=== PATIENT | female | born 1955 | race Caucasian/White ===

== ENCOUNTER → 2020-07-03 08:39 | Outpatient (BNVA) | payer MEDICARE, SELFPAY | PROVIDERS: PCP Family Medicine; Referring Provider Family Medicine; Visit Provider Orthopaedic Surgery | DX: M17.0 Bilateral primary osteoarthritis of knee (principal) | CPT/HCPCS: 20610; 99213; J7318 ==

== ENCOUNTER 2020-07-22 12:37 | Inpatient (IN) | payer MEDICARE, SELFPAY ==
--- NOTE | 2020-07-22 12:53 | ED_ITS ---
HPI - SOB/Dyspnea General Chief Complaint: Dyspnea Stated Complaint: SOB,FLUID ON THE LUNGS PER PT DR Time Seen by Provider: 07/22/20 12:53 Source: patient, EMS and park interpreter Mode of arrival: EMS Limitations: no limitations History of Present Illness HPI Narrative: 50lb weight gain, orthpnea, HUMPHREYS MD elicited complaint: shortness of breath Pertinent past history: congestive heart failure Onset (ago): week(s) (2) Context: other (no increased Na and taking bumex/metalozone) Timing: constant Severity: moderate Exacerbating factors: lying flat and exertion Relieving factors: nothing Known history of: congestive heart failure Treatment prior to arrival: oxygen Related Data Home Medications Medication Instructions Recorded Confirmed acetaminophen [Tylenol Extended 650 mg PO Q8H PRN 07/22/20 07/22/20 Release] albuterol sulfate 2.5 mg INHALATION Q4H PRN 07/22/20 07/22/20 amlodipine [Norvasc] 5 mg PO DAILY 07/22/20 07/22/20 apixaban [Eliquis] 5 mg PO BID 07/22/20 07/22/20 atorvastatin 80 mg PO DAILY 07/22/20 07/22/20 bumetanide 4 mg PO DAILY 07/22/20 07/22/20 fluticasone propionate [Flovent 1 puff INHALATION BID 07/22/20 07/22/20 HFA] furosemide [Lasix] 40 mg PO DAILY 07/22/20 07/22/20 insulin aspart U-100 [Novolog See Protocol SUBCUT TID 07/22/20 07/22/20 Flexpen U-100 Insulin] isosorbide mononitrate [Imdur] 60 mg PO DAILY 07/22/20 07/22/20 melatonin 3 mg PO BEDTIME PRN 07/22/20 07/22/20 metformin 1,000 mg PO DAILY 07/22/20 07/22/20 metolazone 2.5 mg PO DAILY 07/22/20 07/22/20 metoprolol tartrate 75 mg PO BID 07/22/20 07/22/20 olanzapine [Zyprexa] 15 mg PO BEDTIME 07/22/20 07/22/20 pantoprazole [Protonix] 20 mg PO DAILY 07/22/20 07/22/20 potassium chloride [Klor-Con M20] 20 meq PO DAILY 07/22/20 07/22/20 sertraline 200 mg PO DAILY 07/22/20 07/22/20 spironolactone 50 mg PO DAILY 07/22/20 07/22/20 trazodone 200 mg PO BEDTIME PRN 07/22/20 07/22/20 umeclidinium [Incruse Ellipta] 1 inh INHALATION DAILY 07/22/20 07/22/20 Allergies Allergy/AdvReac Type Severity Reaction Status Date / Time nitrofurantoin Allergy Intermediate SWELLING Verified 07/22/20 12:53 [From MACROBID] azithromycin [Azithromycin] Allergy Mild SWELLING Verified 07/22/20 12:53 Zithromax Allergy Unknown edema Uncoded 05/21/20 00:00 Review of Systems Review of Systems: Constitutional : No Fever, No Chills, positive fatigue ENT/Mouth : No sore throat, No Rhinorrhea, No Swallowing Difficulty Eyes: No Eye Pain, No Swelling, No Redness Cardiovascular : No Chest Pain, positive SOB, No Orthopnea, positive Edema Respiratory : No Cough, No Sputum, No Wheezing, positive dyspnea Gastrointestinal : No Nausea, No Vomiting, No Diarrhea, No abdominal Pain, No Hematochezia, No Melena Genitourinary : No Dysuria, No Urinary Frequency, No Hematuria Musculoskeletal : No joint pain, No Myalgias Skin : No Skin Lesions, No rash Neuro : No Weakness, No Numbness, No Dizziness, No Headache Psych : No Anxiety/Panic, No Depression Heme/Lymph: No Bruising, No Lymphadenopathy Endocrine : No Polyuria, No Polydipsia All other systems reviewed and are negative REPLACED BY [facility] Past Medical History Attestation statement: The following information was validated with the patient. Medical History CAD (coronary artery disease) CHF (congestive heart failure) Chronic pancreatitis COPD (chronic obstructive pulmonary disease) Degenerative arthritis of knee, bilateral Diabetes mellitus with hyperglycemia Diverticulosis Dysuria Essential hypertension Hyperlipidemia LDL goal <70 Memory loss Morbid obesity due to excess calories Pulmonary embolism SVT (supraventricular tachycardia) Type 2 diabetes mellitus with diabetic polyneuropathy Vertigo Surgical History Hx of cardiac catheterization Family History Family History (Updated 07/18/20 @ 11:50 by Brooks Melton) Father CVD (cardiovascular disease) Mother No problems noted. Maternal Grandmother Diabetes Maternal Uncle Diabetes Maternal Aunt Diabetes Social History Social History Smoking Status: Former smoker Advance Directives: Yes Advance Directives on File: Yes Advance Directives Date on File: 11/30/19 Physical Exam Vital Signs: Vital Signs: Vital Signs Temp Pulse Resp BP Pulse Ox 07/22/20 14:22 97.9 F 59 17 114/59 L 98 07/22/20 13:17 97.5 F 61 18 134/79 96 Body Mass Index 58.3 Appearance: Alert. Oriented X3. No acute distress. Eyes: Pupils equal, round and reactive to light. ENT: Pharynx normal. Neck: Normal inspection. Neck supple. CVS: Normal heart rate and rhythm. Pulses normal. Respiratory: No respiratory distress. Breath sounds rales bilateral bases Abdomen: Soft and nontender. obese Skin: Skin warm and dry. Normal skin color. Normal skin turgor. Extremities: 3+ pitting lower extremity edema. No calf ttp Neuro: Oriented X 3. No motor deficit. No sensory deficit. Course Course Course Narrative: plan to admit for diuresis, BNP higher than baseline MDM - SOB/Dyspnea MDM Narrative Medical decision making narrative: 65 yo female with hx of afib on eliquis, CHF, asthma, CAD s/p stent, HTN, DM who comes in with 50lb weight gain over 2 weeks, HUMPHREYS and orthopnea x 1 week - already on bumex and metolazone - is eating rice but denies increased Na+ intake, at this time will need labs, IV lasix, CXR for edema, likely admit given already on medications for CHF, she is very pale appearing, guiac sent off denies GIB symptoms Lab Data Result diagrams: 07/22/20 14:21 07/22/20 14:21 Labs: Lab Results 07/22/20 07/22/20 07/22/20 Range/Units 14:21 14:21 14:21 WBC 7.2 (4.8-10.8) X10*3/uL RBC 3.59 L (4.20-5.50) X10*6/uL Hgb 9.8 L (12.0-16.0) g/dl Hct 29.8 L (37-47) % MCV 83.0 (80-98) fL MCH 27.3 (27.0-33.0) pg MCHC 32.9 (31.0-35.0) g/dl RDW 14.8 (11.0-16.0) % Plt Count 195 (160-400) X10*3/uL MPV 9.0 L (9.4-12.3) fL Immature Gran % (Auto) 1.8 H (0.0-0.4) % Neut % (Auto) 68.6 (45-73) % Lymph % (Auto) 16.2 L (20-40) % George % (Auto) 10.5 (2-11) % Eos % (Auto) 2.5 (0-4) % Baso % (Auto) 0.4 (0-2) % Lymph # (Auto) 1.2 (1.2-4.9) X10*3/uL George # (Auto) 0.8 (0.1-1.2) X10*3/uL Eos # (Auto) 0.2 (0.0-0.4) X10*3/uL Baso # (Auto) 0.0 (0.0-0.2) X10*3/uL Abs Immat Gran (auto) 0.13 H (0.00-0.03) X10*3/uL Absolute Neuts (auto) 5.0 (2.0-8.3) X10*3/uL Absolute Nucleated RBC 0.000 (0.0-0.012) X10*3/uL Nucleated RBC % (auto) 0.0 (0.0-0.2) /100WBC PT 18.6 H (10.8-13.0) SEC INR 1.6 H (0.9-1.1) APTT 43.9 H (24.1-38.0) SEC Sodium 129 L (135-145) mmol/L Potassium 4.1 (3.3-5.1) mmol/l Chloride 85 L (96-108) mmol/L Carbon Dioxide 35 H (22-29) mmol/L Anion Gap 13 (12-20) BUN 34 H (9-16) mg/dL Creatinine 1.26 (0.5-1.4) mg/dL Estim Creat Clear Calc 69.1 Estimated GFR 42 Random Glucose 106 (60-115) mg/dL Calcium 8.3 L (8.4-10.2) mg/dL Magnesium 2.2 (1.6-2.6) mg/dL Total Bilirubin 1.3 H (0.0-1.0) mg/dL Direct Bilirubin 0.6 H (0.0-0.5) mg/dL AST 25 (5-31) U/L ALT 18 (0-31) U/L Alkaline Phosphatase 150 H (39-117) U/L Troponin I High Sens (<3.5-17.0) ng/L B-Natriuretic Peptide (<100) pg/mL Total Protein 6.7 (6.5-8.0) g/dL Albumin 3.9 (3.5-5.0) g/dL Stool Occult Blood (NEG) Coronavirus (PCR) (Negative) 07/22/20 07/22/20 07/22/20 Range/Units 14:21 14:21 14:21 WBC (4.8-10.8) X10*3/uL RBC (4.20-5.50) X10*6/uL Hgb (12.0-16.0) g/dl Hct (37-47) % MCV (80-98) fL MCH (27.0-33.0) pg MCHC (31.0-35.0) g/dl RDW (11.0-16.0) % Plt Count (160-400) X10*3/uL MPV (9.4-12.3) fL Immature Gran % (Auto) (0.0-0.4) % Neut % (Auto) (45-73) % Lymph % (Auto) (20-40) % George % (Auto) (2-11) % Eos % (Auto) (0-4) % Baso % (Auto) (0-2) % Lymph # (Auto) (1.2-4.9) X10*3/uL George # (Auto) (0.1-1.2) X10*3/uL Eos # (Auto) (0.0-0.4) X10*3/uL Baso # (Auto) (0.0-0.2) X10*3/uL Abs Immat Gran (auto) (0.00-0.03) X10*3/uL Absolute Neuts (auto) (2.0-8.3) X10*3/uL Absolute Nucleated RBC (0.0-0.012) X10*3/uL Nucleated RBC % (auto) (0.0-0.2) /100WBC PT (10.8-13.0) SEC INR (0.9-1.1) APTT (24.1-38.0) SEC Sodium (135-145) mmol/L Potassium (3.3-5.1) mmol/l Chloride (96-108) mmol/L Carbon Dioxide (22-29) mmol/L Anion Gap (12-20) BUN (9-16) mg/dL Creatinine (0.5-1.4) mg/dL Estim Creat Clear Calc Estimated GFR Random Glucose (60-115) mg/dL Calcium (8.4-10.2) mg/dL Magnesium (1.6-2.6) mg/dL Total Bilirubin (0.0-1.0) mg/dL Direct Bilirubin (0.0-0.5) mg/dL AST (5-31) U/L ALT (0-31) U/L Alkaline Phosphatase (39-117) U/L Troponin I High Sens < 3.5 (<3.5-17.0) ng/L B-Natriuretic Peptide 511 H (<100) pg/mL Total Protein (6.5-8.0) g/dL Albumin (3.5-5.0) g/dL Stool Occult Blood NEG (NEG) Coronavirus (PCR) NEGATIVE (Negative) ECG Data Attestation: I personally reviewed and interpreted this ECG as follows: ECG interpretation date: 07/22/20 ECG interpretation time: 13:22 Interpretation: Rate: 61 Rhythm: NSR [place]: left, LVH Normal P waves. Normal NADIRA. Normal QRS complex. ST T wave : normal qTC: normal prior studies: no acute ischemia The study has been interpreted contemporaneously by me. . Discharge Plan Discharge Clinical Impression: Congestive cardiac failure Patient Disposition: Admitted As Inpatient Prescriptions: No Action furosemide [Lasix] 40 mg Tablet 40 mg PO DAILY RF: 0 metolazone 2.5 mg Tablet 2.5 mg PO DAILY RF: 0 atorvastatin 80 mg Tablet 80 mg PO DAILY RF: 0 bumetanide 2 mg Tablet 4 mg PO DAILY RF: 0 albuterol sulfate 2.5 mg /3 mL (0.083 %) Solution For Nebulization 2.5 mg INHALATION Q4H PRN (Reason: Shortness Of Breath) RF: 0 sertraline 100 mg Tablet 200 mg PO DAILY RF: 0 melatonin 3 mg Tablet 3 mg PO BEDTIME PRN (Reason: Sleep) RF: 0 amlodipine [Norvasc] 5 mg Tablet 5 mg PO DAILY RF: 0 acetaminophen [Tylenol Extended Release] 650 mg Tablet Extended Release 650 mg PO Q8H PRN (Reason: Pain (Scale Score 1-3)) RF: 0 pantoprazole [Protonix] 20 mg Tablet,Delayed Release (Dr/Ec) 20 mg PO DAILY RF: 0 isosorbide mononitrate [Imdur] 60 mg Tablet Extended Release 24 Hr 60 mg PO DAILY RF: 0 potassium chloride [Klor-Con M20] 20 mEq Tablet,Er Particles/Crystals 20 meq PO DAILY RF: 0 trazodone 100 mg Tablet 200 mg PO BEDTIME PRN (Reason: Sleep) RF: 0 metoprolol tartrate 50 mg Tablet 75 mg PO BID RF: 0 olanzapine [Zyprexa] 15 mg Tablet 15 mg PO BEDTIME RF: 0 Flovent HFA 110 mcg/actuation Hfa Aerosol Inhaler 1 puff INHALATION BID RF: 0 spironolactone 50 mg Tablet 50 mg PO DAILY RF: 0 insulin aspart U-100 [Novolog Flexpen U-100 Insulin] 100 unit/mL (3 mL) Insulin Pen See Protocol unit SUBCUT TID RF: 0 metformin 500 mg Tablet Extended Release 24hr 1,000 mg PO DAILY RF: 0 Eliquis 5 mg Tablet 5 mg PO BID RF: 0 Incruse Ellipta 62.5 mcg/actuation Blister With Device 1 inh INHALATION DAILY RF: 0
--- NOTE | 2020-07-22 12:54 | ECG_ITS ---
Test Reason : SOB Blood Pressure : / mmHG Vent. Rate : 061 BPM Atrial Rate : 061 BPM P-R Int : 158 ms QRS Dur : 100 ms QT Int : 486 ms P-R-T Axes : 049 -14 009 degrees QTc Int : 489 ms Normal sinus rhythm Left axis deviation Minimal voltage criteria for LVH, may be normal variant Borderline ECG When compared with ECG of 25-MAR-2020 19:46, No significant change was found Referred By: Loree Headley Electronically Signed By:JORGE LUIS SALAZAR MD
--- NOTE | 2020-07-22 13:15 | XR_ITS ---
EXAMINATION: XR CHEST CLINICAL INFORMATION: Dyspnea. COMPARISON: None TECHNIQUE: Frontal view of the chest was obtained. FINDINGS: The lungs are well-expanded with increased vascular markings suggestive of mild CHF. Heart size borderline normal. No gross bony abnormality. XR/XR chest 1V IMPRESSION: Suspect mild CHF.
[2020-07-22 13:17] VITALS: BP 134/79; BP 138/74; PULSE 61; PULSE 70; RESP 18; TEMP 36.4; O2SAT 95; O2SAT 96; BMI 58.3
[2020-07-22 14:22] VITALS: BP 114/59; PULSE 59; RESP 17; TEMP 36.6; O2SAT 98
--- NOTE | 2020-07-22 14:22 | PC.NURSE ---
complaining that cath is painful. requesting itbe removed. this rn askin to talk to pt, has good urine output. unlabored at rest 45degrees hob
[2020-07-22] MEDS: Furosemide 40 MG/4 ML VIAL IVPUSH (14:38)
[2020-07-22 14:51] LABS: MANUAL DIFF FLAG NO
[2020-07-22 14:52] LABS: Basophils Percent Auto 0.4 % (0-2); Eosinophils Absolute Auto 0.2 X10*3/uL (0.0-0.4); Eosinophils Percent Auto 2.5 % (0-4); Hematocrit 29.8 % (37-47); Hemoglobin 9.8 g/dl (12.0-16.0); Imm Gran Abs Auto 0.13 X10*3/uL (0.00-0.03); Imm Gran Pct Auto 1.8 % (0.0-0.4); Lymphocytes Absolute Auto 1.2 X10*3/uL (1.2-4.9); Lymphocytes Percent Auto 16.2 % (20-40); Mean Corpuscular HGB Conc 32.9 g/dl (31.0-35.0); Mean Corpuscular Hemoglobin 27.3 pg (27.0-33.0); Monocytes Absolute Auto 0.8 X10*3/uL (0.1-1.2); Monocytes Percent Auto 10.5 % (2-11); Neutrophils Percent Auto 68.6 % (45-73); Platelet Count 195 X10*3/uL (160-400); Red Blood Count 3.59 X10*6/uL (4.20-5.50); Red Cell Distribution Width 14.8 % (11.0-16.0); White Blood Count 7.2 X10*3/uL (4.8-10.8)
[2020-07-22 14:53] LABS: OBS Int Ctl Valid YES; OBS1 NEG (NEG)
[2020-07-22 14:59] LABS: INTERNATIONAL NORM RATIO 1.6 (0.9-1.1); Prothrombin Time 18.6 SEC (10.8-13.0)
[2020-07-22 15:01] LABS: Partial Thromboplastin Time 43.9 SEC (24.1-38.0)
[2020-07-22 15:28] LABS: SARS COV2 PCR INHOUSE NEGATIVE (Negative)
[2020-07-22 15:33] LABS: Alanine Aminotransferase 18 U/L (0-31); Albumin Level 3.9 g/dL (3.5-5.0); Alkaline Phosphatase 150 U/L (39-117); Anion Gap 13 (12-20); Aspartate Amino Transferase 25 U/L (5-31); Bilirubin Direct 0.6 mg/dL (0.0-0.5); Bilirubin Total 1.3 mg/dL (0.0-1.0); Blood Urea Nitrogen 34 mg/dL (9-16); Calcium 8.3 mg/dL (8.4-10.2); Carbon Dioxide 35 mmol/L (22-29); Chloride 85 mmol/L (96-108); Creatinine Clr Calc Pharmacy 69.1; Estimated Glomerular Filt Rate 42; Glucose Random 106 mg/dL (60-115); Magnesium 2.2 mg/dL (1.6-2.6); Potassium 4.1 mmol/l (3.3-5.1); Sodium 129 mmol/L (135-145); Total Protein 6.7 g/dL (6.5-8.0)
[2020-07-22 15:34] LABS: B Type Natriuretic Peptide 511 pg/mL (<100); Troponin-I High Sensitivity < 3.5 ng/L (<3.5-17.0)
--- NOTE | 2020-07-22 16:27 | P.HPIM_ITS ---
History of Present Illness Date of Service: 07/22/20 Chief Complaint: weight gain 65F Presented with weight gain and weakness. Patient has medical history significant for chronic diastolic CHF. Was previously worked up for mitral valve replacement due to severe mitral regurgitation. However, on preop cardiac catheterization in March 2020 which showed to be mild. Patient states that she was feeling well about 2 weeks prior to presentation. Over the past week she states she gained 50 lb, has been short of breath on mild exertion. Has been having difficulty sleeping. Denies orthopnea. patient had no chest pain, no fever, no chills. Review of Systems Review of Systems: Constitutional: Denies fever, denies Chills Eyes: denies blurry vision ENT: denies sore throat CVS: denies chest pain Respiratory: dyspnea GI: no abdominal pain : denies dysuria MSK: denies neck pain Skin: denies rash Neuro: denies specific motor weakness Psych: denies suicidal ideation Endocrine: denies heat/cold intoleratnce Hematologic: denies easy bleeding Allergy: denies hives [facility] Medical History (Updated 07/22/20 @ 16:33 by Gigi Hickey MD) CAD (coronary artery disease) CHF (congestive heart failure) Chronic pancreatitis COPD (chronic obstructive pulmonary disease) Degenerative arthritis of knee, bilateral Diverticulosis Dysuria Essential hypertension Hyperlipidemia LDL goal <70 Memory loss Morbid obesity due to excess calories Pulmonary embolism SVT (supraventricular tachycardia) Type 2 diabetes mellitus with diabetic polyneuropathy Vertigo Family History Father CVD (cardiovascular disease) Mother No problems noted. Maternal Grandmother Diabetes Maternal Uncle Diabetes Maternal Aunt Diabetes Family history: reviewed and not pertinent Surgical History Hx of cardiac catheterization Social History Smoking Status: Former smoker Advance Directives: Yes Advance Directives on File: Yes Advance Directives Date on File: 11/30/19 Meds Allergies Allergy/AdvReac Type Severity Reaction Status Date / Time nitrofurantoin Allergy Intermediate SWELLING Verified 07/22/20 12:53 [From MACROBID] azithromycin [Azithromycin] Allergy Mild SWELLING Verified 07/22/20 12:53 Zithromax Allergy Unknown edema Uncoded 05/21/20 00:00 Home Medications Medication Instructions Recorded Confirmed Type acetaminophen [Tylenol Extended 650 mg PO Q8H PRN 07/22/20 07/22/20 History Release] albuterol sulfate 2.5 mg INHALATION Q4H PRN 07/22/20 07/22/20 History amlodipine [Norvasc] 5 mg PO DAILY 07/22/20 07/22/20 History apixaban [Eliquis] 5 mg PO BID 07/22/20 07/22/20 History atorvastatin 80 mg PO DAILY 07/22/20 07/22/20 History bumetanide 4 mg PO DAILY 07/22/20 07/22/20 History fluticasone propionate [Flovent 1 puff INHALATION BID 07/22/20 07/22/20 History HFA] furosemide [Lasix] 40 mg PO DAILY 07/22/20 07/22/20 History insulin aspart U-100 [Novolog See Protocol SUBCUT TID 07/22/20 07/22/20 History Flexpen U-100 Insulin] isosorbide mononitrate [Imdur] 60 mg PO DAILY 07/22/20 07/22/20 History melatonin 3 mg PO BEDTIME PRN 07/22/20 07/22/20 History metformin 1,000 mg PO DAILY 07/22/20 07/22/20 History metolazone 2.5 mg PO DAILY 07/22/20 07/22/20 History metoprolol tartrate 75 mg PO BID 07/22/20 07/22/20 History olanzapine [Zyprexa] 15 mg PO BEDTIME 07/22/20 07/22/20 History pantoprazole [Protonix] 20 mg PO DAILY 07/22/20 07/22/20 History potassium chloride [Klor-Con M20] 20 meq PO DAILY 07/22/20 07/22/20 History sertraline 200 mg PO DAILY 07/22/20 07/22/20 History spironolactone 50 mg PO DAILY 07/22/20 07/22/20 History trazodone 200 mg PO BEDTIME PRN 07/22/20 07/22/20 History umeclidinium [Incruse Ellipta] 1 inh INHALATION DAILY 07/22/20 07/22/20 History Physical Exam Vital Signs and Narrative: Vital Signs: Last Vital Signs Temp 97.9 F 07/22/20 14:22 Pulse 59 07/22/20 14:22 Resp 17 07/22/20 14:22 BP 114/59 L 07/22/20 14:22 Pulse Ox 98 07/22/20 14:22 Body Mass Index 58.3 General: no acute distress HEENT: atraumatic Neck: normal to visual inspection CVS: S1, S2, RRR, 3+ edema Resp: basilar rales Chest: non tender GI: soft, non tender, non distended : no CVA tenderness Skin: no rashes Extremities: no edema Neuro: Oriented X3, grossly intact Psych: cooperative, Results Labs Labs: Laboratory Tests 07/22/20 07/22/20 07/22/20 14:21 14:21 14:21 WBC 7.2 RBC 3.59 L Hgb 9.8 L Hct 29.8 L MCV 83.0 MCH 27.3 MCHC 32.9 RDW 14.8 Plt Count 195 MPV 9.0 L Immature Gran % (Auto) 1.8 H Neut % (Auto) 68.6 Lymph % (Auto) 16.2 L [place] % (Auto) 10.5 Eos % (Auto) 2.5 Baso % (Auto) 0.4 Lymph # (Auto) 1.2 [place] # (Auto) 0.8 Eos # (Auto) 0.2 Baso # (Auto) 0.0 Abs Immat Gran (auto) 0.13 H Absolute Neuts (auto) 5.0 Absolute Nucleated RBC 0.000 Nucleated RBC % (auto) 0.0 PT 18.6 H INR 1.6 H APTT 43.9 H Sodium 129 L Potassium 4.1 Chloride 85 L Carbon Dioxide 35 H Anion Gap 13 BUN 34 H Creatinine 1.26 Estim Creat Clear Calc 69.1 Estimated GFR 42 Random Glucose 106 Calcium 8.3 L Magnesium 2.2 Total Bilirubin 1.3 H Direct Bilirubin 0.6 H AST 25 ALT 18 Alkaline Phosphatase 150 H Troponin I High Sens B-Natriuretic Peptide Total Protein 6.7 Albumin 3.9 Stool Occult Blood Coronavirus (PCR) 07/22/20 07/22/20 07/22/20 14:21 14:21 14:21 WBC RBC Hgb Hct MCV MCH MCHC RDW Plt Count MPV Immature Gran % (Auto) Neut % (Auto) Lymph % (Auto) [place] % (Auto) Eos % (Auto) Baso % (Auto) Lymph # (Auto) [place] # (Auto) Eos # (Auto) Baso # (Auto) Abs Immat Gran (auto) Absolute Neuts (auto) Absolute Nucleated RBC Nucleated RBC % (auto) PT INR APTT Sodium Potassium Chloride Carbon Dioxide Anion Gap BUN Creatinine Estim Creat Clear Calc Estimated GFR Random Glucose Calcium Magnesium Total Bilirubin Direct Bilirubin AST ALT Alkaline Phosphatase Troponin I High Sens < 3.5 B-Natriuretic Peptide 511 H Total Protein Albumin Stool Occult Blood NEG Coronavirus (PCR) NEGATIVE Assessment and Plan (1) Paroxysmal atrial fibrillation: Status: Acute (2) Mitral regurgitation: Status: Acute (3) Type 2 diabetes mellitus with diabetic polyneuropathy: Status: Acute (4) Hyperlipidemia LDL goal <70: Status: Acute (5) Essential hypertension: Status: Acute (6) Degenerative arthritis of knee, bilateral: Status: Acute (7) Acute on chronic diastolic (congestive) heart failure: Status: Acute (8) CAD (coronary artery disease): Problem details: KAREN to LCx for ACS,10/02. Status: Acute (9) Morbid obesity due to excess calories: Status: Acute 65F presented with weight gain and fatigue acute on chronic diastolic chf complicated by morbid obesity bumex, cardio eval, monitor electrolytes, is and os pafib eliquis, metoprolol DM inuslin HTN aldactone, metoprolol, amlodipine COPD stable anemia no active bleed, monitor, no need for transfusion, continue eliquis CAD eliquis, statin
[2020-07-22 16:33] VITALS: BP 116/59; PULSE 63; RESP 18; O2SAT 96
--- NOTE | 2020-07-22 16:34 | PC.NURSE ---
alert. unlabroed resp. skin pwd. awaiting transfer. has seen the hospitalist.
--- NOTE | 2020-07-22 17:35 | PC.NURSE ---
rn to rn fuad huerta in [facility] [place]
[2020-07-22 18:08] VITALS: BMI 56.8
[2020-07-22 18:33] VITALS: BP 125/57; PULSE 65; RESP 18; TEMP 36.4; O2SAT 95
[2020-07-22 19:17] VITALS: BP 123/62; PULSE 73; RESP 19; TEMP 36.5; O2SAT 94
[2020-07-22 19:55] LABS: Glucose, Whole Blood 161 mg/dL (60-115)
[2020-07-22 20:35] LABS: Glucose, Whole Blood 246 mg/dL (60-115)
[2020-07-22] MEDS: Metoprolol Tartrate 50 MG TABLET 75 MG PO (21:18)
[2020-07-22] MEDS: Bumetanide 1 MG/4 ML VIAL 2 MG IV (21:18)
[2020-07-22] MEDS: 0.9 % Sodium Chloride Flush 3 ML SYRINGE IVFLUSH (21:18)
[2020-07-22] MEDS: OLANZapine 7.5 MG TABLET 15 MG PO (21:19)
[2020-07-22] MEDS: Melatonin 3 MG TABLET PO (21:19)
[2020-07-22] MEDS: traZODone HCL 100 MG TABLET 200 MG PO (21:19)
[2020-07-22] MEDS: Apixaban 5 MG TABLET PO (21:19)
[2020-07-22] MEDS: Insulin Lispro 100 UNIT/ML 3 ML VIAL SUBCUT (21:19)
[2020-07-22] MEDS: Fluticasone Propionate 100 MCG BLST.W.DEV 1 PUFF INHALE (21:44)
[2020-07-22 23:44] VITALS: BP 143/60; PULSE 73; RESP 20; TEMP 36.6; O2SAT 100
[2020-07-23 03:37] VITALS: BP 122/55; PULSE 69; RESP 18; TEMP 37.1; O2SAT 91
[2020-07-23 05:45] VITALS: BMI 56.4
[2020-07-23 06:22] LABS: MANUAL DIFF FLAG NO
[2020-07-23] MEDS: Omeprazole 20 MG CAPSULE.DR PO (06:28)
[2020-07-23 06:58] LABS: Basophils Percent Auto 0.3 % (0-2); Eosinophils Percent Auto 0.4 % (0-4); Hematocrit 28.9 % (37-47); Hemoglobin 9.7 g/dl (12.0-16.0); Imm Gran Abs Auto 0.07 X10*3/uL (0.00-0.03); Lymphocytes Absolute Auto 0.8 X10*3/uL (1.2-4.9); Mean Corpuscular HGB Conc 33.6 g/dl (31.0-35.0); Mean Corpuscular Volume 83.5 fL (80-98); Mean Platelet Volume 9.2 fL (9.4-12.3); Monocytes Absolute Auto 0.6 X10*3/uL (0.1-1.2); Monocytes Percent Auto 8.9 % (2-11); Neutrophils Absolute Auto 5.4 X10*3/uL (2.0-8.3); Neutrophils Percent Auto 78.4 % (45-73); Platelet Count 185 X10*3/uL (160-400); Red Blood Count 3.46 X10*6/uL (4.20-5.50); White Blood Count 6.8 X10*3/uL (4.8-10.8)
[2020-07-23 07:10] LABS: Anion Gap 14 (12-20); Blood Urea Nitrogen 37 mg/dL (9-16); Calcium 8.1 mg/dL (8.4-10.2); Carbon Dioxide 37 mmol/L (22-29); Chloride 84 mmol/L (96-108); Creatinine Clr Calc Pharmacy 68.8; Estimated Glomerular Filt Rate 43; Glucose Random 208 mg/dL (60-115); Potassium 3.9 mmol/l (3.3-5.1); Sodium 131 mmol/L (135-145)
[2020-07-23 07:19] VITALS: BP 101/50; PULSE 69; RESP 20; TEMP 37.8; O2SAT 93
[2020-07-23] MEDS: Fluticasone Propionate 100 MCG BLST.W.DEV 1 PUFF INHALE ×2 (07:30→21:11)
[2020-07-23 07:50] LABS: Glucose, Whole Blood 253 mg/dL (60-115)
[2020-07-23] MEDS: Insulin Lispro 100 UNIT/ML 3 ML VIAL SUBCUT ×4 (08:37→21:24)
[2020-07-23] MEDS: Potassium Chloride ER 20 MEQ TAB.ER.PRT PO (08:38)
[2020-07-23] MEDS: Atorvastatin Calcium 80 MG TABLET PO (08:38)
[2020-07-23] MEDS: 0.9 % Sodium Chloride Flush 3 ML SYRINGE IVFLUSH ×3 (08:38→23:50)
[2020-07-23] MEDS: Sertraline HCL 100 MG TABLET 200 MG PO (08:38)
[2020-07-23] MEDS: Apixaban 5 MG TABLET PO ×2 (08:38→21:02)
--- NOTE | 2020-07-23 08:55 | MHC.CM.PN ---
Patient lives in an apartment with her Daughter/HCP and she uses a walker to assist with mobility. Patient receives 3 hours/day of [facility] services and she is active with [facility]. Patient's goal is to return home with resumption of these services and CM has initiated and will follow for dc planning.IMM addressed with Patient and original has been given to her and a copy has been placed on the chart.PCP is Dr. Mily Waite.
[2020-07-23] MEDS: metOLazone 2.5 MG TABLET PO (09:34)
[2020-07-23] MEDS: Metoprolol Tartrate 50 MG TABLET 75 MG PO ×2 (09:35→21:02)
[2020-07-23] MEDS: Spironolactone 25 MG TABLET 50 MG PO (09:36)
[2020-07-23] MEDS: Acetaminophen 325 MG TABLET 650 MG PO (09:37)
[2020-07-23] MEDS: Isosorbide Mononitrate 60 MG TAB.ER.24H PO (09:37)
[2020-07-23] MEDS: Bumetanide 1 MG/4 ML VIAL 2 MG IV ×2 (09:38→21:02)
[2020-07-23] MEDS: amLODIPine Besylate 5 MG TABLET PO (09:39)
[2020-07-23 09:44] VITALS: BP 137/52; PULSE 69
[2020-07-23 11:32] LABS: Glucose, Whole Blood 340 mg/dL (60-115)
[2020-07-23 11:59] VITALS: BMI 56.4
--- NOTE | 2020-07-23 12:11 | MHC.CM.PN ---
Patient is active with [facility] (formerly [facility]).
--- NOTE | 2020-07-23 12:28 | P.PNIM_ITS ---
Subjective Subjective Date of Service: 07/23/20 Interval History: patient seen and examined at bedside patient still has significant edema Constitutional Constitutional: Reports weakness Cardiovascular Cardiovascular: Denies chest pain and Reports dyspnea Respiratory Respiratory: Reports dyspnea Gastrointestinal Gastrointestinal: Denies vomiting Neurologic Neurologic: Reports weakness Physical Exam Vital Signs: Vital Signs: Vital Signs Temp Pulse Resp BP Pulse Ox 07/23/20 09:44 69 137/52 L 07/23/20 07:19 100.1 F 69 20 101/50 L 93 07/23/20 03:37 98.7 F 69 18 122/55 L 91 L 07/22/20 23:44 98 F 73 20 143/60 H 100 07/22/20 19:17 97.7 F 73 19 123/62 94 07/22/20 18:33 97.6 F 65 18 125/57 L 95 07/22/20 16:33 63 18 116/59 L 96 07/22/20 14:22 97.9 F 59 17 114/59 L 98 07/22/20 13:17 97.5 F 61 18 134/79 96 Body Mass Index 56.4 General: no acute distress HEENT: atraumatic Neck: normal to visual inspection CVS: S1, S2, RRR, 3+ edema Resp: basilar rales Chest: non tender GI: soft, non tender, non distended : no CVA tenderness Skin: no rashes Extremities: no edema Neuro: Oriented X3, grossly intact Psych: cooperative, Objective Data Current Medications Generic Name Dose Route Start Last Admin Trade Name Ayushq PRN Reason Stop Dose Admin Acetaminophen 650 mg 07/22/20 16:46 07/23/20 09:37 Acetaminophen 325 Mg Tablet PO 650 mg Q8H PRN Administration Pain (Scale Score 1-3) Amlodipine Besylate 5 mg 07/23/20 09:00 07/23/20 09:39 Amlodipine Besylate 5 Mg Tablet PO 5 mg DAILY ROCKY Administration Protocol Apixaban 5 mg 07/22/20 21:00 07/23/20 08:38 Apixaban 5 Mg Tablet PO 5 mg BID ROCKY Administration Atorvastatin Calcium 80 mg 07/23/20 09:00 07/23/20 08:38 Atorvastatin Calcium 80 Mg Tablet PO 80 mg DAILY ROCKY Administration Bumetanide 2 mg 07/22/20 21:00 07/23/20 09:38 Bumetanide 1 Mg/4 Ml Vial IV 2 mg BID ROCKY Administration Protocol Fluticasone Propionate 1 puff 07/22/20 21:00 07/23/20 07:30 Fluticasone Propionate 100 Mcg Blst.W.Dev INHALE 1 puff BID ROCKY Administration Insulin Human Lispro 0 unit 07/22/20 21:00 07/23/20 12:06 Insulin Lispro 100 Unit/Ml 3 Ml Vial SUBCUT 07/23/20 16:43 8 unit QIDACHS ROCKY Administration Protocol Isosorbide Mononitrate 60 mg 07/23/20 09:00 07/23/20 09:37 Isosorbide Mononitrate 60 Mg Tab.Er.24h PO 60 mg DAILY ROCKY Administration Protocol Melatonin 3 mg 07/22/20 16:37 07/22/20 21:19 Melatonin 3 Mg Tablet PO 3 mg BEDTIME PRN Administration Sleep Metolazone 2.5 mg 07/23/20 09:00 07/23/20 09:34 Metolazone 2.5 Mg Tablet PO 2.5 mg DAILY ROCKY Administration Metoprolol Tartrate 75 mg 07/22/20 21:00 07/23/20 09:35 Metoprolol Tartrate 50 Mg Tablet PO 75 mg BID ROCKY Administration Protocol Olanzapine 15 mg 07/22/20 21:00 07/22/20 21:19 Olanzapine 7.5 Mg Tablet PO 15 mg BEDTIME ROCKY Administration Omeprazole 20 mg 07/23/20 06:30 07/23/20 06:28 Omeprazole 20 Mg Capsule. PO 20 mg DAILY@0630 COUNT INCLUDES THE [facility] Administration Pharmacy Consult 1 each 07/22/20 12:54 Consult Rx Perform Med Rec MISCELLANE ONCE PRN Consult order Potassium Chloride 20 meq 07/23/20 09:00 07/23/20 08:38 Potassium Chloride Er 20 Meq Tab.Er.Prt PO 20 meq DAILY ROCKY Administration Sertraline HCl 200 mg 07/23/20 09:00 07/23/20 08:38 Sertraline Hcl 100 Mg Tablet PO 200 mg DAILY ROCKY Administration Sodium Chloride 3 ml 07/23/20 00:00 07/23/20 08:38 0.9 % Sodium Chloride Flush 3 Ml Syringe IVFLUSH 3 ml QSHIFT ROCKY Administration Spironolactone 50 mg 07/23/20 09:00 07/23/20 09:36 Spironolactone 25 Mg Tablet PO 50 mg DAILY ROCKY Administration Protocol Trazodone HCl 200 mg 07/22/20 16:37 07/22/20 21:19 Trazodone Hcl 100 Mg Tablet PO 200 mg BEDTIME PRN Administration Sleep Labs CBC & Chem 7: 07/23/20 05:52 07/23/20 05:52 Assessment and Plan (1) Paroxysmal atrial fibrillation: Status: Acute (2) Mitral regurgitation: Status: Acute (3) Type 2 diabetes mellitus with diabetic polyneuropathy: Status: Acute (4) Hyperlipidemia LDL goal <70: Status: Acute (5) Essential hypertension: Status: Acute (6) Degenerative arthritis of knee, bilateral: Status: Acute (7) Acute on chronic diastolic (congestive) heart failure: Status: Acute (8) CAD (coronary artery disease): Problem details: KAREN to LCx for ACS,10/02. Status: Acute (9) Morbid obesity due to excess calories: Status: Acute Assessment and Plan: 65F presented with weight gain and fatigue Acute on chronic diastolic chf complicated by morbid obesity Still significant edema continue IV bumex monitor intake and output monitor daily weight cardiology following continue Lopressor and Aldactone pafib continue eliquis, continue metoprolol DM continue sliding scale inuslin monitor blood glucose HTN continue aldactone, metoprolol, amlodipine COPD stable Chronic Anemia no active bleed monitor CBC no need for transfusion CAD continue eliquis, statin DVT prophylaxis Eliquis
--- NOTE | 2020-07-23 12:51 | P.CONCA_ITS ---
History of Present Illness History of Present Illness Date of Consult: July 23, 2020 Chief complaint: CHF Narrative: 65-year-old female with known coronary artery disease with previous left circumflex intervention, diastolic heart failure, mitral regurgitation, chronic pancreatitis, COPD, degenerative joint disease, diverticulosis, hypertension, hyperlipidemia, memory issues, morbid obesity, history of pulmonary embolism, SVT, type 2 diabetes and vertigo who is presenting with weakness and dyspnea. She had pulmonary hemorrhage while she was on Eliquis and was put on steroids. Subsequent to that she gained significant amount of weight and was admitted few times with dyspnea and mild heart failure. She continues to be morbidly obese unfortunately and is complaining of just feeling weak and tired. She has some orthopnea and dyspnea with minimal exertion. She has lower extremity edema. She has been taking medications regularly. Review of Systems Review of Systems: Dyspnea Yes all other systems are reviewed and are negative Constitutional: Constitutional: Reports weakness Neurologic: Reports weakness PMFSH Past Medical History Medical History (Updated 07/22/20 @ 16:33 by Gigi Hickey MD) CAD (coronary artery disease) CHF (congestive heart failure) Chronic pancreatitis COPD (chronic obstructive pulmonary disease) Degenerative arthritis of knee, bilateral Diverticulosis Dysuria Essential hypertension Hyperlipidemia LDL goal <70 Memory loss Morbid obesity due to excess calories Pulmonary embolism SVT (supraventricular tachycardia) Type 2 diabetes mellitus with diabetic polyneuropathy Vertigo Family History Family History Father CVD (cardiovascular disease) Mother No problems noted. Maternal Grandmother Diabetes Maternal Uncle Diabetes Maternal Aunt Diabetes Family history: reviewed and not pertinent Surgical History Surgical History Hx of cardiac catheterization Social History Social History Household Members: Family Housing: Apartment Do you presently have visiting nurse or other home services: Yes Alcohol intake: never Smoking Status: Never smoker Use of substances other than those prescribed or required for medical reasons: No Currently Displaying Signs/Symptoms of Drug Intoxication Withdrawal: No Have you been hit, kicked, punched, or otherwise hurt by someone within the past year? If so, by whom?: No Do you feel safe in your current relationship?: No Is there a partner from a previous relationship who is making you feel unsafe now?: No Are you made to feel afraid or neglected: No Advance Directives: Yes Advance Directives on File: Yes Advance Directives Date on File: 11/30/19 Do you have thoughts of harming others: None Do you have a plan to hurt others: No Plan Recently lost weight without trying: No service: No Current occupational status: disabled Meds Allergies Allergy/AdvReac Type Severity Reaction Status Date / Time nitrofurantoin Allergy Intermediate SWELLING Verified 07/22/20 12:53 [From MACROBID] azithromycin [Azithromycin] Allergy Mild SWELLING Verified 07/22/20 12:53 Zithromax Allergy Unknown Swelling Uncoded 07/22/20 18:22 Home Medications Medication Instructions Recorded Confirmed Type acetaminophen [Tylenol Extended 650 mg PO Q8H PRN 07/22/20 07/22/20 History Release] albuterol sulfate 2.5 mg INHALATION Q4H PRN 07/22/20 07/22/20 History amlodipine [Norvasc] 5 mg PO DAILY 07/22/20 07/22/20 History apixaban [Eliquis] 5 mg PO BID 07/22/20 07/22/20 History atorvastatin 80 mg PO DAILY 07/22/20 07/22/20 History bumetanide 2 mg PO BID 07/22/20 07/23/20 History fluticasone propionate [Flovent 1 puff INHALATION BID 07/22/20 07/22/20 History HFA] furosemide [Lasix] 40 mg PO DAILY 07/22/20 History insulin aspart U-100 [Novolog See Protocol SUBCUT TID 07/22/20 07/22/20 History Flexpen U-100 Insulin] isosorbide mononitrate [Imdur] 60 mg PO DAILY 07/22/20 07/22/20 History melatonin 3 mg PO BEDTIME PRN 07/22/20 07/22/20 History metformin 1,000 mg PO DAILY 07/22/20 07/22/20 History metolazone 2.5 mg PO DAILY 07/22/20 07/22/20 History metoprolol tartrate 75 mg PO BID 07/22/20 07/22/20 History olanzapine [Zyprexa] 15 mg PO BEDTIME 07/22/20 07/22/20 History pantoprazole [Protonix] 20 mg PO DAILY 07/22/20 07/22/20 History potassium chloride [Klor-Con M20] 20 meq PO DAILY 07/22/20 07/22/20 History sertraline 200 mg PO DAILY 07/22/20 07/22/20 History spironolactone 50 mg PO DAILY 07/22/20 07/22/20 History trazodone 200 mg PO BEDTIME PRN 07/22/20 07/22/20 History umeclidinium [Incruse Ellipta] 1 inh INHALATION DAILY 07/22/20 07/22/20 History Physical Exam Vital Signs: Vital Signs: Vital Signs Temp Pulse Resp BP Pulse Ox 07/23/20 09:44 69 137/52 L 07/23/20 07:19 100.1 F 69 20 101/50 L 93 07/23/20 03:37 98.7 F 69 18 122/55 L 91 L 07/22/20 23:44 98 F 73 20 143/60 H 100 07/22/20 19:17 97.7 F 73 19 123/62 94 07/22/20 18:33 97.6 F 65 18 125/57 L 95 07/22/20 16:33 63 18 116/59 L 96 07/22/20 14:22 97.9 F 59 17 114/59 L 98 07/22/20 13:17 97.5 F 61 18 134/79 96 Body Mass Index 56.4 GENERAL APPEARANCE: in no acute distress, morbidly obese. HEENT: unremarkable. HEAD: normocephalic, atraumatic. NECK/THYROID: cannot assess JVD because of body habitus but nothing obvious seen SKIN: no suspicious lesions, warm and dry. HEART: no murmurs, regular rate and rhythm, S1, S2 normal. LUNGS: coarse breath sounds bilaterally. ABDOMEN: normal, bowel sounds present, soft, nontender, nondistended. EXTREMITIES: 1+ edema bilaterally. PERIPHERAL PULSES: equal. NEUROLOGIC: nonfocal, alert and oriented. PSYCH: mood/affect full range. Results Labs and Meds Result diagrams: 07/23/20 05:52 07/23/20 05:52 Lab results: Laboratory Results - last 24 hr 07/22/20 07/22/20 07/22/20 14:21 14:21 14:21 WBC 7.2 RBC 3.59 L Hgb 9.8 L Hct 29.8 L MCV 83.0 MCH 27.3 MCHC 32.9 RDW 14.8 Plt Count 195 MPV 9.0 L Immature Gran % (Auto) 1.8 H Neut % (Auto) 68.6 Lymph % (Auto) 16.2 L [place] % (Auto) 10.5 Eos % (Auto) 2.5 Baso % (Auto) 0.4 Lymph # (Auto) 1.2 [place] # (Auto) 0.8 Eos # (Auto) 0.2 Baso # (Auto) 0.0 Abs Immat Gran (auto) 0.13 H Absolute Neuts (auto) 5.0 Absolute Nucleated RBC 0.000 Nucleated RBC % (auto) 0.0 PT 18.6 H INR 1.6 H APTT 43.9 H Sodium 129 L Potassium 4.1 Chloride 85 L Carbon Dioxide 35 H Anion Gap 13 BUN 34 H Creatinine 1.26 Estim Creat Clear Calc 69.1 Estimated GFR 42 POC Glucose Random Glucose 106 Calcium 8.3 L Magnesium 2.2 Total Bilirubin 1.3 H Direct Bilirubin 0.6 H AST 25 ALT 18 Alkaline Phosphatase 150 H Troponin I High Sens B-Natriuretic Peptide Total Protein 6.7 Albumin 3.9 Stool Occult Blood Coronavirus (PCR) Blood Type Antibody Screen 07/22/20 07/22/20 07/22/20 14:21 14:21 14:21 WBC RBC Hgb Hct MCV MCH MCHC RDW Plt Count MPV Immature Gran % (Auto) Neut % (Auto) Lymph % (Auto) [place] % (Auto) Eos % (Auto) Baso % (Auto) Lymph # (Auto) [place] # (Auto) Eos # (Auto) Baso # (Auto) Abs Immat Gran (auto) Absolute Neuts (auto) Absolute Nucleated RBC Nucleated RBC % (auto) PT INR APTT Sodium Potassium Chloride Carbon Dioxide Anion Gap BUN Creatinine Estim Creat Clear Calc Estimated GFR POC Glucose Random Glucose Calcium Magnesium Total Bilirubin Direct Bilirubin AST ALT Alkaline Phosphatase Troponin I High Sens < 3.5 B-Natriuretic Peptide 511 H Total Protein Albumin Stool Occult Blood NEG Coronavirus (PCR) NEGATIVE Blood Type Antibody Screen 07/22/20 07/22/20 07/23/20 19:51 20:26 05:52 WBC 6.8 RBC 3.46 L Hgb 9.7 L Hct 28.9 L MCV 83.5 MCH 28.0 MCHC 33.6 RDW 15.0 Plt Count 185 MPV 9.2 L Immature Gran % (Auto) 1.0 H Neut % (Auto) 78.4 H Lymph % (Auto) 11.0 L [place] % (Auto) 8.9 Eos % (Auto) 0.4 Baso % (Auto) 0.3 Lymph # (Auto) 0.8 L [place] # (Auto) 0.6 Eos # (Auto) 0.0 Baso # (Auto) 0.0 Abs Immat Gran (auto) 0.07 H Absolute Neuts (auto) 5.4 Absolute Nucleated RBC 0.000 Nucleated RBC % (auto) 0.0 PT INR APTT Sodium Potassium Chloride Carbon Dioxide Anion Gap BUN Creatinine Estim Creat Clear Calc Estimated GFR POC Glucose 161 H 246 H Random Glucose Calcium Magnesium Total Bilirubin Direct Bilirubin AST ALT Alkaline Phosphatase Troponin I High Sens B-Natriuretic Peptide Total Protein Albumin Stool Occult Blood Coronavirus (PCR) Blood Type Antibody Screen 07/23/20 07/23/20 07/23/20 05:52 05:52 07:40 WBC RBC Hgb Hct MCV MCH MCHC RDW Plt Count MPV Immature Gran % (Auto) Neut % (Auto) Lymph % (Auto) [place] % (Auto) Eos % (Auto) Baso % (Auto) Lymph # (Auto) [place] # (Auto) Eos # (Auto) Baso # (Auto) Abs Immat Gran (auto) Absolute Neuts (auto) Absolute Nucleated RBC Nucleated RBC % (auto) PT INR APTT Sodium 131 L Potassium 3.9 Chloride 84 L Carbon Dioxide 37 H Anion Gap 14 BUN 37 H Creatinine 1.24 Estim Creat Clear Calc 68.8 Estimated GFR 43 POC Glucose 253 H Random Glucose 208 H D Calcium 8.1 L Magnesium 2.0 Total Bilirubin Direct Bilirubin AST ALT Alkaline Phosphatase Troponin I High Sens B-Natriuretic Peptide Total Protein Albumin Stool Occult Blood Coronavirus (PCR) Blood Type A Positive Antibody Screen NEGATIVE 07/23/20 11:17 WBC RBC Hgb Hct MCV MCH MCHC RDW Plt Count MPV Immature Gran % (Auto) Neut % (Auto) Lymph % (Auto) [place] % (Auto) Eos % (Auto) Baso % (Auto) Lymph # (Auto) [place] # (Auto) Eos # (Auto) Baso # (Auto) Abs Immat Gran (auto) Absolute Neuts (auto) Absolute Nucleated RBC Nucleated RBC % (auto) PT INR APTT Sodium Potassium Chloride Carbon Dioxide Anion Gap BUN Creatinine Estim Creat Clear Calc Estimated GFR POC Glucose 340 H Random Glucose Calcium Magnesium Total Bilirubin Direct Bilirubin AST ALT Alkaline Phosphatase Troponin I High Sens B-Natriuretic Peptide Total Protein Albumin Stool Occult Blood Coronavirus (PCR) Blood Type Antibody Screen Assessment and Plan (1) Morbid obesity due to excess calories: Status: Acute (2) Acute on chronic diastolic (congestive) heart failure: Status: Acute (3) Paroxysmal atrial fibrillation: Status: Acute (4) Type 2 diabetes mellitus with diabetic polyneuropathy: Status: Acute Pleasant 65-year-old female here for dyspnea and fatigue. She has background history of diastolic heart failure, coronary disease for which she had left circumflex artery PCI and paroxysmal atrial fibrillation. She has gained significant weight in the last year after receiving steroids for diffuse alveolar hemorrhage. It is difficult to know what is leading to her dyspnea right now because given her significant obesity she will be short of breath when she is moving. She has mild edema on lower extremities. I think we diurese her gently. She is on Bumex 2 mg twice a day along with metolazone 2.5 mg daily. I think this is a good dose for her. She should be looking into weight loss strategies because clearly she has gone downhill since she gained significant weight. Continue the Eliquis and Plavix. Thank you for allowing me to participate in the care of your patient. Please feel free to contact me if you have any questions.
[2020-07-23] MEDS: Clopidogrel Bisulfate 75 MG TABLET PO (14:54)
[2020-07-23 15:45] VITALS: BP 111/45; PULSE 66; RESP 18; TEMP 37; O2SAT 93
[2020-07-23 16:07] LABS: Glucose, Whole Blood 220 mg/dL (60-115)
[2020-07-23 19:44] VITALS: BP 126/49; PULSE 76; RESP 18; TEMP 36.8; O2SAT 94
[2020-07-23] MEDS: OLANZapine 7.5 MG TABLET 15 MG PO (21:02)
[2020-07-23 21:04] LABS: Glucose, Whole Blood 231 mg/dL (60-115)
[2020-07-24] VITALS (10 sets, daily range): BP systolic 109–143; BP diastolic 52–70; PULSE 61–79; RESP 18–20; TEMP 36.4–37; O2SAT 92–99; BMI 55.5
[2020-07-24] MEDS: traZODone HCL 100 MG TABLET 200 MG PO ×2 (00:02→20:43)
[2020-07-24] MEDS: Melatonin 3 MG TABLET PO (00:02)
[2020-07-24] MEDS: Fluticasone Propionate 100 MCG BLST.W.DEV 1 PUFF INHALE ×2 (00:14→07:31)
[2020-07-24] MEDS: Acetaminophen 325 MG TABLET 650 MG PO ×2 (01:11→18:11)
[2020-07-24] MEDS: Omeprazole 20 MG CAPSULE.DR PO (05:42)
[2020-07-24 07:31] LABS: Glucose, Whole Blood 341 mg/dL (60-115)
[2020-07-24 07:51] LABS: Anion Gap 10 (12-20); Blood Urea Nitrogen 44 mg/dL (9-16); Calcium 7.8 mg/dL (8.4-10.2); Carbon Dioxide 39 mmol/L (22-29); Chloride 82 mmol/L (96-108); Creatinine Clr Calc Pharmacy 54.4; Estimated Glomerular Filt Rate 33; Glucose Random 381 mg/dL (60-115); Potassium 3.8 mmol/l (3.3-5.1); Sodium 127 mmol/L (135-145)
[2020-07-24] MEDS: Bumetanide 1 MG/4 ML VIAL 2 MG IV (08:34)
[2020-07-24] MEDS: Insulin Lispro 100 UNIT/ML 3 ML VIAL SUBCUT ×4 (08:34→20:42)
[2020-07-24] MEDS: Spironolactone 25 MG TABLET 50 MG PO (08:34)
[2020-07-24] MEDS: Clopidogrel Bisulfate 75 MG TABLET PO (08:35)
[2020-07-24] MEDS: metOLazone 2.5 MG TABLET PO (08:35)
[2020-07-24] MEDS: Potassium Chloride ER 20 MEQ TAB.ER.PRT PO (08:35)
[2020-07-24] MEDS: amLODIPine Besylate 5 MG TABLET PO (08:35)
[2020-07-24] MEDS: Isosorbide Mononitrate 60 MG TAB.ER.24H PO (08:35)
[2020-07-24] MEDS: Metoprolol Tartrate 50 MG TABLET 75 MG PO ×2 (08:35→20:45)
[2020-07-24] MEDS: Atorvastatin Calcium 80 MG TABLET PO (08:35)
[2020-07-24] MEDS: Apixaban 5 MG TABLET PO ×2 (08:35→20:42)
[2020-07-24] MEDS: 0.9 % Sodium Chloride Flush 3 ML SYRINGE IVFLUSH ×3 (08:36→20:43)
[2020-07-24] MEDS: Sertraline HCL 100 MG TABLET 200 MG PO (08:36)
--- NOTE | 2020-07-24 10:43 | P.PNCA_ITS ---
Subjective Subjective Interval history: Sleeping but arousable. She is saying she is very tired and fatigued. Creatinine worse with diuresis. Diuretics were held this morning Review of Systems Review of Systems fatigue Yes all other systems are reviewed and are negative Constitutional: Reports weakness Reports weakness Physical Exam Vital Signs: Vital Signs Temp Pulse Resp BP Pulse Ox 07/24/20 08:35 64 110/52 L 07/24/20 08:34 64 110/52 L 07/24/20 07:52 97.7 F 64 18 110/52 L 92 07/24/20 04:00 98.2 F 75 20 110/55 L 93 07/24/20 00:00 98.1 F 79 20 120/61 95 07/23/20 19:44 98.2 F 76 18 126/49 L 94 07/23/20 15:45 98.6 F 66 18 111/45 L 93 Body Mass Index 55.5 GENERAL APPEARANCE: in no acute distress, morbidly obese. HEENT: unremarkable. HEAD: normocephalic, atraumatic. NECK/THYROID: cannot assess JVD because of body habitus but nothing obvious seen SKIN: no suspicious lesions, warm and dry. HEART: no murmurs, regular rate and rhythm, S1, S2 normal. LUNGS: coarse breath sounds bilaterally. ABDOMEN: normal, bowel sounds present, soft, nontender, nondistended. EXTREMITIES: 1+ edema bilaterally. PERIPHERAL PULSES: equal. NEUROLOGIC: nonfocal, alert and oriented. PSYCH: mood/affect full range. Results Labs and Meds Result diagrams: 07/23/20 05:52 07/24/20 06:54 Lab results: Laboratory Results - last 24 hr 07/23/20 07/23/20 07/23/20 11:17 15:58 20:52 Sodium Potassium Chloride Carbon Dioxide Anion Gap BUN Creatinine Estim Creat Clear Calc Estimated GFR POC Glucose 340 H 220 H 231 H Random Glucose Calcium 07/24/20 07/24/20 06:54 07:24 Sodium 127 L Potassium 3.8 Chloride 82 L Carbon Dioxide 39 H Anion Gap 10 L BUN 44 H Creatinine 1.55 H Estim Creat Clear Calc 54.4 Estimated GFR 33 POC Glucose 341 H Random Glucose 381 H* Calcium 7.8 L Progress Note: A&P Assessment and plan (1) Morbid obesity due to excess calories: Status: Acute (2) CAD (coronary artery disease): Problem details: KAREN to LCx for ACS,10/02. Status: Acute (3) Acute on chronic diastolic (congestive) heart failure: Status: Acute (4) Paroxysmal atrial fibrillation: Status: Acute Assessment and Plan: Pleasant 65-year-old female here for dyspnea and fatigue. She has background history of diastolic heart failure, coronary disease for which she had left circumflex artery PCI and paroxysmal atrial fibrillation. She has gained significant weight in the last year after receiving steroids for diffuse alveolar hemorrhage. It is difficult to know what is leading to her dyspnea right now because given her significant obesity she will be short of breath when she is moving. She has mild edema on lower extremities. her creatinine got worse with diuresis. I think we hold IV diuretics. Tomorrow she can be resumed back to her home diuretic dose of her creatinine is stable. In terms of her fatigue I think that is clearly due to sleep apnea. She was quite somnolent when I saw her this morning. She had asterixis which points toward potential elevated CO2 levels. In any case I think her issues are related to her significant weight gain. She should be looking into weight loss strategies because clearly she has gone downhill since she gained significant weight. Continue the Eliquis and Plavix. Thank you for allowing me to participate in the care of your patient. Please feel free to contact me if you have any questions. Fall Risk Details Current Medications: Current Medications Generic Name Dose Route Start Last Admin Trade Name Freq PRN Reason Stop Dose Admin Acetaminophen 650 mg 07/22/20 16:46 07/24/20 01:11 Acetaminophen 325 Mg Tablet PO 650 mg Q8H PRN Administration Pain (Scale Score 1-3) Amlodipine Besylate 5 mg 07/23/20 09:00 07/24/20 08:35 Amlodipine Besylate 5 Mg Tablet PO 5 mg DAILY ROCKY Administration Protocol Apixaban 5 mg 07/22/20 21:00 07/24/20 08:35 Apixaban 5 Mg Tablet PO 5 mg BID ROCKY Administration Atorvastatin Calcium 80 mg 07/23/20 09:00 07/24/20 08:35 Atorvastatin Calcium 80 Mg Tablet PO 80 mg DAILY ROCKY Administration Clopidogrel Bisulfate 75 mg 07/23/20 13:15 07/24/20 08:35 Clopidogrel Bisulfate 75 Mg Tablet PO 75 mg DAILY ROCKY Administration Fluticasone Propionate 1 puff 07/22/20 21:00 07/24/20 07:31 Fluticasone Propionate 100 Mcg Blst.W.Dev INHALE 1 puff BID ROCKY Administration Insulin Human Lispro 0 unit 07/23/20 21:00 07/24/20 08:34 Insulin Lispro 100 Unit/Ml 3 Ml Vial SUBCUT 8 unit QIDACHS [facility] Administration Protocol Isosorbide Mononitrate 60 mg 07/23/20 09:00 07/24/20 08:35 Isosorbide Mononitrate 60 Mg Tab.Er.24h PO 60 mg DAILY ROCKY Administration Protocol Melatonin 3 mg 07/22/20 16:37 07/24/20 00:02 Melatonin 3 Mg Tablet PO 3 mg BEDTIME PRN Administration Sleep Metolazone 2.5 mg 07/23/20 09:00 07/24/20 08:35 Metolazone 2.5 Mg Tablet PO 2.5 mg DAILY ROCKY Administration Metoprolol Tartrate 75 mg 07/22/20 21:00 07/24/20 08:35 Metoprolol Tartrate 50 Mg Tablet PO 75 mg BID ROCKY Administration Protocol Olanzapine 15 mg 07/22/20 21:00 07/23/20 21:02 Olanzapine 7.5 Mg Tablet PO 15 mg BEDTIME ROCKY Administration Omeprazole 20 mg 07/23/20 06:30 07/24/20 05:42 Omeprazole 20 Mg Capsule. PO 20 mg DAILY@0630 [facility] Administration Pharmacy Consult 1 each 07/22/20 12:54 Consult Rx Perform Med Rec MISCELLANE ONCE PRN Consult order Potassium Chloride 20 meq 07/23/20 09:00 07/24/20 08:35 Potassium Chloride Er 20 Meq Tab.Er.Prt PO 20 meq DAILY ROCKY Administration Sertraline HCl 200 mg 07/23/20 09:00 07/24/20 08:36 Sertraline Hcl 100 Mg Tablet PO 200 mg DAILY ROCKY Administration Sodium Chloride 3 ml 07/23/20 00:00 07/24/20 08:36 0.9 % Sodium Chloride Flush 3 Ml Syringe IVFLUSH 3 ml QSHIFT [facility]Y Administration Spironolactone 50 mg 07/23/20 09:00 07/24/20 08:34 Spironolactone 25 Mg Tablet PO 50 mg DAILY ROCKY Administration Protocol Trazodone HCl 200 mg 07/22/20 16:37 07/24/20 00:02 Trazodone Hcl 100 Mg Tablet PO 200 mg BEDTIME PRN Administration Sleep Time Spent With Patient Time: Total time spent is greater than 50% in coordination of care (as documented) at patient's floor/unit and/or counseling patient: Time with patient: less than 15 minutes
[2020-07-24 11:57] LABS: Glucose, Whole Blood 312 mg/dL (60-115)
--- NOTE | 2020-07-24 14:58 | HO.PM.IMPN ---
Subjective Subjective Interval History: patient seen and examined at bedside patient still has significant edema , feeling tired Physical Exam Vital Signs: Vital Signs: Last Vital Signs Temp 97.6 F 07/24/20 11:20 Pulse 78 07/24/20 11:20 Resp 18 07/24/20 11:20 BP 143/68 H 07/24/20 11:20 Pulse Ox 99 07/24/20 11:20 Body Mass Index 55.5 General: no acute distress HEENT: atraumatic Neck: normal to visual inspection CVS: S1, S2, RRR, 3+ edema Resp: basilar rales Chest: non tender GI: soft, non tender, non distended : no CVA tenderness Skin: no rashes Extremities: no edema Neuro: Oriented X3, grossly intact Psych: cooperative, Objective Data Current Medications Generic Name Dose Route Start Last Admin Trade Name Freq PRN Reason Stop Dose Admin Acetaminophen 650 mg 07/22/20 16:46 07/24/20 01:11 Acetaminophen 325 Mg Tablet PO 650 mg Q8H PRN Administration Pain (Scale Score 1-3) Amlodipine Besylate 5 mg 07/23/20 09:00 07/24/20 08:35 Amlodipine Besylate 5 Mg Tablet PO 5 mg DAILY [facility] Administration Protocol Apixaban 5 mg 07/22/20 21:00 07/24/20 08:35 Apixaban 5 Mg Tablet PO 5 mg BID ROCKY Administration Atorvastatin Calcium 80 mg 07/23/20 09:00 07/24/20 08:35 Atorvastatin Calcium 80 Mg Tablet PO 80 mg DAILY ROCKY Administration Clopidogrel Bisulfate 75 mg 07/23/20 13:15 07/24/20 08:35 Clopidogrel Bisulfate 75 Mg Tablet PO 75 mg DAILY [facility]Y Administration Fluticasone Propionate 1 puff 07/22/20 21:00 07/24/20 07:31 Fluticasone Propionate 100 Mcg Blst.W.Dev INHALE 1 puff BID ROCKY Administration Insulin Human Lispro 0 unit 07/23/20 21:00 07/24/20 12:50 Insulin Lispro 100 Unit/Ml 3 Ml Vial SUBCUT 8 unit QIDACHS [facility] Administration Protocol Isosorbide Mononitrate 60 mg 07/23/20 09:00 07/24/20 08:35 Isosorbide Mononitrate 60 Mg Tab.Er.24h PO 60 mg DAILY [facility]Y Administration Protocol Melatonin 3 mg 07/22/20 16:37 07/24/20 00:02 Melatonin 3 Mg Tablet PO 3 mg BEDTIME PRN Administration Sleep Metolazone 2.5 mg 07/23/20 09:00 07/24/20 08:35 Metolazone 2.5 Mg Tablet PO 2.5 mg DAILY ROCKY Administration Metoprolol Tartrate 75 mg 07/22/20 21:00 07/24/20 08:35 Metoprolol Tartrate 50 Mg Tablet PO 75 mg BID ROCKY Administration Protocol Olanzapine 15 mg 07/22/20 21:00 07/23/20 21:02 Olanzapine 7.5 Mg Tablet PO 15 mg BEDTIME ROCKY Administration Omeprazole 20 mg 07/23/20 06:30 07/24/20 05:42 Omeprazole 20 Mg Capsule.Dr PO 20 mg DAILY@0630 [facility] Administration Pharmacy Consult 1 each 07/22/20 12:54 Consult Rx Perform Med Rec MISCELLANE ONCE PRN Consult order Potassium Chloride 20 meq 07/23/20 09:00 07/24/20 08:35 Potassium Chloride Er 20 Meq Tab.Er.Prt PO 20 meq DAILY ROCKY Administration Sertraline HCl 200 mg 07/23/20 09:00 07/24/20 08:36 Sertraline Hcl 100 Mg Tablet PO 200 mg DAILY ROCKY Administration Sodium Chloride 3 ml 07/23/20 00:00 07/24/20 08:36 0.9 % Sodium Chloride Flush 3 Ml Syringe IVFLUSH 3 ml QSHIFT [facility] Administration Spironolactone 50 mg 07/23/20 09:00 07/24/20 08:34 Spironolactone 25 Mg Tablet PO 50 mg DAILY ROCKY Administration Protocol Trazodone HCl 200 mg 07/22/20 16:37 07/24/20 00:02 Trazodone Hcl 100 Mg Tablet PO 200 mg BEDTIME PRN Administration Sleep Labs CBC & Chem 7: 07/23/20 05:52 07/24/20 06:54 Labs: Laboratory Results - last 24 hr 07/23/20 07/23/20 07/24/20 15:58 20:52 06:54 Sodium 127 L Potassium 3.8 Chloride 82 L Carbon Dioxide 39 H Anion Gap 10 L BUN 44 H Creatinine 1.55 H Estim Creat Clear Calc 54.4 Estimated GFR 33 POC Glucose 220 H 231 H Random Glucose 381 H* Calcium 7.8 L 07/24/20 07/24/20 07:24 11:52 Sodium Potassium Chloride Carbon Dioxide Anion Gap BUN Creatinine Estim Creat Clear Calc Estimated GFR POC Glucose 341 H 312 H Random Glucose Calcium Assessment and Plan (1) Paroxysmal atrial fibrillation: Status: Acute (2) Mitral regurgitation: Status: Acute (3) Type 2 diabetes mellitus with diabetic polyneuropathy: Status: Acute (4) Hyperlipidemia LDL goal <70: Status: Acute (5) Essential hypertension: Status: Acute (6) Degenerative arthritis of knee, bilateral: Status: Acute (7) Acute on chronic diastolic (congestive) heart failure: Status: Acute (8) CAD (coronary artery disease): Problem details: KAREN to LCx for ACS,10/02. Status: Acute (9) Morbid obesity due to excess calories: Status: Acute Assessment and Plan: 65F presented with weight gain and fatigue Acute on chronic diastolic chf complicated by morbid obesity Still significant edema slowly improving continue IV bumex monitor intake and output monitor daily weight cardiology following continue Lopressor and Aldactone creatinine trended up to 1.5 monitor kidney function closely pafib continue eliquis, continue metoprolol DM continue sliding scale inuslin monitor blood glucose HTN continue aldactone, metoprolol, amlodipine COPD stable Chronic Anemia no active bleed monitor CBC no need for transfusion acute on chronic kidney injury creatinine 1.5 today monitor kidney function closely while on IV diuresis avoid nephrotoxins CAD continue eliquis, statin DVT prophylaxis Eliquis
[2020-07-24 16:07] LABS: Glucose, Whole Blood 313 mg/dL (60-115)
[2020-07-24 20:37] LABS: Glucose, Whole Blood 258 mg/dL (60-115)
[2020-07-24] MEDS: OLANZapine 7.5 MG TABLET 15 MG PO (20:42)
[2020-07-24] MEDS: traMADoL HCL 50 MG TABLET PO (22:32)
[2020-07-25 04:00] VITALS: BP 130/61; PULSE 68; RESP 20; TEMP 36.7; O2SAT 96
[2020-07-25] MEDS: Omeprazole 20 MG CAPSULE.DR PO (04:51)
[2020-07-25] MEDS: Acetaminophen 325 MG TABLET 650 MG PO (04:51)
[2020-07-25 05:45] VITALS: BMI 55.9
[2020-07-25 06:52] LABS: Anion Gap 15 (12-20); Blood Urea Nitrogen 42 mg/dL (9-16); Calcium 7.8 mg/dL (8.4-10.2); Carbon Dioxide 33 mmol/L (22-29); Chloride 82 mmol/L (96-108); Creatinine Clr Calc Pharmacy 61.5; Estimated Glomerular Filt Rate 38; Potassium 3.9 mmol/l (3.3-5.1); Sodium 126 mmol/L (135-145)
[2020-07-25 06:54] LABS: Glucose Random 405 mg/dL (60-115)
[2020-07-25 07:32] LABS: Glucose, Whole Blood 394 mg/dL (60-115)
[2020-07-25] MEDS: Fluticasone Propionate 100 MCG BLST.W.DEV 1 PUFF INHALE (07:39)
[2020-07-25 08:00] VITALS: BP 110/82; PULSE 70; RESP 20; TEMP 37; O2SAT 91
[2020-07-25] MEDS: amLODIPine Besylate 5 MG TABLET PO (09:06)
[2020-07-25] MEDS: Atorvastatin Calcium 80 MG TABLET PO (09:06)
[2020-07-25] MEDS: Apixaban 5 MG TABLET PO (09:06)
[2020-07-25] MEDS: Potassium Chloride ER 20 MEQ TAB.ER.PRT PO (09:07)
[2020-07-25] MEDS: Metoprolol Tartrate 50 MG TABLET 75 MG PO (09:07)
[2020-07-25] MEDS: Isosorbide Mononitrate 60 MG TAB.ER.24H PO (09:07)
[2020-07-25] MEDS: Clopidogrel Bisulfate 75 MG TABLET PO (09:07)
[2020-07-25] MEDS: Sertraline HCL 100 MG TABLET 200 MG PO (09:08)
[2020-07-25] MEDS: Spironolactone 25 MG TABLET 50 MG PO (09:08)
[2020-07-25] MEDS: Insulin Lispro 100 UNIT/ML 3 ML VIAL SUBCUT ×3 (09:14→12:25)
[2020-07-25] MEDS: 0.9 % Sodium Chloride Flush 3 ML SYRINGE IVFLUSH (09:15)
[2020-07-25] MEDS: Insulin Glargine,Hum.rec.anlog 100 UNIT/ML 10 ML VIAL 20 UNIT SUBCUT (09:15)
[2020-07-25 09:51] LABS: Pt Ventilation O2% ROOM AIR
[2020-07-25 09:54] LABS: ABG PCO2 55 mmhg (32-45); pH ABG 7.43 (7.35-7.45)
[2020-07-25 09:55] LABS: Base Excess ABG 9.6; HCO3 ABG 36 mmol/l (22-26); Oxygen Saturation ABG 88.3 %; PO2 ABG 55 mmhg (83-108)
[2020-07-25 11:26] VITALS: BP 127/57; PULSE 62; RESP 20; TEMP 37.1; O2SAT 90
[2020-07-25 12:01] LABS: Glucose, Whole Blood 347 mg/dL (60-115)
--- NOTE | 2020-07-25 12:04 | PM.PNCARD ---
Subjective Subjective Interval history: patient seen and examined at bedside. creatinine worsened with the diuresis. her diuretics were held yesterday and creatinine is better this morning. She is saying she is feeling better. Review of Systems Review of Systems no chest pain Yes all other systems are reviewed and are negative Constitutional: Reports weakness Reports weakness Physical Exam Vital Signs: Last Vital Signs Temp 98.7 F 07/25/20 11:26 Pulse 62 07/25/20 11:26 Resp 20 07/25/20 11:26 BP 127/57 L 07/25/20 11:26 Pulse Ox 90 L 07/25/20 11:26 Body Mass Index 55.9 GENERAL APPEARANCE: in no acute distress, morbidly obese. HEENT: unremarkable. HEAD: normocephalic, atraumatic. NECK/THYROID: cannot assess JVD because of body habitus but nothing obvious seen SKIN: no suspicious lesions, warm and dry. HEART: no murmurs, regular rate and rhythm, S1, S2 normal. LUNGS: coarse breath sounds bilaterally. ABDOMEN: normal, bowel sounds present, soft, nontender, nondistended. EXTREMITIES: 1+ edema bilaterally. PERIPHERAL PULSES: equal. NEUROLOGIC: nonfocal, alert and oriented. PSYCH: mood/affect full range. Results Labs and Meds Result diagrams: 07/23/20 05:52 07/25/20 05:56 Lab results: Laboratory Results - last 24 hr 07/24/20 07/24/20 07/25/20 16:04 20:30 05:56 ABG pH ABG pCO2 ABG pO2 ABG HCO3 ABG O2 Saturation ABG Base Excess Oxygen Given Sodium 126 L Potassium 3.9 Chloride 82 L Carbon Dioxide 33 H Anion Gap 15 BUN 42 H Creatinine 1.38 Estim Creat Clear Calc 61.5 Estimated GFR 38 POC Glucose 313 H 258 H Random Glucose 405 H* Calcium 7.8 L 07/25/20 07/25/20 07/25/20 07:10 09:37 11:42 ABG pH 7.43 ABG pCO2 55 H ABG pO2 55 L ABG HCO3 36 H ABG O2 Saturation 88.3 ABG Base Excess 9.6 Oxygen Given ROOM AIR Sodium Potassium Chloride Carbon Dioxide Anion Gap BUN Creatinine Estim Creat Clear Calc Estimated GFR POC Glucose 394 H* 347 H Random Glucose Calcium Progress Note: A&P Assessment and plan (1) Morbid obesity due to excess calories: Status: Acute (2) CAD (coronary artery disease): Problem details: KAREN to LCx for ACS,10/02. Status: Acute (3) Acute on chronic diastolic (congestive) heart failure: Status: Acute (4) Paroxysmal atrial fibrillation: Status: Acute Assessment and Plan: Pleasant 65-year-old female here for dyspnea and fatigue. She has background history of diastolic heart failure, coronary disease for which she had left circumflex artery PCI and paroxysmal atrial fibrillation. She has gained significant weight in the last year after receiving steroids for diffuse alveolar hemorrhage. It is difficult to know what is leading to her dyspnea right now because given her significant obesity she will be short of breath when she is moving. She has mild edema on lower extremities. her creatinine got worse with diuresis and has improved back to normal with holding diuretics. I think she does not have significant intravascular volume overload. She has peripheral edema and with diuretics her creatinine is worsening. I think we resume her oral diuretics. She is feeling better right now. I think her main issues are weight related and she needs weight loss and referral for sleep study to rule out obstructive sleep apnea as cause for her fatigue. Signing off. Continue the Eliquis and Plavix. Thank you for allowing me to participate in the care of your patient. Please feel free to contact me if you have any questions. Fall Risk Details Current Medications: Current Medications Generic Name Dose Route Start Last Admin Trade Name Freq PRN Reason Stop Dose Admin Acetaminophen 650 mg 07/22/20 16:46 07/25/20 04:51 Acetaminophen 325 Mg Tablet PO 650 mg Q8H PRN Administration Pain (Scale Score 1-3) Amlodipine Besylate 5 mg 07/23/20 09:00 07/25/20 09:06 Amlodipine Besylate 5 Mg Tablet PO 5 mg DAILY ROCKY Administration Protocol Apixaban 5 mg 07/22/20 21:00 07/25/20 09:06 Apixaban 5 Mg Tablet PO 5 mg BID ROCKY Administration Atorvastatin Calcium 80 mg 07/23/20 09:00 07/25/20 09:06 Atorvastatin Calcium 80 Mg Tablet PO 80 mg DAILY ROCKY Administration Clopidogrel Bisulfate 75 mg 07/23/20 13:15 07/25/20 09:07 Clopidogrel Bisulfate 75 Mg Tablet PO 75 mg DAILY ROCKY Administration Fluticasone Propionate 1 puff 07/22/20 21:00 07/25/20 09:58 Fluticasone Propionate 100 Mcg Blst.W.Dev INHALE Not Given BID [facility] Insulin Glargine 20 unit 07/25/20 09:00 07/25/20 09:15 Insulin Glargine,Hum.Rec.Anlog 100 Unit/Ml 10 Ml Vial SUBCUT 1 unit DAILY ROCKY Administration Insulin Human Lispro 0 unit 07/23/20 21:00 07/25/20 09:14 Insulin Lispro 100 Unit/Ml 3 Ml Vial SUBCUT 10 unit QIDACHS [facility] Administration Protocol Isosorbide Mononitrate 60 mg 07/23/20 09:00 07/25/20 09:07 Isosorbide Mononitrate 60 Mg Tab.Er.24h PO 60 mg DAILY ROCKY Administration Protocol Melatonin 3 mg 07/22/20 16:37 07/24/20 00:02 Melatonin 3 Mg Tablet PO 3 mg BEDTIME PRN Administration Sleep Metolazone 2.5 mg 07/23/20 09:00 07/24/20 08:35 Metolazone 2.5 Mg Tablet PO 2.5 mg DAILY ROCKY Administration Metoprolol Tartrate 75 mg 07/22/20 21:00 07/25/20 09:07 Metoprolol Tartrate 50 Mg Tablet PO 75 mg BID [facility] Administration Protocol Olanzapine 15 mg 07/22/20 21:00 07/24/20 20:42 Olanzapine 7.5 Mg Tablet PO 15 mg BEDTIME ROCKY Administration Omeprazole 20 mg 07/23/20 06:30 07/25/20 04:51 Omeprazole 20 Mg Capsule.Dr PO 20 mg DAILY@0630 [facility] Administration Pharmacy Consult 1 each 07/22/20 12:54 Consult Rx Perform Med Rec MISCELLANE ONCE PRN Consult order Potassium Chloride 20 meq 07/23/20 09:00 07/25/20 09:07 Potassium Chloride Er 20 Meq Tab.Er.Prt PO 20 meq DAILY ROCKY Administration Sertraline HCl 200 mg 07/23/20 09:00 07/25/20 09:08 Sertraline Hcl 100 Mg Tablet PO 200 mg DAILY ROCKY Administration Sodium Chloride 3 ml 07/23/20 00:00 07/25/20 09:15 0.9 % Sodium Chloride Flush 3 Ml Syringe IVFLUSH 3 ml QSHIFT ROCKY Administration Spironolactone 50 mg 07/23/20 09:00 07/25/20 09:08 Spironolactone 25 Mg Tablet PO 50 mg DAILY ROCKY Administration Protocol Trazodone HCl 200 mg 07/22/20 16:37 07/24/20 20:43 Trazodone Hcl 100 Mg Tablet PO 200 mg BEDTIME PRN Administration Sleep Time Spent With Patient Time: Total time spent is greater than 50% in coordination of care (as documented) at patient's floor/unit and/or counseling patient: Time with patient: less than 15 minutes
--- NOTE | 2020-07-25 12:07 | P.DS_ITS ---
DS: Providers Provider Date of admission: 07/22/20 16:44 Primary care physician: Unknown Physician Consults: 07/22/20 17:31 Consult to Cardiology Routine Consulting Provider: Vladimir Alas Reason for consultation: chf DS: Diagnosis Discharge Diagnosis (1) Paroxysmal atrial fibrillation: Status: Acute (2) Mitral regurgitation: Status: Acute (3) Type 2 diabetes mellitus with diabetic polyneuropathy: Status: Acute (4) Hyperlipidemia LDL goal <70: Status: Acute (5) Essential hypertension: Status: Acute (6) Degenerative arthritis of knee, bilateral: Status: Acute (7) Acute on chronic diastolic (congestive) heart failure: Status: Acute (8) CAD (coronary artery disease): Status: Acute Problem details: KAREN to LCx for ACS,10/02. (9) Morbid obesity due to excess calories: Status: Acute DS: Summary Hospital Course Hospital Course: 65-year-old female morbidly obese admitted with acute on chronic diastolic heart failure patient was started on IV Bumex and metolazone, cardiology was consulted, patient was diuresed well, patient was in negative balance, patient's kidney functions worsens, diuretics were held per Cardiology, Pavel I resolved after holding Bumex, patient was also counseled on weight loss, patient will follow-up pulmonology for sleep studies for possible sleep apnea, patient was stable cleared by Cardiology discharged on p.o. Bumex and metolazone patient will follow up cardiology as outpatient Time Spent with Patient Time attestation: Total time spent providing and/or coordinating discharge services: Physical Exam Vital Signs: Vital Signs: Last Vital Signs Temp 98.7 F 07/25/20 11:26 Pulse 62 07/25/20 11:26 Resp 20 07/25/20 11:26 BP 127/57 L 07/25/20 11:26 Pulse Ox 90 L 07/25/20 11:26 Body Mass Index 55.9 General: no acute distress HEENT: atraumatic Neck: normal to visual inspection CVS: S1, S2, edema improving Resp: basilar rales Chest: non tender GI: soft, non tender, non distended : no CVA tenderness Skin: no rashes Extremities: no edema Neuro: Oriented X3, grossly intact Psych: cooperative, DS: Data Data Completed and Pending Labs on day of discharge: 07/22/20 12:54 ECG 12 lead EKG Stat EKG Documentation DIRECTED Furosemide [Lasix] 40 mg IVPUSH ONCE ONE 07/22/20 13:15 XR chest 1V Stat 07/22/20 14:21 B Type Natriuretic Peptide Stat Basic Metabolic Panel Stat Complete Blood Count Auto Diff Stat Liver Panel Stat Magnesium Stat OBSX1 Stat Partial Thromboplastin Time Stat Prothrombin Time INR Stat SARS COV2 PCR INHOUSE Stat Troponin-I High Sensitivity Stat 07/22/20 16:39 Transfer Order Routine 07/22/20 Dinner Diabetic Diet 07/22/20 19:51 Glucose, Whole Blood Routine 07/22/20 20:26 Glucose, Whole Blood Routine 07/22/20 21:00 Bumetanide [Bumex] 2 mg IV BID Insulin Lispro [Humalog] See Protocol SUBCUT QIDACHS 07/23/20 05:52 Type and Screen Stat Basic Metabolic Panel DAILY@0600 Complete Blood Count Auto Diff DAILY@0600 Magnesium Routine 07/23/20 06:30 Omeprazole [PriLOSEC] 20 mg PO DAILY@0630 07/23/20 07:40 Glucose, Whole Blood Routine 07/23/20 11:17 Glucose, Whole Blood Routine 07/23/20 15:58 Glucose, Whole Blood Routine 07/23/20 20:52 Glucose, Whole Blood Routine 07/24/20 06:54 Basic Metabolic Panel DAILY@0600 07/24/20 07:24 Glucose, Whole Blood Routine 07/24/20 11:52 Glucose, Whole Blood Routine 07/24/20 16:04 Glucose, Whole Blood Routine 07/24/20 20:30 Glucose, Whole Blood Routine 07/24/20 22:17 traMADoL HCL [Ultram] 50 mg PO ONCE ONE 07/25/20 05:56 Basic Metabolic Panel DAILY@0600 07/25/20 07:10 Glucose, Whole Blood Routine 07/25/20 08:59 Insulin Lispro [Humalog] 5 unit SUBCUT ONCE ONE 07/25/20 09:37 Arterial Blood Gas Routine 07/25/20 11:42 Glucose, Whole Blood Routine Laboratory Last Values WBC 6.8 X10*3/uL (4.8-10.8) 07/23/20 05:52 RBC 3.46 X10*6/uL (4.20-5.50) L 07/23/20 05:52 Hgb 9.7 g/dl (12.0-16.0) L 07/23/20 05:52 Hct 28.9 % (37-47) L 07/23/20 05:52 MCV 83.5 fL (80-98) 07/23/20 05:52 MCH 28.0 pg (27.0-33.0) 07/23/20 05:52 MCHC 33.6 g/dl (31.0-35.0) 07/23/20 05:52 RDW 15.0 % (11.0-16.0) 07/23/20 05:52 Plt Count 185 X10*3/uL (160-400) 07/23/20 05:52 MPV 9.2 fL (9.4-12.3) L 07/23/20 05:52 Immature Gran % (Auto) 1.0 % (0.0-0.4) H 07/23/20 05:52 Neut % (Auto) 78.4 % (45-73) H 07/23/20 05:52 Lymph % (Auto) 11.0 % (20-40) L 07/23/20 05:52 [place] % (Auto) 8.9 % (2-11) 07/23/20 05:52 Eos % (Auto) 0.4 % (0-4) 07/23/20 05:52 Baso % (Auto) 0.3 % (0-2) 07/23/20 05:52 Lymph # (Auto) 0.8 X10*3/uL (1.2-4.9) L 07/23/20 05:52 [place] # (Auto) 0.6 X10*3/uL (0.1-1.2) 07/23/20 05:52 Eos # (Auto) 0.0 X10*3/uL (0.0-0.4) 07/23/20 05:52 Baso # (Auto) 0.0 X10*3/uL (0.0-0.2) 07/23/20 05:52 Abs Immat Gran (auto) 0.07 X10*3/uL (0.00-0.03) H 07/23/20 05:52 Absolute Neuts (auto) 5.4 X10*3/uL (2.0-8.3) 07/23/20 05:52 Absolute Nucleated RBC 0.000 X10*3/uL (0.0-0.012) 07/23/20 05:52 Nucleated RBC % (auto) 0.0 /100WBC (0.0-0.2) 07/23/20 05:52 PT 18.6 SEC (10.8-13.0) H 07/22/20 14:21 INR 1.6 (0.9-1.1) H 07/22/20 14:21 APTT 43.9 SEC (24.1-38.0) H 07/22/20 14:21 ABG pH 7.43 (7.35-7.45) 07/25/20 09:37 ABG pCO2 55 mmhg (32-45) H 07/25/20 09:37 ABG pO2 55 mmhg (83-108) L 07/25/20 09:37 ABG HCO3 36 mmol/l (22-26) H 07/25/20 09:37 ABG O2 Saturation 88.3 % 07/25/20 09:37 ABG Base Excess 9.6 07/25/20 09:37 Oxygen Given ROOM AIR 07/25/20 09:37 Sodium 126 mmol/L (135-145) L 07/25/20 05:56 Potassium 3.9 mmol/l (3.3-5.1) 07/25/20 05:56 Chloride 82 mmol/L (96-108) L 07/25/20 05:56 Carbon Dioxide 33 mmol/L (22-29) H 07/25/20 05:56 Anion Gap 15 (12-20) 07/25/20 05:56 BUN 42 mg/dL (9-16) H 07/25/20 05:56 Creatinine 1.38 mg/dL (0.5-1.4) 07/25/20 05:56 Estim Creat Clear Calc 61.5 07/25/20 05:56 Estimated GFR 38 07/25/20 05:56 POC Glucose 347 mg/dL (60-115) H 07/25/20 11:42 Random Glucose 405 mg/dL (60-115) H* 07/25/20 05:56 Calcium 7.8 mg/dL (8.4-10.2) L 07/25/20 05:56 Magnesium 2.0 mg/dL (1.6-2.6) 07/23/20 05:52 Total Bilirubin 1.3 mg/dL (0.0-1.0) H 07/22/20 14:21 Direct Bilirubin 0.6 mg/dL (0.0-0.5) H 07/22/20 14:21 AST 25 U/L (5-31) 07/22/20 14:21 ALT 18 U/L (0-31) 07/22/20 14:21 Alkaline Phosphatase 150 U/L (39-117) H 07/22/20 14:21 Troponin I High Sens < 3.5 ng/L (<3.5-17.0) 07/22/20 14:21 B-Natriuretic Peptide 511 pg/mL (<100) H 07/22/20 14:21 Total Protein 6.7 g/dL (6.5-8.0) 07/22/20 14:21 Albumin 3.9 g/dL (3.5-5.0) 07/22/20 14:21 Stool Occult Blood NEG (NEG) 07/22/20 14:21 Coronavirus (PCR) NEGATIVE (Negative) 07/22/20 14:21 Blood Type A Positive 07/23/20 05:52 Antibody Screen NEGATIVE 07/23/20 05:52 Discharge Plan Discharge Anticipated Discharge Date/Time: 07/25/20 11:43 Patient Disposition: Home Health Service Referrals: [facility] [Outside] Mily Waite MD [Physician] - 1 Week (07/31/20 9:30am with Dr. Johnson. Please call and reschedule if you can't keep this appointment) Discharge Medications: Continued metolazone 2.5 mg Tablet 2.5 mg PO DAILY RF: 0 atorvastatin 80 mg Tablet 80 mg PO DAILY RF: 0 bumetanide 2 mg Tablet 2 mg PO BID RF: 0 albuterol sulfate 2.5 mg /3 mL (0.083 %) Solution For Nebulization 2.5 mg INHALATION Q4H PRN (Reason: Shortness Of Breath) RF: 0 sertraline 100 mg Tablet 200 mg PO DAILY RF: 0 melatonin 3 mg Tablet 3 mg PO BEDTIME PRN (Reason: Sleep) RF: 0 amlodipine [Norvasc] 5 mg Tablet 5 mg PO DAILY RF: 0 acetaminophen 650 mg Tablet Extended Release 650 mg PO Q8H PRN (Reason: Pain (Scale Score 1-3)) RF: 0 pantoprazole [Protonix] 20 mg Tablet,Delayed Release (Dr/Ec) 20 mg PO DAILY RF: 0 isosorbide mononitrate 60 mg Tablet Extended Release 24 Hr 60 mg PO DAILY RF: 0 potassium chloride [Klor-Con M20] 20 mEq Tablet,Er Particles/Crystals 20 meq PO DAILY RF: 0 trazodone 100 mg Tablet 200 mg PO BEDTIME PRN (Reason: Sleep) RF: 0 metoprolol tartrate 50 mg Tablet 75 mg PO BID RF: 0 olanzapine [Zyprexa] 15 mg Tablet 15 mg PO BEDTIME RF: 0 Flovent HFA 110 mcg/actuation Hfa Aerosol Inhaler 1 puff INHALATION BID RF: 0 spironolactone 50 mg Tablet 50 mg PO DAILY RF: 0 insulin aspart U-100 [Novolog Flexpen U-100 Insulin] 100 unit/mL (3 mL) Insulin Pen See Protocol unit SUBCUT TID RF: 0 metformin 500 mg Tablet Extended Release 24hr 1,000 mg PO DAILY RF: 0 Eliquis 5 mg Tablet 5 mg PO BID RF: 0 Incruse Ellipta 62.5 mcg/actuation Blister With Device 1 inh INHALATION DAILY RF: 0 Discontinued furosemide [Lasix] 40 mg Tablet 40 mg PO DAILY RF: 0 Discharge Orders: Discharge Order (Routine); Ordered 07/25/20 Ordered By: Myles Abernathy Diet: advance to your usual diet Activity on Discharge: As tolerated Visit Report Forms: Patient Portal Discharge page Care Plan Goals: prevent chf exacerbation Health Concerns: morbid obesity concern for sleep apnea Plan of Treatment: resume deacon follow up pulmonology as outpatient for sleep apnea evualation
[2020-07-25 12:13] LABS: Glucose, Whole Blood 382 mg/dL (60-115)
== END 2020-07-25 17:32 | disposition home health service (06) | DRG 292 ==
LOC: HO.ED 15:47 → HO.IMC 16:56
PROVIDERS: Admitting Provider Internal Medicine; Emergency Provider Emergency Medicine; Visit Provider Internal Medicine
DX: I11.0 Hypertensive heart disease with heart failure (principal); Z68.43 Body mass index [BMI] 50.0-59.9, adult; I48.0 Paroxysmal atrial fibrillation; I50.33 Acute on chronic diastolic (congestive) heart failure; I25.10 Atherosclerotic heart disease of native coronary artery without angina pectoris; E66.01 Morbid (severe) obesity due to excess calories; E78.5 Hyperlipidemia, unspecified; J44.9 Chronic obstructive pulmonary disease, unspecified; E11.42 Type 2 diabetes mellitus with diabetic polyneuropathy; I34.0 Nonrheumatic mitral (valve) insufficiency; M17.0 Bilateral primary osteoarthritis of knee; Z20.828 Contact with and (suspected) exposure to other viral communicable diseases; Z79.4 Long term (current) use of insulin; Z79.01 Long term (current) use of anticoagulants; Z79.51 Long term (current) use of inhaled steroids; Z79.899 Other long term (current) drug therapy
CPT/HCPCS: 36415; 36600; 71045; 80048; 80076; 82272; 82803; 82947; 83735; 83880; 84484; 85025; 85610; 85730; 86850; 86901; 93005; 94640; 96374; 99285; J1940; U0003

== ENCOUNTER 2020-07-28 11:19 | Inpatient (IN) | payer MEDICARE, SELFPAY ==
[2020-07-28 11:24] VITALS: BP 127/80; BP 129/58; PULSE 63; PULSE 72; RESP 16; TEMP 36.7; O2SAT 98; O2SAT 99; BMI 65.9
--- NOTE | 2020-07-28 12:00 | ED.SOB ---
HPI - SOB/Dyspnea General Chief Complaint: Dyspnea Stated Complaint: sob Time Seen by Provider: 07/28/20 12:00 Source: patient, EMS and old records reviewed Mode of arrival: EMS Limitations: no limitations History of Present Illness HPI Narrative: ran out of her albuterol for her neb machine the last 1.5 days MD elicited complaint: shortness of breath Pertinent past history: COPD, asthma and congestive heart failure Onset (ago): day(s) (3) Context: recent illness Timing: constant and progressively worsening Severity: moderate Exacerbating factors: exertion, movement and coughing Relieving factors: oxygen, rest and bronchodilators Known history of: COPD, asthma and congestive heart failure Associated symptoms: cough, wheezing and sputum production Treatment prior to arrival: oxygen Related Data Home oxygen amount: none Home Medications Medication Instructions Recorded Confirmed Eliquis 5 mg PO BID 07/22/20 07/28/20 Flovent HFA 1 puff INHALATION BID 07/22/20 07/28/20 Incruse Ellipta 1 inh INHALATION DAILY 07/22/20 07/28/20 acetaminophen 650 mg PO Q8H PRN 07/22/20 07/28/20 albuterol sulfate 2.5 mg INHALATION Q4H PRN 07/22/20 07/28/20 amlodipine [Norvasc] 5 mg PO DAILY 07/22/20 07/28/20 atorvastatin 80 mg PO DAILY 07/22/20 07/28/20 bumetanide 2 mg PO BID 07/22/20 07/28/20 insulin aspart U-100 [Novolog See Protocol SUBCUT TID 07/22/20 07/28/20 Flexpen U-100 Insulin] isosorbide mononitrate 60 mg PO DAILY 07/22/20 07/28/20 melatonin 3 mg PO BEDTIME PRN 07/22/20 07/28/20 metformin 1,000 mg PO DAILY 07/22/20 07/28/20 metolazone 2.5 mg PO DAILY 07/22/20 07/28/20 metoprolol tartrate 75 mg PO BID 07/22/20 07/28/20 olanzapine [Zyprexa] 15 mg PO BEDTIME 07/22/20 07/28/20 pantoprazole [Protonix] 20 mg PO DAILY 07/22/20 07/28/20 potassium chloride [Klor-Con M20] 20 meq PO DAILY 07/22/20 07/28/20 sertraline 200 mg PO DAILY 07/22/20 07/28/20 spironolactone 50 mg PO DAILY 07/22/20 07/28/20 trazodone 200 mg PO BEDTIME PRN 07/22/20 07/28/20 clopidogrel 75 mg PO DAILY 07/28/20 07/28/20 Allergies Allergy/AdvReac Type Severity Reaction Status Date / Time nitrofurantoin Allergy Intermediate SWELLING Verified 07/22/20 12:53 [From MACROBID] azithromycin [Azithromycin] Allergy Mild SWELLING Verified 07/22/20 12:53 Zithromax Allergy Unknown Swelling Uncoded 07/22/20 18:22 Review of Systems Review of Systems: Constitutional : No Fever, No Chills ENT/Mouth : No sore throat, No Rhinorrhea, No Swallowing Difficulty Eyes: No Eye Pain, No Swelling, No Redness Cardiovascular : No Chest Pain, positive SOB, No Orthopnea, positive Edema Respiratory : No Cough, No Sputum, No Wheezing, positive dyspnea Gastrointestinal : No Nausea, No Vomiting, No Diarrhea, No abdominal Pain, No Hematochezia, No Melena Genitourinary : No Dysuria, No Urinary Frequency, No Hematuria Musculoskeletal : No joint pain, No Myalgias Skin : No Skin Lesions, No rash Neuro : No Weakness, No Numbness, No Dizziness, No Headache Psych : No Anxiety/Panic, No Depression Heme/Lymph: No Bruising, No Lymphadenopathy Endocrine : No Polyuria, No Polydipsia All other systems reviewed and are negative [facility] Past Medical History Attestation statement: The following information was validated with the patient. Medical History CAD (coronary artery disease) CHF (congestive heart failure) Chronic pancreatitis COPD (chronic obstructive pulmonary disease) Degenerative arthritis of knee, bilateral Diverticulosis Dysuria Essential hypertension Hyperlipidemia LDL goal <70 Memory loss Morbid obesity due to excess calories Pulmonary embolism SVT (supraventricular tachycardia) Type 2 diabetes mellitus with diabetic polyneuropathy Vertigo Surgical History Hx of cardiac catheterization Family History Family History Father CVD (cardiovascular disease) Mother No problems noted. Maternal Grandmother Diabetes Maternal Uncle Diabetes Maternal Aunt Diabetes Social History Social History Household Members: Family Housing: Apartment Alcohol intake: never Smoking Status: Never smoker Advance Directives: Yes Advance Directives on File: Yes Advance Directives Date on File: 11/30/19 service: No Current occupational status: disabled Physical Exam Vital Signs: Vital Signs: Last Vital Signs Temp 98.0 F 07/28/20 11:24 Pulse 63 07/28/20 11:24 Resp 16 07/28/20 11:24 BP 129/58 L 07/28/20 11:24 Pulse Ox 99 07/28/20 11:24 Body Mass Index 65.9 Appearance: Alert. Oriented X3. No acute distress. Eyes: Pupils equal, round and reactive to light. ENT: Pharynx normal. Neck: Normal inspection. Neck supple. CVS: Normal heart rate and rhythm. Pulses normal. Respiratory: No respiratory distress. Breath sounds decreased with diffuse end exp wheezes Abdomen: Soft and nontender. Skin: Skin warm and dry. Normal skin color. Normal skin turgor. Extremities: pos bilateral lower extremity edema 2 to 3+. No calf ttp Neuro: Oriented X 3. No motor deficit. No sensory deficit. Course Course Course Narrative: repeat 5mg neb, off O2 she is 84% on RA, morphine for body aches, given O2 requirement will need admission and IV antibiotics, call to hospitalist MDM - SOB/Dyspnea MDM Narrative Medical decision making narrative: 65 yo female with CAD, CHF, obesity, COPD, DM, here with three days of productive cough/dyspnea, body aches - ran out of albuterol for her nebulizer, will need IV, CXR, cultures, lactic acid, 5mg albuterol neb, IV steroids, IV morphine for pain, dispo per results and findings - likely admit vs placement Lab Data Result diagrams: 07/28/20 12:47 07/28/20 12:47 Labs: Lab Results 07/28/20 07/28/20 07/28/20 Range/Units 12:35 12:47 12:47 WBC 7.9 (4.8-10.8) X10*3/uL RBC 3.56 L (4.20-5.50) X10*6/uL Hgb 9.8 L (12.0-16.0) g/dl Hct 29.8 L (37-47) % MCV 83.7 (80-98) fL MCH 27.5 (27.0-33.0) pg MCHC 32.9 (31.0-35.0) g/dl RDW 14.7 (11.0-16.0) % Plt Count 226 (160-400) X10*3/uL MPV 8.9 L (9.4-12.3) fL Immature Gran % (Auto) 1.3 H (0.0-0.4) % Neut % (Auto) 73.5 H (45-73) % Lymph % (Auto) 12.4 L (20-40) % Rapides % (Auto) 8.5 (2-11) % Eos % (Auto) 3.9 (0-4) % Baso % (Auto) 0.4 (0-2) % Lymph # (Auto) 1.0 L (1.2-4.9) X10*3/uL Rapides # (Auto) 0.7 (0.1-1.2) X10*3/uL Eos # (Auto) 0.3 (0.0-0.4) X10*3/uL Baso # (Auto) 0.0 (0.0-0.2) X10*3/uL Abs Immat Gran (auto) 0.10 H (0.00-0.03) X10*3/uL Absolute Neuts (auto) 5.8 (2.0-8.3) X10*3/uL Absolute Nucleated RBC 0.000 (0.0-0.012) X10*3/uL Nucleated RBC % (auto) 0.0 (0.0-0.2) /100WBC PT (10.8-13.0) SEC INR (0.9-1.1) APTT (24.1-38.0) SEC ABG pH 7.38 (7.35-7.45) ABG pCO2 56 H (32-45) mmhg ABG pO2 55 L (83-108) mmhg ABG HCO3 33 H (22-26) mmol/l ABG O2 Saturation 88.4 % ABG Base Excess 6.3 Oxygen Given ROOM AIR Sodium 122 L (135-145) mmol/L Potassium 5.3 H D (3.3-5.1) mmol/l Chloride 79 L (96-108) mmol/L Carbon Dioxide 32 H (22-29) mmol/L Anion Gap 16 (12-20) BUN 45 H (9-16) mg/dL Creatinine 1.79 H (0.5-1.4) mg/dL Estim Creat Clear Calc 42.6 Estimated GFR 28 Random Glucose 209 H D (60-115) mg/dL Lactic Acid (0.5-2.0) mmol/L Calcium 8.1 L (8.4-10.2) mg/dL Magnesium (1.6-2.6) mg/dL Total Bilirubin (0.0-1.0) mg/dL Direct Bilirubin (0.0-0.5) mg/dL AST (5-31) U/L ALT (0-31) U/L Alkaline Phosphatase (39-117) U/L Troponin I High Sens (<3.5-17.0) ng/L B-Natriuretic Peptide (<100) pg/mL Total Protein (6.5-8.0) g/dL Albumin (3.5-5.0) g/dL 07/28/20 07/28/20 07/28/20 Range/Units 12:47 12:47 12:47 WBC (4.8-10.8) X10*3/uL RBC (4.20-5.50) X10*6/uL Hgb (12.0-16.0) g/dl Hct (37-47) % MCV (80-98) fL MCH (27.0-33.0) pg MCHC (31.0-35.0) g/dl RDW (11.0-16.0) % Plt Count (160-400) X10*3/uL MPV (9.4-12.3) fL Immature Gran % (Auto) (0.0-0.4) % Neut % (Auto) (45-73) % Lymph % (Auto) (20-40) % Rapides % (Auto) (2-11) % Eos % (Auto) (0-4) % Baso % (Auto) (0-2) % Lymph # (Auto) (1.2-4.9) X10*3/uL Rapides # (Auto) (0.1-1.2) X10*3/uL Eos # (Auto) (0.0-0.4) X10*3/uL Baso # (Auto) (0.0-0.2) X10*3/uL Abs Immat Gran (auto) (0.00-0.03) X10*3/uL Absolute Neuts (auto) (2.0-8.3) X10*3/uL Absolute Nucleated RBC (0.0-0.012) X10*3/uL Nucleated RBC % (auto) (0.0-0.2) /100WBC PT 17.1 H (10.8-13.0) SEC INR 1.4 H (0.9-1.1) APTT 44.2 H (24.1-38.0) SEC ABG pH (7.35-7.45) ABG pCO2 (32-45) mmhg ABG pO2 (83-108) mmhg ABG HCO3 (22-26) mmol/l ABG O2 Saturation % ABG Base Excess Oxygen Given Sodium (135-145) mmol/L Potassium (3.3-5.1) mmol/l Chloride (96-108) mmol/L Carbon Dioxide (22-29) mmol/L Anion Gap (12-20) BUN (9-16) mg/dL Creatinine (0.5-1.4) mg/dL Estim Creat Clear Calc Estimated GFR Random Glucose (60-115) mg/dL Lactic Acid (0.5-2.0) mmol/L Calcium (8.4-10.2) mg/dL Magnesium 2.2 (1.6-2.6) mg/dL Total Bilirubin 0.9 (0.0-1.0) mg/dL Direct Bilirubin 0.4 (0.0-0.5) mg/dL AST 24 (5-31) U/L ALT 14 (0-31) U/L Alkaline Phosphatase 132 H (39-117) U/L Troponin I High Sens (<3.5-17.0) ng/L B-Natriuretic Peptide 518 H (<100) pg/mL Total Protein 6.8 (6.5-8.0) g/dL Albumin 3.9 (3.5-5.0) g/dL 07/28/20 07/28/20 Range/Units 12:47 12:47 WBC (4.8-10.8) X10*3/uL RBC (4.20-5.50) X10*6/uL Hgb (12.0-16.0) g/dl Hct (37-47) % MCV (80-98) fL MCH (27.0-33.0) pg MCHC (31.0-35.0) g/dl RDW (11.0-16.0) % Plt Count (160-400) X10*3/uL MPV (9.4-12.3) fL Immature Gran % (Auto) (0.0-0.4) % Neut % (Auto) (45-73) % Lymph % (Auto) (20-40) % Rapides % (Auto) (2-11) % Eos % (Auto) (0-4) % Baso % (Auto) (0-2) % Lymph # (Auto) (1.2-4.9) X10*3/uL Rapides # (Auto) (0.1-1.2) X10*3/uL Eos # (Auto) (0.0-0.4) X10*3/uL Baso # (Auto) (0.0-0.2) X10*3/uL Abs Immat Gran (auto) (0.00-0.03) X10*3/uL Absolute Neuts (auto) (2.0-8.3) X10*3/uL Absolute Nucleated RBC (0.0-0.012) X10*3/uL Nucleated RBC % (auto) (0.0-0.2) /100WBC PT (10.8-13.0) SEC INR (0.9-1.1) APTT (24.1-38.0) SEC ABG pH (7.35-7.45) ABG pCO2 (32-45) mmhg ABG pO2 (83-108) mmhg ABG HCO3 (22-26) mmol/l ABG O2 Saturation % ABG Base Excess Oxygen Given Sodium (135-145) mmol/L Potassium (3.3-5.1) mmol/l Chloride (96-108) mmol/L Carbon Dioxide (22-29) mmol/L Anion Gap (12-20) BUN (9-16) mg/dL Creatinine (0.5-1.4) mg/dL Estim Creat Clear Calc Estimated GFR Random Glucose (60-115) mg/dL Lactic Acid 1.4 (0.5-2.0) mmol/L Calcium (8.4-10.2) mg/dL Magnesium (1.6-2.6) mg/dL Total Bilirubin (0.0-1.0) mg/dL Direct Bilirubin (0.0-0.5) mg/dL AST (5-31) U/L ALT (0-31) U/L Alkaline Phosphatase (39-117) U/L Troponin I High Sens < 3.5 (<3.5-17.0) ng/L B-Natriuretic Peptide (<100) pg/mL Total Protein (6.5-8.0) g/dL Albumin (3.5-5.0) g/dL Critical Care Time Critical Care Time Critical Care Time: Yes Total Critical Care Time: 35 Attestation: repeat 5mg neb, IV morphine, supplemental O2 I attest to this time spent taking care of the patient Discharge Plan Discharge Clinical Impression: COPD (chronic obstructive pulmonary disease) Patient Disposition: Admitted As Inpatient Prescriptions: No Action metolazone 2.5 mg Tablet 2.5 mg PO DAILY RF: 0 atorvastatin 80 mg Tablet 80 mg PO DAILY RF: 0 bumetanide 2 mg Tablet 2 mg PO BID RF: 0 albuterol sulfate 2.5 mg /3 mL (0.083 %) Solution For Nebulization 2.5 mg INHALATION Q4H PRN (Reason: Shortness Of Breath) RF: 0 sertraline 100 mg Tablet 200 mg PO DAILY RF: 0 melatonin 3 mg Tablet 3 mg PO BEDTIME PRN (Reason: Sleep) RF: 0 amlodipine [Norvasc] 5 mg Tablet 5 mg PO DAILY RF: 0 acetaminophen 650 mg Tablet Extended Release 650 mg PO Q8H PRN (Reason: Pain (Scale Score 1-3)) RF: 0 pantoprazole [Protonix] 20 mg Tablet,Delayed Release (Dr/Ec) 20 mg PO DAILY RF: 0 isosorbide mononitrate 60 mg Tablet Extended Release 24 Hr 60 mg PO DAILY RF: 0 potassium chloride [Klor-Con M20] 20 mEq Tablet,Er Particles/Crystals 20 meq PO DAILY RF: 0 trazodone 100 mg Tablet 200 mg PO BEDTIME PRN (Reason: Sleep) RF: 0 metoprolol tartrate 50 mg Tablet 75 mg PO BID RF: 0 olanzapine [Zyprexa] 15 mg Tablet 15 mg PO BEDTIME RF: 0 Flovent HFA 110 mcg/actuation Hfa Aerosol Inhaler 1 puff INHALATION BID RF: 0 spironolactone 50 mg Tablet 50 mg PO DAILY RF: 0 insulin aspart U-100 [Novolog Flexpen U-100 Insulin] 100 unit/mL (3 mL) Insulin Pen See Protocol unit SUBCUT TID RF: 0 metformin 500 mg Tablet Extended Release 24hr 1,000 mg PO DAILY RF: 0 Eliquis 5 mg Tablet 5 mg PO BID RF: 0 Incruse Ellipta 62.5 mcg/actuation Blister With Device 1 inh INHALATION DAILY RF: 0 clopidogrel 75 mg Tablet 75 mg PO DAILY RF: 0
--- NOTE | 2020-07-28 12:01 | ECG_ITS ---
Test Reason : DYSPNEA Blood Pressure : / mmHG Vent. Rate : 065 BPM Atrial Rate : 065 BPM P-R Int : 158 ms QRS Dur : 102 ms QT Int : 454 ms P-R-T Axes : 048 -16 019 degrees QTc Int : 472 ms Normal sinus rhythm Left axis deviation Otherwise normal ECG When compared with ECG of 22-JUL-2020 13:08, No significant change was found Referred By: Loree Headley Electronically Signed By:JORGE LUIS SALAZAR MD
--- NOTE | 2020-07-28 12:02 | XR_ITS ---
EXAMINATION: XR CHEST CLINICAL INFORMATION: Dyspnea COMPARISON: Chest radiographs 07/22/2020, 03/24/2020 TECHNIQUE: Portable upright AP view of the chest was obtained. FINDINGS: There is even distribution vascularity with perivascular cuffing suggesting mild congestive failure. There are some subtle groundglass opacity which may represent early edema. There is no lobar or segmental airspace consolidation or effusion. The cardiac and hilar and mediastinal contours and bony structures are similar to recent prior study. XR/XR chest 1V IMPRESSION: Increased vascularity with perivascular cuffing and probable early edema.
[2020-07-28] MEDS: Albuterol Sulfate (0.083%) 2.5 MG/3 ML VIAL.NEB 5 MG INHALE ×2 (12:07→14:07)
--- NOTE | 2020-07-28 12:20 | PC.NURSE ---
pt shouting out while in room by self, moaning and appearing to be in distress. this rn at bedside to start iv and blood labs, pt subsequently appearing comfortable in stretcher and making no extraneous noises. unable to obtain iv or blood labs, provider aware. once this rn has left room, pt continues to shout out and sts my pain! my pain! .
[2020-07-28 12:40] VITALS: O2SAT 92
[2020-07-28 12:42] LABS: Pt Ventilation O2% ROOM AIR
[2020-07-28 12:51] LABS: ABG PCO2 56 mmhg (32-45); Base Excess ABG 6.3; HCO3 ABG 33 mmol/l (22-26); Oxygen Saturation ABG 88.4 %; PO2 ABG 55 mmhg (83-108); pH ABG 7.38 (7.35-7.45)
[2020-07-28 12:54] LABS: MANUAL DIFF FLAG NO
[2020-07-28] MEDS: Morphine Sulfate 4 MG/ML CARTRIDGE IVPUSH (12:55)
[2020-07-28] MEDS: methylPREDNISolone Sod Succ/PF 125 MG/2 ML VIAL 60 MG IVPUSH (12:55)
[2020-07-28 12:56] LABS: Basophils Percent Auto 0.4 % (0-2); Eosinophils Absolute Auto 0.3 X10*3/uL (0.0-0.4); Eosinophils Percent Auto 3.9 % (0-4); Hematocrit 29.8 % (37-47); Hemoglobin 9.8 g/dl (12.0-16.0); Imm Gran Pct Auto 1.3 % (0.0-0.4); Lymphocytes Percent Auto 12.4 % (20-40); Mean Corpuscular HGB Conc 32.9 g/dl (31.0-35.0); Mean Corpuscular Hemoglobin 27.5 pg (27.0-33.0); Mean Corpuscular Volume 83.7 fL (80-98); Mean Platelet Volume 8.9 fL (9.4-12.3); Monocytes Absolute Auto 0.7 X10*3/uL (0.1-1.2); Monocytes Percent Auto 8.5 % (2-11); Neutrophils Absolute Auto 5.8 X10*3/uL (2.0-8.3); Neutrophils Percent Auto 73.5 % (45-73); Platelet Count 226 X10*3/uL (160-400); Red Blood Count 3.56 X10*6/uL (4.20-5.50); Red Cell Distribution Width 14.7 % (11.0-16.0); White Blood Count 7.9 X10*3/uL (4.8-10.8)
[2020-07-28] MEDS: ondansetron HCL 4 MG/2 ML VIAL IVPUSH (12:56)
[2020-07-28 13:02] LABS: INTERNATIONAL NORM RATIO 1.4 (0.9-1.1); Prothrombin Time 17.1 SEC (10.8-13.0)
[2020-07-28 13:04] LABS: Partial Thromboplastin Time 44.2 SEC (24.1-38.0)
[2020-07-28 13:12] LABS: Lactic Acid 1.4 mmol/L (0.5-2.0)
[2020-07-28 13:22] LABS: B Type Natriuretic Peptide 518 pg/mL (<100)
[2020-07-28 13:25] LABS: Troponin-I High Sensitivity < 3.5 ng/L (<3.5-17.0)
[2020-07-28 13:28] LABS: Alanine Aminotransferase 14 U/L (0-31); Albumin Level 3.9 g/dL (3.5-5.0); Alkaline Phosphatase 132 U/L (39-117); Aspartate Amino Transferase 24 U/L (5-31); Bilirubin Direct 0.4 mg/dL (0.0-0.5); Bilirubin Total 0.9 mg/dL (0.0-1.0); Magnesium 2.2 mg/dL (1.6-2.6); Total Protein 6.8 g/dL (6.5-8.0)
[2020-07-28 13:37] LABS: Anion Gap 16 (12-20); Blood Urea Nitrogen 45 mg/dL (9-16); Calcium 8.1 mg/dL (8.4-10.2); Carbon Dioxide 32 mmol/L (22-29); Chloride 79 mmol/L (96-108); Creatinine Clr Calc Pharmacy 42.6; Estimated Glomerular Filt Rate 28; Glucose Random 209 mg/dL (60-115); Potassium 5.3 mmol/l (3.3-5.1); Sodium 122 mmol/L (135-145)
[2020-07-28] MEDS: cefTRIAXone sodium 1 GM in 0.9 % Sodium Chloride 50 ML IV (14:34)
--- NOTE | 2020-07-28 14:55 | PC.NURSE ---
hospitalist at bedside
[2020-07-28] MEDS: Doxycycline Hyclate 100 MG in 0.9 % Sodium Chloride 250 ML 166.67 MG IV (15:06)
[2020-07-28 15:40] LABS: SARS COV2 PCR INHOUSE NEGATIVE (Negative)
[2020-07-28 17:16] VITALS: BP 144/68; PULSE 76; RESP 20
--- NOTE | 2020-07-28 17:21 | HP_ITS ---
DATE OF SERVICE: 07/28/2020 PRIMARY CARE PROVIDER: Not listed. CHIEF COMPLAINT: Shortness of breath and cough. HISTORY OF PRESENT ILLNESS: 65-year-old woman, who presented to the ER with complaints of cough and yellow phlegm. She reported that she ran out of her albuterol nebs approximately 2 days ago and her symptoms were getting progressively worse. She was recently discharged from [facility] on July 25 and at that time treated for acute on chronic diastolic heart failure. She was started on IV Bumex and metolazone. She was diuresed well and she was sent home with p.o. Bumex and metolazone to follow up with Cardiology. She reports that since her discharge, she has continued to feel short of breath and has increased swelling to her lower extremities. Her BNP is noted to be elevated, but around where she usually is at 518. She was also noted to have a low sodium of 122, which is chronic, but somewhat lower than her previous. Her potassium is elevated at 5.3, chloride 79, creatinine 1.79 with history of CKD. Blood gas showed pCO2 of 56 and pO2 of 55, pH 7.38. The patient was given dose of morphine, Zofran, Solu-Medrol, albuterol, Rocephin, doxycycline, ceftriaxone. The patient will be admitted for further management and treatment of acute on chronic congestive heart failure. PAST MEDICAL HISTORY: 1. Hypertension. 2. Coronary artery disease, status post PCI with stent in 2013. 3. Asthma. 4. Diabetes. 5. Depression. 6. Atrial fibrillation/atrial flutter, history of AVNRT. 7. GERD. 8. MOISÉS, noncompliant with CPAP. PAST SURGICAL HISTORY: 1. Tubal ligation. 2. Cholecystectomy. 3. ERCP. FAMILY HISTORY: Negative for coronary artery disease. SOCIAL HISTORY: She denies any tobacco, alcohol, or illicit drugs. ALLERGIES: NITROFURANTOIN, AZITHROMYCIN, AND ZITHROMAX. MEDICATIONS: 1. Acetaminophen 650 mg p.o. q.8 hours p.r.n. for fever or pain. 2. Albuterol sulfate 2.5 mg inhalation q.4 hours as needed. 3. Amlodipine 5 mg p.o. daily. 4. Atorvastatin 80 mg p.o. daily. 5. Bumetanide 2 mg p.o. b.i.d. 6. Clopidogrel 75 mg p.o. daily. 7. Eliquis 5 mg p.o. b.i.d. 8. Flovent 1 puff inhalation b.i.d. 9. Incruse Ellipta 1 inhalation daily. 10. Insulin aspart NovoLog pen. 11. Isosorbide mononitrate 60 mg p.o. daily. 12. Melatonin 3 mg p.o. at bedtime. 13. Metformin 1000 mg p.o. daily. 14. Metolazone 2.5 mg p.o. daily. 15. Metoprolol tartrate 75 mg p.o. b.i.d. 16. Zyprexa 15 mg p.o. at bedtime. 17. Pantoprazole sodium 20 mg p.o. daily. 18. Potassium chloride 20 mEq p.o. daily. 19. Sertraline 20 mg p.o. daily. 20. Spironolactone 50 mg p.o. daily. 21. Trazodone 20 mg p.o. at bedtime. REVIEW OF SYSTEMS: CONSTITUTIONAL: Denies any recent fever, chills, or decrease in appetite. RESPIRATORY: Reports some shortness of breath with cough and yellow sputum production. CARDIOVASCULAR: Denies any chest pain, orthopnea, PND. Reports chronic edema. GASTROINTESTINAL: Denies any dysphagia, abdominal pain, nausea, vomiting, or diarrhea. GENITOURINARY: Denies any dysuria, frequency, or hematuria. MUSCULOSKELETAL: Denies any joint pain or swelling. NEUROPSYCH: Denies any weakness or seizures. All other systems are reviewed and are negative. PHYSICAL EXAMINATION: CONSTITUTIONAL: Resting in bed, appearing sleepy, in no acute distress. VITAL SIGNS: 98.0, 63, 16, 129/58, 99% on 2 L. SKIN: Intact without rash or open sores. Chronic skin changes to lower extremities. HEENT: Head is normocephalic, atraumatic. Eyes, pupils are PERRLA. Sclerae anicteric. Mouth and Throat: Mucous membranes are intact and moist. NECK: Supple. No lymphadenopathy. No JVD noted. CHEST: Diminished throughout. HEART: Regular rate and rhythm. ABDOMEN: Obese. Positive bowel sounds. No hepatomegaly or splenomegaly noted. NEURO: The patient is alert and oriented x3. Cranial nerves II through XII are grossly intact without focal deficits. LABORATORY DATA: WBC 7.9, hemoglobin 9.8, hematocrit 29.8, platelets 226. Sodium is 122, potassium 5.3, chloride is 79, bicarb is 32, BUN is 45, creatinine is 1.79, glucose is 209. ASSESSMENT AND PLAN: A 65-year-old woman, who is being admitted with acute on chronic congestive heart failure. Chest CT is pending. A chest x-ray did show some pulmonary edema. COVID PCR is also pending. 1. Acute on chronic congestive heart failure. We will hold metolazone. Start loop diuretics, thread twister to follow. Daily weights, and intake and output. 2. Hyponatremia. Seems chronic, but lower than more recently. Nephrology to follow. Seems likely that she needs diuresis. We will start IV Lasix. Follow BMP closely. 3. Hyponatremia, mild. We will watch, recheck. If it continues to be elevated, we will add a dose of Kayexalate. 4. Anemia. Chronic. No signs of bleeding at this time. 5. Acute kidney injury on chronic kidney disease. Mildly elevated from baseline, possibly related to heart failure versus multiple diuretics. Will be diuresing for now and follow BMP closely. Nephrology to follow. 6. Diabetes mellitus. Sliding scale, ADA diet. We will hold metformin due to acute kidney injury on chronic kidney disease. 7. History of atrial fibrillation. Stable heart rate. We will continue Eliquis and beta dustin. 8. Depression. Continue home medications. 9. History of coronary artery disease. Continue Plavix, statin, and beta dustin. 10. Deep vein thrombosis prophylaxis with Eliquis. 11. Case discussed with Dr. Brian. 12. Full code. YOHANNES Isaac MD JR/HERMELINDOL / [id number]
--- NOTE | 2020-07-28 18:06 | PC.NURSE ---
report given to lainey pizarro [facility] [place]
--- NOTE | 2020-07-28 19:05 | P.EN_ITS ---
Event Note Date of Service: 07/28/2020 Event Note: Patient seen and examined. Case discussed with Ashley Baird NP. Agree with her history and physical. in brief, a 65-year-old female with a past medical history of diastolic heart failure and morbid obesity who presents to the hospital with complaints of sh ortness of breath which is present at all times. She was admitted to the hospital several days ago for heart failure and was diuresed. Now returns with what appears to be the same. 1. Shortness of breath, question related to CHF versus other etiology. She has in the past had diffuse alveolar hemorrhage but at this time she denies any hemoptysis. 2. continue with IV diuresis and have Cardiology see her. Her last echo was in October 2019, may need a repeat but will defer this Cardio 3. Chronic hyponatremia although acutely worsened to 122. recheck sodium this evening. Nephrology is following. 4. may need to consider CT scan tomorrow if not improved as well as pulmonary evaluation. 5. Remainder per H&P
[2020-07-28 19:20] VITALS: BP 131/75; PULSE 70; RESP 18; TEMP 36.3; O2SAT 99
[2020-07-28] MEDS: Albuterol/Iprat 2.5/0.5MG 3 ML AMPUL.NEB INHALE (19:23)
[2020-07-28 19:57] LABS: Anion Gap 13 (12-20); Blood Urea Nitrogen 45 mg/dL (9-16); Calcium 8.1 mg/dL (8.4-10.2); Carbon Dioxide 35 mmol/L (22-29); Chloride 81 mmol/L (96-108); Creatinine Clr Calc Pharmacy 42.6; Estimated Glomerular Filt Rate 28; Glucose Random 329 mg/dL (60-115); Potassium 5.7 mmol/l (3.3-5.1); Sodium 123 mmol/L (135-145)
[2020-07-28 20:03] LABS: Osmolality, Serum 295 mosm/kg (281-305)
[2020-07-28] MEDS: Furosemide 40 MG/4 ML VIAL IVPUSH (20:16)
[2020-07-28] MEDS: 0.9 % Sodium Chloride Flush 3 ML SYRINGE IVFLUSH (20:21)
[2020-07-28 20:27] LABS: Glucose, Whole Blood 360 mg/dL (60-115)
[2020-07-28] MEDS: Sodium Polystyrene Sulfon/Sorb 15 GM/60 ML ORAL.SUSP 30 GM PO (21:26)
[2020-07-28] MEDS: Insulin Lispro 100 UNIT/ML 3 ML VIAL SUBCUT (21:27)
[2020-07-28] MEDS: OLANZapine 7.5 MG TABLET 15 MG PO (21:29)
[2020-07-28] MEDS: Apixaban 5 MG TABLET PO (21:30)
[2020-07-28 21:32] VITALS: BP 150/90; PULSE 72
[2020-07-28] MEDS: Metoprolol Tartrate 25 MG TABLET 75 MG PO (21:32)
[2020-07-28 23:33] VITALS: BP 140/68; PULSE 66; RESP 20; TEMP 36.5; O2SAT 96
[2020-07-29] VITALS (7 sets, daily range): BP systolic 113–141; BP diastolic 52–72; PULSE 68–77; RESP 18–20; TEMP 36.1–36.6; O2SAT 93–100; BMI 71.1; BMI 58.7
[2020-07-29] MEDS: 0.9 % Sodium Chloride Flush 3 ML SYRINGE IVFLUSH ×3 (00:42→16:33)
[2020-07-29 00:59] LABS: Anion Gap 17 (12-20); Blood Urea Nitrogen 47 mg/dL (9-16); Calcium 7.8 mg/dL (8.4-10.2); Carbon Dioxide 30 mmol/L (22-29); Chloride 82 mmol/L (96-108); Creatinine Clr Calc Pharmacy 43.9; Estimated Glomerular Filt Rate 29; Glucose Random 406 mg/dL (60-115); Potassium 5.6 mmol/l (3.3-5.1); Sodium 123 mmol/L (135-145)
[2020-07-29] MEDS: Insulin Lispro 100 UNIT/ML 3 ML VIAL 10 UNIT SUBCUT (01:48)
[2020-07-29 05:27] LABS: Glucose, Whole Blood 305 mg/dL (60-115)
[2020-07-29 07:10] LABS: Basophils Percent Auto 0.1 % (0-2); Hematocrit 32.6 % (37-47); Hemoglobin 10.4 g/dl (12.0-16.0); Imm Gran Abs Auto 0.09 X10*3/uL (0.00-0.03); Imm Gran Pct Auto 1.3 % (0.0-0.4); Lymphocytes Absolute Auto 0.4 X10*3/uL (1.2-4.9); Lymphocytes Percent Auto 5.9 % (20-40); MANUAL DIFF FLAG SCAN; Mean Corpuscular HGB Conc 31.9 g/dl (31.0-35.0); Mean Corpuscular Hemoglobin 26.9 pg (27.0-33.0); Mean Corpuscular Volume 84.5 fL (80-98); Mean Platelet Volume 9.4 fL (9.4-12.3); Monocytes Absolute Auto 0.3 X10*3/uL (0.1-1.2); Monocytes Percent Auto 4.3 % (2-11); Neutrophils Percent Auto 88.4 % (45-73); Platelet Count 226 X10*3/uL (160-400); Red Blood Count 3.86 X10*6/uL (4.20-5.50); Red Cell Distribution Width 14.6 % (11.0-16.0); SCAN SMEAR FLAG 1; White Blood Count 6.8 X10*3/uL (4.8-10.8)
[2020-07-29] MEDS: Albuterol/Iprat 2.5/0.5MG 3 ML AMPUL.NEB INHALE ×4 (07:19→20:19)
[2020-07-29 07:41] LABS: SLIDE REVIEW VERIFIED
[2020-07-29 07:45] LABS: Anion Gap 14 (12-20); Blood Urea Nitrogen 47 mg/dL (9-16); Calcium 8.3 mg/dL (8.4-10.2); Carbon Dioxide 36 mmol/L (22-29); Chloride 81 mmol/L (96-108); Estimated Glomerular Filt Rate 30; Glucose Random 333 mg/dL (60-115); Potassium 5.3 mmol/l (3.3-5.1); Sodium 126 mmol/L (135-145)
[2020-07-29 07:46] LABS: Glucose, Whole Blood 317 mg/dL (60-115)
[2020-07-29] MEDS: Clopidogrel Bisulfate 75 MG TABLET PO (08:30)
[2020-07-29] MEDS: Atorvastatin Calcium 80 MG TABLET PO (08:30)
[2020-07-29] MEDS: Insulin Lispro 100 UNIT/ML 3 ML VIAL SUBCUT ×4 (08:30→21:22)
[2020-07-29] MEDS: Furosemide 40 MG/4 ML VIAL IVPUSH (08:30)
[2020-07-29] MEDS: Apixaban 5 MG TABLET PO ×2 (08:31→21:27)
[2020-07-29] MEDS: Metoprolol Tartrate 25 MG TABLET 75 MG PO ×2 (08:31→21:27)
[2020-07-29] MEDS: amLODIPine Besylate 5 MG TABLET PO (08:31)
[2020-07-29] MEDS: Isosorbide Mononitrate 60 MG TAB.ER.24H PO (08:31)
[2020-07-29] MEDS: Sertraline HCL 100 MG TABLET 200 MG PO (08:31)
--- NOTE | 2020-07-29 08:45 | P.CDIC_ITS ---
CDI Concurrent Query Service Date: 07/29/20 Documentation Clarification: Please clarify if you are treating a proba ble/suspected/likely or confirmed: Acute on chronic kidney disease Stage 1-5 Please specify if known Provider Response: CKD Stage 3 PLEASE DO NOT DELETE/MODIFY EXISTING CONTENT Additional information is needed in order to code to the highest accuracy and appropriate Severity of Illness (SOI). Please clarify the information noted below in your progress notes and discharge summary. Risk Factors/Clinical Indicators/Treatments H&P: WANDA on CKD, mildly elevated from baseline possibly related to heart failure vs multiple diuretics. CR 1.79 Bun 45 Gfr 28 Assessment/plan: DM - hold metformin due to Acute kidney disease on chronic kidney disease. CDS: Yoli Serrano CCS, CDIS Contact Number: [phone] Please Review the information above and exercise your independent professional judgment in responding to the query. If you concur, pleas document in the PROGRESS NOTES and DISCHARGE SUMMARY. If you do not agree with the query, please document in the query above. THIS QUERY IS PART OF THE PERMANENT MEDICAL RECORD
--- NOTE | 2020-07-29 10:55 | P.CONCA_ITS ---
History of Present Illness History of Present Illness Date of Consult: July 29, 2020 Consult reason: congestive heart failure Chief complaint: acute on chronic chf Narrative: thank you for inviting us in the consult on Lawanda for congestive heart failure. She is a pleasant lady with very complicated past medical history with prior history of CAD with circumflex stenting, paroxysmal atrial fibrillation, mitral regurgitation which as deemed to be not significant, diastolic heart failure, morbid obesity, COPD, prior history of pulmonary hemorrhage, diabetes. Patient was recently discharged from the hospital after admission with decompensated congestive heart failure with fluid overload. She was diuresed and subsequently had WANDA. her diuretics were held and she was subsequently discharged 3 days ago. she then present the hospital with progressive shortness of breath, leg edema, cough productive of yellowish phlegm and not able to breathe. She was noticed to be hypoxic and in heart failure with elevated BNP in the 500 range. Her dry BNP is in the 100 range. She was evaluated extensively for mitral regurgitation which was felt to be mild by cardiac catheterization with normal filling pressures in March 2020. Since then she has had increased fluid gain despite increasing outpatient diuretic therapy at leading to last hospitalization. She also developed elevated creatinine consistent chronic kidney disease. ABG shows hypoxic hypercarbic respiratory failure. Today she says she feels well. She has diuresed about 600 cc negative balance. She denies any chest pain. No episodes of atrial fibrillation. Today she says she feels weak and tired. Review of Systems Constitutional: Constitutional: Denies chills, Reports fatigue, Denies fever(s), Reports lethargy, Reports malaise and Reports weakness Eyes: Eyes: Reports no additional eye complaints ENT: Reports system reviewed and no additional complaints, except as documen rosemary Cardiovascular: Cardiovascular: Denies chest pain, Denies irregular heart rhythm, Reports leg edema, Denies lightheadedness, Denies Loss of Consciousness and Reports dyspnea Respiratory: Respiratory: Reports change in phlegm color, Reports excessive phlegm production and Reports dyspnea Gastrointestinal: Gastrointestinal: Reports no additional gastrointestinal complaints Genitourinary: Genitourinary: Reports no additional female genitourinary complaints Musculoskeletal: Musculoskeletal: Reports no additional musculoskeletal complaints Neurologic: Reports system reviewed and no additional complaints, except as documented and Reports weakness Psychiatric: Psychiatric: Reports no additional psychiatric complaints Endocrine: Endocrine: Reports fatigue PMFSH Past Medical History Medical History CAD (coronary artery disease) CHF (congestive heart failure) Chronic pancreatitis COPD (chronic obstructive pulmonary disease) Degenerative arthritis of knee, bilateral Diverticulosis Dysuria Essential hypertension Hyperlipidemia LDL goal <70 Memory loss Morbid obesity due to excess calories Pulmonary embolism SVT (supraventricular tachycardia) Type 2 diabetes mellitus with diabetic polyneuropathy Vertigo Family History Family History Father CVD (cardiovascular disease) Mother No problems noted. Maternal Grandmother Diabetes Maternal Uncle Diabetes Maternal Aunt Diabetes Surgical History Surgical History Hx of cardiac catheterization Social History Social History Household Members: Children Housing: Apartment Alcohol intake: never Smoking Status: Former smoker Smoked in Last 30 Days: No Second Hand Smoke Exposure: No Use of substances other than those prescribed or required for medical reasons: No Currently Displaying Signs/Symptoms of Drug Intoxication Withdrawal: No Have you been hit, kicked, punched, or otherwise hurt by someone within the past year? If so, by whom?: No Is there a partner from a previous relationship who is making you feel unsafe now?: No Are you made to feel afraid or neglected: No Advance Directives: Yes Advance Directives on File: Yes Advance Directives Date on File: 11/30/19 Do you have thoughts of harming others: None Do you have a plan to hurt others: No Plan Recently lost weight without trying: No service: No Current occupational status: disabled Meds Allergies Allergy/AdvReac Type Severity Reaction Status Date / Time nitrofurantoin Allergy Intermediate SWELLING Verified 07/22/20 12:53 [From MACROBID] azithromycin [Azithromycin] Allergy Mild SWELLING Verified 07/22/20 12:53 Zithromax Allergy Unknown Swelling Uncoded 07/22/20 18:22 Home Medications Medication Instructions Recorded Confirmed Type Eliquis 5 mg PO BID 07/22/20 07/28/20 History Flovent HFA 1 puff INHALATION BID 07/22/20 07/28/20 History Incruse Ellipta 1 inh INHALATION DAILY 07/22/20 07/28/20 History acetaminophen 650 mg PO Q8H PRN 07/22/20 07/28/20 History albuterol sulfate 2.5 mg INHALATION Q4H PRN 07/22/20 07/28/20 History amlodipine [Norvasc] 5 mg PO DAILY 07/22/20 07/28/20 History atorvastatin 80 mg PO DAILY 07/22/20 07/28/20 History bumetanide 2 mg PO BID 07/22/20 07/28/20 History insulin aspart U-100 [Novolog See Protocol SUBCUT TID 07/22/20 07/28/20 History Flexpen U-100 Insulin] isosorbide mononitrate 60 mg PO DAILY 07/22/20 07/28/20 History melatonin 3 mg PO BEDTIME PRN 07/22/20 07/28/20 History metformin 1,000 mg PO DAILY 07/22/20 07/28/20 History metolazone 2.5 mg PO DAILY 07/22/20 07/28/20 History metoprolol tartrate 75 mg PO BID 07/22/20 07/28/20 History olanzapine [Zyprexa] 15 mg PO BEDTIME 07/22/20 07/28/20 History pantoprazole [Protonix] 20 mg PO DAILY 07/22/20 07/28/20 History potassium chloride [Klor-Con M20] 20 meq PO DAILY 07/22/20 07/28/20 History sertraline 200 mg PO DAILY 07/22/20 07/28/20 History spironolactone 50 mg PO DAILY 07/22/20 07/28/20 History trazodone 200 mg PO BEDTIME PRN 07/22/20 07/28/20 History clopidogrel 75 mg PO DAILY 07/28/20 07/28/20 History Physical Exam Vital Signs: Vital Signs: Last Vital Signs Temp 97.8 F 07/29/20 07:39 Pulse 69 07/29/20 08:31 Resp 20 07/29/20 07:39 BP 125/62 07/29/20 08:31 Pulse Ox 96 07/29/20 07:39 Body Mass Index 71.1 Const: General: no acute distress and lethargic Nutritional Appearance: obese morbidly obese Orientation/consciousness: lethargic Limitations: phy sical limitations HENMT: Head: Yes normal to inspection, Yes normocephalic and Yes atraumatic Eyes: General: appearance normal, both eyes and all related structures Neck: Neck: Yes trachea midline and Yes other ( Difficult to evaluate JVD due to thick neck) Chest: Chest palpation & inspection: normal inspection of the chest Resp: Effort & Inspection: decreased respiratory effort Auscultation: crackles bilateral at the base and diminished lung sounds Cardio: Palpation: other ( cannot assess PMI) Rate: regular rate Rhythm: regular rhythm Heart sounds: S1 normal heart sound present and S2 normal heart sound present GI: Inspection: Yes Abdominal panniculus present and Yes obesity Auscultation: normal bowel sounds Skin: General skin exam: no rashes or lesions noted Neuro: General: no focal motor deficits Extrem: General: Yes edema ( significant lower extremity edema bilaterally) Results Labs and Meds Result diagrams: 07/29/20 05:39 07/29/20 05:39 Lab results: Laboratory Results - last 24 hr 07/28/20 07/28/20 07/28/20 12:35 12:47 12:47 WBC 7.9 RBC 3.56 L Hgb 9.8 L Hct 29.8 L MCV 83.7 MCH 27.5 MCHC 32.9 RDW 14.7 Plt Count 226 MPV 8.9 L Immature Gran % (Auto) 1.3 H Neut % (Auto) 73.5 H Lymph % (Auto) 12.4 L Pepin % (Auto) 8.5 Eos % (Auto) 3.9 Baso % (Auto) 0.4 Lymph # (Auto) 1.0 L Pepin # (Auto) 0.7 Eos # (Auto) 0.3 Baso # (Auto) 0.0 Abs Immat Gran (auto) 0.10 H Absolute Neuts (auto) 5.8 Absolute Nucleated RBC 0.000 Nucleated RBC % (auto) 0.0 Smear Tech's Comments PT INR APTT ABG pH 7.38 ABG pCO2 56 H ABG pO2 55 L ABG HCO3 33 H ABG O2 Saturation 88.4 ABG Base Excess 6.3 Oxygen Given ROOM AIR Sodium 122 L Potassium 5.3 H D Chloride 79 L Carbon Dioxide 32 H Anion Gap 16 BUN 45 H Creatinine 1.79 H Estim Creat Clear Calc 42.6 Estimated GFR 28 POC Glucose Random Glucose 209 H D Osmolality Lactic Acid Calcium 8.1 L Magnesium Total Bilirubin Direct Bilirubin AST ALT Alkaline Phosphatase Troponin I High Sens B-Natriuretic Peptide Total Protein Albumin Coronavirus (PCR) 07/28/20 07/28/20 07/28/20 12:47 12:47 12:47 WBC RBC Hgb Hct MCV MCH MCHC RDW Plt Count MPV Immature Gran % (Auto) Neut % (Auto) Lymph % (Auto) Pepin % (Auto) Eos % (Auto) Baso % (Auto) Lymph # (Auto) Pepin # (Auto) Eos # (Auto) Baso # (Auto) Abs Immat Gran (auto) Absolute Neuts (auto) Absolute Nucleated RBC Nucleated RBC % (auto) Smear Tech's Comments PT 17.1 H INR 1.4 H APTT 44.2 H ABG pH ABG pCO2 ABG pO2 ABG HCO3 ABG O2 Saturation ABG Base Excess Oxygen Given Sodium Potassium Chloride Carbon Dioxide Anion Gap BUN Creatinine Estim Creat Clear Calc Estimated GFR POC Glucose Random Glucose Osmolality Lactic Acid Calcium Magnesium 2.2 Total Bilirubin 0.9 Direct Bilirubin 0.4 AST 24 ALT 14 Alkaline Phosphatase 132 H Troponin I High Sens B-Natriuretic Peptide 518 H Total Protein 6.8 Albumin 3.9 Coronavirus (PCR) 07/28/20 07/28/20 07/28/20 12:47 12:47 14:20 WBC RBC Hgb Hct MCV MCH MCHC RDW Plt Count MPV Immature Gran % (Auto) Neut % (Auto) Lymph % (Auto) Pepin % (Auto) Eos % (Auto) Baso % (Auto) Lymph # (Auto) Pepin # (Auto) Eos # (Auto) Baso # (Auto) Abs Immat Gran (auto) Absolute Neuts (auto) Absolute Nucleated RBC Nucleated RBC % (auto) Smear Tech's Comments PT INR APTT ABG pH ABG pCO2 ABG pO2 ABG HCO3 ABG O2 Saturation ABG Base Excess Oxygen Given Sodium Potassium Chloride Carbon Dioxide Anion Gap BUN Creatinine Estim Creat Clear Calc Estimated GFR POC Glucose Random Glucose Osmolality Lactic Acid 1.4 Calcium Magnesium Total Bilirubin Direct Bilirubin AST ALT Alkaline Phosphatase Troponin I High Sens < 3.5 B-Natriuretic Peptide Total Protein Albumin Coronavirus (PCR) NEGATIVE 07/28/20 07/28/20 07/28/20 19:18 19:18 20:23 WBC RBC Hgb Hct MCV MCH MCHC RDW Plt Count MPV Immature Gran % (Auto) Neut % (Auto) Lymph % (Auto) Pepin % (Auto) Eos % (Auto) Baso % (Auto) Lymph # (Auto) Pepin # (Auto) Eos # (Auto) Baso # (Auto) Abs Immat Gran (auto) Absolute Neuts (auto) Absolute Nucleated RBC Nucleated RBC % (auto) Smear Tech's Comments PT INR APTT ABG pH ABG pCO2 ABG pO2 ABG HCO3 ABG O2 Saturation ABG Base Excess Oxygen Given Sodium 123 L Potassium 5.7 H Chloride 81 L Carbon Dioxide 35 H Anion Gap 13 BUN 45 H Creatinine 1.79 H Estim Creat Clear Calc 42.6 Estimated GFR 28 POC Glucose 360 H* Random Glucose 329 H D Osmolality 295 Lactic Acid Calcium 8.1 L Magnesium Total Bilirubin Direct Bilirubin AST ALT Alkaline Phosphatase Troponin I High Sens B-Natriuretic Peptide Total Protein Albumin Coronavirus (PCR) 07/29/20 07/29/20 07/29/20 00:24 05:20 05:39 WBC 6.8 RBC 3.86 L Hgb 10.4 L Hct 32.6 L MCV 84.5 MCH 26.9 L MCHC 31.9 RDW 14.6 Plt Count 226 MPV 9.4 Immature Gran % (Auto) 1.3 H Neut % (Auto) 88.4 H Lymph % (Auto) 5.9 L Pepin % (Auto) 4.3 Eos % (Auto) 0.0 Baso % (Auto) 0.1 Lymph # (Auto) 0.4 L Pepin # (Auto) 0.3 Eos # (Auto) 0.0 Baso # (Auto) 0.0 Abs Immat Gran (auto) 0.09 H Absolute Neuts (auto) 6.0 Absolute Nucleated RBC 0.000 Nucleated RBC % (auto) 0.0 Smear Tech's Comments VERIFIED PT INR APTT ABG pH ABG pCO2 ABG pO2 ABG HCO3 ABG O2 Saturation ABG Base Excess Oxygen Given Sodium 123 L Potassium 5.6 H Chloride 82 L Carbon Dioxide 30 H Anion Gap 17 BUN 47 H Creatinine 1.74 H Estim Creat Clear Calc 43.9 Estimated GFR 29 POC Glucose 305 H Random Glucose 406 H* Osmolality Lactic Acid Calcium 7.8 L Magnesium Total Bilirubin Direct Bilirubin AST ALT Alkaline Phosphatase Troponin I High Sens B-Natriuretic Peptide Total Protein Albumin Coronavirus (PCR) 07/29/20 07/29/20 05:39 07:40 WBC RBC Hgb Hct MCV MCH MCHC RDW Plt Count MPV Immature Gran % (Auto) Neut % (Auto) Lymph % (Auto) Pepin % (Auto) Eos % (Auto) Baso % (Auto) Lymph # (Auto) Pepin # (Auto) Eos # (Auto) Baso # (Auto) Abs Immat Gran (auto) Absolute Neuts (auto) Absolute Nucleated RBC Nucleated RBC % (auto) Smear Tech's Comments PT INR APTT ABG pH ABG pCO2 ABG pO2 ABG HCO3 ABG O2 Saturation ABG Base Excess Oxygen Given Sodium 126 L Potassium 5.3 H Chloride 81 L Carbon Dioxide 36 H Anion Gap 14 BUN 47 H Creatinine 1.71 H Estim Creat Clear Calc 47.0 Estimated GFR 30 POC Glucose 317 H Random Glucose 333 H Osmolality Lactic Acid Calcium 8.3 L D Magnesium Total Bilirubin Direct Bilirubin AST ALT Alkaline Phosphatase Troponin I High Sens B-Natriuretic Peptide Total Protein Albumin Coronavirus (PCR) Assessment and Plan (1) Respiratory failure with hypoxia and hypercapnia: Status: Acute patient presents with respiratory failure with both hypercapnia and hypoxia. Clinical findings are mixed with evidence of both heart failure with fluid overload as well as COPD exacerbation. She also has high likelihood of underlying obstructive sleep apnea and Pickwickian syndrome with restrictive pulmonary defect. Pulmonary consult should be considered. Continue oxygen supplementation. Should require sleep study as outpatient possibly required BiPAP. (2) Acute on chronic diastolic (congestive) heart failure: Status: Acute Clinically appears to be fluid overloaded, however this is difficult to assess due to her body habitus. Her BNP is definitely elevated compared to a baseline in the mid 100s. I will consider more aggressively diuresing her. Switch her to Lasix drip at 5 mg an hour for now. Continue to monitor strict intake and output chart. Continue to trend BMP and BNP. Avoid use of metolazone at this point in time. Blood pressure is well optimized. Pulmonary optimization should be pursued. Prognosis is guarded. Will follow with you (3) Paroxysmal atrial fibrillation: Status: Acute remained suppressed. Continue to Pursue rhythm control approach at this point in time. continue full oral anticoagulation, currently on Eliquis 5 mg b.i.d.. (4) CAD (coronary artery disease): Problem details: KAREN to LCx for ACS,10/02. Status: Acute (5) COPD (chronic obstructive pulmonary disease): Qualifiers: COPD type: COPD with acute exacerbation Qualified Code(s): J44.1 - Chronic obstructive pulmonary disease with (acute) exacerbation Status: Acute
--- NOTE | 2020-07-29 11:16 | P.PNIM_ITS ---
Subjective Subjective Date of Service: 07/29/20 Interval History: Seen in f/u for heart failure exacerbation. Still with signs of fluid overload, sob ROS: Gen: no fever Resp: no sob, no cough CV: no chest, no HUMPHREYS, +leg edema GI: No n/v, no abd pain Neuro: No confusion Physical Exam Vital Signs: Vital Signs: Last Vital Signs Temp 97.8 F 07/29/20 07:39 Pulse 69 07/29/20 08:31 Resp 20 07/29/20 07:39 BP 125/62 07/29/20 08:31 Pulse Ox 96 07/29/20 07:39 Body Mass Index 71.1 Appearance: Alert. Oriented X3. No acute distress. Eyes: Pupils equal, round and reactive to light. ENT: Pharynx normal. Neck: Normal inspection. Neck supple. CVS: Normal heart rate and rhythm. Pulses normal. Respiratory: No respiratory distress. Breath sounds decreased with diffuse end exp wheezes Abdomen: Soft and nontender. Skin: Skin warm and dry. Normal skin color. Normal skin turgor. Extremities: pos bilateral lower extremity edema 2 to 3+. No calf ttp Neuro: Oriented X 3. No motor deficit. No sensory deficit. Objective Data Current Medications Generic Name Dose Route Start Last Admin Trade Name Freq PRN Reason Stop Dose Admin Acetaminophen 650 mg 07/28/20 18:37 Acetaminophen 325 Mg Tablet PO Q6H PRN Pain, Mild (Pain Scale 1-3) Albuterol Sulfate 2.5 mg 07/28/20 18:37 Albuterol Sulfate (0.083%) 2.5 Mg/3 Ml Vial.Neb INHALE Q4H PRN Shortness Of Breath Albuterol/Ipratropium 3 ml 07/28/20 20:00 07/29/20 11:10 Albuterol/Iprat 2.5/0.5mg 3 Ml Ampul.Neb INHALE 3 ml RQ4H WHILE AWAKE ROCKY Administration Amlodipine Besylate 5 mg 07/29/20 09:00 07/29/20 08:31 Amlodipine Besylate 5 Mg Tablet PO 5 mg DAILY ROCKY Administration Protocol Apixaban 5 mg 07/28/20 21:00 07/29/20 08:31 Apixaban 5 Mg Tablet PO 5 mg BID ROCKY Administration Atorvastatin Calcium 80 mg 07/29/20 09:00 07/29/20 08:30 Atorvastatin Calcium 80 Mg Tablet PO 80 mg DAILY ROCKY Administration Clopidogrel Bisulfate 75 mg 07/29/20 09:00 07/29/20 08:30 Clopidogrel Bisulfate 75 Mg Tablet PO 75 mg DAILY ROCKY Administration Furosemide 40 mg 07/28/20 18:37 07/29/20 08:30 Furosemide 40 Mg/4 Ml Vial IVPUSH 40 mg BID@0900,1800 ROCKY Administration Protocol Furosemide 100 mg/ Sodium 100 mls @ 5 mls/hr 07/29/20 11:15 Chloride IVCONT .Q20H ROCKY 5 MG/HR Insulin Human Lispro 0 unit 07/28/20 18:37 07/29/20 08:30 Insulin Lispro 100 Unit/Ml 3 Ml Vial SUBCUT 8 unit [facility]IDACHS [facility] Administration Protocol Isosorbide Mononitrate 60 mg 07/29/20 09:00 07/29/20 08:31 Isosorbide Mononitrate 60 Mg Tab.Er.24h PO 60 mg DAILY ROCKY Administration Protocol Melatonin 3 mg 07/28/20 18:37 Melatonin 3 Mg Tablet PO BEDTIME PRN Sleep Metoprolol Tartrate 75 mg 07/28/20 21:00 07/29/20 08:31 Metoprolol Tartrate 25 Mg Tablet PO 75 mg BID ROCKY Administration Protocol Olanzapine 15 mg 07/28/20 21:00 07/28/20 21:29 Olanzapine 7.5 Mg Tablet PO 15 mg BEDTIME ROCKY Administration Ondansetron HCl 4 mg 07/28/20 18:37 Ondansetron Hcl 4 Mg/2 Ml Vial IVPUSH Q8H PRN Nausea and Vomiting Pharmacy Consult 1 each 07/28/20 12:26 Consult Rx Perform Med Rec MISCELLANE ONCE PRN Consult order Sertraline HCl 200 mg 07/29/20 09:00 07/29/20 08:31 Sertraline Hcl 100 Mg Tablet PO 200 mg DAILY ROCKY Administration Sodium Chloride 3 ml 07/28/20 18:37 07/29/20 08:32 0.9 % Sodium Chloride Flush 3 Ml Syringe IVFLUSH 3 ml QSHIFT ROCKY Administration Trazodone HCl 200 mg 07/28/20 18:37 Trazodone Hcl 100 Mg Tablet PO BEDTIME PRN Sleep Labs CBC & Chem 7: 07/29/20 05:39 07/29/20 05:39 Assessment and Plan (1) Respiratory failure with hypoxia and hypercapnia: Status: Acute (2) Acute on chronic diastolic (congestive) heart failure: Status: Acute (3) Paroxysmal atrial fibrillation: Status: Acute (4) CAD (coronary artery disease): Problem details: KAREN to LCx for ACS,10/02. Status: Acute (5) COPD (chronic obstructive pulmonary disease): Status: Acute Assessment and Plan: 65/F with CHF here with exacerbation of heart failure . 1. Acute on chronic diastolic heart failure..remains fluid overloade -Change to IV Lasix drip -Abarca cath to record accurate i/o 2. Hyponatremia. Seems chronic, but lower than more recently. Nephrology to follow. Seems likely that she needs diuresis. We will start IV Lasix. Follow BMP closely. 3. Hyponatremia, better. 126 today. Nephrologogy consult 4. Anemia. Chronic. No signs of bleeding at this time. 5. Acute kidney injury on chronic kidney disease. Stable 6. Diabetes mellitus. Sliding scale, ADA diet. DC Metformin. consider lantus 7. History of atrial fibrillation. Stable heart rate. We will continue Eliquis and beta dustin. 8. Depression. Continue home medications. 9. History of coronary artery disease. Continue Plavix, statin, and beta dustin. 10. Deep vein thrombosis prophylaxis with Eliquis. 1
[2020-07-29 11:51] LABS: Glucose, Whole Blood 385 mg/dL (60-115)
[2020-07-29] MEDS: Furosemide 500 MG in Container,Empty 0 ML IVCONT (12:37)
--- NOTE | 2020-07-29 12:37 | P.CONNP_ITS ---
History of Present Illness Reason for Consult Consult date: 07/29/20 Reason for consult: HypoNa and pulm edema Chief Complaint Chief complaint: acute on chronic chf History of Present Illness Narrative: Seen and examined. EHR reveiwed. PT is a poor historian. [place] [facility] [place]. Now presnets againt with SOB and noted SNa 122. Admits to drinking too much PO fluids. PAST MEDICAL HISTORY: 1. Hypertension. 2. Coronary artery disease, status post PCI with stent in 2013. seen by Card 03/2020..w/u including TACOS revealed ques off severe MR and was going to be eval at [facility] [place] for ques percutatneous MV repair 3. Asthma. 4. Diabetes. 5. Depression. 6. Atrial fibrillation/atrial flutter, history of AVNRT. 7. GERD. 8. MOISÉS, noncompliant with CPAP. 9. Recurrent HypoNa 9. Hemooptysis: reoslved..NACA neg; ques amio toxicty vs CHD vs other Review of Systems Constitutional: Reports weakness Reports system reviewed and no additional complaints, except as documented and Reports weakness [facility] Past Medical History Medical History (Updated 07/29/20 @ 11:07 by Dominik Germain MD) CAD (coronary artery disease) CHF (congestive heart failure) Chronic pancreatitis COPD (chronic obstructive pulmonary disease) Degenerative arthritis of knee, bilateral Diverticulosis Dysuria Essential hypertension Hyperlipidemia LDL goal <70 Memory loss Morbid obesity due to excess calories Pulmonary embolism Respiratory failure with hypoxia and hypercapnia SVT (supraventricular tachycardia) Type 2 diabetes mellitus with diabetic polyneuropathy Vertigo Family History Family History Father CVD (cardiovascular disease) Mother No problems noted. Maternal Grandmother Diabetes Maternal Uncle Diabetes Maternal Aunt Diabetes Surgical History Surgical History Hx of cardiac catheterization Social History Social History Household Members: Children Housing: Apartment Alcohol intake: never Smoking Status: Former smoker Smoked in Last 30 Days: No Second Hand Smoke Exposure: No Use of substances other than those prescribed or required for medical reasons: No Currently Displaying Signs/Symptoms of Drug Intoxication Withdrawal: No Have you been hit, kicked, punched, or otherwise hurt by someone within the past year? If so, by whom?: No Is there a partner from a previous relationship who is making you feel unsafe now?: No Are you made to feel afraid or neglected: No Advance Directives: Yes Advance Directives on File: Yes Advance Directives Date on File: 11/30/19 Do you have thoughts of harming others: None Do you have a plan to hurt others: No Plan Recently lost weight without trying: No service: No Current occupational status: disabled Meds Allergies Allergy/AdvReac Type Severity Reaction Status Date / Time nitrofurantoin Allergy Intermediate SWELLING Verified 07/22/20 12:53 [From MACROBID] azithromycin [Azithromycin] Allergy Mild SWELLING Verified 07/22/20 12:53 Zithromax Allergy Unknown Swelling Uncoded 07/22/20 18:22 Home Medications Medication Instructions Recorded Confirmed Type Eliquis 5 mg PO BID 07/22/20 07/28/20 History Flovent HFA 1 puff INHALATION BID 07/22/20 07/28/20 History Incruse Ellipta 1 inh INHALATION DAILY 07/22/20 07/28/20 History acetaminophen 650 mg PO Q8H PRN 07/22/20 07/28/20 History albuterol sulfate 2.5 mg INHALATION Q4H PRN 07/22/20 07/28/20 History amlodipine [Norvasc] 5 mg PO DAILY 07/22/20 07/28/20 History atorvastatin 80 mg PO DAILY 07/22/20 07/28/20 History bumetanide 2 mg PO BID 07/22/20 07/28/20 History insulin aspart U-100 [Novolog See Protocol SUBCUT TID 07/22/20 07/28/20 History Flexpen U-100 Insulin] isosorbide mononitrate 60 mg PO DAILY 07/22/20 07/28/20 History melatonin 3 mg PO BEDTIME PRN 07/22/20 07/28/20 History metformin 1,000 mg PO DAILY 07/22/20 07/28/20 History metolazone 2.5 mg PO DAILY 07/22/20 07/28/20 History metoprolol tartrate 75 mg PO BID 07/22/20 07/28/20 History olanzapine [Zyprexa] 15 mg PO BEDTIME 07/22/20 07/28/20 History pantoprazole [Protonix] 20 mg PO DAILY 07/22/20 07/28/20 History potassium chloride [Klor-Con M20] 20 meq PO DAILY 07/22/20 07/28/20 History sertraline 200 mg PO DAILY 07/22/20 07/28/20 History spironolactone 50 mg PO DAILY 07/22/20 07/28/20 History trazodone 200 mg PO BEDTIME PRN 07/22/20 07/28/20 History clopidogrel 75 mg PO DAILY 07/28/20 07/28/20 History Physical Exam Vital Signs: Last Vital Signs Temp 97.8 F 07/29/20 11:19 Pulse 77 07/29/20 11:19 Resp 20 07/29/20 11:19 BP 141/65 H 07/29/20 11:19 Pulse Ox 93 07/29/20 11:19 Body Mass Index 71.1 Appearance: Alert. Oriented X3. No acute distress. Eyes: Pupils equal, round and reactive to light. ENT: Pharynx normal. Neck: Normal inspection. Neck supple. CVS: Normal heart rate and rhythm. Pulses normal. Respiratory: No respiratory distress. Breath sounds decreased with diffuse end exp wheezes Abdomen: Soft and nontender. Obese Skin: Skin warm and dry. Normal skin color. Normal skin turgor. Extremities: pos bilateral lower extremity edema 2 to 3+. No calf ttp Neuro: Oriented X 3. No motor deficit. No sensory deficit. Const General: no acute distress and lethargic Nutritional Appearance: obese morbidly obese Orientation/consciousness: lethargic Limitations: physical limitations [facility] Head: Yes normal to inspection, Yes normocephalic and Yes atraumatic Eyes General: appearance normal, both eyes and all related structures Neck Neck: Yes trachea midline and Yes other ( Difficult to evaluate JVD due to thick neck) Chest Chest palpation & inspection: normal inspection of the chest Resp Effort & Inspection: decreased respiratory effort Auscultation: crackles bilateral at the base and diminished lung sounds Cardio Palpation: other ( cannot assess PMI) Rate: regular rate Rhythm: regular rhythm Heart sounds: S1 normal heart sound present and S2 normal heart sound present GI Inspection: Yes Abdominal panniculus present and Yes obesity Auscultation: normal bowel sounds Skin General skin exam: no rashes or lesions noted Neuro General: no focal motor deficits Extrem General: Yes edema ( significant lower extremity edema bilaterally) Results Lab Results Result Diagrams: 07/29/20 05:39 07/29/20 05:39 Lab results: Chemistry 07/28/20 07/28/20 07/29/20 12:47 19:18 00:24 Sodium 122 L 123 L 123 L Potassium 5.3 H D 5.7 H 5.6 H Carbon Dioxide 32 H 35 H 30 H BUN 45 H 45 H 47 H Creatinine 1.79 H 1.79 H 1.74 H Calcium 8.1 L 8.1 L 7.8 L 07/29/20 05:39 Sodium 126 L Potassium 5.3 H Carbon Dioxide 36 H BUN 47 H Creatinine 1.71 H Calcium 8.3 L D Hematology 07/28/20 07/29/20 12:47 05:39 WBC 7.9 6.8 Hgb 9.8 L 10.4 L Plt Count 226 226 Assessment and Plan (1) Respiratory failure with hypoxia and hypercapnia: Status: Acute (2) Acute on chronic diastolic (congestive) heart failure: Status: Acute (3) Paroxysmal atrial fibrillation: Status: Acute (4) CAD (coronary artery disease): Problem details: KAREN to LCx for ACS,10/02. Status: Acute (5) COPD (chronic obstructive pulmonary disease): Qualifiers: COPD type: COPD with acute exacerbation Qualified Code(s): J44.1 - Chronic obstructive pulmonary disease with (acute) exacerbation Status: Acute 65/F with CHF here with exacerbation of heart failure, hypervol hypoNa, WANDA 1. Hypervol HypoNA: recurrent prob d/t excess PO fluid intake and being on thiazide like diuretic may be contributing hypperglycemia playing contributing role SNa grad incr past 24 hrs 2. WANDA: d/t CRS and card decomp ( type 1 CRS) vsother 3. HF recurrent: ques prog MV dis ( prior card TACOS references severe MR) 4. SOB: multiffact with CHF and COPD and ques underlying chrinic lung injury 5. Obesity 6. Hy0erK REC: agree with cont loop diuretics; avoid zarioxlyn fo rnowe; urine studies ( I will order); card re-eval of MR; restrict pO fluids to 1500/24 rhs and track SNa..avoid too apid incr SNa ( fgaol is no more than 8 meq/24 hrs) Will follow with team .
[2020-07-29] MEDS: Acetaminophen 325 MG TABLET 650 MG PO ×2 (12:42→22:21)
--- NOTE | 2020-07-29 12:48 | MHC.CM.PN ---
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 Patient does have a HCP, valery Escobar [phone], a copy is on file. Discussed discharge plan, patient is active with [facility] and [facility] services with [facility]. Referral made via [employer]scripts. CM will continue to follow patient for discharge needs.
[2020-07-29 13:16] LABS: Glucose Urine UA 250 MG/DL (NEG); Leukocyte Esterase Urine NEG (NEG); Nitrite Urine NEG (NEG); Urine Blood NEG (NEG); Urine Ketones NEG (NEG); Urine Protein NEG (NEG-TRACE)
[2020-07-29 13:19] LABS: Appearance Urine CLEAR; Color Urine YELLOW
[2020-07-29 13:35] LABS: RBC Urine 0 /HPF (0); Renal Epithelial Cells Urine TRACE /LPF; Squamous Epithelial Cell Urine TRACE /LPF; WBC Urine 0 /HPF (0-4)
[2020-07-29 13:39] LABS: Potassium Urine Random 20.7 mmol/l
[2020-07-29 15:17] LABS: Osmolality Urine 231 mosm/kg (373-1093)
[2020-07-29 16:11] LABS: Glucose, Whole Blood 363 mg/dL (60-115)
[2020-07-29 20:26] LABS: Glucose, Whole Blood 332 mg/dL (60-115)
[2020-07-29] MEDS: OLANZapine 7.5 MG TABLET 15 MG PO (21:26)
[2020-07-29] MEDS: Melatonin 3 MG TABLET PO (21:26)
[2020-07-29] MEDS: traZODone HCL 100 MG TABLET 200 MG PO (22:22)
[2020-07-29 22:51] LABS: Anion Gap 13 (12-20); Carbon Dioxide 38 mmol/L (22-29); Chloride 80 mmol/L (96-108); Potassium 4.6 mmol/l (3.3-5.1); Sodium 126 mmol/L (135-145)
[2020-07-30] VITALS (8 sets, daily range): BP systolic 95–147; BP diastolic 46–83; PULSE 61–77; RESP 18–20; TEMP 35.9–37.2; O2SAT 93–98; BMI 59.5
[2020-07-30] MEDS: 0.9 % Sodium Chloride Flush 3 ML SYRINGE IVFLUSH ×4 (00:49→20:23)
[2020-07-30 07:42] LABS: Glucose, Whole Blood 138 mg/dL (60-115)
[2020-07-30] MEDS: Albuterol/Iprat 2.5/0.5MG 3 ML AMPUL.NEB INHALE ×4 (07:43→20:29)
[2020-07-30] MEDS: Clopidogrel Bisulfate 75 MG TABLET PO (09:10)
[2020-07-30] MEDS: Atorvastatin Calcium 80 MG TABLET PO (09:10)
[2020-07-30] MEDS: Metoprolol Tartrate 25 MG TABLET 75 MG PO ×2 (09:10→20:22)
[2020-07-30] MEDS: Apixaban 5 MG TABLET PO ×2 (09:10→20:22)
[2020-07-30] MEDS: Isosorbide Mononitrate 60 MG TAB.ER.24H PO (09:10)
[2020-07-30] MEDS: amLODIPine Besylate 5 MG TABLET PO (09:10)
[2020-07-30] MEDS: Sertraline HCL 100 MG TABLET 200 MG PO (09:20)
[2020-07-30 09:29] LABS: Blood Urea Nitrogen 53 mg/dL (9-16); Calcium 8.3 mg/dL (8.4-10.2); Creatinine Clr Calc Pharmacy 54.5; Estimated Glomerular Filt Rate 32; Glucose Random 151 mg/dL (60-115)
[2020-07-30 09:37] LABS: Anion Gap 15 (12-20); Carbon Dioxide 32 mmol/L (22-29); Chloride 80 mmol/L (96-108); Potassium 4.3 mmol/l (3.3-5.1); Sodium 123 mmol/L (135-145)
[2020-07-30] MEDS: oxyCODONE HCl Immed Release 5 MG TABLET PO (11:04)
[2020-07-30 11:52] LABS: Glucose, Whole Blood 248 mg/dL (60-115)
[2020-07-30] MEDS: Insulin Lispro 100 UNIT/ML 3 ML VIAL SUBCUT ×3 (12:29→20:21)
--- NOTE | 2020-07-30 12:38 | HO.PM.IMPN ---
Subjective Subjective Date of Service: 07/30/20 Interval History: patient complaining of bilateral knee discomfort and shortness of breath, orthopnea denies chest pain, no cough, no fever chills. Review of Systems General no headache , no dizziness, no fever chills. CVS no chest pain, no palpitation. Respiratory no cough no sputum production Gastrointestinal no nausea, no vomiting, no abdominal pain Physical Exam Vital Signs: Vital Signs: Last Vital Signs Temp 97.9 F 07/30/20 11:47 Pulse 72 07/30/20 11:47 Resp 18 07/30/20 11:47 BP 95/72 07/30/20 11:47 Pulse Ox 94 07/30/20 11:47 Body Mass Index 59.5 General patient sitting up in bed, appears short of breath. Neck supple no JVD. CVS irregular Respiratory lungs diminished breath sound with basilar crackle, no wheeze, no rhonchi. Gastrointestinal abdomen soft, nontender, bowel sounds audible, no guarding , no rigidity. Extremities bilateral pitting edema. Neuro nonfocal . Skin no rash Objective Data Current Medications Generic Name Dose Route Start Last Admin Trade Name Freq PRN Reason Stop Dose Admin Acetaminophen 650 mg 07/28/20 18:37 07/29/20 22:21 Acetaminophen 325 Mg Tablet PO 650 mg Q6H PRN Administration Pain, Mild (Pain Scale 1-3) Albuterol Sulfate 2.5 mg 07/28/20 18:37 Albuterol Sulfate (0.083%) 2.5 Mg/3 Ml Vial.Neb INHALE Q4H PRN Shortness Of Breath Albuterol/Ipratropium 3 ml 07/28/20 20:00 07/30/20 11:23 Albuterol/Iprat 2.5/0.5mg 3 Ml Ampul.Neb INHALE 3 ml RQ4H WHILE AWAKE ROCKY Administration Amlodipine Besylate 5 mg 07/29/20 09:00 07/30/20 09:10 Amlodipine Besylate 5 Mg Tablet PO 5 mg DAILY ROCKY Administration Protocol Apixaban 5 mg 07/28/20 21:00 07/30/20 09:10 Apixaban 5 Mg Tablet PO 5 mg BID ROCKY Administration Atorvastatin Calcium 80 mg 07/29/20 09:00 07/30/20 09:10 Atorvastatin Calcium 80 Mg Tablet PO 80 mg DAILY ROCKY Administration Clopidogrel Bisulfate 75 mg 07/29/20 09:00 07/30/20 09:10 Clopidogrel Bisulfate 75 Mg Tablet PO 75 mg DAILY ROCKY Administration Furosemide 500 mg/ IV 50 mls @ 1 mls/hr 07/30/20 12:45 Miscellaneous Supplies IVCONT .Q24H ROCKY 10 MG/HR Insulin Human Lispro 0 unit 07/28/20 18:37 07/30/20 12:29 Insulin Lispro 100 Unit/Ml 3 Ml Vial SUBCUT 4 unit QIDACHS ROCKY Administration Protocol Isosorbide Mononitrate 60 mg 07/29/20 09:00 07/30/20 09:10 Isosorbide Mononitrate 60 Mg Tab.Er.24h PO 60 mg DAILY ROCKY Administration Protocol Melatonin 3 mg 07/28/20 18:37 07/29/20 21:26 Melatonin 3 Mg Tablet PO 3 mg BEDTIME PRN Administration Sleep Metoprolol Tartrate 75 mg 07/28/20 21:00 07/30/20 09:10 Metoprolol Tartrate 25 Mg Tablet PO 75 mg BID ROCKY Administration Protocol Olanzapine 15 mg 07/28/20 21:00 07/29/20 21:26 Olanzapine 7.5 Mg Tablet PO 15 mg BEDTIME ROCKY Administration Ondansetron HCl 4 mg 07/28/20 18:37 Ondansetron Hcl 4 Mg/2 Ml Vial IVPUSH Q8H PRN Nausea and Vomiting Oxycodone HCl 5 mg 07/30/20 09:45 07/30/20 11:04 Oxycodone Hcl Immed Release 5 Mg Tablet PO 5 mg Q6H PRN Administration Pain, Severe (Pain Scale 7-10) Pharmacy Consult 1 each 07/28/20 12:26 Consult Rx Perform Med Rec MISCELLANE ONCE PRN Consult order Sertraline HCl 200 mg 07/29/20 09:00 07/30/20 09:20 Sertraline Hcl 100 Mg Tablet PO 200 mg DAILY ROCKY Administration Sodium Chloride 3 ml 07/28/20 18:37 07/30/20 09:11 0.9 % Sodium Chloride Flush 3 Ml Syringe IVFLUSH 3 ml QSHIFT ROCKY Administration Trazodone HCl 200 mg 07/28/20 18:37 07/29/20 22:22 Trazodone Hcl 100 Mg Tablet PO 200 mg BEDTIME PRN Administration Sleep Labs CBC & Chem 7: 07/29/20 05:39 07/30/20 08:39 Microbiology Microbiology Results: Microbiology 07/28/20 14:20 Blood - Venous Blood Culture - Preliminary No growth after 24 hours. 07/28/20 14:14 Blood - Venous Blood Culture - Preliminary No growth after 24 hours. Assessment and Plan (1) Acute on chronic diastolic (congestive) heart failure: Status: Acute (2) Paroxysmal atrial fibrillation: Status: Acute (3) Type 2 diabetes mellitus with diabetic polyneuropathy: Status: Acute (4) Essential hypertension: Status: Acute (5) Degenerative arthritis of knee, bilateral: Status: Acute (6) Morbid obesity due to excess calories: Status: Acute (7) CAD (coronary artery disease): Problem details: KAREN to LCx for ACS,10/02. Status: Acute Assessment and Plan: 65/F with CHF here with exacerbation of heart failure . 1. Acute on chronic diastolic heart failure.. patient continue to have orthopnea and shortness of breath and significant edema last echocardiogram from October 2019 showed EF 60 65% with grade 2 diastolic dysfunction and severe mitral regurgitation will change IV Lasix drip from 5 mg to 10 mg and give additional dose of IV Lasix 80 mg follow urinary output and if it remains low will increase Lasix drip to 20 mg case discussed with cardiology Dr. Krishnamurthy and Dr. Barajas will follow BMP strict I's and O's and daily weight, will restrict by mouth fluid intake. 2. Hyponatremia. Seems chronic, And stable will restrict fluids and continue to diurese follow BMP closely 3. morbid obesity weight reduction recommended 4. Anemia. Chronic and stable. No signs of bleeding at this time. 5. Acute kidney injury on chronic kidney disease. creatinine trending down with diuresis follow BMP 6. Diabetes mellitus. blood sugar elevated in 200 range continue Sliding scale, ADA diet. metformin held due to renal failure will add low-dose Lantus 7. History of atrial fibrillation. Stable heart rate. continue Eliquis and beta dustin.. 8. Depression. Continue home medications. 9. History of coronary artery disease. Continue Plavix, statin, and beta dustin. 10. Chronic pain with bilateral in knee arthritis will add oxycodone 11. Deep vein thrombosis prophylaxis with Eliquis. 1
[2020-07-30] MEDS: Furosemide 100 MG/10 ML VIAL 80 MG IVPUSH (14:01)
[2020-07-30] MEDS: Furosemide 500 MG in Container,Empty 0 ML IVCONT (14:01)
--- NOTE | 2020-07-30 14:53 | MHC.CM.PN ---
DP Home with resumption of existing services. [facility]. Dtr Luz with provide transportation @ [place].
[2020-07-30 17:01] LABS: Glucose, Whole Blood 275 mg/dL (60-115)
[2020-07-30] MEDS: OLANZapine 7.5 MG TABLET 15 MG PO (20:22)
[2020-07-30 20:23] LABS: Glucose, Whole Blood 298 mg/dL (60-115)
--- NOTE | 2020-07-30 20:51 | PM.PNNEP ---
Subjective Subjective Principal diagnosis: HypoNa Interval history: Seen and examiend. Events noted Physical Exam Vital Signs: Vital Signs: Last Vital Signs Temp 96.6 F L 07/30/20 20:00 Pulse 74 07/30/20 20:22 Resp 18 07/30/20 20:00 BP 131/63 07/30/20 20:22 Pulse Ox 94 07/30/20 20:00 Body Mass Index 59.5 Appearance: Alert. Oriented X3. No acute distress. Eyes: Pupils equal, round and reactive to light. ENT: Pharynx normal. Neck: Normal inspection. Neck supple. CVS: Normal heart rate and rhythm. Pulses normal. Respiratory: No respiratory distress. Breath sounds decreased with diffuse end exp wheezes Abdomen: Soft and nontender. Obese Skin: Skin warm and dry. Normal skin color. Normal skin turgor. Extremities: pos bilateral lower extremity edema 2 to 3+. No calf ttp Neuro: Oriented X 3. No motor deficit. No sensory deficit. Const: General: no acute distress and lethargic Nutritional Appearance: obese morbidly obese Orientation/consciousness: lethargic Limitations: physical limitations HENMT: Head: Yes normal to inspection, Yes normocephalic and Yes atraumatic Eyes: General: appearance normal, both eyes and all related structures Neck: Neck: Yes trachea midline and Yes other ( Difficult to evaluate JVD due to thick neck) Chest: Chest palpation & inspection: normal inspection of the chest Resp: Effort & Inspection: decreased respiratory effort Auscultation: crackles bilateral at the base and diminished lung sounds Cardio: Palpation: other ( cannot assess PMI) Rate: regular rate Rhythm: regular rhythm Heart sounds: S1 normal heart sound present and S2 normal heart sound present GI: Inspection: Yes Abdominal panniculus present and Yes obesity Auscultation: normal bowel sounds Skin: General skin exam: no rashes or lesions noted Neuro: General: no focal motor deficits Extrem: General: Yes edema ( significant lower extremity edema bilaterally) Assessment & Plan Assessment and plan (1) Respiratory failure with hypoxia and hypercapnia: Status: Acute (2) Acute on chronic diastolic (congestive) heart failure: Status: Acute (3) Paroxysmal atrial fibrillation: Status: Acute (4) CAD (coronary artery disease): Problem details: KAREN to LCx for ACS,10/02. Status: Acute (5) COPD (chronic obstructive pulmonary disease): Status: Acute Assessment and Plan: 65/F with CHF here with exacerbation of heart failure, hypervol hypoNa, WANDA 1. Hypervol HypoNA: recurrent prob d/t excess PO fluid intake and being on thiazide like diuretic may be contributing hypperglycemia playing contributing role SNa decr this am 123 2. WANDA: d/t CRS and card decomp ( type 1 CRS) vsother 3. HF recurrent: ques prog MV dis ( prior card TACOS references severe MR) 4. SOB: multiffact with CHF and COPD and ques underlying chronic lung injury 5. Obesity 6. HyperK: resolved 7. TBFOL: diuresisng on loop diuretics REC: agree with cont loop diuretics; avoid zarioxlyn fo rnowe; ; card re-eval of MR; restrict pO fluids to 1500/24 rhs and track SNa at least q 12 hrs to avoid too apid incr SNa ( gaol is no more than 8 meq/24 hrs) Will follow with team . Time Spent With Patient Time: Total time spent is greater than 50% in coordination of care (as documented) at patient's floor/unit and/or counseling patient:
[2020-07-30 21:53] LABS: Anion Gap 16 (12-20); Carbon Dioxide 37 mmol/L (22-29); Chloride 80 mmol/L (96-108); Potassium 3.8 mmol/l (3.3-5.1); Sodium 129 mmol/L (135-145)
[2020-07-30] MEDS: traZODone HCL 100 MG TABLET 200 MG PO (23:10)
[2020-07-31 03:59] VITALS: BP 143/58; PULSE 85; RESP 20; TEMP 37; O2SAT 98
[2020-07-31 05:54] VITALS: BMI 57.4
[2020-07-31 07:13] LABS: Basophils Percent Auto 0.3 % (0-2); Eosinophils Percent Auto 0.6 % (0-4); Hematocrit 28.4 % (37-47); Hemoglobin 9.1 g/dl (12.0-16.0); Imm Gran Abs Auto 0.05 X10*3/uL (0.00-0.03); Imm Gran Pct Auto 0.7 % (0.0-0.4); Lymphocytes Absolute Auto 0.7 X10*3/uL (1.2-4.9); Lymphocytes Percent Auto 9.8 % (20-40); MANUAL DIFF FLAG SCAN; Mean Corpuscular Hemoglobin 27.4 pg (27.0-33.0); Mean Corpuscular Volume 85.5 fL (80-98); Mean Platelet Volume 9.1 fL (9.4-12.3); Monocytes Absolute Auto 0.6 X10*3/uL (0.1-1.2); Monocytes Percent Auto 9.5 % (2-11); Neutrophils Absolute Auto 5.4 X10*3/uL (2.0-8.3); Neutrophils Percent Auto 79.1 % (45-73); Platelet Count 200 X10*3/uL (160-400); Red Blood Count 3.32 X10*6/uL (4.20-5.50); Red Cell Distribution Width 15.1 % (11.0-16.0); SCAN SMEAR FLAG 1; White Blood Count 6.8 X10*3/uL (4.8-10.8)
[2020-07-31 07:23] LABS: Glucose, Whole Blood 295 mg/dL (60-115)
[2020-07-31] MEDS: Albuterol/Iprat 2.5/0.5MG 3 ML AMPUL.NEB INHALE ×4 (07:33→19:56)
[2020-07-31 07:45] VITALS: BP 114/81; PULSE 73; RESP 18; TEMP 36.7; O2SAT 93
[2020-07-31 07:54] LABS: Anion Gap 13 (12-20); Blood Urea Nitrogen 47 mg/dL (9-16); Calcium 8.1 mg/dL (8.4-10.2); Carbon Dioxide 38 mmol/L (22-29); Chloride 82 mmol/L (96-108); Creatinine Clr Calc Pharmacy 60.8; Estimated Glomerular Filt Rate 37; Glucose Random 345 mg/dL (60-115); Potassium 3.8 mmol/l (3.3-5.1); Sodium 129 mmol/L (135-145)
[2020-07-31 08:03] LABS: SLIDE REVIEW VERIFIED
[2020-07-31] MEDS: Insulin Lispro 100 UNIT/ML 3 ML VIAL SUBCUT ×4 (08:03→22:24)
[2020-07-31 08:04] VITALS: BP 114/81; PULSE 73
[2020-07-31] MEDS: amLODIPine Besylate 5 MG TABLET PO (08:04)
[2020-07-31] MEDS: Clopidogrel Bisulfate 75 MG TABLET PO (08:05)
[2020-07-31] MEDS: Metoprolol Tartrate 25 MG TABLET 75 MG PO ×2 (08:05→22:24)
[2020-07-31] MEDS: Isosorbide Mononitrate 60 MG TAB.ER.24H PO (08:05)
[2020-07-31] MEDS: Apixaban 5 MG TABLET PO ×2 (08:05→22:25)
[2020-07-31] MEDS: Atorvastatin Calcium 80 MG TABLET PO (08:05)
[2020-07-31] MEDS: Sertraline HCL 100 MG TABLET 200 MG PO (08:05)
[2020-07-31] MEDS: 0.9 % Sodium Chloride Flush 3 ML SYRINGE IVFLUSH ×2 (08:06→16:25)
[2020-07-31] MEDS: Acetaminophen 325 MG TABLET 650 MG PO (10:58)
[2020-07-31 11:11] LABS: Glucose, Whole Blood 363 mg/dL (60-115)
--- NOTE | 2020-07-31 11:11 | P.PNCA_ITS ---
Subjective Subjective Principal diagnosis: HypoNa Interval history: Seen and examiend. Events noted. patient has diuresed extremely well. Feeling better. Renal function is improved. CO2 has gone up consistent with contraction alkalosis. No episodes of atrial fibrillation Review of Systems Constitutional: Reports malaise, Reports snoring, Reports weakness and Reports weight loss Eyes: Reports no additional eye complaints Reports system reviewed and no additional complaints, except as documented Cardiovascular: Denies chest pain, Reports leg edema, Denies palpitations and Reports dyspnea Respiratory: Denies cough, Reports dyspnea and Reports snoring Gastrointestinal: Reports no additional gastrointestinal complaints Reports system reviewed and no additional complaints, except as documented and Reports weakness Endocrine: Denies palpitations Hematologic/Lymphatic: Reports no additional hematologic/lymphatic complaints Allergic/Immunologic: Reports no additional allergic/immunologic complaints Physical Exam Vital Signs: Last Vital Signs Temp 98.0 F 07/31/20 07:45 Pulse 73 07/31/20 08:04 Resp 18 07/31/20 07:45 BP 114/81 07/31/20 08:04 Pulse Ox 93 07/31/20 07:45 Body Mass Index 57.4 Const General: cooperative, comfortable, no acute distress, alert and awake Nutritional Appearance: obese morbidly obese Orientation/consciousness: patient oriented x3 HENMT Head: Yes normal to inspection, Yes normocephalic and Yes atraumatic Eyes General: appearance normal, both eyes and all related structures Neck Neck: Yes trachea midline, Yes supple and Yes other ( difficult to assess JVD) Chest Chest palpation & inspection: normal inspection of the chest Resp Effort & Inspection: decreased respiratory effort Auscultation: no crackles, no rales, no wheezes and diminished lung sounds Cardio Rate: regular rate Rhythm: regular rhythm Heart sounds: S1 normal heart sound present and S2 normal heart sound present GI Inspection: Yes Abdominal panniculus present and Yes obesity Auscultation: normal bowel sounds Skin General skin exam: elasticity normal Neuro General: patient oriented x3 Extrem General: Yes edema ( improving lower extremity edema) Psych Appearance: grossly normal Results Labs and Meds Result diagrams: 07/31/20 05:43 07/31/20 05:43 Lab results: Laboratory Results - last 24 hr 07/30/20 07/30/20 07/30/20 11:46 16:38 20:18 WBC RBC Hgb Hct MCV MCH MCHC RDW Plt Count MPV Immature Gran % (Auto) Neut % (Auto) Lymph % (Auto) Phillips % (Auto) Eos % (Auto) Baso % (Auto) Lymph # (Auto) Phillips # (Auto) Eos # (Auto) Baso # (Auto) Abs Immat Gran (auto) Absolute Neuts (auto) Absolute Nucleated RBC Nucleated RBC % (auto) Smear Tech's Comments Sodium Potassium Chloride Carbon Dioxide Anion Gap BUN Creatinine Estim Creat Clear Calc Estimated GFR POC Glucose 248 H 275 H 298 H Random Glucose Calcium 07/30/20 07/31/20 07/31/20 20:59 05:43 05:43 WBC 6.8 RBC 3.32 L Hgb 9.1 L Hct 28.4 L MCV 85.5 MCH 27.4 MCHC 32.0 RDW 15.1 Plt Count 200 MPV 9.1 L Immature Gran % (Auto) 0.7 H Neut % (Auto) 79.1 H Lymph % (Auto) 9.8 L Phillips % (Auto) 9.5 Eos % (Auto) 0.6 Baso % (Auto) 0.3 Lymph # (Auto) 0.7 L Phillips # (Auto) 0.6 Eos # (Auto) 0.0 Baso # (Auto) 0.0 Abs Immat Gran (auto) 0.05 H Absolute Neuts (auto) 5.4 Absolute Nucleated RBC 0.000 Nucleated RBC % (auto) 0.0 Smear Tech's Comments VERIFIED Sodium 129 L 129 L Potassium 3.8 3.8 Chloride 80 L 82 L Carbon Dioxide 37 H 38 H Anion Gap 16 13 BUN 47 H Creatinine 1.42 H Estim Creat Clear Calc 60.8 Estimated GFR 37 POC Glucose Random Glucose 345 H D Calcium 8.1 L 07/31/20 07:15 WBC RBC Hgb Hct MCV MCH MCHC RDW Plt Count MPV Immature Gran % (Auto) Neut % (Auto) Lymph % (Auto) Phillips % (Auto) Eos % (Auto) Baso % (Auto) Lymph # (Auto) Phillips # (Auto) Eos # (Auto) Baso # (Auto) Abs Immat Gran (auto) Absolute Neuts (auto) Absolute Nucleated RBC Nucleated RBC % (auto) Smear Tech's Comments Sodium Potassium Chloride Carbon Dioxide Anion Gap BUN Creatinine Estim Creat Clear Calc Estimated GFR POC Glucose 295 H Random Glucose Calcium Progress Note: A&P Assessment and plan (1) Respiratory failure with hypoxia and hypercapnia: Status: Acute Assessment and Plan: respiratory failure secondary to Pickwickian syndrome and limited respiratory capacity as well as underlying COPD and heart failure. Clinically doing better. Has diuresed well, see below. Consider pulmonary consultation as well. Should also requires sleep study and treatment for the same most likely with BiPAP. This should be pursued aggressively as outpatient. (2) Acute on chronic diastolic (congestive) heart failure: Status: Acute Assessment and Plan: Has diuresed well with a negative balance of total tele L. Creatinine is improving consistent with improvement in renal vascular congestion. Continue IV diuresis with Lasix. Add Diamox as prescribed hospitalist team. Continue strict I&Os. Out of bed to chair today. Physical therapy consult and may need short-term custodial facility evaluation for rehabilitation. Continue management of COPD. Continue rhythm control approach. Will sign of the case at current time. Please re-consult if needed thank you for allowing us to partake in the care (3) Paroxysmal atrial fibrillation: Status: Acute Assessment and Plan: Has remained suppressed. Continue oral anticoagulation therapy. Continue a ggressively rhythm control approach. Fall Risk Details Current Medications: Current Medications Generic Name Dose Route Start Last Admin Trade Name Freq PRN Reason Stop Dose Admin Acetaminophen 650 mg 07/28/20 18:37 07/31/20 10:58 Acetaminophen 325 Mg Tablet PO 650 mg Q6H PRN Administration Pain, Mild (Pain Scale 1-3) Albuterol Sulfate 2.5 mg 07/28/20 18:37 Albuterol Sulfate (0.083%) 2.5 Mg/3 Ml Vial.Neb INHALE Q4H PRN Shortness Of Breath Albuterol/Ipratropium 3 ml 07/28/20 20:00 07/31/20 07:33 Albuterol/Iprat 2.5/0.5mg 3 Ml Ampul.Neb INHALE 3 ml RQ4H WHILE AWAKE ROCKY Administration Amlodipine Besylate 5 mg 07/29/20 09:00 07/31/20 08:04 Amlodipine Besylate 5 Mg Tablet PO 5 mg DAILY ROCKY Administration Protocol Apixaban 5 mg 07/28/20 21:00 07/31/20 08:05 Apixaban 5 Mg Tablet PO 5 mg BID ROCKY Administration Atorvastatin Calcium 80 mg 07/29/20 09:00 07/31/20 08:05 Atorvastatin Calcium 80 Mg Tablet PO 80 mg DAILY ROCKY Administration Clopidogrel Bisulfate 75 mg 07/29/20 09:00 07/31/20 08:05 Clopidogrel Bisulfate 75 Mg Tablet PO 75 mg DAILY ROCKY Administration Insulin Human Lispro 0 unit 07/28/20 18:37 07/31/20 08:03 Insulin Lispro 100 Unit/Ml 3 Ml Vial SUBCUT 6 unit QIDACHS ROCKY Administration Protocol Isosorbide Mononitrate 60 mg 07/29/20 09:00 07/31/20 08:05 Isosorbide Mononitrate 60 Mg Tab.Er.24h PO 60 mg DAILY ROCKY Administration Protocol Melatonin 3 mg 07/28/20 18:37 07/29/20 21:26 Melatonin 3 Mg Tablet PO 3 mg BEDTIME PRN Administration Sleep Metoprolol Tartrate 75 mg 07/28/20 21:00 07/31/20 08:05 Metoprolol Tartrate 25 Mg Tablet PO 75 mg BID ROCKY Administration Protocol Olanzapine 15 mg 07/28/20 21:00 07/30/20 20:22 Olanzapine 7.5 Mg Tablet PO 15 mg BEDTIME ROCKY Administration Ondansetron HCl 4 mg 07/28/20 18:37 Ondansetron Hcl 4 Mg/2 Ml Vial IVPUSH Q8H PRN Nausea and Vomiting Oxycodone HCl 5 mg 07/30/20 09:45 07/30/20 11:04 Oxycodone Hcl Immed Release 5 Mg Tablet PO 5 mg Q6H PRN Administration Pain, Severe (Pain Scale 7-10) Pharmacy Consult 1 each 07/28/20 12:26 Consult Rx Perform Med Rec MISCELLANE ONCE PRN Consult order Sertraline HCl 200 mg 07/29/20 09:00 07/31/20 08:05 Sertraline Hcl 100 Mg Tablet PO 200 mg DAILY ROCKY Administration Sodium Chloride 3 ml 07/28/20 18:37 07/31/20 08:06 0.9 % Sodium Chloride Flush 3 Ml Syringe IVFLUSH 3 ml QSHIFT ROCKY Administration Trazodone HCl 200 mg 07/28/20 18:37 07/30/20 23:10 Trazodone Hcl 100 Mg Tablet PO 200 mg BEDTIME PRN Administration Sleep Time Spent With Patient Time: Total time spent is greater than 50% in coordination of care (as documented) at patient's floor/unit and/or counseling patient: Time with patient: 15 - 24 minutes Procedures Abscess I/D Date of Service: 07/31/20
[2020-07-31 11:23] VITALS: BP 126/57; PULSE 79; RESP 20; TEMP 36.4; O2SAT 95
--- NOTE | 2020-07-31 11:49 | HO.PM.IMPN ---
Subjective Subjective Date of Service: 07/31/20 Interval History: patient feels better this a.m. no shortness of breath, no chest pain complaining of mild frontal headache, blood sugars in 300s. Review of Systems General Complaining of frontal headache, no dizziness no fever chills. CVS no chest pain, no palpitation. Respiratory no cough, no shortness of breath Gastrointestinal no nausea, no vomiting, no abdominal pain Physical Exam Vital Signs: Vital Signs: Last Vital Signs Temp 97.6 F 07/31/20 11: Pulse 79 07/31/20 11:23 Resp 20 07/31/20 11:23 BP 126/57 L 07/31/20 11:23 Pulse Ox 95 07/31/20 11:23 Body Mass Index 57.4 General patient sitting up in bed, appears short of breath. Neck supple no JVD. CVS irregular Respiratory lungs clear to auscultation, no wheeze, no rhonchi. Gastrointestinal abdomen soft, nontender, bowel sounds audible, no guarding , no rigidity. Extremities bilateral pitting edema significantly improved. Neuro nonfocal . Skin no rash Objective Data Current Medications Generic Name Dose Route Start Last Admin Trade Name Freq PRN Reason Stop Dose Admin Acetaminophen 650 mg 07/28/20 18:37 07/31/20 10:58 Acetaminophen 325 Mg Tablet PO 650 mg Q6H PRN Administration Pain, Mild (Pain Scale 1-3) Albuterol Sulfate 2.5 mg 07/28/20 18:37 Albuterol Sulfate (0.083%) 2.5 Mg/3 Ml Vial.Neb INHALE Q4H PRN Shortness Of Breath Albuterol/Ipratropium 3 ml 07/28/20 20:00 07/31/20 11:15 Albuterol/Iprat 2.5/0.5mg 3 Ml Ampul.Neb INHALE 3 ml RQ4H WHILE AWAKE ROCKY Administration Amlodipine Besylate 5 mg 07/29/20 09:00 07/31/20 08:04 Amlodipine Besylate 5 Mg Tablet PO 5 mg DAILY ROCKY Administration Protocol Apixaban 5 mg 07/28/20 21:00 07/31/20 08:05 Apixaban 5 Mg Tablet PO 5 mg BID ROCKY Administration Atorvastatin Calcium 80 mg 07/29/20 09:00 07/31/20 08:05 Atorvastatin Calcium 80 Mg Tablet PO 80 mg DAILY ROCKY Administration Clopidogrel Bisulfate 75 mg 07/29/20 09:00 07/31/20 08:05 Clopidogrel Bisulfate 75 Mg Tablet PO 75 mg DAILY ROCKY Administration Insulin Human Lispro 0 unit 07/28/20 18:37 07/31/20 11:44 Insulin Lispro 100 Unit/Ml 3 Ml Vial SUBCUT 10 unit QIDACHS ROCKY Administration Protocol Isosorbide Mononitrate 60 mg 07/29/20 09:00 07/31/20 08:05 Isosorbide Mononitrate 60 Mg Tab.Er.24h PO 60 mg DAILY ROCKY Administration Protocol Melatonin 3 mg 07/28/20 18:37 07/29/20 21:26 Melatonin 3 Mg Tablet PO 3 mg BEDTIME PRN Administration Sleep Metoprolol Tartrate 75 mg 07/28/20 21:00 07/31/20 08:05 Metoprolol Tartrate 25 Mg Tablet PO 75 mg BID ROCKY Administration Protocol Olanzapine 15 mg 07/28/20 21:00 07/30/20 20:22 Olanzapine 7.5 Mg Tablet PO 15 mg BEDTIME ROCKY Administration Ondansetron HCl 4 mg 07/28/20 18:37 Ondansetron Hcl 4 Mg/2 Ml Vial IVPUSH Q8H PRN Nausea and Vomiting Oxycodone HCl 5 mg 07/30/20 09:45 07/30/20 11:04 Oxycodone Hcl Immed Release 5 Mg Tablet PO 5 mg Q6H PRN Administration Pain, Severe (Pain Scale 7-10) Pharmacy Consult 1 each 07/28/20 12:26 Consult Rx Perform Med Rec MISCELLANE ONCE PRN Consult order Sertraline HCl 200 mg 07/29/20 09:00 07/31/20 08:05 Sertraline Hcl 100 Mg Tablet PO 200 mg DAILY ROCKY Administration Sodium Chloride 3 ml 07/28/20 18:37 07/31/20 08:06 0.9 % Sodium Chloride Flush 3 Ml Syringe IVFLUSH 3 ml QSHIFT [facility] Administration Trazodone HCl 200 mg 07/28/20 18:37 07/30/20 23:10 Trazodone Hcl 100 Mg Tablet PO 200 mg BEDTIME PRN Administration Sleep Labs CBC & Chem 7: 07/31/20 05:43 07/31/20 05:43 Microbiology Microbiology Results: Microbiology 07/28/20 14:20 Blood - Venous Blood Culture - Preliminary No growth after 48 hours. 11/09/20 14:14 Blood - Venous Blood Culture - Preliminary No growth after 48 hours. Assessment and Plan (1) Acute on chronic diastolic (congestive) heart failure: Status: Acute (2) Paroxysmal atrial fibrillation: Status: Acute (3) Type 2 diabetes mellitus with diabetic polyneuropathy: Status: Acute (4) Essential hypertension: Status: Acute (5) Degenerative arthritis of knee, bilateral: Status: Acute (6) Morbid obesity due to excess calories: Status: Acute (7) CAD (coronary artery disease): Problem details: KAREN to LCx for ACS,10/02. Status: Acute Assessment and Plan: 65/F with CHF here with exacerbation of heart failure . 1. Acute on chronic diastolic heart failure.. patient feels significantly better is 10 L negative since admission creatinine improved to 1.4, able to lie flat significant improvement and bilateral lower extremity edema echocardiogram from October 2019 showed EF 60 65% with grade 2 diastolic dysfunction and severe mitral regurgitation will continue IV Lasix drip 10 mg 1 more day, and switched to by mouth Lasix tomorrow morning, case discussed with Dr. Barajas and Dr. Krishnamurthy will follow BMP closely due to elevated bicarb will add Diamox 250 mg t.i.d., continue fluid restriction 2. Hyponatremia. Seems chronic, And stable will restrict fluids and continue to diurese follow BMP closely 3. morbid obesity weight reduction recommended. 4. Anemia. Chronic and stable. No signs of bleeding at this time. 5. Acute kidney injury on chronic kidney disease. creatinine trending down with diuresis follow BMP 6. Diabetes mellitus. blood sugar elevated in 300 range continue Sliding scale, ADA diet. metformin held due to renal failure will add Lantus 7. History of atrial fibrillation. Stable heart rate. continue Eliquis and beta dustin.. 8. Depression. Continue home medications. 9. History of coronary artery disease. Continue Plavix, statin, and beta dustin. 10. Chronic pain with bilateral in knee arthritis cont. oxycodone 11. Deep vein thrombosis prophylaxis with Eliquis.
--- NOTE | 2020-07-31 11:58 | PM.PNNEP ---
Subjective Subjective Principal diagnosis: HypoNa Interval history: Seen and exmiend. Events noted Physical Exam Vital Signs: Vital Signs: Last Vital Signs Temp 97.6 F 07/31/20 11:23 Pulse 79 07/31/20 11:23 Resp 20 07/31/20 11:23 BP 126/57 L 07/31/20 11:23 Pulse Ox 95 07/31/20 11:23 Body Mass Index 57.4 Appearance: Alert. Oriented X3. No acute distress. Eyes: Pupils equal, round and reactive to light. ENT: Pharynx normal. Neck: Normal inspection. Neck supple. CVS: Normal heart rate and rhythm. Pulses normal. Respiratory: No respiratory distress. Breath sounds decreased with diffuse end exp wheezes Abdomen: Soft and nontender. Obese Skin: Skin warm and dry. Normal skin color. Normal skin turgor. Extremities: pos bilateral lower extremity edema 2 to 3+. No calf ttp Neuro: Oriented X 3. No motor deficit. No sensory deficit. Const: General: no acute distress and lethargic Nutritional Appearance: obese morbidly obese Orientation/consciousness: lethargic Limitations: physical limitations HENMT: Head: Yes normal to inspection, Yes normocephalic and Yes atraumatic Eyes: General: appearance normal, both eyes and all related structures Neck: Neck: Yes trachea midline and Yes other ( Difficult to evaluate JVD due to thick neck) Chest: Chest palpation & inspection: normal inspection of the chest Resp: Effort & Inspection: decreased respiratory effort Auscultation: crackles bilateral at the base and diminished lung sounds Cardio: Palpation: other ( cannot assess PMI) Rate: regular rate Rhythm: regular rhythm Heart sounds: S1 normal heart sound present and S2 normal heart sound present GI: Inspection: Yes Abdominal panniculus present and Yes obesity Auscultation: normal bowel sounds Skin: General skin exam: no rashes or lesions noted Neuro: General: no focal motor deficits Extrem: General: Yes edema ( significant lower extremity edema bilaterally) Assessment & Plan Assessment and plan (1) Respiratory failure with hypoxia and hypercapnia: Status: Acute (2) Acute on chronic diastolic (congestive) heart failure: Status: Acute (3) Paroxysmal atrial fibrillation: Status: Acute (4) CAD (coronary artery disease): Problem details: KAREN to LCx for ACS,10/02. Status: Acute (5) COPD (chronic obstructive pulmonary disease): Status: Acute Assessment and Plan: 65/F with CHF here with exacerbation of heart failure, hypervol hypoNa, WANDA 1. Hypervol HypoNA: SNA grad incr to now 129 recurrent prob d/t excess PO fluid intake and being on thiazide like diuretic may be contributing hypperglycemia playing contributing role 2. WANDA: d/t CRS with steady renal impprovemet with decongestive of volume overload 3. HF recurrent: ques prog MV dis ( prior card TACOS references severe MR) 4. SOB: imporoving; multiffact with CHF and COPD and ques underlying chronic lung injury 5. Obesity 6. HyperK: resolved 7. TBFOL: excellent diuresis on loop diuretic drip 8. Incr HCO3 REC: r/s loop diuretics; diamox x 3 doses with goal HCO3 35- 40 ; card re-eval of MR; restrict pO fluids to 1500/24 rhs; frias part of her care ois how to prevent recurrent fluid gains whn out of hosp Will follow with team . Time Spent With Patient Time: Total time spent is greater than 50% in coordination of care (as documented) at patient's floor/unit and/or counseling patient: Procedures Abscess I/D Date of Service: 07/31/20
[2020-07-31] MEDS: Furosemide 500 MG in Container,Empty 0 ML IVCONT (13:06)
--- NOTE | 2020-07-31 13:28 | MHC.CM.PN ---
HARDY sppoke with dtr /HCP Luz and updated her patient continues on Lasix gtt. Instructed patient wants to go to [facility], will do PT eval once able to amb without IV's. Dtr states patient has been to [facility] x 2 and would like to see her go back there. Referral made per HCP request.
[2020-07-31] MEDS: acetaZOLAMIDE 250 MG TABLET PO ×2 (14:28→22:25)
[2020-07-31 15:22] VITALS: BP 125/67; PULSE 79; RESP 18; TEMP 36.4; O2SAT 94
[2020-07-31 16:24] LABS: Glucose, Whole Blood 322 mg/dL (60-115)
[2020-07-31 19:54] VITALS: BP 151/65; PULSE 78; RESP 20; TEMP 36.2; O2SAT 95
[2020-07-31 21:34] LABS: Glucose, Whole Blood 274 mg/dL (60-115)
[2020-07-31] MEDS: Insulin Glargine,Hum.rec.anlog 100 UNIT/ML 10 ML VIAL 15 UNIT SUBCUT (22:23)
[2020-07-31] MEDS: oxyCODONE HCl Immed Release 5 MG TABLET PO (22:24)
[2020-07-31] MEDS: OLANZapine 7.5 MG TABLET 15 MG PO (22:25)
[2020-08-01] VITALS (15 sets, daily range): BP systolic 122–141; BP diastolic 57–69; PULSE 62–80; RESP 15–20; TEMP 36.1–37; O2SAT 84–99; BMI 56.8
[2020-08-01] MEDS: 0.9 % Sodium Chloride Flush 3 ML SYRINGE IVFLUSH ×4 (01:32→20:37)
--- NOTE | 2020-08-01 04:25 | PC.NURSE ---
Upon initial assessment, patient has oxygen off. O2 sat at that time 83% on RA. 2 lt NC reapplied. O2 sat up to 94% on 2lt. Will monitor.
[2020-08-01 07:17] LABS: Blood Urea Nitrogen 40 mg/dL (9-16); Calcium 8.3 mg/dL (8.4-10.2); Creatinine Clr Calc Pharmacy 67.5; Estimated Glomerular Filt Rate 42; Glucose Random 327 mg/dL (60-115)
[2020-08-01 07:30] LABS: Anion Gap 14 (12-20); Carbon Dioxide 37 mmol/L (22-29); Chloride 86 mmol/L (96-108); Potassium 3.5 mmol/l (3.3-5.1); Sodium 133 mmol/L (135-145)
[2020-08-01 07:50] LABS: Glucose, Whole Blood 290 mg/dL (60-115)
[2020-08-01] MEDS: Albuterol/Iprat 2.5/0.5MG 3 ML AMPUL.NEB INHALE ×4 (08:27→19:51)
[2020-08-01] MEDS: Insulin Lispro 100 UNIT/ML 3 ML VIAL SUBCUT ×4 (09:50→20:36)
[2020-08-01] MEDS: Metoprolol Tartrate 25 MG TABLET 75 MG PO ×2 (09:51→20:35)
[2020-08-01] MEDS: Clopidogrel Bisulfate 75 MG TABLET PO (09:51)
[2020-08-01] MEDS: Sertraline HCL 100 MG TABLET 200 MG PO (09:51)
[2020-08-01] MEDS: Atorvastatin Calcium 80 MG TABLET PO (09:52)
[2020-08-01] MEDS: Isosorbide Mononitrate 60 MG TAB.ER.24H PO (09:52)
[2020-08-01] MEDS: amLODIPine Besylate 5 MG TABLET PO (09:52)
[2020-08-01] MEDS: Apixaban 5 MG TABLET PO ×2 (09:52→20:35)
--- NOTE | 2020-08-01 11:39 | P.PNCA_ITS ---
Subjective Subjective Principal diagnosis: HypoNa Interval history: Seen and exmiend. Events noted. no atrial fibrillation. Has overall diuresed about 13 L. complains of cough productive of phlegm. Shortness of breath is improved. Review of Systems Constitutional: Reports no additional constitutional complaints and Reports weakness Cardiovascular: Reports chest pain, Reports rapid heart rate, Reports lightheadedness, Reports Loss of Consciousness and Reports dyspnea Respiratory: Reports excessive phlegm production and Reports dyspnea Gastrointestinal: Reports no additional gastrointestinal complaints Reports system reviewed and no additional complaints, except as documented and Reports weakness Endocrine: Reports no additional endocrine complaints Hematologic/Lymphatic: Reports no additional hematologic/lymphatic complaints Physical Exam Vital Signs: Last Vital Signs Temp 98.2 F 08/01/20 08:00 Pulse 78 08/01/20 09:52 Resp 20 08/01/20 08:00 BP 123/57 L 08/01/20 09:52 Pulse Ox 92 08/01/20 09:14 Body Mass Index 56.8 Const General: comfortable, no acute distress, alert and awake Nutritional Appearance: obese morbidly obese Orientation/consciousness: patient oriented x3 HENMT Head: Yes normocephalic and Yes atraumatic Eyes General: appearance normal, both eyes and all related structures Neck Neck: Yes other ( difficult to assess JVD) Chest Chest palpation & inspection: normal inspection of the chest Resp Effort & Inspection: decreased respiratory effort Auscultation: no crackles, no rales and diminished lung sounds Cardio Rate: regular rate Rhythm: regular rhythm Heart sounds: S1 normal heart sound present and S2 normal heart sound present GI Inspection: Yes Abdominal panniculus present and Yes obesity Auscultation: normal bowel sounds Neuro General: patient oriented x3 Extrem General: Yes edema Psych Appearance: grossly normal Results Labs and Meds Result diagrams: 07/31/20 05:43 08/01/20 05:49 Lab results: Laboratory Results - last 24 hr 07/31/20 07/31/20 08/01/20 16:09 21:22 05:49 Sodium 133 L Potassium 3.5 Chloride 86 L Carbon Dioxide 37 H Anion Gap 14 BUN 40 H Creatinine 1.27 Estim Creat Clear Calc 67.5 Estimated GFR 42 POC Glucose 322 H 274 H Random Glucose 327 H Calcium 8.3 L 08/01/20 07:46 Sodium Potassium Chloride Carbon Dioxide Anion Gap BUN Creatinine Estim Creat Clear Calc Estimated GFR POC Glucose 290 H Random Glucose Calcium Progress Note: A&P Assessment and plan (1) Respiratory failure with hypoxia and hypercapnia: Status: Acute Assessment and Plan: persistent hypoxemia at rest. Will most likely require permanent oxygen supplementation therapy. Will also most likely need BiPAP therapy at nighttime with sleep. Pulmonary consultation should be pursued (2) Acute on chronic diastolic (congestive) heart failure: Status: Acute Assessment and Plan: diastolic heart failure on addition to underlying COPD and hypoxemic hypercapnic respiratory failure 2nd to morbid obesity and Pickwickian syndrome. Has diuresed very well over the last few days with total negative balance of about 13 L. Can switch to oral Bumex 2 mg b.i.d.. Also agree with Aldactone therapy. P.r.n. metolazone at home for weight gain in a day was discussed with the patient. Patient planned to be discharged to snf facility for rehab. Will follow as outpatient (3) COPD (chronic obstructive pulmonary disease): Status: Acute (4) Paroxysmal atrial fibrillation: Status: Acute Assessment and Plan: Has remained controlled. Continue rhythm control approach. Continue full oral anticoagulation, currently on Eliquis 5 mg b.i.d.. There is no clear indication to me at current time with Plavix. This can be discontinued. Fall Risk Details Current Medications: Current Medications Generic Name Dose Route Start Last Admin Trade Name Freq PRN Reason Stop Dose Admin Acetaminophen 650 mg 07/28/20 18:37 07/31/20 10:58 Acetaminophen 325 Mg Tablet PO 650 mg Q6H PRN Administration Pain, Mild (Pain Scale 1-3) Albuterol Sulfate 2.5 mg 07/28/20 18:37 Albuterol Sulfate (0.083%) 2.5 Mg/3 Ml Vial.Neb INHALE Q4H PRN Shortness Of Breath Albuterol/Ipratropium 3 ml 07/28/20 20:00 08/01/20 08:27 Albuterol/Iprat 2.5/0.5mg 3 Ml Ampul.Neb INHALE 3 ml RQ4H WHILE AWAKE ROCKY Administration Amlodipine Besylate 5 mg 07/29/20 09:00 08/01/20 09:52 Amlodipine Besylate 5 Mg Tablet PO 5 mg DAILY ROCKY Administration Protocol Apixaban 5 mg 07/28/20 21:00 08/01/20 09:52 Apixaban 5 Mg Tablet PO 5 mg BID ROCKY Administration Atorvastatin Calcium 80 mg 07/29/20 09:00 08/01/20 09:52 Atorvastatin Calcium 80 Mg Tablet PO 80 mg DAILY ROCKY Administration Clopidogrel Bisulfate 75 mg 07/29/20 09:00 08/01/20 09:51 Clopidogrel Bisulfate 75 Mg Tablet PO 75 mg DAILY ROCKY Administration Furosemide 500 mg/ IV 50 mls @ 1 mls/hr 07/31/20 12:00 07/31/20 13:06 Miscellaneous Supplies IVCONT 10 mg/hr .Q24H ROCKY 1 mls/hr Administration 10 MG/HR Insulin Glargine 15 unit 07/31/20 21:00 07/31/20 22:23 Insulin Glargine,Hum.Rec.Anlog 100 Unit/Ml 10 Ml Vial SUBCUT 15 unit BEDTIME ROCKY Administration Insulin Human Lispro 0 unit 07/28/20 18:37 08/01/20 09:50 Insulin Lispro 100 Unit/Ml 3 Ml Vial SUBCUT 6 unit QIDACHS [facility] Administration Protocol Isosorbide Mononitrate 60 mg 07/29/20 09:00 08/01/20 09:52 Isosorbide Mononitrate 60 Mg Tab.Er.24h PO 60 mg DAILY ROCKY Administration Protocol Melatonin 3 mg 07/28/20 18:37 07/29/20 21:26 Melatonin 3 Mg Tablet PO 3 mg BEDTIME PRN Administration Sleep Metoprolol Tartrate 75 mg 07/28/20 21:00 08/01/20 09:51 Metoprolol Tartrate 25 Mg Tablet PO 75 mg BID ROCKY Administration Protocol Olanzapine 15 mg 07/28/20 21:00 07/31/20 22:25 Olanzapine 7.5 Mg Tablet PO 15 mg BEDTIME ROCKY Administration Ondansetron HCl 4 mg 07/28/20 18:37 Ondansetron Hcl 4 Mg/2 Ml Vial IVPUSH Q8H PRN Nausea and Vomiting Oxycodone HCl 5 mg 07/30/20 09:45 07/31/20 22:24 Oxycodone Hcl Immed Release 5 Mg Tablet PO 5 mg Q6H PRN Administration Pain, Severe (Pain Scale 7-10) Pharmacy Consult 1 each 07/28/20 12:26 Consult Rx Perform Med Rec MISCELLANE ONCE PRN Consult order Sertraline HCl 200 mg 07/29/20 09:00 08/01/20 09:51 Sertraline Hcl 100 Mg Tablet PO 200 mg DAILY ROCKY Administration Sodium Chloride 3 ml 07/28/20 18:37 08/01/20 09:50 0.9 % Sodium Chloride Flush 3 Ml Syringe IVFLUSH 3 ml QSHIFT ROCKY Administration Trazodone HCl 200 mg 07/28/20 18:37 07/30/20 23:10 Trazodone Hcl 100 Mg Tablet PO 200 mg BEDTIME PRN Administration Sleep Time Spent With Patient Time: Total time spent is greater than 50% in coordination of care (as documented) at patient's floor/unit and/or counseling patient: Time with patient: 15 - 24 minutes Procedures Abscess I/D Date of Service: 08/01/20
[2020-08-01 11:41] LABS: Glucose, Whole Blood 412 mg/dL (60-115)
[2020-08-01] MEDS: Insulin Lispro 100 UNIT/ML 3 ML VIAL 6 UNIT SUBCUT (12:43)
--- NOTE | 2020-08-01 13:27 | HO.PM.IMPN ---
Subjective Subjective Date of Service: 08/01/20 Interval History: patient feels better denies shortness of breath leg edema has significantly improved but patient noted to be sleepy during daytime, patient not on home oxygen, here requiring 2-3 L of oxygen since O2 dropped to mid 80s with walking patient prior ABGs showed elevated pCO2 , no prior diagnosis of sleep apnea. Review of Systems General no headache, no dizziness ,no fever chills. CVS no chest pain, no palpitation. Respiratory no cough, no shortness of breath Gastrointestinal no nausea, no vomiting, no abdominal pain Physical Exam Vital Signs: Vital Signs: Last Vital Signs Temp 98.0 F 08/01/20 12:00 Pulse 74 08/01/20 12:00 Resp 20 08/01/20 12:00 BP 139/67 08/01/20 12:00 Pulse Ox 98 08/01/20 12:00 Body Mass Index 56.8 General patient sitting up in chair somnolent but arousable. Neck supple no JVD. CVS irregular Respiratory lungs clear to auscultation, no wheeze, no rhonchi. Gastrointestinal abdomen soft, nontender, bowel sounds audible, no guarding , no rigidity. Extremities bilateral pitting edema significantly improved. Neuro nonfocal . Skin no rash Objective Data Current Medications Generic Name Dose Route Start Last Admin Trade Name Freq PRN Reason Stop Dose Admin Acetaminophen 650 mg 07/28/20 18:37 07/31/20 10:58 Acetaminophen 325 Mg Tablet PO 650 mg Q6H PRN Administration Pain, Mild (Pain Scale 1-3) Albuterol Sulfate 2.5 mg 07/28/20 18:37 Albuterol Sulfate (0.083%) 2.5 Mg/3 Ml Vial.Neb INHALE Q4H PRN Shortness Of Breath Albuterol/Ipratropium 3 ml 07/28/20 20:00 08/01/20 12:19 Albuterol/Iprat 2.5/0.5mg 3 Ml Ampul.Neb INHALE 3 ml RQ4H WHILE AWAKE ROCKY Administration Amlodipine Besylate 5 mg 07/29/20 09:00 08/01/20 09:52 Amlodipine Besylate 5 Mg Tablet PO 5 mg DAILY ROCKY Administration Protocol Apixaban 5 mg 07/28/20 21:00 08/01/20 09:52 Apixaban 5 Mg Tablet PO 5 mg BID ROCKY Administration Atorvastatin Calcium 80 mg 07/29/20 09:00 08/01/20 09:52 Atorvastatin Calcium 80 Mg Tablet PO 80 mg DAILY ROCKY Administration Bumetanide 2 mg 08/01/20 17:00 Bumetanide 1 Mg Tablet PO BID@0800,1700 [facility] Protocol Insulin Glargine 15 unit 07/31/20 21:00 07/31/20 22:23 Insulin Glargine,Hum.Rec.Anlog 100 Unit/Ml 10 Ml Vial SUBCUT 15 unit BEDTIME ROCKY Administration Insulin Human Lispro 0 unit 07/28/20 18:37 08/01/20 12:43 Insulin Lispro 100 Unit/Ml 3 Ml Vial SUBCUT 10 unit QIDACHS [facility] Administration Protocol Isosorbide Mononitrate 60 mg 07/29/20 09:00 08/01/20 09:52 Isosorbide Mononitrate 60 Mg Tab.Er.24h PO 60 mg DAILY ROCKY Administration Protocol Melatonin 3 mg 07/28/20 18:37 07/29/20 21:26 Melatonin 3 Mg Tablet PO 3 mg BEDTIME PRN Administration Sleep Metolazone 2.5 mg 08/01/20 11:59 Metolazone 2.5 Mg Tablet PO ONCE PRN Shortness of Breath Metoprolol Tartrate 75 mg 07/28/20 21:00 08/01/20 09:51 Metoprolol Tartrate 25 Mg Tablet PO 75 mg BID ROCKY Administration Protocol Olanzapine 15 mg 07/28/20 21:00 07/31/20 22:25 Olanzapine 7.5 Mg Tablet PO 15 mg BEDTIME ROCKY Administration Ondansetron HCl 4 mg 07/28/20 18:37 Ondansetron Hcl 4 Mg/2 Ml Vial IVPUSH Q8H PRN Nausea and Vomiting Oxycodone HCl 5 mg 07/30/20 09:45 07/31/20 22:24 Oxycodone Hcl Immed Release 5 Mg Tablet PO 5 mg Q6H PRN Administration Pain, Severe (Pain Scale 7-10) Pharmacy Consult 1 each 07/28/20 12:26 Consult Rx Perform Med Rec MISCELLANE ONCE PRN Consult order Sertraline HCl 200 mg 07/29/20 09:00 08/01/20 09:51 Sertraline Hcl 100 Mg Tablet PO 200 mg DAILY ROCKY Administration Sodium Chloride 3 ml 07/28/20 18:37 08/01/20 09:50 0.9 % Sodium Chloride Flush 3 Ml Syringe IVFLUSH 3 ml QSHIFT ROCKY Administration Spironolactone 50 mg 08/02/20 09:00 Spironolactone 25 Mg Tablet PO DAILY [facility] Protocol Trazodone HCl 200 mg 07/28/20 18:37 07/30/20 23:10 Trazodone Hcl 100 Mg Tablet PO 200 mg BEDTIME PRN Administration Sleep Labs CBC & Chem 7: 07/31/20 05:43 08/01/20 05:49 Microbiology Microbiology Results: Microbiology 07/28/20 14:20 Blood - Venous Blood Culture - Preliminary No growth after 48 hours. 07/28/20 14:14 Blood - Venous Blood Culture - Preliminary No growth after 48 hours. Assessment and Plan (1) Acute on chronic diastolic (congestive) heart failure: Status: Acute (2) Paroxysmal atrial fibrillation: Status: Acute (3) Type 2 diabetes mellitus with diabetic polyneuropathy: Status: Acute (4) Essential hypertension: Status: Acute (5) Degenerative arthritis of knee, bilateral: Status: Acute (6) Morbid obesity due to excess calories: Status: Acute (7) CAD (coronary artery disease): Problem details: KAREN to [facility] for ACS,10/02. Status: Acute Assessment and Plan: 65/F with CHF here with exacerbation of heart failure . 1. Acute on chronic diastolic heart failure.. patient feels significantly better is > 15 L negative since admission creatinine improved to 1.2, able to lie flat significant improvement and bilateral lower extremity edema echocardiogram from October 2019 showed EF 60 65% with grade 2 diastolic dysfunction and severe mitral regurgitation will discontinue IV Lasix drip and resume home medications including Bumex 2 mg b.i.d., Aldactone 50 mg daily and metolazone 2.5 mg daily as needed for weight gain or shortness of breath,case discussed with Dr. Barajas and Dr. Krishnamurthy will follow BMP closely continue Diamox due to elevated bicarb , continue fluid restriction 2. Hyponatremia. Seems chronic, And stable will restrict fluids and continue above treatment 3. morbid obesity weight reduction recommended. 4. Anemia. Chronic and stable. No signs of bleeding at this time. 5. Acute kidney injury on chronic kidney disease. creatinine trending down to baseline, follow BMP 6. Diabetes mellitus. blood sugar elevated in 300-400 range continue Sliding scale, ADA diet. will resume metformin, continue Lantus dose increased to 20u 7. History of atrial fibrillation. Stable heart rate. continue Eliquis and beta dustin.. 8. Depression. Continue home medications. 9. History of coronary artery disease. Continue statin, and beta dustin. will DC Plavix as per cardio recommendation 10. Chronic pain with bilateral in knee arthritis cont. oxycodone 11. acute hypoxic respiratory failure, patient not on home oxygen , currently requiring O2 1-2 L, oxygenation drops with ambulation patient noted to have daytime somnolence likely has undiagnosed sleep apnea , patient prior ABGs showed elevated pCO2, will obtain ABGs , order overnight sleep oximetry and pulmonology consultation, minimize psychiatric medication will decrease dose of trazodone to 100 mg at bedtime as needed. Patient also on Zyprexa 15 mg at bedtime and Zoloft 200 mg daily. 12. disposition patient seen by Physical therapy and they are recommending short-term rehab social security specialist are arranging for bed patient is not stable to be discharged today. Deep vein thrombosis prophylaxis with Eliquis.
--- NOTE | 2020-08-01 13:54 | MHC.CM.PN ---
Patient may be ready for discharge tomorrow. [facility] is not able to offer bed. HARDY spoke with dtr Luz who requested to leave list of SNF's with patient and she will call patient to review and return my call with choices.
--- NOTE | 2020-08-01 14:26 | MHC.CM.PN ---
Return call from dtkatherine Escobar who states next choice for STR would be [facility]. Would not give CM any other choices at this time. referral made via [facility].
[2020-08-01 15:17] LABS: Pt Ventilation O2% 2 L
[2020-08-01 15:21] LABS: Base Excess ABG 13.2; HCO3 ABG 42 mmol/l (22-26); pH ABG 7.31 (7.35-7.45)
[2020-08-01 15:22] LABS: Oxygen Saturation ABG 30.4 %
[2020-08-01 15:24] LABS: PO2 ABG 20 mmhg (83-108)
[2020-08-01 15:25] LABS: ABG PCO2 85 mmhg (32-45)
--- NOTE | 2020-08-01 16:05 | P.CONPL_ITS ---
History of Present Illness History of Present Illness Consult date: 08/01/20 Requesting physician: Georgiana Gil Reason for consult: obstructive sleep apnea Chief complaint: acute on chronic chf Narrative: Late note for patient encounter seen on 08/01/2020 at 4pm 65-year-old lady, nonsmoker, with underlying super morbid obesity, MOISÉS with poor compliance with CPAP, congestive heart failure, coronary artery disease admitted on 07/28/2020 with dyspnea and treated for acute exacerbation of underlying chronic congestive heart failure with diuresis. Patient has improved significantly and was noted to have episodes of nocturnal desaturation. Pulmonary evaluation has been requested for underlying obstructive sleep apnea. Utilization of CPAP of 12-15 cm of water has been advised and attempted and patient has tolerated that reasonably well overnight. Review of Systems Constitutional: Constitutional: Reports weakness ENT: Denies neck pain Cardiovascular: Cardiovascular: Reports dyspnea, Reports dyspnea on exertion and Reports orthopnea Respiratory: Respiratory: Reports dyspnea, Reports dyspnea on exertion and Denies wheezing Gastrointestinal: Gastrointestinal: Denies constipation and Denies diarrhea Genitourinary: Genitourinary: Denies urinary incontinence and Denies urinary urgency Musculoskeletal: Musculoskeletal: Denies neck pain, Denies numbness and Denies stiffness Integumentary/Breasts: Skin/Breast: Denies rash Neurologic: Reports system reviewed and no additional complaints, except as documented, Denies focal weakness, Denies numbness and Reports weakness Endocrine: Endocrine: Denies cold intolerance and Denies heat intolerance Hematologic/Lymphatic: Hematologic/Lymphatic: Denies easy bleeding and Denies easy bruising Allergic/Immunologic: Allergic/Immunologic: Denies wheezing PMFSH Past Medical History Medical History CAD (coronary artery disease) CHF (congestive heart failure) Chronic pancreatitis COPD (chronic obstructive pulmonary disease) Degenerative arthritis of knee, bilateral Diverticulosis Dysuria Essential hypertension Hyperlipidemia LDL goal <70 Memory loss Morbid obesity due to excess calories Pulmonary embolism Respiratory failure with hypoxia and hypercapnia SVT (supraventricular tachycardia) Type 2 diabetes mellitus with diabetic polyneuropathy Vertigo Family History Family History Father CVD (cardiovascular disease) Mother No problems noted. Maternal Grandmother Diabetes Maternal Uncle Diabetes Maternal Aunt Diabetes Surgical History Surgical History Hx of cardiac catheterization Social History Social History Household Members: Children Housing: Apartment Alcohol intake: never Smoking Status: Former smoker Smoked in Last 30 Days: No Second Hand Smoke Exposure: No Use of substances other than those prescribed or required for medical reasons: No Currently Displaying Signs/Symptoms of Drug Intoxication Withdrawal: No Have you been hit, kicked, punched, or otherwise hurt by someone within the past year? If so, by whom?: No Is there a partner from a previous relationship who is making you feel unsafe now?: No Are you made to feel afraid or neglected: No Advance Directives: Yes Advance Directives on File: Yes Advance Directives Date on File: 11/30/19 Do you have thoughts of harming others: None Do you have a plan to hurt others: No Plan Recently lost weight without trying: No service: No Current occupational status: disabled Meds Allergies Allergy/AdvReac Type Severity Reaction Status Date / Time nitrofurantoin Allergy Intermediate SWELLING Verified 07/22/20 12:53 [From MACROBID] azithromycin [Azithromycin] Allergy Mild SWELLING Verified 07/22/20 12:53 Zithromax Allergy Unknown Swelling Uncoded 07/22/20 18:22 Home Medications Medication Instructions Recorded Confirmed Type Eliquis 5 mg PO BID 07/22/20 07/28/20 History Flovent HFA 1 puff INHALATION BID 07/22/20 07/28/20 History Incruse Ellipta 1 inh INHALATION DAILY 07/22/20 07/28/20 History acetaminophen 650 mg PO Q8H PRN 07/22/20 07/28/20 History albuterol sulfate 2.5 mg INHALATION Q4H PRN 07/22/20 07/28/20 History amlodipine [Norvasc] 5 mg PO DAILY 07/22/20 07/28/20 History atorvastatin 80 mg PO DAILY 07/22/20 07/28/20 History bumetanide 2 mg PO BID 07/22/20 07/28/20 History insulin aspart U-100 [Novolog See Protocol SUBCUT TID 07/22/20 07/28/20 History Flexpen U-100 Insulin] isosorbide mononitrate 60 mg PO DAILY 07/22/20 07/28/20 History melatonin 3 mg PO BEDTIME PRN 07/22/20 07/28/20 History metformin 1,000 mg PO DAILY 07/22/20 07/28/20 History metolazone 2.5 mg PO DAILY 07/22/20 07/28/20 History metoprolol tartrate 75 mg PO BID 07/22/20 07/28/20 History olanzapine [Zyprexa] 15 mg PO BEDTIME 07/22/20 07/28/20 History pantoprazole [Protonix] 20 mg PO DAILY 07/22/20 07/28/20 History potassium chloride [Klor-Con M20] 20 meq PO DAILY 07/22/20 07/28/20 History sertraline 200 mg PO DAILY 07/22/20 07/28/20 History spironolactone 50 mg PO DAILY 07/22/20 07/28/20 History trazodone 200 mg PO BEDTIME PRN 07/22/20 07/28/20 History clopidogrel 75 mg PO DAILY 07/28/20 07/28/20 History Physical Exam Vital Signs: Vital Signs: Last Vital Signs Temp 98.0 F 08/02/20 07:11 Pulse 65 08/02/20 07:11 Resp 20 08/02/20 07:11 BP 140/51 H 08/02/20 07:11 Pulse Ox 100 08/02/20 07:11 Body Mass Index 55.9 Const: General: no acute distress, alert and awake Nutritional Appearance: obese Eyes: Sclerae: sclerae normal EOM: EOMs intact bilaterally Neck: Neck: Yes no lymphadenopathy, Yes trachea midline and Yes supple Resp: Effort & Inspection: normal respiratory effort and no respiratory distre ss Auscultation: clear to auscultation bilaterally Cardio: Rate: regular rate Rhythm: regular rhythm Heart sounds: no gallops, no murmurs and no rubs GI: Palpation (GI): Soft to palpation and Other GI palpation findings present ( Nontender) Auscultation: normal bowel sounds Extrem: General: No clubbing, No cyanosis and Yes edema ( 2+ bilateral) Results Laboratory Findings CBC and BMP: 07/31/20 05:43 08/02/20 06:19 ABG, PT/INR, D-dimer: ABG ABG pH 7.42 (7.35-7.45) 08/02/20 08:45 ABG pCO2 57 mmhg (32-45) H 08/02/20 08:45 ABG pO2 60 mmhg (83-108) L 08/02/20 08:45 ABG O2 Saturation 91.5 % 08/02/20 08:45 PT/INR, D-dimer PT 17.1 SEC (10.8-13.0) H 07/28/20 12:47 INR 1.4 (0.9-1.1) H 07/28/20 12:47 Abnormal lab findings: Abnormal Labs 07/28/20 07/28/20 07/28/20 12:35 12:47 12:47 RBC 3.56 L Hgb 9.8 L Hct 29.8 L MCH MPV 8.9 L Immature Gran % (Auto) 1.3 H Neut % (Auto) 73.5 H Lymph % (Auto) 12.4 L Lymph # (Auto) 1.0 L Abs Immat Gran (auto) 0.10 H PT INR APTT ABG pH ABG pCO2 56 H ABG pO2 55 L ABG HCO3 33 H Sodium 122 L Potassium 5.3 H D Chloride 79 L Carbon Dioxide 32 H Anion Gap BUN 45 H Creatinine 1.79 H POC Glucose Random Glucose 209 H D Calcium 8.1 L Alkaline Phosphatase B-Natriuretic Peptide Urine Glucose (UA) Urine Osmolality 07/28/20 07/28/20 07/28/20 12:47 12:47 12:47 RBC Hgb Hct MCH MPV Immature Gran % (Auto) Neut % (Auto) Lymph % (Auto) Lymph # (Auto) Abs Immat Gran (auto) PT 17.1 H INR 1.4 H APTT 44.2 H ABG pH ABG pCO2 ABG pO2 ABG HCO3 Sodium Potassium Chloride Carbon Dioxide Anion Gap BUN Creatinine POC Glucose Random Glucose Calcium Alkaline Phosphatase 132 H B-Natriuretic Peptide 518 H Urine Glucose (UA) Urine Osmolality 07/28/20 07/28/20 07/29/20 19:18 20:23 00:24 RBC Hgb Hct MCH MPV Immature Gran % (Auto) Neut % (Auto) Lymph % (Auto) Lymph # (Auto) Abs Immat Gran (auto) PT INR APTT ABG pH ABG pCO2 ABG pO2 ABG HCO3 Sodium 123 L 123 L Potassium 5.7 H 5.6 H Chloride 81 L 82 L Carbon Dioxide 35 H 30 H Anion Gap BUN 45 H 47 H Creatinine 1.79 H 1.74 H POC Glucose 360 H* Random Glucose 329 H D 406 H* Calcium 8.1 L 7.8 L Alkaline Phosphatase B-Natriuretic Peptide Urine Glucose (UA) Urine Osmolality 07/29/20 07/29/20 07/29/20 05:20 05:39 05:39 RBC 3.86 L Hgb 10.4 L Hct 32.6 L MCH 26.9 L MPV Immature Gran % (Auto) 1.3 H Neut % (Auto) 88.4 H Lymph % (Auto) 5.9 L Lymph # (Auto) 0.4 L Abs Immat Gran (auto) 0.09 H PT INR APTT ABG pH ABG pCO2 ABG pO2 ABG HCO3 Sodium 126 L Potassium 5.3 H Chloride 81 L Carbon Dioxide 36 H Anion Gap BUN 47 H Creatinine 1.71 H POC Glucose 305 H Random Glucose 333 H Calcium 8.3 L D Alkaline Phosphatase B-Natriuretic Peptide Urine Glucose (UA) Urine Osmolality 07/29/20 07/29/20 07/29/20 07:40 11:45 12:05 RBC Hgb Hct MCH MPV Immature Gran % (Auto) Neut % (Auto) Lymph % (Auto) Lymph # (Auto) Abs Immat Gran (auto) PT INR APTT ABG pH ABG pCO2 ABG pO2 ABG HCO3 Sodium Potassium Chloride Carbon Dioxide Anion Gap BUN Creatinine POC Glucose 317 H 385 H* Random Glucose Calcium Alkaline Phosphatase B-Natriuretic Peptide Urine Glucose (UA) 250 H Urine Osmolality 07/29/20 07/29/20 07/29/20 12:05 16:07 20:17 RBC Hgb Hct MCH MPV Immature Gran % (Auto) Neut % (Auto) Lymph % (Auto) Lymph # (Auto) Abs Immat Gran (auto) PT INR APTT ABG pH ABG pCO2 ABG pO2 ABG HCO3 Sodium Potassium Chloride Carbon Dioxide Anion Gap BUN Creatinine POC Glucose 363 H* 332 H Random Glucose Calcium Alkaline Phosphatase B-Natriuretic Peptide Urine Glucose (UA) Urine Osmolality 231 L 07/29/20 07/30/20 07/30/20 22:07 07:35 08:39 RBC Hgb Hct MCH MPV Immature Gran % (Auto) Neut % (Auto) Lymph % (Auto) Lymph # (Auto) Abs Immat Gran (auto) PT INR APTT ABG pH ABG pCO2 ABG pO2 ABG HCO3 Sodium 126 L 123 L Potassium Chloride 80 L 80 L Carbon Dioxide 38 H 32 H Anion Gap BUN 53 H Creatinine 1.62 H POC Glucose 138 H Random Glucose 151 H D Calcium 8.3 L Alkaline Phosphatase B-Natriuretic Peptide Urine Glucose (UA) Urine Osmolality 07/30/20 07/30/20 07/30/20 11:46 16:38 20:18 RBC Hgb Hct MCH MPV Immature Gran % (Auto) Neut % (Auto) Lymph % (Auto) Lymph # (Auto) Abs Immat Gran (auto) PT INR APTT ABG pH ABG pCO2 ABG pO2 ABG HCO3 Sodium Potassium Chloride Carbon Dioxide Anion Gap BUN Creatinine POC Glucose 248 H 275 H 298 H Random Glucose Calcium Alkaline Phosphatase B-Natriuretic Peptide Urine Glucose (UA) Urine Osmolality 07/30/20 07/31/20 07/31/20 20:59 05:43 05:43 RBC 3.32 L Hgb 9.1 L Hct 28.4 L MCH MPV 9.1 L Immature Gran % (Auto) 0.7 H Neut % (Auto) 79.1 H Lymph % (Auto) 9.8 L Lymph # (Auto) 0.7 L Abs Immat Gran (auto) 0.05 H PT INR APTT ABG pH ABG pCO2 ABG pO2 ABG HCO3 Sodium 129 L 129 L Potassium Chloride 80 L 82 L Carbon Dioxide 37 H 38 H Anion Gap BUN 47 H Creatinine 1.42 H POC Glucose Random Glucose 345 H D Calcium 8.1 L Alkaline Phosphatase B-Natriuretic Peptide Urine Glucose (UA) Urine Osmolality 07/31/20 07/31/20 07/31/20 07:15 11:02 16:09 RBC Hgb Hct MCH MPV Immature Gran % (Auto) Neut % (Auto) Lymph % (Auto) Lymph # (Auto) Abs Immat Gran (auto) PT INR APTT ABG pH ABG pCO2 ABG pO2 ABG HCO3 Sodium Potassium Chloride Carbon Dioxide Anion Gap BUN Creatinine POC Glucose 295 H 363 H* 322 H Random Glucose Calcium Alkaline Phosphatase B-Natriuretic Peptide Urine Glucose (UA) Urine Osmolality 07/31/20 08/01/20 08/01/20 21:22 05:49 07:46 RBC Hgb Hct MCH MPV Immature Gran % (Auto) Neut % (Auto) Lymph % (Auto) Lymph # (Auto) Abs Immat Gran (auto) PT INR APTT ABG pH ABG pCO2 ABG pO2 ABG HCO3 Sodium 133 L Potassium Chloride 86 L Carbon Dioxide 37 H Anion Gap BUN 40 H Creatinine POC Glucose 274 H 290 H Random Glucose 327 H Calcium 8.3 L Alkaline Phosphatase B-Natriuretic Peptide Urine Glucose (UA) Urine Osmolality 08/01/20 08/01/20 08/01/20 11:37 15:09 16:33 RBC Hgb Hct MCH MPV Immature Gran % (Auto) Neut % (Auto) Lymph % (Auto) Lymph # (Auto) Abs Immat Gran (auto) PT INR APTT ABG pH 7.31 L ABG pCO2 85 H* ABG pO2 20 L* ABG HCO3 42 H Sodium Potassium Chloride Carbon Dioxide Anion Gap BUN Creatinine POC Glucose 412 H* 390 H* Random Glucose Calcium Alkaline Phosphatase B-Natriuretic Peptide Urine Glucose (UA) Urine Osmolality 08/01/20 08/02/20 08/02/20 20:15 06:19 07:09 RBC Hgb Hct MCH MPV Immature Gran % (Auto) Neut % (Auto) Lymph % (Auto) Lymph # (Auto) Abs Immat Gran (auto) PT INR APTT ABG pH ABG pCO2 ABG pO2 ABG HCO3 Sodium 134 L Potassium Chloride 88 L Carbon Dioxide 39 H Anion Gap 11 L BUN 35 H Creatinine POC Glucose 289 H 218 H Random Glucose 227 H Calcium Alkaline Phosphatase B-Natriuretic Peptide Urine Glucose (UA) Urine Osmolality 08/02/20 08:45 RBC Hgb Hct MCH MPV Immature Gran % (Auto) Neut % (Auto) Lymph % (Auto) Lymph # (Auto) Abs Immat Gran (auto) PT INR APTT ABG pH ABG pCO2 57 H ABG pO2 60 L ABG HCO3 36 H Sodium Potassium Chloride Carbon Dioxide Anion Gap BUN Creatinine POC Glucose Random Glucose Calcium Alkaline Phosphatase B-Natriuretic Peptide Urine Glucose (UA) Urine Osmolality Microbiology: Microbiology 07/28/20 14:20 Blood - Venous Blood Culture - Preliminary No growth after 48 hours. 07/28/20 14:14 Blood - Venous Blood Culture - Preliminary No growth after 48 hours. Assessment and Plan (1) Respiratory failure with hypoxia and hypercapnia: Status: Acute Impression: 65-year-old lady with underlying morbid obesity, obstructive sleep apnea, obesity hypercapnia hypoventilation syndrome with poor compliance with CPAP admitted for congestive heart failure exacerbation, now significantly improved with diuresis. Recommendations: Patient's requires CPAP (preferably APAP at 8-16cm of water) at night and as needed for naps. Would also suggest testing for oxygen requirements with activity, but does not seem to require oxygen at rest. Appears to be still grossly volume overloaded would consider further diuresis. (2) Morbid obesity due to excess calories: Status: Acute (3) MOISÉS (obstructive sleep apnea): Status: Acute Procedures Abscess I/D Date of Service: 08/01/20
[2020-08-01 16:44] LABS: Glucose, Whole Blood 390 mg/dL (60-115)
--- NOTE | 2020-08-01 16:46 | MHC.PIE ---
Unable to titrate oxygen off patient - on 2 liters, nasal cannula. Patient napping intermit through day. Dr Gil ordered ABG'S - Abnormal results, Dr Gil deemed them as VBG's. Still, CO2 elevated - ICU consulted, Dr Charles and Dr Gil at patient bedside. O2sat 99 on room air - plan to do CPAP - RT at bedside, put patient on CPAP setting 12, 25%. No transfer to ICU at this time.
[2020-08-01] MEDS: Bumetanide 1 MG TABLET 2 MG PO (17:10)
--- NOTE | 2020-08-01 18:16 | P.PNNP_ITS ---
Subjective Subjective Principal diagnosis: HypoNa Interval history: Seen and exmiend. Events noted. Exclelent diuresis again past 24 hrs of 6 Liters Physical Exam Vital Signs: Vital Signs: Last Vital Signs Temp 97.0 F 08/01/20 15:31 Pulse 62 08/01/20 15:31 Resp 15 08/01/20 16:05 BP 122/64 08/01/20 15:31 Pulse Ox 99 08/01/20 15:31 Body Mass Index 56.8 Appearance: Alert. Oriented X3. No acute distress. Eyes: Pupils equal, round and reactive to light. ENT: Pharynx normal. Neck: Normal inspection. Neck supple. CVS: Normal heart rate and rhythm. Pulses normal. Respiratory: No respiratory distress. Breath sounds decreased with diffuse end exp wheezes Abdomen: Soft and nontender. Obese Skin: Skin warm and dry. Normal skin color. Normal skin turgor. Extremities: pos bilateral lower extremity edema 2 +. No calf ttp Neuro: Oriented X 3. No motor deficit. No sensory deficit. Const: General: no acute distress and lethargic Nutritional Appearance: obese morbidly obese Orientation/consciousness: lethargic Limitations: physical limitations HENMT: Head: Yes normal to inspection, Yes normocephalic and Yes atraumatic Eyes: General: appearance normal, both eyes and all related structures Neck: Neck: Yes trachea midline and Yes other ( Difficult to evaluate JVD due to thick neck) Chest: Chest palpation & inspection: normal inspection of the chest Resp: Effort & Inspection: decreased respiratory effort Auscultation: crac kles bilateral at the base and diminished lung sounds Cardio: Palpation: other ( cannot assess PMI) Rate: regular rate Rhythm: regular rhythm Heart sounds: S1 normal heart sound present and S2 normal heart sound present GI: Inspection: Yes Abdominal panniculus present and Yes obesity Auscultation: normal bowel sounds Skin: General skin exam: no rashes or lesions noted Neuro: General: no focal motor deficits Extrem: General: Yes edema ( significant lower extremity edema bilaterally) Assessment & Plan Assessment and plan (1) Respiratory failure with hypoxia and hypercapnia: Status: Acute (2) Acute on chronic diastolic (congestive) heart failure: Status: Acute (3) Paroxysmal atrial fibrillation: Status: Acute (4) CAD (coronary artery disease): Problem details: KAREN to LCx for ACS,10/02. Status: Acute (5) COPD (chronic obstructive pulmonary disease): Status: Acute Assessment and Plan: 65/F with CHF here with exacerbation of heart failure, hypervol hypoNa, WANDA 1. Hypervol HypoNA: SNA grad incr.... to now 133 recurrent prob d/t excess PO fluid intake and being on thiazide like diuretic may be contributing hypperglycemia playing contributing role 2. WANDA: d/t CRS with steady renal improvemet with decongestive of volume overload 3. HF recurrent: ques prog MV dis ( prior card TACOS references severe MR) 4. SOB: imporoving; multiffact with CHF and COPD and ques underlying chronic lung injury 5. Obesity 6. HyperK: resolved 7. TBFOL: excellent diuresis on loop diuretic drip 8. Incr HCO3..chronic d/t CO 2 retention form COPD +/-contraction alk REC: agree with switch to po loop w aldactone and may need zaroxlyn as add on but watch SNa; card re-eval of MR; restrict pO fluids to 1500/24 rhs; frias part of her care is how to prevent recurrent fluid gains when out of hosp Will follow with team . Time Spent With Patient Time: Total time spent is greater than 50% in coordination of care (as documented) at patient's floor/unit and/or counseling patient: Procedures Abscess I/D Date of Service: 08/01/20
[2020-08-01 20:18] LABS: Glucose, Whole Blood 289 mg/dL (60-115)
[2020-08-01] MEDS: OLANZapine 7.5 MG TABLET 15 MG PO (20:34)
[2020-08-01] MEDS: traZODone HCL 100 MG TABLET PO (20:35)
[2020-08-01] MEDS: Melatonin 3 MG TABLET PO (20:35)
[2020-08-01] MEDS: Insulin Glargine,Hum.rec.anlog 100 UNIT/ML 10 ML VIAL 20 UNIT SUBCUT (20:36)
[2020-08-02] VITALS (7 sets, daily range): BP systolic 125–144; BP diastolic 51–66; PULSE 60–77; RESP 18–20; TEMP 36.1–36.8; O2SAT 90–100; BMI 55.9
[2020-08-02] MEDS: Albuterol/Iprat 2.5/0.5MG 3 ML AMPUL.NEB INHALE ×4 (07:05→19:08)
[2020-08-02 07:16] LABS: Glucose, Whole Blood 218 mg/dL (60-115)
[2020-08-02 07:45] LABS: Anion Gap 11 (12-20); Blood Urea Nitrogen 35 mg/dL (9-16); Calcium 8.4 mg/dL (8.4-10.2); Carbon Dioxide 39 mmol/L (22-29); Chloride 88 mmol/L (96-108); Creatinine Clr Calc Pharmacy 68.9; Estimated Glomerular Filt Rate 44; Glucose Random 227 mg/dL (60-115); Potassium 3.5 mmol/l (3.3-5.1); Sodium 134 mmol/L (135-145)
[2020-08-02] MEDS: amLODIPine Besylate 5 MG TABLET PO (08:49)
[2020-08-02] MEDS: Bumetanide 1 MG TABLET 2 MG PO (08:49)
[2020-08-02] MEDS: Spironolactone 25 MG TABLET 50 MG PO (08:49)
[2020-08-02] MEDS: Metoprolol Tartrate 25 MG TABLET 75 MG PO ×2 (08:49→20:30)
[2020-08-02] MEDS: Sertraline HCL 100 MG TABLET 200 MG PO (08:50)
[2020-08-02] MEDS: Insulin Lispro 100 UNIT/ML 3 ML VIAL SUBCUT ×4 (08:50→20:32)
[2020-08-02] MEDS: Isosorbide Mononitrate 60 MG TAB.ER.24H PO (08:50)
[2020-08-02] MEDS: Atorvastatin Calcium 80 MG TABLET PO (08:50)
[2020-08-02] MEDS: Apixaban 5 MG TABLET PO ×2 (08:50→20:30)
[2020-08-02] MEDS: 0.9 % Sodium Chloride Flush 3 ML SYRINGE IVFLUSH ×3 (08:50→20:31)
[2020-08-02 08:55] LABS: Pt Ventilation O2% 2 L
[2020-08-02 08:59] LABS: ABG PCO2 57 mmhg (32-45); HCO3 ABG 36 mmol/l (22-26); PO2 ABG 60 mmhg (83-108); pH ABG 7.42 (7.35-7.45)
[2020-08-02 09:00] LABS: Blood Gas Serial # 5396; Oxygen Saturation ABG 91.5 %
[2020-08-02] MEDS: Acetaminophen 325 MG TABLET 650 MG PO (11:56)
--- NOTE | 2020-08-02 12:07 | HO.PM.IMPN ---
Subjective Subjective Date of Service: 08/02/20 Interval History: patient tolerated CPAP well last night, denies shortness of breath, denies chest pain, is resting in a recliner wishes to return back to bed, no other acute issues overnight, tolerating diet is greater than 3 L negative. Review of Systems General no headache , no dizziness, no fever chills. CVS no chest pain, no palpitation. Respiratory no cough, no shortness of breath Gastrointestinal no nausea, no vomiting, no abdominal pain Physical Exam Vital Signs: Vital Signs: Last Vital Signs Temp 98.0 F 08/02/20 07:11 Pulse 65 08/02/20 07:11 Resp 20 08/02/20 07:11 BP 140/51 H 08/02/20 07:11 Pulse Ox 100 08/02/20 07:11 Body Mass Index 55.9 General patient sitting up in chair somnolent but arousable. Neck supple no JVD. CVS irregular Respiratory lungs clear to auscultation, no wheeze, no rhonchi. Gastrointestinal abdomen soft, nontender, bowel sounds audible, no guarding , no rigidity. Extremities bilateral pitting edema significantly improved, but still persists. Neuro nonfocal . Skin no rash Objective Data Current Medications Generic Name Dose Route Start Last Admin Trade Name Freq PRN Reason Stop Dose Admin Acetaminophen 650 mg 07/28/20 18:37 08/02/20 11:56 Acetaminophen 325 Mg Tablet PO 650 mg Q6H PRN Administration Pain, Mild (Pain Scale 1-3) Albuterol Sulfate 2.5 mg 07/28/20 18:37 Albuterol Sulfate (0.083%) 2.5 Mg/3 Ml Vial.Neb INHALE Q4H PRN Shortness Of Breath Albuterol/Ipratropium 3 ml 07/28/20 20:00 08/02/20 10:58 Albuterol/Iprat 2.5/0.5mg 3 Ml Ampul.Neb INHALE 3 ml RQ4H WHILE AWAKE ROCKY Administration Amlodipine Besylate 5 mg 07/29/20 09:00 08/02/20 08:49 Amlodipine Besylate 5 Mg Tablet PO 5 mg DAILY ROCKY Administration Protocol Apixaban 5 mg 07/28/20 21:00 08/02/20 08:50 Apixaban 5 Mg Tablet PO 5 mg BID ROCKY Administration Atorvastatin Calcium 80 mg 07/29/20 09:00 08/02/20 08:50 Atorvastatin Calcium 80 Mg Tablet PO 80 mg DAILY ROCKY Administration Bumetanide 2 mg 08/01/20 17:00 08/02/20 08:49 Bumetanide 1 Mg Tablet PO 2 mg BID@0800,1700 ROCKY Administration Protocol Insulin Glargine 20 unit 08/01/20 21:00 08/01/20 20:36 Insulin Glargine,Hum.Rec.Anlog 100 Unit/Ml 10 Ml Vial SUBCUT 20 unit BEDTIME ROCKY Administration Insulin Human Lispro 0 unit 07/28/20 18:37 08/02/20 08:50 Insulin Lispro 100 Unit/Ml 3 Ml Vial SUBCUT 4 unit QIDACHS [facility] Administration Protocol Isosorbide Mononitrate 60 mg 07/29/20 09:00 08/02/20 08:50 Isosorbide Mononitrate 60 Mg Tab.Er.24h PO 60 mg DAILY ROCKY Administration Protocol Melatonin 3 mg 07/28/20 18:37 08/01/20 20:35 Melatonin 3 Mg Tablet PO 3 mg BEDTIME PRN Administration Sleep Metolazone 2.5 mg 08/01/20 11:59 Metolazone 2.5 Mg Tablet PO ONCE PRN Shortness of Breath Metoprolol Tartrate 75 mg 07/28/20 21:00 08/02/20 08:49 Metoprolol Tartrate 25 Mg Tablet PO 75 mg BID ROCKY Administration Protocol Olanzapine 15 mg 07/28/20 21:00 08/01/20 20:34 Olanzapine 7.5 Mg Tablet PO 15 mg BEDTIME ROCKY Administration Ondansetron HCl 4 mg 07/28/20 18:37 Ondansetron Hcl 4 Mg/2 Ml Vial IVPUSH Q8H PRN Nausea and Vomiting Pharmacy Consult 1 each 07/28/20 12:26 Consult Rx Perform Med Rec MISCELLANE ONCE PRN Consult order Sertraline HCl 200 mg 07/29/20 09:00 08/02/20 08:50 Sertraline Hcl 100 Mg Tablet PO 200 mg DAILY ROCKY Administration Sodium Chloride 3 ml 07/28/20 18:37 08/02/20 08:50 0.9 % Sodium Chloride Flush 3 Ml Syringe IVFLUSH 3 ml QSHIFT [facility] Administration Spironolactone 50 mg 08/02/20 09:00 08/02/20 08:49 Spironolactone 25 Mg Tablet PO 50 mg DAILY ROCKY Administration Protocol Trazodone HCl 100 mg 08/01/20 13:27 08/01/20 20:35 Trazodone Hcl 100 Mg Tablet PO 100 mg BEDTIME PRN Administration Sleep Labs CBC & Chem 7: 07/31/20 05:43 08/02/20 06:19 Microbiology Microbiology Results: Microbiology 07/28/20 14:20 Blood - Venous Blood Culture - Preliminary No growth after 48 hours. 07/28/20 14:14 Blood - Venous Blood Culture - Preliminary No growth after 48 hours. Assessment and Plan (1) Acute on chronic diastolic (congestive) heart failure: Status: Resolved (2) Paroxysmal atrial fibrillation: Status: Acute (3) Type 2 diabetes mellitus with diabetic polyneuropathy: Status: Acute (4) Essential hypertension: Status: Acute (5) Degenerative arthritis of knee, bilateral: Status: Acute (6) Morbid obesity due to excess calories: Status: Acute (7) CAD (coronary artery disease): Problem details: KAREN to LCx for ACS,10/02. Status: Acute Assessment and Plan: 65/F with CHF here with exacerbation of heart failure . 1. Acute on chronic diastolic heart failure.. patient feels significantly better is > 16 L negative since admission creatinine improved to 1.2, able to lie flat significant improvement in bilateral lower extremity edema echocardiogram from October 2019 showed EF 60 65% with grade 2 diastolic dysfunction and severe mitral regurgitation s/p treatment with IV Lasix drip, now on bumex 2 mg b.i.d., Aldactone 50 mg daily and metolazone 2.5 mg daily as needed for weight gain or shortness of breath,case discussed with Dr. Barajas and Dr. Krishnamurthy will follow BMP closely continue Diamox due to elevated bicarb , continue fluid restriction patient will be discharged to rehab facility strongly recommended to follow low-salt and low-calorie diet 2. Hyponatremia. Seems chronic, And stable will restrict fluids and continue above treatment 3. morbid obesity weight reduction recommended, counseling done discuss in detail to avoid carbohydrate and fatty food. 4. Anemia. Chronic and stable. No signs of bleeding at this time. 5. Acute kidney injury on chronic kidney disease. creatinine trending down to baseline, follow BMP 6. Diabetes mellitus. blood sugar improving now in 200 range with addition of Lantus, continue Sliding scale will adjust dose, ADA diet. metformin, and Lantus 7. History of atrial fibrillation. Stable heart rate. continue Eliquis and beta dustin.. 8. Depression. Continue home medications. 9. History of coronary artery disease. Continue statin, and beta dustin. Plavix discontinued as per cardio recommendation. 10. Chronic pain with bilateral in knee arthritis cont. oxycodone 11. acute hypoxic and hypercarbic respiratory failure, patient with history of sleep apnea, and obesity hypoventilation syndrome, with noncompliant with CPAP, patient was placed on CPAP last night she tolerated it fairly well repeat ABG showed improvement in CO2, now ABGs seems to be at baseline, will use oxygen only with activity, her resting oxygenation is stable, patient seen by Dr. Charles will follow pulmonary recommendation will minimize psychiatric medication. 12. disposition patient seen by Physical therapy and they are recommending short-term rehab social services counselor are arranging for bed patient will need CPAP at nursing facility and will need home O2 eval prior to discharge from rehab. Deep vein thrombosis prophylaxis with Eliquis.
[2020-08-02 12:13] LABS: Glucose, Whole Blood 387 mg/dL (60-115)
[2020-08-02] MEDS: acetaZOLAMIDE 250 MG TABLET PO ×2 (15:02→20:30)
--- NOTE | 2020-08-02 15:44 | PM.PNNEP ---
Subjective Subjective Principal diagnosis: HypoNa Interval history: Seen and exmiend. Events noted. net -2L in 24 hours Bicarb rising concerning for intravascular depletion as capillary refill rate cannot keep up with our diuresis rate. Physical Exam Vital Signs: Vital Signs: Last Vital Signs Temp 98.3 F 08/02/20 15:30 Pulse 65 08/02/20 15:30 Resp 20 08/02/20 15:30 BP 134/63 08/02/20 15:30 Pulse Ox 92 08/02/20 15:30 Body Mass Index 55.9 General patient sitting up in chair somnolent but arousable. Neck supple no JVD. CVS irregular Respiratory lungs clear to auscultation, no wheeze, no rhonchi. Gastrointestinal abdomen soft, nontender, bowel sounds audible, no guarding , no rigidity. Extremities bilateral pitting edema significantly improved, but still persists. Neuro nonfocal . Skin no rash Resp: Effort & Inspection: normal respiratory effort, decreased respiratory effort and no respiratory distress Auscultation: clear to auscultation bilaterally, crackles bilateral at the base, no rales, no wheezes and diminished lung sounds Cardio: Palpation: other ( cannot assess PMI) Rate: regular rate Rhythm: regular rhythm Heart sounds: S1 normal heart sound present, S2 normal heart sound present, no gallops, no murmurs and no rubs GI: Inspection: Yes Abdominal panniculus present and Yes obesity Palpation (GI): Soft to palpation and Other GI palpation findings present ( Nontender) Auscultation: normal bowel sounds Extrem: General: No clubbing, No cyanosis and Yes edema ( 2+ bilateral) Assessment & Plan Assessment and plan (1) Respiratory failure with hypoxia and hypercapnia: Status: Acute (2) Acute on chronic diastolic (congestive) heart failure: Status: Resolved (3) Paroxysmal atrial fibrillation: Status: Acute (4) CAD (coronary artery disease): Problem details: KAREN to LCx for ACS,10/02. Status: Acute (5) COPD (chronic obstructive pulmonary disease): Status: Acute Assessment and Plan: 65/F with CHF here with exacerbation of heart failure, hypervol hypoNa, WANDA 1. Hypervol HypoNA: Na increasing with diuresis. Monitor Ubaldo and Uosm daily 2. WANDA: d/t CRS with steady renal improvemet with decongestive of volume overload c/w Diuretics. 3. Incr HCO3 Although she has hypervolemia, her Intrasvascular space needs to be considered seperate from her Extravascular space. As we diurese, we deplete intrasvascular volume. We depend on a good capillary refill rate to replenish the intrasvascular space with extravascular volume. However this rate is slow. And we are diuresing too quickly. This leads to a contraction alk in the setting of total body overload. Lets Add Acetazolamide 500mg IV x1 Lets reduce BUmex to 1mg from 2mg. Time Spent With Patient Time: Total time spent is greater than 50% in coordination of care (as documented) at patient's floor/unit and/or counseling patient: Procedures Abscess I/D Date of Service: 08/02/20
[2020-08-02 16:39] LABS: Glucose, Whole Blood 360 mg/dL (60-115)
[2020-08-02] MEDS: acetaZOLAMIDE sodium 500 MG VIAL IVPUSH (18:18)
[2020-08-02] MEDS: OLANZapine 7.5 MG TABLET 15 MG PO (20:29)
[2020-08-02] MEDS: traZODone HCL 100 MG TABLET PO (20:30)
[2020-08-02] MEDS: Melatonin 3 MG TABLET PO (20:30)
[2020-08-02] MEDS: Insulin Glargine,Hum.rec.anlog 100 UNIT/ML 10 ML VIAL 24 UNIT SUBCUT (20:33)
[2020-08-02 20:35] LABS: Glucose, Whole Blood 343 mg/dL (60-115)
[2020-08-03 00:19] VITALS: PULSE 76; RESP 18; O2SAT 93
[2020-08-03] MEDS: Acetaminophen 325 MG TABLET 650 MG PO ×2 (02:54→10:39)
[2020-08-03 03:14] VITALS: BP 122/59; PULSE 61; RESP 18; TEMP 36.2; O2SAT 96
[2020-08-03 04:49] VITALS: PULSE 82; RESP 18; O2SAT 92
[2020-08-03 06:00] VITALS: BMI 55.5
[2020-08-03] MEDS: Albuterol/Iprat 2.5/0.5MG 3 ML AMPUL.NEB INHALE ×2 (07:29→11:20)
[2020-08-03 07:57] VITALS: BP 174/71; PULSE 82; RESP 18; TEMP 36.4; O2SAT 99
[2020-08-03 08:05] LABS: Anion Gap 12 (12-20); Blood Urea Nitrogen 37 mg/dL (9-16); Calcium 8.9 mg/dL (8.4-10.2); Carbon Dioxide 35 mmol/L (22-29); Chloride 92 mmol/L (96-108); Creatinine Clr Calc Pharmacy 63.4; Estimated Glomerular Filt Rate 40; Glucose Random 255 mg/dL (60-115); Potassium 3.4 mmol/l (3.3-5.1); Sodium 136 mmol/L (135-145)
[2020-08-03] MEDS: Insulin Lispro 100 UNIT/ML 3 ML VIAL SUBCUT ×2 (08:12→12:04)
[2020-08-03] MEDS: Spironolactone 25 MG TABLET 50 MG PO (08:13)
[2020-08-03] MEDS: acetaZOLAMIDE 250 MG TABLET PO ×2 (08:13→14:19)
[2020-08-03] MEDS: 0.9 % Sodium Chloride Flush 3 ML SYRINGE IVFLUSH (08:13)
[2020-08-03] MEDS: Isosorbide Mononitrate 60 MG TAB.ER.24H PO (08:13)
[2020-08-03] MEDS: amLODIPine Besylate 5 MG TABLET PO (08:13)
[2020-08-03] MEDS: Atorvastatin Calcium 80 MG TABLET PO (08:13)
[2020-08-03] MEDS: Apixaban 5 MG TABLET PO (08:13)
[2020-08-03] MEDS: Metoprolol Tartrate 25 MG TABLET 75 MG PO (08:14)
[2020-08-03] MEDS: Sertraline HCL 100 MG TABLET 200 MG PO (08:14)
[2020-08-03 08:28] LABS: Glucose, Whole Blood 210 mg/dL (60-115)
[2020-08-03] MEDS: Insulin Glargine,Hum.rec.anlog 100 UNIT/ML 10 ML VIAL 10 UNIT SUBCUT (09:05)
[2020-08-03 11:44] VITALS: BP 122/54; PULSE 60; RESP 18; TEMP 36.2; O2SAT 94
[2020-08-03 11:50] LABS: Glucose, Whole Blood 315 mg/dL (60-115)
--- NOTE | 2020-08-03 12:28 | MHC.CM.PN ---
HARDY spoke to pts daughter this morning and informed her that [facility] was still not accepting patients and that [facility] was not contacted with her mothers insurance. HARDY provided a list of facilities that are contracted with [facility] insurance and Luz asked that referrals be sent to [facility] and [facility]. HARDY called Luz back around 1200 hours and informed her that [facility] was able to offer a bed. She was informed that insurance auth had been requested and once obtained, the pt would be transferred to the [facility]. HARDY will call her back once auth is obtained and provide a DC time Pt will discharge to [facility], pending insurance auth, via BLS
--- NOTE | 2020-08-03 13:23 | PM.PNNEP ---
Subjective Subjective Principal diagnosis: HypoNa Interval history: bumex held Acetazolamide started Pt tells me her current edema and breathing is back to baseline. She is on Room air. Physical Exam Vital Signs: Vital Signs: Last Vital Signs Temp 97.1 F 08/03/20 11:44 Pulse 60 08/03/20 11:44 Resp 18 08/03/20 11:44 BP 122/54 L 08/03/20 11:44 Pulse Ox 94 08/03/20 11:44 Body Mass Index 55.5 General patient sitting up in chair somnolent but arousable. Neck supple no JVD. CVS irregular Respiratory lungs clear to auscultation, no wheeze, no rhonchi. Gastrointestinal abdomen soft, nontender, bowel sounds audible, no guarding , no rigidity. Extremities bilateral pitting edema significantly improved, but still persists. Neuro nonfocal . Skin no rash Assessment & Plan Assessment and plan (1) Respiratory failure with hypoxia and hypercapnia: Status: Acute (2) Acute on chronic diastolic (congestive) heart failure: Status: Resolved (3) Paroxysmal atrial fibrillation: Status: Acute (4) CAD (coronary artery disease): Problem details: KAREN to LCx for ACS,10/02. Status: Acute (5) COPD (chronic obstructive pulmonary disease): Status: Acute Assessment and Plan: 65/F with CHF here with exacerbation of heart failure, hypervol hypoNa, WANDA 1. Hypervol HypoNA: Na resolved with diuresis. 2. WANDA: d/t CRS with steady renal improvemet with decongestive of volume overload Cr now stable. 3. Incr HCO3 Mix of Resp Acidosis and Mild Contract Alk. - ok to use diamox - I believe we have reached her euvolemic state. She has chronic edema likely from lymphedema and crhonic venous insufficiency. I would not push her net negative anymore - lets perhaps find a maintenance diuretic for her. Lets start at lasix 40mg PO BID once her Bicarb is stable. Time Spent With Patient Time: Total time spent is greater than 50% in coordination of care (as documented) at patient's floor/unit and/or counseling patient: Procedures Abscess I/D Date of Service: 08/03/20
--- NOTE | 2020-08-03 13:28 | PM.DS ---
DS: Providers Provider Date of admission: 07/28/20 16:05 Primary care physician: Unknown Physician Consults: 07/28/20 15:18 Consult to Nephrology Routine Consulting Provider: Brock Barajas Reason for consultation: hyponatrmia Has provider been notified: No 07/28/20 18:37 Consult to Cardiology Routine Consulting Provider: Dominik Germain Reason for consultation: acute in chronic chf Has provider been notified: No 08/01/20 13:22 Consult to Pulmonology Routine Consulting Provider: Johnny Charles Reason for consultation: sleep apnea day time sleeping DS: Diagnosis Discharge Diagnosis (1) Respiratory failure with hypoxia and hypercapnia: Status: Acute (2) Acute on chronic diastolic (congestive) heart failure: Status: Resolved (3) Paroxysmal atrial fibrillation: Status: Acute (4) CAD (coronary artery disease): Status: Acute Problem details: KAREN to [facility] for ACS,10/02. (5) COPD (chronic obstructive pulmonary disease): Status: Acute DS: Medications Discharge Medications Home Medications: Home Medications Medication Instructions Recorded Confirmed Eliquis 5 mg PO BID 07/22/20 07/28/20 Flovent HFA 1 puff INHALATION BID 07/22/20 07/28/20 Incruse Ellipta 1 inh INHALATION DAILY 07/22/20 07/28/20 acetaminophen 650 mg PO Q8H PRN 07/22/20 07/28/20 albuterol sulfate 2.5 mg INHALATION Q4H PRN 07/22/20 07/28/20 amlodipine [Norvasc] 5 mg PO DAILY 07/22/20 07/28/20 atorvastatin 80 mg PO DAILY 07/22/20 07/28/20 bumetanide 2 mg PO BID 07/22/20 07/28/20 insulin aspart U-100 [Novolog See Protocol SUBCUT TID 07/22/20 07/28/20 Flexpen U-100 Insulin] isosorbide mononitrate 60 mg PO DAILY 07/22/20 07/28/20 melatonin 3 mg PO BEDTIME PRN 07/22/20 07/28/20 metformin 1,000 mg PO DAILY 07/22/20 07/28/20 metolazone 2.5 mg PO DAILY 07/22/20 07/28/20 metoprolol tartrate 75 mg PO BID 07/22/20 07/28/20 olanzapine [Zyprexa] 15 mg PO BEDTIME 07/22/20 07/28/20 pantoprazole [Protonix] 20 mg PO DAILY 07/22/20 07/28/20 potassium chloride [Klor-Con M20] 20 meq PO DAILY 07/22/20 07/28/20 sertraline 200 mg PO DAILY 07/22/20 07/28/20 spironolactone 50 mg PO DAILY 07/22/20 07/28/20 trazodone 200 mg PO BEDTIME PRN 07/22/20 07/28/20 clopidogrel 75 mg PO DAILY 07/28/20 07/28/20 DS: Summary Hospital Course Hospital Course: history of presenting illness 65-year-old woman, who presented to the ER with complaints of cough and yellow phlegm. She reported that she ran out of her albuterol nebs approximately 2 days ago and her symptoms were getting progressively worse. She was recently discharged from [facility] on July 25 and at that time treated for acute on chronic diastolic heart failure. She was started on IV Bumex and metolazone. She was diuresed well and she was sent home with p.o. Bumex and metolazone to follow up with Cardiology. She reports that since her discharge, she has continued to feel short of breath and has increased swelling to her lower extremities. Her BNP is noted to be elevated, but around where she usually is at 518. She was also noted to have a low sodium of 122, which is chronic, but somewhat lower than her previous. Her potassium is elevated at 5.3, chloride 79, creatinine 1.79 with history of CKD. Blood gas showed pCO2 of 56 and pO2 of 55, pH 7.38. The patient was given dose of morphine, Zofran, Solu-Medrol, albuterol, Rocephin, doxycycline, ceftriaxone. The patient will be admitted for further management and treatment of acute on chronic congestive heart failure. PAST MEDICAL HISTORY: 1. Hypertension. 2. Coronary artery disease, status post PCI with stent in 2013. 3. Asthma. 4. Diabetes. 5. Depression. 6. Atrial fibrillation/atrial flutter, history of AVNRT. 7. GERD. 8. MOISÉS, noncompliant with CPAP. PAST SURGICAL HISTORY: 1. Tubal ligation. 2. Cholecystectomy. 3. ERCP. Hospital course 1. Acute on chronic diastolic heart failure.. patient feels significantly better is > 16 L negative since admission creatinine improved to 1.2, able to lie flat significant improvement in bilateral lower extremity edema echocardiogram from October 2019 showed EF 60 65% with grade 2 diastolic dysfunction and severe mitral regurgitation,s/p treatment with IV Lasix drip, now on bumex 2 mg b.i.d., Aldactone 50 mg daily and metolazone 2.5 mg daily as needed for weight gain or shortness of breath,continue Diamox due to elevated bicarb , continue fluid restriction 1.2-1.5 L strongly recommended to follow low-salt and low-calorie diet 2. Hyponatremia. due to hypervolemia sodium normalized will restrict fluids and continue above treatment 3. morbid obesity weight reduction recommended, counseling done discuss in detail to avoid carbohydrate and fatty food. 4. Anemia. Chronic and stable. No signs of bleeding at this time. 5. Acute kidney injury on chronic kidney disease. creatinine improved to baseline with diuretic, follow BMP Q weekly. 6. Diabetes mellitus. blood sugar Remains elevated at home was receiving Toujeo and novolog insulin tid , is being discharged on Lantus and insulin sliding scale, strongly recommend to follow diabetic diet and lose weight 7. History of atrial fibrillation. Stable heart rate. continue Eliquis and beta dustin.. 8. Depression. Continue home medications. dose of trazodone reduced due to excessive daytime somnolence. 9. History of coronary artery disease. Continue statin, and beta dustin. Plavix discontinued as per cardio recommendation. 10. Chronic pain with bilateral in knee arthritis recommend weight reduction , as needed Tylenol and ambulation 11. acute hypoxic and hypercarbic respiratory failure, patient with history of sleep apnea, and obesity hypoventilation syndrome, with noncompliant with CPAP, patient placed on CPAP, she tolerated it fairly well repeat ABG showed improvement in CO2, now ABGs seems to be at baseline, will use oxygen only with activity, her resting oxygenation is stable, patient seen by Dr. Charles he recommend CPAP at night and daytime with naps weight reduction strongly recommended, minimize psychiatric medication. continue home inhalers. 12. disposition patient seen by Physical therapy and they are recommending short-term rehab Time Spent with Patient Time attestation: Total time spent providing and/or coordinating discharge services: Physical Exam Vital Signs: Vital Signs: Last Vital Signs Temp 97.1 F 08/03/20 11:44 Pulse 60 08/03/20 11:44 Resp 18 08/03/20 11:44 BP 122/54 L 08/03/20 11:44 Pulse Ox 94 08/03/20 11:44 Body Mass Index 55.5 General patient resting comfortably , no acute distress, patient appears euvolemic. Neck supple no JVD. CVS regular rate rhythm, Respiratory lungs clear to auscultation, no respiratory distress, no wheeze, no rhonchi. Gastrointestinal abdomen soft, nontender, bowel sounds audible, no no guarding , no rigidity. Extremities no clubbing cyanosis ,edema resolved. Neuro nonfocal patient moving all 4 extremity speech clear. Skin no rash DS: Data Data Completed and Pending Labs on day of discharge: 07/28/20 12:01 ECG 12 lead EKG Stat EKG Documentation DIRECTED Albuterol Sulfate (0.083%) [Ventolin (0.083%)] 5 mg INHALE ONCE ONE Morphine Sulfate 4 mg IVPUSH ONCE ONE methylPREDNISolone Sod Succ/PF [SOLU-MedroL] 60 mg IVPUSH ONCE ONE ondansetron HCL [Zofran] 4 mg IVPUSH ONCE ONE 07/28/20 12:02 XR chest 1V Stat 07/28/20 12:35 Arterial Blood Gas Routine 07/28/20 12:47 B Type Natriuretic Peptide Stat Basic Metabolic Panel Stat Complete Blood Count Auto Diff Stat Lactic Acid Stat Liver Panel Stat Magnesium Stat Partial Thromboplastin Time Stat Prothrombin Time INR Stat Troponin-I High Sensitivity Stat 07/28/20 13:56 Albuterol Sulfate (0.083%) [Ventolin (0.083%)] 5 mg INHALE ONCE ONE 07/28/20 13:57 Doxycycline Hyclate [Vibramycin] 100 mg 0.9 % Sodium Chloride [Ns] 250 ml IV ONCE cefTRIAXone sodium [Rocephin] 1 gm 0.9 % Sodium Chloride [Ns] 50 ml IV ONCE 07/28/20 14:20 SARS COV2 PCR INHOUSE Stat Blood Culture X2 [BC] Stat 07/28/20 14:22 cefTRIAXone sodium [Rocephin] 1 gm .ROUTE .STK-MED ONE 07/28/20 15:02 Doxycycline Hyclate [Vibramycin] 100 mg IV .STK-MED ONE 07/28/20 15:59 Transfer Order Routine 07/28/20 18:37 Furosemide [Lasix] 40 mg IVPUSH BID@0900,1800 traZODone HCL [Desyrel] 200 mg PO BEDTIME PRN 07/28/20 Dinner Diabetic Diet 07/28/20 19:18 Basic Metabolic Panel Routine Osmolality, Serum Stat 07/28/20 20:19 Sodium Polystyrene Sulfon/Sorb [Kayexalate] 30 gm PO ONCE ONE 07/28/20 20:23 Glucose, Whole Blood Routine 07/29/20 00:24 Basic Metabolic Panel Routine 07/29/20 01:12 Insulin Lispro [Humalog] 10 unit SUBCUT ONCE ONE 07/29/20 05:20 Glucose, Whole Blood Routine 07/29/20 05:39 Basic Metabolic Panel DAILY@0600 Complete Blood Count Auto Diff DAILY@0600 SLIDE REVIEW Routine 07/29/20 07:40 Glucose, Whole Blood Routine 07/29/20 09:00 Clopidogrel Bisulfate [Plavix] 75 mg PO DAILY 07/29/20 11:45 Glucose, Whole Blood Routine 07/29/20 12:00 Container,Empty 0 ml Furosemide [Lasix] 500 mg IVCONT 10 mg/hr 07/29/20 12:05 Osmolality Urine Stat Potassium Urine Random Stat Sodium Urine Random Stat UA CC w/rflx Micro + Cult Stat 07/29/20 Lunch Diabetic Diet 07/29/20 16:07 Glucose, Whole Blood Routine 07/29/20 20:17 Glucose, Whole Blood Routine 07/29/20 22:07 Electrolytes Stat 07/30/20 07:35 Glucose, Whole Blood Routine 07/30/20 08:39 Basic Metabolic Panel Routine 07/30/20 09:45 oxyCODONE HCl Immed Release [Roxicodone] 5 mg PO Q6H PRN 07/30/20 11:46 Glucose, Whole Blood Routine 07/30/20 12:31 Furosemide [Lasix] 80 mg IVPUSH ONCE ONE 07/30/20 12:45 Container,Empty 0 ml Furosemide [Lasix] 500 mg IVCONT 10 mg/hr 07/30/20 16:38 Glucose, Whole Blood Routine 07/30/20 20:18 Glucose, Whole Blood Routine Albuterol/Iprat 2.5/0.5MG 3 ML [Duoneb] 3 ml INHALE .STK-MED ONE 07/30/20 20:59 Electrolytes Stat 07/31/20 05:43 Basic Metabolic Panel Routine Complete Blood Count Auto Diff Routine SLIDE REVIEW Routine 07/31/20 07:15 Glucose, Whole Blood Routine 07/31/20 11:02 Glucose, Whole Blood Routine 07/31/20 12:00 Container,Empty 0 ml Furosemide [Lasix] 500 mg IVCONT 10 mg/hr 07/31/20 15:00 acetaZOLAMIDE [Diamox] 250 mg PO TID 07/31/20 16:09 Glucose, Whole Blood Routine 07/31/20 19:54 Albuterol/Iprat 2.5/0.5MG 3 ML [Duoneb] 3 ml INHALE .[facility]-MED ONE 07/31/20 21:00 Insulin Glargine,Hum.rec.anlog [Lantus] 15 unit SUBCUT BEDTIME 07/31/20 21:22 Glucose, Whole Blood Routine 08/01/20 05:49 Basic Metabolic Panel Routine 08/01/20 07:46 Glucose, Whole Blood Routine 08/01/20 11:37 Glucose, Whole Blood Routine 08/01/20 12:25 Insulin Lispro [Humalog] 6 unit SUBCUT NOW STA 08/01/20 15:09 Arterial Blood Gas Routine 08/01/20 16:33 Glucose, Whole Blood Routine 08/01/20 17:00 Bumetanide [Bumex] 2 mg PO BID@0800,1700 08/01/20 20:15 Glucose, Whole Blood Routine 08/01/20 21:00 Insulin Glargine,Hum.rec.anlog [Lantus] 20 unit SUBCUT BEDTIME 08/02/20 06:19 Basic Metabolic Panel Routine 08/02/20 07:09 Glucose, Whole Blood Routine 08/02/20 08:45 Arterial Blood Gas Routine 08/02/20 12:08 Glucose, Whole Blood Routine 08/02/20 15:43 acetaZOLAMIDE sodium [Diamox] 500 mg IVPUSH ONCE ONE 08/02/20 16:30 Glucose, Whole Blood Routine 08/02/20 17:00 Bumetanide [Bumex] 1 mg PO BID@0800,1700 08/02/20 20:19 Glucose, Whole Blood Routine 08/02/20 21:00 Insulin Glargine,Hum.rec.anlog [Lantus] 24 unit SUBCUT BEDTIME 08/03/20 06:10 Basic Metabolic Panel Routine 08/03/20 07:55 Glucose, Whole Blood Routine 08/03/20 08:22 Insulin Glargine,Hum.rec.anlog [Lantus] 10 unit SUBCUT ONCE ONE 08/03/20 11:43 Glucose, Whole Blood Routine Laboratory Last Values WBC 6.8 X10*3/uL (4.8-10.8) 07/31/20 05:43 RBC 3.32 X10*6/uL (4.20-5.50) L 07/31/20 05:43 Hgb 9.1 g/dl (12.0-16.0) L 07/31/20 05:43 Hct 28.4 % (37-47) L 07/31/20 05:43 MCV 85.5 fL (80-98) 07/31/20 05:43 MCH 27.4 pg (27.0-33.0) 07/31/20 05:43 MCHC 32.0 g/dl (31.0-35.0) 07/31/20 05:43 RDW 15.1 % (11.0-16.0) 07/31/20 05:43 Plt Count 200 X10*3/uL (160-400) 07/31/20 05:43 MPV 9.1 fL (9.4-12.3) L 07/31/20 05:43 Immature Gran % (Auto) 0.7 % (0.0-0.4) H 07/31/20 05:43 Neut % (Auto) 79.1 % (45-73) H 07/31/20 05:43 Lymph % (Auto) 9.8 % (20-40) L 07/31/20 05:43 [place] % (Auto) 9.5 % (2-11) 07/31/20 05:43 Eos % (Auto) 0.6 % (0-4) 07/31/20 05:43 Baso % (Auto) 0.3 % (0-2) 07/31/20 05:43 Lymph # (Auto) 0.7 X10*3/uL (1.2-4.9) L 07/31/20 05:43 [place] # (Auto) 0.6 X10*3/uL (0.1-1.2) 07/31/20 05:43 Eos # (Auto) 0.0 X10*3/uL (0.0-0.4) 07/31/20 05:43 Baso # (Auto) 0.0 X10*3/uL (0.0-0.2) 07/31/20 05:43 Abs Immat Gran (auto) 0.05 X10*3/uL (0.00-0.03) H 07/31/20 05:43 Absolute Neuts (auto) 5.4 X10*3/uL (2.0-8.3) 07/31/20 05:43 Absolute Nucleated RBC 0.000 X10*3/uL (0.0-0.012) 07/31/20 05:43 Nucleated RBC % (auto) 0.0 /100WBC (0.0-0.2) 07/31/20 05:43 Smear Tech's Comments VERIFIED 07/31/20 05:43 PT 17.1 SEC (10.8-13.0) H 07/28/20 12:47 INR 1.4 (0.9-1.1) H 07/28/20 12:47 APTT 44.2 SEC (24.1-38.0) H 07/28/20 12:47 ABG pH 7.42 (7.35-7.45) 08/02/20 08:45 ABG pCO2 57 mmhg (32-45) H 08/02/20 08:45 ABG pO2 60 mmhg (83-108) L 08/02/20 08:45 ABG HCO3 36 mmol/l (22-26) H 08/02/20 08:45 ABG O2 Saturation 91.5 % 08/02/20 08:45 ABG Base Excess 10.0 08/02/20 08:45 Oxygen Given 2 L 08/02/20 08:45 Sodium 136 mmol/L (135-145) 08/03/20 06:10 Potassium 3.4 mmol/l (3.3-5.1) 08/03/20 06:10 Chloride 92 mmol/L (96-108) L 08/03/20 06:10 Carbon Dioxide 35 mmol/L (22-29) H 08/03/20 06:10 Anion Gap 12 (12-20) 08/03/20 06:10 BUN 37 mg/dL (9-16) H 08/03/20 06:10 Creatinine 1.33 mg/dL (0.5-1.4) 08/03/20 06:10 Estim Creat Clear Calc 63.4 08/03/20 06:10 Estimated GFR 40 08/03/20 06:10 POC Glucose 315 mg/dL (60-115) H 08/03/20 11:43 Random Glucose 255 mg/dL (60-115) H 08/03/20 06:10 Osmolality 295 mosm/kg (281-305) 07/28/20 19:18 Lactic Acid 1.4 mmol/L (0.5-2.0) 07/28/20 12:47 Calcium 8.9 mg/dL (8.4-10.2) 08/03/20 06:10 Magnesium 2.2 mg/dL (1.6-2.6) 07/28/20 12:47 Total Bilirubin 0.9 mg/dL (0.0-1.0) 07/28/20 12:47 Direct Bilirubin 0.4 mg/dL (0.0-0.5) 07/28/20 12:47 AST 24 U/L (5-31) 07/28/20 12:47 ALT 14 U/L (0-31) 07/28/20 12:47 Alkaline Phosphatase 132 U/L (39-117) H 07/28/20 12:47 Troponin I High Sens < 3.5 ng/L (<3.5-17.0) 07/28/20 12:47 B-Natriuretic Peptide 518 pg/mL (<100) H 07/28/20 12:47 Total Protein 6.8 g/dL (6.5-8.0) 07/28/20 12:47 Albumin 3.9 g/dL (3.5-5.0) 07/28/20 12:47 Urine Color YELLOW 07/29/20 12:05 Urine Appearance CLEAR 07/29/20 12:05 Urine pH 7.0 (5.0-8.0) 07/29/20 12:05 Ur Specific [place] 1.010 (1.005-1.025) 07/29/20 12:05 Urine Protein NEG MG/DL (NEG-TRACE) 07/29/20 12:05 Urine Glucose (UA) 250 MG/DL (NEG) H 07/29/20 12:05 Urine Ketones NEG MG/DL (NEG) 07/29/20 12:05 Urine Blood NEG (NEG) 07/29/20 12:05 Urine Nitrite NEG (NEG) 07/29/20 12:05 Ur Leukocyte Esterase NEG (NEG) 07/29/20 12:05 Urine RBC 0 /HPF (0) 07/29/20 12:05 Urine WBC 0 /HPF (0-4) 07/29/20 12:05 Ur Squamous Epith Cells TRACE /LPF 07/29/20 12:05 Ur Renal Epithelial Cell TRACE /LPF 07/29/20 12:05 Urine Bacteria NONE /LPF 07/29/20 12:05 Urine Osmolality 231 mosm/kg (373-1093) L 07/29/20 12:05 Ur Random Sodium 41.0 mmol/L 07/29/20 12:05 Ur Random Potassium 20.7 mmol/l 07/29/20 12:05 Coronavirus (PCR) NEGATIVE (Negative) 07/28/20 14:20 Discharge Plan Discharge Patient Disposition: Xfer SNF Referrals: Mily Waite MD [Physician] - 1 Week (08/20/20 @10:30am. Dr. Waite will call you to discuss your hospital stay. If you can't keep this appointment please call and reschedule.) Discharge Medications: New metolazone 2.5 mg Tablet 2.5 mg PO ONCE PRN (Reason: Shortness Of Breath) Qty: 30 RF: 0 Lantus U-100 Insulin 100 unit/mL Solution 45 unit subcut BEDTIME Qty: 100 RF: 0 acetazolamide 250 mg Tablet 250 mg PO TID Qty: 30 RF: 0 insulin lispro [Humalog U-100 Insulin] 100 unit/mL Solution See Protocol unit subcut QIDACHS 30 Days Qty: 100 RF: 0 albuterol sulfate [Ventolin HFA] 90 mcg/actuation Hfa Aerosol Inhaler 4 puff inhalation Q3H PRN (Reason: Shortness Of Breath) Qty: 1 RF: 0 Continued atorvastatin 80 mg Tablet 80 mg PO DAILY RF: 0 bumetanide 2 mg Tablet 2 mg PO BID RF: 0 albuterol sulfate 2.5 mg /3 mL (0.083 %) Solution For Nebulization 2.5 mg INHALATION Q4H PRN (Reason: Shortness Of Breath) RF: 0 sertraline 100 mg Tablet 200 mg PO DAILY RF: 0 melatonin 3 mg Tablet 3 mg PO BEDTIME PRN (Reason: Sleep) RF: 0 amlodipine [Norvasc] 5 mg Tablet 5 mg PO DAILY RF: 0 acetaminophen 650 mg Tablet Extended Release 650 mg PO Q8H PRN (Reason: Pain (Scale Score 1-3)) RF: 0 pantoprazole [Protonix] 20 mg Tablet,Delayed Release (Dr/Ec) 20 mg PO DAILY RF: 0 isosorbide mononitrate 60 mg Tablet Extended Release 24 Hr 60 mg PO DAILY RF: 0 potassium chloride [Klor-Con M20] 20 mEq Tablet,Er Particles/Crystals 20 meq PO DAILY RF: 0 metoprolol tartrate 50 mg Tablet 75 mg PO BID RF: 0 olanzapine [Zyprexa] 15 mg Tablet 15 mg PO BEDTIME RF: 0 Flovent HFA 110 mcg/actuation Hfa Aerosol Inhaler 1 puff INHALATION BID RF: 0 spironolactone 50 mg Tablet 50 mg PO DAILY RF: 0 metformin 500 mg Tablet Extended Release 24hr 1,000 mg PO DAILY RF: 0 Eliquis 5 mg Tablet 5 mg PO BID RF: 0 Incruse Ellipta 62.5 mcg/actuation Blister With Device 1 inh INHALATION DAILY RF: 0 Changed trazodone 100 mg Tablet 100 mg PO BEDTIME PRN (Reason: Sleep) Qty: 0 RF: 0 Discontinued metolazone 2.5 mg Tablet 2.5 mg PO DAILY RF: 0 insulin aspart U-100 [Novolog Flexpen U-100 Insulin] 100 unit/mL (3 mL) Insulin Pen See Protocol unit SUBCUT TID RF: 0 clopidogrel 75 mg Tablet 75 mg PO DAILY RF: 0 Discharge Orders: Discharge Order (Routine); Ordered 08/03/20 Ordered By: Georgiana Gil Diet: diabetic diet, low fat, low cholesterol and low salt diet Activity on Discharge: As tolerated Visit Report Forms: Patient Portal Discharge page Care Plan Goals: continue CPAP 12-15 cm water at night and during daytime with naps. Health Concerns: strongly recommend to follow diabetic , low-salt and low-calorie diet, encourage ambulation and exercise Plan of Treatment: close outpatient follow-up with primary care physician, Cardiology, Nephrology.
[2020-08-03 14:13] LABS: COVID-19 Test Negative (Negative); IDNOW Serial# 9DD0AD1C
--- NOTE | 2020-08-03 16:22 | MHC.CM.PN ---
CM informed [facility] has authorized pts STR at [facility]. HARDY attempted to contact pts daughter Luz to inform her of plan to transfer pt to SNF today at 1700 hours however she did not answer. A VM message was left informing her of DC plan and inviting a call back with any questions. Pt will DC to [facility] today at 1700 hours via [facility] BLS
== END 2020-08-03 17:19 | disposition skilled nursing facility (03) | DRG 291 ==
LOC: HO.ED 14:01 → HO.IMC 17:23
PROVIDERS: Internal Medicine; Internal Medicine Nephrology; Nurse Practitioner Acute Care; Admitting Provider Family Medicine; Emergency Provider Emergency Medicine; Visit Provider Hospitalist
DX: I13.0 Hypertensive heart and chronic kidney disease with heart failure and stage 1 through stage 4 chronic kidney disease, or unspecified chronic kidney disease (principal); I50.33 Acute on chronic diastolic (congestive) heart failure; J96.01 Acute respiratory failure with hypoxia; J96.02 Acute respiratory failure with hypercapnia; E87.1 Hypo-osmolality and hyponatremia; J44.0 Chronic obstructive pulmonary disease with (acute) lower respiratory infection; E66.2 Morbid (severe) obesity with alveolar hypoventilation; Z68.43 Body mass index [BMI] 50.0-59.9, adult; N17.9 Acute kidney failure, unspecified; I25.10 Atherosclerotic heart disease of native coronary artery without angina pectoris; Z20.828 Contact with and (suspected) exposure to other viral communicable diseases; K21.9 Gastro-esophageal reflux disease without esophagitis; F32.9 Major depressive disorder, single episode, unspecified; N18.30 Chronic kidney disease, stage 3 unspecified; I48.0 Paroxysmal atrial fibrillation; E11.22 Type 2 diabetes mellitus with diabetic chronic kidney disease; D63.1 Anemia in chronic kidney disease; M17.0 Bilateral primary osteoarthritis of knee; Z99.89 Dependence on other enabling machines and devices; Z91.19 Patient's noncompliance with other medical treatment and regimen; Z79.4 Long term (current) use of insulin; Z79.01 Long term (current) use of anticoagulants; Z79.51 Long term (current) use of inhaled steroids; Z79.899 Other long term (current) drug therapy
CPT/HCPCS: 36415; 36600; 71045; 80048; 80051; 80076; 81003; 82272; 82803; 82947; 83605; 83735; 83880; 83930; 83935; 84133; 84300; 84484; 85025; 85610; 85730; 86850; 86901; 87040; 87635; 93005; 94640; 94660; 96365; 96366; 96374; 96375; 97162; 99232; 99284; 99285; 99291; C1758; J0696; J1940; J2270; J2405; J2930; U0003

== ENCOUNTER → 2020-08-12 11:47 | Outpatient (BNVA) | payer MEDICARE, SELFPAY | PROVIDERS: PCP Family Medicine; Visit Provider Hospitalist | DX: I11.0 Hypertensive heart disease with heart failure (principal); I50.32 Chronic diastolic (congestive) heart failure; G47.33 Obstructive sleep apnea (adult) (pediatric); J96.11 Chronic respiratory failure with hypoxia; J96.12 Chronic respiratory failure with hypercapnia; Z79.01 Long term (current) use of anticoagulants; Z79.899 Other long term (current) drug therapy | CPT/HCPCS: 99212 ==

== ENCOUNTER → 2020-09-01 10:17 | Outpatient (BNVA) | payer MEDICARE, SELFPAY | PROVIDERS: Visit Provider Orthopaedic Surgery | DX: M17.0 Bilateral primary osteoarthritis of knee (principal); E66.01 Morbid (severe) obesity due to excess calories | CPT/HCPCS: Q3014 ==

== ENCOUNTER → 2020-10-17 09:40 | Outpatient (BNVA) | payer MEDICARE, SELFPAY | PROVIDERS: PCP Family Medicine; Visit Provider Nurse Practitioner Gerontology | DX: Z13.89 Encounter for screening for other disorder (principal) | CPT/HCPCS: Q3014 ==

== ENCOUNTER 2020-11-09 19:24 | Inpatient (IN) | payer MEDICARE, SELFPAY ==
--- NOTE | 2020-11-09 | ECG_ITS ---
Test Reason : DIFFICULTY BREATHING Blood Pressure : / mmHG Vent. Rate : 088 BPM Atrial Rate : 088 BPM P-R Int : 146 ms QRS Dur : 088 ms QT Int : 396 ms P-R-T Axes : 019 -25 006 degrees QTc Int : 479 ms Normal sinus rhythm Voltage criteria for left ventricular hypertrophy Abnormal ECG When compared with ECG of 09-NOV-2020 19:35, Previous ECG has undetermined rhythm, needs review Referred By: Alexandre Cid Electronically Signed By:ESTELITA GEORGES MD
--- NOTE | ~2020-11-09 | XR_ITS ---
EXAMINATION: XR CHEST CLINICAL INFORMATION: Central line placement. COMPARISON: 11/30/2020 chest radiograph. TECHNIQUE: Frontal view of the chest was obtained. FINDINGS: Support devices: Interval placement of right internal jugular catheter with tip terminating at the cavoatrial junction. Enteric tube is seen with tip overlying the proximal stomach. Endotracheal tube with tip approximately 4.5 cm proximal to dee dee. Persistent bilateral patchy opacities without significant interval change. No pneumothorax. The heart and mediastinal structures are unremarkable. XR/XR chest 1V IMPRESSION: 1. Right internal jugular catheter with tip terminating at the cavoatrial junction. 2. Persistent bilateral patchy infiltrates without significant change. No pneumothorax.
--- NOTE | ~2020-11-09 | CT_ITS ---
EXAMINATION: CT CHEST WITHOUT CONTRAST CLINICAL INFORMATION: Covid pneumonia COMPARISON: Multiple priors, most recently chest radiograph from earlier today. CT performed 12/04/2019 TECHNIQUE: Multidetector volumetric CT imaging of the chest was done. Axial MIP volume rendering provided. Sagittal and coronal reformatted images were obtained. This CT examination was performed using dose optimization techniques as appropriate, variously including the following: *Automated exposure control *Adjustment of mA and/or kV according to patient size (this includes techniques or standardized protocols for targeted exams where dose is matched to indication/reason for exam; i.e. extremities or head) *Use of iterative reconstruction technique DLP: 537 mGy-cm FINDINGS: ASSET PROTECTION PROFESSIONAL: Diffuse bilateral airspace opacities are noted. LUNGS: The central airways are patent. There are diffuse patchy groundglass opacities seen throughout both lungs. No separate dense consolidation. No pneumothorax. MEDIASTINUM: Heart size at the upper limit of normal. Coronary artery calcifications are present. No pericardial effusion. No mediastinal lymphadenopathy. The visualized portion of the thyroid gland is unremarkable. PLEURA: There is no pleural effusion. No pleural mass or thickening. AXILLA: No lymphadenopathy. UPPER ABDOMEN: Pneumobilia noted. Cholecystectomy. No acute abnormality of the visualized upper abdomen. OSSEOUS STRUCTURES: No acute or suspicious osseous abnormality. Degenerative changes noted in the spine. CT/CT chest wo con IMPRESSION: Multifocal groundglass opacities are seen throughout both lungs. The appearance is most suggestive of Covid pneumonia.
--- NOTE | ~2020-11-09 | XR_ITS ---
EXAMINATION: XR CHEST CLINICAL INFORMATION: Hypoxia. History COVID pneumonia on CT report. COMPARISON: Chest radiographs 11/09/2020, 07/28/2020, CT chest noncontrast 11/09/2020 TECHNIQUE: Portable upright AP x2 views of the chest was obtained. FINDINGS: There are diffuse bilateral airspace opacities, upper and lower zones, nearly confluent in the mid to lower zones. There are some underlying air bronchograms. No overt effusion. Visualized cardiac contours and bony structures are stable. XR/XR chest 1V IMPRESSION: Diffuse bilateral airspace opacity.
--- NOTE | ~2020-11-09 | XR_ITS ---
EXAMINATION: XR CHEST CLINICAL INFORMATION: None provided COMPARISON: Most recent chest radiograph dated 07/28/2020 along with many prior studies TECHNIQUE: Frontal view of the chest was obtained. FINDINGS: Heart size upper limits of normal. Diffuse bilateral infiltrates are present. No pleural effusions are seen. No pneumothorax. Differential diagnosis would include CHF as well as multifocal pneumonia, favor the latter. XR/XR chest 1V IMPRESSION: Diffuse bilateral pulmonary infiltrates with differential diagnosis including diffuse evolving pneumonia, possibly viral, and CHF with interstitial edema. Should be noted that this patient has had considerable disease present in the lungs on films dating back to at least 2019.
--- NOTE | ~2020-11-09 | XR_ITS ---
EXAMINATION: XR CHEST CLINICAL INFORMATION: Check line and tube placement COMPARISON: Previous chest x-rays most recent from earlier the same day TECHNIQUE: Frontal view of the chest was obtained. FINDINGS: There is an endotracheal tube with tip 2 cm above the dee dee. There is a left jugular line with tip projecting over the cavoatrial junction. There is a nasogastric tube projects over the proximal stomach. The cardiac silhouette is enlarged. There is bilateral diffuse airspace disease. There is no pleural effusion or pneumothorax. XR/XR chest 1V IMPRESSION: Satisfactory position of support line and tubes. The endotracheal tube is 2 cm above the dee dee. Enlarged cardiac silhouette. Diffuse bilateral airspace disease. Differential would include pneumonia, pulmonary edema and the right clinical setting pulmonary hemorrhage.
--- NOTE | ~2020-11-09 | XR_ITS ---
EXAMINATION: XR CHEST CLINICAL INFORMATION: Hypoxia. COMPARISON: Chest 11/21/2020 TECHNIQUE: Frontal view of the chest was obtained. FINDINGS: There is patchy opacities seen throughout both lungs consistent with infiltrates slightly more prominent than the previous exam 11/21/2020. Endotracheal tube is 5.1 cm above the dee dee. Tip of enteric tube is in the stomach. XR/XR chest 1V IMPRESSION: Slight worsening of infiltrates since 11/21/2020 Support lines and catheters are stable.
--- NOTE | ~2020-11-09 | US_ITS ---
EXAMINATION: US VENOUS ULTRASOUND WITH DOPPLER LOWER EXTREMITY, BILATERAL CLINICAL INFORMATION: Bilateral lower extremity edema. Concern for DVT. Covid positive. COMPARISON: Bilateral venous Doppler ultrasound dated 02/21/2020. TECHNIQUE: Ultrasound of the deep veins is performed from the hip to the calf with compression sonography and color and pulse Doppler assessment. Spectral analysis with color-flow imaging is performed. FINDINGS: RIGHT: The examination is limited secondary to body habitus. There is normal venous compression and respiratory variation and augmented flow. The visualized common femoral vein, superficial femoral vein, profunda femoral vein, and show no evidence of deep venous thrombosis. The popliteal vein and the trifurcation region are poorly characterized in the posterior tibial vein is not definitively appreciated. There is no popliteal fossa cyst. LEFT: There is normal venous compression and respiratory variation and augmented flow. The visualized common femoral vein, superficial femoral vein, profunda femoral vein, and popliteal vein show no evidence of deep venous thrombosis. The trifurcation region is poorly characterized. Posterior tibial veins and peroneal veins are not definitively seen. There is no popliteal fossa cyst. If the patient's symptoms persist, followup ultrasound in 5 days 7 days might be of value to exclude proximal propagation from a non-visualized calf vein. US/US venous duplex LE BI IMPRESSION: No DVT demonstrated in the visualized lower extremity venous vasculature bilaterally. Compromised visualization of portions of the bilateral venous vasculature as described above secondary to habitus and immobility.
--- NOTE | ~2020-11-09 | XR_ITS ---
EXAMINATION: XR CHEST CLINICAL INFORMATION: COVID pneumonia. Follow up. COMPARISON: Portable AP chest 12/01/2020, 11/30/2020, 11/21/2020, 11/09/2020 TECHNIQUE: Portable upright AP view of the chest was obtained. FINDINGS: Patient is slightly rotated. There are low lung volumes. Diffuse airspace consolidation is seen, more confluent on left with some fine bilateral air bronchograms. Airspace opacities are increased from prior exam 12/01/2020. Right internal jugular central line is again noted. There is a tracheostomy tube with tip approximately 3.4 cm above dee dee. XR/XR chest 1V IMPRESSION: Diffuse pulmonary opacities increased from prior exam 12/01/2020.
--- NOTE | ~2020-11-09 | XR_ITS ---
EXAMINATION: XR CHEST CLINICAL INFORMATION: Covid, question pulmonary edema COMPARISON: 11/18/2020 TECHNIQUE: Frontal view of the chest was obtained. FINDINGS: Endotracheal tube tip lies 4.2 cm above the dee dee. Enteric tube courses into the stomach. Left IJ central line tip lies in the region of the cavoatrial junction. Lung volumes are symmetric. There is improved aeration compared to prior with residual heterogeneous haziness bilaterally. No pneumothorax is seen. No definite pleural effusion. Cardiac size is within normal limits. Calcification is present at the aortic arch. No acute osseous findings are seen. XR/XR chest 1V IMPRESSION: Interval improvement in aeration bilaterally with residual heterogeneous haziness which may represent edema.
[2020-11-09 19:37] VITALS: BP 139/66; PULSE 83; RESP 36; TEMP 37.2; O2SAT 94; BMI 53.2
--- NOTE | 2020-11-09 19:38 | ED_ITS ---
HPI - SOB/Dyspnea General Chief Complaint: Dyspnea Stated Complaint: sob ?COVID Time Seen by Provider: 11/09/20 19:30 Source: patient and EMS Mode of arrival: EMS Limitations: no limitations History of Present Illness HPI Narrative: Patient's history of CHF sleep apnea history of respiratory failure atrial fibrillation came here for increased shortness of breath for last 1 week saturating 50% at room air on arrival received albuterol treatment without any relief patient denies any chest pain or COVID contact no fever patient not on any oxygen at home having dry cough patient denies any chest patient does have a CPAP at home and is noncompliant last admission with similar situation was in 08/03/2020 and that time patient had acute on chronic diastolic failure with acute hypoxic and hypercapnic respiratory failure secondary to sleep apnea and COPD patient had alveolar hemorrhage in 2019 after she was on an ticoagulants for AFib PATIENT TESTED 5 TIMES FOR COVID NEGATIVE LAST ONE WAS IN 08/08 MD elicited complaint: shortness of breath and cough Pertinent past history: COPD and congestive heart failure Onset (ago): day(s) (7) Timing: constant Severity: severe Exacerbating factors: nothing Relieving factors: oxygen Known history of: COPD and congestive heart failure Treatment prior to arrival: oxygen and bronchodilator Related Data Home Medications Medication Instructions Recorded Confirmed Eliquis 5 mg PO BID 07/22/20 10/17/20 Flovent HFA 1 puff INHALATION BID 07/22/20 10/17/20 Incruse Ellipta 1 inh INHALATION DAILY 07/22/20 10/17/20 acetaminophen 650 mg PO Q8H PRN 07/22/20 10/17/20 albuterol sulfate 2.5 mg INHALATION Q4H PRN 07/22/20 10/17/20 amlodipine [Norvasc] 5 mg PO DAILY 07/22/20 10/17/20 atorvastatin 80 mg PO DAILY 07/22/20 10/17/20 melatonin 3 mg PO BEDTIME PRN 07/22/20 10/17/20 metoprolol tartrate 75 mg PO BID 07/22/20 10/17/20 olanzapine [Zyprexa] 15 mg PO BEDTIME 07/22/20 10/17/20 pantoprazole [Protonix] 20 mg PO DAILY 07/22/20 10/17/20 potassium chloride [Klor-Con M20] 20 meq PO DAILY 07/22/20 10/17/20 sertraline 200 mg PO DAILY 07/22/20 10/17/20 spironolactone 50 mg PO DAILY 07/22/20 10/17/20 acetazolamide 250 mg tablet 250 mg PO BID tab 10/17/20 10/17/20 bumetanide 2 mg tablet 2 mg PO DAILY tab 10/17/20 10/17/20 Previous Rx's Medication Instructions Recorded albuterol sulfate [Ventolin HFA] 4 puff INHALATION Q3H PRN #1 g 08/03/20 metolazone 2.5 mg PO ONCE PRN #30 tab 08/03/20 trazodone 100 mg PO BEDTIME PRN #0 tab 08/03/20 isosorbide mononitrate 60 mg 60 mg PO QAM #90 tab 09/11/20 tablet,extended release 24 hr insulin degludec 100 unit/mL (3 60 unit SUBCUT BEDTIME 90 Days #60 10/17/20 mL) subcutaneous pen ml metformin 500 mg tablet,extended 500 mg PO BID 90 Days #180 tab 10/17/20 release 24hr insulin aspart U-100 100 unit/mL See Rx Instructions SUBCUT TID 90 10/21/20 (3 mL) subcutaneous pen Days #60 ml Allergies Allergy/AdvReac Type Severity Reaction Status Date / Time nitrofurantoin Allergy Intermediate SWELLING Verified 10/17/20 11:23 [From MACROBID] azithromycin [Azithromycin] Allergy Mild SWELLING Verified 10/17/20 11:23 Zithromax Allergy Unknown Swelling Uncoded 10/17/20 11:23 Review of Systems Review of Systems: Constitutional : No Weight loss, No Fever, No Chills ENT/Mouth : No sore throat, No Rhinorrhea Eyes: No Eye Pain, No Swelling Cardiovascular : No Chest Pain, no palpitations Respiratory : + Cough, No Sputum, ++ shortness of breath Gastrointestinal : no Nausea, No Vomiting, No Diarrhea, No abdominal Pain, no black stools Genitourinary : No Dysuria, No Urinary Frequency Musculoskeletal : No joint pain, No Myalgias, No Joint Swelling Skin : No Skin Lesions, No rash Neuro : No Weakness, No Numbness, No Dizziness, No Headache Psych : No Anxiety/Panic, No Depression Heme/Lymph: No Bruising, No Lymphadenopathy Endocrine : No Polyuria, No Polydipsia All other systems reviewed and are negative [facility] Past Medical History Medical History CAD (coronary artery disease) CHF (congestive heart failure) Chronic heart failure with preserved ejection fraction (HFpEF) Chronic pancreatitis COPD (chronic obstructive pulmonary disease) COPD (chronic obstructive pulmonary disease) Degenerative arthritis of knee, bilateral Diverticulosis Dysuria Essential hypertension Hyperlipidemia LDL goal <70 Hypertensive heart disease Memory loss Morbid obesity due to excess calories Pulmonary embolism Respiratory failure with hypoxia and hypercapnia Right heart failure (secondary to left heart failure) SVT (supraventricular tachycardia) Type 2 diabetes mellitus with chronic kidney disease Type 2 diabetes mellitus with diabetic polyneuropathy Type 2 diabetes mellitus with hyperglycemia, with long-term current use of insulin Vertigo Surgical History Hx of cardiac catheterization Family History Family History Father CVD (cardiovascular disease) Mother No problems noted. Maternal Grandmother Diabetes Maternal Uncle Diabetes Maternal Aunt Diabetes Social History Social History Household Members: Children Housing: Apartment Alcohol intake: never Smoking Status: Never smoker Second Hand Smoke Exposure: No Use of substances other than those prescribed or required for medical reasons: No Advance Directives: No Advance Directives Information Provided: No Advance Directives Date on File: 11/30/19 service: No Current occupational status: disabled Physical Exam Vital Signs: Vital Signs: Last Vital Signs Temp 98.9 F 11/09/20 19:37 Pulse 79 11/09/20 22:36 Resp 23 H 11/09/20 23:26 BP 144/70 H 11/09/20 22:36 Pulse Ox 95 11/09/20 22:36 Body Mass Index 53.2 Const: General: in distress severe and respiratory and ill appearing Nutritional Appearance: obese Orientation/consciousness: patient oriented x3 HENMT: Head: Yes normal to inspection Ears: hearing grossly normal bilaterally General nose exam: Normal external nose present Eyes: General: appearance normal, both eyes and all related structures Conjunctivae: conjunctivae normal Sclerae: sclerae normal Pupils: Equal, round and reactive pupils present Neck: Neck: Yes normal visual inspection Thyroid: Thyroid normal Caroti ds: normal carotid upstroke Chest: Chest palpation & inspection: normal palpation of entire chest wall Resp: Effort & Inspection: labored and tachypneic Auscultation: crackles (Occasional bilateral bases), no rales, rhonchi, wheezes and diminished lung sounds Cardio: Jugular venous distension: no JVD Palpation: normal PMI Rate: regular rate Rhythm: regular rhythm Heart sounds: S1 normal heart sound present, S2 normal heart sound present and Murmur heart sound present (Right Parasternal pansystolic) Peripheral pulses: Peripheral pulses 2+ throughout GI: Inspection: Yes normal to inspection Palpation (GI): Soft to palpation and nontender Auscultation: normal bowel sounds : General: Yes no CVA tenderness Back/Spine/Pelvis: Back: no CVA tenderness Thoracic/Lumbar Spine: thoracic and lumbar spine normal to inspection Skin: General skin exam: no rashes or lesions noted Neuro: General: patient oriented x3 and no focal motor deficits Cranial nerves: Yes Equal, round and reactive pupils present Extrem: General: Yes no calf tenderness and Yes pedal edema (2+) MDM - SOB/Dyspnea MDM Narrative Medical decision making narrative: Patient with cough increased shortness of breath with no fever although her previous COVID test were negative repeat testing in the ER showed positive COVID. Chest x-ray showed diffuse infiltrates BNP is 187 is less than before, was 500 in 07/28 at this time patient has symptoms of COVID . Patient does take Eliquis will do CT chest to see the extent of infiltrates. Patient was placed on BiPAP plan to admit patient for supportive treatment venous gases showed normal pCO2 level initially patient started on BiPAP now she is on high-flow oxygen and saturating 95% will admit to medical floor Differential Diagnosis Differential diagnosis: Likely acute exacerbation of chronic obstructive airways disease, congestive heart failure and pneumonia Medical Records Attestation: I reviewed the patient's medical records. Lab Data Attestation: I reviewed the patient's lab results. Result diagrams: 11/09/20 19:57 11/09/20 20:54 Labs: Lab Results 11/09/20 11/09/20 11/09/20 Range/Units 19:43 19:57 19:57 WBC 7.4 (4.8-10.8) X10*3/uL RBC 4.84 D (4.20-5.50) X10*6/uL Hgb 12.4 D (12.0-16.0) g/dl Hct 39.2 D (37-47) % MCV 81.0 (80-98) fL MCH 25.6 L (27.0-33.0) pg MCHC 31.6 (31.0-35.0) g/dl RDW 15.9 (11.0-16.0) % Plt Count 163 (160-400) X10*3/uL MPV 9.7 (9.4-12.3) fL Immature Gran % (Auto) 0.9 H (0.0-0.4) % Neut % (Auto) 86.4 H (45-73) % Lymph % (Auto) 8.9 L (20-40) % [place] % (Auto) 3.8 (2-11) % Eos % (Auto) 0.0 (0-4) % Baso % (Auto) 0.0 (0-2) % Lymph # (Auto) 0.7 L (1.2-4.9) X10*3/uL [place] # (Auto) 0.3 (0.1-1.2) X10*3/uL Eos # (Auto) 0.0 (0.0-0.4) X10*3/uL Baso # (Auto) 0.0 (0.0-0.2) X10*3/uL Abs Immat Gran (auto) 0.07 H (0.00-0.03) X10*3/uL Absolute Neuts (auto) 6.4 (2.0-8.3) X10*3/uL Absolute Nucleated RBC 0.000 (0.0-0.012) X10*3/uL Nucleated RBC % (auto) 0.0 (0.0-0.2) /100WBC Smear Tech's Comments VERIFIED PT 17.5 H (10.8-13.0) SEC INR 1.5 H (0.9-1.1) APTT 37.8 (24.1-38.0) SEC D-Dimer 453 NG/ML VBG pH (7.32-7.43) VBG pCO2 mmHg VBG pO2 mmHg VBG HCO3 mmol/L VBG O2 Saturation % VBG Base Excess mmol/L Sodium (135-145) mmol/L Potassium (3.3-5.1) mmol/L Chloride (96-108) mmol/L Carbon Dioxide (22-29) mmol/L Anion Gap (12-20) BUN (9-16) mg/dL Creatinine (0.5-1.4) mg/dL Estim Creat Clear Calc Estimated GFR Random Glucose (60-115) mg/dL Lactic Acid (0.5-2.0) mmol/L Calcium (8.4-10.2) mg/dL Ferritin (10-250) ng/mL Total Bilirubin (0.0-1.0) mg/dL Direct Bilirubin (0.0-0.5) mg/dL AST (5-31) U/L ALT (0-31) U/L Alkaline Phosphatase (39-117) U/L Lactate Dehydrogenase (122-220) U/L Troponin I High Sens (<3.5-17.0) ng/L C-Reactive Protein (< or = 0.50) mg/dL B-Natriuretic Peptide (<100) pg/mL Total Protein (6.5-8.0) g/dL Albumin (3.5-5.0) g/dL Coronavirus (PCR) POSITIVE A (Negative) Influenza Type A (PCR) NEGATIVE (Negative) Influenza Type B (PCR) NEGATIVE (Negative) RSV RNA Qual (PCR) NEGATIVE (Negative) 11/09/20 11/09/20 11/09/20 Range/Units 19:57 19:57 19:57 WBC (4.8-10.8) X10*3/uL RBC (4.20-5.50) X10*6/uL Hgb (12.0-16.0) g/dl Hct (37-47) % MCV (80-98) fL MCH (27.0-33.0) pg MCHC (31.0-35.0) g/dl RDW (11.0-16.0) % Plt Count (160-400) X10*3/uL MPV (9.4-12.3) fL Immature Gran % (Auto) (0.0-0.4) % Neut % (Auto) (45-73) % Lymph % (Auto) (20-40) % [place] % (Auto) (2-11) % Eos % (Auto) (0-4) % Baso % (Auto) (0-2) % Lymph # (Auto) (1.2-4.9) X10*3/uL [place] # (Auto) (0.1-1.2) X10*3/uL Eos # (Auto) (0.0-0.4) X10*3/uL Baso # (Auto) (0.0-0.2) X10*3/uL Abs Immat Gran (auto) (0.00-0.03) X10*3/uL Absolute Neuts (auto) (2.0-8.3) X10*3/uL Absolute Nucleated RBC (0.0-0.012) X10*3/uL Nucleated RBC % (auto) (0.0-0.2) /100WBC Smear Tech's Comments PT (10.8-13.0) SEC INR (0.9-1.1) APTT (24.1-38.0) SEC D-Dimer NG/ML VBG pH 7.30 L (7.32-7.43) VBG pCO2 49 mmHg VBG pO2 30 mmHg VBG HCO3 24 mmol/L VBG O2 Saturation 37.0 % VBG Base Excess -2.1 mmol/L Sodium (135-145) mmol/L Potassium (3.3-5.1) mmol/L Chloride (96-108) mmol/L Carbon Dioxide (22-29) mmol/L Anion Gap (12-20) BUN (9-16) mg/dL Creatinine (0.5-1.4) mg/dL Estim Creat Clear Calc Estimated GFR Random Glucose (60-115) mg/dL Lactic Acid 1.2 (0.5-2.0) mmol/L Calcium (8.4-10.2) mg/dL Ferritin (10-250) ng/mL Total Bilirubin (0.0-1.0) mg/dL Direct Bilirubin (0.0-0.5) mg/dL AST (5-31) U/L ALT (0-31) U/L Alkaline Phosphatase (39-117) U/L Lactate Dehydrogenase (122-220) U/L Troponin I High Sens 7.5 D (<3.5-17.0) ng/L C-Reactive Protein (< or = 0.50) mg/dL B-Natriuretic Peptide 187 H (<100) pg/mL Total Protein (6.5-8.0) g/dL Albumin (3.5-5.0) g/dL Coronavirus (PCR) (Negative) Influenza Type A (PCR) (Negative) Influenza Type B (PCR) (Negative) RSV RNA Qual (PCR) (Negative) 11/09/20 Range/Units 20:54 WBC (4.8-10.8) X10*3/uL RBC (4.20-5.50) X10*6/uL Hgb (12.0-16.0) g/dl Hct (37-47) % MCV (80-98) fL MCH (27.0-33.0) pg MCHC (31.0-35.0) g/dl RDW (11.0-16.0) % Plt Count (160-400) X10*3/uL MPV (9.4-12.3) fL Immature Gran % (Auto) (0.0-0.4) % Neut % (Auto) (45-73) % Lymph % (Auto) (20-40) % [place] % (Auto) (2-11) % Eos % (Auto) (0-4) % Baso % (Auto) (0-2) % Lymph # (Auto) (1.2-4.9) X10*3/uL [place] # (Auto) (0.1-1.2) X10*3/uL Eos # (Auto) (0.0-0.4) X10*3/uL Baso # (Auto) (0.0-0.2) X10*3/uL Abs Immat Gran (auto) (0.00-0.03) X10*3/uL Absolute Neuts (auto) (2.0-8.3) X10*3/uL Absolute Nucleated RBC (0.0-0.012) X10*3/uL Nucleated RBC % (auto) (0.0-0.2) /100WBC Smear Tech's Comments PT (10.8-13.0) SEC INR (0.9-1.1) APTT (24.1-38.0) SEC D-Dimer NG/ML VBG pH (7.32-7.43) VBG pCO2 mmHg VBG pO2 mmHg VBG HCO3 mmol/L VBG O2 Saturation % VBG Base Excess mmol/L Sodium 128 L (135-145) mmol/L Potassium 3.5 (3.3-5.1) mmol/L Chloride 89 L (96-108) mmol/L Carbon Dioxide 24 (22-29) mmol/L Anion Gap 19 (12-20) BUN 36 H (9-16) mg/dL Creatinine 1.35 (0.5-1.4) mg/dL Estim Creat Clear Calc 60.9 Estimated GFR 39 Random Glucose 169 H (60-115) mg/dL Lactic Acid (0.5-2.0) mmol/L Calcium 7.7 L D (8.4-10.2) mg/dL Ferritin 1887 H (10-250) ng/mL Total Bilirubin 1.0 (0.0-1.0) mg/dL Direct Bilirubin 0.6 H (0.0-0.5) mg/dL AST 64 H (5-31) U/L ALT 31 (0-31) U/L Alkaline Phosphatase 122 H (39-117) U/L Lactate Dehydrogenase 564 H (122-220) U/L Troponin I High Sens (<3.5-17.0) ng/L C-Reactive Protein 14.44 H (< or = 0.50) mg/dL B-Natriuretic Peptide (<100) pg/mL Total Protein 6.9 (6.5-8.0) g/dL Albumin 3.8 (3.5-5.0) g/dL Coronavirus (PCR) (Negative) Influenza Type A (PCR) (Negative) Influenza Type B (PCR) (Negative) RSV RNA Qual (PCR) (Negative) ECG Data Attestation: I personally reviewed and interpreted this ECG as follows: Interpretation: Normal sinus rhythm LVH no acute ST T wave changes heart rate 86 beats per minutes Repeat EKG done at 00:01 which shows normal sinus rhythm heart rate of 79 beats per minute LVH no acute ST T wave changes normal axis and normal intervals Critical Care Time Critical Care Time Critical Care Time: Yes Total Critical Care Time: 50 Attestation: I spent 50minutes of critical care, with interventions, assessments and speaking to patient, Discharge Plan Discharge Clinical Impression: Pneumonia due to 2019-nCoV, Hypoxia Patient Disposition: Admitted As Inpatient
[2020-11-09 20:00] VITALS: PULSE 83; RESP 38; O2SAT 91
[2020-11-09] MEDS: Albuterol Sulfate (0.083%) 2.5 MG/3 ML VIAL.NEB 5 MG INHALE (20:00)
[2020-11-09] MEDS: Albuterol/Iprat 2.5/0.5MG 3 ML AMPUL.NEB INHALE (20:00)
[2020-11-09 20:03] VITALS: PULSE 84; O2SAT 91
[2020-11-09 20:04] LABS: Hematocrit 39.2 % (37-47); Hemoglobin 12.4 g/dl (12.0-16.0); Imm Gran Abs Auto 0.07 X10*3/uL (0.00-0.03); Imm Gran Pct Auto 0.9 % (0.0-0.4); Lymphocytes Absolute Auto 0.7 X10*3/uL (1.2-4.9); Lymphocytes Percent Auto 8.9 % (20-40); MANUAL DIFF FLAG SCAN; Mean Corpuscular HGB Conc 31.6 g/dl (31.0-35.0); Mean Corpuscular Hemoglobin 25.6 pg (27.0-33.0); Mean Platelet Volume 9.7 fL (9.4-12.3); Monocytes Absolute Auto 0.3 X10*3/uL (0.1-1.2); Monocytes Percent Auto 3.8 % (2-11); Neutrophils Absolute Auto 6.4 X10*3/uL (2.0-8.3); Neutrophils Percent Auto 86.4 % (45-73); Platelet Count 163 X10*3/uL (160-400); Red Blood Count 4.84 X10*6/uL (4.20-5.50); Red Cell Distribution Width 15.9 % (11.0-16.0); SCAN SMEAR FLAG 1; White Blood Count 7.4 X10*3/uL (4.8-10.8)
[2020-11-09 20:06] LABS: Base Excess VBG -2.1 mmol/L; HCO3 VBG 24 mmol/L; PCO2 VBG 49 mmHg; PO2 VBG 30 mmHg
[2020-11-09 20:10] LABS: INTERNATIONAL NORM RATIO 1.5 (0.9-1.1); Prothrombin Time 17.5 SEC (10.8-13.0)
[2020-11-09 20:13] LABS: Partial Thromboplastin Time 37.8 SEC (24.1-38.0)
--- NOTE | 2020-11-09 20:15 | PC.NURSE ---
PATIENT HAVING CHEST PAIN AT THIS TIME. DR JEROME AWARE.
[2020-11-09 20:20] LABS: Lactic Acid 1.2 mmol/L (0.5-2.0)
[2020-11-09 20:23] LABS: SLIDE REVIEW VERIFIED
[2020-11-09 20:29] LABS: Influenza A PCR NEGATIVE (Negative); Influenza B PCR NEGATIVE (Negative); Resp Syncy Virus RNA Qual PCR NEGATIVE (Negative); SARS COV2 PCR INHOUSE POSITIVE (Negative)
[2020-11-09 20:31] LABS: B Type Natriuretic Peptide 187 pg/mL (<100); Troponin-I High Sensitivity 7.5 ng/L (<3.5-17.0)
[2020-11-09 21:13] LABS: D Dimer 453 NG/ML
[2020-11-09 21:24] LABS: Alanine Aminotransferase 31 U/L (0-31); Albumin Level 3.8 g/dL (3.5-5.0); Alkaline Phosphatase 122 U/L (39-117); Anion Gap 19 (12-20); Aspartate Amino Transferase 64 U/L (5-31); Bilirubin Direct 0.6 mg/dL (0.0-0.5); Blood Urea Nitrogen 36 mg/dL (9-16); C Reactive Protein 14.44 mg/dL (< or = 0.50); Calcium 7.7 mg/dL (8.4-10.2); Carbon Dioxide 24 mmol/L (22-29); Chloride 89 mmol/L (96-108); Creatinine Clr Calc Pharmacy 60.9; Estimated Glomerular Filt Rate 39; Glucose Random 169 mg/dL (60-115); Lactate Dehydrogenase 564 U/L (122-220); Potassium 3.5 mmol/L (3.3-5.1); Sodium 128 mmol/L (135-145); Total Protein 6.9 g/dL (6.5-8.0)
[2020-11-09 21:58] VITALS: PULSE 81; RESP 36; O2SAT 94
[2020-11-09] MEDS: cefTRIAXone sodium 1 GM in 0.9 % Sodium Chloride 50 ML IV (21:59)
[2020-11-09 22:36] VITALS: BP 144/70; PULSE 79; O2SAT 95
[2020-11-09 22:55] LABS: Ferritin 1887 ng/mL (10-250)
[2020-11-09 23:26] VITALS: PULSE 97; RESP 23; O2SAT 92
--- NOTE | 2020-11-09 23:37 | P.HPHOSP_ITS ---
History of Present Illness Date of Service: 11/09/20 Chief Complaint: Shortness of breath 65-year-old female with a past medical history of hypertension, hyperlipidemia, diabetes, coronary artery disease, CHF, paroxysmal AFib on Eliquis, arthritis presented to the hospital with a chief complaint of shortness of breath. Patient reports that she has been having shortness of breath for the past 1 week associated with dry cough. Denies any numbness tingling chest pain palpitations lightheadedness or dizziness. Denies any GI or symptoms. Review of all other systems is negative except mentioned above ER course: Per ER team patient noted to be in mild respiratory distress placed on CPAP and subsequently transitioned to high-flow oxygen. COVID came back positive, chest x-ray showed infiltrates. Also noted a mild hyponatremia. Admitted to the hospital for further management. [facility] Medical History CAD (coronary artery disease) CHF (congestive heart failure) Chronic heart failure with preserved ejection fraction (HFpEF) Chronic pancreatitis COPD (chronic obstructive pulmonary disease) COPD (chronic obstructive pulmonary disease) Degenerative arthritis of knee, bilateral Diverticulosis Dysuria Essential hypertension Hyperlipidemia LDL goal <70 Hypertensive heart disease Memory loss Morbid obesity due to excess calories Pulmonary embolism Respiratory failure with hypoxia and hypercapnia Right heart failure (secondary to left heart failure) SVT (supraventricular tachycardia) 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 Maternal Grandmother Diabetes Maternal Uncle Diabetes Maternal Aunt Diabetes Surgical History Hx of cardiac catheterization Social History Household Members: Children Housing: Apartment Alcohol intake: never Smoking Status: Never smoker Second Hand Smoke Exposure: No Use of substances other than those prescribed or required for medical reasons: No Advance Directives: No Advance Directives Information Provided: No Advance Directives Date on File: 11/30/19 service: No Current occupational status: disabled Meds Allergies Allergy/AdvReac Type Severity Reaction Status Date / Time nitrofurantoin Allergy Intermediate SWELLING Verified 10/17/20 11:23 [From MACROBID] azithromycin [Azithromycin] Allergy Mild SWELLING Verified 10/17/20 11:23 Zithromax Allergy Unknown Swelling Uncoded 10/17/20 11:23 Active Medications: Current Medications Generic Name Dose Route Start Last Admin Trade Name Freq PRN Reason Stop Dose Admin Acetaminophen 650 mg 11/09/20 23:12 Acetaminophen 325 Mg Tablet PO Q6H PRN Pain, Mild (Pain Scale 1-3) Dexamethasone 6 mg 11/10/20 09:00 Dexamethasone 6 Mg Tablet PO DAILY [facility] Doxycycline Hyclate 100 mg 11/09/20 23:15 Doxycycline Hyclate 100 Mg Tablet PO Q12H [facility] Ceftriaxone Sodium 1 gm/ 50 mls @ 100 mls/hr 11/09/20 23:15 Sodium Chloride IV Q24H [facility] Insulin Human Lispro 0 unit 11/10/20 07:30 Insulin Lispro 100 Unit/Ml 3 Ml Vial SUBCUT QIDACHS [facility] Sodium Chloride 3 ml 11/10/20 00:00 0.9 % Sodium Chloride Flush 3 Ml Syringe IVFLUSH QSHIFT [facility] Home Medications Medication Instructions Recorded Confirmed Last Taken Type Eliquis 5 mg PO BID 07/22/20 11/10/20 Unknown History Flovent HFA 1 puff INHALATION BID 07/22/20 11/10/20 Unknown History Incruse Ellipta 1 inh INHALATION DAILY 07/22/20 11/10/20 Unknown History acetaminophen 650 mg PO Q8H PRN 07/22/20 11/10/20 Unknown History albuterol sulfate 2.5 mg INHALATION Q4H PRN 07/22/20 11/10/20 Unknown History amlodipine [Norvasc] 5 mg PO DAILY 07/22/20 11/10/20 Unknown History atorvastatin 80 mg PO DAILY 07/22/20 11/10/20 Unknown History melatonin 3 mg PO BEDTIME PRN 07/22/20 11/10/20 Unknown History metoprolol tartrate 75 mg PO BID 07/22/20 11/10/20 Unknown History olanzapine [Zyprexa] 15 mg PO BEDTIME 07/22/20 11/10/20 Unknown History pantoprazole [Protonix] 20 mg PO DAILY 07/22/20 11/10/20 Unknown History potassium chloride [Klor-Con M20] 20 meq PO DAILY 07/22/20 11/10/20 Unknown History sertraline 200 mg PO DAILY 07/22/20 11/10/20 Unknown History spironolactone 50 mg PO DAILY 07/22/20 11/10/20 Unknown History acetazolamide 250 mg tablet 250 mg PO BID tab 10/17/20 11/10/20 Unknown History bumetanide 2 mg tablet 2 mg PO DAILY tab 10/17/20 11/10/20 Unknown History Physical Exam Vital Signs and Narrative: Vital Signs: Last Vital Signs Temp 98.9 F 11/09/20 19:37 Pulse 79 11/09/20 22:36 Resp 23 H 11/09/20 23:26 BP 144/70 H 11/09/20 22:36 Pulse Ox 95 11/09/20 22:36 Body Mass Index 53.2 Gen: Appears be in no acute distress HEENT: NCAT, Moist mucosa. Pulmonary: Course breath sounds, fair air entry CVS: Normal S1-S2 Abdomen: BS+, Soft, Nontender Extremities: Warm well perfused Neuro: Alert and awake. Results Labs CBC and Chem 7: 11/09/20 19:57 11/09/20 20:54 Labs: Laboratory Results - last 24 hr 11/09/20 11/09/20 11/09/20 19:43 19:57 19:57 MCV 81.0 MCH 25.6 L MCHC 31.6 RDW 15.9 Plt Count 163 MPV 9.7 Immature Gran % (Auto) 0.9 H Neut % (Auto) 86.4 H Lymph % (Auto) 8.9 L [place] % (Auto) 3.8 Eos % (Auto) 0.0 Baso % (Auto) 0.0 Lymph # (Auto) 0.7 L [place] # (Auto) 0.3 Eos # (Auto) 0.0 Baso # (Auto) 0.0 Abs Immat Gran (auto) 0.07 H Absolute Neuts (auto) 6.4 Absolute Nucleated RBC 0.000 Nucleated RBC % (auto) 0.0 Smear Tech's Comments VERIFIED PT 17.5 H INR 1.5 H APTT 37.8 D-Dimer 453 VBG pH VBG pCO2 VBG pO2 VBG HCO3 VBG O2 Saturation VBG Base Excess Anion Gap Estim Creat Clear Calc Estimated GFR Random Glucose Lactic Acid Calcium Ferritin Total Bilirubin Direct Bilirubin AST ALT Alkaline Phosphatase Lactate Dehydrogenase Troponin I High Sens C-Reactive Protein B-Natriuretic Peptide Total Protein Albumin Coronavirus (PCR) POSITIVE A Influenza Type A (PCR) NEGATIVE Influenza Type B (PCR) NEGATIVE RSV RNA Qual (PCR) NEGATIVE 11/09/20 11/09/20 11/09/20 19:57 19:57 19:57 MCV MCH MCHC RDW Plt Count MPV Immature Gran % (Auto) Neut % (Auto) Lymph % (Auto) [place] % (Auto) Eos % (Auto) Baso % (Auto) Lymph # (Auto) [place] # (Auto) Eos # (Auto) Baso # (Auto) Abs Immat Gran (auto) Absolute Neuts (auto) Absolute Nucleated RBC Nucleated RBC % (auto) Smear Tech's Comments PT INR APTT D-Dimer VBG pH 7.30 L VBG pCO2 49 VBG pO2 30 VBG HCO3 24 VBG O2 Saturation 37.0 VBG Base Excess -2.1 Anion Gap Estim Creat Clear Calc Estimated GFR Random Glucose Lactic Acid 1.2 Calcium Ferritin Total Bilirubin Direct Bilirubin AST ALT Alkaline Phosphatase Lactate Dehydrogenase Troponin I High Sens 7.5 D C-Reactive Protein B-Natriuretic Peptide 187 H Total Protein Albumin Coronavirus (PCR) Influenza Type A (PCR) Influenza Type B (PCR) RSV RNA Qual (PCR) 11/09/20 20:54 MCV MCH MCHC RDW Plt Count MPV Immature Gran % (Auto) Neut % (Auto) Lymph % (Auto) [place] % (Auto) Eos % (Auto) Baso % (Auto) Lymph # (Auto) [place] # (Auto) Eos # (Auto) Baso # (Auto) Abs Immat Gran (auto) Absolute Neuts (auto) Absolute Nucleated RBC Nucleated RBC % (auto) Smear Tech's Comments PT INR APTT D-Dimer VBG pH VBG pCO2 VBG pO2 VBG HCO3 VBG O2 Saturation VBG Base Excess Anion Gap 19 Estim Creat Clear Calc 60.9 Estimated GFR 39 Random Glucose 169 H Lactic Acid Calcium 7.7 L D Ferritin 1887 H Total Bilirubin 1.0 Direct Bilirubin 0.6 H AST 64 H ALT 31 Alkaline Phosphatase 122 H Lactate Dehydrogenase 564 H Troponin I High Sens C-Reactive Protein 14.44 H B-Natriuretic Peptide Total Protein 6.9 Albumin 3.8 Coronavirus (PCR) Influenza Type A (PCR) Influenza Type B (PCR) RSV RNA Qual (PCR) Imaging Radiologist's Impressions: Impressions Chest X-Ray 11/09/20 19:39 IMPRESSION: Diffuse bilateral pulmonary infiltrates with differential diagnosis including diffuse evolving pneumonia, possibly viral, and CHF with interstitial edema. Should be noted that this patient has had considerable disease present in the lungs on films dating back to at least 2019. Chest CT 11/09/20 21:49 IMPRESSION: Multifocal groundglass opacities are seen throughout both lungs. The appearance is most suggestive of Covid pneumonia. Assessment and Plan (1) Pneumonia due to COVID-19 virus: Status: Acute 65-year-old female with a past medical history of hypertension, hyperlip idemia, diabetes, coronary artery disease, CHF, AFib on Eliquis, arthritis presented to the hospital with a chief complaint of shortness of breath/dry cough noted to have COVID-19 pneumonia. Patient also noted to be in mild respiratory distress-on CPAP briefly in the ER subsequently transition to high- flow oxygen. Admitted to the hospital for further management. Acute hypoxic respiratory failure: In the setting of COVID-19 pneumonia. Patient initially required CPAP. ABG showed pH of 7.3. Subsequently transitioned to high-flow oxygen. COVID-19 pneumonia: Continue dexamethasone, ceftriaxone, azithromycin. Id consult Isolation precautions AFib: Rate controlled. Patient noted with this. CHF: Patient currently appears euvolemic. Continue home medications. Hypertension/hyperlipidemia: Continue home medications. Diabetes: Insulin sliding scale Obesity: Patient likely had MOISÉS. Patient recommended outpatient sleep studies. Possibly benefit CPAP. DVT prophylaxis: Patient on Eliquis Code status: Full code
[2020-11-10] VITALS (13 sets, daily range): BP systolic 118–155; BP diastolic 56–76; PULSE 68–86; RESP 18–24; TEMP 35.8–36.8; O2SAT 91–96; BMI 53.2
[2020-11-10] MEDS: Doxycycline Hyclate 100 MG in 0.9 % Sodium Chloride 250 ML 166.67 MG IV (00:06)
--- NOTE | 2020-11-10 00:09 | ECG_ITS ---
Test Reason : CP Blood Pressure : / mmHG Vent. Rate : 079 BPM Atrial Rate : 079 BPM P-R Int : 146 ms QRS Dur : 096 ms QT Int : 416 ms P-R-T Axes : 000 -27 -19 degrees QTc Int : 477 ms Normal sinus rhythm Voltage criteria for left ventricular hypertrophy Abnormal ECG When compared with ECG of 09-NOV-2020 20:22, No significant change was found Referred By: Alexandre Cid Electronically Signed By:ESTELITA GEORGES MD
[2020-11-10 00:29] LABS: Glucose, Whole Blood 201 mg/dL (60-115)
[2020-11-10] MEDS: OLANZapine 7.5 MG TABLET 15 MG PO ×2 (02:01→21:42)
[2020-11-10] MEDS: Melatonin 3 MG TABLET PO (02:01)
[2020-11-10] MEDS: traZODone HCL 100 MG TABLET PO ×2 (02:01→23:03)
[2020-11-10 06:55] LABS: Hematocrit 36.5 % (37-47); Hemoglobin 11.8 g/dl (12.0-16.0); Imm Gran Abs Auto 0.06 X10*3/uL (0.00-0.03); Imm Gran Pct Auto 1.2 % (0.0-0.4); Lymphocytes Absolute Auto 0.6 X10*3/uL (1.2-4.9); Lymphocytes Percent Auto 11.9 % (20-40); MANUAL DIFF FLAG SCAN; Mean Corpuscular HGB Conc 32.3 g/dl (31.0-35.0); Mean Corpuscular Hemoglobin 25.4 pg (27.0-33.0); Mean Corpuscular Volume 78.7 fL (80-98); Mean Platelet Volume 10.1 fL (9.4-12.3); Monocytes Absolute Auto 0.3 X10*3/uL (0.1-1.2); Monocytes Percent Auto 6.4 % (2-11); Neutrophils Percent Auto 80.5 % (45-73); Platelet Count 156 X10*3/uL (160-400); Red Blood Count 4.64 X10*6/uL (4.20-5.50); Red Cell Distribution Width 15.9 % (11.0-16.0); SCAN SMEAR FLAG 1
[2020-11-10 07:49] LABS: SLIDE REVIEW VERIFIED
[2020-11-10 08:07] LABS: Anion Gap 18 (12-20); Blood Urea Nitrogen 40 mg/dL (9-16); Calcium 7.6 mg/dL (8.4-10.2); Carbon Dioxide 22 mmol/L (22-29); Chloride 91 mmol/L (96-108); Creatinine Clr Calc Pharmacy 62.7; Estimated Glomerular Filt Rate 40; Glucose Random 355 mg/dL (60-115); Potassium 3.9 mmol/L (3.3-5.1); Sodium 127 mmol/L (135-145)
[2020-11-10 08:34] LABS: Glucose, Whole Blood 371 mg/dL (60-115)
--- NOTE | 2020-11-10 08:36 | PC.NURSE ---
ATTEMPT TO CALL REPORT, NO ANSWER
[2020-11-10] MEDS: Insulin Lispro 100 UNIT/ML 3 ML VIAL SUBCUT ×4 (08:44→21:43)
[2020-11-10] MEDS: Omeprazole 20 MG CAPSULE.DR PO (08:44)
--- NOTE | 2020-11-10 08:53 | PC.NURSE ---
REPORT TO EWA DAUGHERTY
[2020-11-10] MEDS: Sertraline HCL 100 MG TABLET 200 MG PO (10:59)
[2020-11-10] MEDS: acetaZOLAMIDE 250 MG TABLET PO ×2 (10:59→21:42)
[2020-11-10] MEDS: dexAMETHasone 6 MG TABLET PO (11:00)
[2020-11-10] MEDS: Isosorbide Mononitrate 60 MG TAB.ER.24H PO (11:00)
[2020-11-10] MEDS: Bumetanide 1 MG TABLET 2 MG PO (11:00)
--- NOTE | 2020-11-10 11:00 | MHC.CM.PN ---
CM spoke with dtr/HCP Luz by phone [phone] r/t +[facility] who reports patient lives alone, uses a walker to amb, has [facility] services and is active with [facility]. referral made via [employer]. Dtr and granddaughter are [employer] EST[employer]. Patient does have a HCP and a copy is on file. Discussed discharge plan, home with resumption of [employer] and [facility]. Patient night need transportation home. IMM addressed with dtr/HCP Wenday on 11/10/2020 at 10:20 am. CM will continue to follow patient for discharge needs.
[2020-11-10] MEDS: Metoprolol Tartrate 25 MG TABLET 75 MG PO (11:01)
[2020-11-10] MEDS: Atorvastatin Calcium 80 MG TABLET PO (11:01)
[2020-11-10] MEDS: Spironolactone 25 MG TABLET 50 MG PO (11:01)
[2020-11-10] MEDS: Potassium Chloride ER 20 MEQ TAB.ER.PRT PO (11:02)
[2020-11-10] MEDS: Apixaban 5 MG TABLET PO ×2 (11:02→21:43)
[2020-11-10] MEDS: amLODIPine Besylate 5 MG TABLET PO (11:03)
[2020-11-10 12:11] LABS: Glucose, Whole Blood 331 mg/dL (60-115)
[2020-11-10] MEDS: Remdesivir 200 MG in 0.9 % Sodium Chloride 210 ML 105 MG IV (15:14)
[2020-11-10] MEDS: 0.9 % Sodium Chloride Flush 3 ML SYRINGE IVFLUSH ×2 (15:14→21:43)
--- NOTE | 2020-11-10 15:15 | HO.PM.IMPN ---
Subjective Subjective Date of Service: 11/10/20 Interval History: Patient seen and examined at bedside patient was reporting weak and short of breath Review of Systems Constitutional : No Weight loss, No Fever, No Chills ENT/Mouth : No sore throat, No Rhinorrhea Eyes: No Eye Pain, No Swelling Cardiovascular : No Chest Pain, no palpitations Respiratory : + Cough, No Sputum, ++ shortness of breath Gastrointestinal : no Nausea, No Vomiting, No Diarrhea, No abdominal Pain, no black stools Genitourinary : No Dysuria, No Urinary Frequency Musculoskeletal : No joint pain, No Myalgias, No Joint Swelling Skin : No Skin Lesions, No rash Neuro : No Weakness, No Numbness, No Dizziness, No Headache Psych : No Anxiety/Panic, No Depression Heme/Lymph: No Bruising, No Lymphadenopathy Endocrine : No Polyuria, No Polydipsia All other systems reviewed and are negative Physical Exam Vital Signs: Vital Signs: Last Vital Signs Temp 97.2 F 11/10/20 11:41 Pulse 73 11/10/20 11:41 Resp 20 11/10/20 12:03 BP 155/76 H 11/10/20 11:41 Pulse Ox 92 11/10/20 11:41 Body Mass Index 53.2 Const: General: in distress mild and ill appearing Nutritional Appearance: obese Orientation/consciousness: patient oriented x3 HENMT: Head: Yes normal to inspection Ears: hearing grossly normal bilaterally General nose exam: Normal external nose present Eyes: General: appearance normal, both eyes and all related structures Conjunctivae: conjunctivae normal Sclerae: sclerae normal Pupils: Equal, round and reactive pupils present Neck: Neck: Yes normal visual inspection Thyroid: Thyroid normal Carotids: normal carotid upstroke Chest: Chest palpation & inspection: normal palpation of entire chest wall Resp: Effort & Inspection: labored and tachypneic Auscultation: crackles (Occasional bilateral bases), no rales, rhonchi, wheezes and diminished lung sounds Cardio: Jugular venous distension: no JVD Palpation: normal PMI Rate: regular rate Rhythm: regular rhythm Heart sounds: S1 normal heart sound present, S2 normal heart sound present and Murmur heart sound present (Right Parasternal pansystolic) Peripheral pulses: Peripheral pulses 2+ throughout GI: Inspection: Yes normal to inspection Palpation (GI): Soft to palpation and nontender Auscultation: normal bowel sounds : General: Yes no CVA tenderness Back/Spine/Pelvis: Back: no CVA tenderness Thoracic/Lumbar Spine: thoracic and lumbar spine normal to inspection Skin: General skin exam: no rashes or lesions noted Neuro: General: patient oriented x3 and no focal motor deficits Cranial nerves: Yes Equal, round and reactive pupils present Extrem: General: Yes no calf tenderness and Yes pedal edema (2+) Objective Data Current Medications Generic Name Dose Route Start Last Admin Trade Name Freq PRN Reason Stop Dose Admin Acetaminophen 650 mg 11/09/20 23:12 Acetaminophen 325 Mg Tablet PO Q6H PRN Pain, Mild (Pain Scale 1-3) Acetazolamide 250 mg 11/10/20 09:00 11/10/20 10:59 Acetazolamide 250 Mg Tablet PO 250 mg BID ROCKY Administration Albuterol Sulfate 2.5 mg 11/10/20 01:33 Albuterol Sulfate (0.083%) 2.5 Mg/3 Ml Vial.Neb INHALE Q4H PRN Shortness Of Breath Albuterol Sulfate 4 puff 11/10/20 01:33 Albuterol Sulfate 90 Mcg 8 Gm Inhaler INHALE Q3H PRN Shortness Of Breath Amlodipine Besylate 5 mg 11/10/20 09:00 11/10/20 11:03 Amlodipine Besylate 5 Mg Tablet PO 5 mg DAILY ROCKY Administration Protocol Apixaban 5 mg 11/10/20 09:00 11/10/20 11:02 Apixaban 5 Mg Tablet PO 5 mg BID ROCKY Administration Atorvastatin Calcium 80 mg 11/10/20 09:00 11/10/20 11:01 Atorvastatin Calcium 80 Mg Tablet PO 80 mg DAILY ROCKY Administration Bumetanide 2 mg 11/10/20 09:00 11/10/20 11:00 Bumetanide 1 Mg Tablet PO 2 mg DAILY ROCKY Administration Protocol Dexamethasone 6 mg 11/10/20 09:00 11/10/20 11:00 Dexamethasone 6 Mg Tablet PO 6 mg DAILY ROCKY Administration Doxycycline Hyclate 100 mg 11/10/20 09:00 11/10/20 11:02 Doxycycline Hyclate 100 Mg Tablet PO 100 mg Q12H ROCKY Administration Ceftriaxone Sodium 1 gm/ 50 mls @ 100 mls/hr 11/10/20 21:00 Sodium Chloride IV Q24H ROCKY Remdesivir 200 mg/ Sodium 210 mls @ 105 mls/hr 11/10/20 13:45 Chloride IV 11/10/20 15:44 ONCE ONE Remdesivir 100 mg/ Sodium 230 mls @ 115 mls/hr 11/11/20 15:00 Chloride IV 11/14/20 16:59 Q24H [facility] Insulin Human Lispro 0 unit 11/10/20 07:30 11/10/20 13:47 Insulin Lispro 100 Unit/Ml 3 Ml Vial SUBCUT 8 unit QIDACHS [facility] Administration Protocol Isosorbide Mononitrate 60 mg 11/10/20 09:00 11/10/20 11:00 Isosorbide Mononitrate 60 Mg Tab.Er.24h PO 60 mg DAILY [facility] Administration Protocol Melatonin 3 mg 11/10/20 01:33 11/10/20 02:01 Melatonin 3 Mg Tablet PO 3 mg BEDTIME PRN Administration Sleep Metolazone 2.5 mg 11/10/20 01:33 Metolazone 2.5 Mg Tablet PO ONCE PRN Shortness Of Breath Metoprolol Tartrate 75 mg 11/10/20 09:00 11/10/20 11:01 Metoprolol Tartrate 25 Mg Tablet PO 75 mg DAILY [facility] Administration Protocol Olanzapine 15 mg 11/10/20 01:35 11/10/20 02:01 Olanzapine 7.5 Mg Tablet PO 15 mg BEDTIME ROCKY Administration Omeprazole 20 mg 11/10/20 06:30 11/10/20 08:44 Omeprazole 20 Mg Capsule.Dr PO 20 mg DAILY@0630 ROCKY Administration Potassium Chloride 20 meq 11/10/20 09:00 11/10/20 11:02 Potassium Chloride Er 20 Meq Tab.Er.Prt PO 20 meq DAILY ROCKY Administration Sertraline HCl 200 mg 11/10/20 09:00 11/10/20 10:59 Sertraline Hcl 100 Mg Tablet PO 200 mg DAILY ROCKY Administration Sodium Chloride 3 ml 11/10/20 00:00 11/10/20 11:47 0.9 % Sodium Chloride Flush 3 Ml Syringe IVFLUSH Not Given QSHIFT [facility] Spironolactone 50 mg 11/10/20 09:00 11/10/20 11:01 Spironolactone 25 Mg Tablet PO 50 mg DAILY [facility] Administration Protocol Trazodone HCl 100 mg 11/10/20 01:35 11/10/20 02:01 Trazodone Hcl 100 Mg Tablet PO 100 mg BEDTIME PRN Administration Sleep Labs CBC & Chem 7: 11/10/20 06:23 11/10/20 06:23 Assessment and Plan (1) Pneumonia due to COVID-19 virus: Status: Acute Assessment and Plan: 65-year-old female with a past medical history of hypertension, hyperlipidemia, diabetes, coronary artery disease, CHF, AFib on Eliquis, arthritis presented to the hospital with a chief complaint of shortness of breath/dry cough noted to have COVID-19 pneumonia. Patient also noted to be in mild respiratory distress-on CPAP briefly in the ER subsequently transition to high-flow oxygen. Admitted to the hospital for further management. Acute hypoxic respiratory failure secondary to COVID-19 pneumonia. initially placed on CPAP transition to high-flow continue oxygen supplemental Continue dexamethasone, continue ceftriaxone, azithromycin. Id consulted started on remdesivir monitor LFTs continue Isolation precautions AFib: continue Lopressor and Eliquis CHF: Patient currently appears euvolemic. Continue home medications. Hypertension/hyperlipidemia: Continue Imdur amlodipine and Lopressor Diabetes: continue Insulin sliding scale monitor blood glucose Obesity: Patient likely had MOISÉS continue CPAP at night outpatient sleep studies. DVT prophylaxis: Eliquis Code status: Full code
[2020-11-10 16:54] LABS: Glucose, Whole Blood 323 mg/dL (60-115)
[2020-11-10 20:47] LABS: Glucose, Whole Blood 312 mg/dL (60-115)
--- NOTE | 2020-11-10 21:12 | P.CNID_ITS ---
History of Present Illness Data of Consult Service Date: 11/10/20 Requesting physician: Myles Abernathy Primary Care Provider: Unknown Physician HPI Reason for consult: COVID She presents with shortness of breath for two days She has cough She has COVID and is on NRB 50% Review of Systems Review of Systems: Yes all other systems are reviewed and are negative [facility] Past Medical History Medical History CAD (coronary artery disease) CHF (congestive heart failure) Chronic heart failure with preserved ejection fraction (HFpEF) Chronic pancreatitis COPD (chronic obstructive pulmonary disease) COPD (chronic obstructive pulmonary disease) Degenerative arthritis of knee, bilateral Diverticulosis Dysuria Essential hypertension Hyperlipidemia LDL goal <70 Hypertensive heart disease Memory loss Morbid obesity due to excess calories Pulmonary embolism Respiratory failure with hypoxia and hypercapnia Right heart failure (secondary to left heart failure) SVT (supraventricular tachycardia) 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 Maternal Grandmother Diabetes Maternal Uncle Diabetes Maternal Aunt Diabetes Surgical History Surgical History Hx of cardiac catheterization Social History Social History Household Members: Family Housing: Apartment Alcohol intake: never Smoking Status: Never smoker Second Hand Smoke Exposure: No Advance Directives Date on File: 11/30/19 service: No Current occupational status: disabled Meds Allergies Allergy/AdvReac Type Severity Reaction Status Date / Time nitrofurantoin Allergy Intermediate SWELLING Verified 10/17/20 11:23 [From MACROBID] azithromycin [Azithromycin] Allergy Mild SWELLING Verified 10/17/20 11:23 Zithromax Allergy Unknown Swelling Uncoded 10/17/20 11:23 Active Medications: Current Medications Generic Name Dose Route Start Last Admin Trade Name Freq PRN Reason Stop Dose Admin Acetaminophen 650 mg 11/09/20 23:12 Acetaminophen 325 Mg Tablet PO Q6H PRN Pain, Mild (Pain Scale 1-3) Acetazolamide 250 mg 11/10/20 09:00 11/10/20 10:59 Acetazolamide 250 Mg Tablet PO 250 mg BID ROCKY Administration Albuterol Sulfate 2.5 mg 11/10/20 01:33 Albuterol Sulfate (0.083%) 2.5 Mg/3 Ml Vial.Neb INHALE Q4H PRN Shortness Of Breath Albuterol Sulfate 4 puff 11/10/20 01:33 Albuterol Sulfate 90 Mcg 8 Gm Inhaler INHALE Q3H PRN Shortness Of Breath Amlodipine Besylate 5 mg 11/10/20 09:00 11/10/20 11:03 Amlodipine Besylate 5 Mg Tablet PO 5 mg DAILY ROCKY Administration Protocol Apixaban 5 mg 11/10/20 09:00 11/10/20 11:02 Apixaban 5 Mg Tablet PO 5 mg BID ROCKY Administration Atorvastatin Calcium 80 mg 11/10/20 09:00 11/10/20 11:01 Atorvastatin Calcium 80 Mg Tablet PO 80 mg DAILY ROCKY Administration Bumetanide 2 mg 11/10/20 09:00 11/10/20 11:00 Bumetanide 1 Mg Tablet PO 2 mg DAILY ROCKY Administration Protocol Dexamethasone 6 mg 11/10/20 09:00 11/10/20 11:00 Dexamethasone 6 Mg Tablet PO 6 mg DAILY ROCKY Administration Doxycycline Hyclate 100 mg 11/10/20 09:00 11/10/20 11:02 Doxycycline Hyclate 100 Mg Tablet PO 100 mg Q12H ROCKY Administration Ceftriaxone Sodium 1 gm/ 50 mls @ 100 mls/hr 11/10/20 21:00 Sodium Chloride IV Q24H ROCKY Remdesivir 100 mg/ Sodium 230 mls @ 115 mls/hr 11/11/20 15:00 Chloride IV 11/14/20 16:59 Q24H ROCKY Insulin Human Lispro 0 unit 11/10/20 07:30 11/10/20 17:13 Insulin Lispro 100 Unit/Ml 3 Ml Vial SUBCUT 8 unit QIDACHS [facility] Administration Protocol Isosorbide Mononitrate 60 mg 11/10/20 09:00 11/10/20 11:00 Isosorbide Mononitrate 60 Mg Tab.Er.24h PO 60 mg DAILY ROCKY Administration Protocol Melatonin 3 mg 11/10/20 01:33 11/10/20 02:01 Melatonin 3 Mg Tablet PO 3 mg BEDTIME PRN Administration Sleep Metolazone 2.5 mg 11/10/20 01:33 Metolazone 2.5 Mg Tablet PO ONCE PRN Shortness Of Breath Metoprolol Tartrate 75 mg 11/10/20 09:00 11/10/20 11:01 Metoprolol Tartrate 25 Mg Tablet PO 75 mg DAILY ROCKY Administration Protocol Olanzapine 15 mg 11/10/20 01:35 11/10/20 02:01 Olanzapine 7.5 Mg Tablet PO 15 mg BEDTIME ROCKY Administration Omeprazole 20 mg 11/10/20 06:30 11/10/20 08:44 Omeprazole 20 Mg Capsule.Dr PO 20 mg DAILY@0630 ROCKY Administration Potassium Chloride 20 meq 11/10/20 09:00 11/10/20 11:02 Potassium Chloride Er 20 Meq Tab.Er.Prt PO 20 meq DAILY ROCKY Administration Sertraline HCl 200 mg 11/10/20 09:00 11/10/20 10:59 Sertraline Hcl 100 Mg Tablet PO 200 mg DAILY ROCKY Administration Sodium Chloride 3 ml 11/10/20 00:00 11/10/20 15:14 0.9 % Sodium Chloride Flush 3 Ml Syringe IVFLUSH 3 ml QSHIFT [facility] Administration Spironolactone 50 mg 11/10/20 09:00 11/10/20 11:01 Spironolactone 25 Mg Tablet PO 50 mg DAILY ROCKY Administration Protocol Trazodone HCl 100 mg 11/10/20 01:35 11/10/20 02:01 Trazodone Hcl 100 Mg Tablet PO 100 mg BEDTIME PRN Administration Sleep Home Medications Medication Instructions Recorded Confirmed Last Taken Type Eliquis 5 mg PO BID 07/22/20 11/10/20 Unknown History Flovent HFA 1 puff INHALATION BID 07/22/20 11/10/20 Unknown History Incruse Ellipta 1 inh INHALATION DAILY 07/22/20 11/10/20 Unknown History acetaminophen 650 mg PO Q8H PRN 07/22/20 11/10/20 Unknown History albuterol sulfate 2.5 mg INHALATION Q4H PRN 07/22/20 11/10/20 Unknown History amlodipine [Norvasc] 5 mg PO DAILY 07/22/20 11/10/20 Unknown History atorvastatin 80 mg PO DAILY 07/22/20 11/10/20 Unknown History melatonin 3 mg PO BEDTIME PRN 07/22/20 11/10/20 Unknown History metoprolol tartrate 75 mg PO BID 07/22/20 11/10/20 Unknown History olanzapine [Zyprexa] 15 mg PO BEDTIME 07/22/20 11/10/20 Unknown History pantoprazole [Protonix] 20 mg PO DAILY 07/22/20 11/10/20 Unknown History potassium chloride [Klor-Con M20] 20 meq PO DAILY 07/22/20 11/10/20 Unknown History sertraline 200 mg PO DAILY 07/22/20 11/10/20 Unknown History spironolactone 50 mg PO DAILY 07/22/20 11/10/20 Unknown History acetazolamide 250 mg tablet 250 mg PO BID tab 10/17/20 11/10/20 Unknown History bumetanide 2 mg tablet 2 mg PO DAILY tab 10/17/20 11/10/20 Unknown History Physical Exam Vital Signs: Vital Signs: Last Vital Signs Temp 96.8 F 11/10/20 19:41 Pulse 71 11/10/20 19:41 Resp 20 11/10/20 20:37 BP 125/60 11/10/20 19:41 Pulse Ox 93 11/10/20 19:41 Body Mass Index 53.2 Const: General: cooperative Orientation/consciousness: patient oriented x3 HENMT: Head: Yes normal to inspection Mouth: Normal oral and palatal mucosa present Eyes: General: appearance normal, both eyes and all related structures Resp: Effort & Inspection: normal respiratory effort Cardio: Rate: regular rate Rhythm: regular rhythm GI: Palpation (GI): Soft to palpation and nontender Skin: General skin exam: no rashes or lesions noted Neuro: General: patient oriented x3 Results Labs CBC & Chem 7: 11/10/20 06:23 11/14/20 05:45 Labs: Short CBC 11/10/20 Range/Units 06:23 WBC 5.0 (4.8-10.8) X10*3/uL Hgb 11.8 L (12.0-16.0) g/dl Hct 36.5 L (37-47) % Plt Count 156 L (160-400) X10*3/uL BMP 11/09/20 11/10/20 20:54 06:23 Sodium 128 L 127 L Potassium 3.5 3.9 Chloride 89 L 91 L Carbon Dioxide 24 22 BUN 36 H 40 H Creatinine 1.35 1.31 Calcium 7.7 L D 7.6 L Liver Function 11/09/20 Range/Units 20:54 Total Bilirubin 1.0 (0.0-1.0) mg/dL Direct Bilirubin 0.6 H (0.0-0.5) mg/dL AST 64 H (5-31) U/L ALT 31 (0-31) U/L Alkaline Phosphatase 122 H (39-117) U/L Albumin 3.8 (3.5-5.0) g/dL Microbiology Microbiology Results: Microbiology 11/09/20 19:57 Blood - Venous Blood Culture - Preliminary Assessment and Plan (1) Pneumonia due to 2019-nCoV: Problem details: She has COVID She has oxygen dependency and rather unremarkable liver and kidney tests Status: Acute Would continue oxygen support Remdesivir Dexamethasone (2) Hypoxia: Status: Acute
[2020-11-10] MEDS: Acetaminophen 325 MG TABLET 650 MG PO (21:42)
[2020-11-10] MEDS: cefTRIAXone sodium 1 GM in 0.9 % Sodium Chloride 50 ML IV (21:43)
[2020-11-10] MEDS: vancomycin HCL 1,000 MG in 0.9 % Sodium Chloride 250 ML 270 MG IV (22:56)
[2020-11-11] VITALS (12 sets, daily range): BP systolic 121–182; BP diastolic 55–71; PULSE 71–93; RESP 18–26; TEMP 35.7–36.9; O2SAT 87–96
[2020-11-11] MEDS: Omeprazole 20 MG CAPSULE.DR PO (05:08)
[2020-11-11 07:12] LABS: Alanine Aminotransferase 26 U/L (0-31); Albumin Level 3.5 g/dL (3.5-5.0); Alkaline Phosphatase 110 U/L (39-117); Anion Gap 17 (12-20); Aspartate Amino Transferase 55 U/L (5-31); Bilirubin Direct 0.4 mg/dL (0.0-0.5); Bilirubin Total 0.6 mg/dL (0.0-1.0); Blood Urea Nitrogen 50 mg/dL (9-16); Calcium 7.9 mg/dL (8.4-10.2); Carbon Dioxide 25 mmol/L (22-29); Chloride 93 mmol/L (96-108); Creatinine Clr Calc Pharmacy 61.4; Estimated Glomerular Filt Rate 39; Glucose Random 343 mg/dL (60-115); Potassium 4.1 mmol/L (3.3-5.1); Sodium 131 mmol/L (135-145); Total Protein 6.6 g/dL (6.5-8.0)
[2020-11-11 07:44] LABS: Glucose, Whole Blood 304 mg/dL (60-115)
[2020-11-11] MEDS: Isosorbide Mononitrate 60 MG TAB.ER.24H PO (08:12)
[2020-11-11] MEDS: dexAMETHasone 6 MG TABLET PO (08:12)
[2020-11-11] MEDS: Metoprolol Tartrate 25 MG TABLET 75 MG PO (08:12)
[2020-11-11] MEDS: 0.9 % Sodium Chloride Flush 3 ML SYRINGE IVFLUSH ×3 (08:12→21:33)
[2020-11-11] MEDS: Insulin Lispro 100 UNIT/ML 3 ML VIAL SUBCUT ×4 (08:12→21:32)
[2020-11-11] MEDS: amLODIPine Besylate 5 MG TABLET PO (08:13)
[2020-11-11] MEDS: Spironolactone 25 MG TABLET 50 MG PO (08:13)
[2020-11-11] MEDS: Sertraline HCL 100 MG TABLET 200 MG PO (08:13)
[2020-11-11] MEDS: Atorvastatin Calcium 80 MG TABLET PO (08:13)
[2020-11-11] MEDS: Potassium Chloride ER 20 MEQ TAB.ER.PRT PO (08:13)
[2020-11-11] MEDS: Apixaban 5 MG TABLET PO ×2 (08:13→21:31)
[2020-11-11] MEDS: acetaZOLAMIDE 250 MG TABLET PO ×2 (08:13→21:31)
[2020-11-11] MEDS: Bumetanide 1 MG TABLET 2 MG PO (08:13)
[2020-11-11 11:22] LABS: Glucose, Whole Blood 326 mg/dL (60-115)
--- NOTE | 2020-11-11 12:20 | MHC.CM.PN ---
CM NOTE. Female 65 DX Covid+: A return call with update was made to Luz, the Pts DTR. Not ready for Discharge. Pt is still requiring supplemental oxygen 55%.
[2020-11-11] MEDS: oxyCODONE HCl Immed Release 5 MG TABLET PO (13:28)
[2020-11-11] MEDS: Remdesivir 100 MG in 0.9 % Sodium Chloride 230 ML 115 MG IV (14:56)
--- NOTE | 2020-11-11 15:05 | P.PNIM_ITS ---
Subjective Subjective Date of Service: 11/11/20 Interval History: Patient seen and examined at bedside patient was reporting weak and short of breath Review of Systems Constitutional : No Weight loss, No Fever, No Chills ENT/Mouth : No sore throat, No Rhinorrhea Eyes: No Eye Pain, No Swelling Cardiovascular : No Chest Pain, no palpitations Respiratory : + Cough, No Sputum, ++ shortness of breath Gastrointestinal : no Nausea, No Vomiting, No Diarrhea, No abdominal Pain, no black stools Genitourinary : No Dysuria, No Urinary Frequency Musculoskeletal : No joint pain, No Myalgias, No Joint Swelling Skin : No Skin Lesions, No rash Neuro : No Weakness, No Numbness, No Dizziness, No Headache Psych : No Anxiety/Panic, No Depression Heme/Lymph: No Bruising, No Lymphadenopathy Endocrine : No Polyuria, No Polydipsia All other systems reviewed and are negative Physical Exam Vital Signs: Vital Signs: Last Vital Signs Temp 98.4 F 11/11/20 11:50 Pulse 73 11/11/20 11:50 Resp 20 11/11/20 11:50 BP 124/55 L 11/11/20 11:50 Pulse Ox 91 L 11/11/20 11:50 Body Mass Index 53.2 Const: General: in distress mild and ill appearing Nutritional Appearance: obese Orientation/consciousness: patient oriented x3 HENMT: Head: Yes normal to inspection Ears: hearing grossly normal bilaterally General nose exam: Normal external nose present Eyes: General: appearance normal, both eyes and all related structures Conjunctivae: conjunctivae normal Sclerae: sclerae normal Pupils: Equal, round and reactive pupils present Neck: Neck: Yes normal visual inspection Thyroid: Thyroid normal Carotids: normal carotid upstroke Chest: Chest palpation & inspection: normal palpation of entire chest wall Resp: Effort & Inspection: labored and tachypneic Auscultation: crackles (Occasional bilateral bases), no rales, rhonchi, wheezes and diminished lung sounds Cardio: Jugular venous distension: no JVD Palpation: normal PMI Rate: regular rate Rhythm: regular rhythm Heart sounds: S1 normal heart sound present, S2 normal heart sound present and Murmur heart sound present (Right Parasternal pansystolic) Peripheral pulses: Peripheral pulses 2+ throughout GI: Inspection: Yes normal to inspection Palpation (GI): Soft to palpation and nontender Auscultation: normal bowel sounds : General: Yes no CVA tenderness Back/Spine/Pelvis: Back: no CVA tenderness Thoracic/Lumbar Spine: thoracic and lumbar spine normal to inspection Skin: General skin exam: no rashes or lesions noted Neuro: General: patient oriented x3 and no focal motor deficits Cranial nerves: Yes Equal, round and reactive pupils present Extrem: General: Yes no calf tenderness and Yes pedal edema (2+) Objective Data Current Medications Generic Name Dose Route Start Last Admin Trade Name Ayushq PRN Reason Stop Dose Admin Acetaminophen 650 mg 11/09/20 23:12 11/10/20 21:42 Acetaminophen 325 Mg Tablet PO 650 mg Q6H PRN Administration Pain, Mild (Pain Scale 1-3) Acetazolamide 250 mg 11/10/20 09:00 11/11/20 08:13 Acetazolamide 250 Mg Tablet PO 250 mg BID ROCKY Administration Albuterol Sulfate 2.5 mg 11/10/20 01:33 Albuterol Sulfate (0.083%) 2.5 Mg/3 Ml Vial.Neb INHALE Q4H PRN Shortness Of Breath Albuterol Sulfate 4 puff 11/10/20 01:33 Albuterol Sulfate 90 Mcg 8 Gm Inhaler INHALE Q3H PRN Shortness Of Breath Amlodipine Besylate 5 mg 11/10/20 09:00 11/11/20 08:13 Amlodipine Besylate 5 Mg Tablet PO 5 mg DAILY ROCKY Administration Protocol Apixaban 5 mg 11/10/20 09:00 11/11/20 08:13 Apixaban 5 Mg Tablet PO 5 mg BID ROCKY Administration Atorvastatin Calcium 80 mg 11/10/20 09:00 11/11/20 08:13 Atorvastatin Calcium 80 Mg Tablet PO 80 mg DAILY ROCKY Administration Bumetanide 2 mg 11/10/20 09:00 11/11/20 08:13 Bumetanide 1 Mg Tablet PO 2 mg DAILY ROCKY Administration Protocol Dexamethasone 6 mg 11/10/20 09:00 11/11/20 08:12 Dexamethasone 6 Mg Tablet PO 6 mg DAILY ROCKY Administration Doxycycline Hyclate 100 mg 11/10/20 09:00 11/11/20 08:13 Doxycycline Hyclate 100 Mg Tablet PO 100 mg Q12H ROCKY Administration Ceftriaxone Sodium 1 gm/ 50 mls @ 100 mls/hr 11/10/20 21:00 11/10/20 22:34 Sodium Chloride IV Infused Q24H ROCKY Infusion Remdesivir 100 mg/ Sodium 230 mls @ 115 mls/hr 11/11/20 15:00 11/11/20 14:56 Chloride IV 11/14/20 16:59 115 mls/hr Q24H ROCKY Administration Insulin Human Lispro 0 unit 11/10/20 07:30 11/11/20 11:46 Insulin Lispro 100 Unit/Ml 3 Ml Vial SUBCUT 8 unit QIDACHS [facility] Administration Protocol Isosorbide Mononitrate 60 mg 11/10/20 09:00 11/11/20 08:12 Isosorbide Mononitrate 60 Mg Tab.Er.24h PO 60 mg DAILY ROCKY Administration Protocol Melatonin 3 mg 11/10/20 01:33 11/10/20 02:01 Melatonin 3 Mg Tablet PO 3 mg BEDTIME PRN Administration Sleep Metolazone 2.5 mg 11/10/20 01:33 Metolazone 2.5 Mg Tablet PO ONCE PRN Shortness Of Breath Metoprolol Tartrate 75 mg 11/10/20 09:00 11/11/20 08:12 Metoprolol Tartrate 25 Mg Tablet PO 75 mg DAILY ROCKY Administration Protocol Olanzapine 15 mg 11/10/20 01:35 11/10/20 21:42 Olanzapine 7.5 Mg Tablet PO 15 mg BEDTIME ROCKY Administration Omeprazole 20 mg 11/10/20 06:30 11/11/20 05:08 Omeprazole 20 Mg Capsule.Dr PO 20 mg DAILY@0630 [facility] Administration Oxycodone HCl 5 mg 11/11/20 12:51 11/11/20 13:28 Oxycodone Hcl Immed Release 5 Mg Tablet PO 5 mg Q6H PRN Administration Pain, Moderate (Pain Scale 4-6 Pharmacy Consult 1 each 11/10/20 21:14 Consult Rx Vancomycin Dosing MISCELLANE DAILY PRN Consult order Potassium Chloride 20 meq 11/10/20 09:00 11/11/20 08:13 Potassium Chloride Er 20 Meq Tab.Er.Prt PO 20 meq DAILY ROCKY Administration Sertraline HCl 200 mg 11/10/20 09:00 11/11/20 08:13 Sertraline Hcl 100 Mg Tablet PO 200 mg DAILY ROCKY Administration Sodium Chloride 3 ml 11/10/20 00:00 11/11/20 14:57 0.9 % Sodium Chloride Flush 3 Ml Syringe IVFLUSH 3 ml QSHIFT [facility]Y Administration Spironolactone 50 mg 11/10/20 09:00 11/11/20 08:13 Spironolactone 25 Mg Tablet PO 50 mg DAILY ROCKY Administration Protocol Trazodone HCl 100 mg 11/10/20 01:35 11/10/20 23:03 Trazodone Hcl 100 Mg Tablet PO 100 mg BEDTIME PRN Administration Sleep Labs CBC & Chem 7: 11/10/20 06:23 11/11/20 05:43 Microbiology Microbiology Results: Microbiology 11/09/20 19:57 Blood - Venous Blood Culture - Preliminary 11/09/20 20:54 Blood - Venous Blood Culture - Preliminary No growth after 24 hours. Assessment and Plan (1) Pneumonia due to COVID-19 virus: Status: Acute Assessment and Plan: 65-year-old female with a past medical history of hypertension, hyperlipidemia, diabetes, coronary artery disease, CHF, AFib on Eliquis, arthritis presented to the hospital with a chief complaint of shortness of breath/dry cough noted to have COVID-19 pneumonia. Patient also noted to be in mild respiratory distress- on CPAP briefly in the ER subsequently transition to high-flow oxygen. Admitted to the hospital for further management. Acute hypoxic respiratory failure secondary to COVID-19 pneumonia. Continue high-flow continue oxygen supplemental Continue dexamethasone, continue ceftriaxone, azithromycin. Id consulted started on remdesivir Continue remdesivir monitor LFTs monitor LFTs continue Isolation precautions AFib: continue Lopressor and Eliquis CHF: Patient currently appears euvolemic. Continue home medications. Hypertension/hyperlipidemia: Continue Imdur amlodipine and Lopressor Diabetes: continue Insulin sliding scale monitor blood glucose Obesity: Patient likely had MOISÉS continue CPAP at night outpatient sleep studies. DVT prophylaxis: Eliquis Code status: Full code
[2020-11-11 16:36] LABS: Glucose, Whole Blood 342 mg/dL (60-115)
[2020-11-11 20:42] LABS: Glucose, Whole Blood 362 mg/dL (60-115)
[2020-11-11] MEDS: cefTRIAXone sodium 1 GM in 0.9 % Sodium Chloride 50 ML IV (21:31)
[2020-11-11] MEDS: OLANZapine 7.5 MG TABLET 15 MG PO (21:31)
[2020-11-11] MEDS: traZODone HCL 100 MG TABLET PO (23:36)
[2020-11-11] MEDS: Melatonin 3 MG TABLET PO (23:36)
[2020-11-12] VITALS (12 sets, daily range): BP systolic 104–142; BP diastolic 52–70; PULSE 76–108; RESP 18–26; TEMP 35.9–36.7; O2SAT 88–95
[2020-11-12] MEDS: Omeprazole 20 MG CAPSULE.DR PO (05:52)
[2020-11-12 06:46] LABS: Alanine Aminotransferase 31 U/L (0-31); Albumin Level 3.8 g/dL (3.5-5.0); Alkaline Phosphatase 139 U/L (39-117); Anion Gap 15 (12-20); Aspartate Amino Transferase 55 U/L (5-31); Bilirubin Direct 0.4 mg/dL (0.0-0.5); Bilirubin Total 0.6 mg/dL (0.0-1.0); Blood Urea Nitrogen 47 mg/dL (9-16); Calcium 8.7 mg/dL (8.4-10.2); Carbon Dioxide 28 mmol/L (22-29); Chloride 94 mmol/L (96-108); Creatinine Clr Calc Pharmacy 66.3; Estimated Glomerular Filt Rate 43; Glucose Random 393 mg/dL (60-115); Potassium 4.3 mmol/L (3.3-5.1); Sodium 133 mmol/L (135-145); Total Protein 7.2 g/dL (6.5-8.0)
[2020-11-12 07:37] LABS: Glucose, Whole Blood 321 mg/dL (60-115)
[2020-11-12] MEDS: 0.9 % Sodium Chloride Flush 3 ML SYRINGE IVFLUSH ×2 (07:47→17:09)
[2020-11-12] MEDS: Insulin Lispro 100 UNIT/ML 3 ML VIAL SUBCUT ×4 (07:47→21:36)
[2020-11-12] MEDS: Insulin Glargine,Hum.rec.anlog 100 UNIT/ML 10 ML VIAL 20 UNIT SUBCUT (09:38)
[2020-11-12] MEDS: Atorvastatin Calcium 80 MG TABLET PO (09:39)
[2020-11-12] MEDS: Potassium Chloride ER 20 MEQ TAB.ER.PRT PO (09:39)
[2020-11-12] MEDS: Bumetanide 1 MG TABLET 2 MG PO (09:39)
[2020-11-12] MEDS: Metoprolol Tartrate 25 MG TABLET 75 MG PO (09:40)
[2020-11-12] MEDS: Spironolactone 25 MG TABLET 50 MG PO (09:41)
[2020-11-12] MEDS: dexAMETHasone 6 MG TABLET PO (09:41)
[2020-11-12] MEDS: amLODIPine Besylate 5 MG TABLET PO (09:41)
[2020-11-12] MEDS: acetaZOLAMIDE 250 MG TABLET PO ×2 (09:41→21:37)
[2020-11-12] MEDS: Isosorbide Mononitrate 60 MG TAB.ER.24H PO (09:41)
[2020-11-12] MEDS: Sertraline HCL 100 MG TABLET 200 MG PO (09:41)
[2020-11-12] MEDS: Apixaban 5 MG TABLET PO ×2 (09:41→21:37)
[2020-11-12 09:58] LABS: Vancomycin Trough 4.4 mcg/mL (10.0-20.0)
--- NOTE | 2020-11-12 10:53 | MHC.CM.PN ---
Patient is requiring O2 at 50 liters high flow with FIO@ at 92% NRB mask for +COVID. Also on IV Ceftriaxone and IV Remdesivir day 2/4. Discharge plan is home with resumption of [employer] andservices from [facility]. Patient might need transport home. CM will continue to follow patient for discharge needs.
[2020-11-12 11:15] LABS: Glucose, Whole Blood 347 mg/dL (60-115)
[2020-11-12] MEDS: Remdesivir 100 MG in 0.9 % Sodium Chloride 230 ML 115 MG IV (13:53)
--- NOTE | 2020-11-12 16:16 | P.PNIM_ITS ---
Subjective Subjective Date of Service: 11/12/20 Interval History: Patient seen and examined at bedside patient was reporting feeling weak and short of breath Review of Systems Constitutional : No Weight loss, No Fever, No Chills ENT/Mouth : No sore throat, No Rhinorrhea Eyes: No Eye Pain, No Swelling Cardiovascular : No Chest Pain, no palpitations Respiratory : + Cough, No Sputum, ++ shortness of breath Gastrointestinal : no Nausea, No Vomiting, No Diarrhea, No abdominal Pain, no black stools Genitourinary : No Dysuria, No Urinary Frequency Musculoskeletal : No joint pain, No Myalgias, No Joint Swelling Skin : No Skin Lesions, No rash Neuro : No Weakness, No Numbness, No Dizziness, No Headache Psych : No Anxiety/Panic, No Depression Heme/Lymph: No Bruising, No Lymphadenopathy Endocrine : No Polyuria, No Polydipsia All other systems reviewed and are negative Physical Exam Vital Signs: Vital Signs: Last Vital Signs Temp 97.0 F 11/12/20 15:46 Pulse 82 11/12/20 15:46 Resp 18 11/12/20 15:46 BP 139/65 11/12/20 15:46 Pulse Ox 93 11/12/20 15:46 Body Mass Index 53.2 Const: General: in distress mild and ill appearing Nutritional Appearance: obese Orientation/consciousness: patient oriented x3 HENMT: Head: Yes normal to inspection Ears: hearing grossly normal bilaterally General nose exam: Normal external nose present Eyes: General: appearance normal, both eyes and all related structures Conjunctivae: conjunctivae normal Sclerae: sclerae normal Pupils: Equal, round and reactive pupils present Neck: Neck: Yes normal visual inspection Thyroid: Thyroid normal Carot ids: normal carotid upstroke Chest: Chest palpation & inspection: normal palpation of entire chest wall Resp: Effort & Inspection: labored and tachypneic Auscultation: crackles (Occasional bilateral bases), no rales, rhonchi, wheezes and diminished lung sounds Cardio: Jugular venous distension: no JVD Palpation: normal PMI Rate: regular rate Rhythm: regular rhythm Heart sounds: S1 normal heart sound present, S2 normal heart sound present and Murmur heart sound present (Right Parasternal pansystolic) Peripheral pulses: Peripheral pulses 2+ throughout GI: Inspection: Yes normal to inspection Palpation (GI): Soft to palpation and nontender Auscultation: normal bowel sounds : General: Yes no CVA tenderness Back/Spine/Pelvis: Back: no CVA tenderness Thoracic/Lumbar Spine: thoracic and lumbar spine normal to inspection Skin: General skin exam: no rashes or lesions noted Neuro: General: patient oriented x3 and no focal motor deficits Cranial nerves: Yes Equal, round and reactive pupils present Extrem: General: Yes no calf tenderness and Yes pedal edema (2+) Objective Data Current Medications Generic Name Dose Route Start Last Admin Trade Name Ayushq PRN Reason Stop Dose Admin Acetaminophen 650 mg 11/09/20 23:12 11/10/20 21:42 Acetaminophen 325 Mg Tablet PO 650 mg Q6H PRN Administration Pain, Mild (Pain Scale 1-3) Acetazolamide 250 mg 11/10/20 09:00 11/12/20 09:41 Acetazolamide 250 Mg Tablet PO 250 mg BID ROCKY Administration Albuterol Sulfate 2.5 mg 11/10/20 01:33 Albuterol Sulfate (0.083%) 2.5 Mg/3 Ml Vial.Neb INHALE Q4H PRN Shortness Of Breath Albuterol Sulfate 4 puff 11/10/20 01:33 Albuterol Sulfate 90 Mcg 8 Gm Inhaler INHALE Q3H PRN Shortness Of Breath Amlodipine Besylate 5 mg 11/10/20 09:00 11/12/20 09:41 Amlodipine Besylate 5 Mg Tablet PO 5 mg DAILY ROCKY Administration Protocol Apixaban 5 mg 11/10/20 09:00 11/12/20 09:41 Apixaban 5 Mg Tablet PO 5 mg BID ROCKY Administration Atorvastatin Calcium 80 mg 11/10/20 09:00 11/12/20 09:39 Atorvastatin Calcium 80 Mg Tablet PO 80 mg DAILY ROCKY Administration Bumetanide 2 mg 11/10/20 09:00 11/12/20 09:39 Bumetanide 1 Mg Tablet PO 2 mg DAILY ROCKY Administration Protocol Dexamethasone 6 mg 11/10/20 09:00 11/12/20 09:41 Dexamethasone 6 Mg Tablet PO 6 mg DAILY ROCKY Administration Doxycycline Hyclate 100 mg 11/10/20 09:00 11/12/20 09:39 Doxycycline Hyclate 100 Mg Tablet PO 100 mg Q12H ROCKY Administration Ceftriaxone Sodium 1 gm/ 50 mls @ 100 mls/hr 11/10/20 21:00 11/12/20 01:42 Sodium Chloride IV Infused Q24H ROCKY Infusion Remdesivir 100 mg/ Sodium 230 mls @ 115 mls/hr 11/11/20 15:00 11/12/20 13:53 Chloride IV 11/14/20 16:59 115 mls/hr Q24H ROCKY Administration Insulin Glargine 20 unit 11/12/20 09:00 11/12/20 09:38 Insulin Glargine,Hum.Rec.Anlog 100 Unit/Ml 10 Ml Vial SUBCUT 20 unit DAILY ROCKY Administration Insulin Human Lispro 0 unit 11/10/20 07:30 11/12/20 11:52 Insulin Lispro 100 Unit/Ml 3 Ml Vial SUBCUT 8 unit QIDACHS [facility] Administration Protocol Isosorbide Mononitrate 60 mg 11/10/20 09:00 11/12/20 09:41 Isosorbide Mononitrate 60 Mg Tab.Er.24h PO 60 mg DAILY ROCKY Administration Protocol Melatonin 3 mg 11/10/20 01:33 11/11/20 23:36 Melatonin 3 Mg Tablet PO 3 mg BEDTIME PRN Administration Sleep Metolazone 2.5 mg 11/10/20 01:33 Metolazone 2.5 Mg Tablet PO ONCE PRN Shortness Of Breath Metoprolol Tartrate 75 mg 11/10/20 09:00 11/12/20 09:40 Metoprolol Tartrate 25 Mg Tablet PO 75 mg DAILY [facility] Administration Protocol Olanzapine 15 mg 11/10/20 01:35 11/11/20 21:31 Olanzapine 7.5 Mg Tablet PO 15 mg BEDTIME ROCKY Administration Omeprazole 20 mg 11/10/20 06:30 11/12/20 05:52 Omeprazole 20 Mg Capsule.Dr PO 20 mg DAILY@0630 [facility] Administration Oxycodone HCl 5 mg 11/11/20 12:51 11/11/20 13:28 Oxycodone Hcl Immed Release 5 Mg Tablet PO 5 mg Q6H PRN Administration Pain, Moderate (Pain Scale 4-6 Pharmacy Consult 1 each 11/10/20 21:14 Consult Rx Vancomycin Dosing MISCELLANE DAILY PRN Consult order Potassium Chloride 20 meq 11/10/20 09:00 11/12/20 09:39 Potassium Chloride Er 20 Meq Tab.Er.Prt PO 20 meq DAILY ROCKY Administration Sertraline HCl 200 mg 11/10/20 09:00 11/12/20 09:41 Sertraline Hcl 100 Mg Tablet PO 200 mg DAILY ROCKY Administration Sodium Chloride 3 ml 11/10/20 00:00 11/12/20 07:47 0.9 % Sodium Chloride Flush 3 Ml Syringe IVFLUSH 3 ml QSHIFT [facility] Administration Spironolactone 50 mg 11/10/20 09:00 11/12/20 09:41 Spironolactone 25 Mg Tablet PO 50 mg DAILY ROCKY Administration Protocol Trazodone HCl 100 mg 11/10/20 01:35 11/11/20 23:36 Trazodone Hcl 100 Mg Tablet PO 100 mg BEDTIME PRN Administration Sleep Labs CBC & Chem 7: 11/10/20 06:23 11/12/20 05:44 Microbiology Microbiology Results: Microbiology 11/09/20 19:57 Blood - Venous Blood Culture - Final Coag negative Staphylococcus 11/09/20 20:54 Blood - Venous Blood Culture - Preliminary No growth after 48 hours. Assessment and Plan (1) Pneumonia due to COVID-19 virus: Status: Acute Assessment and Plan: 65-year-old female with a past medical history of hypertension, hyperlipidemia, diabetes, coronary artery disease, CHF, AFib on Eliquis, arthritis presented to the hospital with a chief complaint of shortness of breath/dry cough noted to have COVID-19 pneumonia. Patient also noted to be in mild respiratory distress- on CPAP briefly in the ER subsequently transition to high-flow oxygen. Admitted to the hospital for further management. Acute hypoxic respiratory failure secondary to COVID-19 pneumonia. Continue high-flow continue oxygen supplemental weaned down as tolerated Continue dexamethasone, Id consulted recommended remdesivir Continue remdesivir monitor LFTs continue Isolation precautions AFib: continue Lopressor and Eliquis CHF: Patient currently appears euvolemic. Continue home medications. Hypertension/hyperlipidemia: Continue Imdur amlodipine and Lopressor Diabetes: continue Insulin sliding scale monitor blood glucose Obesity: Patient likely had MOISÉS continue CPAP at night outpatient sleep studies. DVT prophylaxis: Eliquis Code status: Full code
[2020-11-12 16:33] LABS: Glucose, Whole Blood 265 mg/dL (60-115)
[2020-11-12 21:16] LABS: Glucose, Whole Blood 322 mg/dL (60-115)
[2020-11-12] MEDS: cefTRIAXone sodium 1 GM in 0.9 % Sodium Chloride 50 ML IV (21:37)
[2020-11-12] MEDS: OLANZapine 7.5 MG TABLET 15 MG PO (21:37)
[2020-11-13] VITALS (13 sets, daily range): BP systolic 127–166; BP diastolic 58–77; PULSE 77–88; RESP 18–22; TEMP 36.2–37.3; O2SAT 91–98
[2020-11-13] MEDS: 0.9 % Sodium Chloride Flush 3 ML SYRINGE IVFLUSH ×3 (02:01→14:22)
[2020-11-13] MEDS: oxyCODONE HCl Immed Release 5 MG TABLET PO (03:20)
[2020-11-13] MEDS: Omeprazole 20 MG CAPSULE.DR PO (05:39)
[2020-11-13 06:52] LABS: Alanine Aminotransferase 27 U/L (0-31); Albumin Level 3.4 g/dL (3.5-5.0); Alkaline Phosphatase 139 U/L (39-117); Anion Gap 15 (12-20); Aspartate Amino Transferase 40 U/L (5-31); Bilirubin Direct 0.5 mg/dL (0.0-0.5); Bilirubin Total 0.8 mg/dL (0.0-1.0); Blood Urea Nitrogen 42 mg/dL (9-16); Calcium 8.4 mg/dL (8.4-10.2); Carbon Dioxide 25 mmol/L (22-29); Chloride 97 mmol/L (96-108); Creatinine Clr Calc Pharmacy 83.9; Estimated Glomerular Filt Rate 57; Glucose Random 287 mg/dL (60-115); Potassium 3.8 mmol/L (3.3-5.1); Sodium 133 mmol/L (135-145); Total Protein 6.5 g/dL (6.5-8.0)
[2020-11-13 07:29] LABS: Glucose, Whole Blood 255 mg/dL (60-115)
[2020-11-13] MEDS: Insulin Lispro 100 UNIT/ML 3 ML VIAL SUBCUT ×4 (08:17→21:14)
[2020-11-13] MEDS: Bumetanide 1 MG TABLET 2 MG PO (09:26)
[2020-11-13] MEDS: Metoprolol Tartrate 25 MG TABLET 75 MG PO (09:26)
[2020-11-13] MEDS: Insulin Glargine,Hum.rec.anlog 100 UNIT/ML 10 ML VIAL 20 UNIT SUBCUT (09:26)
[2020-11-13] MEDS: acetaZOLAMIDE 250 MG TABLET PO (09:26)
[2020-11-13] MEDS: Atorvastatin Calcium 80 MG TABLET PO (09:26)
[2020-11-13] MEDS: Isosorbide Mononitrate 60 MG TAB.ER.24H PO (09:27)
[2020-11-13] MEDS: amLODIPine Besylate 5 MG TABLET PO (09:27)
[2020-11-13] MEDS: Spironolactone 25 MG TABLET 50 MG PO (09:27)
[2020-11-13] MEDS: dexAMETHasone 6 MG TABLET PO (09:27)
[2020-11-13] MEDS: Potassium Chloride ER 20 MEQ TAB.ER.PRT PO (09:27)
[2020-11-13] MEDS: Sertraline HCL 100 MG TABLET 200 MG PO (09:28)
[2020-11-13] MEDS: Apixaban 5 MG TABLET PO ×2 (09:28→21:15)
--- NOTE | 2020-11-13 09:36 | MHC.CM.PN ---
CM spoke with patient's dtr/HCP Luz who is asking if she can bring in patient's Ipad and job press feeder so patient can face time with dtr. Per CM supervisor phosphatic fertilizer OK for dtr to bring this in. CM instructed Luz to put tablet and job press feeder in a bag, bring to motel front desk clerk and have them call this CM who will then run down and give to patient after cleaning/disinfecting tablet/cord. CM will continue to follow for discharge needs.
[2020-11-13 11:52] LABS: Glucose, Whole Blood 285 mg/dL (60-115)
[2020-11-13] MEDS: Remdesivir 100 MG in 0.9 % Sodium Chloride 230 ML 115 MG IV (14:21)
--- NOTE | 2020-11-13 14:39 | P.PNIM_ITS ---
Subjective Subjective Date of Service: 11/13/20 Interval History: Patient seen and examined at bedside patient was reporting feeling weak and more short of breath Patient reported coughing Review of Systems Constitutional : No Weight loss, No Fever, No Chills ENT/Mouth : No sore throat, No Rhinorrhea Eyes: No Eye Pain, No Swelling Cardiovascular : No Chest Pain, no palpitations Respiratory : + Cough, No Sputum, ++ shortness of breath Gastrointestinal : no Nausea, No Vomiting, No Diarrhea, No abdominal Pain, no black stools Genitourinary : No Dysuria, No Urinary Frequency Musculoskeletal : No joint pain, No Myalgias, No Joint Swelling Skin : No Skin Lesions, No rash Neuro : No Weakness, No Numbness, No Dizziness, No Headache Psych : No Anxiety/Panic, No Depression Heme/Lymph: No Bruising, No Lymphadenopathy Endocrine : No Polyuria, No Polydipsia All other systems reviewed and are negative Physical Exam Vital Signs: Vital Signs: Last Vital Signs Temp 98.6 F 11/13/20 11:58 Pulse 77 11/13/20 11:58 Resp 20 11/13/20 12:07 BP 127/58 L 11/13/20 11:58 Pulse Ox 96 11/13/20 11:58 Body Mass Index 53.2 Const: General: in distress mild and ill appearing Nutritional Appearance: obese Orientation/consciousness: patient oriented x3 HENMT: Head: Yes normal to inspection Ears: hearing grossly normal bilaterally General nose exam: Normal external nose present Eyes: General: appearance normal, both eyes and all related structures Conjunctivae: conjunctivae normal Sclerae: sclerae normal Pupils: Equal, round and reactive pupils present Neck: Neck: Yes normal visual inspection Thyroid: Thyroid normal Carotids: normal carotid upstroke Chest: Chest palpation & inspection: normal palpation of entire chest wall Resp: Effort & Inspection: labored and tachypneic Auscultation: crackles (Occasional bilateral bases), no rales, rhonchi, wheezes and diminished lung sounds Cardio: Jugular venous distension: no JVD Palpation: normal PMI Rate: regular rate Rhythm: regular rhythm Heart sounds: S1 normal heart sound present, S2 normal heart sound present and Murmur heart sound present (Right Parasternal pansystolic) Peripheral pulses: Peripheral pulses 2+ throughout GI: Inspection: Yes normal to inspection Palpation (GI): Soft to palpation and nontender Auscultation: normal bowel sounds : General: Yes no CVA tenderness Back/Spine/Pelvis: Back: no CVA tenderness Thoracic/Lumbar Spine: thoracic and lumbar spine normal to inspection Skin: General skin exam: no rashes or lesions noted Neuro: General: patient oriented x3 and no focal motor deficits Cranial nerves: Yes Equal, round and reactive pupils present Extrem: General: Yes no calf tenderness and Yes pedal edema (2+) Objective Data Current Medications Generic Name Dose Route Start Last Admin Trade Name Freq PRN Reason Stop Dose Admin Acetaminophen 650 mg 11/09/20 23:12 11/10/20 21:42 Acetaminophen 325 Mg Tablet PO 650 mg Q6H PRN Administration Pain, Mild (Pain Scale 1-3) Acetazolamide 250 mg 11/10/20 09:00 11/13/20 09:26 Acetazolamide 250 Mg Tablet PO 250 mg BID ROCKY Administration Albuterol Sulfate 2.5 mg 11/10/20 01:33 Albuterol Sulfate (0.083%) 2.5 Mg/3 Ml Vial.Neb INHALE Q4H PRN Shortness Of Breath Albuterol Sulfate 4 puff 11/10/20 01:33 Albuterol Sulfate 90 Mcg 8 Gm Inhaler INHALE Q3H PRN Shortness Of Breath Amlodipine Besylate 5 mg 11/10/20 09:00 11/13/20 09:27 Amlodipine Besylate 5 Mg Tablet PO 5 mg DAILY ROCKY Administration Protocol Apixaban 5 mg 11/10/20 09:00 11/13/20 09:28 Apixaban 5 Mg Tablet PO 5 mg BID ROCKY Administration Atorvastatin Calcium 80 mg 11/10/20 09:00 11/13/20 09:26 Atorvastatin Calcium 80 Mg Tablet PO 80 mg DAILY ROCKY Administration Bumetanide 2 mg 11/10/20 09:00 11/13/20 09:26 Bumetanide 1 Mg Tablet PO 2 mg DAILY ROCKY Administration Protocol Dexamethasone 6 mg 11/10/20 09:00 11/13/20 09:27 Dexamethasone 6 Mg Tablet PO 6 mg DAILY ROCKY Administration Doxycycline Hyclate 100 mg 11/10/20 09:00 11/13/20 09:28 Doxycycline Hyclate 100 Mg Tablet PO 100 mg Q12H ROCKY Administration Guaifenesin 5 ml 11/13/20 14:24 Guaifenesin 100 Mg/5 Ml Liquid PO Q4H PRN Cough Ceftriaxone Sodium 1 gm/ 50 mls @ 100 mls/hr 11/10/20 21:00 11/12/20 22:11 Sodium Chloride IV Infused Q24H ROCKY Infusion Remdesivir 100 mg/ Sodium 230 mls @ 115 mls/hr 11/11/20 15:00 11/13/20 14:21 Chloride IV 11/14/20 16:59 115 mls/hr Q24H ROCKY Administration Insulin Glargine 20 unit 11/12/20 09:00 11/13/20 09:26 Insulin Glargine,Hum.Rec.Anlog 100 Unit/Ml 10 Ml Vial SUBCUT 20 unit DAILY [facility] Administration Insulin Human Lispro 0 unit 11/10/20 07:30 11/13/20 12:11 Insulin Lispro 100 Unit/Ml 3 Ml Vial SUBCUT 6 unit QIDACHS [facility] Administration Protocol Isosorbide Mononitrate 60 mg 11/10/20 09:00 11/13/20 09:27 Isosorbide Mononitrate 60 Mg Tab.Er.24h PO 60 mg DAILY [facility] Administration Protocol Melatonin 3 mg 11/10/20 01:33 11/11/20 23:36 Melatonin 3 Mg Tablet PO 3 mg BEDTIME PRN Administration Sleep Metolazone 2.5 mg 11/10/20 01:33 Metolazone 2.5 Mg Tablet PO ONCE PRN Shortness Of Breath Metoprolol Tartrate 75 mg 11/10/20 09:00 11/13/20 09:26 Metoprolol Tartrate 25 Mg Tablet PO 75 mg DAILY [facility] Administration Protocol Olanzapine 15 mg 11/10/20 01:35 11/12/20 21:37 Olanzapine 7.5 Mg Tablet PO 15 mg BEDTIME ROCKY Administration Omeprazole 20 mg 11/10/20 06:30 11/13/20 05:39 Omeprazole 20 Mg Capsule.Dr PO 20 mg DAILY@0630 [facility] Administration Oxycodone HCl 5 mg 11/11/20 12:51 11/13/20 03:20 Oxycodone Hcl Immed Release 5 Mg Tablet PO 5 mg Q6H PRN Administration Pain, Moderate (Pain Scale 4-6 Pharmacy Consult 1 each 11/10/20 21:14 Consult Rx Vancomycin Dosing MISCELLANE DAILY PRN Consult order Potassium Chloride 20 meq 11/10/20 09:00 02/25/21 09:27 Potassium Chloride Er 20 Meq Tab.Er.Prt PO 20 meq DAILY ROCKY Administration Sertraline HCl 200 mg 11/10/20 09:00 11/13/20 09:28 Sertraline Hcl 100 Mg Tablet PO 200 mg DAILY ROCKY Administration Sodium Chloride 3 ml 11/10/20 00:00 11/13/20 14:22 0.9 % Sodium Chloride Flush 3 Ml Syringe IVFLUSH 3 ml QSHIFT ROCKY Administration Spironolactone 50 mg 11/10/20 09:00 11/13/20 09:27 Spironolactone 25 Mg Tablet PO 50 mg DAILY ROCKY Administration Protocol Trazodone HCl 100 mg 11/10/20 01:35 11/11/20 23:36 Trazodone Hcl 100 Mg Tablet PO 100 mg BEDTIME PRN Administration Sleep Labs CBC & Chem 7: 11/10/20 06:23 11/13/20 05:38 Microbiology Microbiology Results: Microbiology 11/09/20 19:57 Blood - Venous Blood Culture - Final Coag negative Staphylococcus 11/09/20 20:54 Blood - Venous Blood Culture - Preliminary No growth after 48 hours. Assessment and Plan (1) Pneumonia due to COVID-19 virus: Status: Acute Assessment and Plan: 65-year-old female with a past medical history of hypertension, hyperlipidemia, diabetes, coronary artery disease, CHF, AFib on Eliquis, arthritis presented to the hospital with a chief complaint of shortness of breath/dry cough noted to have COVID-19 pneumonia. Patient also noted to be in mild respiratory distress- on CPAP briefly in the ER subsequently transition to high-flow oxygen. Admitted to the hospital for further management. Acute hypoxic respiratory failure secondary to COVID-19 pneumonia. Continue high-flow Continue dexamethasone, Id consulted recommended remdesivir Continue remdesivir monitor LFTs continue Isolation precautions Will start on cough medicine Monitor closely AFib: continue Lopressor and Eliquis CHF: Patient currently appears euvolemic. Continue home medications. Hypertension/hyperlipidemia: Continue Imdur amlodipine and Lopressor Diabetes: continue Insulin sliding scale monitor blood glucose Obesity: Patient likely had MOISÉS continue CPAP at night outpatient sleep studies. DVT prophylaxis: Eliquis Code status: Full code
[2020-11-13] MEDS: Cholecalciferol (Vitamin D3) 25 MCG TABLET 50 MCG PO (15:15)
[2020-11-13] MEDS: guaiFENesin 100 MG/5 ML LIQUID PO (15:18)
[2020-11-13 16:07] LABS: Glucose, Whole Blood 226 mg/dL (60-115)
[2020-11-13] MEDS: Bumetanide 1 MG/4 ML VIAL 2 MG IVPUSH (17:39)
--- NOTE | 2020-11-13 18:45 | PC.NURSE ---
1715 lungs increased coarseness, SAT 88-90% coughing, non prod cough. Yelling I can;t breathe Dr Abernathy made aware, New order for IV bumex received and given. 1800 sleeping at this time. SAT 93% HOB elevated. resp even, no coughing at this time.
[2020-11-13 19:09] LABS: B Type Natriuretic Peptide 92 pg/mL (<100)
[2020-11-13 20:34] LABS: Glucose, Whole Blood 352 mg/dL (60-115)
[2020-11-13] MEDS: Ascorbic Acid 500 MG TABLET PO (21:15)
[2020-11-13] MEDS: OLANZapine 7.5 MG TABLET 15 MG PO (21:15)
[2020-11-13] MEDS: cefTRIAXone sodium 1 GM in 0.9 % Sodium Chloride 50 ML IV (21:15)
--- NOTE | 2020-11-13 22:46 | PC.NURSE ---
2100 Bedtime poc 352, covered with 10 units humalog per sliding scale. MD made aware of blood sugar, per md no additional coverage at this time.
[2020-11-14] VITALS (15 sets, daily range): BP systolic 130–155; BP diastolic 63–82; PULSE 77–96; RESP 19–28; TEMP 36–37.1; O2SAT 85–96
[2020-11-14] MEDS: 0.9 % Sodium Chloride Flush 3 ML SYRINGE IVFLUSH ×3 (00:39→15:27)
[2020-11-14] MEDS: Omeprazole 20 MG CAPSULE.DR PO (06:02)
[2020-11-14 07:17] LABS: Anion Gap 17 (12-20); Blood Urea Nitrogen 51 mg/dL (9-16); Calcium 8.7 mg/dL (8.4-10.2); Carbon Dioxide 27 mmol/L (22-29); Chloride 94 mmol/L (96-108); Creatinine Clr Calc Pharmacy 70.3; Estimated Glomerular Filt Rate 46; Glucose Random 324 mg/dL (60-115); Potassium 4.1 mmol/L (3.3-5.1); Sodium 134 mmol/L (135-145)
[2020-11-14 07:51] LABS: Glucose, Whole Blood 298 mg/dL (60-115)
[2020-11-14] MEDS: Insulin Lispro 100 UNIT/ML 3 ML VIAL SUBCUT ×4 (08:16→20:20)
[2020-11-14] MEDS: Insulin Glargine,Hum.rec.anlog 100 UNIT/ML 10 ML VIAL 20 UNIT SUBCUT (08:17)
[2020-11-14] MEDS: Potassium Chloride ER 20 MEQ TAB.ER.PRT PO (08:17)
[2020-11-14] MEDS: Apixaban 5 MG TABLET PO ×2 (08:17→20:16)
[2020-11-14] MEDS: Cholecalciferol (Vitamin D3) 25 MCG TABLET 50 MCG PO (08:18)
[2020-11-14] MEDS: Sertraline HCL 100 MG TABLET 200 MG PO (08:18)
[2020-11-14] MEDS: Ascorbic Acid 500 MG TABLET PO ×2 (08:18→20:16)
[2020-11-14] MEDS: Atorvastatin Calcium 80 MG TABLET PO (08:18)
[2020-11-14] MEDS: dexAMETHasone 6 MG TABLET PO (08:18)
[2020-11-14] MEDS: Spironolactone 25 MG TABLET 50 MG PO (08:19)
[2020-11-14] MEDS: Metoprolol Tartrate 25 MG TABLET 75 MG PO (08:19)
[2020-11-14] MEDS: Isosorbide Mononitrate 60 MG TAB.ER.24H PO (08:19)
[2020-11-14] MEDS: amLODIPine Besylate 5 MG TABLET PO (08:19)
[2020-11-14 11:31] LABS: Glucose, Whole Blood 334 mg/dL (60-115)
--- NOTE | 2020-11-14 11:38 | MHC.CM.PN ---
Patient is requiring BIPAP with FIO2 at 80% and is on IV Remdesivir day 4/4. Also on PO Doxycycline and PO Decadron for +COVID. Discharge plan is home with resumption of [facility] and [facility] services pending PT eval. Patient may need help with transport. CM will continue to follow patient for discharge plan.
[2020-11-14] MEDS: Albuterol Sulfate 90 MCG 8 GM INHALER 4 PUFF INHALE (11:55)
[2020-11-14] MEDS: Remdesivir 100 MG in 0.9 % Sodium Chloride 230 ML 115 MG IV (15:26)
[2020-11-14 16:09] LABS: Glucose, Whole Blood 316 mg/dL (60-115)
--- NOTE | 2020-11-14 16:44 | HO.PM.IMPN ---
Subjective Subjective Date of Service: 11/14/20 Interval History: Patient seen and examined at bedside patient was reporting cough and sob Still requiring high-flow Review of Systems Constitutional : No Weight loss, No Fever, No Chills ENT/Mouth : No sore throat, No Rhinorrhea Eyes: No Eye Pain, No Swelling Cardiovascular : No Chest Pain, no palpitations Respiratory : + Cough, No Sputum, ++ shortness of breath Gastrointestinal : no Nausea, No Vomiting, No Diarrhea, No abdominal Pain, no black stools Genitourinary : No Dysuria, No Urinary Frequency Musculoskeletal : No joint pain, No Myalgias, No Joint Swelling Skin : No Skin Lesions, No rash Neuro : No Weakness, No Numbness, No Dizziness, No Headache Psych : No Anxiety/Panic, No Depression Heme/Lymph: No Bruising, No Lymphadenopathy Endocrine : No Polyuria, No Polydipsia All other systems reviewed and are negative Physical Exam Vital Signs: Vital Signs: Last Vital Signs Temp 96.8 F 11/14/20 15:24 Pulse 88 11/14/20 15:24 Resp 20 11/14/20 15:24 BP 155/63 H 11/14/20 15:24 Pulse Ox 90 L 11/14/20 15:24 Body Mass Index 53.2 Const: General: in distress mild and ill appearing Nutritional Appearance: obese Orientation/consciousness: patient oriented x3 HENMT: Head: Yes normal to inspection Ears: hearing grossly normal bilaterally General nose exam: Normal external nose present Eyes: General: appearance normal, both eyes and all related structures Conjunctivae: conjunctivae normal Sclerae: sclerae normal Pupils: Equal, round and reactive pupils present Neck: Neck: Yes normal visual inspection Thyroid: Thyroid normal Carotids: normal carotid upstroke Chest: Chest palpation & inspection: normal palpation of entire chest wall Resp: Effort & Inspection: labored and tachypneic Auscultation: crackles (Occasional bilateral bases), no rales, rhonchi, wheezes and diminished lung sounds Cardio: Jugular venous distension: no JVD Palpation: normal PMI Rate: regular rate Rhythm: regular rhythm Heart sounds: S1 normal heart sound present, S2 normal heart sound present and Murmur heart sound present (Right Parasternal pansystolic) Peripheral pulses: Peripheral pulses 2+ throughout GI: Inspection: Yes normal to inspection Palpation (GI): Soft to palpation and nontender Auscultation: normal bowel sounds : General: Yes no CVA tenderness Back/Spine/Pelvis: Back: no CVA tenderness Thoracic/Lumbar Spine: thoracic and lumbar spine normal to inspection Skin: General skin exam: no rashes or lesions noted Neuro: General: patient oriented x3 and no focal motor deficits Cranial nerves: Yes Equal, round and reactive pupils present Extrem: General: Yes no calf tenderness and Yes pedal edema (2+) Objective Data Current Medications Generic Name Dose Route Start Last Admin Trade Name Freq PRN Reason Stop Dose Admin Acetaminophen 650 mg 11/09/20 23:12 11/10/20 21:42 Acetaminophen 325 Mg Tablet PO 650 mg Q6H PRN Administration Pain, Mild (Pain Scale 1-3) Albuterol Sulfate 2.5 mg 11/10/20 01:33 Albuterol Sulfate (0.083%) 2.5 Mg/3 Ml Vial.Neb INHALE Q4H PRN Shortness Of Breath Albuterol Sulfate 4 puff 11/10/20 01:33 11/14/20 11:55 Albuterol Sulfate 90 Mcg 8 Gm Inhaler INHALE 4 puff Q3H PRN Administration Shortness Of Breath Amlodipine Besylate 5 mg 11/10/20 09:00 11/14/20 08:19 Amlodipine Besylate 5 Mg Tablet PO 5 mg DAILY ROCKY Administration Protocol Apixaban 5 mg 11/10/20 09:00 11/14/20 08:17 Apixaban 5 Mg Tablet PO 5 mg BID ROCKY Administration Ascorbic Acid 500 mg 11/13/20 21:00 11/14/20 08:18 Ascorbic Acid 500 Mg Tablet PO 500 mg BID ROCKY Administration Atorvastatin Calcium 80 mg 11/10/20 09:00 11/14/20 08:18 Atorvastatin Calcium 80 Mg Tablet PO 80 mg DAILY ROCKY Administration Dexamethasone 6 mg 11/10/20 09:00 11/14/20 08:18 Dexamethasone 6 Mg Tablet PO 6 mg DAILY ROCKY Administration Doxycycline Hyclate 100 mg 11/10/20 09:00 11/14/20 08:17 Doxycycline Hyclate 100 Mg Tablet PO 100 mg Q12H ROCKY Administration Guaifenesin 5 ml 11/13/20 14:24 11/13/20 15:18 Guaifenesin 100 Mg/5 Ml Liquid PO 5 ml Q4H PRN Administration Cough Ceftriaxone Sodium 1 gm/ 50 mls @ 100 mls/hr 11/10/20 21:00 11/13/20 22:00 Sodium Chloride IV Infused Q24H ROCKY Infusion Remdesivir 100 mg/ Sodium 230 mls @ 115 mls/hr 11/11/20 15:00 11/14/20 15:26 Chloride IV 11/14/20 16:59 115 mls/hr Q24H ROCKY Administration Insulin Glargine 20 unit 11/12/20 09:00 11/14/20 08:17 Insulin Glargine,Hum.Rec.Anlog 100 Unit/Ml 10 Ml Vial SUBCUT 20 unit DAILY ROCKY Administration Insulin Human Lispro 0 unit 11/10/20 07:30 11/14/20 11:53 Insulin Lispro 100 Unit/Ml 3 Ml Vial SUBCUT 8 unit QIDACHS [facility] Administration Protocol Isosorbide Mononitrate 60 mg 11/10/20 09:00 11/14/20 08:19 Isosorbide Mononitrate 60 Mg Tab.Er.24h PO 60 mg DAILY ROCKY Administration Protocol Melatonin 3 mg 11/10/20 01:33 11/11/20 23:36 Melatonin 3 Mg Tablet PO 3 mg BEDTIME PRN Administration Sleep Metolazone 2.5 mg 11/10/20 01:33 Metolazone 2.5 Mg Tablet PO ONCE PRN Shortness Of Breath Metoprolol Tartrate 75 mg 11/10/20 09:00 11/14/20 08:19 Metoprolol Tartrate 25 Mg Tablet PO 75 mg DAILY ROCKY Administration Protocol Olanzapine 15 mg 11/10/20 01:35 11/13/20 21:15 Olanzapine 7.5 Mg Tablet PO 15 mg BEDTIME ROCKY Administration Omeprazole 20 mg 11/10/20 06:30 11/14/20 06:02 Omeprazole 20 Mg Capsule.Dr PO 20 mg DAILY@0630 [facility] Administration Oxycodone HCl 5 mg 11/11/20 12:51 11/13/20 03:20 Oxycodone Hcl Immed Release 5 Mg Tablet PO 5 mg Q6H PRN Administration Pain, Moderate (Pain Scale 4-6 Pharmacy Consult 1 each 11/10/20 21:14 Consult Rx Vancomycin Dosing MISCELLANE DAILY PRN Consult order Potassium Chloride 20 meq 11/10/20 09:00 11/14/20 08:17 Potassium Chloride Er 20 Meq Tab.Er.Prt PO 20 meq DAILY ROCKY Administration Sertraline HCl 200 mg 11/10/20 09:00 11/14/20 08:18 Sertraline Hcl 100 Mg Tablet PO 200 mg DAILY ROCKY Administration Sodium Chloride 3 ml 11/10/20 00:00 11/14/20 15:27 0.9 % Sodium Chloride Flush 3 Ml Syringe IVFLUSH 3 ml QSHIFT ROCKY Administration Spironolactone 50 mg 11/10/20 09:00 11/14/20 08:19 Spironolactone 25 Mg Tablet PO 50 mg DAILY ROCKY Administration Protocol Trazodone HCl 100 mg 11/10/20 01:35 11/11/20 23:36 Trazodone Hcl 100 Mg Tablet PO 100 mg BEDTIME PRN Administration Sleep Vitamin D 50 mcg 11/13/20 15:15 11/14/20 08:18 Cholecalciferol (Vitamin D3) 25 Mcg Tablet PO 50 mcg DAILY ROCKY Administration Labs CBC & Chem 7: 11/10/20 06:23 11/14/20 05:45 Microbiology Microbiology Results: Microbiology 11/09/20 19:57 Blood - Venous Blood Culture - Final Coag negative Staphylococcus 11/09/20 20:54 Blood - Venous Blood Culture - Preliminary No growth after 48 hours. Assessment and Plan (1) Pneumonia due to COVID-19 virus: Status: Acute Assessment and Plan: 65-year-old female with a past medical history of hypertension, hyperlipidemia, diabetes, coronary artery disease, CHF, AFib on Eliquis, arthritis presented to the hospital with a chief complaint of shortness of breath/dry cough noted to have COVID-19 pneumonia. Patient also noted to be in mild respiratory distress-on CPAP briefly in the ER subsequently transition to high-flow oxygen. Admitted to the hospital for further management. Acute hypoxic respiratory failure secondary to COVID-19 pneumonia. Continue high-flow Continue dexamethasone, Id consulted recommended remdesivir Continue remdesivir monitor LFTs continue Isolation precautions cough medicine Monitor closely AFib: continue Lopressor and Eliquis CHF: Patient currently appears euvolemic. Continue Bumex Hypertension/hyperlipidemia: Continue Imdur amlodipine and Lopressor Diabetes: continue Insulin sliding scale monitor blood glucose Obesity: Patient likely had MOISÉS continue CPAP at night outpatient sleep studies. DVT prophylaxis: Eliquis Code status: Full code
[2020-11-14 19:34] LABS: Glucose, Whole Blood 263 mg/dL (60-115)
[2020-11-14] MEDS: cefTRIAXone sodium 1 GM in 0.9 % Sodium Chloride 50 ML IV (20:15)
[2020-11-14] MEDS: OLANZapine 7.5 MG TABLET 15 MG PO (20:16)
[2020-11-14] MEDS: traZODone HCL 100 MG TABLET PO (20:16)
[2020-11-14] MEDS: guaiFENesin 100 MG/5 ML LIQUID PO (20:24)
[2020-11-14] MEDS: oxyCODONE HCl Immed Release 5 MG TABLET PO (20:24)
[2020-11-15] VITALS (20 sets, daily range): BP systolic 119–179; BP diastolic 59–79; PULSE 75–200; RESP 18–24; TEMP 36–37; O2SAT 83–98
--- NOTE | 2020-11-15 | ECG_ITS ---
Test Reason : CP Blood Pressure : / mmHG Vent. Rate : 167 BPM Atrial Rate : 241 BPM P-R Int : 000 ms QRS Dur : 090 ms QT Int : 322 ms P-R-T Axes : 000 -33 204 degrees QTc Int : 537 ms Atrial fibrillation with rapid ventricular response Left axis deviation Voltage criteria for left ventricular hypertrophy Marked ST abnormality, possible inferior subendocardial injury Abnormal ECG When compared to the previous EKG of nov 10, 2020, rhythm change Referred By: Osman Santana Electronically Signed By:LAMINE MCKEON
[2020-11-15] MEDS: 0.9 % Sodium Chloride Flush 3 ML SYRINGE IVFLUSH ×2 (00:25→20:32)
[2020-11-15 07:18] LABS: Glucose, Whole Blood 197 mg/dL (60-115)
[2020-11-15] MEDS: Metoprolol Tartrate 5 MG/5 ML VIAL IVPUSH (07:32)
[2020-11-15] MEDS: dilTIAZem HCL 50 MG/10 ML VIAL 10 MG IVPUSH (07:32)
[2020-11-15] MEDS: dilTIAZem HCL 125 MG in 0.9 % Sodium Chloride 100 ML 10 MG IVCONT (07:48)
--- NOTE | 2020-11-15 07:51 | PC.NURSE ---
At approximately 0645 - during shift report- patient became tachy , reaching a rate of 200 bpm. This RN went in immediately to assess the patient who was complaining of diffuse chest pain and pressure. Vital signs were obtained and an EKG was performed which showed the patient to be in rapid afib. Dr. Brian came to the patients bedside and 5mg of Lopressor IVP was ordered and given. Patient was still sustaining a heart rate in the 180's at this time and 10mg Cardizem was ordered and was administered, IVP. Patient reacted slightly to this with a heart rate lowering down to the 140's on the monitor, still in atrial fibrillation. The patients other vital signs were stable, afebrile and blood pressure wnl. Dr. Brian spoke with Dr. Santana who will be resuming care of the patient and a Cardizem drip was ordered. The patient was started on a Cardizem gtt at 10mg/hr. Heart rate at this time is 160's, gtt increased to 15mg/hr. At this point in time the patient does not complain of any discomfort or chest pain.This RN gave report to Ana M Arias RN who will resume care of patient.
[2020-11-15] MEDS: Digoxin 0.5 MG/2 ML AMPUL 0.25 MG IVPUSH (09:14)
[2020-11-15] MEDS: Atorvastatin Calcium 80 MG TABLET PO (09:16)
[2020-11-15] MEDS: Ascorbic Acid 500 MG TABLET PO ×2 (09:16→20:04)
[2020-11-15] MEDS: Bumetanide 1 MG TABLET 2 MG PO (09:16)
[2020-11-15] MEDS: dexAMETHasone 6 MG TABLET PO (09:16)
[2020-11-15] MEDS: Spironolactone 25 MG TABLET 50 MG PO (09:17)
[2020-11-15] MEDS: Metoprolol Tartrate 25 MG TABLET 75 MG PO (09:17)
[2020-11-15] MEDS: Potassium Chloride ER 20 MEQ TAB.ER.PRT PO (09:17)
[2020-11-15] MEDS: Apixaban 5 MG TABLET PO ×2 (09:18→20:04)
[2020-11-15] MEDS: Isosorbide Mononitrate 60 MG TAB.ER.24H PO (09:18)
[2020-11-15] MEDS: Sertraline HCL 100 MG TABLET 200 MG PO (09:18)
[2020-11-15] MEDS: Insulin Glargine,Hum.rec.anlog 100 UNIT/ML 10 ML VIAL 20 UNIT SUBCUT (09:18)
[2020-11-15] MEDS: Cholecalciferol (Vitamin D3) 25 MCG TABLET 50 MCG PO (09:18)
[2020-11-15] MEDS: amLODIPine Besylate 5 MG TABLET PO (09:18)
[2020-11-15] MEDS: Insulin Lispro 100 UNIT/ML 3 ML VIAL SUBCUT ×4 (09:19→20:06)
--- NOTE | 2020-11-15 09:33 | PC.NURSE ---
HR continues up to 180s afib on tele. cardizem drip maxed out on 15 mg/hr. md at bedside to assess. IV push digoxin ordered and given with pending effects. scheduled am 02 sat 90-92% on HFNC + NRB. tachypneic with RR 32. lungs dim bilat.
[2020-11-15 10:31] LABS: Basophils Percent Auto 0.1 % (0-2); Eosinophils Absolute Auto 0.2 X10*3/uL (0.0-0.4); Eosinophils Percent Auto 1.3 % (0-4); Hematocrit 41.9 % (37-47); Hemoglobin 13.5 g/dl (12.0-16.0); Imm Gran Abs Auto 0.17 X10*3/uL (0.00-0.03); Imm Gran Pct Auto 1.4 % (0.0-0.4); Lymphocytes Absolute Auto 0.7 X10*3/uL (1.2-4.9); Lymphocytes Percent Auto 5.7 % (20-40); MANUAL DIFF FLAG SCAN; Mean Corpuscular HGB Conc 32.2 g/dl (31.0-35.0); Mean Corpuscular Hemoglobin 25.7 pg (27.0-33.0); Mean Corpuscular Volume 79.7 fL (80-98); Mean Platelet Volume 9.5 fL (9.4-12.3); Monocytes Absolute Auto 0.2 X10*3/uL (0.1-1.2); Monocytes Percent Auto 1.4 % (2-11); Neutrophils Percent Auto 90.1 % (45-73); Platelet Count 185 X10*3/uL (160-400); Red Blood Count 5.26 X10*6/uL (4.20-5.50); Red Cell Distribution Width 16.4 % (11.0-16.0); SCAN SMEAR FLAG 1; White Blood Count 12.2 X10*3/uL (4.8-10.8)
[2020-11-15 10:51] LABS: SLIDE REVIEW VERIFIED
[2020-11-15 10:58] LABS: Anion Gap 18 (12-20); Blood Urea Nitrogen 52 mg/dL (9-16); Calcium 8.8 mg/dL (8.4-10.2); Carbon Dioxide 23 mmol/L (22-29); Chloride 96 mmol/L (96-108); Creatinine Clr Calc Pharmacy 78.3; Estimated Glomerular Filt Rate 52; Glucose Random 208 mg/dL (60-115); Magnesium 1.8 mg/dL (1.6-2.6); Potassium 4.4 mmol/L (3.3-5.1); Sodium 133 mmol/L (135-145)
[2020-11-15 11:03] LABS: B Type Natriuretic Peptide 69 pg/mL (<100); Troponin-I High Sensitivity 6.7 ng/L (<3.5-17.0)
[2020-11-15 11:16] LABS: Glucose, Whole Blood 196 mg/dL (60-115)
[2020-11-15] MEDS: guaiFENesin 100 MG/5 ML LIQUID PO (11:29)
[2020-11-15] MEDS: oxyCODONE HCl Immed Release 5 MG TABLET PO (11:29)
[2020-11-15] MEDS: Amiodarone HCL 900 MG in 0.9 % Sodium Chloride 500 ML 34.53 MG IVCONT (12:44)
--- NOTE | 2020-11-15 14:18 | HO.PM.IMPN ---
Subjective Subjective Date of Service: 11/15/20 Interval History: Seen in f/u for covid related acute hypoxic resp failure, she went into AFIB with RVR this morning, received IV Metoprolol, followed by cardizem and then IV Amiodarone and is now in sinus. She remains on high flow and NRB Review of Systems Gen: fever Resp: + sob, no cough CV: no chest, +HUMPHREYS, no leg edema GI: No n/v, no abd pain Neuro: No confusion Physical Exam Vital Signs: Vital Signs: Last Vital Signs Temp 98 F 11/15/20 10:53 Pulse 128 H 11/15/20 12:44 Resp 22 H 11/15/20 12:30 BP 125/62 11/15/20 12:44 Pulse Ox 92 11/15/20 10:53 Body Mass Index 53.2 Const: General: in distress mild and ill appearing Nutritional Appearance: obese Orientation/consciousness: patient oriented x3 HENMT: Ears: hearing grossly normal bilaterally General nose exam: Normal external nose present Resp: Effort & Inspection: labored and tachypneic Auscultation: crackles (Occasional bilateral bases), no rales, rhonchi, wheezes and diminished lung sounds Cardio: Jugular venous distension: no JVD Rate: regular rate Rhythm: regular rhythm Heart sounds: S1 normal heart sound present, S2 normal heart sound present and Murmur heart sound present (Right Parasternal pansystolic) Peripheral pulses: Peripheral pulses 2+ throughout GI: Inspection: Yes normal to inspection Palpation (GI): Soft to palpation and nontender Auscultation: normal bowel sounds Back/Spine/Pelvis: Thoracic/Lumbar Spine: thoracic and lumbar spine normal to inspection Skin: General skin exam: no rashes or lesions noted Neuro: General: patient oriented x3 and no focal motor deficits Extrem: General: Yes no calf tenderness and Yes pedal edema (2+) Objective Data Current Medications Generic Name Dose Route Start Last Admin Trade Name Freq PRN Reason Stop Dose Admin Acetaminophen 650 mg 11/09/20 23:12 11/10/20 21:42 Acetaminophen 325 Mg Tablet PO 650 mg Q6H PRN Administration Pain, Mild (Pain Scale 1-3) Albuterol Sulfate 2.5 mg 11/10/20 01:33 Albuterol Sulfate (0.083%) 2.5 Mg/3 Ml Vial.Neb INHALE Q4H PRN Shortness Of Breath Albuterol Sulfate 4 puff 11/10/20 01:33 11/14/20 11:55 Albuterol Sulfate 90 Mcg 8 Gm Inhaler INHALE 4 puff Q3H PRN Administration Shortness Of Breath Amlodipine Besylate 5 mg 11/10/20 09:00 11/15/20 09:18 Amlodipine Besylate 5 Mg Tablet PO 5 mg DAILY [facility] Administration Protocol Apixaban 5 mg 11/10/20 09:00 11/15/20 09:18 Apixaban 5 Mg Tablet PO 5 mg BID [facility] Administration Ascorbic Acid 500 mg 11/13/20 21:00 11/15/20 09:16 Ascorbic Acid 500 Mg Tablet PO 500 mg BID [facility] Administration Atorvastatin Calcium 80 mg 11/10/20 09:00 11/15/20 09:16 Atorvastatin Calcium 80 Mg Tablet PO 80 mg DAILY [facility] Administration Bumetanide 2 mg 11/15/20 09:00 11/15/20 09:16 Bumetanide 1 Mg Tablet PO 2 mg DAILY [facility] Administration Protocol Dexamethasone 6 mg 11/10/20 09:00 11/15/20 09:16 Dexamethasone 6 Mg Tablet PO 6 mg DAILY [facility] Administration Digoxin 0.25 mg 11/15/20 09:00 11/15/20 12:43 Digoxin 0.5 Mg/2 Ml Ampul IVPUSH 11/15/20 15:01 Not Given Q6H [facility] Doxycycline Hyclate 100 mg 11/10/20 09:00 11/15/20 09:17 Doxycycline Hyclate 100 Mg Tablet PO 100 mg Q12H [facility] Administration Guaifenesin 5 ml 11/13/20 14:24 11/15/20 11:29 Guaifenesin 100 Mg/5 Ml Liquid PO 5 ml Q4H PRN Administration Cough Ceftriaxone Sodium 1 gm/ 50 mls @ 100 mls/hr 11/10/20 21:00 11/14/20 20:45 Sodium Chloride IV Infused Q24H [facility] Infusion Diltiazem HCl 125 mg/ Sodium 125 mls @ 0 mls/hr 11/15/20 07:45 11/15/20 12:44 Chloride IVCONT 0 mg/hr .Q0M [facility] 0 mls/hr Titration Protocol Per Protocol Amiodarone HCl 900 mg/ Sodium 518 mls @ 34.533 mls/hr 11/15/20 11:45 02/27/21 12:44 Chloride IVCONT 1 mg/min .Q15H1M [facility] 34.53 mls/hr Administration Protocol 1 MG/MIN Insulin Glargine 20 unit 11/12/20 09:00 11/15/20 09:18 Insulin Glargine,Hum.Rec.Anlog 100 Unit/Ml 10 Ml Vial SUBCUT 20 unit DAILY [facility] Administration Insulin Human Lispro 0 unit 11/10/20 07:30 11/15/20 11:29 Insulin Lispro 100 Unit/Ml 3 Ml Vial SUBCUT 2 unit QIDACHS [facility] Administration Protocol Isosorbide Mononitrate 60 mg 11/10/20 09:00 11/15/20 09:18 Isosorbide Mononitrate 60 Mg Tab.Er.24h PO 60 mg DAILY [facility] Administration Protocol Melatonin 3 mg 11/10/20 01:33 11/11/20 23:36 Melatonin 3 Mg Tablet PO 3 mg BEDTIME PRN Administration Sleep Metolazone 2.5 mg 11/10/20 01:33 Metolazone 2.5 Mg Tablet PO ONCE PRN Shortness Of Breath Metoprolol Tartrate 75 mg 11/10/20 09:00 11/15/20 09:17 Metoprolol Tartrate 25 Mg Tablet PO 75 mg DAILY [facility] Administration Protocol Olanzapine 15 mg 11/10/20 01:35 11/14/20 20:16 Olanzapine 7.5 Mg Tablet PO 15 mg BEDTIME [facility] Administration Omeprazole 20 mg 11/10/20 06:30 11/15/20 05:47 Omeprazole 20 Mg Capsule.Dr PO Not Given DAILY@0630 [facility] Oxycodone HCl 5 mg 11/11/20 12:51 11/15/20 11:29 Oxycodone Hcl Immed Release 5 Mg Tablet PO 5 mg Q6H PRN Administration Pain, Moderate (Pain Scale 4-6 Pharmacy Consult 1 each 11/10/20 21:14 Consult Rx Vancomycin Dosing MISCELLANE DAILY PRN Consult order Potassium Chloride 20 meq 11/10/20 09:00 11/15/20 09:17 Potassium Chloride Er 20 Meq Tab.Er.Prt PO 20 meq DAILY [facility] Administration Sertraline HCl 200 mg 11/10/20 09:00 11/15/20 09:18 Sertraline Hcl 100 Mg Tablet PO 200 mg DAILY [facility] Administration Sodium Chloride 3 ml 11/10/20 00:00 11/15/20 09:13 0.9 % Sodium Chloride Flush 3 Ml Syringe IVFLUSH Not Given QSHIFT [facility] Spironolactone 50 mg 11/10/20 09:00 11/15/20 09:17 Spironolactone 25 Mg Tablet PO 50 mg DAILY [facility] Administration Protocol Trazodone HCl 100 mg 11/10/20 01:35 11/14/20 20:16 Trazodone Hcl 100 Mg Tablet PO 100 mg BEDTIME PRN Administration Sleep Vitamin D 50 mcg 11/13/20 15:15 11/15/20 09:18 Cholecalciferol (Vitamin D3) 25 Mcg Tablet PO 50 mcg DAILY [facility] Administration Labs CBC & Chem 7: 11/15/20 10:01 11/15/20 10:01 Microbiology Microbiology Results: Microbiology 11/09/20 19:57 Blood - Venous Blood Culture - Final Coag negative Staphylococcus 11/09/20 20:54 Blood - Venous Blood Culture - Final No growth after 5 days. Assessment and Plan (1) Pneumonia due to COVID-19 virus: Status: Acute Assessment and Plan: 65/ morbid obesity, hypertension, hyperlipidemia, diabetes, coronary artery disease, CHF, AFib on Eliquis, arthritis presented to the hospital with a chief complaint of shortness of breath/dry cough noted to have COVID-19 pneumonia. Patient also noted to be in mild respiratory distress-on CPAP briefly in the ER subsequently transition to high-flow oxygen. Admitted to the hospital for further management. Acute hypoxic respiratory failure secondary to COVID-19 -Remains very hypoxic and is on high flow and NRB -Continue Remdesevir for 5 days -Dexamethasone for total of 10 days AFib w/ RVR--converted to sinuson Amio continue Lopressor and Eliquis CHF: Patient currently appears euvolemic. Continue Bumex Hypertension/hyperlipidemia: Continue Imdur amlodipine and Lopressor Diabetes: continue Insulin sliding scale monitor blood glucose Obesity: Patient likely had MOISÉS continue CPAP at night outpatient sleep studies. DVT prophylaxis: Eliquis Code status: Full code
[2020-11-15 16:05] LABS: Glucose, Whole Blood 155 mg/dL (60-115)
[2020-11-15 19:39] LABS: Glucose, Whole Blood 236 mg/dL (60-115)
[2020-11-15] MEDS: traZODone HCL 100 MG TABLET PO (20:04)
[2020-11-15] MEDS: OLANZapine 7.5 MG TABLET 15 MG PO (20:04)
[2020-11-15] MEDS: Morphine Sulfate 4 MG/ML CARTRIDGE IVPUSH (20:05)
[2020-11-15] MEDS: cefTRIAXone sodium 1 GM in 0.9 % Sodium Chloride 50 ML IV (20:29)
[2020-11-16] VITALS (16 sets, daily range): BP systolic 123–162; BP diastolic 59–73; PULSE 71–90; RESP 18–22; TEMP 36–36.9; O2SAT 90–96
[2020-11-16] MEDS: Omeprazole 20 MG CAPSULE.DR PO (04:41)
[2020-11-16] MEDS: oxyCODONE HCl Immed Release 5 MG TABLET PO ×2 (04:41→23:03)
[2020-11-16 07:12] LABS: Glucose, Whole Blood 246 mg/dL (60-115)
[2020-11-16] MEDS: guaiFENesin 100 MG/5 ML LIQUID PO (07:46)
[2020-11-16] MEDS: Insulin Lispro 100 UNIT/ML 3 ML VIAL SUBCUT ×4 (07:46→21:01)
[2020-11-16] MEDS: Insulin Glargine,Hum.rec.anlog 100 UNIT/ML 10 ML VIAL 20 UNIT SUBCUT (07:46)
[2020-11-16] MEDS: Atorvastatin Calcium 80 MG TABLET PO (07:47)
[2020-11-16] MEDS: dexAMETHasone 6 MG TABLET PO (07:47)
[2020-11-16] MEDS: 0.9 % Sodium Chloride Flush 3 ML SYRINGE IVFLUSH ×2 (07:47→21:13)
[2020-11-16] MEDS: Bumetanide 1 MG TABLET 2 MG PO (07:47)
[2020-11-16] MEDS: Apixaban 5 MG TABLET PO ×2 (07:47→21:01)
[2020-11-16] MEDS: Ascorbic Acid 500 MG TABLET PO ×2 (07:47→21:01)
[2020-11-16] MEDS: Spironolactone 25 MG TABLET 50 MG PO (07:47)
[2020-11-16] MEDS: Cholecalciferol (Vitamin D3) 25 MCG TABLET 50 MCG PO (07:47)
[2020-11-16] MEDS: Potassium Chloride ER 20 MEQ TAB.ER.PRT PO (07:48)
[2020-11-16] MEDS: amLODIPine Besylate 5 MG TABLET PO (07:48)
[2020-11-16] MEDS: Metoprolol Tartrate 25 MG TABLET 75 MG PO (07:48)
[2020-11-16] MEDS: Isosorbide Mononitrate 60 MG TAB.ER.24H PO (07:48)
[2020-11-16] MEDS: Sertraline HCL 100 MG TABLET 200 MG PO (07:49)
--- NOTE | 2020-11-16 08:57 | PC.NURSE ---
SP02 88-92% on HFNC + NRB. desat to 70's when pt takes 02 off. frequent reminders to pt needed to keep 02 on. HR SR 70s-80s on tele. remains on amiodarone drip at 0.5 mg/min per protocol. pt unable to repo self, repo q 2 hours to maintain skin integrity. no issues overnight per previous RN. dtr Luz updated over the phone ~ 0850 on pt status.
[2020-11-16] MEDS: Amiodarone HCL 900 MG in 0.9 % Sodium Chloride 500 ML 17.27 MG IVCONT (10:10)
--- NOTE | 2020-11-16 10:30 | P.PNIM_ITS ---
Subjective Subjective Date of Service: 11/16/20 Interval History: Seen in f/u for covid related acute hypoxic resp failure. No new issues, she remains hypoxic, on NRB and high flow O2. She is sinus Review of Systems Gen: fever Resp: + sob, no cough CV: no chest, +HUMPHREYS, no leg edema GI: No n/v, no abd pain Neuro: No confusion Physical Exam Vital Signs: Vital Signs: Last Vital Signs Temp 96.8 F 11/16/20 07:05 Pulse 78 11/16/20 10:10 Resp 20 11/16/20 07:50 BP 123/61 11/16/20 10:10 Pulse Ox 92 11/16/20 07:05 Body Mass Index 53.2 Const: General: in distress mild and ill appearing Nutritional Appearance: obese Orientation/consciousness: patient oriented x3 Resp: Effort & Inspection: labored and tachypneic Auscultation: crackles (Occasional bilateral bases), no rales, rhonchi, wheezes and diminished lung sounds Cardio: Jugular venous distension: no JVD Rate: regular rate Rhythm: regular rhythm Heart sounds: S1 normal heart sound present, S2 normal heart sound present and Murmur heart sound present (Right Parasternal pansystolic) Peripheral pulses: Peripheral pulses 2+ throughout GI: Inspection: Yes normal to inspection Palpation (GI): Soft to palpation and nontender Auscultation: normal bowel sounds Skin: General skin exam: no rashes or lesions noted Neuro: General: patient oriented x3 and no focal motor deficits Extrem: General: Yes no calf tenderness and Yes pedal edema (2+) Objective Data Current Medications Generic Name Dose Route Start Last Admin Trade Name Ayushq PRN Reason Stop Dose Admin Acetaminophen 650 mg 11/09/20 23:12 11/10/20 21:42 Acetaminophen 325 Mg Tablet PO 650 mg Q6H PRN Administration Pain, Mild (Pain Scale 1-3) Albuterol Sulfate 2.5 mg 11/10/20 01:33 Albuterol Sulfate (0.083%) 2.5 Mg/3 Ml Vial.Neb INHALE Q4H PRN Shortness Of Breath Albuterol Sulfate 4 puff 11/10/20 01:33 11/14/20 11:55 Albuterol Sulfate 90 Mcg 8 Gm Inhaler INHALE 4 puff Q3H PRN Administration Shortness Of Breath Amlodipine Besylate 5 mg 11/10/20 09:00 11/16/20 07:48 Amlodipine Besylate 5 Mg Tablet PO 5 mg DAILY [facility] Administration Protocol Apixaban 5 mg 11/10/20 09:00 11/16/20 07:47 Apixaban 5 Mg Tablet PO 5 mg BID [facility] Administration Ascorbic Acid 500 mg 11/13/20 21:00 11/16/20 07:47 Ascorbic Acid 500 Mg Tablet PO 500 mg BID [facility] Administration Atorvastatin Calcium 80 mg 11/10/20 09:00 11/16/20 07:47 Atorvastatin Calcium 80 Mg Tablet PO 80 mg DAILY [facility] Administration Bumetanide 2 mg 11/15/20 09:00 11/16/20 07:47 Bumetanide 1 Mg Tablet PO 2 mg DAILY [facility] Administration Protocol Dexamethasone 6 mg 11/10/20 09:00 11/16/20 07:47 Dexamethasone 6 Mg Tablet PO 6 mg DAILY [facility] Administration Doxycycline Hyclate 100 mg 11/10/20 09:00 11/16/20 07:48 Doxycycline Hyclate 100 Mg Tablet PO 100 mg Q12H [facility] Administration Guaifenesin 5 ml 11/13/20 14:24 11/16/20 07:46 Guaifenesin 100 Mg/5 Ml Liquid PO 5 ml Q4H PRN Administration Cough Ceftriaxone Sodium 1 gm/ 50 mls @ 100 mls/hr 11/10/20 21:00 11/15/20 21:09 Sodium Chloride IV Infused Q24H [facility] Infusion Diltiazem HCl 125 mg/ Sodium 125 mls @ 0 mls/hr 11/15/20 07:45 11/15/20 12:44 Chloride IVCONT 0 mg/hr .Q0M [facility] 0 mls/hr Titration Protocol Per Protocol Amiodarone HCl 900 mg/ Sodium 518 mls @ 34.533 mls/hr 11/15/20 11:45 11/16/20 10:10 Chloride IVCONT 0.5 mg/min .Q15H1M [facility] 17.27 mls/hr Administration Protocol 1 MG/MIN Insulin Glargine 20 unit 11/12/20 09:00 11/16/20 07:46 Insulin Glargine,Hum.Rec.Anlog 100 Unit/Ml 10 Ml Vial SUBCUT 20 unit DAILY [facility] Administration Insulin Human Lispro 0 unit 11/10/20 07:30 11/16/20 07:46 Insulin Lispro 100 Unit/Ml 3 Ml Vial SUBCUT 4 unit QIDACHS [facility] Administration Protocol Isosorbide Mononitrate 60 mg 11/10/20 09:00 11/16/20 07:48 Isosorbide Mononitrate 60 Mg Tab.Er.24h PO 60 mg DAILY [facility] Administration Protocol Melatonin 3 mg 11/10/20 01:33 11/11/20 23:36 Melatonin 3 Mg Tablet PO 3 mg BEDTIME PRN Administration Sleep Metolazone 2.5 mg 11/10/20 01:33 Metolazone 2.5 Mg Tablet PO ONCE PRN Shortness Of Breath Metoprolol Tartrate 75 mg 11/10/20 09:00 11/16/20 07:48 Metoprolol Tartrate 25 Mg Tablet PO 75 mg DAILY [facility] Administration Protocol Olanzapine 15 mg 11/10/20 01:35 11/15/20 20:04 Olanzapine 7.5 Mg Tablet PO 15 mg BEDTIME [facility] Administration Omeprazole 20 mg 11/10/20 06:30 11/16/20 04:41 Omeprazole 20 Mg Capsule.Dr PO 20 mg DAILY@0630 [facility] Administration Oxycodone HCl 5 mg 11/11/20 12:51 11/16/20 04:41 Oxycodone Hcl Immed Release 5 Mg Tablet PO 5 mg Q6H PRN Administration Pain, Moderate (Pain Scale 4-6 Pharmacy Consult 1 each 11/10/20 21:14 Consult Rx Vancomycin Dosing MISCELLANE DAILY PRN Consult order Potassium Chloride 20 meq 11/10/20 09:00 11/16/20 07:48 Potassium Chloride Er 20 Meq Tab.Er.Prt PO 20 meq DAILY [facility] Administration Sertraline HCl 200 mg 11/10/20 09:00 11/16/20 07:49 Sertraline Hcl 100 Mg Tablet PO 200 mg DAILY [facility] Administration Sodium Chloride 3 ml 11/10/20 00:00 11/16/20 07:47 0.9 % Sodium Chloride Flush 3 Ml Syringe IVFLUSH 3 ml QSHIFT [facility] Administration Spironolactone 50 mg 11/10/20 09:00 11/16/20 07:47 Spironolactone 25 Mg Tablet PO 50 mg DAILY [facility] Administration Protocol Trazodone HCl 100 mg 11/10/20 01:35 11/15/20 20:04 Trazodone Hcl 100 Mg Tablet PO 100 mg BEDTIME PRN Administration Sleep Vitamin D 50 mcg 11/13/20 15:15 11/16/20 07:47 Cholecalciferol (Vitamin D3) 25 Mcg Tablet PO 50 mcg DAILY [facility] Administration Labs CBC & Chem 7: 11/15/20 10:01 11/15/20 10:01 Microbiology Microbiology Results: Microbiology 11/09/20 19:57 Blood - Venous Blood Culture - Final Coag negative Staphylococcus 11/09/20 20:54 Blood - Venous Blood Culture - Final No growth after 5 days. Assessment and Plan (1) Pneumonia due to COVID-19 virus: Status: Acute Assessment and Plan: 65/ morbid obesity, hypertension, hyperlipidemia, diabetes, coronary artery disease, CHF, AFib on Eliquis, arthritis presented to the hospital with a chief complaint of shortness of breath/dry cough noted to have COVID-19 pneumonia. Patient also noted to be in mild respiratory distress-on CPAP briefly in the ER subsequently transition to high-flow oxygen. Admitted to the hospital for further management. Acute hypoxic respiratory failure secondary to COVID-19 -Remains very hypoxic and is on high flow and NRB -wean as ruthie -Continue Remdesevir for 5 days -Dexamethasone for total of 10 days AFib w/ RVR -Continue Amiodarone loading continue Lopressor and Eliquis CHF: Patient currently appears euvolemic. Continue Bumex Hypertension/hyperlipidemia: Continue Imdur amlodipine and Lopressor Diabetes: continue Insulin sliding scale monitor blood glucose Obesity: Patient likely had MOISÉS continue CPAP at night outpatient sleep studies. DVT prophylaxis: Eliquis Code status: Full code
[2020-11-16 11:11] LABS: Glucose, Whole Blood 282 mg/dL (60-115)
--- NOTE | 2020-11-16 15:25 | MHC.CM.PN ---
CM received a call from pts daughter, Luz, this morning. Luz reported she was very worried because her mother is sick with COVID-19. She states she was unable to get an update from the pts nurse but she understands they are busy. HARDY explained there were no noted changes in the pts record and offered to contact the pts nurse for an update. Luz reported that would be unnecessary. She states she actually did speak to the pts nurse this morning but they also said there was no changes in her condition. CM took her number and informed her she would be called if there were any changes.
[2020-11-16 16:10] LABS: Glucose, Whole Blood 308 mg/dL (60-115)
[2020-11-16 19:54] LABS: Glucose, Whole Blood 357 mg/dL (60-115)
[2020-11-16] MEDS: cefTRIAXone sodium 1 GM in 0.9 % Sodium Chloride 50 ML IV (21:00)
[2020-11-16] MEDS: OLANZapine 7.5 MG TABLET 15 MG PO (21:01)
[2020-11-16] MEDS: Amiodarone HCL 200 MG TABLET PO (21:02)
[2020-11-16] MEDS: traZODone HCL 100 MG TABLET PO (23:04)
[2020-11-17] VITALS (16 sets, daily range): BP systolic 120–163; BP diastolic 61–75; PULSE 70–92; RESP 18–27; TEMP 36.1–37.7; O2SAT 84–96
[2020-11-17] MEDS: Omeprazole 20 MG CAPSULE.DR PO (06:13)
--- NOTE | 2020-11-17 06:21 | PC.NURSE ---
spoke with daughter hcp., and updated her . Nurse concern about amount of phone ajit her mother receved and how difficult is to mentain the sats while talking she lowered her mask , and how difficult time she hes to regain her numbers back .
[2020-11-17] MEDS: 0.9 % Sodium Chloride Flush 3 ML SYRINGE IVFLUSH ×3 (07:16→23:58)
[2020-11-17] MEDS: oxyCODONE HCl Immed Release 5 MG TABLET PO ×2 (07:16→13:26)
[2020-11-17 07:43] LABS: Glucose, Whole Blood 208 mg/dL (60-115)
[2020-11-17] MEDS: Insulin Lispro 100 UNIT/ML 3 ML VIAL SUBCUT ×4 (07:45→21:20)
[2020-11-17] MEDS: amLODIPine Besylate 5 MG TABLET PO (08:34)
[2020-11-17] MEDS: Sertraline HCL 100 MG TABLET 200 MG PO (08:34)
[2020-11-17] MEDS: Potassium Chloride ER 20 MEQ TAB.ER.PRT PO (08:34)
[2020-11-17] MEDS: Metoprolol Tartrate 25 MG TABLET 75 MG PO (08:34)
[2020-11-17] MEDS: Insulin Glargine,Hum.rec.anlog 100 UNIT/ML 10 ML VIAL 20 UNIT SUBCUT (08:34)
[2020-11-17] MEDS: Isosorbide Mononitrate 60 MG TAB.ER.24H PO (08:34)
[2020-11-17] MEDS: Spironolactone 25 MG TABLET 50 MG PO (08:35)
[2020-11-17] MEDS: Cholecalciferol (Vitamin D3) 25 MCG TABLET 50 MCG PO (08:35)
[2020-11-17] MEDS: Atorvastatin Calcium 80 MG TABLET PO (08:35)
[2020-11-17] MEDS: Apixaban 5 MG TABLET PO ×2 (08:35→21:20)
[2020-11-17] MEDS: Bumetanide 1 MG TABLET 2 MG PO (08:35)
[2020-11-17] MEDS: Ascorbic Acid 500 MG TABLET PO ×2 (08:35→21:20)
[2020-11-17] MEDS: Amiodarone HCL 200 MG TABLET PO ×2 (08:35→21:20)
[2020-11-17] MEDS: dexAMETHasone 6 MG TABLET PO (08:35)
--- NOTE | 2020-11-17 09:15 | MHC.CM.PN ---
Patient needs 02 at 55 liters high flow with FIO2 of 100% for COVID+. Patient is also on IC Ceftriaxone for +BC. Also on IV Cardizem gtt for Afib with RVR. Discharge plan is home with resumption of [facility] [facility] [employer] and [facility]. Patient might need transport home. CM will continue to follow patient for discharge needs.
--- NOTE | 2020-11-17 10:21 | P.PNIM_ITS ---
Subjective Subjective Date of Service: 11/17/20 Interval History: Seen in f/u for covid related acute hypoxic resp failure. No new issues, she remains hypoxic, on NRB and high flow O2 with O2 sat around 91 and becomes lower with minimal effort. She is sinus Review of Systems Gen: fever Resp: + sob, no cough CV: no chest, +HUMPHREYS, no leg edema GI: No n/v, no abd pain Neuro: No confusion Physical Exam Vital Signs: Vital Signs: Last Vital Signs Temp 97.2 F 11/17/20 08:00 Pulse 92 11/17/20 08:00 Resp 20 11/17/20 08:00 BP 163/67 H 11/17/20 08:00 Pulse Ox 91 L 11/17/20 08:00 Body Mass Index 53.2 Const: General: in distress mild and ill appearing Nutritional Appearance: obese Orientation/consciousness: patient oriented x3 Resp: Effort & Inspection: labored (mild) Auscultation: no rales, rhonchi and diminished lung sounds Cardio: Jugular venous distension: no JVD Rate: regular rate Rhythm: regular rhythm Heart sounds: S1 normal heart sound present, S2 normal heart sound present and Murmur heart sound present (Right Parasternal pansystolic) Peripheral pulses: Peripheral pulses 2+ throughout GI: Inspection: Yes normal to inspection Palpation (GI): Soft to palpation and nontender Auscultation: normal bowel sounds Back/Spine/Pelvis: Thoracic/Lumbar Spine: thoracic and lumbar spine normal to inspection Skin: General skin exam: no rashes or lesions noted Neuro: General: patient oriented x3 and no focal motor deficits Extrem: General: Yes pedal edema (2+) Objective Data Current Medications Generic Name Dose Route Start Last Admin Trade Name Freq PRN Reason Stop Dose Admin Acetaminophen 650 mg 11/09/20 23:12 11/10/20 21:42 Acetaminophen 325 Mg Tablet PO 650 mg Q6H PRN Administration Pain, Mild (Pain Scale 1-3) Albuterol Sulfate 4 puff 11/10/20 01:33 11/14/20 11:55 Albuterol Sulfate 90 Mcg 8 Gm Inhaler INHALE 4 puff Q3H PRN Administration Shortness Of Breath Amiodarone HCl 200 mg 11/16/20 21:00 11/17/20 08:35 Amiodarone Hcl 200 Mg Tablet PO 200 mg BID [facility] Administration Amlodipine Besylate 5 mg 11/10/20 09:00 11/17/20 08:34 Amlodipine Besylate 5 Mg Tablet PO 5 mg DAILY [facility] Administration Protocol Apixaban 5 mg 11/10/20 09:00 11/17/20 08:35 Apixaban 5 Mg Tablet PO 5 mg BID [facility] Administration Ascorbic Acid 500 mg 11/13/20 21:00 11/17/20 08:35 Ascorbic Acid 500 Mg Tablet PO 500 mg BID [facility] Administration Atorvastatin Calcium 80 mg 11/10/20 09:00 11/17/20 08:35 Atorvastatin Calcium 80 Mg Tablet PO 80 mg DAILY [facility] Administration Bumetanide 2 mg 11/15/20 09:00 11/17/20 08:35 Bumetanide 1 Mg Tablet PO 2 mg DAILY [facility] Administration Protocol Dexamethasone 6 mg 11/10/20 09:00 11/17/20 08:35 Dexamethasone 6 Mg Tablet PO 6 mg DAILY [facility] Administration Guaifenesin 5 ml 11/13/20 14:24 11/16/20 07:46 Guaifenesin 100 Mg/5 Ml Liquid PO 5 ml Q4H PRN Administration Cough Ceftriaxone Sodium 1 gm/ 50 mls @ 100 mls/hr 11/10/20 21:00 11/16/20 22:56 Sodium Chloride IV Infused Q24H [facility] Infusion Diltiazem HCl 125 mg/ Sodium 125 mls @ 0 mls/hr 11/15/20 07:45 11/15/20 12:44 Chloride IVCONT 0 mg/hr .Q0M [facility] 0 mls/hr Titration Protocol Per Protocol Insulin Glargine 20 unit 11/12/20 09:00 11/17/20 08:34 Insulin Glargine,Hum.Rec.Anlog 100 Unit/Ml 10 Ml Vial SUBCUT 20 unit DAILY [facility] Administration Insulin Human Lispro 0 unit 11/10/20 07:30 11/17/20 07:45 Insulin Lispro 100 Unit/Ml 3 Ml Vial SUBCUT 4 unit QIDACHS [facility] Administration Protocol Isosorbide Mononitrate 60 mg 11/10/20 09:00 11/17/20 08:34 Isosorbide Mononitrate 60 Mg Tab.Er.24h PO 60 mg DAILY [facility] Administration Protocol Melatonin 3 mg 11/10/20 01:33 11/11/20 23:36 Melatonin 3 Mg Tablet PO 3 mg BEDTIME PRN Administration Sleep Metolazone 2.5 mg 11/10/20 01:33 Metolazone 2.5 Mg Tablet PO ONCE PRN Shortness Of Breath Metoprolol Tartrate 75 mg 11/10/20 09:00 11/17/20 08:34 Metoprolol Tartrate 25 Mg Tablet PO 75 mg DAILY [facility] Administration Protocol Olanzapine 15 mg 11/10/20 01:35 11/16/20 21:01 Olanzapine 7.5 Mg Tablet PO 15 mg BEDTIME [facility] Administration Omeprazole 20 mg 11/10/20 06:30 11/17/20 06:13 Omeprazole 20 Mg Capsule. PO 20 mg DAILY@0630 [facility] Administration Oxycodone HCl 5 mg 11/11/20 12:51 11/17/20 07:16 Oxycodone Hcl Immed Release 5 Mg Tablet PO 5 mg Q6H PRN Administration Pain, Moderate (Pain Scale 4-6 Pharmacy Consult 1 each 11/10/20 21:14 Consult Rx Vancomycin Dosing MISCELLANE DAILY PRN Consult order Potassium Chloride 20 meq 11/10/20 09:00 11/17/20 08:34 Potassium Chloride Er 20 Meq Tab.Er.Prt PO 20 meq DAILY [facility] Administration Sertraline HCl 200 mg 11/10/20 09:00 11/17/20 08:34 Sertraline Hcl 100 Mg Tablet PO 200 mg DAILY [facility] Administration Sodium Chloride 3 ml 11/10/20 00:00 11/17/20 07:16 0.9 % Sodium Chloride Flush 3 Ml Syringe IVFLUSH 3 ml QSHIFT [facility] Administration Spironolactone 50 mg 11/10/20 09:00 11/17/20 08:35 Spironolactone 25 Mg Tablet PO 50 mg DAILY [facility] Administration Protocol Trazodone HCl 100 mg 11/10/20 01:35 11/16/20 23:04 Trazodone Hcl 100 Mg Tablet PO 100 mg BEDTIME PRN Administration Sleep Vitamin D 50 mcg 11/13/20 15:15 11/17/20 08:35 Cholecalciferol (Vitamin D3) 25 Mcg Tablet PO 50 mcg DAILY [facility] Administration Labs CBC & Chem 7: 11/15/20 10:01 11/15/20 10:01 Microbiology Microbiology Results: Microbiology 11/09/20 19:57 Blood - Venous Blood Culture - Final Coag negative Staphylococcus 02/21/21 20:54 Blood - Venous Blood Culture - Final No growth after 5 days. Assessment and Plan (1) Pneumonia due to COVID-19 virus: Status: Acute Assessment and Plan: 65/ morbid obesity, hypertension, hyperlipidemia, diabetes, coronary artery disease, CHF, AFib on Eliquis, arthritis presented to the hospital with a chief complaint of shortness of breath/dry cough noted to have COVID-19 pneumonia. Patient also noted to be in mild respiratory distress-on CPAP briefly in the ER subsequently transition to high-flow oxygen. Admitted to the hospital for further management. Acute hypoxic respiratory failure secondary to COVID-19 -Remains very hypoxic and is on high flow and NRB -wean as ruthie -Has completed 5 days of Remdesevir -Dexamethasone for total of 10 days, D8 AFib w/ RVR -Continue Amiodarone loading continue Lopressor and Eliquis CHF: Patient currently appears euvolemic. Continue Bumex Hypertension/hyperlipidemia: Continue Imdur amlodipine and Lopressor Diabetes: continue Insulin sliding scale monitor blood glucose Obesity: Patient likely had MOISÉS continue CPAP at night outpatient sleep studies. DVT prophylaxis: Eliquis Code status: Full code
[2020-11-17 11:49] LABS: Glucose, Whole Blood 256 mg/dL (60-115)
--- NOTE | 2020-11-17 14:08 | MHC.CLN ---
F/U PO INTAKE 50% DIET RX: 1500DM 2GM NA-APPROPRIATE NOTED FRAGILE SKIN MONITOR PO; IF DECLINE WILL START SUPPLEMENTS FOLLOWING
[2020-11-17 17:18] LABS: Glucose, Whole Blood 301 mg/dL (60-115)
[2020-11-17 20:36] LABS: Glucose, Whole Blood 306 mg/dL (60-115)
[2020-11-17] MEDS: OLANZapine 7.5 MG TABLET 15 MG PO (21:20)
[2020-11-18] VITALS (24 sets, daily range): BP systolic 91–141; BP diastolic 52–74; PULSE 72–99; RESP 16–28; TEMP 35.9–37.2; O2SAT 82–98
[2020-11-18] MEDS: Omeprazole 20 MG CAPSULE.DR PO (05:35)
[2020-11-18 07:45] LABS: Glucose, Whole Blood 207 mg/dL (60-115)
[2020-11-18] MEDS: Insulin Lispro 100 UNIT/ML 3 ML VIAL SUBCUT ×4 (08:16→23:41)
[2020-11-18] MEDS: Insulin Glargine,Hum.rec.anlog 100 UNIT/ML 10 ML VIAL 20 UNIT SUBCUT (08:17)
[2020-11-18] MEDS: Metoprolol Tartrate 25 MG TABLET 75 MG PO (08:19)
[2020-11-18] MEDS: Ascorbic Acid 500 MG TABLET PO ×2 (08:19→21:37)
[2020-11-18] MEDS: Isosorbide Mononitrate 60 MG TAB.ER.24H PO (08:19)
[2020-11-18] MEDS: Spironolactone 25 MG TABLET 50 MG PO (08:19)
[2020-11-18] MEDS: oxyCODONE HCl Immed Release 5 MG TABLET PO (08:19)
[2020-11-18] MEDS: dexAMETHasone 6 MG TABLET PO (08:20)
[2020-11-18] MEDS: amLODIPine Besylate 5 MG TABLET PO (08:20)
[2020-11-18] MEDS: Bumetanide 1 MG TABLET 2 MG PO (08:20)
[2020-11-18] MEDS: Potassium Chloride ER 20 MEQ TAB.ER.PRT PO (08:20)
[2020-11-18] MEDS: Cholecalciferol (Vitamin D3) 25 MCG TABLET 50 MCG PO (08:20)
[2020-11-18] MEDS: Sertraline HCL 100 MG TABLET 200 MG PO (08:20)
[2020-11-18] MEDS: Apixaban 5 MG TABLET PO ×2 (08:20→21:37)
[2020-11-18] MEDS: Amiodarone HCL 200 MG TABLET PO (08:20)
[2020-11-18] MEDS: Atorvastatin Calcium 80 MG TABLET PO (08:21)
[2020-11-18] MEDS: 0.9 % Sodium Chloride Flush 3 ML SYRINGE IVFLUSH ×3 (08:21→23:29)
--- NOTE | 2020-11-18 09:08 | HO.PM.IMPN ---
Subjective Subjective Date of Service: 11/18/20 Interval History: Seen in f/u for covid related acute hypoxic resp failure. There is persistent hypoxia with oxgyen saturatation just barely around 83% o on NRB and high flow O2 at maximum. She is very anxious Review of Systems Gen: fever Resp: + sob, no cough CV: no chest, +HUMPHREYS, no leg edema GI: No n/v, no abd pain Neuro: No confusion Physical Exam Vital Signs: Vital Signs: Last Vital Signs Temp 98.2 F 11/18/20 07:33 Pulse 94 11/18/20 07:33 Resp 23 H 11/18/20 07:55 BP 121/62 11/18/20 07:33 Pulse Ox 83 L 11/18/20 07:35 Body Mass Index 53.2 Const: General: cooperative, in distress mild and ill appearing Nutritional Appearance: obese Orientation/consciousness: patient oriented x3 Eyes: Sclerae: sclerae normal Chest: Chest palpation & inspection: normal palpation of entire chest wall Resp: Effort & Inspection: normal respiratory effort, labored (mild) and tachypneic Auscultation: crackles (Occasional bilateral bases), no rales, rhonchi, wheezes and diminished lung sounds Cardio: Jugular venous distension: no JVD Palpation: normal PMI Rate: regular rate Rhythm: regular rhythm Heart sounds: S1 normal heart sound present, S2 normal heart sound present and Murmur heart sound present (Right Parasternal pansystolic) Peripheral pulses: Peripheral pulses 2+ throughout GI: Inspection: Yes normal to inspection Palpation (GI): Soft to palpation and nontender Auscultation: normal bowel sounds Skin: General skin exam: no rashes or lesions noted Neuro: General: patient oriented x3 and no focal motor deficits Extrem: General: Yes no calf tenderness and Yes pedal edema (2+) Objective Data Current Medications Generic Name Dose Route Start Last Admin Trade Name Freq PRN Reason Stop Dose Admin Acetaminophen 650 mg 11/09/20 23:12 11/10/20 21:42 Acetaminophen 325 Mg Tablet PO 650 mg Q6H PRN Administration Pain, Mild (Pain Scale 1-3) Albuterol Sulfate 4 puff 11/10/20 01:33 11/14/20 11:55 Albuterol Sulfate 90 Mcg 8 Gm Inhaler INHALE 4 puff Q3H PRN Administration Shortness Of Breath Amiodarone HCl 200 mg 11/16/20 21:00 11/18/20 08:20 Amiodarone Hcl 200 Mg Tablet PO 200 mg BID ROCKY Administration Amlodipine Besylate 5 mg 11/10/20 09:00 11/18/20 08:20 Amlodipine Besylate 5 Mg Tablet PO 5 mg DAILY ROCKY Administration Protocol Apixaban 5 mg 11/10/20 09:00 11/18/20 08:20 Apixaban 5 Mg Tablet PO 5 mg BID ROCKY Administration Ascorbic Acid 500 mg 11/13/20 21:00 11/18/20 08:19 Ascorbic Acid 500 Mg Tablet PO 500 mg BID ROCKY Administration Atorvastatin Calcium 80 mg 11/10/20 09:00 11/18/20 08:21 Atorvastatin Calcium 80 Mg Tablet PO 80 mg DAILY ROCKY Administration Bumetanide 2 mg 11/15/20 09:00 11/18/20 08:20 Bumetanide 1 Mg Tablet PO 2 mg DAILY ROCKY Administration Protocol Dexamethasone 6 mg 11/10/20 09:00 11/18/20 08:20 Dexamethasone 6 Mg Tablet PO 6 mg DAILY ROCKY Administration Guaifenesin 5 ml 11/13/20 14:24 11/16/20 07:46 Guaifenesin 100 Mg/5 Ml Liquid PO 5 ml Q4H PRN Administration Cough Insulin Glargine 20 unit 11/12/20 09:00 11/18/20 08:17 Insulin Glargine,Hum.Rec.Anlog 100 Unit/Ml 10 Ml Vial SUBCUT 20 unit DAILY ROCKY Administration Insulin Human Lispro 0 unit 11/10/20 07:30 11/18/20 08:16 Insulin Lispro 100 Unit/Ml 3 Ml Vial SUBCUT 4 unit QIDACHS ROCKY Administration Protocol Isosorbide Mononitrate 60 mg 11/10/20 09:00 11/18/20 08:19 Isosorbide Mononitrate 60 Mg Tab.Er.24h PO 60 mg DAILY ROCKY Administration Protocol Melatonin 3 mg 11/10/20 01:33 11/11/20 23:36 Melatonin 3 Mg Tablet PO 3 mg BEDTIME PRN Administration Sleep Metolazone 2.5 mg 11/10/20 01:33 Metolazone 2.5 Mg Tablet PO ONCE PRN Shortness Of Breath Metoprolol Tartrate 75 mg 11/10/20 09:00 11/18/20 08:19 Metoprolol Tartrate 25 Mg Tablet PO 75 mg DAILY ROCKY Administration Protocol Olanzapine 15 mg 11/10/20 01:35 11/17/20 21:20 Olanzapine 7.5 Mg Tablet PO 15 mg BEDTIME ROCKY Administration Omeprazole 20 mg 11/10/20 06:30 11/18/20 05:35 Omeprazole 20 Mg Capsule.Dr PO 20 mg DAILY@0630 ROCKY Administration Oxycodone HCl 5 mg 11/11/20 12:51 11/18/20 08:19 Oxycodone Hcl Immed Release 5 Mg Tablet PO 5 mg Q6H PRN Administration Pain, Moderate (Pain Scale 4-6 Potassium Chloride 20 meq 11/10/20 09:00 11/18/20 08:20 Potassium Chloride Er 20 Meq Tab.Er.Prt PO 20 meq DAILY ROCKY Administration Sertraline HCl 200 mg 11/10/20 09:00 11/18/20 08:20 Sertraline Hcl 100 Mg Tablet PO 200 mg DAILY ROCKY Administration Sodium Chloride 3 ml 11/10/20 00:00 11/18/20 08:21 0.9 % Sodium Chloride Flush 3 Ml Syringe IVFLUSH 3 ml QSHIFT ROCKY Administration Spironolactone 50 mg 11/10/20 09:00 11/18/20 08:19 Spironolactone 25 Mg Tablet PO 50 mg DAILY [facility] Administration Protocol Trazodone HCl 100 mg 11/10/20 01:35 11/16/20 23:04 Trazodone Hcl 100 Mg Tablet PO 100 mg BEDTIME PRN Administration Sleep Vitamin D 50 mcg 11/13/20 15:15 11/18/20 08:20 Cholecalciferol (Vitamin D3) 25 Mcg Tablet PO 50 mcg DAILY ROCKY Administration Labs CBC & Chem 7: 11/15/20 10:01 11/15/20 10:01 Microbiology Microbiology Results: Microbiology 11/09/20 19:57 Blood - Venous Blood Culture - Final Coag negative Staphylococcus 11/09/20 20:54 Blood - Venous Blood Culture - Final No growth after 5 days. Assessment and Plan (1) Pneumonia due to COVID-19 virus: Status: Acute Assessment and Plan: 65/ morbid obesity, hypertension, hyperlipidemia, diabetes, coronary artery disease, CHF, AFib on Eliquis, arthritis presented to the hospital with a chief complaint of shortness of breath/dry cough noted to have COVID-19 pneumonia. Patient also noted to be in mild respiratory distress-on CPAP briefly in the ER subsequently transition to high-flow oxygen. Admitted to the hospital for further management. Acute hypoxic respiratory failure secondary to COVID-19 -Remains very hypoxic and is on high flow and NRB at maximum -She has completed therapy with Plasma, Remdesevir and Dexamethasone. -Hypoventilation is likely huge contributory factor to slow recovery -Get an ABG and CXR -ICU consult AFib w/ RVR--She is sinus rythm -Has been loaded with IV Amiodarone, continue Amio at 200 bid continue Lopressor and Eliquis CHF: Patient currently appears euvolemic. Continue Bumex Hypertension Continue Imdur amlodipine and Lopressor Diabetes: POC 207 -Continue Lantus at 20 -continue SSI -Monitor glucose Obesity: Patient likely had MOISÉS continue CPAP at night outpatient sleep studies. DVT prophylaxis: Eliquis Code status: Full code
[2020-11-18 09:22] LABS: Pt Ventilation O2% 100%
[2020-11-18 09:29] LABS: ABG PCO2 41 mmHg (32-45); PO2 ABG 53 mmHg (83-108); pH ABG 7.38 (7.35-7.45)
[2020-11-18 09:30] LABS: Base Excess ABG -0.6; HCO3 ABG 24 mmol/L (22-26)
--- NOTE | 2020-11-18 10:27 | PC.NURSE ---
Patient's 02 82-86% on 60L and nonrebreather. Patient c/o SOB. Repositioned to left side, MD at bedside to evaluate patient. ABGS ordered and chest x ray. Patient continuously removing nonrebreather and high flow. Educated on importance of keeping [address] Respiratory at bedside, Bipap on at this time, 02 91% while on bipap. awaiting possible medical insurance clerk consult.
[2020-11-18] MEDS: propofoL 200 MG/20 ML VIAL 50 MG IVPUSH ×2 (12:40→12:45)
[2020-11-18] MEDS: Rocuronium Bromide 50 MG/5 ML VIAL 60 MG IVPUSH (12:45)
[2020-11-18] MEDS: propofoL 1,000 MG/100 ML VIAL 22.45 MG IVCONT ×2 (13:00→21:37)
[2020-11-18 13:35] LABS: Glucose, Whole Blood 304 mg/dL (60-115)
--- NOTE | 2020-11-18 14:43 | W.PM.CCHP ---
Procedures Date of Service Date of Service: 11/18/20 Intubation Intubation Comments: Progressive hypoxic respiratory failure despite maximum high-flow oxygen and 100% FiO2 Excellent visualization of the vocal cords with easy intubation using 8. Endotracheal tube with glide scope and good bilateral breath sounds and excellent end-tidal CO2 response and good placement above dee dee on chest x-ray without barotrauma Consent for Procedure: Elective - informed consent obtained Time out performed: Yes Sedative: propofol Paralytic: rocuronium Mg given: 60 Laryngoscope: fiber optic video scope ET tube uncuffed: No Tube secured depth (cm): 26 Tube secured location: lips Tube placement confirmation: visualized tube passing through cords, equal breath sounds bilaterally, no breath sounds over epigastrium and confirmation by capnometry Patient tolerated procedure: well and no complications Intubation complications: none
--- NOTE | 2020-11-18 14:45 | W.PM.CCHP ---
Procedures Date of Service Date of Service: 11/18/20 Central Line Placement Left IJ: Central Line Comments: Poor IV peripheral access plus cardiac history with diastolic CHF and paroxysmal atrial fibrillation so therefore after sterile preparation and draping utilizing ultrasound guidance gained easy entry to the left internal jugular vein passing retrograde with Seldinger technique a J tipped guidewire to the right atrium over which a 20 centimetre triple-lumen catheter was placed in the right atrium without complication Chest x-ray confirms presence in the right atrium and no evidence of pneumothorax Consent for Procedure: Emergent-no informed consent obtained Time out performed: Yes Sterile Technique Used: Yes Patient placed on monitor/pulse ox: Yes prep: mask, gown and gloves Central line prep: Chlorhexidine scrub Ultrasound used for placement: Yes Central line lumen inserted: triple Post procedure: sutured in place, good blood return, all ports aspirated, flushed, capped and sterile dressing applied Post procedure x-ray: tip of catheter in good position and no pneumothorax seen Patient tolerated procedure: well and no complications Complications: none
--- NOTE | 2020-11-18 14:47 | W.PM.CCCN ---
History of Present Illness Data of Consult Service Date: 11/18/20 Requesting physician: Osman Wong Primary Care Provider: Unknown Physician HPI Reason for consult: 65-year-old type 2 diabetic hypertensive with ischemic heart disease and ch 65-year-old morbidly obese type 2 diabetic and hypertensive with chronic diastolic CHF and obstructive sleep apnea and obesity/hypoventilation presents with acute up hypoxemic respiratory failure from COVID-19 pneumonitis/ARDS and failing on maximum noninvasive high-flow and non-rebreather oxygen replacement with overwhelming bilateral lung involvement Brought down for emergent intubation which was explained in advance to the patient and despite Eliquis had easy placement of central venous pressure line via left internal jugular vein and awaiting trans do Timmons for pressure PMFSH Past Medical History Medical History CAD (coronary artery disease) CHF (congestive heart failure) Chronic heart failure with preserved ejection fraction (HFpEF) Chronic pancreatitis COPD (chronic obstructive pulmonary disease) COPD (chronic obstructive pulmonary disease) Degenerative arthritis of knee, bilateral Diverticulosis Dysuria Essential hypertension Hyperlipidemia LDL goal <70 Hypertensive heart disease Memory loss Morbid obesity due to excess calories Pulmonary embolism Respiratory failure with hypoxia and hypercapnia Right heart failure (secondary to left heart failure) SVT (supraventricular tachycardia) 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 Maternal Grandmother Diabetes Maternal Uncle Diabetes Maternal Aunt Diabetes Surgical History Surgical History Hx of cardiac catheterization Social History Social History Household Members: Family Housing: Apartment Alcohol intake: never Smoking Status: Never smoker Second Hand Smoke Exposure: No Advance Directives Date on File: 11/30/19 service: No Current occupational status: disabled Meds Allergies Allergy/AdvReac Type Severity Reaction Status Date / Time nitrofurantoin Allergy Intermediate SWELLING Verified 10/17/20 11:23 [From MACROBID] azithromycin [Azithromycin] Allergy Mild SWELLING Verified 10/17/20 11:23 Zithromax Allergy Unknown Swelling Uncoded 10/17/20 11:23 Active Medications: Current Medications Generic Name Dose Route Start Last Admin Trade Name Ayushq PRN Reason Stop Dose Admin Acetaminophen 650 mg 11/09/20 23:12 11/10/20 21:42 Acetaminophen 325 Mg Tablet PO 650 mg Q6H PRN Administration Pain, Mild (Pain Scale 1-3) Amiodarone HCl 200 mg 11/19/20 09:00 Amiodarone Hcl 200 Mg Tablet PO DAILY ROCKY Apixaban 5 mg 11/10/20 09:00 11/18/20 08:20 Apixaban 5 Mg Tablet PO 5 mg BID ROCKY Administration Ascorbic Acid 500 mg 11/13/20 21:00 11/18/20 08:19 Ascorbic Acid 500 Mg Tablet PO 500 mg BID ROCKY Administration Atorvastatin Calcium 80 mg 11/10/20 09:00 11/18/20 08:21 Atorvastatin Calcium 80 Mg Tablet PO 80 mg DAILY ROCKY Administration Dexamethasone 6 mg 11/10/20 09:00 11/18/20 08:20 Dexamethasone 6 Mg Tablet PO 6 mg DAILY ROCYK Administration Propofol 1,000 mg in 100 mls @ 0 mls/hr 11/18/20 14:45 Diprivan IVCONT .Q0M [facility] Protocol Per Protocol Insulin Glargine 20 unit 11/12/20 09:00 11/18/20 08:17 Insulin Glargine,Hum.Rec.Anlog 100 Unit/Ml 10 Ml Vial SUBCUT 20 unit DAILY ROCKY Administration Insulin Human Lispro 0 unit 11/10/20 07:30 11/18/20 12:14 Insulin Lispro 100 Unit/Ml 3 Ml Vial SUBCUT 8 unit QIDACHS [facility] Administration Protocol Melatonin 3 mg 11/10/20 01:33 11/11/20 23:36 Melatonin 3 Mg Tablet PO 3 mg BEDTIME PRN Administration Sleep Metoprolol Tartrate 75 mg 11/10/20 09:00 11/18/20 08:19 Metoprolol Tartrate 25 Mg Tablet PO 75 mg DAILY ROCKY Administration Protocol Omeprazole 20 mg 11/10/20 06:30 11/18/20 05:35 Omeprazole 20 Mg Capsule.Dr PO 20 mg DAILY@0630 ROCKY Administration Propofol 50 mg 11/18/20 14:34 Propofol 200 Mg/20 Ml Vial IVPUSH Q15M PRN anxiety/restlessness Sodium Chloride 3 ml 11/10/20 00:00 11/18/20 08:21 0.9 % Sodium Chloride Flush 3 Ml Syringe IVFLUSH 3 ml QSHIFT [facility] Administration Vitamin D 50 mcg 11/13/20 15:15 11/18/20 08:20 Cholecalciferol (Vitamin D3) 25 Mcg Tablet PO 50 mcg DAILY ROCKY Administration Home Medications Medication Instructions Recorded Confirmed Last Taken Type Eliquis 5 mg PO BID 07/22/20 11/10/20 Unknown History Flovent HFA 1 puff INHALATION BID 07/22/20 11/10/20 Unknown History Incruse Ellipta 1 inh INHALATION DAILY 07/22/20 11/10/20 Unknown History acetaminophen 650 mg PO Q8H PRN 07/22/20 11/10/20 Unknown History albuterol sulfate 2.5 mg INHALATION Q4H PRN 07/22/20 11/10/20 Unknown History amlodipine [Norvasc] 5 mg PO DAILY 07/22/20 11/10/20 Unknown History atorvastatin 80 mg PO DAILY 07/22/20 11/10/20 Unknown History melatonin 3 mg PO BEDTIME PRN 07/22/20 11/10/20 Unknown History metoprolol tartrate 75 mg PO BID 07/22/20 11/10/20 Unknown History olanzapine [Zyprexa] 15 mg PO BEDTIME 07/22/20 11/10/20 Unknown History pantoprazole [Protonix] 20 mg PO DAILY 07/22/20 11/10/20 Unknown History potassium chloride [Klor-Con M20] 20 meq PO DAILY 07/22/20 11/10/20 Unknown History sertraline 200 mg PO DAILY 07/22/20 11/10/20 Unknown History spironolactone 50 mg PO DAILY 07/22/20 11/10/20 Unknown History acetazolamide 250 mg tablet 250 mg PO BID tab 10/17/20 11/10/20 Unknown History bumetanide 2 mg tablet 2 mg PO DAILY tab 10/17/20 11/10/20 Unknown History Physical Exam Vital Signs: Vital Signs: Last Vital Signs Temp 99.0 F 11/18/20 14:00 Pulse 87 11/18/20 14:00 Resp 16 11/18/20 14:00 BP 96/52 L 11/18/20 14:00 Pulse Ox 92 11/18/20 14:00 Body Mass Index 53.2 Patient was alert and understanding of Azeri and are explanation and was oriented x3 and nonfocal neurologically Cardiac the intake and output equal no evidence of edema no apparent neck vein distension no resting gallop Chest with markedly diminished bilateral breath sounds and expiratory wheeze with significant diaphragmatic effort and tachypnea with mild accessory muscle use Abdomen obese no palpable organomegaly Results Labs CBC & Chem 7: 11/15/20 10:01 11/15/20 10:01 Microbiology Microbiology Results: Microbiology 11/09/20 19:57 Blood - Venous Blood Culture - Final Coag negative Staphylococcus 11/09/20 20:54 Blood - Venous Blood Culture - Final No growth after 5 days. Assessment and Plan (1) Pneumonia due to 2019-nCoV: Problem details: She has COVID She has oxygen dependency and rather unremarkable liver and kidney tests Status: Acute (2) Hypoxia: Status: Acute (3) Pneumonia due to COVID-19 virus: Status: Acute (4) Type 2 diabetes mellitus with chronic kidney disease: Qualifiers: Diabetes mellitus shelter insulin use: with terminal superintendent use Chronic kidney disease stage: stage 3 (moderate) Chronic kidney disease stage 3 subtype: stage 3b (GFR 30-44) Qualified Code(s): E11.21 - Type 2 diabetes mellitus with diabetic nephropathy; N18.32 - Chronic kidney disease, stage 3b; Z79.4 - terminal operator (current) use of insulin Status: Acute (5) Chronic heart failure with preserved ejection fraction (HFpEF): Status: Acute (6) Right heart failure (secondary to left heart failure): Status: Acute (7) Respiratory failure with hypoxia and hypercapnia: Qualifiers: Chronicity: chronic Qualified Code(s): J96.11 - Chronic respiratory failure with hypoxia; J96.12 - Chronic respiratory failure with hypercapnia Status: Acute (8) Paroxysmal atrial fibrillation: Status: Acute (9) CAD (coronary artery disease): Qualifiers: Coronary Disease-Associated Artery/Lesion type: unspecified vessel or lesion type Associated angina: angina presence unspecified Problem details: KAREN to LCx for ACS,10/02. Status: Acute (10) Mitral regurgitation: Status: Acute (11) MOISÉS (obstructive sleep apnea): Status: Acute (12) Morbid obesity due to excess calories: Status: Acute (13) Type 2 diabetes mellitus with hyperglycemia, with long-term current use of insulin: Status: Acute (14) Type 2 diabetes mellitus with diabetic polyneuropathy: Qualifiers: Diabetes mellitus terminal superintendent insulin use: with terminal superintendent use Qualified Code(s): E11.42 - Type 2 diabetes mellitus with diabetic polyneuropathy; Z79.4 - custodial (current) use of insulin Status: Acute (15) Degenerative arthritis of knee, bilateral: Status: Acute The plan therefore was intubating the patient which was accomplished placement of central line for monitoring intravascular volume and discontinuing most oral medicines while she is on propofol because these were all psychiatric medicines and will continue DVT prophylaxis as well as dexamethasone
[2020-11-18] MEDS: propofoL 1,000 MG/100 ML VIAL 31.43 MG IVCONT ×2 (15:27→18:21)
[2020-11-18 15:48] LABS: HCO3 VBG 28 mmol/L; PCO2 VBG 49 mmHg; PO2 VBG 52 mmHg; pH VBG 7.35 (7.32-7.43)
[2020-11-18 15:51] LABS: Basophils Percent Auto 0.1 % (0-2); Eosinophils Percent Auto 0.2 % (0-4); Hematocrit 38.6 % (37-47); Hemoglobin 12.4 g/dl (12.0-16.0); Imm Gran Abs Auto 0.23 X10*3/uL (0.00-0.03); Imm Gran Pct Auto 1.9 % (0.0-0.4); Lymphocytes Absolute Auto 0.3 X10*3/uL (1.2-4.9); Lymphocytes Percent Auto 2.3 % (20-40); MANUAL DIFF FLAG SCAN; Mean Corpuscular HGB Conc 32.1 g/dl (31.0-35.0); Mean Corpuscular Hemoglobin 25.7 pg (27.0-33.0); Mean Corpuscular Volume 79.9 fL (80-98); Mean Platelet Volume 9.5 fL (9.4-12.3); Monocytes Absolute Auto 0.2 X10*3/uL (0.1-1.2); Neutrophils Absolute Auto 11.1 X10*3/uL (2.0-8.3); Neutrophils Percent Auto 93.5 % (45-73); Platelet Count 149 X10*3/uL (160-400); Red Blood Count 4.83 X10*6/uL (4.20-5.50); Red Cell Distribution Width 16.4 % (11.0-16.0); SCAN SMEAR FLAG 1; White Blood Count 11.8 X10*3/uL (4.8-10.8)
[2020-11-18 16:11] LABS: Glucose, Whole Blood 267 mg/dL (60-115)
[2020-11-18 16:12] LABS: SLIDE REVIEW VERIFIED
[2020-11-18 16:16] LABS: D Dimer 4295 NG/ML
[2020-11-18 16:22] LABS: Glucose Random 308 mg/dL (60-115)
[2020-11-18 16:33] LABS: Anion Gap 18 (12-20); Carbon Dioxide 25 mmol/L (22-29); Chloride 97 mmol/L (96-108); Potassium 5.7 mmol/L (3.3-5.1); Sodium 134 mmol/L (135-145)
[2020-11-18 16:34] LABS: Alanine Aminotransferase 23 U/L (0-31); Albumin Level 2.9 g/dL (3.5-5.0); Alkaline Phosphatase 140 U/L (39-117); Aspartate Amino Transferase 45 U/L (5-31); Bilirubin Total 1.3 mg/dL (0.0-1.0); Blood Urea Nitrogen 70 mg/dL (9-16); C Reactive Protein 14.24 mg/dL (< or = 0.50); Calcium 8.6 mg/dL (8.4-10.2); Creatinine Clr Calc Pharmacy 61.4; Estimated Glomerular Filt Rate 39; Lactate Dehydrogenase 599 U/L (122-220); Magnesium 2.3 mg/dL (1.6-2.6); Phosphorus 4.3 mg/dL (2.7-4.5); Total Protein 6.8 g/dL (6.5-8.0)
[2020-11-18 16:41] LABS: Procalcitonin 0.31 ng/mL
[2020-11-18] MEDS: Furosemide 20 MG/2 ML VIAL IVPUSH (17:01)
--- NOTE | 2020-11-18 17:25 | PC.NURSE ---
[place] arrived [place] at 1245 [place] [facility] [place] patient on Bipap support, o2 86-89%. Intubated with 100mg Propofol & 60mg Rocuronium at 1300. ETT #8 24cm @ lip, vent settings AC 16/360/10/100%. Chest XRay obtained. Started on propofol gtt for sedation. Afebrile - pupils 3mm, PERRLA. Positive cough & gag, positive pain response. Sinus, HR 70's, no ectopy. On EliquiS 5mg bid. CVP reading 12-13 - Dr Hutton notified and Lasix 20mg IVP ordered and administered. L IJ TLC placed by MD- confirmed by XRay. SBP 100-110's. LS dim bilateral bases, moderate oral and inline white/clear secretions. Abdomen large, obese, positive bowel sounds - OGT placed - placement auscultated, XRay confirmed. Started on Glucerna tube feeds & 120cc water flushes q4hr. POC 267 - 6units Humalog administered. Last BM /. Temp sensing gates placed - urine output 40cc/hr pale yellow prior to lasix administration. Multiple skin integrity concerns: stage II bilateral buttocks, stage II middle coccyx, stage II right upper thigh, skin tear right upper anterior chest - pictures obtained and wounds charted per protocol. Air loss attachment in place, barrier cream/zinc cream applied, Prevlon repositioning system in place, repo q2hr. Patient bathed, family updated. Will continue to monitor.
--- NOTE | 2020-11-18 17:33 | W.MHC.ACPN ---
Advanced Care Planning Note Advanced Care Planning Note Discussed with: patient and family member(s) Time spent (in minutes): 20 Narrative: In light patient progressive hypoxia due to covid 19 with underlying DM, hypoventilation, MOISÉS and heart failure. I had multiple conversation with the patient who was lucid at that time and discussed treatment options and goals of care, she understood options to be limited and that next level of care might include ICU level of care and mechanical ventilation, she was agreeable to this plan but wanted to confirm with her daughter Luz Carr, whom I also spoke over the phone with several and had face time conversation in the presence of her mother and other family. In the end all were in agreement to transfer to ICU and if needed mechanical ventilation. They understood this to be a challenging situation and that recovery is not guaranteed. Agregate time throughout the day 20 minutes discussing goals of care Problems Discussed (1) Pneumonia due to 2019-nCoV: (2) Hypoxia: (3) Pneumonia due to COVID-19 virus: (4) Type 2 diabetes mellitus with chronic kidney disease: (5) Chronic heart failure with preserved ejection fraction (HFpEF): (6) Right heart failure (secondary to left heart failure): (7) Respiratory failure with hypoxia and hypercapnia: (8) Paroxysmal atrial fibrillation: (9) CAD (coronary artery disease): (10) Mitral regurgitation: (11) MOISÉS (obstructive sleep apnea): (12) Morbid obesity due to excess calories: (13) Type 2 diabetes mellitus with hyperglycemia, with long-term current use of insulin: (14) Type 2 diabetes mellitus with diabetic polyneuropathy: (15) Degenerative arthritis of knee, bilateral:
[2020-11-18 18:02] LABS: Glucose Random 309 mg/dL (60-115)
[2020-11-18] MEDS: Chlorhexidine Gluc Oral Rinse 15 ML MOUTHWASH BUCCAL (21:36)
[2020-11-18] MEDS: Nystatin Powder 15 GM BOTTLE 1 APPL TOPICAL (21:36)
--- NOTE | 2020-11-18 22:27 | PC.NURSE ---
[id number] Daughter, Luz, updated by nursing and PA this shift. Propofol titrated down as tolerated. Fio2 titrated down to 70%. UOP approx 100 cc/hr. No BM. Tolerating TF at rate of 40 cc/hr. Stage 2's: bilateral buttocks, right inner thigh, coccyx. Fungal rash under breasts, abdominal, and groin folds. Nystatin powder applied. Macerated groin/buttocks. Barrier wipes/cream, prevalon, airloss, repo side to side q2h.
[2020-11-19] VITALS (34 sets, daily range): BP systolic 100–146; BP diastolic 50–66; PULSE 70–95; RESP 16–20; TEMP 36.2–37.2; O2SAT 91–96; BMI 53.2
[2020-11-19 00:04] LABS: Glucose, Whole Blood 336 mg/dL (60-115)
[2020-11-19] MEDS: propofoL 1,000 MG/100 ML VIAL 22.45 MG IVCONT ×5 (01:51→17:51)
--- NOTE | 2020-11-19 04:33 | PC.NURSE ---
CARE ASSUMED 23:15...REMAINS TUBED/VENTED...VCV MODE..SYNCHRONOUS ON AC SETTINGS WITH PROPOFOL 25 MCG/KG/MIN...WEAKLY MOVES FEET SPONTANEOUSLY BUT NOT TO COMMAND...FIO2 WEANED TO 60% WITH SAO2 91-92%...BP STABLE...CVP 6-8..POSADAS YELLOW URINE...NSR..NO ECTOPY..TUBE FEEDS GLUCERNA 50 CC/HR & Q4H H20 120ML BOLUSES TOLERATED...POSADAS YELLOW URINE
[2020-11-19] MEDS: Insulin Lispro 100 UNIT/ML 3 ML VIAL SUBCUT (05:14)
[2020-11-19 05:45] LABS: Base Excess VBG 0.3 mmol/L; HCO3 VBG 25 mmol/L; PCO2 VBG 42 mmHg; PO2 VBG 57 mmHg; pH VBG 7.38 (7.32-7.43)
[2020-11-19 05:59] LABS: Glucose, Whole Blood 342 mg/dL (60-115)
[2020-11-19 05:59] LABS: Basophils Percent Auto 0.1 % (0-2); Eosinophils Percent Auto 0.3 % (0-4); Hematocrit 36.7 % (37-47); Hemoglobin 11.8 g/dl (12.0-16.0); Lymphocytes Absolute Auto 0.6 X10*3/uL (1.2-4.9); Lymphocytes Percent Auto 5.5 % (20-40); MANUAL DIFF FLAG SCAN; Mean Corpuscular HGB Conc 32.2 g/dl (31.0-35.0); Mean Corpuscular Hemoglobin 25.7 pg (27.0-33.0); Mean Platelet Volume 9.9 fL (9.4-12.3); Monocytes Absolute Auto 0.3 X10*3/uL (0.1-1.2); Monocytes Percent Auto 2.9 % (2-11); Neutrophils Percent Auto 89.2 % (45-73); Platelet Count 141 X10*3/uL (160-400); Red Blood Count 4.59 X10*6/uL (4.20-5.50); Red Cell Distribution Width 16.3 % (11.0-16.0); SCAN SMEAR FLAG 1; White Blood Count 10.1 X10*3/uL (4.8-10.8)
[2020-11-19 06:05] LABS: INTERNATIONAL NORM RATIO 1.6 (0.9-1.1); Prothrombin Time 19.3 SEC (10.8-13.0)
[2020-11-19 06:07] LABS: Partial Thromboplastin Time 31.4 SEC (24.1-38.0)
[2020-11-19] MEDS: Pantoprazole Sodium 40 MG/10 ML VIAL IVPUSH ×2 (06:09→16:08)
[2020-11-19 06:12] LABS: Alanine Aminotransferase 24 U/L (0-31); Albumin Level 2.8 g/dL (3.5-5.0); Alkaline Phosphatase 121 U/L (39-117); Anion Gap 16 (12-20); Aspartate Amino Transferase 31 U/L (5-31); Bilirubin Direct 0.6 mg/dL (0.0-0.5); Bilirubin Total 1.1 mg/dL (0.0-1.0); Blood Urea Nitrogen 82 mg/dL (9-16); C Reactive Protein 15.43 mg/dL (< or = 0.50); Calcium 8.3 mg/dL (8.4-10.2); Carbon Dioxide 27 mmol/L (22-29); Chloride 92 mmol/L (96-108); Creatinine Clr Calc Pharmacy 57.9; Estimated Glomerular Filt Rate 37; Glucose Random 410 mg/dL (60-115); Lactate Dehydrogenase 499 U/L (122-220); Magnesium 2.2 mg/dL (1.6-2.6); Phosphorus 4.8 mg/dL (2.7-4.5); Potassium 4.8 mmol/L (3.3-5.1); Sodium 130 mmol/L (135-145); Total Protein 6.4 g/dL (6.5-8.0)
[2020-11-19 06:14] LABS: B Type Natriuretic Peptide 48 pg/mL (<100)
[2020-11-19 06:25] LABS: D Dimer 3104 NG/ML
[2020-11-19 06:29] LABS: Ferritin 744 ng/mL (10-250)
[2020-11-19 06:59] LABS: SLIDE REVIEW VERIFIED
[2020-11-19] MEDS: Insulin Regular/NS 100 UNIT/100 ML PLAST..BAG IVCONT (07:55)
[2020-11-19] MEDS: Insulin Regular, Human 100 UNIT/ML 3 ML VIAL 10 UNIT IVPUSH (07:55)
[2020-11-19] MEDS: Amiodarone HCL 200 MG TABLET PO (08:02)
[2020-11-19] MEDS: Apixaban 5 MG TABLET PO ×2 (08:03→21:01)
[2020-11-19] MEDS: dexAMETHasone 6 MG TABLET PO (08:03)
[2020-11-19] MEDS: Metoprolol Tartrate 25 MG TABLET 75 MG PO (08:03)
[2020-11-19] MEDS: Cholecalciferol (Vitamin D3) 25 MCG TABLET 50 MCG PO (08:03)
[2020-11-19] MEDS: Ascorbic Acid 500 MG TABLET PO ×2 (08:04→21:01)
[2020-11-19] MEDS: Atorvastatin Calcium 80 MG TABLET PO (08:04)
[2020-11-19] MEDS: Chlorhexidine Gluc Oral Rinse 15 ML MOUTHWASH BUCCAL ×3 (08:04→21:01)
[2020-11-19] MEDS: 0.9 % Sodium Chloride Flush 3 ML SYRINGE IVFLUSH ×2 (08:06→23:29)
[2020-11-19] MEDS: Nystatin Powder 15 GM BOTTLE 1 APPL TOPICAL ×2 (08:06→21:02)
[2020-11-19 08:57] LABS: Glucose, Whole Blood 318 mg/dL (60-115)
[2020-11-19 09:02] LABS: Free T4 (Free Thyroxine) 1.32 ng/dL (0.71-1.85); Thyroid Stimulating Hormone 0.19 uIU/mL (0.32-4.0)
[2020-11-19 09:04] LABS: Glucose, Whole Blood 379 mg/dL (60-115)
[2020-11-19 10:11] LABS: Glucose, Whole Blood 278 mg/dL (60-115)
--- NOTE | 2020-11-19 10:30 | CA_ITS ---
Transthoracic Echocardiogram Patient (Last, First, Middle): Lawanda Carr, Gender: Female Date of : 1955 Age: 65 Procedure Date: 11/19/2020 Procedure Type: Transthoracic Echocardiogram Location: ICU Height: 167.64 cm Weight: 149.69 kg BSA: 2.47 m2 Heart Rate: bpm BP: 137 / 64 mmHg Quality Nurse: Referring MD: Alyssa Jansen MD Symptoms: History of coronary disease and diastolic CHF now on ventila Study Quality: Technically Difficult ECG Rhythm: Sinus Conclusions: - The left ventricular systolic function is normal. The visually estimated ejection fraction is between 55-60%. - No obvious valvular pathology seen on this study. Findings Procedure Information Contrast agent, definity, is being given per protocol without apparent complications. Left Ventricle The left ventricle was not well visualized. Normal left ventricular cavity size. The left ventricular systolic function is normal. The visually estimated ejection fraction is between 55-60%. There is no evidence of regional wall motion abnormalities. E/E prime ratio is >15, consistent with elevated filling pressures. Evidence suggests grade I (mild) diastolic dysfunction. Cannot clearly measure wall thickness. Right Ventricle Normal right ventricular cavity size and systolic function. Atria The left atrium is mildly dilated. The right atrium is normal in size. Aortic Valve The aortic valve was not well visualized. There is no aortic valve stenosis. There is no aortic valve regurgitation. Mitral Valve The mitral valve appears normal. There is mild mitral valve regurgitation. There is no mitral valve stenosis. Pulmonic Valve The pulmonic valve was not well visualized. Tricuspid Valve Normal tricuspid valve structure. There is trace tricuspid valve regurgitation. The pulmonary artery systolic pressure is not calculated. (patient on ventilator). Great Vessels The aorta was not well visualized. Venous The inferior vena cava was not well visualized. The inferior vena cava is normal in size. Pericardium/Pleural There is no evidence of pericardial effusion. Prior Study Comparison Changes noted compared to prior study dated: 11/09/2019. Mitral regurgitation seems less prominent. Recommendations, Care & Conclusions No obvious valvular pathology seen on this study. Measurements 2D Linear Measurements IVSd: 1.45 0.6-0.9/0.6-1.0 cm LVIDd: 4.18 3.9-5.3/4.2-5.9 cm LVIDd Index: 1.69 2.4-3.2/2.2-3.1 cm/m2 LVIDs: 3.22 2.0-3.6 cm LVPWd: 1.46 0.7-1.1 cm Ao Root: 2.90 2.1-3.5 cm LA Diam: 4.60 2.7-3.8/3.0-4.0 cm LAIDs Index: 1.86 1.5-2.3 cm/m2 LV Mass: 294.70 67-162/88-224 g LV Mass Index: 119.31 43-95/49-115 g/m2 LVOT Diam: 2.00 3.0+(-)1.3 cm Mitral Valve MV Pk E: 1.16 MV PK A: 1.20 MV Decel Time: 254.00 E/A: 1.00 E'Lateral: 6.00 E'Medial: 5.90 E/E' Med: 19.70 E/E' Lat: 19.30 PHT: 74.00 MVA PHT: 2.97 Decel [place]: 4.57 Aortic Valve AoV Pk David: 1.80 AoV Mn David: 1.13 AoV VTI: 0.41 AoV Pk Grad: 13.00 Aov Mn Grad: 6.00 THOMAS Cont.VTI: 1.54 LVOT LVOT Pk David: 0.95 LVOT Mn David: 0.60 LVOT VTI: 0.20 LVOT Pk Grad: 4.00 LVOT Mn Grad: 2.00 LVOT Diam: 2.00 LVOT Area: 3.14 Diastolic Function MV Pk E: 1.16 MV Pk A: 1.20 E/A: 1.00 E'Medial: 5.90 E/E' Med: 19.70 E' Laterial: 6.00 E/E' Lat: 19.30 Tricuspid Valve TR Pk David: 2.26 TR Pk Grad: 20.00 RA Press: 3.00 RVSP: 23.00 Great Vessels Aorta Ao Root-2D: 2.90 2.0-3.7 cm Pulmonary Valve PV Pk David: 1.00 Peak PV Grad: 4.00 Updated in Other Vendor System with Status of Final Maury Roa MD electronically signed on 11/19/2020 4:43:32 PM with status of Final
--- NOTE | 2020-11-19 10:41 | MHC.CLN ---
RE: CONSULTS PT RECEIVING GLUCERNA AT MAX GOAL 50CC/HR WITH 120CC FREE WATER FLSUHES Q 4HRS PROVIDES 1200KCALS (1792 WITH SEDATION; 30KCALS/KG), 50G PROTEIN (.8G/KG), 1744CC TOTAL WATER FROM FORMULA AND FLUSH RECOMMEND ADDING PROSOURCE 30CC BID VIA TF TO PROVIDE AN ADDITIONAL 60KCALS, 30G PROTEIN TO PROMOTE WOUND HEALING MONITOR TOLERANCE, RESIDUALS AND LYTES SEE ALSO CLINICAL NUTRITION ASSESSMENT
[2020-11-19 10:59] LABS: Glucose, Whole Blood 224 mg/dL (60-115)
--- NOTE | 2020-11-19 11:10 | CONS_ITS ---
DATE OF SERVICE: 11/19/2020 REFERRING PHYSICIAN: Alyssa Jansen MD CHIEF COMPLAINT: Shortness of breath. HISTORY OF PRESENT ILLNESS: Ms. Carr is a 65-year-old woman with a known history of CAD, congestive heart failure, atrial fibrillation on Eliquis, in addition to a history of diffuse alveolar hemorrhage, recurrent admission and bronchoscopy. The patient did have diffuse alveolar hemorrhage back in November 2019, that was confirmed via bronchoscopy with serosanguineous alveolar returns. The patient had been on Eliquis and there was some evidence of acute inflammation of the mucosa suggesting some degree of diffuse alveolar hemorrhage. Her ANCA was negative at the time, so therefore was unlikely to be a vasculitis and unlikely to be a pulmonary renal syndrome. The patient had been admitted again back in July with similar presentation of shortness of breath, thought to be congestive heart failure related and the patient was diuresed effectively. Her x-rays subsequent to that did improve dramatically. The patient tolerated her anticoagulation. However, more recently around mid October, the patient started developing a cough in addition to some chest discomfort. Her symptoms worsen, she decided to come into the [facility] ER, but the patient was found to be in some mild respiratory distress, acute respiratory failure, was placed on high-flow. Her COVID did come back positive. She was admitted to the intermediate medical care unit, was placed on high-flow, and she was started on Decadron, antibiotics and Infectious Disease consulted for remdesivir. However, her respiratory status continued worsening. Subsequently, placed on high-flow in addition to a non-rebreather, still saturating in the low 90s. Yesterday, the patient developed progressive hypoxia, and discussion with the family and the patient took place and the patient was subsequently intubated for impending respiratory failure, currently on mechanical ventilation with a tidal volume of 650 and a PEEP of 10 with FiO2 of 0.6. The patient's x-rays demonstrate diffuse opacities concerning for previous presentations. However, the patient is not having any bloody aspirate from the endotracheal tube, which is reassuring. Seems to be tolerating the Eliquis. The patient currently is sedated and no further information is available. REVIEW OF SYSTEMS: Unable to be obtained as the patient is intubated and sedated. PAST MEDICAL HISTORY: CAD, CHF, chronic pancreatitis, COPD, hypertension, dyslipidemia, obesity, pulmonary embolism in the past, right-sided heart failure, history of SVT, history of diffuse alveolar hemorrhage, in this case it is bland, based on the fact that she was on anticoagulation and negative ANCA, nothing to suggest vasculitis. FAMILY HISTORY: CAD and diabetes. PAST SURGICAL HISTORY: She had a cardiac catheterization. SOCIAL HISTORY: She is a never smoker. She has children. ALLERGIES: PLEASE REFER TO THE MAR INCLUDING AZITHROMYCIN, UNCLEAR OF THE REACTION; MACROBID, UNCLEAR OF THE REACTION. MEDICATIONS: Please refer to the MAR. She did complete remdesivir. Currently on Eliquis 5 b.i.d., dexamethasone, metoprolol, propofol, chlorhexidine, insulin, Protonix. PHYSICAL EXAMINATION: GENERAL: The patient is sedated, on mechanical ventilation. VITAL SIGNS: Blood pressure 120/55, respirations 19, saturating 93% on 0.6 FiO2 with 10 of PEEP. HEENT: Pupils equal and reactive to light. ET tube in place. NECK: Supple. LUNGS: Diminished bilaterally. CARDIAC: Tachycardic. No extra heart sounds appreciated. EXTREMITIES: No significant edema. As far as her ET tube, I did not see any blood or serosanguineous return from the suction catheter. No rashes that I could appreciate. LABORATORY DATA: White count is decreased from 11.8 to 10.1, hemoglobin 11.8, platelet count 141. The patient does have a left shift. D-dimer 3104 while on Eliquis, decreased from 4295. Last blood gas with a pH 7.38, pCO2 of 41, and PaO2 of 53. Venous gas also done. Chemistries significant for BUN of 82, creatinine of 1.42. Blood sugars are high. The patient does have elevations in her liver function panel. C-reactive protein significantly high 15.43, procalcitonin 0.31, which is little high as on yesterday. Serology: Her COVID-19 PCR was positive on the . Previous blood work, ANCA negative, IgE 1843. IMAGING STUDIES: Perceived by me. CT scan of the chest done back in 11/09/2020 upon admission to the hospital demonstrating bilateral ground-glass opacities. Subsequent chest x-rays from 11/18/2020, diffuse bilateral airspace disease. ET tube appears to be a couple of centimeters above the main dee dee, extensive disease. MICROBIOLOGY: Blood cultures positive for Staph aureus that was back in 2020 and was a coag-negative. Subsequent blood cultures were negative, likely contamination. ASSESSMENT: Ms. Carr is a 65-year-old woman with a known history of coronary artery disease, obesity, chronic obstructive pulmonary disease, bland diffuse alveolar hemorrhage, presenting with severe COVID pneumonia with acute respiratory failure. IMPRESSION: 1. Acute hypoxic respiratory failure secondary to worsening COVID pneumonia, ARDS. 2. History of diffuse alveolar hemorrhage, likely secondary to Eliquis and Plavix at the time. The patient appears to be tolerating the medication well this time, may have been prompted from some degree of increased hydrostatic pressure from congestive heart failure at the time. No evidence of any diffuse alveolar hemorrhage at this time. I did review her previous CAT scans from November, where she had the process, and the findings on the CAT scans were different suggesting more coarse areas of airspace disease in the bronchovascular distribution that are different from this diffuse alveolar process that she is having now. 3. Chronic obstructive pulmonary disease. 4. History of pulmonary embolism, on anticoagulation, now with a significantly elevated D-dimer from the endotheliitis as a result of her COVID-19. RECOMMENDATIONS: 1. Consider post dose methylprednisolone in view of her significant pneumonitis. 2. Sputum cultures to address any potential postviral bacterial infections. Could consider starting doxycycline in view of her blood culture was Staph aureus that was likely a contaminant but bringing up the question of postviral process, especially with the elevated procalcitonin. Continue with mechanical supportive care. If again we notice any evidence of any bloody return from the ET tube, could consider bronchoscopy. Further recommendations based on forthcoming data. MD AGUS Amezquita/MAX / [id number]
--- NOTE | 2020-11-19 11:13 | P.PNCC_ITS ---
Subjective Subjective Date of Service: 11/19/20 Interval History: 65-year-old morbidly obese type 2 diabetic and hypertensive with history of sleep apnea paroxysmal atrial fibrillation on 400 mg of amiodarone daily for at least a year presents with acute on chronic hypoxic respiratory failure due to COVID-19 bilateral pneumonitis and ARDS She was on maximum support between nasal high-flow in 100% non-rebreather failing with oxygen saturations down to 79% increase minute ventilatory req uirement of at least 18 liters/minute and brought down for intubation which went successfully currently on FiO2 of 60% Glucose is 400 with pseudo hyponatremia at 1:30 a.m. corrected to 135 and therefore started on a IV insulin drip for the Physical Exam Vital Signs: Vital Signs: Last Vital Signs Temp 97.2 F 11/19/20 10:53 Pulse 77 11/19/20 10:53 Resp 17 11/19/20 10:53 BP 126/58 L 11/19/20 10:53 Pulse Ox 94 11/19/20 10:53 Body Mass Index 53.2 Const: Other: Arousable but on propofol only and moves all 4 extremities Cardiac with no neck vein distension and CVP initially at 12 currently averaging at 7 and cardiac exam with normal sinus rhythm normal S1 normal S2 Lungs without adventitious sounds Abdomen good bowel sounds tolerating feedings no again a megaly Skin with a midline stage II breakdown Objective Data Labs CBC & Chem 7: 11/19/20 05:20 11/19/20 05:20 Labs: Laboratory Results - last 24 hr 11/18/20 11/18/20 11/18/20 12:12 15:40 15:40 WBC 11.8 H RBC 4.83 Hgb 12.4 Hct 38.6 MCV 79.9 L MCH 25.7 L MCHC 32.1 RDW 16.4 H Plt Count 149 L MPV 9.5 Immature Gran % (Auto) 1.9 H Neut % (Auto) 93.5 H Lymph % (Auto) 2.3 L [place] % (Auto) 2.0 Eos % (Auto) 0.2 Baso % (Auto) 0.1 Lymph # (Auto) 0.3 L [place] # (Auto) 0.2 Eos # (Auto) 0.0 Baso # (Auto) 0.0 Abs Immat Gran (auto) 0.23 H Absolute Neuts (auto) 11.1 H Absolute Nucleated RBC 0.000 Nucleated RBC % (auto) 0.0 Smear Tech's Comments VERIFIED PT INR APTT D-Dimer VBG pH VBG pCO2 VBG pO2 VBG HCO3 VBG O2 Saturation VBG Base Excess Sodium 134 L Potassium 5.7 H D Chloride 97 Carbon Dioxide 25 Anion Gap 18 BUN 70 H Creatinine 1.34 Estim Creat Clear Calc 61.4 Estimated GFR 39 POC Glucose 304 H Random Glucose 309 H D Calcium 8.6 Phosphorus 4.3 Magnesium 2.3 Ferritin Total Bilirubin 1.3 H Direct Bilirubin AST 45 H ALT 23 Alkaline Phosphatase 140 H Lactate Dehydrogenase 599 H Total Creatine Kinase C-Reactive Protein 14.24 H B-Natriuretic Peptide Total Protein 6.8 Albumin 2.9 L Procalcitonin TSH Free T4 11/18/20 11/18/20 11/18/20 15:40 15:40 15:40 WBC RBC Hgb Hct MCV MCH MCHC RDW Plt Count MPV Immature Gran % (Auto) Neut % (Auto) Lymph % (Auto) [place] % (Auto) Eos % (Auto) Baso % (Auto) Lymph # (Auto) [place] # (Auto) Eos # (Auto) Baso # (Auto) Abs Immat Gran (auto) Absolute Neuts (auto) Absolute Nucleated RBC Nucleated RBC % (auto) Smear Tech's Comments PT INR APTT D-Dimer 4295 VBG pH 7.35 VBG pCO2 49 VBG pO2 52 VBG HCO3 28 VBG O2 Saturation 83.0 VBG Base Excess 2.0 Sodium Potassium Chloride Carbon Dioxide Anion Gap BUN Creatinine Estim Creat Clear Calc Estimated GFR POC Glucose Random Glucose 308 H Calcium Phosphorus Magnesium Ferritin Total Bilirubin Direct Bilirubin AST ALT Alkaline Phosphatase Lactate Dehydrogenase Total Creatine Kinase 124 C-Reactive Protein B-Natriuretic Peptide Total Protein Albumin Procalcitonin TSH Free T4 11/18/20 11/18/20 11/18/20 15:40 15:51 23:39 WBC RBC Hgb Hct MCV MCH MCHC RDW Plt Count MPV Immature Gran % (Auto) Neut % (Auto) Lymph % (Auto) [place] % (Auto) Eos % (Auto) Baso % (Auto) Lymph # (Auto) [place] # (Auto) Eos # (Auto) Baso # (Auto) Abs Immat Gran (auto) Absolute Neuts (auto) Absolute Nucleated RBC Nucleated RBC % (auto) Smear Tech's Comments PT INR APTT D-Dimer VBG pH VBG pCO2 VBG pO2 VBG HCO3 VBG O2 Saturation VBG Base Excess Sodium Potassium Chloride Carbon Dioxide Anion Gap BUN Creatinine Estim Creat Clear Calc Estimated GFR POC Glucose 267 H 336 H Random Glucose Calcium Phosphorus Magnesium Ferritin Total Bilirubin Direct Bilirubin AST ALT Alkaline Phosphatase Lactate Dehydrogenase Total Creatine Kinase C-Reactive Protein B-Natriuretic Peptide Total Protein Albumin Procalcitonin 0.31 TSH Free T4 11/19/20 11/19/20 11/19/20 05:09 05:20 05:20 WBC RBC Hgb Hct MCV MCH MCHC RDW Plt Count MPV Immature Gran % (Auto) Neut % (Auto) Lymph % (Auto) [place] % (Auto) Eos % (Auto) Baso % (Auto) Lymph # (Auto) [place] # (Auto) Eos # (Auto) Baso # (Auto) Abs Immat Gran (auto) Absolute Neuts (auto) Absolute Nucleated RBC Nucleated RBC % (auto) Smear Tech's Comments PT 19.3 H INR 1.6 H APTT 31.4 D-Dimer 3104 VBG pH VBG pCO2 VBG pO2 VBG HCO3 VBG O2 Saturation VBG Base Excess Sodium 130 L Potassium 4.8 Chloride 92 L Carbon Dioxide 27 Anion Gap 16 BUN 82 H* Creatinine 1.42 H Estim Creat Clear Calc 57.9 Estimated GFR 37 POC Glucose 342 H Random Glucose 410 H* Calcium 8.3 L Phosphorus 4.8 H Magnesium 2.2 Ferritin 744 H Total Bilirubin 1.1 H Direct Bilirubin 0.6 H AST 31 ALT 24 Alkaline Phosphatase 121 H Lactate Dehydrogenase 499 H Total Creatine Kinase 79 D C-Reactive Protein 15.43 H B-Natriuretic Peptide Total Protein 6.4 L Albumin 2.8 L Procalcitonin TSH Free T4 11/19/20 11/19/20 11/19/20 05:20 05:20 05:20 WBC 10.1 RBC 4.59 Hgb 11.8 L Hct 36.7 L MCV 80.0 MCH 25.7 L MCHC 32.2 RDW 16.3 H Plt Count 141 L MPV 9.9 Immature Gran % (Auto) 2.0 H Neut % (Auto) 89.2 H Lymph % (Auto) 5.5 L [place] % (Auto) 2.9 Eos % (Auto) 0.3 Baso % (Auto) 0.1 Lymph # (Auto) 0.6 L [place] # (Auto) 0.3 Eos # (Auto) 0.0 Baso # (Auto) 0.0 Abs Immat Gran (auto) 0.20 H Absolute Neuts (auto) 9.0 H Absolute Nucleated RBC 0.000 Nucleated RBC % (auto) 0.0 Smear Tech's Comments VERIFIED PT INR APTT D-Dimer VBG pH 7.38 VBG pCO2 42 VBG pO2 57 VBG HCO3 25 VBG O2 Saturation 84.0 VBG Base Excess 0.3 Sodium Potassium Chloride Carbon Dioxide Anion Gap BUN Creatinine Estim Creat Clear Calc Estimated GFR POC Glucose Random Glucose Calcium Phosphorus Magnesium Ferritin Total Bilirubin Direct Bilirubin AST ALT Alkaline Phosphatase Lactate Dehydrogenase Total Creatine Kinase C-Reactive Protein B-Natriuretic Peptide 48 Total Protein Albumin Procalcitonin TSH Free T4 11/19/20 11/19/20 11/19/20 07:10 07:59 08:53 WBC RBC Hgb Hct MCV MCH MCHC RDW Plt Count MPV Immature Gran % (Auto) Neut % (Auto) Lymph % (Auto) [place] % (Auto) Eos % (Auto) Baso % (Auto) Lymph # (Auto) [place] # (Auto) Eos # (Auto) Baso # (Auto) Abs Immat Gran (auto) Absolute Neuts (auto) Absolute Nucleated RBC Nucleated RBC % (auto) Smear Tech's Comments PT INR APTT D-Dimer VBG pH VBG pCO2 VBG pO2 VBG HCO3 VBG O2 Saturation VBG Base Excess Sodium Potassium Chloride Carbon Dioxide Anion Gap BUN Creatinine Estim Creat Clear Calc Estimated GFR POC Glucose 379 H* 318 H Random Glucose Calcium Phosphorus Magnesium Ferritin Total Bilirubin Direct Bilirubin AST ALT Alkaline Phosphatase Lactate Dehydrogenase Total Creatine Kinase C-Reactive Protein B-Natriuretic Peptide Total Protein Albumin Procalcitonin TSH 0.19 L Free T4 1.32 11/19/20 11/19/20 10:07 10:54 WBC RBC Hgb Hct MCV MCH MCHC RDW Plt Count MPV Immature Gran % (Auto) Neut % (Auto) Lymph % (Auto) [place] % (Auto) Eos % (Auto) Baso % (Auto) Lymph # (Auto) [place] # (Auto) Eos # (Auto) Baso # (Auto) Abs Immat Gran (auto) Absolute Neuts (auto) Absolute Nucleated RBC Nucleated RBC % (auto) Smear Tech's Comments PT INR APTT D-Dimer VBG pH VBG pCO2 VBG pO2 VBG HCO3 VBG O2 Saturation VBG Base Excess Sodium Potassium Chloride Carbon Dioxide Anion Gap BUN Creatinine Estim Creat Clear Calc Estimated GFR POC Glucose 278 H 224 H Random Glucose Calcium Phosphorus Magnesium Ferritin Total Bilirubin Direct Bilirubin AST ALT Alkaline Phosphatase Lactate Dehydrogenase Total Creatine Kinase C-Reactive Protein B-Natriuretic Peptide Total Protein Albumin Procalcitonin TSH Free T4 Microbiology Microbiology Results: Microbiology 11/09/20 19:57 Blood - Venous Blood Culture - Final Coag negative Staphylococcus 11/09/20 20:54 Blood - Venous Blood Culture - Final No growth after 5 days. Progress Note: A&P Assessment and plan (1) Pneumonia due to 2019-nCoV: Problem details: She has COVID She has oxygen dependency and rather unremarkable liver and kidney tests Status: Acute (2) Hypoxia: Status: Acute (3) Pneumonia due to COVID-19 virus: Status: Acute (4) Type 2 diabetes mellitus with chronic kidney disease: Status: Acute (5) Chronic heart failure with preserved ejection fraction (HFpEF): Status: Acute (6) Right heart failure (secondary to left heart failure): Status: Acute (7) Paroxysmal atrial fibrillation: Status: Acute (8) Respiratory failure with hypoxia and hypercapnia: Status: Acute (9) CAD (coronary artery disease): Problem details: KAREN to LCx for ACS,10/02. Status: Acute (10) Mitral regurgitation: Status: Acute (11) MOISÉS (obstructive sleep apnea): Status: Acute (12) Morbid obesity due to excess calories: Status: Acute (13) Type 2 diabetes mellitus with hyperglycemia, with long-term current use of insulin: Status: Acute (14) Type 2 diabetes mellitus with diabetic polyneuropathy: Status: Acute (15) Hyperlipidemia LDL goal <70: Status: Acute (16) Essential hypertension: Status: Acute (17) Degenerative arthritis of knee, bilateral: Status: Acute Assessment and Plan: Plan is to maintain as minimal sedation as possible check mental status period ically and keep her ventilated on minimal volume to minimize barotrauma follow CVP for volume status Time Spent With Patient Time: Total time spent is greater than 50% in coordination of care (as documented) at patient's floor/unit and/or counseling patient: Total time spent with greater than 50% in coordination of care (as documented) at patient's floor/unit and/or counseling patient:: 45
[2020-11-19 11:58] LABS: Glucose, Whole Blood 222 mg/dL (60-115)
[2020-11-19 14:19] LABS: Glucose, Whole Blood 256 mg/dL (60-115)
[2020-11-19 14:19] LABS: Glucose, Whole Blood 229 mg/dL (60-115)
--- NOTE | 2020-11-19 14:30 | PC.NURSE ---
Pt continues on propofol, easily arousable to touch and with repositioning, pt reaching for et tube and moving upper extremities, synchronus with vent, restraints remain for patient safety continues on AC/VC settings, minute volumes trending 10-11, o2 sat trending 92-96% on 60% fio2 bps trending 120-140s systollically, hr trending 70-80s SR, amiodorone d/cd/ CVP trending 7-8 started on a insulin drip this am, 10 units iv bolus given and drip started per protocol, continue on hourly blood sugars tlc remains to left ij, all port flush with ease with blood return gates output 400ml of clear yellow urine this shift tolerating tube feeds, residual trending 5-10, started on Prosource BID wound care consult placed. Seen by wound care this shift Daughter (Luz) updated by MD this shift
[2020-11-19 15:14] LABS: Glucose, Whole Blood 258 mg/dL (60-115)
[2020-11-19 16:29] LABS: Glucose, Whole Blood 292 mg/dL (60-115)
[2020-11-19] MEDS: Insulin Regular/NS 100 UNIT/100 ML PLAST..BAG 7 UNIT IVCONT (21:59)
[2020-11-19] MEDS: propofoL 1,000 MG/100 ML VIAL 17.96 MG IVCONT (21:59)
[2020-11-19 22:06] LABS: Glucose, Whole Blood 248 mg/dL (60-115)
[2020-11-19 22:06] LABS: Glucose, Whole Blood 267 mg/dL (60-115)
[2020-11-19 22:06] LABS: Glucose, Whole Blood 244 mg/dL (60-115)
[2020-11-19 22:06] LABS: Glucose, Whole Blood 244 mg/dL (60-115)
[2020-11-19 22:06] LABS: Glucose, Whole Blood 275 mg/dL (60-115)
[2020-11-19 23:33] LABS: Glucose, Whole Blood 235 mg/dL (60-115)
[2020-11-19 23:33] LABS: Glucose, Whole Blood 194 mg/dL (60-115)
[2020-11-20] VITALS (34 sets, daily range): BP systolic 98–135; BP diastolic 43–73; PULSE 80–132; RESP 17–23; TEMP 36.9–37.4; O2SAT 92–95
[2020-11-20] MEDS: propofoL 1,000 MG/100 ML VIAL 22.45 MG IVCONT ×5 (01:44→17:14)
[2020-11-20 02:16] LABS: Glucose, Whole Blood 98 mg/dL (60-115)
[2020-11-20 03:26] LABS: Glucose, Whole Blood 115 mg/dL (60-115)
--- NOTE | 2020-11-20 04:25 | PC.NURSE ---
CARE ASSUMED 23;15...REMAINS TUBED/VENTED...VCV...RR 18-22 ON AC 16....FIO2 50%--PEEP WEANED FROM 10 TO 8CM...REMAINS SAO2 94-95%...NSR...BP STABLE..TUBE FEEDS REMAIN 50 CC/HR...INSULIN DRIP 8 UNITS/HR AT HS--WEANED TO 7 UNITS/HR PER PA...DRIP HELD 2AM FOR GLUCOSE 98 @ 2AM--PA PRESENT AND AWARE...3AM GLUCOSE= 115...PROPOFOL 25 MCG/KG/HR...WEAKLY VAZQUEZ SPONTANEOUSLY BUT NOT TO COMMAND...EYES OPEN INTERMITTANTLY BUT DOES NOT TRACK SPEAKER...BILATERAL WRIST RESTRAINTS MAINTAINED FOR LINE/AIRWAY SAFETY
[2020-11-20] MEDS: Pantoprazole Sodium 40 MG/10 ML VIAL IVPUSH ×2 (05:26→17:17)
[2020-11-20 05:27] LABS: Glucose, Whole Blood 160 mg/dL (60-115)
[2020-11-20 05:41] LABS: Basophils Percent Auto 0.2 % (0-2); Eosinophils Absolute Auto 0.1 X10*3/uL (0.0-0.4); Eosinophils Percent Auto 0.4 % (0-4); Hematocrit 38.3 % (37-47); Hemoglobin 12.5 g/dl (12.0-16.0); Imm Gran Abs Auto 0.23 X10*3/uL (0.00-0.03); Imm Gran Pct Auto 1.9 % (0.0-0.4); Lymphocytes Absolute Auto 0.8 X10*3/uL (1.2-4.9); Lymphocytes Percent Auto 6.2 % (20-40); MANUAL DIFF FLAG NO; Mean Corpuscular HGB Conc 32.6 g/dl (31.0-35.0); Mean Corpuscular Hemoglobin 25.7 pg (27.0-33.0); Mean Corpuscular Volume 78.6 fL (80-98); Mean Platelet Volume 9.9 fL (9.4-12.3); Monocytes Absolute Auto 0.4 X10*3/uL (0.1-1.2); Monocytes Percent Auto 3.2 % (2-11); Neutrophils Absolute Auto 10.9 X10*3/uL (2.0-8.3); Neutrophils Percent Auto 88.1 % (45-73); Platelet Count 156 X10*3/uL (160-400); Red Blood Count 4.87 X10*6/uL (4.20-5.50); Red Cell Distribution Width 16.1 % (11.0-16.0); White Blood Count 12.4 X10*3/uL (4.8-10.8)
[2020-11-20 05:47] LABS: INTERNATIONAL NORM RATIO 1.3 (0.9-1.1); Prothrombin Time 15.6 SEC (10.8-13.0)
[2020-11-20 05:50] LABS: Partial Thromboplastin Time 30.3 SEC (24.1-38.0)
[2020-11-20 05:51] LABS: Base Excess VBG 1.2 mmol/L; HCO3 VBG 25 mmol/L; PCO2 VBG 37 mmHg; PO2 VBG 46 mmHg; pH VBG 7.43 (7.32-7.43)
[2020-11-20 05:58] LABS: D Dimer 3002 NG/ML
[2020-11-20 06:51] LABS: Triiodothyronine T3 Free 1.3 pg/mL (2.3-4.2)
[2020-11-20 06:51] LABS: Ferritin 764 ng/mL (10-250)
[2020-11-20 07:18] LABS: Alanine Aminotransferase 24 U/L (0-31); Albumin Level 2.9 g/dL (3.5-5.0); Alkaline Phosphatase 120 U/L (39-117); Aspartate Amino Transferase 33 U/L (5-31); Bilirubin Direct 0.6 mg/dL (0.0-0.5); Blood Urea Nitrogen 80 mg/dL (9-16); C Reactive Protein 9.05 mg/dL (< or = 0.50); Calcium 8.4 mg/dL (8.4-10.2); Creatinine Clr Calc Pharmacy 69.1; Estimated Glomerular Filt Rate 45; Glucose Random 235 mg/dL (60-115); Lactate Dehydrogenase 501 U/L (122-220); Magnesium 2.4 mg/dL (1.6-2.6); Phosphorus 3.8 mg/dL (2.7-4.5); Total Protein 6.6 g/dL (6.5-8.0)
[2020-11-20 07:28] LABS: Glucose, Whole Blood 224 mg/dL (60-115)
[2020-11-20 07:58] LABS: Anion Gap 19 (12-20); Carbon Dioxide 24 mmol/L (22-29); Chloride 95 mmol/L (96-108); Potassium 4.8 mmol/L (3.3-5.1); Sodium 133 mmol/L (135-145)
[2020-11-20 07:58] LABS: Glucose, Whole Blood 224 mg/dL (60-115)
[2020-11-20] MEDS: dexAMETHasone 6 MG TABLET PO (08:20)
[2020-11-20] MEDS: Chlorhexidine Gluc Oral Rinse 15 ML MOUTHWASH BUCCAL ×3 (08:20→20:26)
[2020-11-20] MEDS: Apixaban 5 MG TABLET PO ×2 (08:20→20:26)
[2020-11-20] MEDS: Metoprolol Tartrate 25 MG TABLET 75 MG PO (08:20)
[2020-11-20] MEDS: 0.9 % Sodium Chloride Flush 3 ML SYRINGE IVFLUSH ×2 (08:21→17:17)
[2020-11-20] MEDS: Ascorbic Acid 500 MG TABLET PO ×2 (08:21→20:26)
[2020-11-20] MEDS: Nystatin Powder 15 GM BOTTLE 1 APPL TOPICAL (08:21)
[2020-11-20] MEDS: Cholecalciferol (Vitamin D3) 25 MCG TABLET 50 MCG PO (08:21)
[2020-11-20 09:04] LABS: Glucose, Whole Blood 233 mg/dL (60-115)
[2020-11-20 09:55] LABS: Glucose, Whole Blood 229 mg/dL (60-115)
--- NOTE | 2020-11-20 09:58 | P.CONWO_ITS ---
History of Present Illness Data of Consult Service Date: 11/19/20 [facility] Primary Care Provider: Unknown Physician HPI Reason for consult: buttock wounds The pt is a 65 year old female who has been in the hospital treated for Covid pneumonia and recently worsened in respiratory status and had to be intubated and brought to the ICU. with moving her and rolling it was noted she had several shear injuries with some skin tears to stage 2 wounds on her buttocks.. she is not on pressors but has been on steroids. Review of Systems Review of Systems: Yes unobtainable due to endotracheal tube PMFSH Medical History CAD (coronary artery disease) CHF (congestive heart failure) Chronic heart failure with preserved ejection fraction (HFpEF) Chronic pancreatitis COPD (chronic obstructive pulmonary disease) COPD (chronic obstructive pulmonary disease) Degenerative arthritis of knee, bilateral Diverticulosis Dysuria Essential hypertension Hyperlipidemia LDL goal <70 Hypertensive heart disease Memory loss Morbid obesity due to excess calories Pulmonary embolism Respiratory failure with hypoxia and hypercapnia Right heart failure (secondary to left heart failure) SVT (supraventricular tachycardia) 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 Maternal Grandmother Diabetes Maternal Uncle Diabetes Maternal Aunt Diabetes Surgical History Hx of cardiac catheterization Social History Household Members: Family Housing: Apartment Alcohol intake: never Smoking Status: Never smoker Second Hand Smoke Exposure: No Advance Directives Date on File: 11/30/19 service: No Current occupational status: disabled Meds Allergies Allergy/AdvReac Type Severity Reaction Status Date / Time nitrofurantoin Allergy Intermediate SWELLING Verified 10/17/20 11:23 [From MACROBID] azithromycin [Azithromycin] Allergy Mild SWELLING Verified 10/17/20 11:23 Zithromax Allergy Unknown Swelling Uncoded 10/17/20 11:23 Active Medications: Current Medications Generic Name Dose Route Start Last Admin Trade Name Freq PRN Reason Stop Dose Admin Acetaminophen 650 mg 11/09/20 23:12 11/10/20 21:42 Acetaminophen 325 Mg Tablet PO 650 mg Q6H PRN Administration Pain, Mild (Pain Scale 1-3) Apixaban 5 mg 11/10/20 09:00 11/20/20 08:20 Apixaban 5 Mg Tablet PO 5 mg BID ROCKY Administration Ascorbic Acid 500 mg 11/13/20 21:00 11/20/20 08:21 Ascorbic Acid 500 Mg Tablet PO 500 mg BID ROCKY Administration Chlorhexidine Gluconate 15 ml 11/18/20 21:00 11/20/20 08:20 Chlorhexidine Gluc Oral Rinse 15 Ml Mouthwash BUCCAL 15 ml TID ROCKY Administration Dexamethasone 6 mg 11/10/20 09:00 11/20/20 08:20 Dexamethasone 6 Mg Tablet PO 6 mg DAILY ROCKY Administration Propofol 1,000 mg in 100 mls @ 0 mls/hr 11/18/20 14:45 11/20/20 08:35 Diprivan IVCONT 25 mcg/kg/min .Q0M ROCKY 22.45 mls/hr Administration Protocol Per Protocol Insulin Human Regular 100 unit in 100 mls @ 0 mls/hr 11/19/20 06:30 11/20/20 09:11 Myxredlin IVCONT 4 unit/hr .Q0M ROCKY 4 mls/hr Titration Protocol Per Protocol Metoprolol Tartrate 75 mg 11/10/20 09:00 11/20/20 08:20 Metoprolol Tartrate 25 Mg Tablet PO 75 mg DAILY ROCKY Administration Protocol Nystatin 1 appl 11/18/20 21:00 11/20/20 08:21 Nystatin Powder 15 Gm Bottle TOPICAL 1 appl BID ROCKY Administration Protocol Pantoprazole Sodium 40 mg 11/19/20 06:30 11/20/20 05:26 Pantoprazole Sodium 40 Mg/10 Ml Vial IVPUSH 40 mg BID@0630,1630 ROCKY Administration Propofol 50 mg 11/18/20 14:34 11/18/20 12:45 Propofol 200 Mg/20 Ml Vial IVPUSH 50 mg Q15M PRN Administration anxiety/restlessness Sodium Chloride 3 ml 11/10/20 00:00 11/20/20 08:21 0.9 % Sodium Chloride Flush 3 Ml Syringe IVFLUSH 3 ml QSHIFT ROCKY Administration Vitamin D 50 mcg 11/13/20 15:15 11/20/20 08:21 Cholecalciferol (Vitamin D3) 25 Mcg Tablet PO 50 mcg DAILY [facility] Administration Home Medications Medication Instructions Recorded Confirmed Last Taken Type Eliquis 5 mg PO BID 07/22/20 11/10/20 Unknown History Flovent HFA 1 puff INHALATION BID 07/22/20 11/10/20 Unknown History Incruse Ellipta 1 inh INHALATION DAILY 07/22/20 11/10/20 Unknown History acetaminophen 650 mg PO Q8H PRN 07/22/20 11/10/20 Unknown History albuterol sulfate 2.5 mg INHALATION Q4H PRN 07/22/20 11/10/20 Unknown History amlodipine [Norvasc] 5 mg PO DAILY 07/22/20 11/10/20 Unknown History atorvastatin 80 mg PO DAILY 07/22/20 11/10/20 Unknown History melatonin 3 mg PO BEDTIME PRN 07/22/20 11/10/20 Unknown History metoprolol tartrate 75 mg PO BID 07/22/20 11/10/20 Unknown History olanzapine [Zyprexa] 15 mg PO BEDTIME 07/22/20 11/10/20 Unknown History pantoprazole [Protonix] 20 mg PO DAILY 07/22/20 11/10/20 Unknown History potassium chloride [Klor-Con M20] 20 meq PO DAILY 07/22/20 11/10/20 Unknown History sertraline 200 mg PO DAILY 07/22/20 11/10/20 Unknown History spironolactone 50 mg PO DAILY 07/22/20 11/10/20 Unknown History acetazolamide 250 mg tablet 250 mg PO BID tab 10/17/20 11/10/20 Unknown History bumetanide 2 mg tablet 2 mg PO DAILY tab 10/17/20 11/10/20 Unknown History Physical Exam Vital Signs and Narrative: Vital Signs: Last Vital Signs Temp 99.1 F 11/20/20 09:00 Pulse 92 11/20/20 09:00 Resp 20 11/20/20 09:00 BP 108/66 11/20/20 09:00 Pulse Ox 92 11/20/20 09:00 Body Mass Index 53.2 Skin: Other: pt has some skin tear areas with abraded skin in most of the areas but with some breakdown into superficial fat. these areas are on right buttock mid cheek and left side a little lower towards ischial area Full body images: 1. 2. Results Labs CBC and Chem 7: 11/20/20 05:40 11/20/20 05:40 Labs: Laboratory Results - last 24 hr 11/19/20 11/19/20 11/19/20 07:59 10:07 10:54 MCV MCH MCHC RDW Plt Count MPV Immature Gran % (Auto) Neut % (Auto) Lymph % (Auto) [place] % (Auto) Eos % (Auto) Baso % (Auto) Lymph # (Auto) [place] # (Auto) Eos # (Auto) Baso # (Auto) Abs Immat Gran (auto) Absolute Neuts (auto) Absolute Nucleated RBC Nucleated RBC % (auto) PT INR APTT D-Dimer VBG pH VBG pCO2 VBG pO2 VBG HCO3 VBG O2 Saturation VBG Base Excess Anion Gap Estim Creat Clear Calc Estimated GFR POC Glucose 278 H 224 H Random Glucose Calcium Phosphorus Magnesium Ferritin Total Bilirubin Direct Bilirubin AST ALT Alkaline Phosphatase Lactate Dehydrogenase Total Creatine Kinase C-Reactive Protein Total Protein Albumin Free T3 1.3 L 11/19/20 11/19/20 11/19/20 11:54 12:59 13:58 MCV MCH MCHC RDW Plt Count MPV Immature Gran % (Auto) Neut % (Auto) Lymph % (Auto) [place] % (Auto) Eos % (Auto) Baso % (Auto) Lymph # (Auto) [place] # (Auto) Eos # (Auto) Baso # (Auto) Abs Immat Gran (auto) Absolute Neuts (auto) Absolute Nucleated RBC Nucleated RBC % (auto) PT INR APTT D-Dimer VBG pH VBG pCO2 VBG pO2 VBG HCO3 VBG O2 Saturation VBG Base Excess Anion Gap Estim Creat Clear Calc Estimated GFR POC Glucose 222 H 256 H 229 H Random Glucose Calcium Phosphorus Magnesium Ferritin Total Bilirubin Direct Bilirubin AST ALT Alkaline Phosphatase Lactate Dehydrogenase Total Creatine Kinase C-Reactive Protein Total Protein Albumin Free T3 11/19/20 11/19/20 11/19/20 15:08 16:14 17:11 MCV MCH MCHC RDW Plt Count MPV Immature Gran % (Auto) Neut % (Auto) Lymph % (Auto) [place] % (Auto) Eos % (Auto) Baso % (Auto) Lymph # (Auto) [place] # (Auto) Eos # (Auto) Baso # (Auto) Abs Immat Gran (auto) Absolute Neuts (auto) Absolute Nucleated RBC Nucleated RBC % (auto) PT INR APTT D-Dimer VBG pH VBG pCO2 VBG pO2 VBG HCO3 VBG O2 Saturation VBG Base Excess Anion Gap Estim Creat Clear Calc Estimated GFR POC Glucose 258 H 292 H 275 H Random Glucose Calcium Phosphorus Magnesium Ferritin Total Bilirubin Direct Bilirubin AST ALT Alkaline Phosphatase Lactate Dehydrogenase Total Creatine Kinase C-Reactive Protein Total Protein Albumin Free T3 11/19/20 11/19/20 11/19/20 17:56 18:56 20:05 MCV MCH MCHC RDW Plt Count MPV Immature Gran % (Auto) Neut % (Auto) Lymph % (Auto) [place] % (Auto) Eos % (Auto) Baso % (Auto) Lymph # (Auto) [place] # (Auto) Eos # (Auto) Baso # (Auto) Abs Immat Gran (auto) Absolute Neuts (auto) Absolute Nucleated RBC Nucleated RBC % (auto) PT INR APTT D-Dimer VBG pH VBG pCO2 VBG pO2 VBG HCO3 VBG O2 Saturation VBG Base Excess Anion Gap Estim Creat Clear Calc Estimated GFR POC Glucose 267 H 244 H 248 H Random Glucose Calcium Phosphorus Magnesium Ferritin Total Bilirubin Direct Bilirubin AST ALT Alkaline Phosphatase Lactate Dehydrogenase Total Creatine Kinase C-Reactive Protein Total Protein Albumin Free T3 11/19/20 11/19/20 11/19/20 21:10 22:08 23:13 MCV MCH MCHC RDW Plt Count MPV Immature Gran % (Auto) Neut % (Auto) Lymph % (Auto) [place] % (Auto) Eos % (Auto) Baso % (Auto) Lymph # (Auto) [place] # (Auto) Eos # (Auto) Baso # (Auto) Abs Immat Gran (auto) Absolute Neuts (auto) Absolute Nucleated RBC Nucleated RBC % (auto) PT INR APTT D-Dimer VBG pH VBG pCO2 VBG pO2 VBG HCO3 VBG O2 Saturation VBG Base Excess Anion Gap Estim Creat Clear Calc Estimated GFR POC Glucose 244 H 235 H 194 H Random Glucose Calcium Phosphorus Magnesium Ferritin Total Bilirubin Direct Bilirubin AST ALT Alkaline Phosphatase Lactate Dehydrogenase Total Creatine Kinase C-Reactive Protein Total Protein Albumin Free T3 11/20/20 11/20/20 11/20/20 01:53 03:07 05:10 MCV MCH MCHC RDW Plt Count MPV Immature Gran % (Auto) Neut % (Auto) Lymph % (Auto) [place] % (Auto) Eos % (Auto) Baso % (Auto) Lymph # (Auto) [place] # (Auto) Eos # (Auto) Baso # (Auto) Abs Immat Gran (auto) Absolute Neuts (auto) Absolute Nucleated RBC Nucleated RBC % (auto) PT INR APTT D-Dimer VBG pH VBG pCO2 VBG pO2 VBG HCO3 VBG O2 Saturation VBG Base Excess Anion Gap Estim Creat Clear Calc Estimated GFR POC Glucose 98 115 160 H Random Glucose Calcium Phosphorus Magnesium Ferritin Total Bilirubin Direct Bilirubin AST ALT Alkaline Phosphatase Lactate Dehydrogenase Total Creatine Kinase C-Reactive Protein Total Protein Albumin Free T3 11/20/20 11/20/20 11/20/20 05:40 05:40 05:40 MCV 78.6 L MCH 25.7 L MCHC 32.6 RDW 16.1 H Plt Count 156 L MPV 9.9 Immature Gran % (Auto) 1.9 H Neut % (Auto) 88.1 H Lymph % (Auto) 6.2 L [place] % (Auto) 3.2 Eos % (Auto) 0.4 Baso % (Auto) 0.2 Lymph # (Auto) 0.8 L [place] # (Auto) 0.4 Eos # (Auto) 0.1 Baso # (Auto) 0.0 Abs Immat Gran (auto) 0.23 H Absolute Neuts (auto) 10.9 H Absolute Nucleated RBC 0.000 Nucleated RBC % (auto) 0.0 PT 15.6 H INR 1.3 H APTT 30.3 D-Dimer 3002 VBG pH VBG pCO2 VBG pO2 VBG HCO3 VBG O2 Saturation VBG Base Excess Anion Gap 19 Estim Creat Clear Calc 69.1 Estimated GFR 45 POC Glucose Random Glucose 235 H D Calcium 8.4 Phosphorus 3.8 Magnesium 2.4 Ferritin 764 H Total Bilirubin 1.0 Direct Bilirubin 0.6 H AST 33 H ALT 24 Alkaline Phosphatase 120 H Lactate Dehydrogenase 501 H Total Creatine Kinase 114 D C-Reactive Protein 9.05 H Total Protein 6.6 Albumin 2.9 L Free T3 11/20/20 11/20/20 11/20/20 05:40 06:52 07:54 MCV MCH MCHC RDW Plt Count MPV Immature Gran % (Auto) Neut % (Auto) Lymph % (Auto) [place] % (Auto) Eos % (Auto) Baso % (Auto) Lymph # (Auto) [place] # (Auto) Eos # (Auto) Baso # (Auto) Abs Immat Gran (auto) Absolute Neuts (auto) Absolute Nucleated RBC Nucleated RBC % (auto) PT INR APTT D-Dimer VBG pH 7.43 VBG pCO2 37 VBG pO2 46 VBG HCO3 25 VBG O2 Saturation 75.0 VBG Base Excess 1.2 Anion Gap Estim Creat Clear Calc Estimated GFR POC Glucose 224 H 224 H Random Glucose Calcium Phosphorus Magnesium Ferritin Total Bilirubin Direct Bilirubin AST ALT Alkaline Phosphatase Lactate Dehydrogenase Total Creatine Kinase C-Reactive Protein Total Protein Albumin Free T3 11/20/20 11/20/20 08:58 09:52 MCV MCH MCHC RDW Plt Count MPV Immature Gran % (Auto) Neut % (Auto) Lymph % (Auto) [place] % (Auto) Eos % (Auto) Baso % (Auto) Lymph # (Auto) [place] # (Auto) Eos # (Auto) Baso # (Auto) Abs Immat Gran (auto) Absolute Neuts (auto) Absolute Nucleated RBC Nucleated RBC % (auto) PT INR APTT D-Dimer VBG pH VBG pCO2 VBG pO2 VBG HCO3 VBG O2 Saturation VBG Base Excess Anion Gap Estim Creat Clear Calc Estimated GFR POC Glucose 233 H 229 H Random Glucose Calcium Phosphorus Magnesium Ferritin Total Bilirubin Direct Bilirubin AST ALT Alkaline Phosphatase Lactate Dehydrogenase Total Creatine Kinase C-Reactive Protein Total Protein Albumin Free T3 Assessment and Plan (1) Pneumonia due to 2019-nCoV: Problem details: She has COVID She has oxygen dependency and rather unremarkable liver and kidney tests Status: Acute (2) Pneumonia due to COVID-19 virus: Status: Acute (3) Pressure injury of buttock, stage 2: Problem details: Pt with some shear injury it seems to buttocks bilaterally now intubated and treating for Covid. cont with barrier cream to the area and foam dressing, cont to offload and rotate and reposition every 30 min to one hour and special air mattress etc. careful with moving pt in regards to dragging across sheet. Status: Acute
--- NOTE | 2020-11-20 10:45 | MHC.CM.PN ---
Pt is in ICU and now vented: doing well per MD: responsive to commands: Original d/c plan was for a return to home with [employer] and [facility]: Pt may require higher level of care at d/c: will need to be reassessed once extubated for functional abilities
--- NOTE | 2020-11-20 11:04 | P.PNCC_ITS ---
Subjective Subjective Date of Service: 11/20/20 Interval History: 65-year-old morbidly obese type 2 diabetic female hypertensive with bilateral COVID-19 pneumonitis in ARDS and background of obstructive sleep apnea so she presents with acute on chronic hypoxic/hypercapnic respiratory failure currently intubated and over the 48 hours has been on less than 6 cc/kilos of tidal volume low transpulmonary driving pressure very comfortable minute ventilation between 12 and 13 liters/minute and FiO2 has been weaned from 100% to 50% Physical Exam Vital Signs: Vital Signs: Last Vital Signs Temp 99.3 F 11/20/20 10:00 Pulse 83 11/20/20 11:00 Resp 23 H 11/20/20 11:00 BP 130/69 11/20/20 11:00 Pulse Ox 94 11/20/20 11:00 Body Mass Index 53.2 Const: Other: She awakens follows commands and demonstrates cognitive function otherwise nonfocal neurologically Skin with midline stage II decubitus overlying the coccyx Normal sinus rhythm with CVP that is 0-3 no neck vein distension and good bilateral carotid upstrokes Chest with some coarse bilateral rales consistent with ventilator Abdomen soft good bowel sounds and no organomegaly and tolerating feedings Objective Data Labs CBC & Chem 7: 11/20/20 05:40 11/20/20 05:40 Labs: Laboratory Results - last 24 hr 11/19/20 11/19/20 11/19/20 07:59 11:54 12:59 WBC RBC Hgb Hct MCV MCH MCHC RDW Plt Count MPV Immature Gran % (Auto) Neut % (Auto) Lymph % (Auto) [place] % (Auto) Eos % (Auto) Baso % (Auto) Lymph # (Auto) [place] # (Auto) Eos # (Auto) Baso # (Auto) Abs Immat Gran (auto) Absolute Neuts (auto) Absolute Nucleated RBC Nucleated RBC % (auto) PT INR APTT D-Dimer VBG pH VBG pCO2 VBG pO2 VBG HCO3 VBG O2 Saturation VBG Base Excess Sodium Potassium Chloride Carbon Dioxide Anion Gap BUN Creatinine Estim Creat Clear Calc Estimated GFR POC Glucose 222 H 256 H Random Glucose Calcium Phosphorus Magnesium Ferritin Total Bilirubin Direct Bilirubin AST ALT Alkaline Phosphatase Lactate Dehydrogenase Total Creatine Kinase C-Reactive Protein Total Protein Albumin Free T3 1.3 L 11/19/20 11/19/20 11/19/20 13:58 15:08 16:14 WBC RBC Hgb Hct MCV MCH MCHC RDW Plt Count MPV Immature Gran % (Auto) Neut % (Auto) Lymph % (Auto) [place] % (Auto) Eos % (Auto) Baso % (Auto) Lymph # (Auto) [place] # (Auto) Eos # (Auto) Baso # (Auto) Abs Immat Gran (auto) Absolute Neuts (auto) Absolute Nucleated RBC Nucleated RBC % (auto) PT INR APTT D-Dimer VBG pH VBG pCO2 VBG pO2 VBG HCO3 VBG O2 Saturation VBG Base Excess Sodium Potassium Chloride Carbon Dioxide Anion Gap BUN Creatinine Estim Creat Clear Calc Estimated GFR POC Glucose 229 H 258 H 292 H Random Glucose Calcium Phosphorus Magnesium Ferritin Total Bilirubin Direct Bilirubin AST ALT Alkaline Phosphatase Lactate Dehydrogenase Total Creatine Kinase C-Reactive Protein Total Protein Albumin Free T3 11/19/20 11/19/20 11/19/20 17:11 17:56 18:56 WBC RBC Hgb Hct MCV MCH MCHC RDW Plt Count MPV Immature Gran % (Auto) Neut % (Auto) Lymph % (Auto) [place] % (Auto) Eos % (Auto) Baso % (Auto) Lymph # (Auto) [place] # (Auto) Eos # (Auto) Baso # (Auto) Abs Immat Gran (auto) Absolute Neuts (auto) Absolute Nucleated RBC Nucleated RBC % (auto) PT INR APTT D-Dimer VBG pH VBG pCO2 VBG pO2 VBG HCO3 VBG O2 Saturation VBG Base Excess Sodium Potassium Chloride Carbon Dioxide Anion Gap BUN Creatinine Estim Creat Clear Calc Estimated GFR POC Glucose 275 H 267 H 244 H Random Glucose Calcium Phosphorus Magnesium Ferritin Total Bilirubin Direct Bilirubin AST ALT Alkaline Phosphatase Lactate Dehydrogenase Total Creatine Kinase C-Reactive Protein Total Protein Albumin Free T3 11/19/20 11/19/20 11/19/20 20:05 21:10 22:08 WBC RBC Hgb Hct MCV MCH MCHC RDW Plt Count MPV Immature Gran % (Auto) Neut % (Auto) Lymph % (Auto) [place] % (Auto) Eos % (Auto) Baso % (Auto) Lymph # (Auto) [place] # (Auto) Eos # (Auto) Baso # (Auto) Abs Immat Gran (auto) Absolute Neuts (auto) Absolute Nucleated RBC Nucleated RBC % (auto) PT INR APTT D-Dimer VBG pH VBG pCO2 VBG pO2 VBG HCO3 VBG O2 Saturation VBG Base Excess Sodium Potassium Chloride Carbon Dioxide Anion Gap BUN Creatinine Estim Creat Clear Calc Estimated GFR POC Glucose 248 H 244 H 235 H Random Glucose Calcium Phosphorus Magnesium Ferritin Total Bilirubin Direct Bilirubin AST ALT Alkaline Phosphatase Lactate Dehydrogenase Total Creatine Kinase C-Reactive Protein Total Protein Albumin Free T3 11/19/20 11/20/20 11/20/20 23:13 01:53 03:07 WBC RBC Hgb Hct MCV MCH MCHC RDW Plt Count MPV Immature Gran % (Auto) Neut % (Auto) Lymph % (Auto) [place] % (Auto) Eos % (Auto) Baso % (Auto) Lymph # (Auto) [place] # (Auto) Eos # (Auto) Baso # (Auto) Abs Immat Gran (auto) Absolute Neuts (auto) Absolute Nucleated RBC Nucleated RBC % (auto) PT INR APTT D-Dimer VBG pH VBG pCO2 VBG pO2 VBG HCO3 VBG O2 Saturation VBG Base Excess Sodium Potassium Chloride Carbon Dioxide Anion Gap BUN Creatinine Estim Creat Clear Calc Estimated GFR POC Glucose 194 H 98 115 Random Glucose Calcium Phosphorus Magnesium Ferritin Total Bilirubin Direct Bilirubin AST ALT Alkaline Phosphatase Lactate Dehydrogenase Total Creatine Kinase C-Reactive Protein Total Protein Albumin Free T3 11/20/20 11/20/20 11/20/20 05:10 05:40 05:40 WBC RBC Hgb Hct MCV MCH MCHC RDW Plt Count MPV Immature Gran % (Auto) Neut % (Auto) Lymph % (Auto) [place] % (Auto) Eos % (Auto) Baso % (Auto) Lymph # (Auto) [place] # (Auto) Eos # (Auto) Baso # (Auto) Abs Immat Gran (auto) Absolute Neuts (auto) Absolute Nucleated RBC Nucleated RBC % (auto) PT 15.6 H INR 1.3 H APTT 30.3 D-Dimer 3002 VBG pH VBG pCO2 VBG pO2 VBG HCO3 VBG O2 Saturation VBG Base Excess Sodium 133 L Potassium 4.8 Chloride 95 L Carbon Dioxide 24 Anion Gap 19 BUN 80 H* Creatinine 1.19 Estim Creat Clear Calc 69.1 Estimated GFR 45 POC Glucose 160 H Random Glucose 235 H D Calcium 8.4 Phosphorus 3.8 Magnesium 2.4 Ferritin 764 H Total Bilirubin 1.0 Direct Bilirubin 0.6 H AST 33 H ALT 24 Alkaline Phosphatase 120 H Lactate Dehydrogenase 501 H Total Creatine Kinase 114 D C-Reactive Protein 9.05 H Total Protein 6.6 Albumin 2.9 L Free T3 11/20/20 11/20/20 11/20/20 05:40 05:40 06:52 WBC 12.4 H RBC 4.87 Hgb 12.5 Hct 38.3 MCV 78.6 L MCH 25.7 L MCHC 32.6 RDW 16.1 H Plt Count 156 L MPV 9.9 Immature Gran % (Auto) 1.9 H Neut % (Auto) 88.1 H Lymph % (Auto) 6.2 L [place] % (Auto) 3.2 Eos % (Auto) 0.4 Baso % (Auto) 0.2 Lymph # (Auto) 0.8 L [place] # (Auto) 0.4 Eos # (Auto) 0.1 Baso # (Auto) 0.0 Abs Immat Gran (auto) 0.23 H Absolute Neuts (auto) 10.9 H Absolute Nucleated RBC 0.000 Nucleated RBC % (auto) 0.0 PT INR APTT D-Dimer VBG pH 7.43 VBG pCO2 37 VBG pO2 46 VBG HCO3 25 VBG O2 Saturation 75.0 VBG Base Excess 1.2 Sodium Potassium Chloride Carbon Dioxide Anion Gap BUN Creatinine Estim Creat Clear Calc Estimated GFR POC Glucose 224 H Random Glucose Calcium Phosphorus Magnesium Ferritin Total Bilirubin Direct Bilirubin AST ALT Alkaline Phosphatase Lactate Dehydrogenase Total Creatine Kinase C-Reactive Protein Total Protein Albumin Free T3 11/20/20 11/20/20 11/20/20 07:54 08:58 09:52 WBC RBC Hgb Hct MCV MCH MCHC RDW Plt Count MPV Immature Gran % (Auto) Neut % (Auto) Lymph % (Auto) [place] % (Auto) Eos % (Auto) Baso % (Auto) Lymph # (Auto) [place] # (Auto) Eos # (Auto) Baso # (Auto) Abs Immat Gran (auto) Absolute Neuts (auto) Absolute Nucleated RBC Nucleated RBC % (auto) PT INR APTT D-Dimer VBG pH VBG pCO2 VBG pO2 VBG HCO3 VBG O2 Saturation VBG Base Excess Sodium Potassium Chloride Carbon Dioxide Anion Gap BUN Creatinine Estim Creat Clear Calc Estimated GFR POC Glucose 224 H 233 H 229 H Random Glucose Calcium Phosphorus Magnesium Ferritin Total Bilirubin Direct Bilirubin AST ALT Alkaline Phosphatase Lactate Dehydrogenase Total Creatine Kinase C-Reactive Protein Total Protein Albumin Free T3 Microbiology Microbiology Results: Microbiology 11/09/20 19:57 Blood - Venous Blood Culture - Final Coag negative Staphylococcus 11/09/20 20:54 Blood - Venous Blood Culture - Final No growth after 5 days. Progress Note: A&P Assessment and plan (1) Pressure injury of buttock, stage 2: Problem details: Pt with some shear injury it seems to buttocks bilaterally now intubated and treating for Covid. cont with barrier cream to the area and foam dressing, cont to offload and rotate and reposition every 30 min to one hour and special air mattress etc. careful with moving pt in regards to dragging across sheet. Status: Acute (2) Pneumonia due to 2019-nCoV: Problem details: She has COVID She has oxygen dependency and rather unremarkable liver and kidney tests Status: Acute (3) Hypoxia: Status: Acute (4) Pneumonia due to COVID-19 virus: Status: Acute (5) Type 2 diabetes mellitus with chronic kidney disease: Status: Acute (6) Chronic heart failure with preserved ejection fraction (HFpEF): Status: Acute (7) Right heart failure (secondary to left heart failure): Status: Acute (8) Respiratory failure with hypoxia and hypercapnia: Status: Acute (9) Paroxysmal atrial fibrillation: Status: Acute (10) CAD (coronary artery disease): Problem details: KAREN to LCx for ACS,10/02. Status: Acute (11) Mitral regurgitation: Status: Acute (12) MOISÉS (obstructive sleep apnea): Status: Acute (13) Morbid obesity due to excess calories: Status: Acute (14) Type 2 diabetes mellitus with hyperglycemia, with long-term current use of insulin: Status: Acute (15) Type 2 diabetes mellitus with diabetic polyneuropathy: Status: Acute (16) Essential hypertension: Status: Acute (17) Degenerative arthritis of knee, bilateral: Status: Acute (18) Hyperlipidemia LDL goal <70: Status: Acute Assessment and Plan: Continue above ventilatory support and surveillance seen all for secondary infections of which thus far none at some point we will reimage by CT scan for other objective signs possibly when we are able to wean the FiO2 down to 40% Time Spent With Patient Time: Total time spent is greater than 50% in coordination of care (as documented) at patient's floor/unit and/or counseling patient: Total time spent with greater than 50% in coordination of care (as documented) at patient's floor/unit and/or counseling patient:: 35 No Severe Sepsis: No Severe Sepsis
[2020-11-20 11:19] LABS: Glucose, Whole Blood 223 mg/dL (60-115)
[2020-11-20 11:59] LABS: Glucose, Whole Blood 228 mg/dL (60-115)
[2020-11-20 12:17] LABS: B Type Natriuretic Peptide 56 pg/mL (<100)
[2020-11-20 12:58] LABS: Glucose, Whole Blood 205 mg/dL (60-115)
[2020-11-20 13:53] LABS: Glucose, Whole Blood 224 mg/dL (60-115)
[2020-11-20 14:59] LABS: Glucose, Whole Blood 240 mg/dL (60-115)
--- NOTE | 2020-11-20 15:19 | PC.NURSE ---
pt remains on propofol, easily arousable, able to nod appropriately to yes/no questions, able to face time with family this shift, restraints remain for pt safety bp trending 120-130s systollically tolerating tube feeds, residuals 5, continues on water flushes 750ml of urine out this shift continues on insulin drip
[2020-11-20 15:56] LABS: Glucose, Whole Blood 227 mg/dL (60-115)
[2020-11-20 16:59] LABS: Glucose, Whole Blood 203 mg/dL (60-115)
[2020-11-20 18:03] LABS: Glucose, Whole Blood 204 mg/dL (60-115)
[2020-11-20] MEDS: dilTIAZem HCL 50 MG/10 ML VIAL 20 MG IVPUSH (18:07)
[2020-11-20] MEDS: dilTIAZem HCL 125 MG in 0.9 % Sodium Chloride 100 ML 10 MG IVCONT (18:20)
--- NOTE | 2020-11-20 18:30 | PC.NURSE ---
1800 Patient's rhythm changed to a.flutter on telemetry from sinus rhythm with HR up to 130s -140s. Notified . Administered ordered 20mg Cardizem IVP and started patient on Cardizem drip per protocol. HR remains in the 130, MD aware. Will continue to monitor HR and rhythm. Will report recent above event to oncoming night RN to continue to monitor effectiveness of medication.
[2020-11-20] MEDS: Insulin Regular/NS 100 UNIT/100 ML PLAST..BAG 6 UNIT IVCONT (20:25)
[2020-11-20] MEDS: propofoL 1,000 MG/100 ML VIAL 35.92 MG IVCONT (20:25)
[2020-11-20] MEDS: propofoL 1,000 MG/100 ML VIAL 26.94 MG IVCONT (23:34)
[2020-11-20 23:56] LABS: Glucose, Whole Blood 193 mg/dL (60-115)
[2020-11-20 23:56] LABS: Glucose, Whole Blood 210 mg/dL (60-115)
[2020-11-20 23:56] LABS: Glucose, Whole Blood 202 mg/dL (60-115)
[2020-11-21] VITALS (33 sets, daily range): BP systolic 90–135; BP diastolic 50–74; PULSE 72–135; RESP 16–19; TEMP 36.7–37.4; O2SAT 90–97
[2020-11-21] MEDS: dilTIAZem HCL 125 MG in 0.9 % Sodium Chloride 100 ML 10 MG IVCONT (01:53)
[2020-11-21 02:18] LABS: Glucose, Whole Blood 155 mg/dL (60-115)
[2020-11-21] MEDS: propofoL 1,000 MG/100 ML VIAL 26.94 MG IVCONT (03:17)
[2020-11-21] MEDS: Metoprolol Tartrate 5 MG in 0.9 % Sodium Chloride 50 ML 220 MG IV (05:06)
[2020-11-21] MEDS: Pantoprazole Sodium 40 MG/10 ML VIAL IVPUSH ×2 (05:13→17:43)
[2020-11-21] MEDS: propofoL 1,000 MG/100 ML VIAL 44.91 MG IVCONT (06:13)
[2020-11-21 06:18] LABS: MANUAL DIFF FLAG NO
--- NOTE | 2020-11-21 06:29 | W.PM.CCHP ---
Procedures Date of Service Date of Service: 11/21/20 Procedure Note Procedure Note: Pt was in atrial flutter which contributing to desaturations, rhythm was nonresponsive to Cardizem boluses, Cardizem drip and Lopressor boluses. With Dr. Jansen at the bedside, placed pacer pads on the apex and the right parasternal area as using a biphasic device, patient was shocked with 75 joules, responded well, is currently in sinus rhythm at 81BPM.
[2020-11-21] MEDS: Midazolam HCl/PF 2 MG/2 ML VIAL IVPUSH (06:32)
[2020-11-21 06:42] LABS: Basophils Percent Auto 0.2 % (0-2); Eosinophils Absolute Auto 0.1 X10*3/uL (0.0-0.4); Eosinophils Percent Auto 0.9 % (0-4); Hematocrit 40.1 % (37-47); Hemoglobin 12.7 g/dl (12.0-16.0); Imm Gran Abs Auto 0.33 X10*3/uL (0.00-0.03); Imm Gran Pct Auto 3.1 % (0.0-0.4); Lymphocytes Percent Auto 9.2 % (20-40); Mean Corpuscular HGB Conc 31.7 g/dl (31.0-35.0); Mean Corpuscular Hemoglobin 25.3 pg (27.0-33.0); Mean Platelet Volume 10.4 fL (9.4-12.3); Monocytes Absolute Auto 0.4 X10*3/uL (0.1-1.2); Monocytes Percent Auto 3.5 % (2-11); Neutrophils Absolute Auto 8.9 X10*3/uL (2.0-8.3); Neutrophils Percent Auto 83.1 % (45-73); Platelet Count 163 X10*3/uL (160-400); Red Blood Count 5.01 X10*6/uL (4.20-5.50); Red Cell Distribution Width 16.6 % (11.0-16.0); White Blood Count 10.7 X10*3/uL (4.8-10.8)
[2020-11-21 06:45] LABS: VBG HCO3 26 mmol/L; VBG pCO2 40 mmHg; VBG pH 7.42 (7.32-7.43); VBG pO2 60 mmHg
[2020-11-21 06:47] LABS: Alanine Aminotransferase 22 U/L (0-31); Albumin Level 2.8 g/dL (3.5-5.0); Alkaline Phosphatase 111 U/L (39-117); Anion Gap 18 (12-20); Aspartate Amino Transferase 31 U/L (5-31); Bilirubin Direct 0.5 mg/dL (0.0-0.5); Bilirubin Total 0.8 mg/dL (0.0-1.0); Blood Urea Nitrogen 71 mg/dL (9-16); C Reactive Protein 8.03 mg/dL (< or = 0.50); Calcium 8.3 mg/dL (8.4-10.2); Carbon Dioxide 26 mmol/L (22-29); Chloride 98 mmol/L (96-108); Creatinine Clr Calc Pharmacy 83.9; Estimated Glomerular Filt Rate 57; Glucose Random 187 mg/dL (60-115); Lactate Dehydrogenase 500 U/L (122-220); Magnesium 2.5 mg/dL (1.6-2.6); Phosphorus 4.2 mg/dL (2.7-4.5); Potassium 4.6 mmol/L (3.3-5.1); Sodium 137 mmol/L (135-145); Total Protein 6.7 g/dL (6.5-8.0)
[2020-11-21 06:50] LABS: INTERNATIONAL NORM RATIO 1.3 (0.9-1.1)
[2020-11-21 06:52] LABS: Partial Thromboplastin Time 35.9 SEC (24.1-38.0)
[2020-11-21 06:59] LABS: B Type Natriuretic Peptide 115 pg/mL (<100)
[2020-11-21 07:02] LABS: D Dimer 1874 NG/ML
--- NOTE | 2020-11-21 07:07 | PC.NURSE ---
PT REMAINED IN AFLUTTER MOST OF NIGHT. CARDIZEM GTT RUNNING AT MAX RATE OF 15 MG/HR WITH MINIMAL EFFECT. PA AWARE. 10 MG IVP CARDIZEM X2 WITH NO EFFECT. 5 MG IV LOPRESSOR GIVEN X2 WITH NO EFFECT. NEW ORDER FOR RYTHMOL 150 MG Q8H PO. MD AT BEDSIDE THIS AM. DECISION FOR CARDIOVERSION. DONE SUCCESSFULLY AT BEDSIDE, CONVERTED TO NSR, HR 80s.
[2020-11-21 07:25] LABS: Ferritin 634 ng/mL (10-250)
[2020-11-21 07:41] LABS: Glucose, Whole Blood 157 mg/dL (60-115)
[2020-11-21] MEDS: 0.9 % Sodium Chloride Flush 3 ML SYRINGE IVFLUSH ×2 (07:55→17:43)
[2020-11-21] MEDS: Cholecalciferol (Vitamin D3) 25 MCG TABLET 50 MCG PO (07:56)
[2020-11-21] MEDS: Chlorhexidine Gluc Oral Rinse 15 ML MOUTHWASH BUCCAL ×3 (07:56→20:18)
[2020-11-21] MEDS: Apixaban 5 MG TABLET PO ×2 (07:56→20:18)
[2020-11-21] MEDS: Ascorbic Acid 500 MG TABLET PO ×2 (07:57→20:18)
[2020-11-21] MEDS: dexAMETHasone 6 MG TABLET PO (07:57)
[2020-11-21] MEDS: Metoprolol Tartrate 25 MG TABLET 75 MG PO (09:08)
[2020-11-21] MEDS: Nystatin Powder 15 GM BOTTLE 1 APPL TOPICAL ×2 (09:10→20:19)
[2020-11-21] MEDS: propofoL 1,000 MG/100 ML VIAL 22.45 MG IVCONT ×4 (09:11→21:45)
[2020-11-21 09:13] LABS: Venous Blood Gas Refer to POC result
[2020-11-21 10:26] LABS: Glucose, Whole Blood 198 mg/dL (60-115)
[2020-11-21 10:26] LABS: Glucose, Whole Blood 200 mg/dL (60-115)
--- NOTE | 2020-11-21 10:33 | MHC.CLN ---
F/U PT RECEIVING GLUCERNA AT MAX GOAL 50CC/HR WITH 30CC PROSOURCE BID AND 120CC FREE WATER FLUSHES Q 4HRS PROVIDES 1320KCALS (1912 WITH SEDATION; 32KCALS/KG), 80G PROTEIN (1.4G/KG), 1744CC TOTAL WATER FROM FORMULA AND FLUSH MONITOR TOLERANCE, RESIDUALS AND LYTES
--- NOTE | 2020-11-21 11:05 | PM.CCPN ---
Subjective Subjective Date of Service: 11/21/20 Interval History: 65-year-old female with bilateral COVID-19 pneumonia and acute on chronic hypoxemic and hypercapnic respiratory failure related to ARDS and after 10 days ultimately requiring intubation current FiO2 60% with oxygen saturation 93% and nearly morning hours oxygen saturation began to slowly fall and the patient had been in in atrial flutter with rates of 130-140 and was becoming insensitive to the addition of metoprolol to the IV Cardizem drip and we therefore knowing that she has significant diastolic dysfunction went ahead and emergently cardioverted utilizing 75 joules on the biphasic device x1 without complication restoring normal sinus rhythm and this was in a synchronized mode under increased sedation and it went beautifully with that her oxygen saturations began to come up and she remains now on minimal amounts of just propofol Physical Exam Vital Signs: Vital Signs: Last Vital Signs Temp 98.2 F 11/21/20 10:00 Pulse 80 11/21/20 10:00 Resp 16 11/21/20 10:00 BP 131/63 11/21/20 10:00 Pulse Ox 93 11/21/20 10:00 Body Mass Index 53.2 Const: Other: She is arousable and appropriate and follows commands so cognitive function is preserved Cardiac exam now in normal sinus rhythm with CVP of 1-2 an adequate urine output stable renal function and electrolytes and good bilateral carotid upstrokes Chest without significant adventitious sounds no accessory muscle use or diaphragm effort Tolerating feedings with good bowel sounds soft abdomen no organomegaly Skin with healing pressure sore overlying buttock midline Objective Data Labs CBC & Chem 7: 11/21/20 05:38 11/21/20 05:38 Labs: Laboratory Results - last 24 hr 11/20/20 11/20/20 11/20/20 11:00 11:21 11:53 WBC RBC Hgb Hct MCV MCH MCHC RDW Plt Count MPV Immature Gran % (Auto) Neut % (Auto) Lymph % (Auto) [place] % (Auto) Eos % (Auto) Baso % (Auto) Lymph # (Auto) [place] # (Auto) Eos # (Auto) Baso # (Auto) Abs Immat Gran (auto) Absolute Neuts (auto) Absolute Nucleated RBC Nucleated RBC % (auto) PT INR APTT D-Dimer VBG pH VBG pCO2 VBG pO2 VBG HCO3 VBG O2 Saturation VBG Base Excess Sodium Potassium Chloride Carbon Dioxide Anion Gap BUN Creatinine Estim Creat Clear Calc Estimated GFR POC Glucose 223 H 228 H Random Glucose Calcium Phosphorus Magnesium Ferritin Total Bilirubin Direct Bilirubin AST ALT Alkaline Phosphatase Lactate Dehydrogenase Total Creatine Kinase C-Reactive Protein B-Natriuretic Peptide 56 Total Protein Albumin 11/20/20 11/20/20 11/20/20 12:53 13:48 14:56 WBC RBC Hgb Hct MCV MCH MCHC RDW Plt Count MPV Immature Gran % (Auto) Neut % (Auto) Lymph % (Auto) [place] % (Auto) Eos % (Auto) Baso % (Auto) Lymph # (Auto) [place] # (Auto) Eos # (Auto) Baso # (Auto) Abs Immat Gran (auto) Absolute Neuts (auto) Absolute Nucleated RBC Nucleated RBC % (auto) PT INR APTT D-Dimer VBG pH VBG pCO2 VBG pO2 VBG HCO3 VBG O2 Saturation VBG Base Excess Sodium Potassium Chloride Carbon Dioxide Anion Gap BUN Creatinine Estim Creat Clear Calc Estimated GFR POC Glucose 205 H 224 H 240 H Random Glucose Calcium Phosphorus Magnesium Ferritin Total Bilirubin Direct Bilirubin AST ALT Alkaline Phosphatase Lactate Dehydrogenase Total Creatine Kinase C-Reactive Protein B-Natriuretic Peptide Total Protein Albumin 11/20/20 11/20/20 11/20/20 15:53 16:54 17:59 WBC RBC Hgb Hct MCV MCH MCHC RDW Plt Count MPV Immature Gran % (Auto) Neut % (Auto) Lymph % (Auto) [place] % (Auto) Eos % (Auto) Baso % (Auto) Lymph # (Auto) [place] # (Auto) Eos # (Auto) Baso # (Auto) Abs Immat Gran (auto) Absolute Neuts (auto) Absolute Nucleated RBC Nucleated RBC % (auto) PT INR APTT D-Dimer VBG pH VBG pCO2 VBG pO2 VBG HCO3 VBG O2 Saturation VBG Base Excess Sodium Potassium Chloride Carbon Dioxide Anion Gap BUN Creatinine Estim Creat Clear Calc Estimated GFR POC Glucose 227 H 203 H 204 H Random Glucose Calcium Phosphorus Magnesium Ferritin Total Bilirubin Direct Bilirubin AST ALT Alkaline Phosphatase Lactate Dehydrogenase Total Creatine Kinase C-Reactive Protein B-Natriuretic Peptide Total Protein Albumin 11/20/20 11/20/20 11/20/20 20:37 22:01 23:43 WBC RBC Hgb Hct MCV MCH MCHC RDW Plt Count MPV Immature Gran % (Auto) Neut % (Auto) Lymph % (Auto) [place] % (Auto) Eos % (Auto) Baso % (Auto) Lymph # (Auto) [place] # (Auto) Eos # (Auto) Baso # (Auto) Abs Immat Gran (auto) Absolute Neuts (auto) Absolute Nucleated RBC Nucleated RBC % (auto) PT INR APTT D-Dimer VBG pH VBG pCO2 VBG pO2 VBG HCO3 VBG O2 Saturation VBG Base Excess Sodium Potassium Chloride Carbon Dioxide Anion Gap BUN Creatinine Estim Creat Clear Calc Estimated GFR POC Glucose 202 H 193 H 210 H Random Glucose Calcium Phosphorus Magnesium Ferritin Total Bilirubin Direct Bilirubin AST ALT Alkaline Phosphatase Lactate Dehydrogenase Total Creatine Kinase C-Reactive Protein B-Natriuretic Peptide Total Protein Albumin 11/21/20 11/21/20 11/21/20 02:11 04:01 05:38 WBC RBC Hgb Hct MCV MCH MCHC RDW Plt Count MPV Immature Gran % (Auto) Neut % (Auto) Lymph % (Auto) [place] % (Auto) Eos % (Auto) Baso % (Auto) Lymph # (Auto) [place] # (Auto) Eos # (Auto) Baso # (Auto) Abs Immat Gran (auto) Absolute Neuts (auto) Absolute Nucleated RBC Nucleated RBC % (auto) PT 15.0 H INR 1.3 H APTT 35.9 D-Dimer 1874 VBG pH VBG pCO2 VBG pO2 VBG HCO3 VBG O2 Saturation VBG Base Excess Sodium Potassium Chloride Carbon Dioxide Anion Gap BUN Creatinine Estim Creat Clear Calc Estimated GFR POC Glucose 155 H 157 H Random Glucose Calcium Phosphorus Magnesium Ferritin Total Bilirubin Direct Bilirubin AST ALT Alkaline Phosphatase Lactate Dehydrogenase Total Creatine Kinase C-Reactive Protein B-Natriuretic Peptide Total Protein Albumin 11/21/20 11/21/20 11/21/20 05:38 05:38 05:38 WBC 10.7 RBC 5.01 Hgb 12.7 Hct 40.1 MCV 80.0 MCH 25.3 L MCHC 31.7 RDW 16.6 H Plt Count 163 MPV 10.4 Immature Gran % (Auto) 3.1 H Neut % (Auto) 83.1 H Lymph % (Auto) 9.2 L [place] % (Auto) 3.5 Eos % (Auto) 0.9 Baso % (Auto) 0.2 Lymph # (Auto) 1.0 L [place] # (Auto) 0.4 Eos # (Auto) 0.1 Baso # (Auto) 0.0 Abs Immat Gran (auto) 0.33 H Absolute Neuts (auto) 8.9 H Absolute Nucleated RBC 0.000 Nucleated RBC % (auto) 0.0 PT INR APTT D-Dimer VBG pH VBG pCO2 VBG pO2 VBG HCO3 VBG O2 Saturation VBG Base Excess Sodium 137 Potassium 4.6 Chloride 98 Carbon Dioxide 26 Anion Gap 18 BUN 71 H Creatinine 0.98 Estim Creat Clear Calc 83.9 Estimated GFR 57 POC Glucose Random Glucose 187 H Calcium 8.3 L Phosphorus 4.2 Magnesium 2.5 Ferritin 634 H Total Bilirubin 0.8 Direct Bilirubin 0.5 AST 31 ALT 22 Alkaline Phosphatase 111 Lactate Dehydrogenase 500 H Total Creatine Kinase 83 C-Reactive Protein 8.03 H B-Natriuretic Peptide 115 H Total Protein 6.7 Albumin 2.8 L 11/21/20 11/21/20 11/21/20 05:52 08:06 10:11 WBC RBC Hgb Hct MCV MCH MCHC RDW Plt Count MPV Immature Gran % (Auto) Neut % (Auto) Lymph % (Auto) [place] % (Auto) Eos % (Auto) Baso % (Auto) Lymph # (Auto) [place] # (Auto) Eos # (Auto) Baso # (Auto) Abs Immat Gran (auto) Absolute Neuts (auto) Absolute Nucleated RBC Nucleated RBC % (auto) PT INR APTT D-Dimer VBG pH 7.42 VBG pCO2 40 VBG pO2 60 VBG HCO3 26 VBG O2 Saturation 88.0 VBG Base Excess 2.0 Sodium Potassium Chloride Carbon Dioxide Anion Gap BUN Creatinine Estim Creat Clear Calc Estimated GFR POC Glucose 200 H 198 H Random Glucose Calcium Phosphorus Magnesium Ferritin Total Bilirubin Direct Bilirubin AST ALT Alkaline Phosphatase Lactate Dehydrogenase Total Creatine Kinase C-Reactive Protein B-Natriuretic Peptide Total Protein Albumin Microbiology Microbiology Results: Microbiology 11/09/20 19:57 Blood - Venous Blood Culture - Final Coag negative Staphylococcus 11/09/20 20:54 Blood - Venous Blood Culture - Final No growth after 5 days. Progress Note: A&P Assessment and plan (1) Pressure injury of buttock, stage 2: Problem details: Pt with some shear injury it seems to buttocks bilaterally now intubated and treating for Covid. cont with barrier cream to the area and foam dressing, cont to offload and rotate and reposition every 30 min to one hour and special air mattress etc. careful with moving pt in regards to dragging across sheet. Status: Acute (2) Pneumonia due to 2019-nCoV: Problem details: She has COVID She has oxygen dependency and rather unremarkable liver and kidney tests Status: Acute (3) Hypoxia: Status: Acute (4) Pneumonia due to COVID-19 virus: Status: Acute (5) Type 2 diabetes mellitus with chronic kidney disease: Status: Acute (6) Chronic heart failure with preserved ejection fraction (HFpEF): Status: Acute (7) Right heart failure (secondary to left heart failure): Status: Acute (8) Respiratory failure with hypoxia and hypercapnia: Status: Acute (9) Paroxysmal atrial fibrillation: Status: Acute (10) CAD (coronary artery disease): Problem details: KAREN to LCx for ACS,10/02. Status: Acute (11) Mitral regurgitation: Status: Acute (12) MOISÉS (obstructive sleep apnea): Status: Acute (13) Morbid obesity due to excess calories: Status: Acute (14) Type 2 diabetes mellitus with hyperglycemia, with long-term current use of insulin: Status: Acute (15) Type 2 diabetes mellitus with diabetic polyneuropathy: Status: Acute (16) Hyperlipidemia LDL goal <70: Status: Acute (17) Essential hypertension: Status: Acute (18) Degenerative arthritis of knee, bilateral: Status: Acute Assessment and Plan: So the plan is to support on the ventilator following CVP continuing feedings and adding propafenone at 150 mg Q 8 hourly as prophylaxis against recurrent AFib Time Spent With Patient Time: Total time spent is greater than 50% in coordination of care (as documented) at patient's floor/unit and/or counseling patient: Total time spent with greater than 50% in coordination of care (as documented) at patient's floor/unit and/or counseling patient:: 45
[2020-11-21 12:36] LABS: Glucose, Whole Blood 215 mg/dL (60-115)
[2020-11-21 14:27] LABS: Glucose, Whole Blood 275 mg/dL (60-115)
[2020-11-21 15:25] LABS: Glucose, Whole Blood 275 mg/dL (60-115)
--- NOTE | 2020-11-21 15:45 | PC.NURSE ---
Pt continues on propofol for sedation, decreased this am, pt currently easily arousable but synchornus with vent, restraints remain for patient safety cardizem drip titrated off this am per MD, received scheduled lopressor, continues in a SR, HR trending 80s-90s continues on ac settings, copious amounts of oral secretions suctioned, frequent mouth care provided gates output with 800ml of urine out continues on glucerna, tolerating well, residuals 5-10/ continues on insulin drip and titrated per propofol daughter (carl) updated by this RN
[2020-11-21 16:25] LABS: Glucose, Whole Blood 282 mg/dL (60-115)
[2020-11-21 17:26] LABS: Glucose, Whole Blood 271 mg/dL (60-115)
[2020-11-21] MEDS: Insulin Regular/NS 100 UNIT/100 ML PLAST..BAG 9 UNIT IVCONT (17:30)
[2020-11-21 19:00] LABS: Glucose, Whole Blood 278 mg/dL (60-115)
[2020-11-21 20:29] LABS: Glucose, Whole Blood 246 mg/dL (60-115)
[2020-11-21 21:21] LABS: Glucose, Whole Blood 234 mg/dL (60-115)
[2020-11-21 22:14] LABS: Glucose, Whole Blood 197 mg/dL (60-115)
[2020-11-22] VITALS (32 sets, daily range): BP systolic 101–151; BP diastolic 37–68; PULSE 72–101; RESP 16–21; TEMP 37–38; O2SAT 89–98
[2020-11-22] MEDS: 0.9 % Sodium Chloride Flush 3 ML SYRINGE IVFLUSH ×3 (00:20→15:43)
[2020-11-22 00:43] LABS: Glucose, Whole Blood 163 mg/dL (60-115)
[2020-11-22 00:43] LABS: Glucose, Whole Blood 150 mg/dL (60-115)
[2020-11-22] MEDS: propofoL 1,000 MG/100 ML VIAL 22.45 MG IVCONT ×2 (01:36→05:38)
[2020-11-22 02:53] LABS: Glucose, Whole Blood 143 mg/dL (60-115)
[2020-11-22 03:12] LABS: Glucose, Whole Blood 139 mg/dL (60-115)
[2020-11-22 04:27] LABS: Glucose, Whole Blood 128 mg/dL (60-115)
[2020-11-22 05:24] LABS: MANUAL DIFF FLAG NO
[2020-11-22 05:25] LABS: Basophils Percent Auto 0.2 % (0-2); Eosinophils Percent Auto 0.2 % (0-4); Hematocrit 38.7 % (37-47); Hemoglobin 12.4 g/dl (12.0-16.0); Imm Gran Abs Auto 0.29 X10*3/uL (0.00-0.03); Imm Gran Pct Auto 2.2 % (0.0-0.4); Lymphocytes Absolute Auto 0.8 X10*3/uL (1.2-4.9); Mean Corpuscular Hemoglobin 25.6 pg (27.0-33.0); Mean Platelet Volume 9.9 fL (9.4-12.3); Monocytes Absolute Auto 0.3 X10*3/uL (0.1-1.2); Monocytes Percent Auto 2.3 % (2-11); Neutrophils Absolute Auto 11.9 X10*3/uL (2.0-8.3); Neutrophils Percent Auto 89.1 % (45-73); Platelet Count 147 X10*3/uL (160-400); Red Blood Count 4.84 X10*6/uL (4.20-5.50); Red Cell Distribution Width 16.5 % (11.0-16.0); White Blood Count 13.3 X10*3/uL (4.8-10.8)
[2020-11-22 05:30] LABS: VBG Base Excess 1.3 mmol/L; VBG HCO3 25 mmol/L (22-26); VBG pCO2 38 mmHg; VBG pH 7.42 (7.32-7.43); VBG pO2 54 mmHg
[2020-11-22 05:34] LABS: Venous Blood Gas Refer to POC result
[2020-11-22 05:35] LABS: INTERNATIONAL NORM RATIO 1.4 (0.9-1.1); Prothrombin Time 16.2 SEC (10.8-13.0)
[2020-11-22 05:37] LABS: D Dimer 1045 NG/ML; Partial Thromboplastin Time 34.9 SEC (24.1-38.0)
[2020-11-22 05:58] LABS: Alanine Aminotransferase 21 U/L (0-31); Albumin Level 2.7 g/dL (3.5-5.0); Alkaline Phosphatase 104 U/L (39-117); Anion Gap 13 (12-20); Aspartate Amino Transferase 30 U/L (5-31); Bilirubin Direct 0.5 mg/dL (0.0-0.5); Bilirubin Total 0.8 mg/dL (0.0-1.0); Blood Urea Nitrogen 52 mg/dL (9-16); C Reactive Protein 6.57 mg/dL (< or = 0.50); Calcium 8.3 mg/dL (8.4-10.2); Carbon Dioxide 29 mmol/L (22-29); Chloride 103 mmol/L (96-108); Creatinine Clr Calc Pharmacy 96.7; Estimated Glomerular Filt Rate > 60; Glucose Random 179 mg/dL (60-115); Lactate Dehydrogenase 454 U/L (122-220); Magnesium 2.3 mg/dL (1.6-2.6); Phosphorus 3.8 mg/dL (2.7-4.5); Potassium 4.6 mmol/L (3.3-5.1); Sodium 140 mmol/L (135-145); Total Protein 6.6 g/dL (6.5-8.0)
[2020-11-22 06:00] LABS: B Type Natriuretic Peptide 91 pg/mL (<100)
[2020-11-22] MEDS: Pantoprazole Sodium 40 MG/10 ML VIAL IVPUSH (06:12)
[2020-11-22 06:18] LABS: Ferritin 542 ng/mL (10-250)
[2020-11-22 06:43] LABS: Glucose, Whole Blood 125 mg/dL (60-115)
[2020-11-22 06:55] LABS: Glucose, Whole Blood 131 mg/dL (60-115)
[2020-11-22 08:01] LABS: Glucose, Whole Blood 163 mg/dL (60-115)
[2020-11-22] MEDS: Metoprolol Tartrate 25 MG TABLET 75 MG PO (08:04)
[2020-11-22] MEDS: Chlorhexidine Gluc Oral Rinse 15 ML MOUTHWASH BUCCAL ×3 (08:04→21:27)
[2020-11-22] MEDS: Apixaban 5 MG TABLET PO ×2 (08:05→21:27)
[2020-11-22] MEDS: dexAMETHasone 6 MG TABLET PO (08:05)
[2020-11-22] MEDS: Ascorbic Acid 500 MG TABLET PO ×2 (08:05→21:27)
[2020-11-22] MEDS: Cholecalciferol (Vitamin D3) 25 MCG TABLET 50 MCG PO (08:05)
[2020-11-22] MEDS: Piperacillin Sodium/Tazobactam 4.5 GM in 0.9 % Sodium Chloride 100 ML IV ×3 (08:06→18:20)
[2020-11-22] MEDS: vancomycin HCL 1,000 MG in 0.9 % Sodium Chloride 250 ML 270 MG IV (08:06)
[2020-11-22] MEDS: propofoL 1,000 MG/100 ML VIAL 26.94 MG IVCONT ×5 (08:06→21:27)
[2020-11-22] MEDS: Insulin Regular/NS 100 UNIT/100 ML PLAST..BAG IVCONT ×2 (08:07→23:48)
[2020-11-22 08:57] LABS: Glucose, Whole Blood 160 mg/dL (60-115)
[2020-11-22] MEDS: Nystatin Powder 15 GM BOTTLE 1 APPL TOPICAL ×2 (09:29→23:36)
[2020-11-22 09:52] LABS: Glucose, Whole Blood 164 mg/dL (60-115)
[2020-11-22] MEDS: Lactated Ringers 500 ML 999 ML IV (11:00)
--- NOTE | 2020-11-22 11:07 | PM.CCPN ---
Subjective Subjective Date of Service: 11/22/20 Interval History: Has low-grade temperature of a 100.4? and nursing indicated that they have increased secretions that this suctioning so we sent off sputum culture covered thus far with 1 dose of vancomycin and Zosyn for nosocomial infection and minute ventilation still reviewed and remains at a little over 12 liters/minute FiO2 remains at 60% and she remains comfortable and quiet and remains arousable with cognitive function on low doses of propofol so at this point we will just give intermittent fluid boluses for blood pressure support if she falls below mean arterial pressure of 70 Physical Exam Vital Signs: Vital Signs: Last Vital Signs Temp 100.4 F 11/22/20 10:00 Pulse 90 11/22/20 10:00 Resp 16 11/22/20 10:00 BP 109/52 L 11/22/20 10:00 Pulse Ox 93 11/22/20 10:00 Body Mass Index 53.2 Const: Other: Has cognitive function if awakened capable of moving all 4 extremities Mean arterial pressure averaging at 70 CVP averaging at 5 normal sinus rhythm no gallops no significant murmurs Chest with coarse ventilatory sounds Abdomen tolerating feedings with with no residuals belly soft positive bowel sounds no organomegaly Skin still have persistent second-degree decubitus overlying buttock which is being treated locally Objective Data Labs CBC & Chem 7: 11/22/20 05:13 11/22/20 05:13 Labs: Laboratory Results - last 24 hr 11/21/20 11/21/20 11/21/20 12:30 14:12 15:22 WBC RBC Hgb Hct MCV MCH MCHC RDW Plt Count MPV Immature Gran % (Auto) Neut % (Auto) Lymph % (Auto) [place] % (Auto) Eos % (Auto) Baso % (Auto) Lymph # (Auto) [place] # (Auto) Eos # (Auto) Baso # (Auto) Abs Immat Gran (auto) Absolute Neuts (auto) Absolute Nucleated RBC Nucleated RBC % (auto) PT INR APTT D-Dimer VBG pH VBG pCO2 VBG pO2 VBG HCO3 VBG O2 Saturation VBG Base Excess Sodium Potassium Chloride Carbon Dioxide Anion Gap BUN Creatinine Estim Creat Clear Calc Estimated GFR POC Glucose 215 H 275 H 275 H Random Glucose Calcium Phosphorus Magnesium Ferritin Total Bilirubin Direct Bilirubin AST ALT Alkaline Phosphatase Lactate Dehydrogenase Total Creatine Kinase C-Reactive Protein B-Natriuretic Peptide Total Protein Albumin 11/21/20 11/21/20 11/21/20 16:21 17:23 18:56 WBC RBC Hgb Hct MCV MCH MCHC RDW Plt Count MPV Immature Gran % (Auto) Neut % (Auto) Lymph % (Auto) [place] % (Auto) Eos % (Auto) Baso % (Auto) Lymph # (Auto) [place] # (Auto) Eos # (Auto) Baso # (Auto) Abs Immat Gran (auto) Absolute Neuts (auto) Absolute Nucleated RBC Nucleated RBC % (auto) PT INR APTT D-Dimer VBG pH VBG pCO2 VBG pO2 VBG HCO3 VBG O2 Saturation VBG Base Excess Sodium Potassium Chloride Carbon Dioxide Anion Gap BUN Creatinine Estim Creat Clear Calc Estimated GFR POC Glucose 282 H 271 H 278 H Random Glucose Calcium Phosphorus Magnesium Ferritin Total Bilirubin Direct Bilirubin AST ALT Alkaline Phosphatase Lactate Dehydrogenase Total Creatine Kinase C-Reactive Protein B-Natriuretic Peptide Total Protein Albumin 11/21/20 11/21/20 11/21/20 20:26 21:16 22:10 WBC RBC Hgb Hct MCV MCH MCHC RDW Plt Count MPV Immature Gran % (Auto) Neut % (Auto) Lymph % (Auto) [place] % (Auto) Eos % (Auto) Baso % (Auto) Lymph # (Auto) [place] # (Auto) Eos # (Auto) Baso # (Auto) Abs Immat Gran (auto) Absolute Neuts (auto) Absolute Nucleated RBC Nucleated RBC % (auto) PT INR APTT D-Dimer VBG pH VBG pCO2 VBG pO2 VBG HCO3 VBG O2 Saturation VBG Base Excess Sodium Potassium Chloride Carbon Dioxide Anion Gap BUN Creatinine Estim Creat Clear Calc Estimated GFR POC Glucose 246 H 234 H 197 H Random Glucose Calcium Phosphorus Magnesium Ferritin Total Bilirubin Direct Bilirubin AST ALT Alkaline Phosphatase Lactate Dehydrogenase Total Creatine Kinase C-Reactive Protein B-Natriuretic Peptide Total Protein Albumin 11/21/20 11/22/20 11/22/20 23:23 00:27 01:26 WBC RBC Hgb Hct MCV MCH MCHC RDW Plt Count MPV Immature Gran % (Auto) Neut % (Auto) Lymph % (Auto) [place] % (Auto) Eos % (Auto) Baso % (Auto) Lymph # (Auto) [place] # (Auto) Eos # (Auto) Baso # (Auto) Abs Immat Gran (auto) Absolute Neuts (auto) Absolute Nucleated RBC Nucleated RBC % (auto) PT INR APTT D-Dimer VBG pH VBG pCO2 VBG pO2 VBG HCO3 VBG O2 Saturation VBG Base Excess Sodium Potassium Chloride Carbon Dioxide Anion Gap BUN Creatinine Estim Creat Clear Calc Estimated GFR POC Glucose 163 H 150 H 143 H Random Glucose Calcium Phosphorus Magnesium Ferritin Total Bilirubin Direct Bilirubin AST ALT Alkaline Phosphatase Lactate Dehydrogenase Total Creatine Kinase C-Reactive Protein B-Natriuretic Peptide Total Protein Albumin 11/22/20 11/22/20 11/22/20 03:07 04:15 05:13 WBC RBC Hgb Hct MCV MCH MCHC RDW Plt Count MPV Immature Gran % (Auto) Neut % (Auto) Lymph % (Auto) [place] % (Auto) Eos % (Auto) Baso % (Auto) Lymph # (Auto) [place] # (Auto) Eos # (Auto) Baso # (Auto) Abs Immat Gran (auto) Absolute Neuts (auto) Absolute Nucleated RBC Nucleated RBC % (auto) PT 16.2 H INR 1.4 H APTT 34.9 D-Dimer 1045 VBG pH VBG pCO2 VBG pO2 VBG HCO3 VBG O2 Saturation VBG Base Excess Sodium Potassium Chloride Carbon Dioxide Anion Gap BUN Creatinine Estim Creat Clear Calc Estimated GFR POC Glucose 139 H 128 H Random Glucose Calcium Phosphorus Magnesium Ferritin Total Bilirubin Direct Bilirubin AST ALT Alkaline Phosphatase Lactate Dehydrogenase Total Creatine Kinase C-Reactive Protein B-Natriuretic Peptide Total Protein Albumin 11/22/20 11/22/20 11/22/20 05:13 05:13 05:13 WBC 13.3 H RBC 4.84 Hgb 12.4 Hct 38.7 MCV 80.0 MCH 25.6 L MCHC 32.0 RDW 16.5 H Plt Count 147 L MPV 9.9 Immature Gran % (Auto) 2.2 H Neut % (Auto) 89.1 H Lymph % (Auto) 6.0 L [place] % (Auto) 2.3 Eos % (Auto) 0.2 Baso % (Auto) 0.2 Lymph # (Auto) 0.8 L [place] # (Auto) 0.3 Eos # (Auto) 0.0 Baso # (Auto) 0.0 Abs Immat Gran (auto) 0.29 H Absolute Neuts (auto) 11.9 H Absolute Nucleated RBC 0.000 Nucleated RBC % (auto) 0.0 PT INR APTT D-Dimer VBG pH VBG pCO2 VBG pO2 VBG HCO3 VBG O2 Saturation VBG Base Excess Sodium 140 Potassium 4.6 Chloride 103 Carbon Dioxide 29 Anion Gap 13 BUN 52 H Creatinine 0.85 Estim Creat Clear Calc 96.7 Estimated GFR > 60 POC Glucose Random Glucose 179 H Calcium 8.3 L Phosphorus 3.8 Magnesium 2.3 Ferritin 542 H Total Bilirubin 0.8 Direct Bilirubin 0.5 AST 30 ALT 21 Alkaline Phosphatase 104 Lactate Dehydrogenase 454 H Total Creatine Kinase 105 C-Reactive Protein 6.57 H B-Natriuretic Peptide 91 Total Protein 6.6 Albumin 2.7 L 11/22/20 11/22/20 11/22/20 05:22 06:26 06:50 WBC RBC Hgb Hct MCV MCH MCHC RDW Plt Count MPV Immature Gran % (Auto) Neut % (Auto) Lymph % (Auto) [place] % (Auto) Eos % (Auto) Baso % (Auto) Lymph # (Auto) [place] # (Auto) Eos # (Auto) Baso # (Auto) Abs Immat Gran (auto) Absolute Neuts (auto) Absolute Nucleated RBC Nucleated RBC % (auto) PT INR APTT D-Dimer VBG pH 7.42 VBG pCO2 38 VBG pO2 54 VBG HCO3 25 VBG O2 Saturation 84.0 VBG Base Excess 1.3 Sodium Potassium Chloride Carbon Dioxide Anion Gap BUN Creatinine Estim Creat Clear Calc Estimated GFR POC Glucose 125 H 131 H Random Glucose Calcium Phosphorus Magnesium Ferritin Total Bilirubin Direct Bilirubin AST ALT Alkaline Phosphatase Lactate Dehydrogenase Total Creatine Kinase C-Reactive Protein B-Natriuretic Peptide Total Protein Albumin 11/22/20 11/22/20 11/22/20 07:54 08:51 09:46 WBC RBC Hgb Hct MCV MCH MCHC RDW Plt Count MPV Immature Gran % (Auto) Neut % (Auto) Lymph % (Auto) [place] % (Auto) Eos % (Auto) Baso % (Auto) Lymph # (Auto) [place] # (Auto) Eos # (Auto) Baso # (Auto) Abs Immat Gran (auto) Absolute Neuts (auto) Absolute Nucleated RBC Nucleated RBC % (auto) PT INR APTT D-Dimer VBG pH VBG pCO2 VBG pO2 VBG HCO3 VBG O2 Saturation VBG Base Excess Sodium Potassium Chloride Carbon Dioxide Anion Gap BUN Creatinine Estim Creat Clear Calc Estimated GFR POC Glucose 163 H 160 H 164 H Random Glucose Calcium Phosphorus Magnesium Ferritin Total Bilirubin Direct Bilirubin AST ALT Alkaline Phosphatase Lactate Dehydrogenase Total Creatine Kinase C-Reactive Protein B-Natriuretic Peptide Total Protein Albumin Microbiology Microbiology Results: Microbiology 11/09/20 19:57 Blood - Venous Blood Culture - Final Coag negative Staphylococcus 11/09/20 20:54 Blood - Venous Blood Culture - Final No growth after 5 days. Progress Note: A&P Assessment and plan (1) Pressure injury of buttock, stage 2: Problem details: Pt with some shear injury it seems to buttocks bilaterally now intubated and treating for Covid. cont with barrier cream to the area and foam dressing, cont to offload and rotate and reposition every 30 min to one hour and special air mattress etc. careful with moving pt in regards to dragging across sheet. Status: Acute (2) Pneumonia due to 2019-nCoV: Problem details: She has COVID She has oxygen dependency and rather unremarkable liver and kidney tests Status: Acute (3) Hypoxia: Status: Acute (4) Pneumonia due to COVID-19 virus: Status: Acute (5) Type 2 diabetes mellitus with chronic kidney disease: Status: Acute (6) Chronic heart failure with preserved ejection fraction (HFpEF): Status: Acute (7) Right heart failure (secondary to left heart failure): Status: Acute (8) Respiratory failure with hypoxia and hypercapnia: Status: Acute (9) Paroxysmal atrial fibrillation: Status: Acute (10) CAD (coronary artery disease): Problem details: KAREN to LCx for ACS,10/02. Status: Acute (11) Mitral regurgitation: Status: Acute (12) MOISÉS (obstructive sleep apnea): Status: Acute (13) Morbid obesity due to excess calories: Status: Acute (14) Type 2 diabetes mellitus with hyperglycemia, with long-term current use of insulin: Status: Acute (15) Type 2 diabetes mellitus with diabetic polyneuropathy: Status: Acute (16) Hyperlipidemia LDL goal <70: Status: Acute (17) Essential hypertension: Status: Acute (18) Degenerative arthritis of knee, bilateral: Status: Acute Assessment and Plan: Will check Gram stain results and if there is significant polys and and really not towards a predominance of either Gram-positive or Gram-negative organism I will treat with antibiotics accordingly continue to support CVP and blood pressure with volume and if required probably would start a low-dose of vasopressin to try to ensure maintenance of renal perfusion Time Spent With Patient Time: Total time spent is greater than 50% in coordination of care (as documented) at patient's floor/unit and/or counseling patient: Total time spent with greater than 50% in coordination of care (as documented) at patient's floor/unit and/or counseling patient:: 35
[2020-11-22 11:52] LABS: Glucose, Whole Blood 164 mg/dL (60-115)
[2020-11-22 11:53] LABS: Glucose, Whole Blood 186 mg/dL (60-115)
[2020-11-22 13:09] LABS: Glucose, Whole Blood 231 mg/dL (60-115)
--- NOTE | 2020-11-22 13:50 | PM.IDPN ---
Subjective Subjective Date of Service: 12/04/20 Interval History: he has had some fever Objective Data Labs CBC & Chem 7: 12/03/20 05:30 12/03/20 05:30 Labs: Laboratory Results - last 24 hr 11/21/20 11/21/20 11/21/20 14:12 15:22 16:21 WBC RBC Hgb Hct MCV MCH MCHC RDW Plt Count MPV Immature Gran % (Auto) Neut % (Auto) Lymph % (Auto) [place] % (Auto) Eos % (Auto) Baso % (Auto) Lymph # (Auto) [place] # (Auto) Eos # (Auto) Baso # (Auto) Abs Immat Gran (auto) Absolute Neuts (auto) Absolute Nucleated RBC Nucleated RBC % (auto) PT INR APTT D-Dimer VBG pH VBG pCO2 VBG pO2 VBG HCO3 VBG O2 Saturation VBG Base Excess Sodium Potassium Chloride Carbon Dioxide Anion Gap BUN Creatinine Estim Creat Clear Calc Estimated GFR POC Glucose 275 H 275 H 282 H Random Glucose Calcium Phosphorus Magnesium Ferritin Total Bilirubin Direct Bilirubin AST ALT Alkaline Phosphatase Lactate Dehydrogenase Total Creatine Kinase C-Reactive Protein B-Natriuretic Peptide Total Protein Albumin 11/21/20 11/21/20 11/21/20 17:23 18:56 20:26 WBC RBC Hgb Hct MCV MCH MCHC RDW Plt Count MPV Immature Gran % (Auto) Neut % (Auto) Lymph % (Auto) [place] % (Auto) Eos % (Auto) Baso % (Auto) Lymph # (Auto) [place] # (Auto) Eos # (Auto) Baso # (Auto) Abs Immat Gran (auto) Absolute Neuts (auto) Absolute Nucleated RBC Nucleated RBC % (auto) PT INR APTT D-Dimer VBG pH VBG pCO2 VBG pO2 VBG HCO3 VBG O2 Saturation VBG Base Excess Sodium Potassium Chloride Carbon Dioxide Anion Gap BUN Creatinine Estim Creat Clear Calc Estimated GFR POC Glucose 271 H 278 H 246 H Random Glucose Calcium Phosphorus Magnesium Ferritin Total Bilirubin Direct Bilirubin AST ALT Alkaline Phosphatase Lactate Dehydrogenase Total Creatine Kinase C-Reactive Protein B-Natriuretic Peptide Total Protein Albumin 11/21/20 11/21/20 11/21/20 21:16 22:10 23:23 WBC RBC Hgb Hct MCV MCH MCHC RDW Plt Count MPV Immature Gran % (Auto) Neut % (Auto) Lymph % (Auto) [place] % (Auto) Eos % (Auto) Baso % (Auto) Lymph # (Auto) [place] # (Auto) Eos # (Auto) Baso # (Auto) Abs Immat Gran (auto) Absolute Neuts (auto) Absolute Nucleated RBC Nucleated RBC % (auto) PT INR APTT D-Dimer VBG pH VBG pCO2 VBG pO2 VBG HCO3 VBG O2 Saturation VBG Base Excess Sodium Potassium Chloride Carbon Dioxide Anion Gap BUN Creatinine Estim Creat Clear Calc Estimated GFR POC Glucose 234 H 197 H 163 H Random Glucose Calcium Phosphorus Magnesium Ferritin Total Bilirubin Direct Bilirubin AST ALT Alkaline Phosphatase Lactate Dehydrogenase Total Creatine Kinase C-Reactive Protein B-Natriuretic Peptide Total Protein Albumin 11/22/20 11/22/20 11/22/20 00:27 01:26 03:07 WBC RBC Hgb Hct MCV MCH MCHC RDW Plt Count MPV Immature Gran % (Auto) Neut % (Auto) Lymph % (Auto) [place] % (Auto) Eos % (Auto) Baso % (Auto) Lymph # (Auto) [place] # (Auto) Eos # (Auto) Baso # (Auto) Abs Immat Gran (auto) Absolute Neuts (auto) Absolute Nucleated RBC Nucleated RBC % (auto) PT INR APTT D-Dimer VBG pH VBG pCO2 VBG pO2 VBG HCO3 VBG O2 Saturation VBG Base Excess Sodium Potassium Chloride Carbon Dioxide Anion Gap BUN Creatinine Estim Creat Clear Calc Estimated GFR POC Glucose 150 H 143 H 139 H Random Glucose Calcium Phosphorus Magnesium Ferritin Total Bilirubin Direct Bilirubin AST ALT Alkaline Phosphatase Lactate Dehydrogenase Total Creatine Kinase C-Reactive Protein B-Natriuretic Peptide Total Protein Albumin 11/22/20 11/22/20 11/22/20 04:15 05:13 05:13 WBC RBC Hgb Hct MCV MCH MCHC RDW Plt Count MPV Immature Gran % (Auto) Neut % (Auto) Lymph % (Auto) [place] % (Auto) Eos % (Auto) Baso % (Auto) Lymph # (Auto) [place] # (Auto) Eos # (Auto) Baso # (Auto) Abs Immat Gran (auto) Absolute Neuts (auto) Absolute Nucleated RBC Nucleated RBC % (auto) PT 16.2 H INR 1.4 H APTT 34.9 D-Dimer 1045 VBG pH VBG pCO2 VBG pO2 VBG HCO3 VBG O2 Saturation VBG Base Excess Sodium 140 Potassium 4.6 Chloride 103 Carbon Dioxide 29 Anion Gap 13 BUN 52 H Creatinine 0.85 Estim Creat Clear Calc 96.7 Estimated GFR > 60 POC Glucose 128 H Random Glucose 179 H Calcium 8.3 L Phosphorus 3.8 Magnesium 2.3 Ferritin 542 H Total Bilirubin 0.8 Direct Bilirubin 0.5 AST 30 ALT 21 Alkaline Phosphatase 104 Lactate Dehydrogenase 454 H Total Creatine Kinase 105 C-Reactive Protein 6.57 H B-Natriuretic Peptide Total Protein 6.6 Albumin 2.7 L 11/22/20 11/22/20 11/22/20 05:13 05:13 05:22 WBC 13.3 H RBC 4.84 Hgb 12.4 Hct 38.7 MCV 80.0 MCH 25.6 L MCHC 32.0 RDW 16.5 H Plt Count 147 L MPV 9.9 Immature Gran % (Auto) 2.2 H Neut % (Auto) 89.1 H Lymph % (Auto) 6.0 L [place] % (Auto) 2.3 Eos % (Auto) 0.2 Baso % (Auto) 0.2 Lymph # (Auto) 0.8 L [place] # (Auto) 0.3 Eos # (Auto) 0.0 Baso # (Auto) 0.0 Abs Immat Gran (auto) 0.29 H Absolute Neuts (auto) 11.9 H Absolute Nucleated RBC 0.000 Nucleated RBC % (auto) 0.0 PT INR APTT D-Dimer VBG pH 7.42 VBG pCO2 38 VBG pO2 54 VBG HCO3 25 VBG O2 Saturation 84.0 VBG Base Excess 1.3 Sodium Potassium Chloride Carbon Dioxide Anion Gap BUN Creatinine Estim Creat Clear Calc Estimated GFR POC Glucose Random Glucose Calcium Phosphorus Magnesium Ferritin Total Bilirubin Direct Bilirubin AST ALT Alkaline Phosphatase Lactate Dehydrogenase Total Creatine Kinase C-Reactive Protein B-Natriuretic Peptide 91 Total Protein Albumin 11/22/20 11/22/20 11/22/20 06:26 06:50 07:54 WBC RBC Hgb Hct MCV MCH MCHC RDW Plt Count MPV Immature Gran % (Auto) Neut % (Auto) Lymph % (Auto) [place] % (Auto) Eos % (Auto) Baso % (Auto) Lymph # (Auto) [place] # (Auto) Eos # (Auto) Baso # (Auto) Abs Immat Gran (auto) Absolute Neuts (auto) Absolute Nucleated RBC Nucleated RBC % (auto) PT INR APTT D-Dimer VBG pH VBG pCO2 VBG pO2 VBG HCO3 VBG O2 Saturation VBG Base Excess Sodium Potassium Chloride Carbon Dioxide Anion Gap BUN Creatinine Estim Creat Clear Calc Estimated GFR POC Glucose 125 H 131 H 163 H Random Glucose Calcium Phosphorus Magnesium Ferritin Total Bilirubin Direct Bilirubin AST ALT Alkaline Phosphatase Lactate Dehydrogenase Total Creatine Kinase C-Reactive Protein B-Natriuretic Peptide Total Protein Albumin 11/22/20 11/22/20 11/22/20 08:51 09:46 10:51 WBC RBC Hgb Hct MCV MCH MCHC RDW Plt Count MPV Immature Gran % (Auto) Neut % (Auto) Lymph % (Auto) [place] % (Auto) Eos % (Auto) Baso % (Auto) Lymph # (Auto) [place] # (Auto) Eos # (Auto) Baso # (Auto) Abs Immat Gran (auto) Absolute Neuts (auto) Absolute Nucleated RBC Nucleated RBC % (auto) PT INR APTT D-Dimer VBG pH VBG pCO2 VBG pO2 VBG HCO3 VBG O2 Saturation VBG Base Excess Sodium Potassium Chloride Carbon Dioxide Anion Gap BUN Creatinine Estim Creat Clear Calc Estimated GFR POC Glucose 160 H 164 H 164 H Random Glucose Calcium Phosphorus Magnesium Ferritin Total Bilirubin Direct Bilirubin AST ALT Alkaline Phosphatase Lactate Dehydrogenase Total Creatine Kinase C-Reactive Protein B-Natriuretic Peptide Total Protein Albumin 11/22/20 11/22/20 11:44 13:04 WBC RBC Hgb Hct MCV MCH MCHC RDW Plt Count MPV Immature Gran % (Auto) Neut % (Auto) Lymph % (Auto) [place] % (Auto) Eos % (Auto) Baso % (Auto) Lymph # (Auto) [place] # (Auto) Eos # (Auto) Baso # (Auto) Abs Immat Gran (auto) Absolute Neuts (auto) Absolute Nucleated RBC Nucleated RBC % (auto) PT INR APTT D-Dimer VBG pH VBG pCO2 VBG pO2 VBG HCO3 VBG O2 Saturation VBG Base Excess Sodium Potassium Chloride Carbon Dioxide Anion Gap BUN Creatinine Estim Creat Clear Calc Estimated GFR POC Glucose 186 H 231 H Random Glucose Calcium Phosphorus Magnesium Ferritin Total Bilirubin Direct Bilirubin AST ALT Alkaline Phosphatase Lactate Dehydrogenase Total Creatine Kinase C-Reactive Protein B-Natriuretic Peptide Total Protein Albumin Microbiology Microbiology Results: Microbiology 11/22/20 08:15 Sputum - Suctioned Gram Stain - Final 11/09/20 19:57 Blood - Venous Blood Culture - Final Coag negative Staphylococcus 11/09/20 20:54 Blood - Venous Blood Culture - Final No growth after 5 days. Physical Exam Vital Signs: Vital Signs: Last Vital Signs Temp 100.0 F 11/22/20 13:00 Pulse 81 11/22/20 13:00 Resp 16 11/22/20 13:00 BP 104/54 L 11/22/20 13:00 Pulse Ox 90 L 11/22/20 13:00 Body Mass Index 53.2 Const: General: cooperative HENMT: Head: Yes normal to inspection Resp: Effort & Inspection: normal respiratory effort Cardio: Rate: regular rate Rhythm: regular rhythm GI: Palpation (GI): Soft to palpation and nontender Skin: General skin exam: no rashes or lesions noted Assessment and Plan Assessment and plan (1) Pneumonia due to COVID-19 virus: Status: Acute (2) Fever, unknown origin: Problem details: She has possible causes lung ,resistant organisms Gram negative and gram positive possible staph or gram negative Status: Acute Assessment and Plan: Since CXR some improvement would consider adjusting antibiotics based on sensisitivitis Time Spent With Patient Time: Total time spent is greater than 50% in coordination of care (as documented) at patient's floor/unit and/or counseling patient: Time with patient: 15 - 24 minutes
[2020-11-22 13:53] LABS: Glucose, Whole Blood 238 mg/dL (60-115)
[2020-11-22 15:19] LABS: Glucose, Whole Blood 253 mg/dL (60-115)
[2020-11-22 16:17] LABS: Glucose, Whole Blood 245 mg/dL (60-115)
[2020-11-22 17:26] LABS: Glucose, Whole Blood 218 mg/dL (60-115)
[2020-11-22 18:03] LABS: Glucose, Whole Blood 214 mg/dL (60-115)
[2020-11-22 19:53] LABS: Glucose, Whole Blood 199 mg/dL (60-115)
[2020-11-22 22:22] LABS: Glucose, Whole Blood 157 mg/dL (60-115)
[2020-11-22 23:37] LABS: Glucose, Whole Blood 149 mg/dL (60-115)
[2020-11-23] VITALS (30 sets, daily range): BP systolic 95–142; BP diastolic 36–68; PULSE 67–82; RESP 16–21; TEMP 36.4–36.9; O2SAT 89–96
[2020-11-23] MEDS: 0.9 % Sodium Chloride Flush 3 ML SYRINGE IVFLUSH ×4 (01:00→21:49)
[2020-11-23] MEDS: Piperacillin Sodium/Tazobactam 4.5 GM in 0.9 % Sodium Chloride 100 ML IV ×4 (01:04→20:47)
[2020-11-23 01:26] LABS: Glucose, Whole Blood 175 mg/dL (60-115)
[2020-11-23 04:35] LABS: Venous Blood Gas Refer to POC result
[2020-11-23 04:37] LABS: VBG Base Excess -0.4 mmol/L; VBG HCO3 24 mmol/L (22-26); VBG pCO2 38 mmHg; VBG pO2 60 mmHg
[2020-11-23 04:37] LABS: Glucose, Whole Blood 157 mg/dL (60-115)
[2020-11-23 04:47] LABS: Basophils Percent Auto 0.1 % (0-2); Lymphocytes Absolute Auto 0.8 X10*3/uL (1.2-4.9); Lymphocytes Percent Auto 5.7 % (20-40); MANUAL DIFF FLAG SCAN; PLT CLUMP 1; Red Cell Distribution Width 16.6 % (11.0-16.0); SCAN SMEAR FLAG 1
[2020-11-23 04:48] LABS: Eosinophils Absolute Auto 0.1 X10*3/uL (0.0-0.4); Eosinophils Percent Auto 0.4 % (0-4); Hematocrit 34.9 % (37-47); Imm Gran Abs Auto 0.29 X10*3/uL (0.00-0.03); Imm Gran Pct Auto 2.1 % (0.0-0.4); Mean Corpuscular HGB Conc 31.5 g/dl (31.0-35.0); Mean Corpuscular Hemoglobin 25.7 pg (27.0-33.0); Mean Corpuscular Volume 81.5 fL (80-98); Mean Platelet Volume 10.2 fL (9.4-12.3); Monocytes Absolute Auto 0.4 X10*3/uL (0.1-1.2); Monocytes Percent Auto 2.9 % (2-11); Neutrophils Absolute Auto 12.2 X10*3/uL (2.0-8.3); Neutrophils Percent Auto 88.8 % (45-73); Platelet Count 129 X10*3/uL (160-400); Red Blood Count 4.28 X10*6/uL (4.20-5.50); White Blood Count 13.8 X10*3/uL (4.8-10.8)
[2020-11-23 04:57] LABS: INTERNATIONAL NORM RATIO 1.6 (0.9-1.1); Prothrombin Time 18.6 SEC (10.8-13.0)
[2020-11-23 05:00] LABS: D Dimer 916 NG/ML; Partial Thromboplastin Time 35.2 SEC (24.1-38.0)
[2020-11-23 05:02] LABS: Alanine Aminotransferase 20 U/L (0-31); Albumin Level 2.5 g/dL (3.5-5.0); Alkaline Phosphatase 84 U/L (39-117); Aspartate Amino Transferase 26 U/L (5-31); Bilirubin Direct 0.6 mg/dL (0.0-0.5); Bilirubin Total 0.8 mg/dL (0.0-1.0); Blood Urea Nitrogen 51 mg/dL (9-16); C Reactive Protein 20.55 mg/dL (< or = 0.50); Calcium 7.9 mg/dL (8.4-10.2); Carbon Dioxide 26 mmol/L (22-29); Creatinine Clr Calc Pharmacy 85.7; Estimated Glomerular Filt Rate 58; Glucose Random 192 mg/dL (60-115); Lactate Dehydrogenase 380 U/L (122-220); Magnesium 2.3 mg/dL (1.6-2.6); Phosphorus 4.9 mg/dL (2.7-4.5); Total Protein 5.8 g/dL (6.5-8.0)
[2020-11-23 05:06] LABS: B Type Natriuretic Peptide 88 pg/mL (<100)
[2020-11-23 05:09] LABS: Anion Gap 11 (12-20); Chloride 104 mmol/L (96-108); Potassium 4.3 mmol/L (3.3-5.1); Sodium 138 mmol/L (135-145)
[2020-11-23] MEDS: propofoL 1,000 MG/100 ML VIAL 26.94 MG IVCONT ×6 (05:26→21:49)
[2020-11-23 05:34] LABS: Ferritin 793 ng/mL (10-250)
[2020-11-23 05:41] LABS: SLIDE REVIEW VERIFIED
[2020-11-23 06:08] LABS: Glucose, Whole Blood 158 mg/dL (60-115)
--- NOTE | 2020-11-23 06:23 | PC.NURSE ---
ASSUMED CARE OF PT AT 1900. PT MAINTAINED ON AC VENT SETTINGS. NO RESP DIFFICULTIES DURING THE NIGHT. STARTED TO SUCTION PINK FOAM LIKE SPUTUM FROM ETT THIS MORNING AT 0600. U/O HAS BEEN GOOD. CVP 4. NARESH GUERRERO NOTIFIED OF PINK SPUTUM. PT HAD A BNP DRAWN, RESULTS PENDING. O2 SATS 91-95% ON FIO2 OF 55%. MONITOR SHOWS NSR, HR 70'S-80'S. BP GOOD 110'S/50'S BUT DROPPED SLIGHTLY WITH MAP LOW 58 WHICH CORRELATED WITH THE ADMINISTRATION OF RYTHMOL. NARESH GUERRERO AWARE. PT HAS BEEN AFEBRILE. GOOD SEDATION EFFECT ON PROPOFOL. INSULIN DRIP INFUSING. SEE INSULIN INFUSION FLOW SHEET. PT TURNED AND REPOS Q2H. STAGE 2 PRESSURE ULCERS ON BUTTOCKS BLEEDING SMALL AMOUNTS.
[2020-11-23 07:25] LABS: Glucose, Whole Blood 148 mg/dL (60-115)
[2020-11-23] MEDS: Chlorhexidine Gluc Oral Rinse 15 ML MOUTHWASH BUCCAL ×3 (08:46→20:48)
[2020-11-23] MEDS: Apixaban 5 MG TABLET PO ×2 (08:46→20:48)
[2020-11-23] MEDS: Cholecalciferol (Vitamin D3) 25 MCG TABLET 50 MCG PO (08:46)
[2020-11-23] MEDS: Ascorbic Acid 500 MG TABLET PO ×2 (08:46→20:48)
[2020-11-23] MEDS: dexAMETHasone 6 MG TABLET PO (08:46)
[2020-11-23] MEDS: Nystatin Powder 15 GM BOTTLE 1 APPL TOPICAL ×2 (08:47→20:48)
[2020-11-23 09:23] LABS: Glucose, Whole Blood 158 mg/dL (60-115)
[2020-11-23 11:25] LABS: Glucose, Whole Blood 150 mg/dL (60-115)
--- NOTE | 2020-11-23 12:15 | MHC.CM.PN ---
Call placed to pt's dtr Luz at [phone] to update her on pt status and discuss d/c plans. Original plan was for a return to home with existing [facility] and [facility] however, pt may be very deconditioned and require STR. Luz states she is confident that pt will make a full recovery and return to home and would like to defer STR discussions at this time. My mother is very strong and she always pulls through CM to follow for amendments to d/c plan.
[2020-11-23 13:12] LABS: Glucose, Whole Blood 146 mg/dL (60-115)
[2020-11-23] MEDS: Insulin Regular/NS 100 UNIT/100 ML PLAST..BAG 6 UNIT IVCONT (14:19)
[2020-11-23 14:57] LABS: Glucose, Whole Blood 172 mg/dL (60-115)
--- NOTE | 2020-11-23 15:42 | PM.CCPN ---
Subjective Subjective Date of Service: 11/23/20 Interval History: 65-year-old type 2 diabetic morbidly obese brought down from the floor after more than a week of maximum noninvasive ventilatory support for COVID-19 bilateral pneumonitis and ARDS requiring intubation she had subsequently developed low-grade temperature little drop in her oxygenation and a surveillance sputum culture seems to be growing gram-negative rods and currently being covered with the Zosyn for in a nosocomial infection and remains on assist control with an FiO2 of 50% but minute ventilatory requirements are merely 10-10.5 liters/minute and we evaluate cognitive function when we decrease her propofol which is at minimal levels and she does very well with her cognitive function and her cardiac status despite a history of chronic diastolic dysfunction and has been doing very well she has stable CVP ease and and if we can decrease her FiO2 below 50% I think she would be ready for a pressure support weaning trial In addition she had a history and and she did this here in the hospital with the another paroxysm of atrial flutter in this case and she started to desaturate probably because it was creating diastolic dysfunction and we had to cardiovert and that worked out successfully and following that eyes because it was the 2nd episode I started propafenone at 150 mg q.8 hourly and her home maintenance dose of metoprolol because of relative bradycardia I dropped down to 25 mg q.12 Physical Exam Vital Signs: Vital Signs: Last Vital Signs Temp 97.9 F 11/23/20 15:00 Pulse 73 11/23/20 15:00 Resp 16 11/23/20 15:00 BP 128/59 L 11/23/20 15:00 Pulse Ox 89 L 11/23/20 15:00 Body Mass Index 53.2 Const: Other: She is afebrile with cognitive function preserved nonfocal neurologically CVP is no greater than 5 and has good bilateral carotid upstrokes no murmurs no gallops Abdomen soft tolerating feedings no organomegaly Course ventilatory sounds bilaterally Still has a healing state stage II pressure sore over the coccyx Objective Data Labs CBC & Chem 7: 11/23/20 04:21 11/23/20 04:21 Labs: Laboratory Results - last 24 hr 11/22/20 11/22/20 11/22/20 16:03 17:03 17:55 WBC RBC Hgb Hct MCV MCH MCHC RDW Plt Count MPV Immature Gran % (Auto) Neut % (Auto) Lymph % (Auto) [place] % (Auto) Eos % (Auto) Baso % (Auto) Lymph # (Auto) [place] # (Auto) Eos # (Auto) Baso # (Auto) Abs Immat Gran (auto) Absolute Neuts (auto) Absolute Nucleated RBC Nucleated RBC % (auto) Smear Tech's Comments PT INR APTT D-Dimer VBG pH VBG pCO2 VBG pO2 VBG HCO3 VBG O2 Saturation VBG Base Excess Sodium Potassium Chloride Carbon Dioxide Anion Gap BUN Creatinine Estim Creat Clear Calc Estimated GFR POC Glucose 245 H 218 H 214 H Random Glucose Calcium Phosphorus Magnesium Ferritin Total Bilirubin Direct Bilirubin AST ALT Alkaline Phosphatase Lactate Dehydrogenase Total Creatine Kinase C-Reactive Protein B-Natriuretic Peptide Total Protein Albumin 11/22/20 11/22/20 11/22/20 19:42 22:05 23:24 WBC RBC Hgb Hct MCV MCH MCHC RDW Plt Count MPV Immature Gran % (Auto) Neut % (Auto) Lymph % (Auto) [place] % (Auto) Eos % (Auto) Baso % (Auto) Lymph # (Auto) [place] # (Auto) Eos # (Auto) Baso # (Auto) Abs Immat Gran (auto) Absolute Neuts (auto) Absolute Nucleated RBC Nucleated RBC % (auto) Smear Tech's Comments PT INR APTT D-Dimer VBG pH VBG pCO2 VBG pO2 VBG HCO3 VBG O2 Saturation VBG Base Excess Sodium Potassium Chloride Carbon Dioxide Anion Gap BUN Creatinine Estim Creat Clear Calc Estimated GFR POC Glucose 199 H 157 H 149 H Random Glucose Calcium Phosphorus Magnesium Ferritin Total Bilirubin Direct Bilirubin AST ALT Alkaline Phosphatase Lactate Dehydrogenase Total Creatine Kinase C-Reactive Protein B-Natriuretic Peptide Total Protein Albumin 11/23/20 11/23/20 11/23/20 01:07 04:20 04:21 WBC RBC Hgb Hct MCV MCH MCHC RDW Plt Count MPV Immature Gran % (Auto) Neut % (Auto) Lymph % (Auto) [place] % (Auto) Eos % (Auto) Baso % (Auto) Lymph # (Auto) [place] # (Auto) Eos # (Auto) Baso # (Auto) Abs Immat Gran (auto) Absolute Neuts (auto) Absolute Nucleated RBC Nucleated RBC % (auto) Smear Tech's Comments PT 18.6 H INR 1.6 H APTT 35.2 D-Dimer 916 VBG pH VBG pCO2 VBG pO2 VBG HCO3 VBG O2 Saturation VBG Base Excess Sodium Potassium Chloride Carbon Dioxide Anion Gap BUN Creatinine Estim Creat Clear Calc Estimated GFR POC Glucose 175 H 157 H Random Glucose Calcium Phosphorus Magnesium Ferritin Total Bilirubin Direct Bilirubin AST ALT Alkaline Phosphatase Lactate Dehydrogenase Total Creatine Kinase C-Reactive Protein B-Natriuretic Peptide Total Protein Albumin 11/23/20 11/23/20 11/23/20 04:21 04:21 04:21 WBC 13.8 H RBC 4.28 Hgb 11.0 L Hct 34.9 L MCV 81.5 MCH 25.7 L MCHC 31.5 RDW 16.6 H Plt Count 129 L MPV 10.2 Immature Gran % (Auto) 2.1 H Neut % (Auto) 88.8 H Lymph % (Auto) 5.[address] [place] % (Auto) 2.9 Eos % (Auto) 0.4 Baso % (Auto) 0.1 Lymph # (Auto) 0.[address] [place] # (Auto) 0.4 Eos # (Auto) 0.1 Baso # (Auto) 0.0 Abs Immat Gran (auto) 0.29 H Absolute Neuts (auto) 12.2 H Absolute Nucleated RBC 0.000 Nucleated RBC % (auto) 0.0 Smear Tech's Comments VERIFIED PT INR APTT D-Dimer VBG pH VBG pCO2 VBG pO2 VBG HCO3 VBG O2 Saturation VBG Base Excess Sodium 138 Potassium 4.3 Chloride 104 Carbon Dioxide 26 Anion Gap 11 L BUN 51 H Creatinine 0.96 Estim Creat Clear Calc 85.7 Estimated GFR 58 POC Glucose Random Glucose 192 H Calcium 7.9 L Phosphorus 4.9 H Magnesium 2.3 Ferritin 793 H Total Bilirubin 0.8 Direct Bilirubin 0.6 H AST 26 ALT 20 Alkaline Phosphatase 84 Lactate Dehydrogenase 380 H Total Creatine Kinase 144 H D C-Reactive Protein 20.55 H B-Natriuretic Peptide 88 Total Protein 5.8 L Albumin 2.5 L 11/23/20 11/23/20 11/23/20 04:30 06:02 07:19 WBC RBC Hgb Hct MCV MCH MCHC RDW Plt Count MPV Immature Gran % (Auto) Neut % (Auto) Lymph % (Auto) [place] % (Auto) Eos % (Auto) Baso % (Auto) Lymph # (Auto) [place] # (Auto) Eos # (Auto) Baso # (Auto) Abs Immat Gran (auto) Absolute Neuts (auto) Absolute Nucleated RBC Nucleated RBC % (auto) Smear Tech's Comments PT INR APTT D-Dimer VBG pH 7.40 VBG pCO2 38 VBG pO2 60 VBG HCO3 24 VBG O2 Saturation 88.0 VBG Base Excess -0.4 Sodium Potassium Chloride Carbon Dioxide Anion Gap BUN Creatinine Estim Creat Clear Calc Estimated GFR POC Glucose 158 H 148 H Random Glucose Calcium Phosphorus Magnesium Ferritin Total Bilirubin Direct Bilirubin AST ALT Alkaline Phosphatase Lactate Dehydrogenase Total Creatine Kinase C-Reactive Protein B-Natriuretic Peptide Total Protein Albumin 11/23/20 11/23/20 11/23/20 08:57 11:06 12:52 WBC RBC Hgb Hct MCV MCH MCHC RDW Plt Count MPV Immature Gran % (Auto) Neut % (Auto) Lymph % (Auto) [place] % (Auto) Eos % (Auto) Baso % (Auto) Lymph # (Auto) [place] # (Auto) Eos # (Auto) Baso # (Auto) Abs Immat Gran (auto) Absolute Neuts (auto) Absolute Nucleated RBC Nucleated RBC % (auto) Smear Tech's Comments PT INR APTT D-Dimer VBG pH VBG pCO2 VBG pO2 VBG HCO3 VBG O2 Saturation VBG Base Excess Sodium Potassium Chloride Carbon Dioxide Anion Gap BUN Creatinine Estim Creat Clear Calc Estimated GFR POC Glucose 158 H 150 H 146 H Random Glucose Calcium Phosphorus Magnesium Ferritin Total Bilirubin Direct Bilirubin AST ALT Alkaline Phosphatase Lactate Dehydrogenase Total Creatine Kinase C-Reactive Protein B-Natriuretic Peptide Total Protein Albumin 11/23/20 14:50 WBC RBC Hgb Hct MCV MCH MCHC RDW Plt Count MPV Immature Gran % (Auto) Neut % (Auto) Lymph % (Auto) [place] % (Auto) Eos % (Auto) Baso % (Auto) Lymph # (Auto) [place] # (Auto) Eos # (Auto) Baso # (Auto) Abs Immat Gran (auto) Absolute Neuts (auto) Absolute Nucleated RBC Nucleated RBC % (auto) Smear Tech's Comments PT INR APTT D-Dimer VBG pH VBG pCO2 VBG pO2 VBG HCO3 VBG O2 Saturation VBG Base Excess Sodium Potassium Chloride Carbon Dioxide Anion Gap BUN Creatinine Estim Creat Clear Calc Estimated GFR POC Glucose 172 H Random Glucose Calcium Phosphorus Magnesium Ferritin Total Bilirubin Direct Bilirubin AST ALT Alkaline Phosphatase Lactate Dehydrogenase Total Creatine Kinase C-Reactive Protein B-Natriuretic Peptide Total Protein Albumin Microbiology Microbiology Results: Microbiology 11/22/20 08:15 Sputum - Suctioned Gram Stain - Final 11/22/20 08:15 Sputum - Suctioned Sputum Culture - Preliminary Gram negative emory 11/09/20 19:57 Blood - Venous Blood Culture - Final Coag negative Staphylococcus 11/09/20 20:54 Blood - Venous Blood Culture - Final No growth after 5 days. Progress Note: A&P Assessment and plan (1) Fever, unknown origin: Problem details: She has possible causes lung ,resistant organisms Gram negative and gram positive possible staph or gram negative Status: Acute (2) Pressure injury of buttock, stage 2: Problem details: Pt with some shear injury it seems to buttocks bilaterally now intubated and treating for Covid. cont with barrier cream to the area and foam dressing, cont to offload and rotate and reposition every 30 min to one hour and special air mattress etc. careful with moving pt in regards to dragging across sheet. Status: Acute (3) Pneumonia due to 2019-nCoV: Problem details: She has COVID She has oxygen dependency and rather unremarkable liver and kidney tests Status: Acute (4) Hypoxia: Status: Acute (5) Pneumonia due to COVID-19 virus: Status: Acute (6) Type 2 diabetes mellitus with chronic kidney disease: Status: Acute (7) Chronic heart failure with preserved ejection fraction (HFpEF): Status: Acute (8) Right heart failure (secondary to left heart failure): Status: Acute (9) Respiratory failure with hypoxia and hypercapnia: Status: Acute (10) Paroxysmal atrial fibrillation: Status: Acute (11) CAD (coronary artery disease): Problem details: KAREN to LCx for ACS,10/02. Status: Acute (12) MOISÉS (obstructive sleep apnea): Status: Acute (13) Morbid obesity due to excess calories: Status: Acute (14) Type 2 diabetes mellitus with hyperglycemia, with long-term current use of insulin: Status: Acute (15) Type 2 diabetes mellitus with diabetic polyneuropathy: Status: Acute (16) Hyperlipidemia LDL goal <70: Status: Acute (17) Essential hypertension: Status: Acute (18) Degenerative arthritis of knee, bilateral: Status: Acute Assessment and Plan: Will continue Zosyn until final species is returned from the sputum but the vancomycin on discontinuing it seems to be superfluous She remains on full-dose apixaban because of the paroxysmal atrial fibrillation Time Spent With Patient Time: Total time spent is greater than 50% in coordination of care (as documented) at patient's floor/unit and/or counseling patient: Total time spent with greater than 50% in coordination of care (as documented) at patient's floor/unit and/or counseling patient:: 35
[2020-11-23 17:17] LABS: Glucose, Whole Blood 209 mg/dL (60-115)
[2020-11-23 19:24] LABS: Glucose, Whole Blood 247 mg/dL (60-115)
[2020-11-23] MEDS: Metoprolol Tartrate 25 MG TABLET PO (20:48)
[2020-11-23 21:27] LABS: Glucose, Whole Blood 205 mg/dL (60-115)
[2020-11-23 23:24] LABS: Glucose, Whole Blood 156 mg/dL (60-115)
[2020-11-24] VITALS (31 sets, daily range): BP systolic 121–158; BP diastolic 47–79; PULSE 67–102; RESP 16–30; TEMP 36.2–37; O2SAT 3–97
[2020-11-24 00:21] LABS: Glucose, Whole Blood 154 mg/dL (60-115)
[2020-11-24] MEDS: Piperacillin Sodium/Tazobactam 4.5 GM in 0.9 % Sodium Chloride 100 ML IV ×3 (00:43→13:03)
[2020-11-24] MEDS: propofoL 1,000 MG/100 ML VIAL 26.94 MG IVCONT ×7 (00:43→22:58)
[2020-11-24 03:26] LABS: Glucose, Whole Blood 175 mg/dL (60-115)
[2020-11-24] MEDS: Insulin Regular/NS 100 UNIT/100 ML PLAST..BAG 6 UNIT IVCONT ×2 (04:59→22:59)
[2020-11-24 05:19] LABS: Glucose, Whole Blood 177 mg/dL (60-115)
[2020-11-24 06:05] LABS: PLT CLUMP 1
[2020-11-24 06:06] LABS: Hematocrit 34.5 % (37-47); Mean Corpuscular HGB Conc 31.9 g/dl (31.0-35.0); Mean Corpuscular Hemoglobin 25.9 pg (27.0-33.0); Mean Corpuscular Volume 81.4 fL (80-98); Mean Platelet Volume 10.5 fL (9.4-12.3); Platelet Count 144 X10*3/uL (160-400); Red Blood Count 4.24 X10*6/uL (4.20-5.50); Red Cell Distribution Width 16.7 % (11.0-16.0); White Blood Count 9.6 X10*3/uL (4.8-10.8)
[2020-11-24 06:21] LABS: INTERNATIONAL NORM RATIO 1.4 (0.9-1.1); Prothrombin Time 16.6 SEC (10.8-13.0)
[2020-11-24 06:40] LABS: B Type Natriuretic Peptide 133 pg/mL (<100)
[2020-11-24 06:48] LABS: Alanine Aminotransferase 18 U/L (0-31); Albumin Level 2.5 g/dL (3.5-5.0); Alkaline Phosphatase 83 U/L (39-117); Anion Gap 14 (12-20); Aspartate Amino Transferase 22 U/L (5-31); Bilirubin Direct 0.6 mg/dL (0.0-0.5); Bilirubin Total 0.7 mg/dL (0.0-1.0); Blood Urea Nitrogen 45 mg/dL (9-16); C Reactive Protein 18.08 mg/dL (< or = 0.50); Carbon Dioxide 26 mmol/L (22-29); Chloride 103 mmol/L (96-108); Creatinine Clr Calc Pharmacy 89.3; Estimated Glomerular Filt Rate > 60; Glucose Random 228 mg/dL (60-115); Lactate Dehydrogenase 385 U/L (122-220); Magnesium 2.2 mg/dL (1.6-2.6); Phosphorus 4.8 mg/dL (2.7-4.5); Potassium 4.6 mmol/L (3.3-5.1); Sodium 138 mmol/L (135-145); Total Protein 6.1 g/dL (6.5-8.0)
[2020-11-24 06:55] LABS: Band Neutrophils Percent 4 % (3-5); Burr Cells 1+; Eosinophils Absolute Manual 0.3 X10*3/UL (0.0-0.8); Eosinophils Percent Manual 3 % (0-4); Lymphocytes Absolute Manual 0.3 X10*3/uL (0.6-4.8); Lymphocytes Percent Manual 3 % (20-40); Monocytes Absolute Manual 0.1 X10*3/uL (0.0-1.2); Monocytes Percent Manual 1 % (2-11); Neutrophils Absolute Manual 8.9 X10*3/uL (2.2-7.9); Neutrophils Percent Manual 89 % (45-73); Platelet Estimate SLIGHTLY DECREASED (NORMAL); Platelet Morphology Comment NORMAL; RBC Morphology NOTED
[2020-11-24 06:56] LABS: Hypochromasia 1+
[2020-11-24 07:01] LABS: Ferritin 699 ng/mL (10-250)
[2020-11-24 07:50] LABS: Glucose, Whole Blood 179 mg/dL (60-115)
[2020-11-24 09:40] LABS: Glucose, Whole Blood 173 mg/dL (60-115)
[2020-11-24 10:18] LABS: Glucose, Whole Blood 141 mg/dL (60-115)
[2020-11-24] MEDS: Chlorhexidine Gluc Oral Rinse 15 ML MOUTHWASH BUCCAL ×3 (12:07→20:51)
[2020-11-24] MEDS: Furosemide 40 MG/4 ML VIAL IVPUSH (12:07)
[2020-11-24] MEDS: Albumin Human 25 % 100 ML IV ×3 (12:08→20:50)
[2020-11-24] MEDS: Cholecalciferol (Vitamin D3) 25 MCG TABLET 50 MCG PO (12:19)
[2020-11-24] MEDS: Apixaban 5 MG TABLET PO ×2 (12:19→20:51)
[2020-11-24] MEDS: Ascorbic Acid 500 MG TABLET PO ×2 (12:19→20:51)
[2020-11-24] MEDS: Nystatin Powder 15 GM BOTTLE 1 APPL TOPICAL ×2 (12:20→20:52)
[2020-11-24] MEDS: Metoprolol Tartrate 25 MG TABLET PO ×2 (12:20→20:51)
[2020-11-24 14:06] LABS: Glucose, Whole Blood 112 mg/dL (60-115)
[2020-11-24 15:24] LABS: Glucose, Whole Blood 153 mg/dL (60-115)
--- NOTE | 2020-11-24 15:44 | PM.CCPN ---
Subjective Subjective Date of Service: 11/24/20 Interval History: 65-year-old lady with underlying multiple medical problems including coronary artery disease, diastolic congestive heart failure, right heart failure secondary to left heart failure, AFib on anticoagulation, COPD, hypertension, morbid obesity, diabetes admitted on 11/09/2020 with shortness of breath secondary to COVID-19. Patient has initially been admitted to general medical [facility] and treated with dexamethasone, however her FiO2 requirement continue to deteriorate requiring transfer to intensive care unit, intubation, and ventilatory support on 11/18/2020. Her sputum culture has been positive for stenotrophomonas which is likely a colonization. She has had an episode of AFib with RVR requiring cardioversion, now controlled on propafenone and metoprolol. No events overnight. Physical Exam Vital Signs: Vital Signs: Last Vital Signs Temp 98.4 F 11/24/20 15:00 Pulse 85 11/24/20 15:00 Resp 28 H 11/24/20 15:00 BP 136/59 L 11/24/20 15:00 Pulse Ox 3 L 11/24/20 15:00 Body Mass Index 53.2 Const: General: no acute distress and other (Sedated on the vent, follows commands with sedation vacation) Nutritional Appearance: obese Eyes: Sclerae: sclerae normal EOM: EOMs intact bilaterally Neck: Neck: Yes no lymphadenopathy, Yes trachea midline and Yes supple Resp: Auscultation: crackles (Diffuse bilateral) Cardio: Rate: regular rate Rhythm: regular rhythm Heart sounds: no gallops, no murmurs and no rubs GI: Palpation (GI): Soft to palpation and Other GI palpation findings present ( Nontender) Auscultation: normal bowel sounds Extrem: General: No clubbing, No cyanosis and Yes edema (Trace bilateral) Objective Data Labs CBC & Chem 7: 11/24/20 05:35 11/24/20 05:35 Labs: Laboratory Results - last 24 hr 11/23/20 11/23/20 11/23/20 17:08 19:18 20:56 WBC RBC Hgb Hct MCV MCH MCHC RDW Plt Count MPV Immature Gran % (Auto) Neut % (Auto) Lymph % (Auto) [place] % (Auto) Eos % (Auto) Baso % (Auto) Lymph # (Auto) [place] # (Auto) Eos # (Auto) Baso # (Auto) Abs Immat Gran (auto) Absolute Neuts (auto) Absolute Nucleated RBC Nucleated RBC % (auto) Neutrophils % (Manual) Band Neutrophils % Lymphocytes % (Manual) Monocytes % (Manual) Eosinophils % (Manual) Abs Neuts (Manual) Lymphocytes # (Manual) Monocytes # (Manual) Eosinophils # (Manual) Platelet Estimate Plt Morphology Comment RBC Morphology Hypochromasia Paige Cells PT INR APTT Sodium Potassium Chloride Carbon Dioxide Anion Gap BUN Creatinine Estim Creat Clear Calc Estimated GFR POC Glucose 209 H 247 H 205 H Random Glucose Calcium Phosphorus Magnesium Ferritin Total Bilirubin Direct Bilirubin AST ALT Alkaline Phosphatase Lactate Dehydrogenase Total Creatine Kinase C-Reactive Protein B-Natriuretic Peptide Total Protein Albumin 11/23/20 11/24/20 11/24/20 23:05 00:13 03:02 WBC RBC Hgb Hct MCV MCH MCHC RDW Plt Count MPV Immature Gran % (Auto) Neut % (Auto) Lymph % (Auto) [place] % (Auto) Eos % (Auto) Baso % (Auto) Lymph # (Auto) [place] # (Auto) Eos # (Auto) Baso # (Auto) Abs Immat Gran (auto) Absolute Neuts (auto) Absolute Nucleated RBC Nucleated RBC % (auto) Neutrophils % (Manual) Band Neutrophils % Lymphocytes % (Manual) Monocytes % (Manual) Eosinophils % (Manual) Abs Neuts (Manual) Lymphocytes # (Manual) Monocytes # (Manual) Eosinophils # (Manual) Platelet Estimate Plt Morphology Comment RBC Morphology Hypochromasia Paige Cells PT INR APTT Sodium Potassium Chloride Carbon Dioxide Anion Gap BUN Creatinine Estim Creat Clear Calc Estimated GFR POC Glucose 156 H 154 H 175 H Random Glucose Calcium Phosphorus Magnesium Ferritin Total Bilirubin Direct Bilirubin AST ALT Alkaline Phosphatase Lactate Dehydrogenase Total Creatine Kinase C-Reactive Protein B-Natriuretic Peptide Total Protein Albumin 11/24/20 11/24/20 11/24/20 05:05 05:35 05:35 WBC RBC Hgb Hct MCV MCH MCHC RDW Plt Count MPV Immature Gran % (Auto) Neut % (Auto) Lymph % (Auto) [place] % (Auto) Eos % (Auto) Baso % (Auto) Lymph # (Auto) [place] # (Auto) Eos # (Auto) Baso # (Auto) Abs Immat Gran (auto) Absolute Neuts (auto) Absolute Nucleated RBC Nucleated RBC % (auto) Neutrophils % (Manual) Band Neutrophils % Lymphocytes % (Manual) Monocytes % (Manual) Eosinophils % (Manual) Abs Neuts (Manual) Lymphocytes # (Manual) Monocytes # (Manual) Eosinophils # (Manual) Platelet Estimate Plt Morphology Comment RBC Morphology Hypochromasia Paige Cells PT 16.6 H INR 1.4 H APTT 36.0 Sodium 138 Potassium 4.6 Chloride 103 Carbon Dioxide 26 Anion Gap 14 BUN 45 H Creatinine 0.92 Estim Creat Clear Calc 89.3 Estimated GFR > 60 POC Glucose 177 H Random Glucose 228 H Calcium 8.0 L Phosphorus 4.8 H Magnesium 2.2 Ferritin 699 H Total Bilirubin 0.7 Direct Bilirubin 0.6 H AST 22 ALT 18 Alkaline Phosphatase 83 Lactate Dehydrogenase 385 H Total Creatine Kinase 86 D C-Reactive Protein 18.08 H B-Natriuretic Peptide Total Protein 6.1 L Albumin 2.5 L 11/24/20 11/24/20 11/24/20 05:35 05:35 07:29 WBC 9.6 RBC 4.24 Hgb 11.0 L Hct 34.5 L MCV 81.4 MCH 25.9 L MCHC 31.9 RDW 16.7 H Plt Count 144 L MPV 10.5 Immature Gran % (Auto) Cancelled Neut % (Auto) Cancelled Lymph % (Auto) Cancelled [place] % (Auto) Cancelled Eos % (Auto) Cancelled Baso % (Auto) Cancelled Lymph # (Auto) Cancelled [place] # (Auto) Cancelled Eos # (Auto) Cancelled Baso # (Auto) Cancelled Abs Immat Gran (auto) Cancelled Absolute Neuts (auto) Cancelled Absolute Nucleated RBC 0.000 Nucleated RBC % (auto) 0.0 Neutrophils % (Manual) 89 H Band Neutrophils % 4 Lymphocytes % (Manual) 3 L Monocytes % (Manual) 1 L Eosinophils % (Manual) 3 Abs Neuts (Manual) 8.9 H Lymphocytes # (Manual) 0.3 L Monocytes # (Manual) 0.1 Eosinophils # (Manual) 0.3 Platelet Estimate SLIGHTLY DECREASED Plt Morphology Comment NORMAL RBC Morphology NOTED Hypochromasia 1+ Paige Cells 1+ PT INR APTT Sodium Potassium Chloride Carbon Dioxide Anion Gap BUN Creatinine Estim Creat Clear Calc Estimated GFR POC Glucose 179 H Random Glucose Calcium Phosphorus Magnesium Ferritin Total Bilirubin Direct Bilirubin AST ALT Alkaline Phosphatase Lactate Dehydrogenase Total Creatine Kinase C-Reactive Protein B-Natriuretic Peptide 133 H Total Protein Albumin 11/24/20 11/24/20 11/24/20 09:27 10:13 13:05 WBC RBC Hgb Hct MCV MCH MCHC RDW Plt Count MPV Immature Gran % (Auto) Neut % (Auto) Lymph % (Auto) [place] % (Auto) Eos % (Auto) Baso % (Auto) Lymph # (Auto) [place] # (Auto) Eos # (Auto) Baso # (Auto) Abs Immat Gran (auto) Absolute Neuts (auto) Absolute Nucleated RBC Nucleated RBC % (auto) Neutrophils % (Manual) Band Neutrophils % Lymphocytes % (Manual) Monocytes % (Manual) Eosinophils % (Manual) Abs Neuts (Manual) Lymphocytes # (Manual) Monocytes # (Manual) Eosinophils # (Manual) Platelet Estimate Plt Morphology Comment RBC Morphology Hypochromasia Paige Cells PT INR APTT Sodium Potassium Chloride Carbon Dioxide Anion Gap BUN Creatinine Estim Creat Clear Calc Estimated GFR POC Glucose 173 H 141 H 112 Random Glucose Calcium Phosphorus Magnesium Ferritin Total Bilirubin Direct Bilirubin AST ALT Alkaline Phosphatase Lactate Dehydrogenase Total Creatine Kinase C-Reactive Protein B-Natriuretic Peptide Total Protein Albumin 11/24/20 15:12 WBC RBC Hgb Hct MCV MCH MCHC RDW Plt Count MPV Immature Gran % (Auto) Neut % (Auto) Lymph % (Auto) [place] % (Auto) Eos % (Auto) Baso % (Auto) Lymph # (Auto) [place] # (Auto) Eos # (Auto) Baso # (Auto) Abs Immat Gran (auto) Absolute Neuts (auto) Absolute Nucleated RBC Nucleated RBC % (auto) Neutrophils % (Manual) Band Neutrophils % Lymphocytes % (Manual) Monocytes % (Manual) Eosinophils % (Manual) Abs Neuts (Manual) Lymphocytes # (Manual) Monocytes # (Manual) Eosinophils # (Manual) Platelet Estimate Plt Morphology Comment RBC Morphology Hypochromasia [place] Cells PT INR APTT Sodium Potassium Chloride Carbon Dioxide Anion Gap BUN Creatinine Estim Creat Clear Calc Estimated GFR POC Glucose 153 H Random Glucose Calcium Phosphorus Magnesium Ferritin Total Bilirubin Direct Bilirubin AST ALT Alkaline Phosphatase Lactate Dehydrogenase Total Creatine Kinase C-Reactive Protein B-Natriuretic Peptide Total Protein Albumin Microbiology Microbiology Results: Microbiology 11/22/20 08:15 Sputum - Suctioned Gram Stain - Final 11/22/20 08:15 Sputum - Suctioned Sputum Culture - Final Stenotrophomonas maltophilia 11/09/20 19:57 Blood - Venous Blood Culture - Final Coag negative Staphylococcus 11/09/20 20:54 Blood - Venous Blood Culture - Final No growth after 5 days. Progress Note: A&P Assessment and plan (1) Acute respiratory distress syndrome (ARDS) due to COVID-19 virus: Status: Acute Assessment and Plan: Assessment: 65-year-old lady with multiple medical issues admitted with hypoxia secondary to COVID-19 ARDS now requiring ventilatory support. Plan: Neuro: No acute issues. Cardiac: Underlying diastolic dysfunction, right-sided heart failure, and paroxysmal fibrillation. Continue with rate and rhythm control with propafenone and metoprolol. Continue anticoagulation with apixaban. Pulmonary: Acute hypoxic respiratory failure secondary to COVID-19 ARDS. Continue to titrate off ventilatory support as tolerated. Renal: No acute issues. Endo: No acute issues. GI: No acute issues. ID: Sputum culture with stenotrophomonas maltophilia, Levaquin susceptible, likely a colonization. Will change Zosyn to Levaquin. Will consider discontinuation of antibiotics in 48 hours if remains afebrile and leukocytosis continues to improve. COVID-19, status post dexamethasone. Heme/Onc: No acute issues. Psych: No acute issues. Miscellaneous: No acute issues. Prophylaxis: Apixaban, famotidine Diet: Tube feeds Critical care time spent: 60 minutes (2) Acute respiratory failure with hypoxia: Status: Acute (3) Type 2 diabetes mellitus with chronic kidney disease: Status: Acute (4) Chronic heart failure with preserved ejection fraction (HFpEF): Status: Acute (5) Right heart failure (secondary to left heart failure): Status: Acute (6) Paroxysmal atrial fibrillation: Status: Acute (7) Essential hypertension: Status: Acute (8) Morbid obesity due to excess calories: Status: Acute (9) MOISÉS (obstructive sleep apnea): Status: Acute Time Spent With Patient Total time spent with greater than 50% in coordination of care (as documented) at patient's floor/unit and/or counseling patient:: 0 Critical Care Time Critical Care Time (minutes): 60
[2020-11-24 16:05] LABS: Glucose, Whole Blood 136 mg/dL (60-115)
[2020-11-24] MEDS: 0.9 % Sodium Chloride Flush 3 ML SYRINGE IVFLUSH (17:43)
[2020-11-24] MEDS: levoFLOXacin/D5W 750 MG/150 ML PIGGYBACK 100 MG IV (17:43)
[2020-11-24 18:54] LABS: Glucose, Whole Blood 174 mg/dL (60-115)
--- NOTE | 2020-11-24 19:16 | PC.NURSE ---
Sedation vacation initiated at 1230 with pt able to squeeze hands on command. Pt was not compliant with ventilator at time of her sedation vacation. Pt was placed back on propofol for sedation and MD aware. Fio2 adjustment needed to PC settings for drop in sats. Increased to 70% this morning but able to titrate down to 60% this afternoon.
[2020-11-24 20:46] LABS: Glucose, Whole Blood 187 mg/dL (60-115)
[2020-11-25] VITALS (26 sets, daily range): BP systolic 101–161; BP diastolic 47–69; PULSE 27–111; RESP 19–32; TEMP 36.8–38.1; O2SAT 86–95
[2020-11-25 00:12] LABS: Glucose, Whole Blood 162 mg/dL (60-115)
[2020-11-25 00:24] LABS: Glucose, Whole Blood 146 mg/dL (60-115)
[2020-11-25] MEDS: propofoL 1,000 MG/100 ML VIAL 26.94 MG IVCONT ×4 (01:52→23:44)
[2020-11-25] MEDS: Albumin Human 25 % 100 ML IV (01:55)
[2020-11-25 01:58] LABS: Glucose, Whole Blood 134 mg/dL (60-115)
[2020-11-25 04:20] LABS: Glucose, Whole Blood 127 mg/dL (60-115)
[2020-11-25 05:34] LABS: MANUAL DIFF FLAG SCAN; PLT CLUMP 1; SCAN SMEAR FLAG 1
[2020-11-25 05:36] LABS: Basophils Percent Auto 0.3 % (0-2); Eosinophils Absolute Auto 0.3 X10*3/uL (0.0-0.4); Eosinophils Percent Auto 3.3 % (0-4); Hematocrit 32.4 % (37-47); Imm Gran Abs Auto 0.31 X10*3/uL (0.00-0.03); Imm Gran Pct Auto 3.4 % (0.0-0.4); Lymphocytes Absolute Auto 0.7 X10*3/uL (1.2-4.9); Lymphocytes Percent Auto 7.2 % (20-40); Mean Corpuscular HGB Conc 30.9 g/dl (31.0-35.0); Mean Corpuscular Hemoglobin 25.3 pg (27.0-33.0); Mean Corpuscular Volume 81.8 fL (80-98); Monocytes Absolute Auto 0.3 X10*3/uL (0.1-1.2); Monocytes Percent Auto 3.2 % (2-11); Neutrophils Absolute Auto 7.5 X10*3/uL (2.0-8.3); Neutrophils Percent Auto 82.6 % (45-73); Platelet Count 146 X10*3/uL (160-400); Red Blood Count 3.96 X10*6/uL (4.20-5.50); Red Cell Distribution Width 16.6 % (11.0-16.0); White Blood Count 9.1 X10*3/uL (4.8-10.8)
[2020-11-25 05:38] LABS: VBG Base Excess 1.3 mmol/L; VBG HCO3 25 mmol/L (22-26); VBG pCO2 39 mmHg; VBG pH 7.41 (7.32-7.43); VBG pO2 61 mmHg
[2020-11-25 05:39] LABS: Venous Blood Gas Refer to POC result
[2020-11-25 06:00] LABS: SLIDE REVIEW VERIFIED
[2020-11-25 06:08] LABS: Albumin Level 3.4 g/dL (3.5-5.0); Blood Urea Nitrogen 43 mg/dL (9-16); Calcium 8.4 mg/dL (8.4-10.2); Creatinine Clr Calc Pharmacy 93.4; Estimated Glomerular Filt Rate > 60; Glucose Random 159 mg/dL (60-115); Magnesium 1.9 mg/dL (1.6-2.6)
[2020-11-25 06:15] LABS: Anion Gap 15 (12-20); Carbon Dioxide 26 mmol/L (22-29); Chloride 104 mmol/L (96-108); Potassium 3.8 mmol/L (3.3-5.1); Sodium 141 mmol/L (135-145)
[2020-11-25 06:26] LABS: Glucose, Whole Blood 134 mg/dL (60-115)
[2020-11-25 07:16] LABS: Glucose, Whole Blood 142 mg/dL (60-115)
[2020-11-25] MEDS: propofoL 1,000 MG/100 ML VIAL 44.91 MG IVCONT ×5 (08:45→17:54)
[2020-11-25 09:10] LABS: Glucose, Whole Blood 170 mg/dL (60-115)
[2020-11-25] MEDS: Apixaban 5 MG TABLET PO ×2 (09:21→20:28)
[2020-11-25] MEDS: Ascorbic Acid 500 MG TABLET PO ×2 (09:21→20:27)
[2020-11-25] MEDS: 0.9 % Sodium Chloride Flush 3 ML SYRINGE IVFLUSH ×2 (09:21→16:47)
[2020-11-25] MEDS: Metoprolol Tartrate 25 MG TABLET PO ×2 (09:21→20:28)
[2020-11-25] MEDS: Potassium Chloride/H20 40 MEQ/100 ML PIGGYBACK 100 MEQ IV (09:21)
[2020-11-25] MEDS: Famotidine/PF 20 MG/2 ML VIAL IVPUSH (09:22)
[2020-11-25] MEDS: Furosemide 40 MG/4 ML VIAL IVPUSH ×2 (09:22→17:54)
[2020-11-25] MEDS: Cholecalciferol (Vitamin D3) 25 MCG TABLET 50 MCG PO (09:22)
[2020-11-25] MEDS: Chlorhexidine Gluc Oral Rinse 15 ML MOUTHWASH BUCCAL ×3 (09:22→20:27)
[2020-11-25] MEDS: Nystatin Powder 15 GM BOTTLE 1 APPL TOPICAL ×2 (09:38→20:28)
[2020-11-25 10:59] LABS: Glucose, Whole Blood 175 mg/dL (60-115)
[2020-11-25 13:01] LABS: Glucose, Whole Blood 129 mg/dL (60-115)
--- NOTE | 2020-11-25 14:05 | MHC.CM.PN ---
Patient remains intubated/vented in ICU. Patient is from home with [employer] [facility] and [facility]. Continue to monitor for d/c needs.
--- NOTE | 2020-11-25 14:19 | PM.CCPN ---
Subjective Subjective Date of Service: 11/25/20 Interval History: 65-year-old lady with underlying multiple medical problems including coronary artery disease, diastolic congestive heart failure, right heart failure secondary to left heart failure, AFib on anticoagulation, COPD, hypertension, morbid obesity, diabetes admitted on 11/09/2020 with shortness of breath secondary to COVID-19. Patient has initially been admitted to general medical [facility] and treated with dexamethasone, however her FiO2 requirement continue to deteriorate requiring transfer to intensive care unit, intubation, and ventilatory support on 11/18/2020. Her sputum culture has been positive for stenotrophomonas which is likely a colonization. She has had an episode of AFib with RVR requiring cardioversion, now controlled on propafenone and metoprolol. No events overnight. FiO2 requirements fluctuating between 40% and 60%. Physical Exam Vital Signs: Vital Signs: Last Vital Signs Temp 99.7 F 11/25/20 14:00 Pulse 90 11/25/20 14:00 Resp 25 H 11/25/20 14:00 BP 138/58 L 11/25/20 14:00 Pulse Ox 89 L 11/25/20 14:00 Body Mass Index 53.2 Const: General: no acute distress and other (Sedated on the vent, arousable with sedation vacation) Nutritional Appearance: obese Eyes: Sclerae: sclerae normal EOM: EOMs intact bilaterally Neck: Neck: Yes no lymphadenopathy, Yes trachea midline and Yes supple Resp: Effort & Inspection: normal respiratory effort and no respiratory distress Auscultation: clear to auscultation bilaterally Cardio: Rate: regular rate Rhythm: regular rhythm Heart sounds: no gallops, no murmurs and no rubs GI: Palpation (GI): Soft to palpation and Other GI palpation findings present ( Nontender) Auscultation: normal bowel sounds Extrem: General: No clubbing, No cyanosis and Yes edema (1+ bilateral) Objective Data Labs CBC & Chem 7: 11/25/20 05:20 11/25/20 05:20 Labs: Laboratory Results - last 24 hr 11/24/20 11/24/20 11/24/20 15:12 16:00 18:50 WBC RBC Hgb Hct MCV MCH MCHC RDW Plt Count MPV Immature Gran % (Auto) Neut % (Auto) Lymph % (Auto) [place] % (Auto) Eos % (Auto) Baso % (Auto) Lymph # (Auto) [place] # (Auto) Eos # (Auto) Baso # (Auto) Abs Immat Gran (auto) Absolute Neuts (auto) Absolute Nucleated RBC Nucleated RBC % (auto) Smear Tech's Comments VBG pH VBG pCO2 VBG pO2 VBG HCO3 VBG O2 Saturation VBG Base Excess Sodium Potassium Chloride Carbon Dioxide Anion Gap BUN Creatinine Estim Creat Clear Calc Estimated GFR POC Glucose 153 H 136 H 174 H Random Glucose Calcium Phosphorus Magnesium Albumin 11/24/20 11/24/20 11/25/20 20:40 22:12 00:19 WBC RBC Hgb Hct MCV MCH MCHC RDW Plt Count MPV Immature Gran % (Auto) Neut % (Auto) Lymph % (Auto) [place] % (Auto) Eos % (Auto) Baso % (Auto) Lymph # (Auto) [place] # (Auto) Eos # (Auto) Baso # (Auto) Abs Immat Gran (auto) Absolute Neuts (auto) Absolute Nucleated RBC Nucleated RBC % (auto) Smear Tech's Comments VBG pH VBG pCO2 VBG pO2 VBG HCO3 VBG O2 Saturation VBG Base Excess Sodium Potassium Chloride Carbon Dioxide Anion Gap BUN Creatinine Estim Creat Clear Calc Estimated GFR POC Glucose 187 H 162 H 146 H Random Glucose Calcium Phosphorus Magnesium Albumin 11/25/20 11/25/20 11/25/20 01:51 04:14 05:20 WBC 9.1 RBC 3.96 L Hgb 10.0 L Hct 32.4 L MCV 81.8 MCH 25.3 L MCHC 30.9 L RDW 16.6 H Plt Count 146 L MPV 10.0 Immature Gran % (Auto) 3.4 H Neut % (Auto) 82.6 H Lymph % (Auto) 7.2 L [place] % (Auto) 3.2 Eos % (Auto) 3.3 Baso % (Auto) 0.3 Lymph # (Auto) 0.7 L [place] # (Auto) 0.3 Eos # (Auto) 0.3 Baso # (Auto) 0.0 Abs Immat Gran (auto) 0.31 H Absolute Neuts (auto) 7.5 Absolute Nucleated RBC 0.000 Nucleated RBC % (auto) 0.0 Smear Tech's Comments VERIFIED VBG pH VBG pCO2 VBG pO2 VBG HCO3 VBG O2 Saturation VBG Base Excess Sodium Potassium Chloride Carbon Dioxide Anion Gap BUN Creatinine Estim Creat Clear Calc Estimated GFR POC Glucose 134 H 127 H Random Glucose Calcium Phosphorus Magnesium Albumin 11/25/20 11/25/20 11/25/20 05:20 05:32 06:07 WBC RBC Hgb Hct MCV MCH MCHC RDW Plt Count MPV Immature Gran % (Auto) Neut % (Auto) Lymph % (Auto) [place] % (Auto) Eos % (Auto) Baso % (Auto) Lymph # (Auto) [place] # (Auto) Eos # (Auto) Baso # (Auto) Abs Immat Gran (auto) Absolute Neuts (auto) Absolute Nucleated RBC Nucleated RBC % (auto) Smear Tech's Comments VBG pH 7.41 VBG pCO2 39 VBG pO2 61 VBG HCO3 25 VBG O2 Saturation 89.0 VBG Base Excess 1.3 Sodium 141 Potassium 3.8 Chloride 104 Carbon Dioxide 26 Anion Gap 15 BUN 43 H Creatinine 0.88 Estim Creat Clear Calc 93.4 Estimated GFR > 60 POC Glucose 134 H Random Glucose 159 H Calcium 8.4 Phosphorus 5.0 H Magnesium 1.9 Albumin 3.4 L D 11/25/20 11/25/20 11/25/20 07:08 09:05 10:54 WBC RBC Hgb Hct MCV MCH MCHC RDW Plt Count MPV Immature Gran % (Auto) Neut % (Auto) Lymph % (Auto) [place] % (Auto) Eos % (Auto) Baso % (Auto) Lymph # (Auto) [place] # (Auto) Eos # (Auto) Baso # (Auto) Abs Immat Gran (auto) Absolute Neuts (auto) Absolute Nucleated RBC Nucleated RBC % (auto) Smear Tech's Comments VBG pH VBG pCO2 VBG pO2 VBG HCO3 VBG O2 Saturation VBG Base Excess Sodium Potassium Chloride Carbon Dioxide Anion Gap BUN Creatinine Estim Creat Clear Calc Estimated GFR POC Glucose 142 H 170 H 175 H Random Glucose Calcium Phosphorus Magnesium Albumin 11/25/20 12:54 WBC RBC Hgb Hct MCV MCH MCHC RDW Plt Count MPV Immature Gran % (Auto) Neut % (Auto) Lymph % (Auto) [place] % (Auto) Eos % (Auto) Baso % (Auto) Lymph # (Auto) [place] # (Auto) Eos # (Auto) Baso # (Auto) Abs Immat Gran (auto) Absolute Neuts (auto) Absolute Nucleated RBC Nucleated RBC % (auto) Smear Tech's Comments VBG pH VBG pCO2 VBG pO2 VBG HCO3 VBG O2 Saturation VBG Base Excess Sodium Potassium Chloride Carbon Dioxide Anion Gap BUN Creatinine Estim Creat Clear Calc Estimated GFR POC Glucose 129 H Random Glucose Calcium Phosphorus Magnesium Albumin Microbiology Microbiology Results: Microbiology 11/22/20 08:15 Sputum - Suctioned Gram Stain - Final 11/22/20 08:15 Sputum - Suctioned Sputum Culture - Final Stenotrophomonas maltophilia 11/09/20 19:57 Blood - Venous Blood Culture - Final Coag negative Staphylococcus 11/09/20 20:54 Blood - Venous Blood Culture - Final No growth after 5 days. Progress Note: A&P Assessment and plan (1) Acute respiratory failure with hypoxia: Status: Acute Assessment and Plan: Assessment: 65-year-old lady with multiple medical issues admitted with hypoxia secondary to COVID-19 ARDS now requiring ventilatory support. Plan: Neuro: No acute issues. Cardiac: Underlying diastolic dysfunction, right-sided heart failure, and paroxysmal fibrillation. Continue with rate and rhythm control with propafenone and metoprolol. Continue anticoagulation with apixaban. Continue with diuresis. Pulmonary: Acute hypoxic respiratory failure secondary to COVID-19 ARDS. Continue to titrate off ventilatory support as tolerated. Renal: No acute issues. Endo: No acute issues. GI: No acute issues. ID: Sputum culture with stenotrophomonas maltophilia, Levaquin susceptible, likely a colonization. Continue Levaquin. Will consider discontinuation of antibiotics in 24 hours if remains afebrile and leukocytosis continues to improve. COVID-19, status post dexamethasone. Heme/Onc: No acute issues. Psych: No acute issues. Miscellaneous: No acute issues. Prophylaxis: Apixaban, famotidine Diet: Tube feeds Critical care time spent: 60 minutes (2) Acute respiratory distress syndrome (ARDS) due to COVID-19 virus: Status: Acute (3) Type 2 diabetes mellitus with chronic kidney disease: Status: Acute (4) Chronic heart failure with preserved ejection fraction (HFpEF): Status: Acute (5) Right heart failure (secondary to left heart failure): Status: Acute (6) CAD (coronary artery disease): Status: Acute (7) Morbid obesity due to excess calories: Status: Acute Time Spent With Patient Total time spent with greater than 50% in coordination of care (as documented) at patient's floor/unit and/or counseling patient:: 0 Critical Care Time Critical Care Time (minutes): 60
--- NOTE | 2020-11-25 14:50 | PC.NURSE ---
Pt is responding well to diuresis. She remains sedated on the ventilator. This morning at 8am was having low TV and increased rate on PC setting. She required an increase in her peak inspiratory pressure setting to allow for improved vent synchrony. Family updated on patient's status by this RN and MD.
[2020-11-25] MEDS: levoFLOXacin/D5W 750 MG/150 ML PIGGYBACK 100 MG IV (15:09)
[2020-11-25] MEDS: Insulin Regular/NS 100 UNIT/100 ML PLAST..BAG IVCONT (15:10)
--- NOTE | 2020-11-25 15:23 | P.PNID_ITS ---
Subjective Subjective Date of Service: 11/25/20 Interval History: she has stenotrophomonas sputum Objective Data Labs CBC & Chem 7: 11/25/20 05:20 11/25/20 05:20 Labs: Laboratory Results - last 24 hr 11/24/20 11/24/20 11/24/20 15:12 16:00 18:50 WBC RBC Hgb Hct MCV MCH MCHC RDW Plt Count MPV Immature Gran % (Auto) Neut % (Auto) Lymph % (Auto) Gregory % (Auto) Eos % (Auto) Baso % (Auto) Lymph # (Auto) Gregory # (Auto) Eos # (Auto) Baso # (Auto) Abs Immat Gran (auto) Absolute Neuts (auto) Absolute Nucleated RBC Nucleated RBC % (auto) Smear Tech's Comments VBG pH VBG pCO2 VBG pO2 VBG HCO3 VBG O2 Saturation VBG Base Excess Sodium Potassium Chloride Carbon Dioxide Anion Gap BUN Creatinine Estim Creat Clear Calc Estimated GFR POC Glucose 153 H 136 H 174 H Random Glucose Calcium Phosphorus Magnesium Albumin 11/24/20 11/24/20 11/25/20 20:40 22:12 00:19 WBC RBC Hgb Hct MCV MCH MCHC RDW Plt Count MPV Immature Gran % (Auto) Neut % (Auto) Lymph % (Auto) Gregory % (Auto) Eos % (Auto) Baso % (Auto) Lymph # (Auto) Gregory # (Auto) Eos # (Auto) Baso # (Auto) Abs Immat Gran (auto) Absolute Neuts (auto) Absolute Nucleated RBC Nucleated RBC % (auto) Smear Tech's Comments VBG pH VBG pCO2 VBG pO2 VBG HCO3 VBG O2 Saturation VBG Base Excess Sodium Potassium Chloride Carbon Dioxide Anion Gap BUN Creatinine Estim Creat Clear Calc Estimated GFR POC Glucose 187 H 162 H 146 H Random Glucose Calcium Phosphorus Magnesium Albumin 11/25/20 11/25/20 11/25/20 01:51 04:14 05:20 WBC 9.1 RBC 3.96 L Hgb 10.0 L Hct 32.4 L MCV 81.8 MCH 25.3 L MCHC 30.9 L RDW 16.6 H Plt Count 146 L MPV 10.0 Immature Gran % (Auto) 3.4 H Neut % (Auto) 82.6 H Lymph % (Auto) 7.2 L Gregory % (Auto) 3.2 Eos % (Auto) 3.3 Baso % (Auto) 0.3 Lymph # (Auto) 0.7 L Gregory # (Auto) 0.3 Eos # (Auto) 0.3 Baso # (Auto) 0.0 Abs Immat Gran (auto) 0.31 H Absolute Neuts (auto) 7.5 Absolute Nucleated RBC 0.000 Nucleated RBC % (auto) 0.0 Smear Tech's Comments VERIFIED VBG pH VBG pCO2 VBG pO2 VBG HCO3 VBG O2 Saturation VBG Base Excess Sodium Potassium Chloride Carbon Dioxide Anion Gap BUN Creatinine Estim Creat Clear Calc Estimated GFR POC Glucose 134 H 127 H Random Glucose Calcium Phosphorus Magnesium Albumin 11/25/20 11/25/20 11/25/20 05:20 05:32 06:07 WBC RBC Hgb Hct MCV MCH MCHC RDW Plt Count MPV Immature Gran % (Auto) Neut % (Auto) Lymph % (Auto) Gregory % (Auto) Eos % (Auto) Baso % (Auto) Lymph # (Auto) Gregory # (Auto) Eos # (Auto) Baso # (Auto) Abs Immat Gran (auto) Absolute Neuts (auto) Absolute Nucleated RBC Nucleated RBC % (auto) Smear Tech's Comments VBG pH 7.41 VBG pCO2 39 VBG pO2 61 VBG HCO3 25 VBG O2 Saturation 89.0 VBG Base Excess 1.3 Sodium 141 Potassium 3.8 Chloride 104 Carbon Dioxide 26 Anion Gap 15 BUN 43 H Creatinine 0.88 Estim Creat Clear Calc 93.4 Estimated GFR > 60 POC Glucose 134 H Random Glucose 159 H Calcium 8.4 Phosphorus 5.0 H Magnesium 1.9 Albumin 3.4 L D 11/25/20 11/25/20 11/25/20 07:08 09:05 10:54 WBC RBC Hgb Hct MCV MCH MCHC RDW Plt Count MPV Immature Gran % (Auto) Neut % (Auto) Lymph % (Auto) Gregory % (Auto) Eos % (Auto) Baso % (Auto) Lymph # (Auto) Gregory # (Auto) Eos # (Auto) Baso # (Auto) Abs Immat Gran (auto) Absolute Neuts (auto) Absolute Nucleated RBC Nucleated RBC % (auto) Smear Tech's Comments VBG pH VBG pCO2 VBG pO2 VBG HCO3 VBG O2 Saturation VBG Base Excess Sodium Potassium Chloride Carbon Dioxide Anion Gap BUN Creatinine Estim Creat Clear Calc Estimated GFR POC Glucose 142 H 170 H 175 H Random Glucose Calcium Phosphorus Magnesium Albumin 11/25/20 12:54 WBC RBC Hgb Hct MCV MCH MCHC RDW Plt Count MPV Immature Gran % (Auto) Neut % (Auto) Lymph % (Auto) Gregory % (Auto) Eos % (Auto) Baso % (Auto) Lymph # (Auto) Gregory # (Auto) Eos # (Auto) Baso # (Auto) Abs Immat Gran (auto) Absolute Neuts (auto) Absolute Nucleated RBC Nucleated RBC % (auto) Smear Tech's Comments VBG pH VBG pCO2 VBG pO2 VBG HCO3 VBG O2 Saturation VBG Base Excess Sodium Potassium Chloride Carbon Dioxide Anion Gap BUN Creatinine Estim Creat Clear Calc Estimated GFR POC Glucose 129 H Random Glucose Calcium Phosphorus Magnesium Albumin Microbiology Microbiology Results: Microbiology 11/22/20 08:15 Sputum - Suctioned Gram Stain - Final 11/22/20 08:15 Sputum - Suctioned Sputum Culture - Final Stenotrophomonas maltophilia 11/09/20 19:57 Blood - Venous Blood Culture - Final Coag negative Staphylococcus 11/09/20 20:54 Blood - Venous Blood Culture - Final No growth after 5 days. Physical Exam Vital Signs: Vital Signs: Last Vital Signs Temp 99.5 F 11/25/20 15:00 Pulse 84 11/25/20 15:00 Resp 21 H 11/25/20 15:00 BP 133/54 L 11/25/20 15:00 Pulse Ox 91 L 11/25/20 15:00 Body Mass Index 53.2 Const: General: cooperative HENMT: Head: Yes normal to inspection Mouth: Normal oral and palatal mucosa present Eyes: General: appearance normal, both eyes and all related structures Resp: Effort & Inspection: normal respiratory effort Cardio: Rate: regular rate Rhythm: regular rhythm GI: Palpation (GI): Soft to palpation and nontender Extrem: General: Yes normal to inspection Assessment and Plan Assessment and plan (1) Infection due to Stenotrophomonas maltophilia: Problem details: She has organism in sputum sensitive to Levaquin Status: Acute Assessment and Plan: Would give Levaquin 10 d Time Spent With Patient Time: Total time spent is greater than 50% in coordination of care (as documented) at patient's floor/unit and/or counseling patient: Time with patient: 15 - 24 minutes
[2020-11-25 16:14] LABS: Glucose, Whole Blood 156 mg/dL (60-115)
[2020-11-25 17:11] LABS: Glucose, Whole Blood 201 mg/dL (60-115)
[2020-11-25 18:59] LABS: Glucose, Whole Blood 221 mg/dL (60-115)
[2020-11-25 21:40] LABS: Glucose, Whole Blood 167 mg/dL (60-115)
[2020-11-25 23:12] LABS: Glucose, Whole Blood 187 mg/dL (60-115)
[2020-11-26] VITALS (34 sets, daily range): BP systolic 90–170; BP diastolic 41–82; PULSE 77–100; RESP 18–30; TEMP 36.6–37.3; O2SAT 3–100
[2020-11-26] MEDS: propofoL 1,000 MG/100 ML VIAL 26.94 MG IVCONT ×3 (04:00→22:31)
[2020-11-26 04:48] LABS: Glucose, Whole Blood 171 mg/dL (60-115)
[2020-11-26 04:48] LABS: Glucose, Whole Blood 165 mg/dL (60-115)
[2020-11-26 05:08] LABS: Glucose, Whole Blood 166 mg/dL (60-115)
[2020-11-26 05:46] LABS: VBG Base Excess 1.2 mmol/L; VBG HCO3 25 mmol/L (22-26); VBG pCO2 40 mmHg; VBG pH 7.41 (7.32-7.43); VBG pO2 48 mmHg
[2020-11-26 05:53] LABS: Hematocrit 33.4 % (37-47); Hemoglobin 10.3 g/dl (12.0-16.0); Mean Corpuscular HGB Conc 30.8 g/dl (31.0-35.0); Mean Corpuscular Hemoglobin 25.4 pg (27.0-33.0); Mean Corpuscular Volume 82.3 fL (80-98); Mean Platelet Volume 10.1 fL (9.4-12.3); Platelet Count 153 X10*3/uL (160-400); Red Blood Count 4.06 X10*6/uL (4.20-5.50); Red Cell Distribution Width 16.6 % (11.0-16.0); White Blood Count 8.5 X10*3/uL (4.8-10.8)
[2020-11-26 06:16] LABS: Albumin Level 3.1 g/dL (3.5-5.0); Anion Gap 13 (12-20); Blood Urea Nitrogen 39 mg/dL (9-16); Calcium 8.3 mg/dL (8.4-10.2); Carbon Dioxide 28 mmol/L (22-29); Chloride 102 mmol/L (96-108); Creatinine Clr Calc Pharmacy 84.7; Estimated Glomerular Filt Rate 57; Glucose Random 183 mg/dL (60-115); Magnesium 1.9 mg/dL (1.6-2.6); Phosphorus 4.5 mg/dL (2.7-4.5); Potassium 3.9 mmol/L (3.3-5.1); Sodium 139 mmol/L (135-145)
[2020-11-26 06:32] LABS: Venous Blood Gas Refer to POC result
[2020-11-26 06:42] LABS: Band Neutrophils Percent 3 % (3-5); Eosinophils Absolute Manual 0.2 X10*3/UL (0.0-0.8); Eosinophils Percent Manual 2 % (0-4); Lymphocytes Absolute Manual 0.3 X10*3/uL (0.6-4.8); Lymphocytes Percent Manual 3 % (20-40); Metamyelocytes Absolute 0.3 X10*3/uL; Metamyelocytes Percent 4 %; Monocytes Absolute Manual 0.5 X10*3/uL (0.0-1.2); Monocytes Percent Manual 6 % (2-11); Neutrophils Absolute Manual 7.2 X10*3/uL (2.2-7.9); Neutrophils Percent Manual 82 % (45-73)
[2020-11-26 06:43] LABS: Burr Cells 1+; Hypochromasia 1+; Ovalocytes 1+; Platelet Estimate SLIGHTLY DECREASED (NORMAL); RBC Morphology NOTED
[2020-11-26 06:44] LABS: Large Platelet PRESENT; Platelet Morphology Comment NOTED
[2020-11-26 07:02] LABS: Glucose, Whole Blood 122 mg/dL (60-115)
[2020-11-26] MEDS: Chlorhexidine Gluc Oral Rinse 15 ML MOUTHWASH BUCCAL ×3 (07:27→20:43)
[2020-11-26] MEDS: Furosemide 40 MG/4 ML VIAL IVPUSH ×2 (07:27→17:13)
[2020-11-26] MEDS: Famotidine/PF 20 MG/2 ML VIAL IVPUSH (07:31)
[2020-11-26] MEDS: Ascorbic Acid 500 MG TABLET PO ×2 (07:32→20:43)
[2020-11-26] MEDS: Cholecalciferol (Vitamin D3) 25 MCG TABLET 50 MCG PO (07:32)
[2020-11-26] MEDS: 0.9 % Sodium Chloride Flush 3 ML SYRINGE IVFLUSH ×2 (07:33→15:55)
[2020-11-26] MEDS: Apixaban 5 MG TABLET PO ×2 (07:33→21:00)
[2020-11-26] MEDS: Insulin Regular/NS 100 UNIT/100 ML PLAST..BAG IVCONT (07:36)
[2020-11-26] MEDS: Metoprolol Tartrate 25 MG TABLET PO ×2 (08:25→20:43)
[2020-11-26] MEDS: Nystatin Powder 15 GM BOTTLE 1 APPL TOPICAL ×2 (08:26→20:43)
[2020-11-26 08:56] LABS: Glucose, Whole Blood 129 mg/dL (60-115)
[2020-11-26] MEDS: propofoL 1,000 MG/100 ML VIAL 13.47 MG IVCONT (10:19)
[2020-11-26 11:05] LABS: Glucose, Whole Blood 181 mg/dL (60-115)
--- NOTE | 2020-11-26 11:23 | MHC.CLN ---
F/U F/U PT RECEIVING GLUCERNA AT MAX GOAL 50CC/HR WITH 30CC PROSOURCE BID AND 120CC FREE WATER FLUSHES Q 4HRS PROVIDES 1320KCALS (1911 WITH SEDATION; 32KCALS/KG), 80G PROTEIN (1.4G/KG), 1744CC TOTAL WATER FROM FORMULA AND FLUSH MONITOR TOLERANCE, RESIDUALS AND LYTES
[2020-11-26 13:09] LABS: Glucose, Whole Blood 211 mg/dL (60-115)
--- NOTE | 2020-11-26 13:26 | MHC.CM.PN ---
Patient remains intubated/vented in ICU. Patient is from home with [facility] and [facility]. Continue to monitor for d/c needs.
--- NOTE | 2020-11-26 15:14 | PC.NURSE ---
Pt continues on propofol for sedation, sedation vacation this shift, propofol cut in half, pt easily arousable, opens eyes and nods appropriately, moving all extremties with weakness, RR increasing, continues on 55% fio2, o2 sat trending 90-92%, MD aware, sedation returned and titrated for patient comfort, restraints remain for patient safety bloody inline secretions noted this afternoon, MD aware lasix given this shift, 1300ml of urine output family updated by this RN
[2020-11-26 15:21] LABS: Glucose, Whole Blood 189 mg/dL (60-115)
[2020-11-26] MEDS: propofoL 1,000 MG/100 ML VIAL 31.43 MG IVCONT ×2 (15:54→19:03)
[2020-11-26] MEDS: levoFLOXacin/D5W 750 MG/150 ML PIGGYBACK 100 MG IV (15:55)
--- NOTE | 2020-11-26 16:40 | P.PNCC_ITS ---
Subjective Subjective Date of Service: 11/26/20 Interval History: 65-year-old lady with underlying multiple medical problems including coronary artery disease, diastolic congestive heart failure, right heart failure secondary to left heart failure, AFib on anticoagulation, COPD, hypertension, morbid obesity, diabetes admitted on 11/09/2020 with shortness of breath secondary to COVID-19. Patient has initially been admitted to general medical [facility] and treated with dexamethasone, however her FiO2 requirement continue to deteriorate requiring transfer to intensive care unit, intubation, and ventilatory support on 11/18/2020. Her sputum culture has been positive for stenotrophomonas which is likely a colonization. She has had an episode of AFib with RVR requiring cardioversion, now controlled on propafenone and metoprolol. No events overnight. Physical Exam Vital Signs: Vital Signs: Last Vital Signs Temp 98.4 F 11/26/20 16:00 Pulse 94 11/26/20 16:00 Resp 30 H 11/26/20 16:00 BP 170/82 H 11/26/20 16:00 Pulse Ox 92 11/26/20 16:00 Body Mass Index 53.2 Const: General: no acute distress and other (Sedated on the vent, follows commands with sedation vacation) Eyes: Sclerae: sclerae normal EOM: EOMs intact bilaterally Neck: Neck: Yes no lymphadenopathy, Yes trachea midline and Yes supple Resp: Auscultation: crackles (Bibasilar) Cardio: Rate: regular rate Rhythm: regular rhythm Heart sounds: no gallops, no murmurs and no rubs GI: Palpation (GI): Soft to palpation and Other GI palpation findings present ( Nontender) Auscultation: normal bowel sounds Extrem: General: No clubbing, No cyanosis and Yes edema (1+ bilateral) Objective Data Labs CBC & Chem 7: 11/26/20 05:30 11/26/20 05:30 Labs: Laboratory Results - last 24 hr 11/25/20 11/25/20 11/25/20 17:07 18:54 20:58 WBC RBC Hgb Hct MCV MCH MCHC RDW Plt Count MPV Immature Gran % (Auto) Neut % (Auto) Lymph % (Auto) Am[place] % (Auto) Eos % (Auto) Baso % (Auto) Lymph # (Auto) [place] # (Auto) Eos # (Auto) Baso # (Auto) Abs Immat Gran (auto) Absolute Neuts (auto) Absolute Nucleated RBC Nucleated RBC % (auto) Neutrophils % (Manual) Band Neutrophils % Lymphocytes % (Manual) Monocytes % (Manual) Eosinophils % (Manual) Metamyelocytes % Abs Neuts (Manual) Lymphocytes # (Manual) Monocytes # (Manual) Eosinophils # (Manual) Metamyelocytes # Platelet Estimate Large Platelets Plt Morphology Comment RBC Morphology Hypochromasia Ovalocytes Paige Cells VBG pH VBG pCO2 VBG pO2 VBG HCO3 VBG O2 Saturation VBG Base Excess Sodium Potassium Chloride Carbon Dioxide Anion Gap BUN Creatinine Estim Creat Clear Calc Estimated GFR POC Glucose 201 H 221 H 167 H Random Glucose Calcium Phosphorus Magnesium Albumin 11/25/20 11/26/20 11/26/20 22:28 01:15 02:54 WBC RBC Hgb Hct MCV MCH MCHC RDW Plt Count MPV Immature Gran % (Auto) Neut % (Auto) Lymph % (Auto) [place] % (Auto) Eos % (Auto) Baso % (Auto) Lymph # (Auto) [place] # (Auto) Eos # (Auto) Baso # (Auto) Abs Immat Gran (auto) Absolute Neuts (auto) Absolute Nucleated RBC Nucleated RBC % (auto) Neutrophils % (Manual) Band Neutrophils % Lymphocytes % (Manual) Monocytes % (Manual) Eosinophils % (Manual) Metamyelocytes % Abs Neuts (Manual) Lymphocytes # (Manual) Monocytes # (Manual) Eosinophils # (Manual) Metamyelocytes # Platelet Estimate Large Platelets Plt Morphology Comment RBC Morphology Hypochromasia Ovalocytes [place] Cells VBG pH VBG pCO2 VBG pO2 VBG HCO3 VBG O2 Saturation VBG Base Excess Sodium Potassium Chloride Carbon Dioxide Anion Gap BUN Creatinine Estim Creat Clear Calc Estimated GFR POC Glucose 187 H 171 H 165 H Random Glucose Calcium Phosphorus Magnesium Albumin 11/26/20 11/26/20 11/26/20 04:59 05:30 05:30 WBC 8.5 RBC 4.06 L Hgb 10.3 L Hct 33.4 L MCV 82.3 MCH 25.4 L MCHC 30.8 L RDW 16.6 H Plt Count 153 L MPV 10.1 Immature Gran % (Auto) Cancelled Neut % (Auto) Cancelled Lymph % (Auto) Cancelled [place] % (Auto) Cancelled Eos % (Auto) Cancelled Baso % (Auto) Cancelled Lymph # (Auto) Cancelled [place] # (Auto) Cancelled Eos # (Auto) Cancelled Baso # (Auto) Cancelled Abs Immat Gran (auto) Cancelled Absolute Neuts (auto) Cancelled Absolute Nucleated RBC 0.000 Nucleated RBC % (auto) 0.0 Neutrophils % (Manual) 82 H Band Neutrophils % 3 Lymphocytes % (Manual) 3 L Monocytes % (Manual) 6 Eosinophils % (Manual) 2 Metamyelocytes % 4 Abs Neuts (Manual) 7.2 Lymphocytes # (Manual) 0.3 L Monocytes # (Manual) 0.5 Eosinophils # (Manual) 0.2 Metamyelocytes # 0.3 Platelet Estimate SLIGHTLY DECREASED Large Platelets PRESENT Plt Morphology Comment NOTED RBC Morphology NOTED Hypochromasia 1+ Ovalocytes 1+ [place] Cells 1+ VBG pH VBG pCO2 VBG pO2 VBG HCO3 VBG O2 Saturation VBG Base Excess Sodium 139 Potassium 3.9 Chloride 102 Carbon Dioxide 28 Anion Gap 13 BUN 39 H Creatinine 0.97 Estim Creat Clear Calc 84.7 Estimated GFR 57 POC Glucose 166 H Random Glucose 183 H Calcium 8.3 L Phosphorus 4.5 Magnesium 1.9 Albumin 3.1 L 11/26/20 11/26/20 11/26/20 05:40 06:54 08:51 WBC RBC Hgb Hct MCV MCH MCHC RDW Plt Count MPV Immature Gran % (Auto) Neut % (Auto) Lymph % (Auto) [place] % (Auto) Eos % (Auto) Baso % (Auto) Lymph # (Auto) [place] # (Auto) Eos # (Auto) Baso # (Auto) Abs Immat Gran (auto) Absolute Neuts (auto) Absolute Nucleated RBC Nucleated RBC % (auto) Neutrophils % (Manual) Band Neutrophils % Lymphocytes % (Manual) Monocytes % (Manual) Eosinophils % (Manual) Metamyelocytes % Abs Neuts (Manual) Lymphocytes # (Manual) Monocytes # (Manual) Eosinophils # (Manual) Metamyelocytes # Platelet Estimate Large Platelets Plt Morphology Comment RBC Morphology Hypochromasia Ovalocytes Paige Cells VBG pH 7.41 VBG pCO2 40 VBG pO2 48 VBG HCO3 25 VBG O2 Saturation 79.0 VBG Base Excess 1.2 Sodium Potassium Chloride Carbon Dioxide Anion Gap BUN Creatinine Estim Creat Clear Calc Estimated GFR POC Glucose 122 H 129 H Random Glucose Calcium Phosphorus Magnesium Albumin 11/26/20 11/26/20 11/26/20 11:01 13:00 15:14 WBC RBC Hgb Hct MCV MCH MCHC RDW Plt Count MPV Immature Gran % (Auto) Neut % (Auto) Lymph % (Auto) [place] % (Auto) Eos % (Auto) Baso % (Auto) Lymph # (Auto) [place] # (Auto) Eos # (Auto) Baso # (Auto) Abs Immat Gran (auto) Absolute Neuts (auto) Absolute Nucleated RBC Nucleated RBC % (auto) Neutrophils % (Manual) Band Neutrophils % Lymphocytes % (Manual) Monocytes % (Manual) Eosinophils % (Manual) Metamyelocytes % Abs Neuts (Manual) Lymphocytes # (Manual) Monocytes # (Manual) Eosinophils # (Manual) Metamyelocytes # Platelet Estimate Large Platelets Plt Morphology Comment RBC Morphology Hypochromasia Ovalocytes Paige Cells VBG pH VBG pCO2 VBG pO2 VBG HCO3 VBG O2 Saturation VBG Base Excess Sodium Potassium Chloride Carbon Dioxide Anion Gap BUN Creatinine Estim Creat Clear Calc Estimated GFR POC Glucose 181 H 211 H 189 H Random Glucose Calcium Phosphorus Magnesium Albumin Microbiology Microbiology Results: Microbiology 11/22/20 08:15 Sputum - Suctioned Gram Stain - Final 11/22/20 08:15 Sputum - Suctioned Sputum Culture - Final Stenotrophomonas maltophilia 11/09/20 19:57 Blood - Venous Blood Culture - Final Coag negative Staphylococcus 11/09/20 20:54 Blood - Venous Blood Culture - Final No growth after 5 days. Progress Note: A&P Assessment and plan (1) Acute respiratory failure with hypoxia: Status: Acute Assessment and Plan: Assessment: 65-year-old lady with multiple medical issues admitted with hypoxia secondary to COVID-19 ARDS now requiring ventilatory support. Plan: Neuro: No acute issues. Cardiac: Underlying diastolic dysfunction, right-sided heart failure, and par oxysmal fibrillation. Continue with rate and rhythm control with propafenone and metoprolol. Continue anticoagulation with apixaban. Continue with diuresis. Pulmonary: Acute hypoxic respiratory failure secondary to COVID-19 ARDS. Continue to titrate off ventilatory support as tolerated. Renal: No acute issues. Endo: No acute issues. GI: No acute issues. ID: Sputum culture with stenotrophomonas maltophilia, Levaquin susceptible, likely a colonization. Will monitor off antibiotics. COVID-19, status post dexamethasone. Heme/Onc: No acute issues. Psych: No acute issues. Miscellaneous: No acute issues. Prophylaxis: Apixaban, famotidine Diet: Tube feeds Critical care time spent: 60 minutes (2) Acute respiratory distress syndrome (ARDS) due to COVID-19 virus: Status: Acute (3) Right heart failure (secondary to left heart failure): Status: Acute (4) Chronic heart failure with preserved ejection fraction (HFpEF): Status: Acute (5) Type 2 diabetes mellitus with chronic kidney disease: Status: Acute Time Spent With Patient Total time spent with greater than 50% in coordination of care (as documented) at patient's floor/unit and/or counseling patient:: 0 Critical Care Time Critical Care Time (minutes): 60
[2020-11-26 17:30] LABS: Glucose, Whole Blood 234 mg/dL (60-115)
[2020-11-26 19:14] LABS: Glucose, Whole Blood 230 mg/dL (60-115)
[2020-11-26 21:19] LABS: Glucose, Whole Blood 208 mg/dL (60-115)
[2020-11-27] VITALS (32 sets, daily range): BP systolic 107–169; BP diastolic 46–71; PULSE 74–118; RESP 18–30; TEMP 36.1–37.1; O2SAT 83–100
[2020-11-27 01:06] LABS: Glucose, Whole Blood 88 mg/dL (60-115)
[2020-11-27] MEDS: 0.9 % Sodium Chloride Flush 3 ML SYRINGE IVFLUSH ×4 (01:32→23:18)
[2020-11-27] MEDS: propofoL 1,000 MG/100 ML VIAL 26.94 MG IVCONT ×3 (01:32→21:36)
[2020-11-27 02:34] LABS: Glucose, Whole Blood 102 mg/dL (60-115)
[2020-11-27 03:53] LABS: Glucose, Whole Blood 163 mg/dL (60-115)
[2020-11-27] MEDS: propofoL 1,000 MG/100 ML VIAL 22.45 MG IVCONT ×2 (05:11→09:02)
[2020-11-27 05:13] LABS: Glucose, Whole Blood 201 mg/dL (60-115)
[2020-11-27 05:59] LABS: Venous Blood Gas Refer to POC result
[2020-11-27 05:59] LABS: VBG Base Excess -2.5 mmol/L; VBG HCO3 22 mmol/L (22-26); VBG pCO2 37 mmHg; VBG pH 7.37 (7.32-7.43); VBG pO2 60 mmHg
[2020-11-27 06:03] LABS: Hematocrit 34.2 % (37-47); Hemoglobin 10.5 g/dl (12.0-16.0); Mean Corpuscular HGB Conc 30.7 g/dl (31.0-35.0); Mean Corpuscular Hemoglobin 25.5 pg (27.0-33.0); Mean Corpuscular Volume 83.2 fL (80-98); Mean Platelet Volume 10.5 fL (9.4-12.3); Platelet Count 160 X10*3/uL (160-400); Red Blood Count 4.11 X10*6/uL (4.20-5.50); Red Cell Distribution Width 16.4 % (11.0-16.0); White Blood Count 10.1 X10*3/uL (4.8-10.8)
[2020-11-27 06:28] LABS: Band Neutrophils Percent 3 % (3-5); Basophils Abs Manual 0.1 X10*3/uL (0.0-0.3); Basophils Percent Manual 1 % (0-1); Eosinophils Absolute Manual 0.6 X10*3/UL (0.0-0.8); Eosinophils Percent Manual 6 % (0-4); Lymphocytes Absolute Manual 0.7 X10*3/uL (0.6-4.8); Lymphocytes Percent Manual 7 % (20-40); Metamyelocytes Absolute 0.2 X10*3/uL; Metamyelocytes Percent 2 %; Monocytes Absolute Manual 0.4 X10*3/uL (0.0-1.2); Monocytes Percent Manual 4 % (2-11); Neutrophils Absolute Manual 8.1 X10*3/uL (2.2-7.9); Neutrophils Percent Manual 77 % (45-73); RBC Morphology NOTED
[2020-11-27 06:29] LABS: Burr Cells 1+; Ovalocytes 1+
[2020-11-27 06:30] LABS: Platelet Estimate NORMAL (NORMAL); Platelet Morphology Comment NORMAL
[2020-11-27 06:31] LABS: Anion Gap 16 (12-20); Blood Urea Nitrogen 38 mg/dL (9-16); Calcium 8.5 mg/dL (8.4-10.2); Carbon Dioxide 26 mmol/L (22-29); Chloride 98 mmol/L (96-108); Creatinine Clr Calc Pharmacy 86.5; Estimated Glomerular Filt Rate 59; Glucose Random 284 mg/dL (60-115); Magnesium 1.7 mg/dL (1.6-2.6); Phosphorus 4.3 mg/dL (2.7-4.5); Potassium 3.8 mmol/L (3.3-5.1); Sodium 136 mmol/L (135-145)
[2020-11-27] MEDS: Insulin Regular/NS 100 UNIT/100 ML PLAST..BAG 6 UNIT IVCONT (07:17)
[2020-11-27] MEDS: Apixaban 5 MG TABLET PO (07:31)
[2020-11-27] MEDS: Ascorbic Acid 500 MG TABLET PO ×2 (07:31→21:37)
[2020-11-27] MEDS: Famotidine/PF 20 MG/2 ML VIAL IVPUSH (07:31)
[2020-11-27] MEDS: Cholecalciferol (Vitamin D3) 25 MCG TABLET 50 MCG PO (07:31)
[2020-11-27] MEDS: Furosemide 40 MG/4 ML VIAL IVPUSH ×2 (07:31→16:27)
[2020-11-27] MEDS: Chlorhexidine Gluc Oral Rinse 15 ML MOUTHWASH BUCCAL ×3 (07:31→21:37)
[2020-11-27] MEDS: Nystatin Powder 15 GM BOTTLE 1 APPL TOPICAL ×2 (07:32→21:37)
[2020-11-27] MEDS: Metoprolol Tartrate 25 MG TABLET PO ×2 (07:33→21:37)
[2020-11-27 08:12] LABS: Glucose, Whole Blood 237 mg/dL (60-115)
[2020-11-27 08:12] LABS: Glucose, Whole Blood 232 mg/dL (60-115)
[2020-11-27 08:53] LABS: Glucose, Whole Blood 242 mg/dL (60-115)
[2020-11-27] MEDS: Albumin Human 25 % 100 ML IV ×3 (09:02→19:32)
[2020-11-27] MEDS: Magnesium Sulfate/H2O 2 GM/50 ML PIGGYBACK IV (09:03)
[2020-11-27 10:31] LABS: Glucose, Whole Blood 204 mg/dL (60-115)
[2020-11-27 11:04] LABS: Glucose, Whole Blood 159 mg/dL (60-115)
[2020-11-27 12:09] LABS: Glucose, Whole Blood 173 mg/dL (60-115)
[2020-11-27] MEDS: propofoL 1,000 MG/100 ML VIAL 8.98 MG IVCONT (12:27)
[2020-11-27 14:01] LABS: Glucose, Whole Blood 187 mg/dL (60-115)
--- NOTE | 2020-11-27 15:04 | PM.CCPN ---
Subjective Subjective Date of Service: 11/27/20 Interval History: 65-year-old lady with underlying multiple medical problems including coronary artery disease, diastolic congestive heart failure, right heart failure secondary to left heart failure, AFib on anticoagulation, COPD, hypertension, morbid obesity, diabetes admitted on 11/09/2020 with shortness of breath secondary to COVID-19. Patient has initially been admitted to general medical [facility] and treated with dexamethasone, however her FiO2 requirement continue to deteriorate requiring transfer to intensive care unit, intubation, and ventilatory support on 11/18/2020. Her sputum culture has been positive for stenotrophomonas which is likely a colonization. She has had an episode of AFib with RVR requiring cardioversion, now controlled on propafenone and metoprolol. No events overnight. FiO2 requirements are slowly improving. Physical Exam Vital Signs: Vital Signs: Last Vital Signs Temp 98.1 F 11/27/20 14:00 Pulse 89 11/27/20 14:00 Resp 23 H 11/27/20 14:00 BP 145/62 H 11/27/20 14:00 Pulse Ox 92 11/27/20 14:00 Body Mass Index 53.2 Const: General: no acute distress and other (Sedated on the vent, arousable with sedation vacation) Nutritional Appearance: obese Eyes: Sclerae: sclerae normal EOM: EOMs intact bilaterally Neck: Neck: Yes no lymphadenopathy, Yes trachea midline and Yes supple Resp: Effort & Inspection: normal respiratory effort and no respiratory distress Auscultation: clear to auscultation bilaterally Cardio: Rate: tachycardic Rhythm: regular rhythm Heart sounds: no gallops, no murmurs and no rubs GI: Palpation (GI): Soft to palpation and Other GI palpation findings present ( Nontender) Auscultation: normal bowel sounds Extrem: General: No clubbing, No cyanosis and Yes edema (1+ bilateral) Objective Data Labs CBC & Chem 7: 11/27/20 05:45 11/27/20 05:45 Labs: Laboratory Results - last 24 hr 11/26/20 11/26/20 11/26/20 15:14 17:16 19:07 WBC RBC Hgb Hct MCV MCH MCHC RDW Plt Count MPV Immature Gran % (Auto) Neut % (Auto) Lymph % (Auto) [place] % (Auto) Eos % (Auto) Baso % (Auto) Lymph # (Auto) [place] # (Auto) Eos # (Auto) Baso # (Auto) Abs Immat Gran (auto) Absolute Neuts (auto) Absolute Nucleated RBC Nucleated RBC % (auto) Neutrophils % (Manual) Band Neutrophils % Lymphocytes % (Manual) Monocytes % (Manual) Eosinophils % (Manual) Basophils % (Manual) Metamyelocytes % Abs Neuts (Manual) Lymphocytes # (Manual) Monocytes # (Manual) Eosinophils # (Manual) Basophils # (Manual) Metamyelocytes # Platelet Estimate Plt Morphology Comment RBC Morphology Ovalocytes [place] Cells VBG pH VBG pCO2 VBG pO2 VBG HCO3 VBG O2 Saturation VBG Base Excess Sodium Potassium Chloride Carbon Dioxide Anion Gap BUN Creatinine Estim Creat Clear Calc Estimated GFR POC Glucose 189 H 234 H 230 H Random Glucose Calcium Phosphorus Magnesium Albumin 11/26/20 11/27/20 11/27/20 21:04 00:59 02:30 WBC RBC Hgb Hct MCV MCH MCHC RDW Plt Count MPV Immature Gran % (Auto) Neut % (Auto) Lymph % (Auto) [place] % (Auto) Eos % (Auto) Baso % (Auto) Lymph # (Auto) [place] # (Auto) Eos # (Auto) Baso # (Auto) Abs Immat Gran (auto) Absolute Neuts (auto) Absolute Nucleated RBC Nucleated RBC % (auto) Neutrophils % (Manual) Band Neutrophils % Lymphocytes % (Manual) Monocytes % (Manual) Eosinophils % (Manual) Basophils % (Manual) Metamyelocytes % Abs Neuts (Manual) Lymphocytes # (Manual) Monocytes # (Manual) Eosinophils # (Manual) Basophils # (Manual) Metamyelocytes # Platelet Estimate Plt Morphology Comment RBC Morphology Ovalocytes [place] Cells VBG pH VBG pCO2 VBG pO2 VBG HCO3 VBG O2 Saturation VBG Base Excess Sodium Potassium Chloride Carbon Dioxide Anion Gap BUN Creatinine Estim Creat Clear Calc Estimated GFR POC Glucose 208 H 88 102 Random Glucose Calcium Phosphorus Magnesium Albumin 11/27/20 11/27/20 11/27/20 03:45 04:45 05:45 WBC 10.1 RBC 4.11 L Hgb 10.5 L Hct 34.2 L MCV 83.2 MCH 25.5 L MCHC 30.7 L RDW 16.4 H Plt Count 160 MPV 10.5 Immature Gran % (Auto) Cancelled Neut % (Auto) Cancelled Lymph % (Auto) Cancelled [place] % (Auto) Cancelled Eos % (Auto) Cancelled Baso % (Auto) Cancelled Lymph # (Auto) Cancelled [place] # (Auto) Cancelled Eos # (Auto) Cancelled Baso # (Auto) Cancelled Abs Immat Gran (auto) Cancelled Absolute Neuts (auto) Cancelled Absolute Nucleated RBC 0.000 Nucleated RBC % (auto) 0.0 Neutrophils % (Manual) 77 H Band Neutrophils % 3 Lymphocytes % (Manual) 7 L Monocytes % (Manual) 4 Eosinophils % (Manual) 6 H Basophils % (Manual) 1 Metamyelocytes % 2 Abs Neuts (Manual) 8.1 H Lymphocytes # (Manual) 0.7 Monocytes # (Manual) 0.4 Eosinophils # (Manual) 0.6 Basophils # (Manual) 0.1 Metamyelocytes # 0.2 Platelet Estimate NORMAL Plt Morphology Comment NORMAL RBC Morphology NOTED Ovalocytes 1+ Paige Cells 1+ VBG pH VBG pCO2 VBG pO2 VBG HCO3 VBG O2 Saturation VBG Base Excess Sodium Potassium Chloride Carbon Dioxide Anion Gap BUN Creatinine Estim Creat Clear Calc Estimated GFR POC Glucose 163 H 201 H Random Glucose Calcium Phosphorus Magnesium Albumin 11/27/20 11/27/20 11/27/20 05:45 05:53 06:53 WBC RBC Hgb Hct MCV MCH MCHC RDW Plt Count MPV Immature Gran % (Auto) Neut % (Auto) Lymph % (Auto) [place] % (Auto) Eos % (Auto) Baso % (Auto) Lymph # (Auto) [place] # (Auto) Eos # (Auto) Baso # (Auto) Abs Immat Gran (auto) Absolute Neuts (auto) Absolute Nucleated RBC Nucleated RBC % (auto) Neutrophils % (Manual) Band Neutrophils % Lymphocytes % (Manual) Monocytes % (Manual) Eosinophils % (Manual) Basophils % (Manual) Metamyelocytes % Abs Neuts (Manual) Lymphocytes # (Manual) Monocytes # (Manual) Eosinophils # (Manual) Basophils # (Manual) Metamyelocytes # Platelet Estimate Plt Morphology Comment RBC Morphology Ovalocytes Paige Cells VBG pH 7.37 VBG pCO2 37 VBG pO2 60 VBG HCO3 22 VBG O2 Saturation 87.0 VBG Base Excess -2.5 Sodium 136 Potassium 3.8 Chloride 98 Carbon Dioxide 26 Anion Gap 16 BUN 38 H Creatinine 0.95 Estim Creat Clear Calc 86.5 Estimated GFR 59 POC Glucose 237 H Random Glucose 284 H D Calcium 8.5 Phosphorus 4.3 Magnesium 1.7 Albumin 3.0 L 11/27/20 11/27/20 11/27/20 08:09 08:49 10:26 WBC RBC Hgb Hct MCV MCH MCHC RDW Plt Count MPV Immature Gran % (Auto) Neut % (Auto) Lymph % (Auto) [place] % (Auto) Eos % (Auto) Baso % (Auto) Lymph # (Auto) [place] # (Auto) Eos # (Auto) Baso # (Auto) Abs Immat Gran (auto) Absolute Neuts (auto) Absolute Nucleated RBC Nucleated RBC % (auto) Neutrophils % (Manual) Band Neutrophils % Lymphocytes % (Manual) Monocytes % (Manual) Eosinophils % (Manual) Basophils % (Manual) Metamyelocytes % Abs Neuts (Manual) Lymphocytes # (Manual) Monocytes # (Manual) Eosinophils # (Manual) Basophils # (Manual) Metamyelocytes # Platelet Estimate Plt Morphology Comment RBC Morphology Ovalocytes [place] Cells VBG pH VBG pCO2 VBG pO2 VBG HCO3 VBG O2 Saturation VBG Base Excess Sodium Potassium Chloride Carbon Dioxide Anion Gap BUN Creatinine Estim Creat Clear Calc Estimated GFR POC Glucose 232 H 242 H 204 H Random Glucose Calcium Phosphorus Magnesium Albumin 11/27/20 11/27/20 11/27/20 11:00 12:04 13:56 WBC RBC Hgb Hct MCV MCH MCHC RDW Plt Count MPV Immature Gran % (Auto) Neut % (Auto) Lymph % (Auto) [place] % (Auto) Eos % (Auto) Baso % (Auto) Lymph # (Auto) [place] # (Auto) Eos # (Auto) Baso # (Auto) Abs Immat Gran (auto) Absolute Neuts (auto) Absolute Nucleated RBC Nucleated RBC % (auto) Neutrophils % (Manual) Band Neutrophils % Lymphocytes % (Manual) Monocytes % (Manual) Eosinophils % (Manual) Basophils % (Manual) Metamyelocytes % Abs Neuts (Manual) Lymphocytes # (Manual) Monocytes # (Manual) Eosinophils # (Manual) Basophils # (Manual) Metamyelocytes # Platelet Estimate Plt Morphology Comment RBC Morphology Ovalocytes [place]ige Cells VBG pH VBG pCO2 VBG pO2 VBG HCO3 VBG O2 Saturation VBG Base Excess Sodium Potassium Chloride Carbon Dioxide Anion Gap BUN Creatinine Estim Creat Clear Calc Estimated GFR POC Glucose 159 H 173 H 187 H Random Glucose Calcium Phosphorus Magnesium Albumin Microbiology Microbiology Results: Microbiology 11/22/20 08:15 Sputum - Suctioned Gram Stain - Final 11/22/20 08:15 Sputum - Suctioned Sputum Culture - Final Stenotrophomonas maltophilia 11/09/20 19:57 Blood - Venous Blood Culture - Final Coag negative Staphylococcus 11/09/20 20:54 Blood - Venous Blood Culture - Final No growth after 5 days. Progress Note: A&P Assessment and plan (1) Acute respiratory failure with hypoxia: Status: Acute Assessment and Plan: Assessment: 65-year-old lady with multiple medical issues admitted with hypoxia secondary to COVID-19 ARDS now requiring ventilatory support. Plan: Neuro: No acute issues. Cardiac: Underlying diastolic dysfunction, right-sided heart failure, and paroxysmal fibrillation. Continue with rate and rhythm control with propafenone and metoprolol. Continue anticoagulation with apixaban. Continue with diuresis. Pulmonary: Acute hypoxic respiratory failure secondary to COVID-19 ARDS. Continue to titrate off ventilatory support as tolerated. FiO2 requirements are slowly improving. Renal: No acute issues. Endo: No acute issues. GI: No acute issues. ID: Sputum culture with stenotrophomonas maltophilia, Levaquin susceptible, likely a colonization. Will monitor off antibiotics. COVID-19, status post dexamethasone. Heme/Onc: No acute issues. Psych: No acute issues. Miscellaneous: No acute issues. Prophylaxis: Apixaban, famotidine Diet: Tube feeds Critical care time spent: 60 minutes (2) Acute respiratory distress syndrome (ARDS) due to COVID-19 virus: Status: Acute (3) Chronic heart failure with preserved ejection fraction (HFpEF): Status: Acute (4) Type 2 diabetes mellitus with chronic kidney disease: Status: Acute (5) Right heart failure (secondary to left heart failure): Status: Acute (6) Paroxysmal atrial fibrillation: Status: Acute (7) Morbid obesity due to excess calories: Status: Acute Time Spent With Patient Total time spent with greater than 50% in coordination of care (as documented) at patient's floor/unit and/or counseling patient:: 0 Critical Care Time Critical Care Time (minutes): 60
[2020-11-27] MEDS: Potassium Chloride/H20 40 MEQ/100 ML PIGGYBACK 100 MEQ IV (16:27)
[2020-11-27 16:30] LABS: Glucose, Whole Blood 191 mg/dL (60-115)
--- NOTE | 2020-11-27 17:19 | PC.NURSE ---
S/E Afebrile Sedated on Propofol gtt Pupils 3mm, PERRLA, positive cough, weak gag SR Hr 80-90's Dressing L IJ TLC changed LS rhonchi throughout ETT 8 24cm @ lip Vent settings PC 30, rate 18, peep 5, 50% Fio2 Thick loody inline secretions
--- NOTE | 2020-11-27 17:22 | PC.NURSE ---
S/E Afebrile Sedated on Propofol gtt Failed sedation vacation - asynchronous, tachycardic + tracking, not following commands Pupils 3mm, PERRLA, positive cough, weak gag SR Hr 80-90's Dressing L IJ TLC changed LS rhonchi throughout ETT #8 24cm @ lip Vent settings PC 30, rate 18, peep 5, 50% Fio2 Thick bloody inline secretions Eliquis discontinued, heparin SQ started for 2200 tonight Tolerating tube feeds, 30cc residuals 120cc water flushes q4h No BM Insulin gtt titrated per protocol Urine output approx 1500cc throughout shift Multiple skin integrity concerns - see separate documentation Bathed, barrier cream, air loss bed in place Family updated by this RN and MD Patient approved for visitors per nursing public relations account supervisor
[2020-11-27 18:35] LABS: Glucose, Whole Blood 160 mg/dL (60-115)
[2020-11-27] MEDS: Heparin Sodium,Porcine 5,000 UNIT/ML VIAL 5000 UNIT SUBCUT (19:32)
[2020-11-27 22:07] LABS: Glucose, Whole Blood 115 mg/dL (60-115)
[2020-11-27 22:07] LABS: Glucose, Whole Blood 159 mg/dL (60-115)
[2020-11-28] VITALS (30 sets, daily range): BP systolic 95–164; BP diastolic 49–73; PULSE 29–119; RESP 20–33; TEMP 36.2–39; O2SAT 87–97
[2020-11-28] MEDS: propofoL 1,000 MG/100 ML VIAL 26.94 MG IVCONT ×8 (00:21→23:33)
[2020-11-28 00:22] LABS: Glucose, Whole Blood 118 mg/dL (60-115)
[2020-11-28] MEDS: Albumin Human 25 % 100 ML IV (02:33)
[2020-11-28 03:46] LABS: Glucose, Whole Blood 137 mg/dL (60-115)
[2020-11-28] MEDS: Insulin Regular/NS 100 UNIT/100 ML PLAST..BAG IVCONT (04:18)
[2020-11-28] MEDS: Heparin Sodium,Porcine 5,000 UNIT/ML VIAL 5000 UNIT SUBCUT ×3 (04:19→20:34)
[2020-11-28 06:32] LABS: Glucose, Whole Blood 222 mg/dL (60-115)
[2020-11-28 06:32] LABS: VBG Base Excess -3.7 mmol/L; VBG HCO3 20 mmol/L (22-26); VBG pCO2 34 mmHg; VBG pH 7.38 (7.32-7.43); VBG pO2 68 mmHg
[2020-11-28 06:33] LABS: Venous Blood Gas Refer to POC result
[2020-11-28 06:43] LABS: Hematocrit 32.7 % (37-47); Hemoglobin 10.1 g/dl (12.0-16.0); Mean Corpuscular HGB Conc 30.9 g/dl (31.0-35.0); Mean Corpuscular Hemoglobin 25.3 pg (27.0-33.0); Mean Platelet Volume 10.2 fL (9.4-12.3); Platelet Count 173 X10*3/uL (160-400); Red Blood Count 3.99 X10*6/uL (4.20-5.50); Red Cell Distribution Width 16.3 % (11.0-16.0); White Blood Count 9.4 X10*3/uL (4.8-10.8)
[2020-11-28 07:07] LABS: Alanine Aminotransferase 18 U/L (0-31); Albumin Level 3.9 g/dL (3.5-5.0); Alkaline Phosphatase 73 U/L (39-117); Anion Gap 16 (12-20); Aspartate Amino Transferase 23 U/L (5-31); Bilirubin Total 0.8 mg/dL (0.0-1.0); Blood Urea Nitrogen 33 mg/dL (9-16); Calcium 9.1 mg/dL (8.4-10.2); Carbon Dioxide 27 mmol/L (22-29); Chloride 98 mmol/L (96-108); Creatinine Clr Calc Pharmacy 93.4; Estimated Glomerular Filt Rate > 60; Glucose Random 264 mg/dL (60-115); Magnesium 1.9 mg/dL (1.6-2.6); Phosphorus 4.4 mg/dL (2.7-4.5); Potassium 3.6 mmol/L (3.3-5.1); Sodium 137 mmol/L (135-145); Total Protein 6.8 g/dL (6.5-8.0)
[2020-11-28 07:21] LABS: Glucose, Whole Blood 247 mg/dL (60-115)
[2020-11-28] MEDS: Cholecalciferol (Vitamin D3) 25 MCG TABLET 50 MCG PO (07:58)
[2020-11-28] MEDS: Famotidine/PF 20 MG/2 ML VIAL IVPUSH (07:58)
[2020-11-28] MEDS: Metoprolol Tartrate 25 MG TABLET PO ×2 (07:58→20:34)
[2020-11-28] MEDS: Ascorbic Acid 500 MG TABLET PO ×2 (07:58→20:34)
[2020-11-28] MEDS: 0.9 % Sodium Chloride Flush 3 ML SYRINGE IVFLUSH ×3 (07:58→23:33)
[2020-11-28] MEDS: Furosemide 40 MG/4 ML VIAL IVPUSH ×2 (07:58→17:53)
[2020-11-28] MEDS: Nystatin Powder 15 GM BOTTLE 1 APPL TOPICAL ×2 (07:59→20:34)
[2020-11-28] MEDS: Chlorhexidine Gluc Oral Rinse 15 ML MOUTHWASH BUCCAL ×3 (07:59→20:34)
[2020-11-28 08:14] LABS: Band Neutrophils Percent 8 % (3-5); Eosinophils Absolute Manual 1.4 X10*3/UL (0.0-0.8); Eosinophils Percent Manual 15 % (0-4); Lymphocytes Absolute Manual 0.4 X10*3/uL (0.6-4.8); Lymphocytes Percent Manual 4 % (20-40); Metamyelocytes Absolute 0.4 X10*3/uL; Metamyelocytes Percent 4 %; Monocytes Absolute Manual 0.2 X10*3/uL (0.0-1.2); Monocytes Percent Manual 2 % (2-11); Neutrophils Absolute Manual 7.1 X10*3/uL (2.2-7.9); Neutrophils Percent Manual 67 % (45-73); Nucleated Red Blood Cells 1 /100WBC (0-0); RBC Morphology NOTED
[2020-11-28 08:15] LABS: Microcytosis 1+; Ovalocytes 1+; Schistocytes 1+
[2020-11-28 08:16] LABS: Platelet Estimate NORMAL (NORMAL); Platelet Morphology Comment NORMAL
[2020-11-28 08:38] LABS: Glucose, Whole Blood 227 mg/dL (60-115)
[2020-11-28 09:51] LABS: Glucose, Whole Blood 218 mg/dL (60-115)
[2020-11-28 10:38] LABS: Glucose, Whole Blood 207 mg/dL (60-115)
--- NOTE | 2020-11-28 10:45 | MHC.CLN ---
F/U PT RECEIVING GLUCERNA AT MAX GOAL 50CC/HR WITH 30CC PROSOURCE BID AND 120CC FREE WATER FLUSHES Q 4HRS PROVIDES 1320KCALS (2030 WITH SEDATION; 34KCALS/KG BASED ON IBW), 80G PROTEIN (1.4G/KG), 1744CC TOTAL WATER FROM FORMULA AND FLUSH MONITOR TOLERANCE, RESIDUALS AND LYTES
[2020-11-28 11:02] LABS: Glucose, Whole Blood 190 mg/dL (60-115)
[2020-11-28 11:54] LABS: Glucose, Whole Blood 190 mg/dL (60-115)
[2020-11-28 13:54] LABS: Glucose, Whole Blood 161 mg/dL (60-115)
--- NOTE | 2020-11-28 15:05 | PM.CCPN ---
Subjective Subjective Date of Service: 11/28/20 Interval History: 65-year-old lady with underlying multiple medical problems including coronary artery disease, diastolic congestive heart failure, right heart failure secondary to left heart failure, AFib on anticoagulation, COPD, hypertension, morbid obesity, diabetes admitted on 11/09/2020 with shortness of breath secondary to COVID-19. Patient has initially been admitted to general medical mead and treated with dexamethasone, however her FiO2 requirement continue to deteriorate requiring transfer to intensive care unit, intubation, and ventilatory support on 11/18/2020. Her sputum culture has been positive for stenotrophomonas which is likely a colonization. She has had an episode of AFib with RVR requiring cardioversion, now controlled on propafenone and metoprolol. No events overnight. Physical Exam Vital Signs: Vital Signs: Last Vital Signs Temp 98.4 F 11/28/20 14:00 Pulse 80 11/28/20 14:00 Resp 23 H 11/28/20 14:00 BP 130/58 L 11/28/20 14:00 Pulse Ox 90 L 11/28/20 14:00 Body Mass Index 53.2 Const: General: no acute distress Nutritional Appearance: obese Eyes: Sclerae: sclerae normal EOM: EOMs intact bilaterally Neck: Neck: Yes no lymphadenopathy, Yes trachea midline and Yes supple Resp: Auscultation: crackles (Diffuse bilateral) Cardio: Rate: regular rate Rhythm: regular rhythm Heart sounds: no gallops, no murmurs and no rubs GI: Palpation (GI): Soft to palpation and Other GI palpation findings present ( Nontender) Auscultation: normal bowel sounds Extrem: General: No clubbing, No cyanosis and Yes pedal edema (Trace bilateral) Objective Data Labs CBC & Chem 7: 11/28/20 06:17 11/28/20 06:17 Labs: Laboratory Results - last 24 hr 11/27/20 11/27/20 11/27/20 16:26 18:30 19:47 WBC RBC Hgb Hct MCV MCH MCHC RDW Plt Count MPV Immature Gran % (Auto) Neut % (Auto) Lymph % (Auto) [place] % (Auto) Eos % (Auto) Baso % (Auto) Lymph # (Auto) [place] # (Auto) Eos # (Auto) Baso # (Auto) Abs Immat Gran (auto) Absolute Neuts (auto) Absolute Nucleated RBC Nucleated RBC % (auto) Neutrophils % (Manual) Band Neutrophils % Lymphocytes % (Manual) Monocytes % (Manual) Eosinophils % (Manual) Metamyelocytes % Abs Neuts (Manual) Lymphocytes # (Manual) Monocytes # (Manual) Eosinophils # (Manual) Metamyelocytes # Nucleated RBCs Platelet Estimate Plt Morphology Comment RBC Morphology Microcytosis Ovalocytes Schistocytes VBG pH VBG pCO2 VBG pO2 VBG HCO3 VBG O2 Saturation VBG Base Excess Sodium Potassium Chloride Carbon Dioxide Anion Gap BUN Creatinine Estim Creat Clear Calc Estimated GFR POC Glucose 191 H 160 H 159 H Random Glucose Calcium Phosphorus Magnesium Total Bilirubin AST ALT Alkaline Phosphatase Total Protein Albumin 11/27/20 11/28/20 11/28/20 21:54 00:18 02:40 WBC RBC Hgb Hct MCV MCH MCHC RDW Plt Count MPV Immature Gran % (Auto) Neut % (Auto) Lymph % (Auto) [place] % (Auto) Eos % (Auto) Baso % (Auto) Lymph # (Auto) [place] # (Auto) Eos # (Auto) Baso # (Auto) Abs Immat Gran (auto) Absolute Neuts (auto) Absolute Nucleated RBC Nucleated RBC % (auto) Neutrophils % (Manual) Band Neutrophils % Lymphocytes % (Manual) Monocytes % (Manual) Eosinophils % (Manual) Metamyelocytes % Abs Neuts (Manual) Lymphocytes # (Manual) Monocytes # (Manual) Eosinophils # (Manual) Metamyelocytes # Nucleated RBCs Platelet Estimate Plt Morphology Comment RBC Morphology Microcytosis Ovalocytes Schistocytes VBG pH VBG pCO2 VBG pO2 VBG HCO3 VBG O2 Saturation VBG Base Excess Sodium Potassium Chloride Carbon Dioxide Anion Gap BUN Creatinine Estim Creat Clear Calc Estimated GFR POC Glucose 115 118 H 137 H Random Glucose Calcium Phosphorus Magnesium Total Bilirubin AST ALT Alkaline Phosphatase Total Protein Albumin 11/28/20 11/28/20 11/28/20 06:17 06:17 06:24 WBC 9.4 RBC 3.99 L Hgb 10.1 L Hct 32.7 L MCV 82.0 MCH 25.3 L MCHC 30.9 L RDW 16.3 H Plt Count 173 MPV 10.2 Immature Gran % (Auto) Cancelled Neut % (Auto) Cancelled Lymph % (Auto) Cancelled [place] % (Auto) Cancelled Eos % (Auto) Cancelled Baso % (Auto) Cancelled Lymph # (Auto) Cancelled [place] # (Auto) Cancelled Eos # (Auto) Cancelled Baso # (Auto) Cancelled Abs Immat Gran (auto) Cancelled Absolute Neuts (auto) Cancelled Absolute Nucleated RBC 0.000 Nucleated RBC % (auto) 0.0 Neutrophils % (Manual) 67 Band Neutrophils % 8 H Lymphocytes % (Manual) 4 L Monocytes % (Manual) 2 Eosinophils % (Manual) 15 H Metamyelocytes % 4 Abs Neuts (Manual) 7.1 Lymphocytes # (Manual) 0.4 L Monocytes # (Manual) 0.2 Eosinophils # (Manual) 1.4 H Metamyelocytes # 0.4 Nucleated RBCs 1 H Platelet Estimate NORMAL Plt Morphology Comment NORMAL RBC Morphology NOTED Microcytosis 1+ Ovalocytes 1+ Schistocytes 1+ VBG pH VBG pCO2 VBG pO2 VBG HCO3 VBG O2 Saturation VBG Base Excess Sodium 137 Potassium 3.6 Chloride 98 Carbon Dioxide 27 Anion Gap 16 BUN 33 H Creatinine 0.88 Estim Creat Clear Calc 93.4 Estimated GFR > 60 POC Glucose 222 H Random Glucose 264 H Calcium 9.1 D Phosphorus 4.4 Magnesium 1.9 Total Bilirubin 0.8 AST 23 ALT 18 Alkaline Phosphatase 73 Total Protein 6.8 Albumin 3.9 D 11/28/20 11/28/20 11/28/20 06:26 07:15 08:29 WBC RBC Hgb Hct MCV MCH MCHC RDW Plt Count MPV Immature Gran % (Auto) Neut % (Auto) Lymph % (Auto) [place] % (Auto) Eos % (Auto) Baso % (Auto) Lymph # (Auto) [place] # (Auto) Eos # (Auto) Baso # (Auto) Abs Immat Gran (auto) Absolute Neuts (auto) Absolute Nucleated RBC Nucleated RBC % (auto) Neutrophils % (Manual) Band Neutrophils % Lymphocytes % (Manual) Monocytes % (Manual) Eosinophils % (Manual) Metamyelocytes % Abs Neuts (Manual) Lymphocytes # (Manual) Monocytes # (Manual) Eosinophils # (Manual) Metamyelocytes # Nucleated RBCs Platelet Estimate Plt Morphology Comment RBC Morphology Microcytosis Ovalocytes Schistocytes VBG pH 7.38 VBG pCO2 34 VBG pO2 68 VBG HCO3 20 L VBG O2 Saturation 90.0 VBG Base Excess -3.7 Sodium Potassium Chloride Carbon Dioxide Anion Gap BUN Creatinine Estim Creat Clear Calc Estimated GFR POC Glucose 247 H 227 H Random Glucose Calcium Phosphorus Magnesium Total Bilirubin AST ALT Alkaline Phosphatase Total Protein Albumin 11/28/20 11/28/20 11/28/20 09:46 10:35 10:57 WBC RBC Hgb Hct MCV MCH MCHC RDW Plt Count MPV Immature Gran % (Auto) Neut % (Auto) Lymph % (Auto) [place] % (Auto) Eos % (Auto) Baso % (Auto) Lymph # (Auto) [place] # (Auto) Eos # (Auto) Baso # (Auto) Abs Immat Gran (auto) Absolute Neuts (auto) Absolute Nucleated RBC Nucleated RBC % (auto) Neutrophils % (Manual) Band Neutrophils % Lymphocytes % (Manual) Monocytes % (Manual) Eosinophils % (Manual) Metamyelocytes % Abs Neuts (Manual) Lymphocytes # (Manual) Monocytes # (Manual) Eosinophils # (Manual) Metamyelocytes # Nucleated RBCs Platelet Estimate Plt Morphology Comment RBC Morphology Microcytosis Ovalocytes Schistocytes VBG pH VBG pCO2 VBG pO2 VBG HCO3 VBG O2 Saturation VBG Base Excess Sodium Potassium Chloride Carbon Dioxide Anion Gap BUN Creatinine Estim Creat Clear Calc Estimated GFR POC Glucose 218 H 207 H 190 H Random Glucose Calcium Phosphorus Magnesium Total Bilirubin AST ALT Alkaline Phosphatase Total Protein Albumin 11/28/20 11/28/20 11:51 13:11 WBC RBC Hgb Hct MCV MCH MCHC RDW Plt Count MPV Immature Gran % (Auto) Neut % (Auto) Lymph % (Auto) [place] % (Auto) Eos % (Auto) Baso % (Auto) Lymph # (Auto) [place] # (Auto) Eos # (Auto) Baso # (Auto) Abs Immat Gran (auto) Absolute Neuts (auto) Absolute Nucleated RBC Nucleated RBC % (auto) Neutrophils % (Manual) Band Neutrophils % Lymphocytes % (Manual) Monocytes % (Manual) Eosinophils % (Manual) Metamyelocytes % Abs Neuts (Manual) Lymphocytes # (Manual) Monocytes # (Manual) Eosinophils # (Manual) Metamyelocytes # Nucleated RBCs Platelet Estimate Plt Morphology Comment RBC Morphology Microcytosis Ovalocytes Schistocytes VBG pH VBG pCO2 VBG pO2 VBG HCO3 VBG O2 Saturation VBG Base Excess Sodium Potassium Chloride Carbon Dioxide Anion Gap BUN Creatinine Estim Creat Clear Calc Estimated GFR POC Glucose 190 H 161 H Random Glucose Calcium Phosphorus Magnesium Total Bilirubin AST ALT Alkaline Phosphatase Total Protein Albumin Microbiology Microbiology Results: Microbiology 11/22/20 08:15 Sputum - Suctioned Gram Stain - Final 11/22/20 08:15 Sputum - Suctioned Sputum Culture - Final Stenotrophomonas maltophilia 11/09/20 19:57 Blood - Venous Blood Culture - Final Coag negative Staphylococcus 11/09/20 20:54 Blood - Venous Blood Culture - Final No growth after 5 days. Progress Note: A&P Assessment and plan (1) Acute respiratory failure with hypoxia: Status: Acute Assessment and Plan: Assessment: 65-year-old lady with multiple medical issues admitted with hypoxia secondary to COVID-19 ARDS now requiring ventilatory support. Plan: Neuro: No acute issues. Cardiac: Underlying diastolic dysfunction, right-sided heart failure, and paroxysmal fibrillation. Continue with rate and rhythm control with propafenone and metoprolol. Apixaban held secondary to development of bloody tracheal secretions. Continue with diuresis. Pulmonary: Acute hypoxic respiratory failure secondary to COVID-19 ARDS. Continue to titrate off ventilatory support as tolerated. FiO2 requirements are slowly improving. Renal: No acute issues. Endo: No acute issues. GI: No acute issues. ID: Sputum culture with stenotrophomonas maltophilia, Levaquin susceptible, likely a colonization. Will monitor off antibiotics. COVID-19, status post dexamethasone. Heme/Onc: No acute issues. Psych: No acute issues. Miscellaneous: No acute issues. Prophylaxis: Heparin, famotidine Diet: Tube feeds Critical care time spent: 60 minutes (2) Acute respiratory distress syndrome (ARDS) due to COVID-19 virus: Status: Acute (3) Type 2 diabetes mellitus with chronic kidney disease: Status: Acute (4) Chronic heart failure with preserved ejection fraction (HFpEF): Status: Acute (5) Right heart failure (secondary to left heart failure): Status: Acute (6) Paroxysmal atrial fibrillation: Status: Acute (7) CAD (coronary artery disease): Status: Acute (8) Morbid obesity due to excess calories: Status: Acute Time Spent With Patient Total time spent with greater than 50% in coordination of care (as documented) at patient's floor/unit and/or counseling patient:: 0 Critical Care Time Critical Care Time (minutes): 60
[2020-11-28 15:11] LABS: Glucose, Whole Blood 170 mg/dL (60-115)
[2020-11-28 16:50] LABS: Glucose, Whole Blood 152 mg/dL (60-115)
[2020-11-28] MEDS: Insulin Regular/NS 100 UNIT/100 ML PLAST..BAG 6 UNIT IVCONT (17:53)
[2020-11-28 21:04] LABS: Glucose, Whole Blood 171 mg/dL (60-115)
[2020-11-28 21:05] LABS: Glucose, Whole Blood 149 mg/dL (60-115)
[2020-11-28 23:33] LABS: Glucose, Whole Blood 138 mg/dL (60-115)
[2020-11-29] VITALS (37 sets, daily range): BP systolic 96–141; BP diastolic 46–86; PULSE 71–99; RESP 18–35; TEMP 36.1–38.8; O2SAT 50–100
[2020-11-29 00:14] LABS: Glucose, Whole Blood 142 mg/dL (60-115)
[2020-11-29 02:21] LABS: Glucose, Whole Blood 172 mg/dL (60-115)
[2020-11-29] MEDS: propofoL 1,000 MG/100 ML VIAL 26.94 MG IVCONT ×6 (02:26→23:35)
[2020-11-29 04:14] LABS: Glucose, Whole Blood 147 mg/dL (60-115)
[2020-11-29] MEDS: Heparin Sodium,Porcine 5,000 UNIT/ML VIAL 5000 UNIT SUBCUT ×3 (05:11→20:41)
[2020-11-29 05:54] LABS: VBG Base Excess 3.4 mmol/L; VBG HCO3 28 mmol/L (22-26); VBG pCO2 44 mmHg; VBG pH 7.41 (7.32-7.43); VBG pO2 77 mmHg
[2020-11-29 05:56] LABS: Hematocrit 33.3 % (37-47); Hemoglobin 10.7 g/dl (12.0-16.0); Mean Corpuscular HGB Conc 32.1 g/dl (31.0-35.0); Mean Corpuscular Hemoglobin 26.6 pg (27.0-33.0); Mean Corpuscular Volume 82.8 fL (80-98); Mean Platelet Volume 10.8 fL (9.4-12.3); NRBC Pct Auto 0.2 /100WBC (0.0-0.2); Platelet Count 181 X10*3/uL (160-400); Red Blood Count 4.02 X10*6/uL (4.20-5.50); Red Cell Distribution Width 16.1 % (11.0-16.0)
[2020-11-29 06:02] LABS: Venous Blood Gas Refer to POC result
[2020-11-29 06:14] LABS: Glucose, Whole Blood 132 mg/dL (60-115)
[2020-11-29 06:47] LABS: Albumin Level 3.5 g/dL (3.5-5.0); Anion Gap 19 (12-20); Blood Urea Nitrogen 32 mg/dL (9-16); Calcium 9.1 mg/dL (8.4-10.2); Carbon Dioxide 24 mmol/L (22-29); Chloride 97 mmol/L (96-108); Creatinine Clr Calc Pharmacy 92.4; Estimated Glomerular Filt Rate > 60; Glucose Random 164 mg/dL (60-115); Magnesium 1.9 mg/dL (1.6-2.6); Phosphorus 5.5 mg/dL (2.7-4.5); Potassium 3.9 mmol/L (3.3-5.1); Sodium 136 mmol/L (135-145)
[2020-11-29 07:34] LABS: Glucose, Whole Blood 151 mg/dL (60-115)
[2020-11-29 08:25] LABS: Glucose, Whole Blood 168 mg/dL (60-115)
[2020-11-29 09:01] LABS: Band Neutrophils Percent 10 % (3-5); Eosinophils Absolute Manual 0.9 X10*3/UL (0.0-0.8); Eosinophils Percent Manual 9 % (0-4); Lymphocytes Absolute Manual 0.9 X10*3/uL (0.6-4.8); Lymphocytes Percent Manual 9 % (20-40); Metamyelocytes Absolute 0.5 X10*3/uL; Metamyelocytes Percent 5 %; Monocytes Absolute Manual 0.1 X10*3/uL (0.0-1.2); Monocytes Percent Manual 1 % (2-11); Myelocytes Absolute 0.1 X10*/uL; Myelocytes Percent 1 %; Neutrophils Absolute Manual 7.5 X10*3/uL (2.2-7.9); Neutrophils Percent Manual 65 % (45-73)
[2020-11-29 09:03] LABS: RBC Morphology NOTED
[2020-11-29 09:04] LABS: Ovalocytes 1+
[2020-11-29 09:05] LABS: Acanthocytes 1+; Platelet Estimate NORMAL (NORMAL); Platelet Morphology Comment NORMAL
[2020-11-29] MEDS: Chlorhexidine Gluc Oral Rinse 15 ML MOUTHWASH BUCCAL ×3 (09:09→20:40)
[2020-11-29] MEDS: Metoprolol Tartrate 25 MG TABLET PO ×2 (09:10→20:40)
[2020-11-29] MEDS: Famotidine/PF 20 MG/2 ML VIAL IVPUSH (09:11)
[2020-11-29] MEDS: Ascorbic Acid 500 MG TABLET PO ×2 (09:11→20:40)
[2020-11-29] MEDS: 0.9 % Sodium Chloride Flush 3 ML SYRINGE IVFLUSH ×3 (09:11→23:35)
[2020-11-29] MEDS: Furosemide 40 MG/4 ML VIAL IVPUSH ×2 (09:11→18:08)
[2020-11-29] MEDS: Cholecalciferol (Vitamin D3) 25 MCG TABLET 50 MCG PO (09:11)
[2020-11-29] MEDS: Nystatin Powder 15 GM BOTTLE 1 APPL TOPICAL ×2 (09:12→20:44)
[2020-11-29 09:46] LABS: Glucose, Whole Blood 179 mg/dL (60-115)
--- NOTE | 2020-11-29 10:00 | P.PNCC_ITS ---
Subjective Subjective Date of Service: 11/29/20 Interval History: 65-year-old lady with underlying multiple medical problems including coronary artery disease, diastolic congestive heart failure, right heart failure secondary to left heart failure, AFib on anticoagulation, COPD, hypertension, morbid obesity, diabetes admitted on 11/09/2020 with shortness of breath secondary to COVID-19. Patient has initially been admitted to general medical [facility] and treated with dexamethasone, however her FiO2 requirement continue to deteriorate requiring transfer to intensive care unit, intubation, and ventilatory support on 11/18/2020. Her sputum culture has been positive for stenotrophomonas which is likely a colonization. She has had an episode of AFib with RVR requiring cardioversion, now controlled on propafenone and metoprolol. No events overnight. Physical Exam Vital Signs: Vital Signs: Last Vital Signs Temp 97.7 F 11/29/20 07:00 Pulse 83 11/29/20 09:13 Resp 18 11/29/20 09:13 BP 123/48 L 11/29/20 09:13 Pulse Ox 94 11/29/20 09:13 Body Mass Index 53.2 Const: General: no acute distress and other (Sedated on the vent) Nutritional Appearance: obese Eyes: Sclerae: sclerae normal EOM: EOMs intact bilaterally Neck: Neck: Yes no lymphadenopathy, Yes trachea midline and Yes supple Resp: Effort & Inspection: normal respiratory effort and no respiratory distress Auscultation: clear to auscultation bilaterally Cardio: Rate: regular rate Rhythm: regular rhythm Heart sounds: no gallops, no murmurs and no rubs GI: Palpation (GI): Soft to palpation and Other GI palpation findings present ( Nontender) Auscultation: normal bowel sounds Extrem: General: No clubbing, No cyanosis and Yes pedal edema (Trace bilateral) Objective Data Labs CBC & Chem 7: 11/29/20 05:37 11/29/20 05:37 Labs: Laboratory Results - last 24 hr 11/28/20 11/28/20 11/28/20 10:35 10:57 11:51 WBC RBC Hgb Hct MCV MCH MCHC RDW Plt Count MPV Immature Gran % (Auto) Neut % (Auto) Lymph % (Auto) [place] % (Auto) Eos % (Auto) Baso % (Auto) Lymph # (Auto) [place] # (Auto) Eos # (Auto) Baso # (Auto) Abs Immat Gran (auto) Absolute Neuts (auto) Absolute Nucleated RBC Nucleated RBC % (auto) Neutrophils % (Manual) Band Neutrophils % Lymphocytes % (Manual) Monocytes % (Manual) Eosinophils % (Manual) Metamyelocytes % Myelocytes % Abs Neuts (Manual) Lymphocytes # (Manual) Monocytes # (Manual) Eosinophils # (Manual) Metamyelocytes # Myelocytes # Platelet Estimate Plt Morphology Comment RBC Morphology Ovalocytes Acanthocytes (Spur) VBG pH VBG pCO2 VBG pO2 VBG HCO3 VBG O2 Saturation VBG Base Excess Sodium Potassium Chloride Carbon Dioxide Anion Gap BUN Creatinine Estim Creat Clear Calc Estimated GFR POC Glucose 207 H 190 H 190 H Random Glucose Calcium Phosphorus Magnesium Albumin 11/28/20 11/28/20 11/28/20 13:11 15:04 16:46 WBC RBC Hgb Hct MCV MCH MCHC RDW Plt Count MPV Immature Gran % (Auto) Neut % (Auto) Lymph % (Auto) [place] % (Auto) Eos % (Auto) Baso % (Auto) Lymph # (Auto) [place] # (Auto) Eos # (Auto) Baso # (Auto) Abs Immat Gran (auto) Absolute Neuts (auto) Absolute Nucleated RBC Nucleated RBC % (auto) Neutrophils % (Manual) Band Neutrophils % Lymphocytes % (Manual) Monocytes % (Manual) Eosinophils % (Manual) Metamyelocytes % Myelocytes % Abs Neuts (Manual) Lymphocytes # (Manual) Monocytes # (Manual) Eosinophils # (Manual) Metamyelocytes # Myelocytes # Platelet Estimate Plt Morphology Comment RBC Morphology Ovalocytes Acanthocytes (Spur) VBG pH VBG pCO2 VBG pO2 VBG HCO3 VBG O2 Saturation VBG Base Excess Sodium Potassium Chloride Carbon Dioxide Anion Gap BUN Creatinine Estim Creat Clear Calc Estimated GFR POC Glucose 161 H 170 H 152 H Random Glucose Calcium Phosphorus Magnesium Albumin 11/28/20 11/28/20 11/28/20 18:40 20:55 23:28 WBC RBC Hgb Hct MCV MCH MCHC RDW Plt Count MPV Immature Gran % (Auto) Neut % (Auto) Lymph % (Auto) [place] % (Auto) Eos % (Auto) Baso % (Auto) Lymph # (Auto) [place] # (Auto) Eos # (Auto) Baso # (Auto) Abs Immat Gran (auto) Absolute Neuts (auto) Absolute Nucleated RBC Nucleated RBC % (auto) Neutrophils % (Manual) Band Neutrophils % Lymphocytes % (Manual) Monocytes % (Manual) Eosinophils % (Manual) Metamyelocytes % Myelocytes % Abs Neuts (Manual) Lymphocytes # (Manual) Monocytes # (Manual) Eosinophils # (Manual) Metamyelocytes # Myelocytes # Platelet Estimate Plt Morphology Comment RBC Morphology Ovalocytes Acanthocytes (Spur) VBG pH VBG pCO2 VBG pO2 VBG HCO3 VBG O2 Saturation VBG Base Excess Sodium Potassium Chloride Carbon Dioxide Anion Gap BUN Creatinine Estim Creat Clear Calc Estimated GFR POC Glucose 171 H 149 H 138 H Random Glucose Calcium Phosphorus Magnesium Albumin 11/29/20 11/29/20 11/29/20 00:10 02:11 04:05 WBC RBC Hgb Hct MCV MCH MCHC RDW Plt Count MPV Immature Gran % (Auto) Neut % (Auto) Lymph % (Auto) [place] % (Auto) Eos % (Auto) Baso % (Auto) Lymph # (Auto) [place] # (Auto) Eos # (Auto) Baso # (Auto) Abs Immat Gran (auto) Absolute Neuts (auto) Absolute Nucleated RBC Nucleated RBC % (auto) Neutrophils % (Manual) Band Neutrophils % Lymphocytes % (Manual) Monocytes % (Manual) Eosinophils % (Manual) Metamyelocytes % Myelocytes % Abs Neuts (Manual) Lymphocytes # (Manual) Monocytes # (Manual) Eosinophils # (Manual) Metamyelocytes # Myelocytes # Platelet Estimate Plt Morphology Comment RBC Morphology Ovalocytes Acanthocytes (Spur) VBG pH VBG pCO2 VBG pO2 VBG HCO3 VBG O2 Saturation VBG Base Excess Sodium Potassium Chloride Carbon Dioxide Anion Gap BUN Creatinine Estim Creat Clear Calc Estimated GFR POC Glucose 142 H 172 H 147 H Random Glucose Calcium Phosphorus Magnesium Albumin 11/29/20 11/29/20 11/29/20 05:37 05:37 05:49 WBC 10.0 RBC 4.02 L Hgb 10.7 L Hct 33.3 L MCV 82.8 MCH 26.6 L MCHC 32.1 RDW 16.1 H Plt Count 181 MPV 10.8 Immature Gran % (Auto) Cancelled Neut % (Auto) Cancelled Lymph % (Auto) Cancelled [place] % (Auto) Cancelled Eos % (Auto) Cancelled Baso % (Auto) Cancelled Lymph # (Auto) Cancelled [place] # (Auto) Cancelled Eos # (Auto) Cancelled Baso # (Auto) Cancelled Abs Immat Gran (auto) Cancelled Absolute Neuts (auto) Cancelled Absolute Nucleated RBC 0.020 H Nucleated RBC % (auto) 0.2 Neutrophils % (Manual) 65 Band Neutrophils % 10 H Lymphocytes % (Manual) 9 L Monocytes % (Manual) 1 L Eosinophils % (Manual) 9 H Metamyelocytes % 5 Myelocytes % 1 Abs Neuts (Manual) 7.5 Lymphocytes # (Manual) 0.9 Monocytes # (Manual) 0.1 Eosinophils # (Manual) 0.9 H Metamyelocytes # 0.5 Myelocytes # 0.1 Platelet Estimate NORMAL Plt Morphology Comment NORMAL RBC Morphology NOTED Ovalocytes 1+ Acanthocytes (Spur) 1+ VBG pH 7.41 VBG pCO2 44 VBG pO2 77 VBG HCO3 28 H VBG O2 Saturation 94.0 VBG Base Excess 3.4 Sodium 136 Potassium 3.9 Chloride 97 Carbon Dioxide 24 Anion Gap 19 BUN 32 H Creatinine 0.89 Estim Creat Clear Calc 92.4 Estimated GFR > 60 POC Glucose Random Glucose 164 H D Calcium 9.1 Phosphorus 5.5 H Magnesium 1.9 Albumin 3.5 11/29/20 11/29/20 11/29/20 05:54 07:26 08:22 WBC RBC Hgb Hct MCV MCH MCHC RDW Plt Count MPV Immature Gran % (Auto) Neut % (Auto) Lymph % (Auto) [place] % (Auto) Eos % (Auto) Baso % (Auto) Lymph # (Auto) [place] # (Auto) Eos # (Auto) Baso # (Auto) Abs Immat Gran (auto) Absolute Neuts (auto) Absolute Nucleated RBC Nucleated RBC % (auto) Neutrophils % (Manual) Band Neutrophils % Lymphocytes % (Manual) Monocytes % (Manual) Eosinophils % (Manual) Metamyelocytes % Myelocytes % Abs Neuts (Manual) Lymphocytes # (Manual) Monocytes # (Manual) Eosinophils # (Manual) Metamyelocytes # Myelocytes # Platelet Estimate Plt Morphology Comment RBC Morphology Ovalocytes Acanthocytes (Spur) VBG pH VBG pCO2 VBG pO2 VBG HCO3 VBG O2 Saturation VBG Base Excess Sodium Potassium Chloride Carbon Dioxide Anion Gap BUN Creatinine Estim Creat Clear Calc Estimated GFR POC Glucose 132 H 151 H 168 H Random Glucose Calcium Phosphorus Magnesium Albumin 11/29/20 09:17 WBC RBC Hgb Hct MCV MCH MCHC RDW Plt Count MPV Immature Gran % (Auto) Neut % (Auto) Lymph % (Auto) [place] % (Auto) Eos % (Auto) Baso % (Auto) Lymph # (Auto) [place] # (Auto) Eos # (Auto) Baso # (Auto) Abs Immat Gran (auto) Absolute Neuts (auto) Absolute Nucleated RBC Nucleated RBC % (auto) Neutrophils % (Manual) Band Neutrophils % Lymphocytes % (Manual) Monocytes % (Manual) Eosinophils % (Manual) Metamyelocytes % Myelocytes % Abs Neuts (Manual) Lymphocytes # (Manual) Monocytes # (Manual) Eosinophils # (Manual) Metamyelocytes # Myelocytes # Platelet Estimate Plt Morphology Comment RBC Morphology Ovalocytes Acanthocytes (Spur) VBG pH VBG pCO2 VBG pO2 VBG HCO3 VBG O2 Saturation VBG Base Excess Sodium Potassium Chloride Carbon Dioxide Anion Gap BUN Creatinine Estim Creat Clear Calc Estimated GFR POC Glucose 179 H Random Glucose Calcium Phosphorus Magnesium Albumin Microbiology Microbiology Results: Microbiology 11/22/20 08:15 Sputum - Suctioned Gram Stain - Final 11/22/20 08:15 Sputum - Suctioned Sputum Culture - Final Stenotrophomonas maltophilia 11/09/20 19:57 Blood - Venous Blood Culture - Final Coag negative Staphylococcus 11/09/20 20:54 Blood - Venous Blood Culture - Final No growth after 5 days. Progress Note: A&P Assessment and plan (1) Acute respiratory failure with hypoxia: Status: Acute Assessment and Plan: Assessment: 65-year-old lady with multiple medical issues admitted with hypoxia secondary to COVID-19 ARDS now requiring ventilatory support. Plan: Neuro: No acute issues. Cardiac: Underlying diastolic dysfunction, right-sided heart failure, and paroxysmal fibrillation. Continue with rate and rhythm control with propafenone and metoprolol. Apixaban held secondary to development of bloody tracheal secretions. Continue with diuresis. Pulmonary: Acute hypoxic respiratory failure secondary to COVID-19 ARDS. Continue to titrate off ventilatory support as tolerated. FiO2 requirements are slowly improving. Underlying obstructive sleep apnea. Renal: No acute issues. Endo: No acute issues. GI: No acute issues. ID: Sputum culture with stenotrophomonas maltophilia, Levaquin susceptible, likely a colonization. Continue to monitor off antibiotics. COVID-19, status post dexamethasone. Heme/Onc: No acute issues. Psych: No acute issues. Miscellaneous: No acute issues. Prophylaxis: Heparin, famotidine Diet: Tube feeds Critical care time spent: 60 minutes (2) Acute respiratory distress syndrome (ARDS) due to COVID-19 virus: Status: Acute (3) Type 2 diabetes mellitus with chronic kidney disease: Status: Acute (4) Chronic heart failure with preserved ejection fraction (HFpEF): Status: Acute (5) Right heart failure (secondary to left heart failure): Status: Acute (6) Paroxysmal atrial fibrillation: Status: Acute (7) MOISÉS (obstructive sleep apnea): Status: Acute (8) Morbid obesity due to excess calories: Status: Acute Time Spent With Patient Total time spent with greater than 50% in coordination of care (as documented) at patient's floor/unit and/or counseling patient:: 0 Critical Care Time Critical Care Time (minutes): 60
[2020-11-29 10:35] LABS: Glucose, Whole Blood 153 mg/dL (60-115)
[2020-11-29] MEDS: Insulin Regular/NS 100 UNIT/100 ML PLAST..BAG IVCONT (11:25)
--- NOTE | 2020-11-29 11:30 | PC.NURSE ---
Sedation vacation initiated at 11:00, Propofol decreased to 15 mcg/kg/min from 30 per MD. Placed in PS 10/5 with 50% fio2 by MD and RT. Patient able to open eyes but unable to follow commands. RR increased to 35 and O2 saturation trended around 84% on PS settings. At 11:15 patient re-sedated with Propofol titrated back to 30 mcg/kg/min and vent settings switched back to previous PC settings: Rate 18, ipressure 30, peep 8, fio2 60% by RT per MD. RR trending between 18-20 and O2 sats trending in the low 90s. Patient's family updated by MD.
[2020-11-29 11:35] LABS: Glucose, Whole Blood 157 mg/dL (60-115)
[2020-11-29 12:31] LABS: Glucose, Whole Blood 149 mg/dL (60-115)
[2020-11-29] MEDS: propofoL 1,000 MG/100 ML VIAL 35.92 MG IVCONT (12:40)
[2020-11-29 13:47] LABS: Glucose, Whole Blood 138 mg/dL (60-115)
[2020-11-29 14:51] LABS: Glucose, Whole Blood 126 mg/dL (60-115)
[2020-11-29 15:42] LABS: Glucose, Whole Blood 121 mg/dL (60-115)
[2020-11-29 17:08] LABS: Glucose, Whole Blood 97 mg/dL (60-115)
[2020-11-29 17:57] LABS: Glucose, Whole Blood 102 mg/dL (60-115)
[2020-11-29 18:34] LABS: Glucose, Whole Blood 100 mg/dL (60-115)
[2020-11-29 20:38] LABS: Glucose, Whole Blood 91 mg/dL (60-115)
[2020-11-29 21:24] LABS: Glucose, Whole Blood 96 mg/dL (60-115)
[2020-11-29 22:34] LABS: Glucose, Whole Blood 179 mg/dL (60-115)
[2020-11-30] VITALS (33 sets, daily range): BP systolic 92–136; BP diastolic 44–67; PULSE 86–107; RESP 21–29; TEMP 36.8–37.6; O2SAT 88–103
[2020-11-30 00:01] LABS: Glucose, Whole Blood 232 mg/dL (60-115)
[2020-11-30 01:55] LABS: Anion Gap 20 (12-20); Blood Urea Nitrogen 37 mg/dL (9-16); Calcium 9.2 mg/dL (8.4-10.2); Carbon Dioxide 23 mmol/L (22-29); Chloride 96 mmol/L (96-108); Creatinine Clr Calc Pharmacy 75.4; Estimated Glomerular Filt Rate 50; Glucose Random 264 mg/dL (60-115); Potassium 4.3 mmol/L (3.3-5.1); Sodium 135 mmol/L (135-145)
[2020-11-30 01:57] LABS: Troponin-I High Sensitivity 5.4 ng/L (<3.5-17.0)
[2020-11-30 01:58] LABS: Venous Blood Gas Refer to POC result
[2020-11-30 01:59] LABS: VBG Base Excess -2.2 mmol/L; VBG HCO3 21 mmol/L (22-26); VBG pCO2 33 mmHg; VBG pH 7.41 (7.32-7.43); VBG pO2 55 mmHg
--- NOTE | 2020-11-30 02:13 | ECG_ITS ---
Test Reason : rhythm change Blood Pressure : / mmHG Vent. Rate : 105 BPM Atrial Rate : 105 BPM P-R Int : 162 ms QRS Dur : 096 ms QT Int : 360 ms P-R-T Axes : 022 -24 014 degrees QTc Int : 475 ms Sinus tachycardia Voltage criteria for left ventricular hypertrophy Abnormal ECG When compared to the previous EKG of Sinus tachycardia has replaced Atrial fibrillation with rapid ventricular response Referred By: Ginny Price Electronically Signed By:ESTELITA GEORGES MD
[2020-11-30 03:22] LABS: Glucose, Whole Blood 243 mg/dL (60-115)
[2020-11-30] MEDS: propofoL 1,000 MG/100 ML VIAL 26.94 MG IVCONT ×5 (03:33→16:28)
[2020-11-30] MEDS: Heparin Sodium,Porcine 5,000 UNIT/ML VIAL 5000 UNIT SUBCUT ×3 (03:33→20:51)
[2020-11-30] MEDS: Insulin Regular/NS 100 UNIT/100 ML PLAST..BAG IVCONT (03:34)
[2020-11-30 04:35] LABS: Glucose, Whole Blood 211 mg/dL (60-115)
--- NOTE | 2020-11-30 05:51 | PC.NURSE ---
CARE ASSUMED 23:15...REMAINS TUBED/VENTED....PCV/AC MODE...Ve 10-12 l/m...PROPOFOL DRIP TO MAINTAIN VENT SYNCHRONY...INSULIN DRIP PER NOV/CPOE...12AM-01:00:...FIO2 WEANED FROM 50% TO 30%...SAO2 DECREASED FROM 96% TO 90-91%...MONITOR SHOWED S.TACH WITH FREQUENT PVC'S AND ST DEPRESSION ON MONITOR..FIO2 INCREASED TO 60% WITH GRADUAL RESOLUTION OF ST CHANGES AND NEAR RESOLUTION OF PVC'S..ICU MEDICAL ACCOUNTING CLERK PRESENT...12-LEAD EKG'S X2 DONE AND STAT LAB-WORK DRAWN/REVIEWED BY MEDICAL ACCOUNTING CLERK
[2020-11-30 06:14] LABS: Glucose, Whole Blood 184 mg/dL (60-115)
[2020-11-30] MEDS: Nystatin Powder 15 GM BOTTLE 1 APPL TOPICAL ×2 (07:18→20:52)
[2020-11-30] MEDS: Cholecalciferol (Vitamin D3) 25 MCG TABLET 50 MCG PO (07:19)
[2020-11-30] MEDS: Chlorhexidine Gluc Oral Rinse 15 ML MOUTHWASH BUCCAL ×3 (07:19→20:52)
[2020-11-30] MEDS: Metoprolol Tartrate 25 MG TABLET PO ×2 (07:19→20:52)
[2020-11-30] MEDS: Furosemide 40 MG/4 ML VIAL IVPUSH ×2 (07:19→16:28)
[2020-11-30] MEDS: Ascorbic Acid 500 MG TABLET PO (07:19)
[2020-11-30] MEDS: Famotidine/PF 20 MG/2 ML VIAL IVPUSH (07:20)
[2020-11-30] MEDS: 0.9 % Sodium Chloride Flush 3 ML SYRINGE IVFLUSH ×3 (07:20→23:12)
[2020-11-30 07:56] LABS: Glucose, Whole Blood 173 mg/dL (60-115)
[2020-11-30 08:15] LABS: Hematocrit 36.6 % (37-47); Hemoglobin 11.2 g/dl (12.0-16.0); Mean Corpuscular HGB Conc 30.6 g/dl (31.0-35.0); Mean Corpuscular Hemoglobin 25.6 pg (27.0-33.0); Mean Corpuscular Volume 83.8 fL (80-98); Mean Platelet Volume 10.2 fL (9.4-12.3); Platelet Count 175 X10*3/uL (160-400); Red Blood Count 4.37 X10*6/uL (4.20-5.50); Red Cell Distribution Width 16.5 % (11.0-16.0)
[2020-11-30 08:19] LABS: VBG Base Excess 0.9 mmol/L; VBG HCO3 28 mmol/L (22-26); VBG pCO2 55 mmHg; VBG pH 7.31 (7.32-7.43); VBG pO2 37 mmHg
[2020-11-30 08:41] LABS: Atypical Lymph Absolute Manual 0.1 x10*3/uL; Atypical Lymphs Percent Manual 1 % (0-6); Band Neutrophils Percent 9 % (3-5); Basophils Abs Manual 0.1 X10*3/uL (0.0-0.3); Basophils Percent Manual 1 % (0-1); Eosinophils Percent Manual 7 % (0-4); Lymphocytes Absolute Manual 1.1 X10*3/uL (0.6-4.8); Lymphocytes Percent Manual 8 % (20-40); Metamyelocytes Absolute 0.1 X10*3/uL; Metamyelocytes Percent 1 %; Monocytes Absolute Manual 0.3 X10*3/uL (0.0-1.2); Monocytes Percent Manual 2 % (2-11); Neutrophils Absolute Manual 11.2 X10*3/uL (2.2-7.9); Neutrophils Percent Manual 71 % (45-73)
[2020-11-30 08:42] LABS: Hypochromasia 1+; Ovalocytes 1+; Platelet Estimate NORMAL (NORMAL); Platelet Morphology Comment NORMAL; RBC Morphology NOTED
[2020-11-30 08:43] LABS: Acanthocytes 1+
[2020-11-30 08:44] LABS: Albumin Level 3.5 g/dL (3.5-5.0); Anion Gap 16 (12-20); Blood Urea Nitrogen 37 mg/dL (9-16); Calcium 9.4 mg/dL (8.4-10.2); Carbon Dioxide 28 mmol/L (22-29); Chloride 96 mmol/L (96-108); Creatinine Clr Calc Pharmacy 80.6; Estimated Glomerular Filt Rate 54; Glucose Random 204 mg/dL (60-115); Phosphorus 5.7 mg/dL (2.7-4.5); Potassium 3.9 mmol/L (3.3-5.1); Sodium 136 mmol/L (135-145)
[2020-11-30 08:56] LABS: Glucose, Whole Blood 167 mg/dL (60-115)
--- NOTE | 2020-11-30 11:22 | P.PNCC_ITS ---
Subjective Subjective Date of Service: 11/30/20 Interval History: ICU day 13 for acute hypoxic respiratory failure, COVID-19 ARDS, congestive heart failure, AFib. 65-year-old lady with underlying multiple medical problems including coronary artery disease, diastolic congestive heart failure, right heart failure secondary to left heart failure, AFib on anticoagulation, COPD, hypertension, morbid obesity, diabetes admitted on 11/09/2020 with shortness of breath secondary to COVID-19. Patient has initially been admitted to general medical [facility] and treated with dexamethasone, however her FiO2 requirement continue to deteriorate requiring transfer to intensive care unit, intubation, and ventilatory support on 11/18/2020. Her sputum culture has been positive for stenotrophomonas which is likely a colonization. She has had an episode of AFib with RVR requiring cardioversion, now controlled on propafenone and metoprolol. No events overnight. Physical Exam Vital Signs: Vital Signs: Last Vital Signs Temp 99.0 F 11/30/20 10:00 Pulse 100 11/30/20 11:08 Resp 24 H 11/30/20 11:08 BP 136/59 L 11/30/20 11:08 Pulse Ox 92 11/30/20 11:08 Body Mass Index 53.2 Const: General: no acute distress and other (Sedated on the vent, arousable with sedation vacation) Eyes: Sclerae: sclerae normal EOM: EOMs intact bilaterally Neck: Neck: Yes no lymphadenopathy, Yes trachea midline and Yes supple Resp: Auscultation: crackles (Diffuse bilateral) Cardio: Rate: tachycardic Rhythm: regular rhythm Heart sounds: no g allops, no murmurs and no rubs GI: Palpation (GI): Soft to palpation and Other GI palpation findings present ( Nontender) Auscultation: normal bowel sounds Extrem: General: No clubbing, No cyanosis and Yes pedal edema (Trace bilateral) Objective Data Labs CBC & Chem 7: 11/30/20 08:08 11/30/20 08:08 Labs: Laboratory Results - last 24 hr 11/29/20 11/29/20 11/29/20 10:32 11:31 12:28 WBC RBC Hgb Hct MCV MCH MCHC RDW Plt Count MPV Immature Gran % (Auto) Neut % (Auto) Lymph % (Auto) Hodgeman % (Auto) Eos % (Auto) Baso % (Auto) Lymph # (Auto) Hodgeman # (Auto) Eos # (Auto) Baso # (Auto) Abs Immat Gran (auto) Absolute Neuts (auto) Absolute Nucleated RBC Nucleated RBC % (auto) Neutrophils % (Manual) Band Neutrophils % Lymphocytes % (Manual) Atypical Lymphs % (Man) Monocytes % (Manual) Eosinophils % (Manual) Basophils % (Manual) Metamyelocytes % Abs Neuts (Manual) Lymphocytes # (Manual) Atyp Lymphs # (Manual) Monocytes # (Manual) Eosinophils # (Manual) Basophils # (Manual) Metamyelocytes # Platelet Estimate Plt Morphology Comment RBC Morphology Hypochromasia Ovalocytes Acanthocytes (Spur) VBG pH VBG pCO2 VBG pO2 VBG HCO3 VBG O2 Saturation VBG Base Excess Sodium Potassium Chloride Carbon Dioxide Anion Gap BUN Creatinine Estim Creat Clear Calc Estimated GFR POC Glucose 153 H 157 H 149 H Random Glucose Calcium Phosphorus Magnesium Troponin I High Sens Albumin 11/29/20 11/29/20 11/29/20 13:42 14:47 15:38 WBC RBC Hgb Hct MCV MCH MCHC RDW Plt Count MPV Immature Gran % (Auto) Neut % (Auto) Lymph % (Auto) Hodgeman % (Auto) Eos % (Auto) Baso % (Auto) Lymph # (Auto) Hodgeman # (Auto) Eos # (Auto) Baso # (Auto) Abs Immat Gran (auto) Absolute Neuts (auto) Absolute Nucleated RBC Nucleated RBC % (auto) Neutrophils % (Manual) Band Neutrophils % Lymphocytes % (Manual) Atypical Lymphs % (Man) Monocytes % (Manual) Eosinophils % (Manual) Basophils % (Manual) Metamyelocytes % Abs Neuts (Manual) Lymphocytes # (Manual) Atyp Lymphs # (Manual) Monocytes # (Manual) Eosinophils # (Manual) Basophils # (Manual) Metamyelocytes # Platelet Estimate Plt Morphology Comment RBC Morphology Hypochromasia Ovalocytes Acanthocytes (Spur) VBG pH VBG pCO2 VBG pO2 VBG HCO3 VBG O2 Saturation VBG Base Excess Sodium Potassium Chloride Carbon Dioxide Anion Gap BUN Creatinine Estim Creat Clear Calc Estimated GFR POC Glucose 138 H 126 H 121 H Random Glucose Calcium Phosphorus Magnesium Troponin I High Sens Albumin 11/29/20 11/29/20 11/29/20 17:04 17:54 18:30 WBC RBC Hgb Hct MCV MCH MCHC RDW Plt Count MPV Immature Gran % (Auto) Neut % (Auto) Lymph % (Auto) Hodgeman % (Auto) Eos % (Auto) Baso % (Auto) Lymph # (Auto) Hodgeman # (Auto) Eos # (Auto) Baso # (Auto) Abs Immat Gran (auto) Absolute Neuts (auto) Absolute Nucleated RBC Nucleated RBC % (auto) Neutrophils % (Manual) Band Neutrophils % Lymphocytes % (Manual) Atypical Lymphs % (Man) Monocytes % (Manual) Eosinophils % (Manual) Basophils % (Manual) Metamyelocytes % Abs Neuts (Manual) Lymphocytes # (Manual) Atyp Lymphs # (Manual) Monocytes # (Manual) Eosinophils # (Manual) Basophils # (Manual) Metamyelocytes # Platelet Estimate Plt Morphology Comment RBC Morphology Hypochromasia Ovalocytes Acanthocytes (Spur) VBG pH VBG pCO2 VBG pO2 VBG HCO3 VBG O2 Saturation VBG Base Excess Sodium Potassium Chloride Carbon Dioxide Anion Gap BUN Creatinine Estim Creat Clear Calc Estimated GFR POC Glucose 97 102 100 Random Glucose Calcium Phosphorus Magnesium Troponin I High Sens Albumin 11/29/20 11/29/20 11/29/20 20:33 21:13 22:25 WBC RBC Hgb Hct MCV MCH MCHC RDW Plt Count MPV Immature Gran % (Auto) Neut % (Auto) Lymph % (Auto) Hodgeman % (Auto) Eos % (Auto) Baso % (Auto) Lymph # (Auto) Hodgeman # (Auto) Eos # (Auto) Baso # (Auto) Abs Immat Gran (auto) Absolute Neuts (auto) Absolute Nucleated RBC Nucleated RBC % (auto) Neutrophils % (Manual) Band Neutrophils % Lymphocytes % (Manual) Atypical Lymphs % (Man) Monocytes % (Manual) Eosinophils % (Manual) Basophils % (Manual) Metamyelocytes % Abs Neuts (Manual) Lymphocytes # (Manual) Atyp Lymphs # (Manual) Monocytes # (Manual) Eosinophils # (Manual) Basophils # (Manual) Metamyelocytes # Platelet Estimate Plt Morphology Comment RBC Morphology Hypochromasia Ovalocytes Acanthocytes (Spur) VBG pH VBG pCO2 VBG pO2 VBG HCO3 VBG O2 Saturation VBG Base Excess Sodium Potassium Chloride Carbon Dioxide Anion Gap BUN Creatinine Estim Creat Clear Calc Estimated GFR POC Glucose 91 96 179 H Random Glucose Calcium Phosphorus Magnesium Troponin I High Sens Albumin 11/29/20 11/30/20 11/30/20 23:52 00:50 00:50 WBC RBC Hgb Hct MCV MCH MCHC RDW Plt Count MPV Immature Gran % (Auto) Neut % (Auto) Lymph % (Auto) Hodgeman % (Auto) Eos % (Auto) Baso % (Auto) Lymph # (Auto) Hodgeman # (Auto) Eos # (Auto) Baso # (Auto) Abs Immat Gran (auto) Absolute Neuts (auto) Absolute Nucleated RBC Nucleated RBC % (auto) Neutrophils % (Manual) Band Neutrophils % Lymphocytes % (Manual) Atypical Lymphs % (Man) Monocytes % (Manual) Eosinophils % (Manual) Basophils % (Manual) Metamyelocytes % Abs Neuts (Manual) Lymphocytes # (Manual) Atyp Lymphs # (Manual) Monocytes # (Manual) Eosinophils # (Manual) Basophils # (Manual) Metamyelocytes # Platelet Estimate Plt Morphology Comment RBC Morphology Hypochromasia Ovalocytes Acanthocytes (Spur) VBG pH VBG pCO2 VBG pO2 VBG HCO3 VBG O2 Saturation VBG Base Excess Sodium 135 Potassium 4.3 Chloride 96 Carbon Dioxide 23 Anion Gap 20 BUN 37 H Creatinine 1.09 Estim Creat Clear Calc 75.4 Estimated GFR 50 POC Glucose 232 H Random Glucose 264 H D Calcium 9.2 Phosphorus Magnesium Troponin I High Sens 5.4 Albumin 11/30/20 11/30/20 11/30/20 01:07 03:09 04:30 WBC RBC Hgb Hct MCV MCH MCHC RDW Plt Count MPV Immature Gran % (Auto) Neut % (Auto) Lymph % (Auto) Hodgeman % (Auto) Eos % (Auto) Baso % (Auto) Lymph # (Auto) Hodgeman # (Auto) Eos # (Auto) Baso # (Auto) Abs Immat Gran (auto) Absolute Neuts (auto) Absolute Nucleated RBC Nucleated RBC % (auto) Neutrophils % (Manual) Band Neutrophils % Lymphocytes % (Manual) Atypical Lymphs % (Man) Monocytes % (Manual) Eosinophils % (Manual) Basophils % (Manual) Metamyelocytes % Abs Neuts (Manual) Lymphocytes # (Manual) Atyp Lymphs # (Manual) Monocytes # (Manual) Eosinophils # (Manual) Basophils # (Manual) Metamyelocytes # Platelet Estimate Plt Morphology Comment RBC Morphology Hypochromasia Ovalocytes Acanthocytes (Spur) VBG pH 7.41 VBG pCO2 33 VBG pO2 55 VBG HCO3 21 L VBG O2 Saturation 86.0 VBG Base Excess -2.2 Sodium Potassium Chloride Carbon Dioxide Anion Gap BUN Creatinine Estim Creat Clear Calc Estimated GFR POC Glucose 243 H 211 H Random Glucose Calcium Phosphorus Magnesium Troponin I High Sens Albumin 11/30/20 11/30/20 11/30/20 06:06 07:32 08:08 WBC 14.0 H RBC 4.37 Hgb 11.2 L Hct 36.6 L MCV 83.8 MCH 25.6 L MCHC 30.6 L RDW 16.5 H Plt Count 175 MPV 10.2 Immature Gran % (Auto) Cancelled Neut % (Auto) Cancelled Lymph % (Auto) Cancelled Hodgeman % (Auto) Cancelled Eos % (Auto) Cancelled Baso % (Auto) Cancelled Lymph # (Auto) Cancelled Hodgeman # (Auto) Cancelled Eos # (Auto) Cancelled Baso # (Auto) Cancelled Abs Immat Gran (auto) Cancelled Absolute Neuts (auto) Cancelled Absolute Nucleated RBC 0.000 Nucleated RBC % (auto) 0.0 Neutrophils % (Manual) 71 Band Neutrophils % 9 H Lymphocytes % (Manual) 8 L Atypical Lymphs % (Man) 1 Monocytes % (Manual) 2 Eosinophils % (Manual) 7 H Basophils % (Manual) 1 Metamyelocytes % 1 Abs Neuts (Manual) 11.2 H Lymphocytes # (Manual) 1.1 Atyp Lymphs # (Manual) 0.1 Monocytes # (Manual) 0.3 Eosinophils # (Manual) 1.0 H Basophils # (Manual) 0.1 Metamyelocytes # 0.1 Platelet Estimate NORMAL Plt Morphology Comment NORMAL RBC Morphology NOTED Hypochromasia 1+ Ovalocytes 1+ Acanthocytes (Spur) 1+ VBG pH VBG pCO2 VBG pO2 VBG HCO3 VBG O2 Saturation VBG Base Excess Sodium Potassium Chloride Carbon Dioxide Anion Gap BUN Creatinine Estim Creat Clear Calc Estimated GFR POC Glucose 184 H 173 H Random Glucose Calcium Phosphorus Magnesium Troponin I High Sens Albumin 11/30/20 11/30/20 11/30/20 08:08 08:12 08:51 WBC RBC Hgb Hct MCV MCH MCHC RDW Plt Count MPV Immature Gran % (Auto) Neut % (Auto) Lymph % (Auto) Hodgeman % (Auto) Eos % (Auto) Baso % (Auto) Lymph # (Auto) Hodgeman # (Auto) Eos # (Auto) Baso # (Auto) Abs Immat Gran (auto) Absolute Neuts (auto) Absolute Nucleated RBC Nucleated RBC % (auto) Neutrophils % (Manual) Band Neutrophils % Lymphocytes % (Manual) Atypical Lymphs % (Man) Monocytes % (Manual) Eosinophils % (Manual) Basophils % (Manual) Metamyelocytes % Abs Neuts (Manual) Lymphocytes # (Manual) Atyp Lymphs # (Manual) Monocytes # (Manual) Eosinophils # (Manual) Basophils # (Manual) Metamyelocytes # Platelet Estimate Plt Morphology Comment RBC Morphology Hypochromasia Ovalocytes Acanthocytes (Spur) VBG pH 7.31 L VBG pCO2 55 VBG pO2 37 VBG HCO3 28 H VBG O2 Saturation 53.0 VBG Base Excess 0.9 Sodium 136 Potassium 3.9 Chloride 96 Carbon Dioxide 28 Anion Gap 16 BUN 37 H Creatinine 1.02 Estim Creat Clear Calc 80.6 Estimated GFR 54 POC Glucose 167 H Random Glucose 204 H Calcium 9.4 Phosphorus 5.7 H Magnesium 2.0 Troponin I High Sens Albumin 3.5 Microbiology Microbiology Results: Microbiology 11/22/20 08:15 Sputum - Suctioned Gram Stain - Final 11/22/20 08:15 Sputum - Suctioned Sputum Culture - Final Stenotrophomonas maltophilia 11/09/20 19:57 Blood - Venous Blood Culture - Final Coag negative Staphylococcus 11/09/20 20:54 Blood - Venous Blood Culture - Final No growth after 5 days. Progress Note: A&P Assessment and plan (1) Acute respiratory failure with hypoxia: Status: Acute Assessment and Plan: Assessment: 65-year-old lady with multiple medical issues admitted with hypoxia secondary to COVID-19 ARDS now requiring ventilatory support. Plan: Neuro: No acute issues. Cardiac: Underlying diastolic dysfunction, right-sided heart failure, and pa roxysmal fibrillation status post cardioversion. Continue with rate and rhythm control with propafenone and metoprolol. Apixaban held secondary to development of bloody tracheal secretions. Continue with diuresis. Pulmonary: Acute hypoxic respiratory failure secondary to COVID-19 ARDS. Continue to titrate off ventilatory support as tolerated. FiO2 requirements are slowly improving. Underlying obstructive sleep apnea. Renal: No acute issues. Endo: No acute issues. GI: No acute issues. ID: Sputum culture with stenotrophomonas maltophilia, Levaquin susceptible, now with increasing leukocytosis, will treat with 7 day course of Levaquin. COVID- 19, status post dexamethasone. Heme/Onc: No acute issues. Psych: No acute issues. Miscellaneous: No acute issues. Prophylaxis: Heparin, famotidine Diet: Tube feeds Critical care time spent: 60 minutes (2) Acute respiratory distress syndrome (ARDS) due to COVID-19 virus: Status: Acute (3) Type 2 diabetes mellitus with chronic kidney disease: Status: Acute (4) Chronic heart failure with preserved ejection fraction (HFpEF): Status: Acute (5) Right heart failure (secondary to left heart failure): Status: Acute (6) Paroxysmal atrial fibrillation: Status: Acute (7) Morbid obesity due to excess calories: Status: Acute Time Spent With Patient Total time spent with greater than 50% in coordination of care (as documented) at patient's floor/unit and/or counseling patient:: 0 Critical Care Time Critical Care Time (minutes): 60
[2020-11-30 11:39] LABS: Glucose, Whole Blood 203 mg/dL (60-115)
[2020-11-30 12:52] LABS: Venous Blood Gas Refer to POC result
[2020-11-30 13:10] LABS: Glucose, Whole Blood 223 mg/dL (60-115)
[2020-11-30] MEDS: levoFLOXacin/D5W 750 MG/150 ML PIGGYBACK 100 MG IV (13:17)
[2020-11-30 15:28] LABS: Glucose, Whole Blood 179 mg/dL (60-115)
[2020-11-30 16:49] LABS: Glucose, Whole Blood 184 mg/dL (60-115)
[2020-11-30 18:54] LABS: Glucose, Whole Blood 209 mg/dL (60-115)
[2020-11-30] MEDS: propofoL 1,000 MG/100 ML VIAL 22.45 MG IVCONT (20:52)
[2020-11-30 21:22] LABS: Glucose, Whole Blood 212 mg/dL (60-115)
[2020-11-30 23:05] LABS: Glucose, Whole Blood 180 mg/dL (60-115)
[2020-12-01] VITALS (32 sets, daily range): BP systolic 104–145; BP diastolic 33–68; PULSE 85–111; RESP 12–31; TEMP 36.4–37.5; O2SAT 89–97
[2020-12-01] MEDS: propofoL 1,000 MG/100 ML VIAL 22.45 MG IVCONT ×3 (00:56→09:50)
[2020-12-01] MEDS: Insulin Regular/NS 100 UNIT/100 ML PLAST..BAG IVCONT (00:56)
[2020-12-01 01:06] LABS: Glucose, Whole Blood 226 mg/dL (60-115)
[2020-12-01 03:16] LABS: Glucose, Whole Blood 213 mg/dL (60-115)
[2020-12-01 03:16] LABS: Glucose, Whole Blood 216 mg/dL (60-115)
[2020-12-01] MEDS: Heparin Sodium,Porcine 5,000 UNIT/ML VIAL 5000 UNIT SUBCUT ×3 (03:34→22:24)
[2020-12-01 05:29] LABS: Glucose, Whole Blood 202 mg/dL (60-115)
[2020-12-01 05:51] LABS: VBG Base Excess 1.5 mmol/L; VBG HCO3 26 mmol/L (22-26); VBG pCO2 43 mmHg; VBG pH 7.39 (7.32-7.43); VBG pO2 52 mmHg
[2020-12-01 05:52] LABS: Venous Blood Gas Refer to POC result
[2020-12-01 05:59] LABS: Hematocrit 36.3 % (37-47); Hemoglobin 10.8 g/dl (12.0-16.0); Mean Corpuscular HGB Conc 29.8 g/dl (31.0-35.0); Mean Corpuscular Hemoglobin 25.4 pg (27.0-33.0); Mean Corpuscular Volume 85.4 fL (80-98); Mean Platelet Volume 9.6 fL (9.4-12.3); NRBC Pct Auto 0.2 /100WBC (0.0-0.2); Platelet Count 165 X10*3/uL (160-400); Red Blood Count 4.25 X10*6/uL (4.20-5.50); Red Cell Distribution Width 16.5 % (11.0-16.0); White Blood Count 11.3 X10*3/uL (4.8-10.8)
[2020-12-01 06:28] LABS: Band Neutrophils Percent 9 % (3-5); Eosinophils Absolute Manual 0.9 X10*3/UL (0.0-0.8); Eosinophils Percent Manual 8 % (0-4); Lymphocytes Absolute Manual 0.7 X10*3/uL (0.6-4.8); Lymphocytes Percent Manual 6 % (20-40); Metamyelocytes Absolute 0.7 X10*3/uL; Metamyelocytes Percent 6 %; Monocytes Absolute Manual 0.7 X10*3/uL (0.0-1.2); Monocytes Percent Manual 6 % (2-11); Neutrophils Absolute Manual 8.4 X10*3/uL (2.2-7.9); Neutrophils Percent Manual 65 % (45-73)
[2020-12-01 06:29] LABS: RBC Morphology NOTED
[2020-12-01 06:30] LABS: Acanthocytes 1+; Hypochromasia 1+; Large Platelet PRESENT; Microcytosis 1+; Platelet Estimate NORMAL (NORMAL); Platelet Morphology Comment NOTED; Polychromasia 1+; Toxic Vacuolation PRESENT
[2020-12-01 06:31] LABS: Alanine Aminotransferase 24 U/L (0-31); Albumin Level 3.2 g/dL (3.5-5.0); Alkaline Phosphatase 81 U/L (39-117); Anion Gap 15 (12-20); Aspartate Amino Transferase 29 U/L (5-31); Bilirubin Total 0.6 mg/dL (0.0-1.0); Blood Urea Nitrogen 38 mg/dL (9-16); Calcium 9.1 mg/dL (8.4-10.2); Carbon Dioxide 26 mmol/L (22-29); Chloride 97 mmol/L (96-108); Creatinine Clr Calc Pharmacy 78.3; Estimated Glomerular Filt Rate 52; Glucose Random 226 mg/dL (60-115); Phosphorus 5.3 mg/dL (2.7-4.5); Potassium 3.5 mmol/L (3.3-5.1); Sodium 134 mmol/L (135-145); Total Protein 6.8 g/dL (6.5-8.0)
[2020-12-01 07:10] LABS: Glucose, Whole Blood 188 mg/dL (60-115)
[2020-12-01 09:05] LABS: Glucose, Whole Blood 202 mg/dL (60-115)
[2020-12-01] MEDS: Chlorhexidine Gluc Oral Rinse 15 ML MOUTHWASH BUCCAL ×4 (09:47→22:24)
[2020-12-01] MEDS: Metoprolol Tartrate 25 MG TABLET PO ×2 (09:47→22:25)
[2020-12-01] MEDS: Famotidine/PF 20 MG/2 ML VIAL IVPUSH (09:48)
[2020-12-01] MEDS: 0.9 % Sodium Chloride Flush 3 ML SYRINGE IVFLUSH ×2 (09:48→16:01)
[2020-12-01] MEDS: Nystatin Powder 15 GM BOTTLE 1 APPL TOPICAL ×2 (09:49→22:27)
[2020-12-01 11:04] LABS: Glucose, Whole Blood 177 mg/dL (60-115)
--- NOTE | 2020-12-01 11:05 | MHC.CLN ---
F/U RECOMMEND CHANGE IN TF FORMULA TO PROMOTE AT MAX GOAL 40CC/HR WITH 30CC PROSOURCE BID TO PROVIDE 1080KCALS (1672 WITH SEDATION; 28KCALS/KG BASED ON IBW), 90G PROTEIN (1.5G/KG), 805CC FREE WATER FROM FORMULA WILL D/C FREE WATER PER MD DURING MDRs MONITOR TOLERANCE, RESIDUALS AND LYTES
[2020-12-01] MEDS: Furosemide 40 MG/4 ML VIAL IVPUSH ×2 (11:08→17:44)
[2020-12-01 13:00] LABS: Glucose, Whole Blood 175 mg/dL (60-115)
[2020-12-01] MEDS: Doxycycline Hyclate 100 MG in 0.9 % Sodium Chloride 250 ML 166.67 MG IV (13:00)
--- NOTE | 2020-12-01 14:55 | PM.CCPN ---
Subjective Subjective Date of Service: 12/01/20 Interval History: Mrs. Carr was admitted to the ICU on November 18 with acute respiratory failure secondary to COVID pneumonia. The patient is a 65-year-old F with PMHx of type 2 diabetes w CKD (last baseline BUN/creat 37/1.3 on 08/03/20), HTN, morbid obesity, ischemic heart disease, chronic diastolic CHF, obstructive sleep apnea, obesity/hypoventilation syndrome noncompliant with CPAP, along with: Hyperlipidemia Chronic pancreatitis COPD Degenerative arthritis of knees Diverticulosis Dysuria Memory loss Pulmonary embolism Right heart failure (secondary to left heart failure) SVT Diabetic polyneuropathy Vertigo She presented to the ED on Nov 09 with h/o one week of SOB and cough. On arrival, Sat was 50% on room air. COVID PCR was positive. She was put on HFNC and admitted to Medicine. She was given Decadron and Remdesivir and 10 days of ceftiriaxone. She required brief NIV w CPAP/BiPAP betw Nov 13-. On November 18, she failed NIV bec of hypoxemia and was brought down to the ICU and intubated. On November 22, her WBC spiked and a sputum showed 4+ polys, 4+ GNRs, and culture grew stenotrophomonas. She was given three days of Zosyn. She had an episode of AFib with RVR requiring cardioversion, now controlled on propafenone and metoprolol. Had also been on Eliquis, which was stopped 2? bloody tracheal secretions. She has been afebrile almost the entire time she has been the here, except for a few isolated temperature spikes, the last one was a single temperature to 102 degrees on November 29. Yesterday, her WBC bumped to 14 and she was started on Levaquin. Peak DDimer was 4295 on November 18, Ferritin 1887 on Nov 09, CRP 20 on November 23, PCT 0.3 on November 18. On November 29, FiO2 got as low as 40%, but the patient failed a weaning trial. Since then, FiO2 has increased, and is up to 50% today and PEEP is up to 10cm. She?s lightly sedated on propofol @ 15ug. See Vital Signs below. She?s afebrile, HR 107, BP 145/67. On the vent set at AC/PC 14, pressures 30/10/50%, with PIP 40cm, RR is 29, Vt 390cc, Ve 11L, ET CO2 30, Sat 90%. No JVD, normal exp phase, very obese, no gross edema, neuro nonfocal (albeit noninteractive). CURRENT MEDICATIONS also include: Insulin gtt at 5u/hr. Lasix 40mg bid Pepcid 20 mg daily Heparin 5000u TID Metoprolol 25 bid Propafenone Doxycycline (added today) LABORATORY DATA: As noted below. Notably, white count is down to 11. IMAGING: CXR done yesterday shows diffuse moderate-severe bilat ARDS. MICROBIOLOGY: Sputum GS from today showsf 2+ polys, no orgs. Last sputum from 11/22 showed 4+ polys, 4+ GNR, and grew stenotrophomonas. IMPRESSION: 1. Underlying morbid obesity, DM, and CAD. 2. Underlying right heart failure 2? morbid obesity and MOISÉS. 3. Pneumonia and ARDS due to COVID-19. Symptom onset approximately Nov 02. 4. Acute hypoxic respiratory failure secondary to above. She?s already had Remdesivir and ten days of Decadron. I?m going to start her now on Solumedrol 80mg bid, Vit C, Vit D, and thiamine, and melatonin. Likely that she?ll be on the ventilator another two weeks (at least), if she survives. Should have tracheostomy as soon as possible. Given that she?s only on 50% FiO2 at this time, I would estimate prognosis for survival at about 50%, maybe 40%. Her prognosis would be better if her CXR or her PIPs were better. If she was requiring 90% FiO2 or more, I would have estimated survival at 0-10%, given her comorbidities. 5. AFib w/ RVR. Adequately controlled. If she has another run, I would prob restart her Eliquis. 6. H/o CHF. BUN and creat prob close to baseline, no reason not to continue to diurese; stop if/when renal indices rise. 7. Renal. ?Prerenal? ratio of her indices may be 2? RHF, in which case, diuresis would cause a rapid rise in the indices. Continue the Lasis and we?ll see what happens. 8. Diabetes: Continue insulin drip. 9. ID: Wwitch Levaquin to Doxy and follow the WBC. 10. Metabolic. Replete K+. 11. Nutrtition. On full dose tube feeds. 12. DVT prophylaxis: Heparin 5000 u TID. I spoke with the patient?s daughter Luz at length this afternoon (about 40 min), with the rest of the children listening in by conference call. I discussed the seriousness of their mom?s condition, along with prognosis, as outlined above. I discussed tracheostomy and suggested that we do it as soon as possible. They have tentatively agreed. Critical care time (including full chart rev and hosp course summary): 2+ hrs Physical Exam Vital Signs: Vital Signs: Last Vital Signs Temp 98.4 F 12/01/20 14:00 Pulse 100 12/01/20 14:00 Resp 12 12/01/20 14:00 BP 123/59 L 12/01/20 14:00 Pulse Ox 91 L 12/01/20 14:00 Body Mass Index 53.2 Objective Data Labs CBC & Chem 7: 12/01/20 05:39 12/01/20 05:39 Labs: Laboratory Results - last 24 hr 11/30/20 11/30/20 11/30/20 15:24 16:45 18:50 WBC RBC Hgb Hct MCV MCH MCHC RDW Plt Count MPV Immature Gran % (Auto) Neut % (Auto) Lymph % (Auto) Cowley % (Auto) Eos % (Auto) Baso % (Auto) Lymph # (Auto) Cowley # (Auto) Eos # (Auto) Baso # (Auto) Abs Immat Gran (auto) Absolute Neuts (auto) Absolute Nucleated RBC Nucleated RBC % (auto) Neutrophils % (Manual) Band Neutrophils % Lymphocytes % (Manual) Monocytes % (Manual) Eosinophils % (Manual) Metamyelocytes % Abs Neuts (Manual) Lymphocytes # (Manual) Monocytes # (Manual) Eosinophils # (Manual) Metamyelocytes # Toxic Vacuolation Platelet Estimate Large Platelets Plt Morphology Comment RBC Morphology Polychromasia Hypochromasia Microcytosis Acanthocytes (Spur) VBG pH VBG pCO2 VBG pO2 VBG HCO3 VBG O2 Saturation VBG Base Excess Sodium Potassium Chloride Carbon Dioxide Anion Gap BUN Creatinine Estim Creat Clear Calc Estimated GFR POC Glucose 179 H 184 H 209 H Random Glucose Calcium Phosphorus Magnesium Total Bilirubin AST ALT Alkaline Phosphatase Total Protein Albumin 11/30/20 11/30/20 12/01/20 21:03 22:56 01:01 WBC RBC Hgb Hct MCV MCH MCHC RDW Plt Count MPV Immature Gran % (Auto) Neut % (Auto) Lymph % (Auto) Cowley % (Auto) Eos % (Auto) Baso % (Auto) Lymph # (Auto) Cowley # (Auto) Eos # (Auto) Baso # (Auto) Abs Immat Gran (auto) Absolute Neuts (auto) Absolute Nucleated RBC Nucleated RBC % (auto) Neutrophils % (Manual) Band Neutrophils % Lymphocytes % (Manual) Monocytes % (Manual) Eosinophils % (Manual) Metamyelocytes % Abs Neuts (Manual) Lymphocytes # (Manual) Monocytes # (Manual) Eosinophils # (Manual) Metamyelocytes # Toxic Vacuolation Platelet Estimate Large Platelets Plt Morphology Comment RBC Morphology Polychromasia Hypochromasia Microcytosis Acanthocytes (Spur) VBG pH VBG pCO2 VBG pO2 VBG HCO3 VBG O2 Saturation VBG Base Excess Sodium Potassium Chloride Carbon Dioxide Anion Gap BUN Creatinine Estim Creat Clear Calc Estimated GFR POC Glucose 212 H 180 H 226 H Random Glucose Calcium Phosphorus Magnesium Total Bilirubin AST ALT Alkaline Phosphatase Total Protein Albumin 12/01/20 12/01/20 12/01/20 03:08 03:10 05:25 WBC RBC Hgb Hct MCV MCH MCHC RDW Plt Count MPV Immature Gran % (Auto) Neut % (Auto) Lymph % (Auto) Cowley % (Auto) Eos % (Auto) Baso % (Auto) Lymph # (Auto) Cowley # (Auto) Eos # (Auto) Baso # (Auto) Abs Immat Gran (auto) Absolute Neuts (auto) Absolute Nucleated RBC Nucleated RBC % (auto) Neutrophils % (Manual) Band Neutrophils % Lymphocytes % (Manual) Monocytes % (Manual) Eosinophils % (Manual) Metamyelocytes % Abs Neuts (Manual) Lymphocytes # (Manual) Monocytes # (Manual) Eosinophils # (Manual) Metamyelocytes # Toxic Vacuolation Platelet Estimate Large Platelets Plt Morphology Comment RBC Morphology Polychromasia Hypochromasia Microcytosis Acanthocytes (Spur) VBG pH VBG pCO2 VBG pO2 VBG HCO3 VBG O2 Saturation VBG Base Excess Sodium Potassium Chloride Carbon Dioxide Anion Gap BUN Creatinine Estim Creat Clear Calc Estimated GFR POC Glucose 216 H 213 H 202 H Random Glucose Calcium Phosphorus Magnesium Total Bilirubin AST ALT Alkaline Phosphatase Total Protein Albumin 12/01/20 12/01/2012/01/21 05:39 05:39 05:46 WBC 11.3 H RBC 4.25 Hgb 10.8 L Hct 36.3 L MCV 85.4 MCH 25.4 L MCHC 29.8 L RDW 16.5 H Plt Count 165 MPV 9.6 Immature Gran % (Auto) Cancelled Neut % (Auto) Cancelled Lymph % (Auto) Cancelled Cowley % (Auto) Cancelled Eos % (Auto) Cancelled Baso % (Auto) Cancelled Lymph # (Auto) Cancelled Cowley # (Auto) Cancelled Eos # (Auto) Cancelled Baso # (Auto) Cancelled Abs Immat Gran (auto) Cancelled Absolute Neuts (auto) Cancelled Absolute Nucleated RBC 0.020 H Nucleated RBC % (auto) 0.2 Neutrophils % (Manual) 65 Band Neutrophils % 9 H Lymphocytes % (Manual) 6 L Monocytes % (Manual) 6 Eosinophils % (Manual) 8 H Metamyelocytes % 6 Abs Neuts (Manual) 8.4 H Lymphocytes # (Manual) 0.7 Monocytes # (Manual) 0.7 Eosinophils # (Manual) 0.9 H Metamyelocytes # 0.7 Toxic Vacuolation PRESENT Platelet Estimate NORMAL Large Platelets PRESENT Plt Morphology Comment NOTED RBC Morphology NOTED Polychromasia 1+ Hypochromasia 1+ Microcytosis 1+ Acanthocytes (Spur) 1+ VBG pH 7.39 VBG pCO2 43 VBG pO2 52 VBG HCO3 26 VBG O2 Saturation 82.0 VBG Base Excess 1.5 Sodium 134 L Potassium 3.5 Chloride 97 Carbon Dioxide 26 Anion Gap 15 BUN 38 H Creatinine 1.05 Estim Creat Clear Calc 78.3 Estimated GFR 52 POC Glucose Random Glucose 226 H Calcium 9.1 Phosphorus 5.3 H Magnesium 2.0 Total Bilirubin 0.6 AST 29 ALT 24 Alkaline Phosphatase 81 Total Protein 6.8 Albumin 3.2 L 12/01/20 12/01/20 12/01/20 07:05 09:02 11:01 WBC RBC Hgb Hct MCV MCH MCHC RDW Plt Count MPV Immature Gran % (Auto) Neut % (Auto) Lymph % (Auto) Cowley % (Auto) Eos % (Auto) Baso % (Auto) Lymph # (Auto) Cowley # (Auto) Eos # (Auto) Baso # (Auto) Abs Immat Gran (auto) Absolute Neuts (auto) Absolute Nucleated RBC Nucleated RBC % (auto) Neutrophils % (Manual) Band Neutrophils % Lymphocytes % (Manual) Monocytes % (Manual) Eosinophils % (Manual) Metamyelocytes % Abs Neuts (Manual) Lymphocytes # (Manual) Monocytes # (Manual) Eosinophils # (Manual) Metamyelocytes # Toxic Vacuolation Platelet Estimate Large Platelets Plt Morphology Comment RBC Morphology Polychromasia Hypochromasia Microcytosis Acanthocytes (Spur) VBG pH VBG pCO2 VBG pO2 VBG HCO3 VBG O2 Saturation VBG Base Excess Sodium Potassium Chloride Carbon Dioxide Anion Gap BUN Creatinine Estim Creat Clear Calc Estimated GFR POC Glucose 188 H 202 H 177 H Random Glucose Calcium Phosphorus Magnesium Total Bilirubin AST ALT Alkaline Phosphatase Total Protein Albumin 12/01/20 12:56 WBC RBC Hgb Hct MCV MCH MCHC RDW Plt Count MPV Immature Gran % (Auto) Neut % (Auto) Lymph % (Auto) Cowley % (Auto) Eos % (Auto) Baso % (Auto) Lymph # (Auto) Cowley # (Auto) Eos # (Auto) Baso # (Auto) Abs Immat Gran (auto) Absolute Neuts (auto) Absolute Nucleated RBC Nucleated RBC % (auto) Neutrophils % (Manual) Band Neutrophils % Lymphocytes % (Manual) Monocytes % (Manual) Eosinophils % (Manual) Metamyelocytes % Abs Neuts (Manual) Lymphocytes # (Manual) Monocytes # (Manual) Eosinophils # (Manual) Metamyelocytes # Toxic Vacuolation Platelet Estimate Large Platelets Plt Morphology Comment RBC Morphology Polychromasia Hypochromasia Microcytosis Acanthocytes (Spur) VBG pH VBG pCO2 VBG pO2 VBG HCO3 VBG O2 Saturation VBG Base Excess Sodium Potassium Chloride Carbon Dioxide Anion Gap BUN Creatinine Estim Creat Clear Calc Estimated GFR POC Glucose 175 H Random Glucose Calcium Phosphorus Magnesium Total Bilirubin AST ALT Alkaline Phosphatase Total Protein Albumin Microbiology Microbiology Results: Microbiology 11/22/20 08:15 Sputum - Suctioned Gram Stain - Final 11/22/20 08:15 Sputum - Suctioned Sputum Culture - Final Stenotrophomonas maltophilia 11/09/20 19:57 Blood - Venous Blood Culture - Final Coag negative Staphylococcus 11/09/20 20:54 Blood - Venous Blood Culture - Final No growth after 5 days. Progress Note: A&P Time Spent With Patient Time: Total time spent is greater than 50% in coordination of care (as documented) at patient's floor/unit and/or counseling patient: Total time spent with greater than 50% in coordination of care (as documented) at patient's floor/unit and/or counseling patient:: 0 Critical Care Time Critical Care Time (minutes): 120
[2020-12-01 15:11] LABS: Glucose, Whole Blood 182 mg/dL (60-115)
[2020-12-01] MEDS: propofoL 1,000 MG/100 ML VIAL 17.96 MG IVCONT ×2 (16:00→22:29)
[2020-12-01] MEDS: methylPREDNISolone Sod Succ 125 MG/2 ML VIAL 80 MG IVPUSH (17:44)
[2020-12-01] MEDS: Ascorbic Acid 500 MG TABLET 1000 MG G-TUBE (17:45)
[2020-12-01] MEDS: Potassium Chloride Packet 20 MEQ PACKET 40 MEQ G-TUBE ×2 (17:46→22:25)
[2020-12-01] MEDS: Insulin Regular/NS 100 UNIT/100 ML PLAST..BAG 6 UNIT IVCONT (18:00)
[2020-12-01] MEDS: fentaNYL citrate/NS 1,000 MCG/100 ML PLAST..BAG 5 MCG IVCONT (18:34)
[2020-12-01] MEDS: fentaNYL citrate/PF 100 MCG/2 ML VIAL 50 MCG IVPUSH (18:35)
[2020-12-01 19:22] LABS: Glucose, Whole Blood 180 mg/dL (60-115)
[2020-12-01 19:55] LABS: D Dimer 603 NG/ML
--- NOTE | 2020-12-01 20:14 | PC.NURSE ---
assumed care at 0700. patient was sedate on propofol, which was turned down slightly to 15 mcg/kg/hour, and patient was able to open eyes to command and to squeeze her left hand slightly, also positive cough and gag. Patient remains intubated #8 ett, 25 cm lyubov, Pressure control settings were changed slightly this evening per MD: ac 14; pressure 30; peep 10; fio2 50%; minute volumes about 11-12; tidal volumes around 400's. Patient has coarse crackles throughout to auscultation on exhalation and inspiratory and expiratory rhonchi throughout; MD aware. Thick creamy/sales secretions, sputum culture sent this evening. Noted accessory muscle and abdominal breathing use on new vent settings, MD notified, new orders for 50 mcg IV fentanyl and to start fentanyl gtt. Patient has distant heart sounds; sinus rhythm/sinus tachycardia on monitor, 1st degree avb in morning now resolved, frequent PVCs; 40 meq klor per cpoe; started solumedrol 80 mg iv q12 per cpoe. patient getting lasix 40 mg bid IV, and did void about 1 liter over this 12 hours. no BM this shift. TF diet changed to remove water flushes. family updated and daughter Luz in to visit with permission and discussed goals of care with MD, plan to receive trach and peg. ;
[2020-12-01] MEDS: Thiamine HCL 100 MG TABLET 200 MG G-TUBE (22:25)
[2020-12-01] MEDS: Melatonin 3 MG TABLET 9 MG G-TUBE (22:26)
[2020-12-01 23:25] LABS: Glucose, Whole Blood 147 mg/dL (60-115)
[2020-12-01 23:25] LABS: Glucose, Whole Blood 235 mg/dL (60-115)
[2020-12-02] VITALS (34 sets, daily range): BP systolic 107–155; BP diastolic 41–68; PULSE 68–96; RESP 13–20; TEMP 35.8–36.6; O2SAT 92–99
[2020-12-02] MEDS: 0.9 % Sodium Chloride Flush 3 ML SYRINGE IVFLUSH ×3 (01:03→15:06)
[2020-12-02] MEDS: Doxycycline Hyclate 100 MG in 0.9 % Sodium Chloride 250 ML 166.67 MG IV ×3 (01:04→23:55)
[2020-12-02] MEDS: Ascorbic Acid 500 MG TABLET 1000 MG G-TUBE ×5 (01:04→23:54)
[2020-12-02 01:22] LABS: Glucose, Whole Blood 254 mg/dL (60-115)
[2020-12-02] MEDS: propofoL 1,000 MG/100 ML VIAL 17.96 MG IVCONT ×6 (02:51→23:54)
[2020-12-02 03:10] LABS: Glucose, Whole Blood 270 mg/dL (60-115)
[2020-12-02] MEDS: methylPREDNISolone Sod Succ 125 MG/2 ML VIAL 80 MG IVPUSH ×2 (05:14→16:30)
[2020-12-02] MEDS: Heparin Sodium,Porcine 5,000 UNIT/ML VIAL 5000 UNIT SUBCUT ×3 (05:14→20:30)
[2020-12-02 05:34] LABS: Hematocrit 34.4 % (37-47); Hemoglobin 10.6 g/dl (12.0-16.0); Mean Corpuscular HGB Conc 30.8 g/dl (31.0-35.0); Mean Corpuscular Hemoglobin 25.8 pg (27.0-33.0); Mean Corpuscular Volume 83.7 fL (80-98); Mean Platelet Volume 9.8 fL (9.4-12.3); Platelet Count 180 X10*3/uL (160-400); Red Blood Count 4.11 X10*6/uL (4.20-5.50); Red Cell Distribution Width 16.7 % (11.0-16.0); White Blood Count 10.8 X10*3/uL (4.8-10.8)
[2020-12-02 05:34] LABS: VBG Base Excess 0.8 mmol/L; VBG HCO3 27 mmol/L (22-26); VBG pCO2 52 mmHg; VBG pH 7.32 (7.32-7.43); VBG pO2 62 mmHg
[2020-12-02 05:36] LABS: Venous Blood Gas Refer to POC result
[2020-12-02 06:07] LABS: Band Neutrophils Percent 2 % (3-5); Eosinophils Absolute Manual 0.1 X10*3/UL (0.0-0.8); Eosinophils Percent Manual 1 % (0-4); Lymphocytes Absolute Manual 1.4 X10*3/uL (0.6-4.8); Lymphocytes Percent Manual 13 % (20-40); Monocytes Absolute Manual 0.2 X10*3/uL (0.0-1.2); Monocytes Percent Manual 2 % (2-11); Myelocytes Absolute 0.3 X10*/uL; Myelocytes Percent 3 %; Neutrophils Absolute Manual 8.7 X10*3/uL (2.2-7.9); Neutrophils Percent Manual 79 % (45-73)
[2020-12-02 06:08] LABS: Hypochromasia 1+; Microcytosis 1+; Platelet Estimate NORMAL (NORMAL); Platelet Morphology Comment NORMAL; Polychromasia 1+; RBC Morphology NOTED
[2020-12-02 06:23] LABS: Anion Gap 14 (12-20); Blood Urea Nitrogen 38 mg/dL (9-16); C Reactive Protein 9.13 mg/dL (< or = 0.50); Carbon Dioxide 27 mmol/L (22-29); Chloride 100 mmol/L (96-108); Creatinine Clr Calc Pharmacy 76.2; Estimated Glomerular Filt Rate 51; Glucose Random 265 mg/dL (60-115); Magnesium 1.8 mg/dL (1.6-2.6); Phosphorus 5.4 mg/dL (2.7-4.5); Sodium 136 mmol/L (135-145)
[2020-12-02 06:31] LABS: Procalcitonin 0.14 ng/mL
[2020-12-02 06:40] LABS: Potassium 5.4 mmol/L (3.3-5.1)
[2020-12-02 06:42] LABS: B Type Natriuretic Peptide 202 pg/mL (<100)
[2020-12-02 06:56] LABS: Ferritin 555 ng/mL (10-250)
[2020-12-02 07:31] LABS: Glucose, Whole Blood 158 mg/dL (60-115)
[2020-12-02 07:31] LABS: Glucose, Whole Blood 215 mg/dL (60-115)
[2020-12-02] MEDS: fentaNYL citrate/NS 1,000 MCG/100 ML PLAST..BAG 5 MCG IVCONT (07:32)
[2020-12-02] MEDS: Nystatin Powder 15 GM BOTTLE 1 APPL TOPICAL ×2 (07:55→20:33)
[2020-12-02] MEDS: Furosemide 40 MG/4 ML VIAL IVPUSH ×2 (07:56→16:30)
[2020-12-02] MEDS: Famotidine/PF 20 MG/2 ML VIAL IVPUSH (07:57)
[2020-12-02] MEDS: Cholecalciferol (Vitamin D3) 25 MCG TABLET 50 MCG G-TUBE (07:57)
[2020-12-02] MEDS: Metoprolol Tartrate 25 MG TABLET PO ×2 (07:57→20:31)
[2020-12-02] MEDS: Thiamine HCL 100 MG TABLET 200 MG G-TUBE ×2 (07:57→20:31)
[2020-12-02 09:09] LABS: Glucose, Whole Blood 273 mg/dL (60-115)
[2020-12-02] MEDS: Insulin Regular/NS 100 UNIT/100 ML PLAST..BAG 7 UNIT IVCONT (09:57)
[2020-12-02 11:08] LABS: Glucose, Whole Blood 271 mg/dL (60-115)
[2020-12-02 14:28] LABS: Glucose, Whole Blood 309 mg/dL (60-115)
[2020-12-02] MEDS: Chlorhexidine Gluc Oral Rinse 15 ML MOUTHWASH BUCCAL ×2 (15:05→20:30)
[2020-12-02 15:17] LABS: Glucose, Whole Blood 323 mg/dL (60-115)
[2020-12-02 16:59] LABS: INTERNATIONAL NORM RATIO 1.2 (0.9-1.1); Prothrombin Time 14.1 SEC (10.8-13.0)
[2020-12-02 16:59] LABS: Glucose, Whole Blood 302 mg/dL (60-115)
--- NOTE | 2020-12-02 18:28 | PM.CCPN ---
Subjective Subjective Date of Service: 12/02/20 Interval History: Mrs. Carr was admitted to the ICU on November 18 with acute respiratory failure secondary to COVID pneumonia. The patient is a 65-year-old F with PMHx of type 2 diabetes w CKD (last baseline BUN/creat 37/1.3 on 08/03/20), HTN, morbid obesity, ischemic heart disease, chronic diastolic CHF, obstructive sleep apnea, obesity/hypoventilation syndrome noncompliant with CPAP, along with: Hyperlipidemia Chronic pancreatitis COPD Degenerative arthritis of knees Diverticulosis Dysuria Memory loss Pulmonary embolism Right heart failure (secondary to left heart failure) SVT Diabetic polyneuropathy Vertigo She presented to the ED on Nov 09 with h/o one week of SOB and cough. On arrival, Sat was 50% on room air. COVID PCR was positive. She was put on HFNC and admitted to Medicine. She was given Decadron and Remdesivir and 10 days of ceftiriaxone. She required brief NIV w CPAP/BiPAP betw Nov 13-. On November 18, she failed NIV bec of hypoxemia and was brought down to the ICU and intubated. On November 22, her WBC spiked and a sputum showed 4+ polys, 4+ GNRs, and culture grew stenotrophomonas. She was given three days of Zosyn. She had an episode of AFib with RVR requiring cardioversion, now controlled on propafenone and metoprolol. Had also been on Eliquis, which was stopped 2? bloody tracheal secretions. She has been afebrile almost the entire time she has been the here, except for a few isolated temperature spikes, the last one was a single temperature to 102 degrees on November 29. Yesterday, her WBC bumped to 14 and she was started on Levaquin. Peak DDimer was 4295 on November 18, Ferritin 1887 on Nov 09, CRP 20 on November 23, PCT 0.3 on November 18. On November 29, FiO2 got as low as 40%, but the patient failed a weaning trial. Since then, FiO2 has increased to the 50-60% range. Today, she?s lightly sedated on propofol 20ug, fentanyl @ 50ug. See Vital Signs below. HR 93, BP 119/55. She remains afebrile. On the vent at AC/PC 14, pressures 30/10/55%, RR is 14, Vt 520cc, PIP 41, Ve down to 7.7L, ET CO2 41, Sat 94%. CVBG this morning showed 7.32/52/0. No JVD, normal exp phase, very obese, no gross edema, neuro nonfocal (albeit noninteractive). CURRENT MEDICATIONS also include: Insulin gtt at 10u/hr. Solumedrol 80 mg bid Vit C Vit D Pepcid Melatonin Thiamine Lasix 40mg bid Heparin 5000u TID Metoprolol 25 bid Propafenone Doxycycline (started yesterday) LABORATORY DATA: As noted below. Notably, BUN/creat up to 38/1.1, K up to 5.4 after repletion yest. IMAGING: CXR done 11/30 shows diffuse moderate-severe bilat ARDS. MICROBIOLOGY: Sputum GS from today showsf 2+ polys, no orgs. Culture is growing 3+ GNR. Last sputum from 11/22 showed 4+ polys, 4+ GNR, and grew stenotrophomonas. IMPRESSION: 1. Underlying morbid obesity, DM, and CAD. 2. Underlying right heart failure 2? morbid obesity and MOISÉS. 3. Pneumonia and ARDS due to COVID-19. Symptom onset approximately Nov 02. 4. Acute hypoxic respiratory failure secondary to above. She?s already had Remdesivir and ten days of Decadron. I started her 12/02 on Solumedrol 80mg bid, Vit C, Vit D, thiamine, and melatonin. Likely that she?ll be on the ventilator another two weeks (at least), if she survives. I?ve scheduled tracheostomy and PEG with Dr. Mendoza for tomorrow. Given that she?s only on 50% FiO2 at this time, I would estimate prognosis for survival at about 50%, maybe 40%. Her prognosis would be better if her CXR or her PIPs were better. If she was requiring 90% FiO2 or more, I would have estimated survival at 0-10%, given her comorbidities. 5. AFib w/ RVR. Adequately controlled. If she has another run, I would prob restart her Eliquis. 6. H/o CHF. BUN and creat prob close to baseline, no reason not to continue to diurese; stop if/when renal indices rise. 7. Renal. ?Prerenal? ratio of her indices may be 2? RHF, in which case, diuresis would cause a rapid rise in the indices. Continue the Lasix and we?ll see what happens. 8. Diabetes: Continue insulin drip. Dose requirement is increasing bec of the solu-Medrol. 9. ID: Started doxycycline yest bec of elevated WBC. Remains afebrile. 10. Nutrtition. On full dose tube feeds. 11. DVT prophylaxis: Heparin 5000 u TID. I spoke with the patient?s daughter Luz at length yesterday afternoon, with the rest of the children listening in by conference call. I discussed the seriousness of their mom?s condition, along with prognosis, as outlined above. I discussed tracheostomy & PEG and obtained their agreement. Discussed further with Luz (HCP) today. Critical care time: 50+ min. Physical Exam Vital Signs: Vital Signs: Last Vital Signs Temp 97.3 F 12/02/20 18:00 Pulse 91 12/02/20 18:00 Resp 13 12/02/20 18:00 BP 119/55 L 12/02/20 18:00 Pulse Ox 92 12/02/20 18:00 Body Mass Index 53.2 Objective Data Labs CBC & Chem 7: 12/02/20 05:24 12/02/20 05:24 Labs: Laboratory Results - last 24 hr 12/01/20 12/01/20 12/01/20 19:14 19:17 21:11 WBC RBC Hgb Hct MCV MCH MCHC RDW Plt Count MPV Immature Gran % (Auto) Neut % (Auto) Lymph % (Auto) Grainger % (Auto) Eos % (Auto) Baso % (Auto) Lymph # (Auto) Grainger # (Auto) Eos # (Auto) Baso # (Auto) Abs Immat Gran (auto) Absolute Neuts (auto) Absolute Nucleated RBC Nucleated RBC % (auto) Neutrophils % (Manual) Band Neutrophils % Lymphocytes % (Manual) Monocytes % (Manual) Eosinophils % (Manual) Myelocytes % Abs Neuts (Manual) Lymphocytes # (Manual) Monocytes # (Manual) Eosinophils # (Manual) Myelocytes # Platelet Estimate Plt Morphology Comment RBC Morphology Polychromasia Hypochromasia Microcytosis PT INR D-Dimer 603 VBG pH VBG pCO2 VBG pO2 VBG HCO3 VBG O2 Saturation VBG Base Excess Sodium Potassium Chloride Carbon Dioxide Anion Gap BUN Creatinine Estim Creat Clear Calc Estimated GFR POC Glucose 180 H 147 H Random Glucose Calcium Phosphorus Magnesium Ferritin C-Reactive Protein B-Natriuretic Peptide Procalcitonin Blood Type Antibody Screen 12/01/20 12/02/20 12/02/20 23:18 01:18 03:04 WBC RBC Hgb Hct MCV MCH MCHC RDW Plt Count MPV Immature Gran % (Auto) Neut % (Auto) Lymph % (Auto) Grainger % (Auto) Eos % (Auto) Baso % (Auto) Lymph # (Auto) Grainger # (Auto) Eos # (Auto) Baso # (Auto) Abs Immat Gran (auto) Absolute Neuts (auto) Absolute Nucleated RBC Nucleated RBC % (auto) Neutrophils % (Manual) Band Neutrophils % Lymphocytes % (Manual) Monocytes % (Manual) Eosinophils % (Manual) Myelocytes % Abs Neuts (Manual) Lymphocytes # (Manual) Monocytes # (Manual) Eosinophils # (Manual) Myelocytes # Platelet Estimate Plt Morphology Comment RBC Morphology Polychromasia Hypochromasia Microcytosis PT INR D-Dimer VBG pH VBG pCO2 VBG pO2 VBG HCO3 VBG O2 Saturation VBG Base Excess Sodium Potassium Chloride Carbon Dioxide Anion Gap BUN Creatinine Estim Creat Clear Calc Estimated GFR POC Glucose 235 H 254 H 270 H Random Glucose Calcium Phosphorus Magnesium Ferritin C-Reactive Protein B-Natriuretic Peptide Procalcitonin Blood Type Antibody Screen 12/02/20 12/02/20 12/02/20 05:24 05:24 05:24 WBC 10.8 RBC 4.11 L Hgb 10.6 L Hct 34.4 L MCV 83.7 MCH 25.8 L MCHC 30.8 L RDW 16.7 H Plt Count 180 MPV 9.8 Immature Gran % (Auto) Cancelled Neut % (Auto) Cancelled Lymph % (Auto) Cancelled Grainger % (Auto) Cancelled Eos % (Auto) Cancelled Baso % (Auto) Cancelled Lymph # (Auto) Cancelled Grainger # (Auto) Cancelled Eos # (Auto) Cancelled Baso # (Auto) Cancelled Abs Immat Gran (auto) Cancelled Absolute Neuts (auto) Cancelled Absolute Nucleated RBC 0.000 Nucleated RBC % (auto) 0.0 Neutrophils % (Manual) 79 H Band Neutrophils % 2 L Lymphocytes % (Manual) 13 L Monocytes % (Manual) 2 Eosinophils % (Manual) 1 Myelocytes % 3 Abs Neuts (Manual) 8.7 H Lymphocytes # (Manual) 1.4 Monocytes # (Manual) 0.2 Eosinophils # (Manual) 0.1 Myelocytes # 0.3 Platelet Estimate NORMAL Plt Morphology Comment NORMAL RBC Morphology NOTED Polychromasia 1+ Hypochromasia 1+ Microcytosis 1+ PT INR D-Dimer VBG pH VBG pCO2 VBG pO2 VBG HCO3 VBG O2 Saturation VBG Base Excess Sodium 136 Potassium 5.4 H D Chloride 100 Carbon Dioxide 27 Anion Gap 14 BUN 38 H Creatinine 1.08 Estim Creat Clear Calc 76.2 Estimated GFR 51 POC Glucose Random Glucose 265 H Calcium 9.0 Phosphorus 5.4 H Magnesium 1.8 Ferritin 555 H C-Reactive Protein 9.13 H B-Natriuretic Peptide 202 H Procalcitonin Blood Type Antibody Screen 12/02/20 12/02/20 12/02/20 05:24 05:25 05:26 WBC RBC Hgb Hct MCV MCH MCHC RDW Plt Count MPV Immature Gran % (Auto) Neut % (Auto) Lymph % (Auto) Grainger % (Auto) Eos % (Auto) Baso % (Auto) Lymph # (Auto) Grainger # (Auto) Eos # (Auto) Baso # (Auto) Abs Immat Gran (auto) Absolute Neuts (auto) Absolute Nucleated RBC Nucleated RBC % (auto) Neutrophils % (Manual) Band Neutrophils % Lymphocytes % (Manual) Monocytes % (Manual) Eosinophils % (Manual) Myelocytes % Abs Neuts (Manual) Lymphocytes # (Manual) Monocytes # (Manual) Eosinophils # (Manual) Myelocytes # Platelet Estimate Plt Morphology Comment RBC Morphology Polychromasia Hypochromasia Microcytosis PT INR D-Dimer VBG pH 7.32 VBG pCO2 52 VBG pO2 62 VBG HCO3 27 H VBG O2 Saturation 89.0 VBG Base Excess 0.8 Sodium Potassium Chloride Carbon Dioxide Anion Gap BUN Creatinine Estim Creat Clear Calc Estimated GFR POC Glucose 158 H Random Glucose Calcium Phosphorus Magnesium Ferritin C-Reactive Protein B-Natriuretic Peptide Procalcitonin 0.14 Blood Type Antibody Screen 12/02/20 12/02/20 12/02/20 07:26 09:06 11:04 WBC RBC Hgb Hct MCV MCH MCHC RDW Plt Count MPV Immature Gran % (Auto) Neut % (Auto) Lymph % (Auto) Grainger % (Auto) Eos % (Auto) Baso % (Auto) Lymph # (Auto) Grainger # (Auto) Eos # (Auto) Baso # (Auto) Abs Immat Gran (auto) Absolute Neuts (auto) Absolute Nucleated RBC Nucleated RBC % (auto) Neutrophils % (Manual) Band Neutrophils % Lymphocytes % (Manual) Monocytes % (Manual) Eosinophils % (Manual) Myelocytes % Abs Neuts (Manual) Lymphocytes # (Manual) Monocytes # (Manual) Eosinophils # (Manual) Myelocytes # Platelet Estimate Plt Morphology Comment RBC Morphology Polychromasia Hypochromasia Microcytosis PT INR D-Dimer VBG pH VBG pCO2 VBG pO2 VBG HCO3 VBG O2 Saturation VBG Base Excess Sodium Potassium Chloride Carbon Dioxide Anion Gap BUN Creatinine Estim Creat Clear Calc Estimated GFR POC Glucose 215 H 273 H 271 H Random Glucose Calcium Phosphorus Magnesium Ferritin C-Reactive Protein B-Natriuretic Peptide Procalcitonin Blood Type Antibody Screen 12/02/20 12/02/20 12/02/20 14:24 15:06 16:36 WBC RBC Hgb Hct MCV MCH MCHC RDW Plt Count MPV Immature Gran % (Auto) Neut % (Auto) Lymph % (Auto) Grainger % (Auto) Eos % (Auto) Baso % (Auto) Lymph # (Auto) Grainger # (Auto) Eos # (Auto) Baso # (Auto) Abs Immat Gran (auto) Absolute Neuts (auto) Absolute Nucleated RBC Nucleated RBC % (auto) Neutrophils % (Manual) Band Neutrophils % Lymphocytes % (Manual) Monocytes % (Manual) Eosinophils % (Manual) Myelocytes % Abs Neuts (Manual) Lymphocytes # (Manual) Monocytes # (Manual) Eosinophils # (Manual) Myelocytes # Platelet Estimate Plt Morphology Comment RBC Morphology Polychromasia Hypochromasia Microcytosis PT INR D-Dimer VBG pH VBG pCO2 VBG pO2 VBG HCO3 VBG O2 Saturation VBG Base Excess Sodium Potassium Chloride Carbon Dioxide Anion Gap BUN Creatinine Estim Creat Clear Calc Estimated GFR POC Glucose 309 H 323 H 302 H Random Glucose Calcium Phosphorus Magnesium Ferritin C-Reactive Protein B-Natriuretic Peptide Procalcitonin Blood Type Antibody Screen 12/02/20 12/02/20 16:38 16:38 WBC RBC Hgb Hct MCV MCH MCHC RDW Plt Count MPV Immature Gran % (Auto) Neut % (Auto) Lymph % (Auto) Grainger % (Auto) Eos % (Auto) Baso % (Auto) Lymph # (Auto) Grainger # (Auto) Eos # (Auto) Baso # (Auto) Abs Immat Gran (auto) Absolute Neuts (auto) Absolute Nucleated RBC Nucleated RBC % (auto) Neutrophils % (Manual) Band Neutrophils % Lymphocytes % (Manual) Monocytes % (Manual) Eosinophils % (Manual) Myelocytes % Abs Neuts (Manual) Lymphocytes # (Manual) Monocytes # (Manual) Eosinophils # (Manual) Myelocytes # Platelet Estimate Plt Morphology Comment RBC Morphology Polychromasia Hypochromasia Microcytosis PT 14.1 H INR 1.2 H D-Dimer VBG pH VBG pCO2 VBG pO2 VBG HCO3 VBG O2 Saturation VBG Base Excess Sodium Potassium Chloride Carbon Dioxide Anion Gap BUN Creatinine Estim Creat Clear Calc Estimated GFR POC Glucose Random Glucose Calcium Phosphorus Magnesium Ferritin C-Reactive Protein B-Natriuretic Peptide Procalcitonin Blood Type A Positive Antibody Screen NEGATIVE Microbiology Microbiology Results: Microbiology 12/01/20 14:39 Sputum - Suctioned Gram Stain - Final 12/01/20 14:39 Sputum - Suctioned Sputum Culture - Preliminary Gram negative emory 11/22/20 08:15 Sputum - Suctioned Gram Stain - Final 11/22/20 08:15 Sputum - Suctioned Sputum Culture - Final Stenotrophomonas maltophilia 11/09/20 19:57 Blood - Venous Blood Culture - Final Coag negative Staphylococcus 11/09/20 20:54 Blood - Venous Blood Culture - Final No growth after 5 days. Progress Note: A&P Time Spent With Patient Time: Total time spent is greater than 50% in coordination of care (as documented) at patient's floor/unit and/or counseling patient: Total time spent with greater than 50% in coordination of care (as documented) at patient's floor/unit and/or counseling patient:: 0 Critical Care Time Critical Care Time (minutes): 60
[2020-12-02] MEDS: Metoclopramide HCl 10 MG/2 ML VIAL IVPUSH ×2 (18:53→23:53)
[2020-12-02] MEDS: Melatonin 3 MG TABLET 9 MG G-TUBE (20:31)
[2020-12-02] MEDS: Insulin Regular/NS 100 UNIT/100 ML PLAST..BAG 10 UNIT IVCONT (20:31)
[2020-12-02 21:45] LABS: Glucose, Whole Blood 301 mg/dL (60-115)
[2020-12-02 23:37] LABS: Glucose, Whole Blood 287 mg/dL (60-115)
[2020-12-03] VITALS (32 sets, daily range): BP systolic 99–143; BP diastolic 40–78; PULSE 72–97; RESP 12–29; TEMP 35.2–36.6; O2SAT 89–97
[2020-12-03] MEDS: 0.9 % Sodium Chloride Flush 3 ML SYRINGE IVFLUSH ×3 (00:32→14:06)
[2020-12-03] MEDS: fentaNYL citrate/NS 1,000 MCG/100 ML PLAST..BAG 5 MCG IVCONT (02:02)
[2020-12-03] MEDS: Heparin Sodium,Porcine 5,000 UNIT/ML VIAL 5000 UNIT SUBCUT ×2 (03:25→19:59)
[2020-12-03 03:55] LABS: Glucose, Whole Blood 227 mg/dL (60-115)
[2020-12-03 03:55] LABS: Glucose, Whole Blood 195 mg/dL (60-115)
[2020-12-03 05:40] LABS: Hematocrit 33.5 % (37-47); Hemoglobin 10.3 g/dl (12.0-16.0); Mean Corpuscular HGB Conc 30.7 g/dl (31.0-35.0); Mean Corpuscular Hemoglobin 26.1 pg (27.0-33.0); Mean Corpuscular Volume 84.8 fL (80-98); Mean Platelet Volume 9.7 fL (9.4-12.3); Platelet Count 176 X10*3/uL (160-400); Red Blood Count 3.95 X10*6/uL (4.20-5.50); Red Cell Distribution Width 16.9 % (11.0-16.0); White Blood Count 11.3 X10*3/uL (4.8-10.8)
[2020-12-03] MEDS: propofoL 1,000 MG/100 ML VIAL 17.96 MG IVCONT ×4 (05:48→20:45)
[2020-12-03] MEDS: Metoclopramide HCl 10 MG/2 ML VIAL IVPUSH ×2 (05:49→11:30)
[2020-12-03] MEDS: Ascorbic Acid 500 MG TABLET 1000 MG G-TUBE ×2 (05:49→20:01)
[2020-12-03] MEDS: methylPREDNISolone Sod Succ 125 MG/2 ML VIAL 80 MG IVPUSH ×2 (05:49→19:59)
[2020-12-03] MEDS: Insulin Regular/NS 100 UNIT/100 ML PLAST..BAG IVCONT (05:50)
[2020-12-03 06:03] LABS: Atypical Lymph Absolute Manual 0.1 x10*3/uL; Atypical Lymphs Percent Manual 1 % (0-6); Band Neutrophils Percent 4 % (3-5); Hypochromasia 1+; Lymphocytes Absolute Manual 0.6 X10*3/uL (0.6-4.8); Lymphocytes Percent Manual 5 % (20-40); Metamyelocytes Absolute 0.2 X10*3/uL; Metamyelocytes Percent 2 %; Microcytosis 1+; Monocytes Absolute Manual 0.7 X10*3/uL (0.0-1.2); Monocytes Percent Manual 6 % (2-11); Myelocytes Absolute 0.1 X10*/uL; Myelocytes Percent 1 %; Neutrophils Absolute Manual 9.6 X10*3/uL (2.2-7.9); Neutrophils Percent Manual 81 % (45-73); Platelet Estimate NORMAL (NORMAL); Platelet Morphology Comment NOTED; Polychromasia 1+; RBC Morphology NOTED; Toxic Vacuolation PRESENT
[2020-12-03 06:04] LABS: Large Platelet PRESENT
[2020-12-03 06:25] LABS: Anion Gap 15 (12-20); Blood Urea Nitrogen 59 mg/dL (9-16); Calcium 8.9 mg/dL (8.4-10.2); Carbon Dioxide 26 mmol/L (22-29); Chloride 98 mmol/L (96-108); Creatinine Clr Calc Pharmacy 64.3; Estimated Glomerular Filt Rate 42; Glucose Random 199 mg/dL (60-115); Magnesium 2.1 mg/dL (1.6-2.6); Phosphorus 6.9 mg/dL (2.7-4.5); Potassium 4.8 mmol/L (3.3-5.1); Sodium 134 mmol/L (135-145)
[2020-12-03 06:29] LABS: Glucose, Whole Blood 190 mg/dL (60-115)
[2020-12-03 07:28] LABS: Glucose, Whole Blood 196 mg/dL (60-115)
[2020-12-03 08:05] LABS: COVID-19 Test Negative (Negative)
[2020-12-03] MEDS: Chlorhexidine Gluc Oral Rinse 15 ML MOUTHWASH BUCCAL ×3 (08:39→20:03)
[2020-12-03] MEDS: Furosemide 40 MG/4 ML VIAL IVPUSH ×2 (08:39→20:00)
[2020-12-03] MEDS: Famotidine/PF 20 MG/2 ML VIAL IVPUSH (08:39)
[2020-12-03] MEDS: Cholecalciferol (Vitamin D3) 25 MCG TABLET 50 MCG G-TUBE (08:39)
[2020-12-03] MEDS: Nystatin Powder 15 GM BOTTLE 1 APPL TOPICAL ×2 (08:40→20:02)
[2020-12-03] MEDS: Metoprolol Tartrate 25 MG TABLET PO ×2 (08:40→20:01)
[2020-12-03] MEDS: Thiamine HCL 100 MG TABLET 200 MG G-TUBE ×2 (08:40→20:01)
--- NOTE | 2020-12-03 09:45 | MHC.CLN ---
F/U PT CURRENTLY NPO WHEN TF NEEDED, RECOMMEND GLUCERNA AT MAX GOAL 50CC/HR WITH 30CC PROSOURCE BID AND 120CC FREE WATER FLUSHES Q 4HRS PROVIDES 1320KCALS (22KCALS/KG BASED ON IBW), 80G PROTEIN (1.4G/KG), 1744CC TOTAL WATER FROM FORMULA AND FLUSH (29.5CC/KG) MONITOR TOLERANCE, RESIDUALS AND LYTES
[2020-12-03 10:56] LABS: Glucose, Whole Blood 231 mg/dL (60-115)
[2020-12-03] MEDS: Doxycycline Hyclate 100 MG in 0.9 % Sodium Chloride 250 ML 166.67 MG IV (11:30)
--- NOTE | 2020-12-03 14:07 | MHC.CM.PN ---
Pt is scheduled for a peg and trach procedure today at 4pm. This will necessitate her needing LTAC placement and/or STR at a facility that can accomodate a new trach ( matured by 01/02 ) Call placed to dtr Luz to inform her of pt's need to transfer to an LTAC or STR (trach credentialed and after maturity). Explained the limited LTAC choices and current admission wait lists - Luz understanding of above: agreed to f/u with her once procedures occur and referrals are made.
--- NOTE | 2020-12-03 15:56 | P.CONAN_ITS ---
[facility] Active Problems Active Problems: All Active Problems (Updated 11/25/20 @ 15:26 by Scarlet lam MD) Infection due to Stenotrophomonas maltophilia (Acute) Acute respiratory failure with hypoxia (Acute) Acute respiratory distress syndrome (ARDS) due to COVID-19 virus (Acute) Fever, unknown origin (Acute) Pressure injury of buttock, stage 2 (Acute) Pneumonia due to 2019-nCoV (Acute) Hypoxia (Acute) Pneumonia due to COVID-19 virus (Acute) Type 2 diabetes mellitus with chronic kidney disease (Acute) Chronic heart failure with preserved ejection fraction (HFpEF) (Acute) Right heart failure (secondary to left heart failure) (Acute) Respiratory failure with hypoxia and hypercapnia (Acute) Paroxysmal atrial fibrillation (Acute) CAD (coronary artery disease) (Acute) Mitral regurgitation (Acute) MOISÉS (obstructive sleep apnea) (Acute) Morbid obesity due to excess calories (Acute) Type 2 diabetes mellitus with hyperglycemia, with long-term current use of insulin (Acute) Type 2 diabetes mellitus with diabetic polyneuropathy (Acute) Hyperlipidemia LDL goal <70 (Acute) Essential hypertension (Acute) Degenerative arthritis of knee, bilateral (Acute) Past Medical History Medical History CAD (coronary artery disease) CHF (congestive heart failure) Chronic heart failure with preserved ejection fraction (HFpEF) Chronic pancreatitis COPD (chronic obstructive pulmonary disease) COPD (chronic obstructive pulmonary disease) Degenerative arthritis of knee, bilateral Diverticulosis Dysuria Essential hypertension Fever, unknown origin Hyperlipidemia LDL goal <70 Hypertensive heart disease Infection due to Stenotrophomonas maltophilia Memory loss Morbid obesity due to excess calories Pulmonary embolism Respiratory failure with hypoxia and hypercapnia Right heart failure (secondary to left heart failure) SVT (supraventricular tachycardia) 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 Maternal Grandmother Diabetes Maternal Uncle Diabetes Maternal Aunt Diabetes Surgical History Surgical History Hx of cardiac catheterization Social History Social History Household Members: Family Housing: Apartment Alcohol intake: never Smoking Status: Never smoker Second Hand Smoke Exposure: No Advance Directives Date on File: 11/30/19 service: No Current occupational status: disabled Meds Allergies Allergy/AdvReac Type Severity Reaction Status Date / Time nitrofurantoin Allergy Intermediate SWELLING Verified 10/17/20 11:23 [From MACROBID] azithromycin [Azithromycin] Allergy Mild SWELLING Verified 10/17/20 11:23 Zithromax Allergy Unknown Swelling Uncoded 10/17/20 11:23 Active Medications: Current Medications Generic Name Dose Route Start Last Admin Trade Name Freq PRN Reason Stop Dose Admin Ascorbic Acid 1,000 mg 12/01/20 18:00 12/03/20 11:29 Ascorbic Acid 500 Mg Tablet G-TUBE Not Given Q6H ROCKY Chlorhexidine Gluconate 15 ml 11/18/20 21:00 12/03/20 14:06 Chlorhexidine Gluc Oral Rinse 15 Ml Mouthwash BUCCAL 15 ml TID ROCKY Administration Famotidine 20 mg 11/25/20 09:00 12/03/20 08:39 Famotidine/Pf 20 Mg/2 Ml Vial IVPUSH 20 mg DAILY ROCKY Administration Fentanyl 50 mcg 12/01/20 18:00 12/01/20 18:35 Fentanyl Citrate/Pf 100 Mcg/2 Ml Vial IVPUSH 50 mcg Q5M PRN Administration WOB Furosemide 40 mg 11/25/20 09:00 12/03/20 08:39 Furosemide 40 Mg/4 Ml Vial IVPUSH 40 mg BID@0900,1800 ROCKY Administration Protocol Heparin Sodium (Porcine) 5,000 unit 11/27/20 20:00 12/03/20 11:30 Heparin Sodium,Porcine 5,000 Unit/Ml Vial SUBCUT Not Given Q8H ROCKY Insulin Human Regular 100 unit in 100 mls @ 0 mls/hr 11/19/20 06:30 12/03/20 10:59 Myxredlin IVCONT 5 unit/hr .Q0M ROCKY 5 mls/hr Titration Protocol Per Protocol Propofol 1,000 mg in 100 mls @ 0 mls/hr 11/24/20 07:45 12/03/20 15:21 Diprivan IVCONT 20 mcg/kg/min .Q0M ROCKY 17.96 mls/hr Administration Protocol Per Protocol Doxycycline Hyclate 100 mg/ 250 mls @ 166.67 mls/hr 12/01/20 12:00 12/03/20 13:05 Sodium Chloride IV Infused Q12H ROCKY Infusion Fentanyl 1,000 mcg in 100 mls @ 0 mls/hr 12/01/20 18:15 12/03/20 02:02 Sublimaze/Ns IVCONT 50 mcg/hr .Q0M ROCKY 5 mls/hr Administration Protocol Per Protocol Melatonin 9 mg 12/01/20 21:00 12/02/20 20:31 Melatonin 3 Mg Tablet G-TUBE 9 mg BEDTIME ROCKY Administration Methylprednisolone Sodium Succinate 80 mg 12/01/20 18:00 12/03/20 05:49 Methylprednisolone Sod Succ 125 Mg/2 Ml Vial IVPUSH 80 mg Q12H ROCKY Administration Metoprolol Tartrate 25 mg 11/23/20 21:00 12/03/20 08:40 Metoprolol Tartrate 25 Mg Tablet PO 25 mg BID ROCKY Administration Protocol Naloxone HCl 0.2 mg 12/01/20 18:01 Naloxone Hcl 0.4 Mg/Ml Vial IVPUSH Q2M PRN Excessive sedation or RR < 8 Nystatin 1 appl 11/18/20 21:00 12/03/20 08:40 Nystatin Powder 15 Gm Bottle TOPICAL 1 appl BID [facility] Administration Protocol Propafenone HCl 150 mg 12/01/20 08:00 12/03/20 14:06 Propafenone Hcl 150 Mg Tablet PO 150 mg Q8H ROCKY Administration Sodium Chloride 3 ml 11/10/20 00:00 12/03/20 14:06 0.9 % Sodium Chloride Flush 3 Ml Syringe IVFLUSH 3 ml QSHIFT ROCKY Administration Thiamine HCl 200 mg 12/01/20 21:00 12/03/20 08:40 Thiamine Hcl 100 Mg Tablet G-TUBE 200 mg BID ROCKY Administration Vitamin D 50 mcg 12/02/20 09:00 12/03/20 08:39 Cholecalciferol (Vitamin D3) 25 Mcg Tablet G-TUBE 50 mcg DAILY ROCKY Administration Home Medications Medication Instructions Recorded Confirmed Last Taken Type Eliquis 5 mg PO BID 07/22/20 11/10/20 Unknown History Flovent HFA 1 puff INHALATION BID 07/22/20 11/10/20 Unknown History Incruse Ellipta 1 inh INHALATION DAILY 07/22/20 11/10/20 Unknown History acetaminophen 650 mg PO Q8H PRN 07/22/20 11/10/20 Unknown History albuterol sulfate 2.5 mg INHALATION Q4H PRN 07/22/20 11/10/20 Unknown History amlodipine [Norvasc] 5 mg PO DAILY 07/22/20 11/10/20 Unknown History atorvastatin 80 mg PO DAILY 07/22/20 11/10/20 Unknown History melatonin 3 mg PO BEDTIME PRN 07/22/20 11/10/20 Unknown History metoprolol tartrate 75 mg PO BID 07/22/20 11/10/20 Unknown History olanzapine [Zyprexa] 15 mg PO BEDTIME 07/22/20 11/10/20 Unknown History pantoprazole [Protonix] 20 mg PO DAILY 07/22/20 11/10/20 Unknown History potassium chloride [Klor-Con M20] 20 meq PO DAILY 07/22/20 11/10/20 Unknown History sertraline 200 mg PO DAILY 07/22/20 11/10/20 Unknown History spironolactone 50 mg PO DAILY 07/22/20 11/10/20 Unknown History acetazolamide 250 mg tablet 250 mg PO BID tab 10/17/20 11/10/20 Unknown History bumetanide 2 mg tablet 2 mg PO DAILY tab 10/17/20 11/10/20 Unknown History Exam Exam Date and Time: December 03, 2020 1556 Height,Weight and Vital Signs: Height 5 ft 6 in Weight 149.685 kg Last Vital Signs Temp 96.4 F L 12/03/20 14:00 Pulse 91 12/03/20 14:00 Resp 15 12/03/20 14:00 BP 140/54 H 12/03/20 14:00 Pulse Ox 94 12/03/20 14:00 Pertinent Lab Results Pertinent Lab Results: Laboratory Tests 11/09/20 11/09/20 11/09/20 19:43 19:57 19:57 WBC 7.4 RBC 4.84 D Hgb 12.4 D Hct 39.2 D MCV 81.0 MCH 25.6 L MCHC 31.6 RDW 15.9 Plt Count 163 MPV 9.7 Immature Gran % (Auto) 0.9 H Neut % (Auto) 86.4 H Lymph % (Auto) 8.9 L [place] % (Auto) 3.8 Eos % (Auto) 0.0 Baso % (Auto) 0.0 Lymph # (Auto) 0.7 L [place] # (Auto) 0.3 Eos # (Auto) 0.0 Baso # (Auto) 0.0 Abs Immat Gran (auto) 0.07 H Absolute Neuts (auto) 6.4 Absolute Nucleated RBC 0.000 Nucleated RBC % (auto) 0.0 Neutrophils % (Manual) Band Neutrophils % Lymphocytes % (Manual) Atypical Lymphs % (Man) Monocytes % (Manual) Eosinophils % (Manual) Basophils % (Manual) Metamyelocytes % Myelocytes % Abs Neuts (Manual) Lymphocytes # (Manual) Atyp Lymphs # (Manual) Monocytes # (Manual) Eosinophils # (Manual) Basophils # (Manual) Metamyelocytes # Myelocytes # Nucleated RBCs Toxic Vacuolation Platelet Estimate Large Platelets Plt Morphology Comment RBC Morphology Polychromasia Hypochromasia Microcytosis Ovalocytes [place] Cells Acanthocytes (Spur) Schistocytes Smear Tech's Comments VERIFIED PT 17.5 H INR 1.5 H APTT 37.8 D-Dimer 453 ABG pH ABG pCO2 ABG pO2 ABG HCO3 ABG O2 Saturation ABG Base Excess VBG pH VBG pCO2 VBG pO2 VBG HCO3 VBG O2 Saturation VBG Base Excess Oxygen Given Sodium Potassium Chloride Carbon Dioxide Anion Gap BUN Creatinine Estim Creat Clear Calc Estimated GFR POC Glucose Random Glucose Lactic Acid Calcium Phosphorus Magnesium Ferritin Total Bilirubin Direct Bilirubin AST ALT Alkaline Phosphatase Lactate Dehydrogenase Total Creatine Kinase Troponin I High Sens C-Reactive Protein B-Natriuretic Peptide Total Protein Albumin Procalcitonin TSH Free T4 Free T3 Vancomycin Trough Coronavirus (PCR) POSITIVE A COVID-19 (NELLY) COVID-19 Clin Com Influenza Type A (PCR) NEGATIVE Influenza Type B (PCR) NEGATIVE RSV RNA Qual (PCR) NEGATIVE Blood Type Antibody Screen 11/09/20 11/09/20 11/09/20 19:57 19:57 19:57 WBC RBC Hgb Hct MCV MCH MCHC RDW Plt Count MPV Immature Gran % (Auto) Neut % (Auto) Lymph % (Auto) [place] % (Auto) Eos % (Auto) Baso % (Auto) Lymph # (Auto) [place] # (Auto) Eos # (Auto) Baso # (Auto) Abs Immat Gran (auto) Absolute Neuts (auto) Absolute Nucleated RBC Nucleated RBC % (auto) Neutrophils % (Manual) Band Neutrophils % Lymphocytes % (Manual) Atypical Lymphs % (Man) Monocytes % (Manual) Eosinophils % (Manual) Basophils % (Manual) Metamyelocytes % Myelocytes % Abs Neuts (Manual) Lymphocytes # (Manual) Atyp Lymphs # (Manual) Monocytes # (Manual) Eosinophils # (Manual) Basophils # (Manual) Metamyelocytes # Myelocytes # Nucleated RBCs Toxic Vacuolation Platelet Estimate Large Platelets Plt Morphology Comment RBC Morphology Polychromasia Hypochromasia Microcytosis Ovalocytes [place] Cells Acanthocytes (Spur) Schistocytes Smear Tech's Comments PT INR APTT D-Dimer ABG pH ABG pCO2 ABG pO2 ABG HCO3 ABG O2 Saturation ABG Base Excess VBG pH 7.30 L VBG pCO2 49 VBG pO2 30 VBG HCO3 24 VBG O2 Saturation 37.0 VBG Base Excess -2.1 Oxygen Given Sodium Potassium Chloride Carbon Dioxide Anion Gap BUN Creatinine Estim Creat Clear Calc Estimated GFR POC Glucose Random Glucose Lactic Acid 1.2 Calcium Phosphorus Magnesium Ferritin Total Bilirubin Direct Bilirubin AST ALT Alkaline Phosphatase Lactate Dehydrogenase Total Creatine Kinase Troponin I High Sens 7.5 D C-Reactive Protein B-Natriuretic Peptide 187 H Total Protein Albumin Procalcitonin TSH Free T4 Free T3 Vancomycin Trough Coronavirus (PCR) COVID-19 (NELLY) COVID-19 Clin Com Influenza Type A (PCR) Influenza Type B (PCR) RSV RNA Qual (PCR) Blood Type Antibody Screen 11/09/20 11/10/20 11/10/20 20:54 00:25 06:23 WBC 5.0 RBC 4.64 Hgb 11.8 L Hct 36.5 L MCV 78.7 L MCH 25.4 L MCHC 32.3 RDW 15.9 Plt Count 156 L MPV 10.1 Immature Gran % (Auto) 1.2 H Neut % (Auto) 80.5 H Lymph % (Auto) 11.9 L [place] % (Auto) 6.4 Eos % (Auto) 0.0 Baso % (Auto) 0.0 Lymph # (Auto) 0.6 L [place] # (Auto) 0.3 Eos # (Auto) 0.0 Baso # (Auto) 0.0 Abs Immat Gran (auto) 0.06 H Absolute Neuts (auto) 4.0 Absolute Nucleated RBC 0.000 Nucleated RBC % (auto) 0.0 Neutrophils % (Manual) Band Neutrophils % Lymphocytes % (Manual) Atypical Lymphs % (Man) Monocytes % (Manual) Eosinophils % (Manual) Basophils % (Manual) Metamyelocytes % Myelocytes % Abs Neuts (Manual) Lymphocytes # (Manual) Atyp Lymphs # (Manual) Monocytes # (Manual) Eosinophils # (Manual) Basophils # (Manual) Metamyelocytes # Myelocytes # Nucleated RBCs Toxic Vacuolation Platelet Estimate Large Platelets Plt Morphology Comment RBC Morphology Polychromasia Hypochromasia Microcytosis Ovalocytes [place] Cells Acanthocytes (Spur) Schistocytes Smear Tech's Comments VERIFIED PT INR APTT D-Dimer ABG pH ABG pCO2 ABG pO2 ABG HCO3 ABG O2 Saturation ABG Base Excess VBG pH VBG pCO2 VBG pO2 VBG HCO3 VBG O2 Saturation VBG Base Excess Oxygen Given Sodium 128 L Potassium 3.5 Chloride 89 L Carbon Dioxide 24 Anion Gap 19 BUN 36 H Creatinine 1.35 Estim Creat Clear Calc 60.9 Estimated GFR 39 POC Glucose 201 H Random Glucose 169 H Lactic Acid Calcium 7.7 L D Phosphorus Magnesium Ferritin 1887 H Total Bilirubin 1.0 Direct Bilirubin 0.6 H AST 64 H ALT 31 Alkaline Phosphatase 122 H Lactate Dehydrogenase 564 H Total Creatine Kinase Troponin I High Sens C-Reactive Protein 14.44 H B-Natriuretic Peptide Total Protein 6.9 Albumin 3.8 Procalcitonin TSH Free T4 Free T3 Vancomycin Trough Coronavirus (PCR) COVID-19 (NELLY) COVID-19 Clin Com Influenza Type A (PCR) Influenza Type B (PCR) RSV RNA Qual (PCR) Blood Type Antibody Screen 11/10/20 11/10/20 11/10/20 06:23 08:23 11:48 WBC RBC Hgb Hct MCV MCH MCHC RDW Plt Count MPV Immature Gran % (Auto) Neut % (Auto) Lymph % (Auto) [place] % (Auto) Eos % (Auto) Baso % (Auto) Lymph # (Auto) [place] # (Auto) Eos # (Auto) Baso # (Auto) Abs Immat Gran (auto) Absolute Neuts (auto) Absolute Nucleated RBC Nucleated RBC % (auto) Neutrophils % (Manual) Band Neutrophils % Lymphocytes % (Manual) Atypical Lymphs % (Man) Monocytes % (Manual) Eosinophils % (Manual) Basophils % (Manual) Metamyelocytes % Myelocytes % Abs Neuts (Manual) Lymphocytes # (Manual) Atyp Lymphs # (Manual) Monocytes # (Manual) Eosinophils # (Manual) Basophils # (Manual) Metamyelocytes # Myelocytes # Nucleated RBCs Toxic Vacuolation Platelet Estimate Large Platelets Plt Morphology Comment RBC Morphology Polychromasia Hypochromasia Microcytosis Ovalocytes [place] Cells Acanthocytes (Spur) Schistocytes Smear Tech's Comments PT INR APTT D-Dimer ABG pH ABG pCO2 ABG pO2 ABG HCO3 ABG O2 Saturation ABG Base Excess VBG pH VBG pCO2 VBG pO2 VBG HCO3 VBG O2 Saturation VBG Base Excess Oxygen Given Sodium 127 L Potassium 3.9 Chloride 91 L Carbon Dioxide 22 Anion Gap 18 BUN 40 H Creatinine 1.31 Estim Creat Clear Calc 62.7 Estimated GFR 40 POC Glucose 371 H* 331 H Random Glucose 355 H* Lactic Acid Calcium 7.6 L Phosphorus Magnesium Ferritin Total Bilirubin Direct Bilirubin AST ALT Alkaline Phosphatase Lactate Dehydrogenase Total Creatine Kinase Troponin I High Sens C-Reactive Protein B-Natriuretic Peptide Total Protein Albumin Procalcitonin TSH Free T4 Free T3 Vancomycin Trough Coronavirus (PCR) COVID-19 (NELLY) COVID-19 Clin Com Influenza Type A (PCR) Influenza Type B (PCR) RSV RNA Qual (PCR) Blood Type Antibody Screen 11/10/20 11/10/20 11/11/20 16:31 20:29 05:43 WBC RBC Hgb Hct MCV MCH MCHC RDW Plt Count MPV Immature Gran % (Auto) Neut % (Auto) Lymph % (Auto) [place] % (Auto) Eos % (Auto) Baso % (Auto) Lymph # (Auto) [place] # (Auto) Eos # (Auto) Baso # (Auto) Abs Immat Gran (auto) Absolute Neuts (auto) Absolute Nucleated RBC Nucleated RBC % (auto) Neutrophils % (Manual) Band Neutrophils % Lymphocytes % (Manual) Atypical Lymphs % (Man) Monocytes % (Manual) Eosinophils % (Manual) Basophils % (Manual) Metamyelocytes % Myelocytes % Abs Neuts (Manual) Lymphocytes # (Manual) Atyp Lymphs # (Manual) Monocytes # (Manual) Eosinophils # (Manual) Basophils # (Manual) Metamyelocytes # Myelocytes # Nucleated RBCs Toxic Vacuolation Platelet Estimate Large Platelets Plt Morphology Comment RBC Morphology Polychromasia Hypochromasia Microcytosis Ovalocytes [place] Cells Acanthocytes (Spur) Schistocytes Smear Tech's Comments PT INR APTT D-Dimer ABG pH ABG pCO2 ABG pO2 ABG HCO3 ABG O2 Saturation ABG Base Excess VBG pH VBG pCO2 VBG pO2 VBG HCO3 VBG O2 Saturation VBG Base Excess Oxygen Given Sodium 131 L Potassium 4.1 Chloride 93 L Carbon Dioxide 25 Anion Gap 17 BUN 50 H Creatinine 1.34 Estim Creat Clear Calc 61.4 Estimated GFR 39 POC Glucose 323 H 312 H Random Glucose 343 H Lactic Acid Calcium 7.9 L Phosphorus Magnesium Ferritin Total Bilirubin 0.6 Direct Bilirubin 0.4 AST 55 H ALT 26 Alkaline Phosphatase 110 Lactate Dehydrogenase Total Creatine Kinase Troponin I High Sens C-Reactive Protein B-Natriuretic Peptide Total Protein 6.6 Albumin 3.5 Procalcitonin TSH Free T4 Free T3 Vancomycin Trough Coronavirus (PCR) COVID-19 (NELLY) COVID-19 Clin Com Influenza Type A (PCR) Influenza Type B (PCR) RSV RNA Qual (PCR) Blood Type Antibody Screen 11/11/20 11/11/20 11/11/20 07:38 11:13 16:16 WBC RBC Hgb Hct MCV MCH MCHC RDW Plt Count MPV Immature Gran % (Auto) Neut % (Auto) Lymph % (Auto) [place] % (Auto) Eos % (Auto) Baso % (Auto) Lymph # (Auto) [place] # (Auto) Eos # (Auto) Baso # (Auto) Abs Immat Gran (auto) Absolute Neuts (auto) Absolute Nucleated RBC Nucleated RBC % (auto) Neutrophils % (Manual) Band Neutrophils % Lymphocytes % (Manual) Atypical Lymphs % (Man) Monocytes % (Manual) Eosinophils % (Manual) Basophils % (Manual) Metamyelocytes % Myelocytes % Abs Neuts (Manual) Lymphocytes # (Manual) Atyp Lymphs # (Manual) Monocytes # (Manual) Eosinophils # (Manual) Basophils # (Manual) Metamyelocytes # Myelocytes # Nucleated RBCs Toxic Vacuolation Platelet Estimate Large Platelets Plt Morphology Comment RBC Morphology Polychromasia Hypochromasia Microcytosis Ovalocytes [place] Cells Acanthocytes (Spur) Schistocytes Smear Tech's Comments PT INR APTT D-Dimer ABG pH ABG pCO2 ABG pO2 ABG HCO3 ABG O2 Saturation ABG Base Excess VBG pH VBG pCO2 VBG pO2 VBG HCO3 VBG O2 Saturation VBG Base Excess Oxygen Given Sodium Potassium Chloride Carbon Dioxide Anion Gap BUN Creatinine Estim Creat Clear Calc Estimated GFR POC Glucose 304 H 326 H 342 H Random Glucose Lactic Acid Calcium Phosphorus Magnesium Ferritin Total Bilirubin Direct Bilirubin AST ALT Alkaline Phosphatase Lactate Dehydrogenase Total Creatine Kinase Troponin I High Sens C-Reactive Protein B-Natriuretic Peptide Total Protein Albumin Procalcitonin TSH Free T4 Free T3 Vancomycin Trough Coronavirus (PCR) COVID-19 (NELLY) COVID-19 Clin Com Influenza Type A (PCR) Influenza Type B (PCR) RSV RNA Qual (PCR) Blood Type Antibody Screen 11/11/20 11/12/20 11/12/20 20:10 05:44 07:24 WBC RBC Hgb Hct MCV MCH MCHC RDW Plt Count MPV Immature Gran % (Auto) Neut % (Auto) Lymph % (Auto) [place] % (Auto) Eos % (Auto) Baso % (Auto) Lymph # (Auto) [place] # (Auto) Eos # (Auto) Baso # (Auto) Abs Immat Gran (auto) Absolute Neuts (auto) Absolute Nucleated RBC Nucleated RBC % (auto) Neutrophils % (Manual) Band Neutrophils % Lymphocytes % (Manual) Atypical Lymphs % (Man) Monocytes % (Manual) Eosinophils % (Manual) Basophils % (Manual) Metamyelocytes % Myelocytes % Abs Neuts (Manual) Lymphocytes # (Manual) Atyp Lymphs # (Manual) Monocytes # (Manual) Eosinophils # (Manual) Basophils # (Manual) Metamyelocytes # Myelocytes # Nucleated RBCs Toxic Vacuolation Platelet Estimate Large Platelets Plt Morphology Comment RBC Morphology Polychromasia Hypochromasia Microcytosis Ovalocytes [place] Cells Acanthocytes (Spur) Schistocytes Smear Tech's Comments PT INR APTT D-Dimer ABG pH ABG pCO2 ABG pO2 ABG HCO3 ABG O2 Saturation ABG Base Excess VBG pH VBG pCO2 VBG pO2 VBG HCO3 VBG O2 Saturation VBG Base Excess Oxygen Given Sodium 133 L Potassium 4.3 Chloride 94 L Carbon Dioxide 28 Anion Gap 15 BUN 47 H Creatinine 1.24 Estim Creat Clear Calc 66.3 Estimated GFR 43 POC Glucose 362 H* 321 H Random Glucose 393 H* Lactic Acid Calcium 8.7 D Phosphorus Magnesium Ferritin Total Bilirubin 0.6 Direct Bilirubin 0.4 AST 55 H ALT 31 Alkaline Phosphatase 139 H D Lactate Dehydrogenase Total Creatine Kinase Troponin I High Sens C-Reactive Protein B-Natriuretic Peptide Total Protein 7.2 Albumin 3.8 Procalcitonin TSH Free T4 Free T3 Vancomycin Trough Coronavirus (PCR) COVID-19 (NELLY) COVID-19 Clin Com Influenza Type A (PCR) Influenza Type B (PCR) RSV RNA Qual (PCR) Blood Type Antibody Screen 11/12/20 11/12/20 11/12/20 08:57 11:10 16:21 WBC RBC Hgb Hct MCV MCH MCHC RDW Plt Count MPV Immature Gran % (Auto) Neut % (Auto) Lymph % (Auto) [place] % (Auto) Eos % (Auto) Baso % (Auto) Lymph # (Auto) [place] # (Auto) Eos # (Auto) Baso # (Auto) Abs Immat Gran (auto) Absolute Neuts (auto) Absolute Nucleated RBC Nucleated RBC % (auto) Neutrophils % (Manual) Band Neutrophils % Lymphocytes % (Manual) Atypical Lymphs % (Man) Monocytes % (Manual) Eosinophils % (Manual) Basophils % (Manual) Metamyelocytes % Myelocytes % Abs Neuts (Manual) Lymphocytes # (Manual) Atyp Lymphs # (Manual) Monocytes # (Manual) Eosinophils # (Manual) Basophils # (Manual) Metamyelocytes # Myelocytes # Nucleated RBCs Toxic Vacuolation Platelet Estimate Large Platelets Plt Morphology Comment RBC Morphology Polychromasia Hypochromasia Microcytosis Ovalocytes [place] Cells Acanthocytes (Spur) Schistocytes Smear Tech's Comments PT INR APTT D-Dimer ABG pH ABG pCO2 ABG pO2 ABG HCO3 ABG O2 Saturation ABG Base Excess VBG pH VBG pCO2 VBG pO2 VBG HCO3 VBG O2 Saturation VBG Base Excess Oxygen Given Sodium Potassium Chloride Carbon Dioxide Anion Gap BUN Creatinine Estim Creat Clear Calc Estimated GFR POC Glucose 347 H 265 H Random Glucose Lactic Acid Calcium Phosphorus Magnesium Ferritin Total Bilirubin Direct Bilirubin AST ALT Alkaline Phosphatase Lactate Dehydrogenase Total Creatine Kinase Troponin I High Sens C-Reactive Protein B-Natriuretic Peptide Total Protein Albumin Procalcitonin TSH Free T4 Free T3 Vancomycin Trough 4.4 L Coronavirus (PCR) COVID-19 (NELLY) COVID-19 Clin Com Influenza Type A (PCR) Influenza Type B (PCR) RSV RNA Qual (PCR) Blood Type Antibody Screen 11/12/20 11/13/20 11/13/20 21:07 05:38 07:19 WBC RBC Hgb Hct MCV MCH MCHC RDW Plt Count MPV Immature Gran % (Auto) Neut % (Auto) Lymph % (Auto) [place] % (Auto) Eos % (Auto) Baso % (Auto) Lymph # (Auto) [place] # (Auto) Eos # (Auto) Baso # (Auto) Abs Immat Gran (auto) Absolute Neuts (auto) Absolute Nucleated RBC Nucleated RBC % (auto) Neutrophils % (Manual) Band Neutrophils % Lymphocytes % (Manual) Atypical Lymphs % (Man) Monocytes % (Manual) Eosinophils % (Manual) Basophils % (Manual) Metamyelocytes % Myelocytes % Abs Neuts (Manual) Lymphocytes # (Manual) Atyp Lymphs # (Manual) Monocytes # (Manual) Eosinophils # (Manual) Basophils # (Manual) Metamyelocytes # Myelocytes # Nucleated RBCs Toxic Vacuolation Platelet Estimate Large Platelets Plt Morphology Comment RBC Morphology Polychromasia Hypochromasia Microcytosis Ovalocytes [place] Cells Acanthocytes (Spur) Schistocytes Smear Tech's Comments PT INR APTT D-Dimer ABG pH ABG pCO2 ABG pO2 ABG HCO3 ABG O2 Saturation ABG Base Excess VBG pH VBG pCO2 VBG pO2 VBG HCO3 VBG O2 Saturation VBG Base Excess Oxygen Given Sodium 133 L Potassium 3.8 Chloride 97 Carbon Dioxide 25 Anion Gap 15 BUN 42 H Creatinine 0.98 Estim Creat Clear Calc 83.9 Estimated GFR 57 POC Glucose 322 H 255 H Random Glucose 287 H Lactic Acid Calcium 8.4 Phosphorus Magnesium Ferritin Total Bilirubin 0.8 Direct Bilirubin 0.5 AST 40 H ALT 27 Alkaline Phosphatase 139 H Lactate Dehydrogenase Total Creatine Kinase Troponin I High Sens C-Reactive Protein B-Natriuretic Peptide Total Protein 6.5 Albumin 3.4 L Procalcitonin TSH Free T4 Free T3 Vancomycin Trough Coronavirus (PCR) COVID-19 (NELLY) COVID-19 Clin Com Influenza Type A (PCR) Influenza Type B (PCR) RSV RNA Qual (PCR) Blood Type Antibody Screen 11/13/20 11/13/20 11/13/20 11:46 15:24 15:58 WBC RBC Hgb Hct MCV MCH MCHC RDW Plt Count MPV Immature Gran % (Auto) Neut % (Auto) Lymph % (Auto) [place] % (Auto) Eos % (Auto) Baso % (Auto) Lymph # (Auto) [place] # (Auto) Eos # (Auto) Baso # (Auto) Abs Immat Gran (auto) Absolute Neuts (auto) Absolute Nucleated RBC Nucleated RBC % (auto) Neutrophils % (Manual) Band Neutrophils % Lymphocytes % (Manual) Atypical Lymphs % (Man) Monocytes % (Manual) Eosinophils % (Manual) Basophils % (Manual) Metamyelocytes % Myelocytes % Abs Neuts (Manual) Lymphocytes # (Manual) Atyp Lymphs # (Manual) Monocytes # (Manual) Eosinophils # (Manual) Basophils # (Manual) Metamyelocytes # Myelocytes # Nucleated RBCs Toxic Vacuolation Platelet Estimate Large Platelets Plt Morphology Comment RBC Morphology Polychromasia Hypochromasia Microcytosis Ovalocytes [place] Cells Acanthocytes (Spur) Schistocytes Smear Tech's Comments PT INR APTT D-Dimer ABG pH ABG pCO2 ABG pO2 ABG HCO3 ABG O2 Saturation ABG Base Excess VBG pH VBG pCO2 VBG pO2 VBG HCO3 VBG O2 Saturation VBG Base Excess Oxygen Given Sodium Potassium Chloride Carbon Dioxide Anion Gap BUN Creatinine Estim Creat Clear Calc Estimated GFR POC Glucose 285 H 226 H Random Glucose Lactic Acid Calcium Phosphorus Magnesium Ferritin Total Bilirubin Direct Bilirubin AST ALT Alkaline Phosphatase Lactate Dehydrogenase Total Creatine Kinase Troponin I High Sens C-Reactive Protein B-Natriuretic Peptide Total Protein Albumin Procalcitonin TSH Free T4 Free T3 Vancomycin Trough Coronavirus (PCR) COVID-19 (NELLY) COVID-19 Clin Com Influenza Type A (PCR) Influenza Type B (PCR) RSV RNA Qual (PCR) Blood Type A Positive Antibody Screen NEGATIVE 11/13/20 11/13/20 11/14/20 18:33 20:25 05:45 WBC RBC Hgb Hct MCV MCH MCHC RDW Plt Count MPV Immature Gran % (Auto) Neut % (Auto) Lymph % (Auto) [place] % (Auto) Eos % (Auto) Baso % (Auto) Lymph # (Auto) [place] # (Auto) Eos # (Auto) Baso # (Auto) Abs Immat Gran (auto) Absolute Neuts (auto) Absolute Nucleated RBC Nucleated RBC % (auto) Neutrophils % (Manual) Band Neutrophils % Lymphocytes % (Manual) Atypical Lymphs % (Man) Monocytes % (Manual) Eosinophils % (Manual) Basophils % (Manual) Metamyelocytes % Myelocytes % Abs Neuts (Manual) Lymphocytes # (Manual) Atyp Lymphs # (Manual) Monocytes # (Manual) Eosinophils # (Manual) Basophils # (Manual) Metamyelocytes # Myelocytes # Nucleated RBCs Toxic Vacuolation Platelet Estimate Large Platelets Plt Morphology Comment RBC Morphology Polychromasia Hypochromasia Microcytosis Ovalocytes [place] Cells Acanthocytes (Spur) Schistocytes Smear Tech's Comments PT INR APTT D-Dimer ABG pH ABG pCO2 ABG pO2 ABG HCO3 ABG O2 Saturation ABG Base Excess VBG pH VBG pCO2 VBG pO2 VBG HCO3 VBG O2 Saturation VBG Base Excess Oxygen Given Sodium 134 L Potassium 4.1 Chloride 94 L Carbon Dioxide 27 Anion Gap 17 BUN 51 H Creatinine 1.17 Estim Creat Clear Calc 70.3 Estimated GFR 46 POC Glucose 352 H* Random Glucose 324 H Lactic Acid Calcium 8.7 Phosphorus Magnesium Ferritin Total Bilirubin Direct Bilirubin AST ALT Alkaline Phosphatase Lactate Dehydrogenase Total Creatine Kinase Troponin I High Sens C-Reactive Protein B-Natriuretic Peptide 92 Total Protein Albumin Procalcitonin TSH Free T4 Free T3 Vancomycin Trough Coronavirus (PCR) COVID-19 (NELLY) COVID-19 Clin Com Influenza Type A (PCR) Influenza Type B (PCR) RSV RNA Qual (PCR) Blood Type Antibody Screen 11/14/20 11/14/20 11/14/20 07:41 11:21 16:03 WBC RBC Hgb Hct MCV MCH MCHC RDW Plt Count MPV Immature Gran % (Auto) Neut % (Auto) Lymph % (Auto) [place] % (Auto) Eos % (Auto) Baso % (Auto) Lymph # (Auto) [place] # (Auto) Eos # (Auto) Baso # (Auto) Abs Immat Gran (auto) Absolute Neuts (auto) Absolute Nucleated RBC Nucleated RBC % (auto) Neutrophils % (Manual) Band Neutrophils % Lymphocytes % (Manual) Atypical Lymphs % (Man) Monocytes % (Manual) Eosinophils % (Manual) Basophils % (Manual) Metamyelocytes % Myelocytes % Abs Neuts (Manual) Lymphocytes # (Manual) Atyp Lymphs # (Manual) Monocytes # (Manual) Eosinophils # (Manual) Basophils # (Manual) Metamyelocytes # Myelocytes # Nucleated RBCs Toxic Vacuolation Platelet Estimate Large Platelets Plt Morphology Comment RBC Morphology Polychromasia Hypochromasia Microcytosis Ovalocytes [place] Cells Acanthocytes (Spur) Schistocytes Smear Tech's Comments PT INR APTT D-Dimer ABG pH ABG pCO2 ABG pO2 ABG HCO3 ABG O2 Saturation ABG Base Excess VBG pH VBG pCO2 VBG pO2 VBG HCO3 VBG O2 Saturation VBG Base Excess Oxygen Given Sodium Potassium Chloride Carbon Dioxide Anion Gap BUN Creatinine Estim Creat Clear Calc Estimated GFR POC Glucose 298 H 334 H 316 H Random Glucose Lactic Acid Calcium Phosphorus Magnesium Ferritin Total Bilirubin Direct Bilirubin AST ALT Alkaline Phosphatase Lactate Dehydrogenase Total Creatine Kinase Troponin I High Sens C-Reactive Protein B-Natriuretic Peptide Total Protein Albumin Procalcitonin TSH Free T4 Free T3 Vancomycin Trough Coronavirus (PCR) COVID-19 (NELLY) COVID-19 Clin Com Influenza Type A (PCR) Influenza Type B (PCR) RSV RNA Qual (PCR) Blood Type Antibody Screen 11/14/20 11/15/20 11/15/20 19:29 07:15 10:01 WBC 12.2 H RBC 5.26 Hgb 13.5 Hct 41.9 MCV 79.7 L MCH 25.7 L MCHC 32.2 RDW 16.4 H Plt Count 185 MPV 9.5 Immature Gran % (Auto) 1.4 H Neut % (Auto) 90.1 H Lymph % (Auto) 5.7 L [place] % (Auto) 1.4 L Eos % (Auto) 1.3 Baso % (Auto) 0.1 Lymph # (Auto) 0.7 L [place] # (Auto) 0.2 Eos # (Auto) 0.2 Baso # (Auto) 0.0 Abs Immat Gran (auto) 0.17 H Absolute Neuts (auto) 11.0 H Absolute Nucleated RBC 0.000 Nucleated RBC % (auto) 0.0 Neutrophils % (Manual) Band Neutrophils % Lymphocytes % (Manual) Atypical Lymphs % (Man) Monocytes % (Manual) Eosinophils % (Manual) Basophils % (Manual) Metamyelocytes % Myelocytes % Abs Neuts (Manual) Lymphocytes # (Manual) Atyp Lymphs # (Manual) Monocytes # (Manual) Eosinophils # (Manual) Basophils # (Manual) Metamyelocytes # Myelocytes # Nucleated RBCs Toxic Vacuolation Platelet Estimate Large Platelets Plt Morphology Comment RBC Morphology Polychromasia Hypochromasia Microcytosis Ovalocytes [place] Cells Acanthocytes (Spur) Schistocytes Smear Tech's Comments VERIFIED PT INR APTT D-Dimer ABG pH ABG pCO2 ABG pO2 ABG HCO3 ABG O2 Saturation ABG Base Excess VBG pH VBG pCO2 VBG pO2 VBG HCO3 VBG O2 Saturation VBG Base Excess Oxygen Given Sodium Potassium Chloride Carbon Dioxide Anion Gap BUN Creatinine Estim Creat Clear Calc Estimated GFR POC Glucose 263 H 197 H Random Glucose Lactic Acid Calcium Phosphorus Magnesium Ferritin Total Bilirubin Direct Bilirubin AST ALT Alkaline Phosphatase Lactate Dehydrogenase Total Creatine Kinase Troponin I High Sens C-Reactive Protein B-Natriuretic Peptide Total Protein Albumin Procalcitonin TSH Free T4 Free T3 Vancomycin Trough Coronavirus (PCR) COVID-19 (NELLY) COVID-19 Clin Com Influenza Type A (PCR) Influenza Type B (PCR) RSV RNA Qual (PCR) Blood Type Antibody Screen 11/15/20 11/15/20 11/15/20 10:01 10:01 10:53 WBC RBC Hgb Hct MCV MCH MCHC RDW Plt Count MPV Immature Gran % (Auto) Neut % (Auto) Lymph % (Auto) [place] % (Auto) Eos % (Auto) Baso % (Auto) Lymph # (Auto) [place] # (Auto) Eos # (Auto) Baso # (Auto) Abs Immat Gran (auto) Absolute Neuts (auto) Absolute Nucleated RBC Nucleated RBC % (auto) Neutrophils % (Manual) Band Neutrophils % Lymphocytes % (Manual) Atypical Lymphs % (Man) Monocytes % (Manual) Eosinophils % (Manual) Basophils % (Manual) Metamyelocytes % Myelocytes % Abs Neuts (Manual) Lymphocytes # (Manual) Atyp Lymphs # (Manual) Monocytes # (Manual) Eosinophils # (Manual) Basophils # (Manual) Metamyelocytes # Myelocytes # Nucleated RBCs Toxic Vacuolation Platelet Estimate Large Platelets Plt Morphology Comment RBC Morphology Polychromasia Hypochromasia Microcytosis Ovalocytes [place] Cells Acanthocytes (Spur) Schistocytes Smear Tech's Comments PT INR APTT D-Dimer ABG pH ABG pCO2 ABG pO2 ABG HCO3 ABG O2 Saturation ABG Base Excess VBG pH VBG pCO2 VBG pO2 VBG HCO3 VBG O2 Saturation VBG Base Excess Oxygen Given Sodium 133 L Potassium 4.4 Chloride 96 Carbon Dioxide 23 Anion Gap 18 BUN 52 H Creatinine 1.05 Estim Creat Clear Calc 78.3 Estimated GFR 52 POC Glucose 196 H Random Glucose 208 H D Lactic Acid Calcium 8.8 Phosphorus Magnesium 1.8 Ferritin Total Bilirubin Direct Bilirubin AST ALT Alkaline Phosphatase Lactate Dehydrogenase Total Creatine Kinase Troponin I High Sens 6.7 C-Reactive Protein B-Natriuretic Peptide 69 Total Protein Albumin Procalcitonin TSH Free T4 Free T3 Vancomycin Trough Coronavirus (PCR) COVID-19 (NELLY) COVID-19 Clin Com Influenza Type A (PCR) Influenza Type B (PCR) RSV RNA Qual (PCR) Blood Type Antibody Screen 11/15/20 11/15/20 11/16/20 15:58 19:34 07:04 WBC RBC Hgb Hct MCV MCH MCHC RDW Plt Count MPV Immature Gran % (Auto) Neut % (Auto) Lymph % (Auto) [place] % (Auto) Eos % (Auto) Baso % (Auto) Lymph # (Auto) [place] # (Auto) Eos # (Auto) Baso # (Auto) Abs Immat Gran (auto) Absolute Neuts (auto) Absolute Nucleated RBC Nucleated RBC % (auto) Neutrophils % (Manual) Band Neutrophils % Lymphocytes % (Manual) Atypical Lymphs % (Man) Monocytes % (Manual) Eosinophils % (Manual) Basophils % (Manual) Metamyelocytes % Myelocytes % Abs Neuts (Manual) Lymphocytes # (Manual) Atyp Lymphs # (Manual) Monocytes # (Manual) Eosinophils # (Manual) Basophils # (Manual) Metamyelocytes # Myelocytes # Nucleated RBCs Toxic Vacuolation Platelet Estimate Large Platelets Plt Morphology Comment RBC Morphology Polychromasia Hypochromasia Microcytosis Ovalocytes [place] Cells Acanthocytes (Spur) Schistocytes Smear Tech's Comments PT INR APTT D-Dimer ABG pH ABG pCO2 ABG pO2 ABG HCO3 ABG O2 Saturation ABG Base Excess VBG pH VBG pCO2 VBG pO2 VBG HCO3 VBG O2 Saturation VBG Base Excess Oxygen Given Sodium Potassium Chloride Carbon Dioxide Anion Gap BUN Creatinine Estim Creat Clear Calc Estimated GFR POC Glucose 155 H 236 H 246 H Random Glucose Lactic Acid Calcium Phosphorus Magnesium Ferritin Total Bilirubin Direct Bilirubin AST ALT Alkaline Phosphatase Lactate Dehydrogenase Total Creatine Kinase Troponin I High Sens C-Reactive Protein B-Natriuretic Peptide Total Protein Albumin Procalcitonin TSH Free T4 Free T3 Vancomycin Trough Coronavirus (PCR) COVID-19 (NELLY) COVID-19 Clin Com Influenza Type A (PCR) Influenza Type B (PCR) RSV RNA Qual (PCR) Blood Type Antibody Screen 11/16/20 11/16/20 11/16/20 11:00 16:02 19:49 WBC RBC Hgb Hct MCV MCH MCHC RDW Plt Count MPV Immature Gran % (Auto) Neut % (Auto) Lymph % (Auto) [place] % (Auto) Eos % (Auto) Baso % (Auto) Lymph # (Auto) [place] # (Auto) Eos # (Auto) Baso # (Auto) Abs Immat Gran (auto) Absolute Neuts (auto) Absolute Nucleated RBC Nucleated RBC % (auto) Neutrophils % (Manual) Band Neutrophils % Lymphocytes % (Manual) Atypical Lymphs % (Man) Monocytes % (Manual) Eosinophils % (Manual) Basophils % (Manual) Metamyelocytes % Myelocytes % Abs Neuts (Manual) Lymphocytes # (Manual) Atyp Lymphs # (Manual) Monocytes # (Manual) Eosinophils # (Manual) Basophils # (Manual) Metamyelocytes # Myelocytes # Nucleated RBCs Toxic Vacuolation Platelet Estimate Large Platelets Plt Morphology Comment RBC Morphology Polychromasia Hypochromasia Microcytosis Ovalocytes [place] Cells Acanthocytes (Spur) Schistocytes Smear Tech's Comments PT INR APTT D-Dimer ABG pH ABG pCO2 ABG pO2 ABG HCO3 ABG O2 Saturation ABG Base Excess VBG pH VBG pCO2 VBG pO2 VBG HCO3 VBG O2 Saturation VBG Base Excess Oxygen Given Sodium Potassium Chloride Carbon Dioxide Anion Gap BUN Creatinine Estim Creat Clear Calc Estimated GFR POC Glucose 282 H 308 H 357 H* Random Glucose Lactic Acid Calcium Phosphorus Magnesium Ferritin Total Bilirubin Direct Bilirubin AST ALT Alkaline Phosphatase Lactate Dehydrogenase Total Creatine Kinase Troponin I High Sens C-Reactive Protein B-Natriuretic Peptide Total Protein Albumin Procalcitonin TSH Free T4 Free T3 Vancomycin Trough Coronavirus (PCR) COVID-19 (NELLY) COVID-19 Clin Com Influenza Type A (PCR) Influenza Type B (PCR) RSV RNA Qual (PCR) Blood Type Antibody Screen 11/17/20 11/17/20 11/17/20 07:34 11:34 17:12 WBC RBC Hgb Hct MCV MCH MCHC RDW Plt Count MPV Immature Gran % (Auto) Neut % (Auto) Lymph % (Auto) [place] % (Auto) Eos % (Auto) Baso % (Auto) Lymph # (Auto) [place] # (Auto) Eos # (Auto) Baso # (Auto) Abs Immat Gran (auto) Absolute Neuts (auto) Absolute Nucleated RBC Nucleated RBC % (auto) Neutrophils % (Manual) Band Neutrophils % Lymphocytes % (Manual) Atypical Lymphs % (Man) Monocytes % (Manual) Eosinophils % (Manual) Basophils % (Manual) Metamyelocytes % Myelocytes % Abs Neuts (Manual) Lymphocytes # (Manual) Atyp Lymphs # (Manual) Monocytes # (Manual) Eosinophils # (Manual) Basophils # (Manual) Metamyelocytes # Myelocytes # Nucleated RBCs Toxic Vacuolation Platelet Estimate Large Platelets Plt Morphology Comment RBC Morphology Polychromasia Hypochromasia Microcytosis Ovalocytes [place] Cells Acanthocytes (Spur) Schistocytes Smear Tech's Comments PT INR APTT D-Dimer ABG pH ABG pCO2 ABG pO2 ABG HCO3 ABG O2 Saturation ABG Base Excess VBG pH VBG pCO2 VBG pO2 VBG HCO3 VBG O2 Saturation VBG Base Excess Oxygen Given Sodium Potassium Chloride Carbon Dioxide Anion Gap BUN Creatinine Estim Creat Clear Calc Estimated GFR POC Glucose 208 H 256 H 301 H Random Glucose Lactic Acid Calcium Phosphorus Magnesium Ferritin Total Bilirubin Direct Bilirubin AST ALT Alkaline Phosphatase Lactate Dehydrogenase Total Creatine Kinase Troponin I High Sens C-Reactive Protein B-Natriuretic Peptide Total Protein Albumin Procalcitonin TSH Free T4 Free T3 Vancomycin Trough Coronavirus (PCR) COVID-19 (NELLY) COVID-19 Clin Com Influenza Type A (PCR) Influenza Type B (PCR) RSV RNA Qual (PCR) Blood Type Antibody Screen 11/17/20 11/18/20 11/18/20 20:30 07:36 09:15 WBC RBC Hgb Hct MCV MCH MCHC RDW Plt Count MPV Immature Gran % (Auto) Neut % (Auto) Lymph % (Auto) [place] % (Auto) Eos % (Auto) Baso % (Auto) Lymph # (Auto) [place] # (Auto) Eos # (Auto) Baso # (Auto) Abs Immat Gran (auto) Absolute Neuts (auto) Absolute Nucleated RBC Nucleated RBC % (auto) Neutrophils % (Manual) Band Neutrophils % Lymphocytes % (Manual) Atypical Lymphs % (Man) Monocytes % (Manual) Eosinophils % (Manual) Basophils % (Manual) Metamyelocytes % Myelocytes % Abs Neuts (Manual) Lymphocytes # (Manual) Atyp Lymphs # (Manual) Monocytes # (Manual) Eosinophils # (Manual) Basophils # (Manual) Metamyelocytes # Myelocytes # Nucleated RBCs Toxic Vacuolation Platelet Estimate Large Platelets Plt Morphology Comment RBC Morphology Polychromasia Hypochromasia Microcytosis Ovalocytes [place] Cells Acanthocytes (Spur) Schistocytes Smear Tech's Comments PT INR APTT D-Dimer ABG pH 7.38 ABG pCO2 41 ABG pO2 53 L ABG HCO3 24 ABG O2 Saturation 80.0 ABG Base Excess -0.6 VBG pH VBG pCO2 VBG pO2 VBG HCO3 VBG O2 Saturation VBG Base Excess Oxygen Given 100% Sodium Potassium Chloride Carbon Dioxide Anion Gap BUN Creatinine Estim Creat Clear Calc Estimated GFR POC Glucose 306 H 207 H Random Glucose Lactic Acid Calcium Phosphorus Magnesium Ferritin Total Bilirubin Direct Bilirubin AST ALT Alkaline Phosphatase Lactate Dehydrogenase Total Creatine Kinase Troponin I High Sens C-Reactive Protein B-Natriuretic Peptide Total Protein Albumin Procalcitonin TSH Free T4 Free T3 Vancomycin Trough Coronavirus (PCR) COVID-19 (NELLY) COVID-19 Clin Com Influenza Type A (PCR) Influenza Type B (PCR) RSV RNA Qual (PCR) Blood Type Antibody Screen 11/18/20 11/18/20 11/18/20 12:12 15:40 15:40 WBC 11.8 H RBC 4.83 Hgb 12.4 Hct 38.6 MCV 79.9 L MCH 25.7 L MCHC 32.1 RDW 16.4 H Plt Count 149 L MPV 9.5 Immature Gran % (Auto) 1.9 H Neut % (Auto) 93.5 H Lymph % (Auto) 2.3 L [place] % (Auto) 2.0 Eos % (Auto) 0.2 Baso % (Auto) 0.1 Lymph # (Auto) 0.3 L [place] # (Auto) 0.2 Eos # (Auto) 0.0 Baso # (Auto) 0.0 Abs Immat Gran (auto) 0.23 H Absolute Neuts (auto) 11.1 H Absolute Nucleated RBC 0.000 Nucleated RBC % (auto) 0.0 Neutrophils % (Manual) Band Neutrophils % Lymphocytes % (Manual) Atypical Lymphs % (Man) Monocytes % (Manual) Eosinophils % (Manual) Basophils % (Manual) Metamyelocytes % Myelocytes % Abs Neuts (Manual) Lymphocytes # (Manual) Atyp Lymphs # (Manual) Monocytes # (Manual) Eosinophils # (Manual) Basophils # (Manual) Metamyelocytes # Myelocytes # Nucleated RBCs Toxic Vacuolation Platelet Estimate Large Platelets Plt Morphology Comment RBC Morphology Polychromasia Hypochromasia Microcytosis Ovalocytes [place] Cells Acanthocytes (Spur) Schistocytes Smear Tech's Comments VERIFIED PT INR APTT D-Dimer ABG pH ABG pCO2 ABG pO2 ABG HCO3 ABG O2 Saturation ABG Base Excess VBG pH VBG pCO2 VBG pO2 VBG HCO3 VBG O2 Saturation VBG Base Excess Oxygen Given Sodium 134 L Potassium 5.7 H D Chloride 97 Carbon Dioxide 25 Anion Gap 18 BUN 70 H Creatinine 1.34 Estim Creat Clear Calc 61.4 Estimated GFR 39 POC Glucose 304 H Random Glucose 309 H D Lactic Acid Calcium 8.6 Phosphorus 4.3 Magnesium 2.3 Ferritin Total Bilirubin 1.3 H Direct Bilirubin AST 45 H ALT 23 Alkaline Phosphatase 140 H Lactate Dehydrogenase 599 H Total Creatine Kinase Troponin I High Sens C-Reactive Protein 14.24 H B-Natriuretic Peptide Total Protein 6.8 Albumin 2.9 L Procalcitonin TSH Free T4 Free T3 Vancomycin Trough Coronavirus (PCR) COVID-19 (NELLY) COVID-19 Clin Com Influenza Type A (PCR) Influenza Type B (PCR) RSV RNA Qual (PCR) Blood Type Antibody Screen 11/18/20 11/18/20 11/18/20 15:40 15:40 15:40 WBC RBC Hgb Hct MCV MCH MCHC RDW Plt Count MPV Immature Gran % (Auto) Neut % (Auto) Lymph % (Auto) [place] % (Auto) Eos % (Auto) Baso % (Auto) Lymph # (Auto) [place] # (Auto) Eos # (Auto) Baso # (Auto) Abs Immat Gran (auto) Absolute Neuts (auto) Absolute Nucleated RBC Nucleated RBC % (auto) Neutrophils % (Manual) Band Neutrophils % Lymphocytes % (Manual) Atypical Lymphs % (Man) Monocytes % (Manual) Eosinophils % (Manual) Basophils % (Manual) Metamyelocytes % Myelocytes % Abs Neuts (Manual) Lymphocytes # (Manual) Atyp Lymphs # (Manual) Monocytes # (Manual) Eosinophils # (Manual) Basophils # (Manual) Metamyelocytes # Myelocytes # Nucleated RBCs Toxic Vacuolation Platelet Estimate Large Platelets Plt Morphology Comment RBC Morphology Polychromasia Hypochromasia Microcytosis Ovalocytes [place] Cells Acanthocytes (Spur) Schistocytes Smear Tech's Comments PT INR APTT D-Dimer 4295 ABG pH ABG pCO2 ABG pO2 ABG HCO3 ABG O2 Saturation ABG Base Excess VBG pH 7.35 VBG pCO2 49 VBG pO2 52 VBG HCO3 28 VBG O2 Saturation 83.0 VBG Base Excess 2.0 Oxygen Given Sodium Potassium Chloride Carbon Dioxide Anion Gap BUN Creatinine Estim Creat Clear Calc Estimated GFR POC Glucose Random Glucose 308 H Lactic Acid Calcium Phosphorus Magnesium Ferritin Total Bilirubin Direct Bilirubin AST ALT Alkaline Phosphatase Lactate Dehydrogenase Total Creatine Kinase 124 Troponin I High Sens C-Reactive Protein B-Natriuretic Peptide Total Protein Albumin Procalcitonin TSH Free T4 Free T3 Vancomycin Trough Coronavirus (PCR) COVID-19 (NELLY) COVID-19 Clin Com Influenza Type A (PCR) Influenza Type B (PCR) RSV RNA Qual (PCR) Blood Type Antibody Screen 11/18/20 11/18/20 11/18/20 15:40 15:51 23:39 WBC RBC Hgb Hct MCV MCH MCHC RDW Plt Count MPV Immature Gran % (Auto) Neut % (Auto) Lymph % (Auto) [place] % (Auto) Eos % (Auto) Baso % (Auto) Lymph # (Auto) [place] # (Auto) Eos # (Auto) Baso # (Auto) Abs Immat Gran (auto) Absolute Neuts (auto) Absolute Nucleated RBC Nucleated RBC % (auto) Neutrophils % (Manual) Band Neutrophils % Lymphocytes % (Manual) Atypical Lymphs % (Man) Monocytes % (Manual) Eosinophils % (Manual) Basophils % (Manual) Metamyelocytes % Myelocytes % Abs Neuts (Manual) Lymphocytes # (Manual) Atyp Lymphs # (Manual) Monocytes # (Manual) Eosinophils # (Manual) Basophils # (Manual) Metamyelocytes # Myelocytes # Nucleated RBCs Toxic Vacuolation Platelet Estimate Large Platelets Plt Morphology Comment RBC Morphology Polychromasia Hypochromasia Microcytosis Ovalocytes [place] Cells Acanthocytes (Spur) Schistocytes Smear Tech's Comments PT INR APTT D-Dimer ABG pH ABG pCO2 ABG pO2 ABG HCO3 ABG O2 Saturation ABG Base Excess VBG pH VBG pCO2 VBG pO2 VBG HCO3 VBG O2 Saturation VBG Base Excess Oxygen Given Sodium Potassium Chloride Carbon Dioxide Anion Gap BUN Creatinine Estim Creat Clear Calc Estimated GFR POC Glucose 267 H 336 H Random Glucose Lactic Acid Calcium Phosphorus Magnesium Ferritin Total Bilirubin Direct Bilirubin AST ALT Alkaline Phosphatase Lactate Dehydrogenase Total Creatine Kinase Troponin I High Sens C-Reactive Protein B-Natriuretic Peptide Total Protein Albumin Procalcitonin 0.31 TSH Free T4 Free T3 Vancomycin Trough Coronavirus (PCR) COVID-19 (NELLY) COVID-19 Clin Com Influenza Type A (PCR) Influenza Type B (PCR) RSV RNA Qual (PCR) Blood Type Antibody Screen 11/19/20 11/19/20 11/19/20 05:09 05:20 05:20 WBC RBC Hgb Hct MCV MCH MCHC RDW Plt Count MPV Immature Gran % (Auto) Neut % (Auto) Lymph % (Auto) [place] % (Auto) Eos % (Auto) Baso % (Auto) Lymph # (Auto) [place] # (Auto) Eos # (Auto) Baso # (Auto) Abs Immat Gran (auto) Absolute Neuts (auto) Absolute Nucleated RBC Nucleated RBC % (auto) Neutrophils % (Manual) Band Neutrophils % Lymphocytes % (Manual) Atypical Lymphs % (Man) Monocytes % (Manual) Eosinophils % (Manual) Basophils % (Manual) Metamyelocytes % Myelocytes % Abs Neuts (Manual) Lymphocytes # (Manual) Atyp Lymphs # (Manual) Monocytes # (Manual) Eosinophils # (Manual) Basophils # (Manual) Metamyelocytes # Myelocytes # Nucleated RBCs Toxic Vacuolation Platelet Estimate Large Platelets Plt Morphology Comment RBC Morphology Polychromasia Hypochromasia Microcytosis Ovalocytes [place] Cells Acanthocytes (Spur) Schistocytes Smear Tech's Comments PT 19.3 H INR 1.6 H APTT 31.4 D-Dimer 3104 ABG pH ABG pCO2 ABG pO2 ABG HCO3 ABG O2 Saturation ABG Base Excess VBG pH VBG pCO2 VBG pO2 VBG HCO3 VBG O2 Saturation VBG Base Excess Oxygen Given Sodium 130 L Potassium 4.8 Chloride 92 L Carbon Dioxide 27 Anion Gap 16 BUN 82 H* Creatinine 1.42 H Estim Creat Clear Calc 57.9 Estimated GFR 37 POC Glucose 342 H Random Glucose 410 H* Lactic Acid Calcium 8.3 L Phosphorus 4.8 H Magnesium 2.2 Ferritin 744 H Total Bilirubin 1.1 H Direct Bilirubin 0.6 H AST 31 ALT 24 Alkaline Phosphatase 121 H Lactate Dehydrogenase 499 H Total Creatine Kinase 79 D Troponin I High Sens C-Reactive Protein 15.43 H B-Natriuretic Peptide Total Protein 6.4 L Albumin 2.8 L Procalcitonin TSH Free T4 Free T3 Vancomycin Trough Coronavirus (PCR) COVID-19 (NELLY) COVID-19 Clin Com Influenza Type A (PCR) Influenza Type B (PCR) RSV RNA Qual (PCR) Blood Type Antibody Screen 11/19/20 11/19/20 11/19/20 05:20 05:20 05:20 WBC 10.1 RBC 4.59 Hgb 11.8 L Hct 36.7 L MCV 80.0 MCH 25.7 L MCHC 32.2 RDW 16.3 H Plt Count 141 L MPV 9.9 Immature Gran % (Auto) 2.0 H Neut % (Auto) 89.2 H Lymph % (Auto) 5.5 L [place] % (Auto) 2.9 Eos % (Auto) 0.3 Baso % (Auto) 0.1 Lymph # (Auto) 0.6 L [place] # (Auto) 0.3 Eos # (Auto) 0.0 Baso # (Auto) 0.0 Abs Immat Gran (auto) 0.20 H Absolute Neuts (auto) 9.0 H Absolute Nucleated RBC 0.000 Nucleated RBC % (auto) 0.0 Neutrophils % (Manual) Band Neutrophils % Lymphocytes % (Manual) Atypical Lymphs % (Man) Monocytes % (Manual) Eosinophils % (Manual) Basophils % (Manual) Metamyelocytes % Myelocytes % Abs Neuts (Manual) Lymphocytes # (Manual) Atyp Lymphs # (Manual) Monocytes # (Manual) Eosinophils # (Manual) Basophils # (Manual) Metamyelocytes # Myelocytes # Nucleated RBCs Toxic Vacuolation Platelet Estimate Large Platelets Plt Morphology Comment RBC Morphology Polychromasia Hypochromasia Microcytosis Ovalocytes [place] Cells Acanthocytes (Spur) Schistocytes Smear Tech's Comments VERIFIED PT INR APTT D-Dimer ABG pH ABG pCO2 ABG pO2 ABG HCO3 ABG O2 Saturation ABG Base Excess VBG pH 7.38 VBG pCO2 42 VBG pO2 57 VBG HCO3 25 VBG O2 Saturation 84.0 VBG Base Excess 0.3 Oxygen Given Sodium Potassium Chloride Carbon Dioxide Anion Gap BUN Creatinine Estim Creat Clear Calc Estimated GFR POC Glucose Random Glucose Lactic Acid Calcium Phosphorus Magnesium Ferritin Total Bilirubin Direct Bilirubin AST ALT Alkaline Phosphatase Lactate Dehydrogenase Total Creatine Kinase Troponin I High Sens C-Reactive Protein B-Natriuretic Peptide 48 Total Protein Albumin Procalcitonin TSH Free T4 Free T3 Vancomycin Trough Coronavirus (PCR) COVID-19 (NELLY) COVID-19 Clin Com Influenza Type A (PCR) Influenza Type B (PCR) RSV RNA Qual (PCR) Blood Type Antibody Screen 11/19/20 11/19/20 11/19/20 07:10 07:59 07:59 WBC RBC Hgb Hct MCV MCH MCHC RDW Plt Count MPV Immature Gran % (Auto) Neut % (Auto) Lymph % (Auto) [place] % (Auto) Eos % (Auto) Baso % (Auto) Lymph # (Auto) [place] # (Auto) Eos # (Auto) Baso # (Auto) Abs Immat Gran (auto) Absolute Neuts (auto) Absolute Nucleated RBC Nucleated RBC % (auto) Neutrophils % (Manual) Band Neutrophils % Lymphocytes % (Manual) Atypical Lymphs % (Man) Monocytes % (Manual) Eosinophils % (Manual) Basophils % (Manual) Metamyelocytes % Myelocytes % Abs Neuts (Manual) Lymphocytes # (Manual) Atyp Lymphs # (Manual) Monocytes # (Manual) Eosinophils # (Manual) Basophils # (Manual) Metamyelocytes # Myelocytes # Nucleated RBCs Toxic Vacuolation Platelet Estimate Large Platelets Plt Morphology Comment RBC Morphology Polychromasia Hypochromasia Microcytosis Ovalocytes [place] Cells Acanthocytes (Spur) Schistocytes Smear Tech's Comments PT INR APTT D-Dimer ABG pH ABG pCO2 ABG pO2 ABG HCO3 ABG O2 Saturation ABG Base Excess VBG pH VBG pCO2 VBG pO2 VBG HCO3 VBG O2 Saturation VBG Base Excess Oxygen Given Sodium Potassium Chloride Carbon Dioxide Anion Gap BUN Creatinine Estim Creat Clear Calc Estimated GFR POC Glucose 379 H* Random Glucose Lactic Acid Calcium Phosphorus Magnesium Ferritin Total Bilirubin Direct Bilirubin AST ALT Alkaline Phosphatase Lactate Dehydrogenase Total Creatine Kinase Troponin I High Sens C-Reactive Protein B-Natriuretic Peptide Total Protein Albumin Procalcitonin TSH 0.19 L Free T4 1.32 Free T3 1.3 L Vancomycin Trough Coronavirus (PCR) COVID-19 (NELLY) COVID-19 Clin Com Influenza Type A (PCR) Influenza Type B (PCR) RSV RNA Qual (PCR) Blood Type Antibody Screen 11/19/20 11/19/20 11/19/20 08:53 10:07 10:54 WBC RBC Hgb Hct MCV MCH MCHC RDW Plt Count MPV Immature Gran % (Auto) Neut % (Auto) Lymph % (Auto) [place] % (Auto) Eos % (Auto) Baso % (Auto) Lymph # (Auto) [place] # (Auto) Eos # (Auto) Baso # (Auto) Abs Immat Gran (auto) Absolute Neuts (auto) Absolute Nucleated RBC Nucleated RBC % (auto) Neutrophils % (Manual) Band Neutrophils % Lymphocytes % (Manual) Atypical Lymphs % (Man) Monocytes % (Manual) Eosinophils % (Manual) Basophils % (Manual) Metamyelocytes % Myelocytes % Abs Neuts (Manual) Lymphocytes # (Manual) Atyp Lymphs # (Manual) Monocytes # (Manual) Eosinophils # (Manual) Basophils # (Manual) Metamyelocytes # Myelocytes # Nucleated RBCs Toxic Vacuolation Platelet Estimate Large Platelets Plt Morphology Comment RBC Morphology Polychromasia Hypochromasia Microcytosis Ovalocytes Paige Cells Acanthocytes (Spur) Schistocytes Smear Tech's Comments PT INR APTT D-Dimer ABG pH ABG pCO2 ABG pO2 ABG HCO3 ABG O2 Saturation ABG Base Excess VBG pH VBG pCO2 VBG pO2 VBG HCO3 VBG O2 Saturation VBG Base Excess Oxygen Given Sodium Potassium Chloride Carbon Dioxide Anion Gap BUN Creatinine Estim Creat Clear Calc Estimated GFR POC Glucose 318 H 278 H 224 H Random Glucose Lactic Acid Calcium Phosphorus Magnesium Ferritin Total Bilirubin Direct Bilirubin AST ALT Alkaline Phosphatase Lactate Dehydrogenase Total Creatine Kinase Troponin I High Sens C-Reactive Protein B-Natriuretic Peptide Total Protein Albumin Procalcitonin TSH Free T4 Free T3 Vancomycin Trough Coronavirus (PCR) COVID-19 (NELLY) COVID-19 Clin Com Influenza Type A (PCR) Influenza Type B (PCR) RSV RNA Qual (PCR) Blood Type Antibody Screen 11/19/20 11/19/20 11/19/20 11:54 12:59 13:58 WBC RBC Hgb Hct MCV MCH MCHC RDW Plt Count MPV Immature Gran % (Auto) Neut % (Auto) Lymph % (Auto) [place] % (Auto) Eos % (Auto) Baso % (Auto) Lymph # (Auto) [place] # (Auto) Eos # (Auto) Baso # (Auto) Abs Immat Gran (auto) Absolute Neuts (auto) Absolute Nucleated RBC Nucleated RBC % (auto) Neutrophils % (Manual) Band Neutrophils % Lymphocytes % (Manual) Atypical Lymphs % (Man) Monocytes % (Manual) Eosinophils % (Manual) Basophils % (Manual) Metamyelocytes % Myelocytes % Abs Neuts (Manual) Lymphocytes # (Manual) Atyp Lymphs # (Manual) Monocytes # (Manual) Eosinophils # (Manual) Basophils # (Manual) Metamyelocytes # Myelocytes # Nucleated RBCs Toxic Vacuolation Platelet Estimate Large Platelets Plt Morphology Comment RBC Morphology Polychromasia Hypochromasia Microcytosis Ovalocytes [place] Cells Acanthocytes (Spur) Schistocytes Smear Tech's Comments PT INR APTT D-Dimer ABG pH ABG pCO2 ABG pO2 ABG HCO3 ABG O2 Saturation ABG Base Excess VBG pH VBG pCO2 VBG pO2 VBG HCO3 VBG O2 Saturation VBG Base Excess Oxygen Given Sodium Potassium Chloride Carbon Dioxide Anion Gap BUN Creatinine Estim Creat Clear Calc Estimated GFR POC Glucose 222 H 256 H 229 H Random Glucose Lactic Acid Calcium Phosphorus Magnesium Ferritin Total Bilirubin Direct Bilirubin AST ALT Alkaline Phosphatase Lactate Dehydrogenase Total Creatine Kinase Troponin I High Sens C-Reactive Protein B-Natriuretic Peptide Total Protein Albumin Procalcitonin TSH Free T4 Free T3 Vancomycin Trough Coronavirus (PCR) COVID-19 (NELLY) COVID-19 Clin Com Influenza Type A (PCR) Influenza Type B (PCR) RSV RNA Qual (PCR) Blood Type Antibody Screen 11/19/20 11/19/20 11/19/20 15:08 16:14 17:11 WBC RBC Hgb Hct MCV MCH MCHC RDW Plt Count MPV Immature Gran % (Auto) Neut % (Auto) Lymph % (Auto) [place] % (Auto) Eos % (Auto) Baso % (Auto) Lymph # (Auto) [place] # (Auto) Eos # (Auto) Baso # (Auto) Abs Immat Gran (auto) Absolute Neuts (auto) Absolute Nucleated RBC Nucleated RBC % (auto) Neutrophils % (Manual) Band Neutrophils % Lymphocytes % (Manual) Atypical Lymphs % (Man) Monocytes % (Manual) Eosinophils % (Manual) Basophils % (Manual) Metamyelocytes % Myelocytes % Abs Neuts (Manual) Lymphocytes # (Manual) Atyp Lymphs # (Manual) Monocytes # (Manual) Eosinophils # (Manual) Basophils # (Manual) Metamyelocytes # Myelocytes # Nucleated RBCs Toxic Vacuolation Platelet Estimate Large Platelets Plt Morphology Comment RBC Morphology Polychromasia Hypochromasia Microcytosis Ovalocytes [place]ige Cells Acanthocytes (Spur) Schistocytes Smear Tech's Comments PT INR APTT D-Dimer ABG pH ABG pCO2 ABG pO2 ABG HCO3 ABG O2 Saturation ABG Base Excess VBG pH VBG pCO2 VBG pO2 VBG HCO3 VBG O2 Saturation VBG Base Excess Oxygen Given Sodium Potassium Chloride Carbon Dioxide Anion Gap BUN Creatinine Estim Creat Clear Calc Estimated GFR POC Glucose 258 H 292 H 275 H Random Glucose Lactic Acid Calcium Phosphorus Magnesium Ferritin Total Bilirubin Direct Bilirubin AST ALT Alkaline Phosphatase Lactate Dehydrogenase Total Creatine Kinase Troponin I High Sens C-Reactive Protein B-Natriuretic Peptide Total Protein Albumin Procalcitonin TSH Free T4 Free T3 Vancomycin Trough Coronavirus (PCR) COVID-19 (NELLY) COVID-19 Clin Com Influenza Type A (PCR) Influenza Type B (PCR) RSV RNA Qual (PCR) Blood Type Antibody Screen 11/19/20 11/19/20 11/19/20 17:56 18:56 20:05 WBC RBC Hgb Hct MCV MCH MCHC RDW Plt Count MPV Immature Gran % (Auto) Neut % (Auto) Lymph % (Auto) [place] % (Auto) Eos % (Auto) Baso % (Auto) Lymph # (Auto) [place] # (Auto) Eos # (Auto) Baso # (Auto) Abs Immat Gran (auto) Absolute Neuts (auto) Absolute Nucleated RBC Nucleated RBC % (auto) Neutrophils % (Manual) Band Neutrophils % Lymphocytes % (Manual) Atypical Lymphs % (Man) Monocytes % (Manual) Eosinophils % (Manual) Basophils % (Manual) Metamyelocytes % Myelocytes % Abs Neuts (Manual) Lymphocytes # (Manual) Atyp Lymphs # (Manual) Monocytes # (Manual) Eosinophils # (Manual) Basophils # (Manual) Metamyelocytes # Myelocytes # Nucleated RBCs Toxic Vacuolation Platelet Estimate Large Platelets Plt Morphology Comment RBC Morphology Polychromasia Hypochromasia Microcytosis Ovalocytes [place] Cells Acanthocytes (Spur) Schistocytes Smear Tech's Comments PT INR APTT D-Dimer ABG pH ABG pCO2 ABG pO2 ABG HCO3 ABG O2 Saturation ABG Base Excess VBG pH VBG pCO2 VBG pO2 VBG HCO3 VBG O2 Saturation VBG Base Excess Oxygen Given Sodium Potassium Chloride Carbon Dioxide Anion Gap BUN Creatinine Estim Creat Clear Calc Estimated GFR POC Glucose 267 H 244 H 248 H Random Glucose Lactic Acid Calcium Phosphorus Magnesium Ferritin Total Bilirubin Direct Bilirubin AST ALT Alkaline Phosphatase Lactate Dehydrogenase Total Creatine Kinase Troponin I High Sens C-Reactive Protein B-Natriuretic Peptide Total Protein Albumin Procalcitonin TSH Free T4 Free T3 Vancomycin Trough Coronavirus (PCR) COVID-19 (NELLY) COVID-19 Clin Com Influenza Type A (PCR) Influenza Type B (PCR) RSV RNA Qual (PCR) Blood Type Antibody Screen 11/19/20 11/19/20 11/19/20 21:10 22:08 23:13 WBC RBC Hgb Hct MCV MCH MCHC RDW Plt Count MPV Immature Gran % (Auto) Neut % (Auto) Lymph % (Auto) [place] % (Auto) Eos % (Auto) Baso % (Auto) Lymph # (Auto) [place] # (Auto) Eos # (Auto) Baso # (Auto) Abs Immat Gran (auto) Absolute Neuts (auto) Absolute Nucleated RBC Nucleated RBC % (auto) Neutrophils % (Manual) Band Neutrophils % Lymphocytes % (Manual) Atypical Lymphs % (Man) Monocytes % (Manual) Eosinophils % (Manual) Basophils % (Manual) Metamyelocytes % Myelocytes % Abs Neuts (Manual) Lymphocytes # (Manual) Atyp Lymphs # (Manual) Monocytes # (Manual) Eosinophils # (Manual) Basophils # (Manual) Metamyelocytes # Myelocytes # Nucleated RBCs Toxic Vacuolation Platelet Estimate Large Platelets Plt Morphology Comment RBC Morphology Polychromasia Hypochromasia Microcytosis Ovalocytes [place] Cells Acanthocytes (Spur) Schistocytes Smear Tech's Comments PT INR APTT D-Dimer ABG pH ABG pCO2 ABG pO2 ABG HCO3 ABG O2 Saturation ABG Base Excess VBG pH VBG pCO2 VBG pO2 VBG HCO3 VBG O2 Saturation VBG Base Excess Oxygen Given Sodium Potassium Chloride Carbon Dioxide Anion Gap BUN Creatinine Estim Creat Clear Calc Estimated GFR POC Glucose 244 H 235 H 194 H Random Glucose Lactic Acid Calcium Phosphorus Magnesium Ferritin Total Bilirubin Direct Bilirubin AST ALT Alkaline Phosphatase Lactate Dehydrogenase Total Creatine Kinase Troponin I High Sens C-Reactive Protein B-Natriuretic Peptide Total Protein Albumin Procalcitonin TSH Free T4 Free T3 Vancomycin Trough Coronavirus (PCR) COVID-19 (NELLY) COVID-19 Clin Com Influenza Type A (PCR) Influenza Type B (PCR) RSV RNA Qual (PCR) Blood Type Antibody Screen 11/20/20 11/20/20 11/20/20 01:53 03:07 05:10 WBC RBC Hgb Hct MCV MCH MCHC RDW Plt Count MPV Immature Gran % (Auto) Neut % (Auto) Lymph % (Auto) [place] % (Auto) Eos % (Auto) Baso % (Auto) Lymph # (Auto) [place] # (Auto) Eos # (Auto) Baso # (Auto) Abs Immat Gran (auto) Absolute Neuts (auto) Absolute Nucleated RBC Nucleated RBC % (auto) Neutrophils % (Manual) Band Neutrophils % Lymphocytes % (Manual) Atypical Lymphs % (Man) Monocytes % (Manual) Eosinophils % (Manual) Basophils % (Manual) Metamyelocytes % Myelocytes % Abs Neuts (Manual) Lymphocytes # (Manual) Atyp Lymphs # (Manual) Monocytes # (Manual) Eosinophils # (Manual) Basophils # (Manual) Metamyelocytes # Myelocytes # Nucleated RBCs Toxic Vacuolation Platelet Estimate Large Platelets Plt Morphology Comment RBC Morphology Polychromasia Hypochromasia Microcytosis Ovalocytes [place] Cells Acanthocytes (Spur) Schistocytes Smear Tech's Comments PT INR APTT D-Dimer ABG pH ABG pCO2 ABG pO2 ABG HCO3 ABG O2 Saturation ABG Base Excess VBG pH VBG pCO2 VBG pO2 VBG HCO3 VBG O2 Saturation VBG Base Excess Oxygen Given Sodium Potassium Chloride Carbon Dioxide Anion Gap BUN Creatinine Estim Creat Clear Calc Estimated GFR POC Glucose 98 115 160 H Random Glucose Lactic Acid Calcium Phosphorus Magnesium Ferritin Total Bilirubin Direct Bilirubin AST ALT Alkaline Phosphatase Lactate Dehydrogenase Total Creatine Kinase Troponin I High Sens C-Reactive Protein B-Natriuretic Peptide Total Protein Albumin Procalcitonin TSH Free T4 Free T3 Vancomycin Trough Coronavirus (PCR) COVID-19 (NELLY) COVID-19 Clin Com Influenza Type A (PCR) Influenza Type B (PCR) RSV RNA Qual (PCR) Blood Type Antibody Screen 11/20/20 11/20/20 11/20/20 05:40 05:40 05:40 WBC 12.4 H RBC 4.87 Hgb 12.5 Hct 38.3 MCV 78.6 L MCH 25.7 L MCHC 32.6 RDW 16.1 H Plt Count 156 L MPV 9.9 Immature Gran % (Auto) 1.9 H Neut % (Auto) 88.1 H Lymph % (Auto) 6.2 L [place] % (Auto) 3.2 Eos % (Auto) 0.4 Baso % (Auto) 0.2 Lymph # (Auto) 0.8 L [place] # (Auto) 0.4 Eos # (Auto) 0.1 Baso # (Auto) 0.0 Abs Immat Gran (auto) 0.23 H Absolute Neuts (auto) 10.9 H Absolute Nucleated RBC 0.000 Nucleated RBC % (auto) 0.0 Neutrophils % (Manual) Band Neutrophils % Lymphocytes % (Manual) Atypical Lymphs % (Man) Monocytes % (Manual) Eosinophils % (Manual) Basophils % (Manual) Metamyelocytes % Myelocytes % Abs Neuts (Manual) Lymphocytes # (Manual) Atyp Lymphs # (Manual) Monocytes # (Manual) Eosinophils # (Manual) Basophils # (Manual) Metamyelocytes # Myelocytes # Nucleated RBCs Toxic Vacuolation Platelet Estimate Large Platelets Plt Morphology Comment RBC Morphology Polychromasia Hypochromasia Microcytosis Ovalocytes [place] Cells Acanthocytes (Spur) Schistocytes Smear Tech's Comments PT 15.6 H INR 1.3 H APTT 30.3 D-Dimer 3002 ABG pH ABG pCO2 ABG pO2 ABG HCO3 ABG O2 Saturation ABG Base Excess VBG pH VBG pCO2 VBG pO2 VBG HCO3 VBG O2 Saturation VBG Base Excess Oxygen Given Sodium 133 L Potassium 4.8 Chloride 95 L Carbon Dioxide 24 Anion Gap 19 BUN 80 H* Creatinine 1.19 Estim Creat Clear Calc 69.1 Estimated GFR 45 POC Glucose Random Glucose 235 H D Lactic Acid Calcium 8.4 Phosphorus 3.8 Magnesium 2.4 Ferritin 764 H Total Bilirubin 1.0 Direct Bilirubin 0.6 H AST 33 H ALT 24 Alkaline Phosphatase 120 H Lactate Dehydrogenase 501 H Total Creatine Kinase 114 D Troponin I High Sens C-Reactive Protein 9.05 H B-Natriuretic Peptide Total Protein 6.6 Albumin 2.9 L Procalcitonin TSH Free T4 Free T3 Vancomycin Trough Coronavirus (PCR) COVID-19 (NELLY) COVID-19 Clin Com Influenza Type A (PCR) Influenza Type B (PCR) RSV RNA Qual (PCR) Blood Type Antibody Screen 11/20/20 11/20/20 11/20/20 05:40 06:52 07:54 WBC RBC Hgb Hct MCV MCH MCHC RDW Plt Count MPV Immature Gran % (Auto) Neut % (Auto) Lymph % (Auto) [place] % (Auto) Eos % (Auto) Baso % (Auto) Lymph # (Auto) [place] # (Auto) Eos # (Auto) Baso # (Auto) Abs Immat Gran (auto) Absolute Neuts (auto) Absolute Nucleated RBC Nucleated RBC % (auto) Neutrophils % (Manual) Band Neutrophils % Lymphocytes % (Manual) Atypical Lymphs % (Man) Monocytes % (Manual) Eosinophils % (Manual) Basophils % (Manual) Metamyelocytes % Myelocytes % Abs Neuts (Manual) Lymphocytes # (Manual) Atyp Lymphs # (Manual) Monocytes # (Manual) Eosinophils # (Manual) Basophils # (Manual) Metamyelocytes # Myelocytes # Nucleated RBCs Toxic Vacuolation Platelet Estimate Large Platelets Plt Morphology Comment RBC Morphology Polychromasia Hypochromasia Microcytosis Ovalocytes [place] Cells Acanthocytes (Spur) Schistocytes Smear Tech's Comments PT INR APTT D-Dimer ABG pH ABG pCO2 ABG pO2 ABG HCO3 ABG O2 Saturation ABG Base Excess VBG pH 7.43 VBG pCO2 37 VBG pO2 46 VBG HCO3 25 VBG O2 Saturation 75.0 VBG Base Excess 1.2 Oxygen Given Sodium Potassium Chloride Carbon Dioxide Anion Gap BUN Creatinine Estim Creat Clear Calc Estimated GFR POC Glucose 224 H 224 H Random Glucose Lactic Acid Calcium Phosphorus Magnesium Ferritin Total Bilirubin Direct Bilirubin AST ALT Alkaline Phosphatase Lactate Dehydrogenase Total Creatine Kinase Troponin I High Sens C-Reactive Protein B-Natriuretic Peptide Total Protein Albumin Procalcitonin TSH Free T4 Free T3 Vancomycin Trough Coronavirus (PCR) COVID-19 (NELLY) COVID-19 Clin Com Influenza Type A (PCR) Influenza Type B (PCR) RSV RNA Qual (PCR) Blood Type Antibody Screen 11/20/20 11/20/20 11/20/20 08:58 09:52 11:00 WBC RBC Hgb Hct MCV MCH MCHC RDW Plt Count MPV Immature Gran % (Auto) Neut % (Auto) Lymph % (Auto) [place] % (Auto) Eos % (Auto) Baso % (Auto) Lymph # (Auto) [place] # (Auto) Eos # (Auto) Baso # (Auto) Abs Immat Gran (auto) Absolute Neuts (auto) Absolute Nucleated RBC Nucleated RBC % (auto) Neutrophils % (Manual) Band Neutrophils % Lymphocytes % (Manual) Atypical Lymphs % (Man) Monocytes % (Manual) Eosinophils % (Manual) Basophils % (Manual) Metamyelocytes % Myelocytes % Abs Neuts (Manual) Lymphocytes # (Manual) Atyp Lymphs # (Manual) Monocytes # (Manual) Eosinophils # (Manual) Basophils # (Manual) Metamyelocytes # Myelocytes # Nucleated RBCs Toxic Vacuolation Platelet Estimate Large Platelets Plt Morphology Comment RBC Morphology Polychromasia Hypochromasia Microcytosis Ovalocytes [place] Cells Acanthocytes (Spur) Schistocytes Smear Tech's Comments PT INR APTT D-Dimer ABG pH ABG pCO2 ABG pO2 ABG HCO3 ABG O2 Saturation ABG Base Excess VBG pH VBG pCO2 VBG pO2 VBG HCO3 VBG O2 Saturation VBG Base Excess Oxygen Given Sodium Potassium Chloride Carbon Dioxide Anion Gap BUN Creatinine Estim Creat Clear Calc Estimated GFR POC Glucose 233 H 229 H 223 H Random Glucose Lactic Acid Calcium Phosphorus Magnesium Ferritin Total Bilirubin Direct Bilirubin AST ALT Alkaline Phosphatase Lactate Dehydrogenase Total Creatine Kinase Troponin I High Sens C-Reactive Protein B-Natriuretic Peptide Total Protein Albumin Procalcitonin TSH Free T4 Free T3 Vancomycin Trough Coronavirus (PCR) COVID-19 (NELLY) COVID-19 Clin Com Influenza Type A (PCR) Influenza Type B (PCR) RSV RNA Qual (PCR) Blood Type Antibody Screen 11/20/20 11/20/20 11/20/20 11:21 11:53 12:53 WBC RBC Hgb Hct MCV MCH MCHC RDW Plt Count MPV Immature Gran % (Auto) Neut % (Auto) Lymph % (Auto) [place] % (Auto) Eos % (Auto) Baso % (Auto) Lymph # (Auto) [place] # (Auto) Eos # (Auto) Baso # (Auto) Abs Immat Gran (auto) Absolute Neuts (auto) Absolute Nucleated RBC Nucleated RBC % (auto) Neutrophils % (Manual) Band Neutrophils % Lymphocytes % (Manual) Atypical Lymphs % (Man) Monocytes % (Manual) Eosinophils % (Manual) Basophils % (Manual) Metamyelocytes % Myelocytes % Abs Neuts (Manual) Lymphocytes # (Manual) Atyp Lymphs # (Manual) Monocytes # (Manual) Eosinophils # (Manual) Basophils # (Manual) Metamyelocytes # Myelocytes # Nucleated RBCs Toxic Vacuolation Platelet Estimate Large Platelets Plt Morphology Comment RBC Morphology Polychromasia Hypochromasia Microcytosis Ovalocytes [place] Cells Acanthocytes (Spur) Schistocytes Smear Tech's Comments PT INR APTT D-Dimer ABG pH ABG pCO2 ABG pO2 ABG HCO3 ABG O2 Saturation ABG Base Excess VBG pH VBG pCO2 VBG pO2 VBG HCO3 VBG O2 Saturation VBG Base Excess Oxygen Given Sodium Potassium Chloride Carbon Dioxide Anion Gap BUN Creatinine Estim Creat Clear Calc Estimated GFR POC Glucose 228 H 205 H Random Glucose Lactic Acid Calcium Phosphorus Magnesium Ferritin Total Bilirubin Direct Bilirubin AST ALT Alkaline Phosphatase Lactate Dehydrogenase Total Creatine Kinase Troponin I High Sens C-Reactive Protein B-Natriuretic Peptide 56 Total Protein Albumin Procalcitonin TSH Free T4 Free T3 Vancomycin Trough Coronavirus (PCR) COVID-19 (NELLY) COVID-19 Clin Com Influenza Type A (PCR) Influenza Type B (PCR) RSV RNA Qual (PCR) Blood Type Antibody Screen 11/20/20 11/20/20 11/20/20 13:48 14:56 15:53 WBC RBC Hgb Hct MCV MCH MCHC RDW Plt Count MPV Immature Gran % (Auto) Neut % (Auto) Lymph % (Auto) [place] % (Auto) Eos % (Auto) Baso % (Auto) Lymph # (Auto) [place] # (Auto) Eos # (Auto) Baso # (Auto) Abs Immat Gran (auto) Absolute Neuts (auto) Absolute Nucleated RBC Nucleated RBC % (auto) Neutrophils % (Manual) Band Neutrophils % Lymphocytes % (Manual) Atypical Lymphs % (Man) Monocytes % (Manual) Eosinophils % (Manual) Basophils % (Manual) Metamyelocytes % Myelocytes % Abs Neuts (Manual) Lymphocytes # (Manual) Atyp Lymphs # (Manual) Monocytes # (Manual) Eosinophils # (Manual) Basophils # (Manual) Metamyelocytes # Myelocytes # Nucleated RBCs Toxic Vacuolation Platelet Estimate Large Platelets Plt Morphology Comment RBC Morphology Polychromasia Hypochromasia Microcytosis Ovalocytes [place] Cells Acanthocytes (Spur) Schistocytes Smear Tech's Comments PT INR APTT D-Dimer ABG pH ABG pCO2 ABG pO2 ABG HCO3 ABG O2 Saturation ABG Base Excess VBG pH VBG pCO2 VBG pO2 VBG HCO3 VBG O2 Saturation VBG Base Excess Oxygen Given Sodium Potassium Chloride Carbon Dioxide Anion Gap BUN Creatinine Estim Creat Clear Calc Estimated GFR POC Glucose 224 H 240 H 227 H Random Glucose Lactic Acid Calcium Phosphorus Magnesium Ferritin Total Bilirubin Direct Bilirubin AST ALT Alkaline Phosphatase Lactate Dehydrogenase Total Creatine Kinase Troponin I High Sens C-Reactive Protein B-Natriuretic Peptide Total Protein Albumin Procalcitonin TSH Free T4 Free T3 Vancomycin Trough Coronavirus (PCR) COVID-19 (NELLY) COVID-19 Clin Com Influenza Type A (PCR) Influenza Type B (PCR) RSV RNA Qual (PCR) Blood Type Antibody Screen 11/20/20 11/20/20 11/20/20 16:54 17:59 20:37 WBC RBC Hgb Hct MCV MCH MCHC RDW Plt Count MPV Immature Gran % (Auto) Neut % (Auto) Lymph % (Auto) [place] % (Auto) Eos % (Auto) Baso % (Auto) Lymph # (Auto) [place] # (Auto) Eos # (Auto) Baso # (Auto) Abs Immat Gran (auto) Absolute Neuts (auto) Absolute Nucleated RBC Nucleated RBC % (auto) Neutrophils % (Manual) Band Neutrophils % Lymphocytes % (Manual) Atypical Lymphs % (Man) Monocytes % (Manual) Eosinophils % (Manual) Basophils % (Manual) Metamyelocytes % Myelocytes % Abs Neuts (Manual) Lymphocytes # (Manual) Atyp Lymphs # (Manual) Monocytes # (Manual) Eosinophils # (Manual) Basophils # (Manual) Metamyelocytes # Myelocytes # Nucleated RBCs Toxic Vacuolation Platelet Estimate Large Platelets Plt Morphology Comment RBC Morphology Polychromasia Hypochromasia Microcytosis Ovalocytes [place] Cells Acanthocytes (Spur) Schistocytes Smear Tech's Comments PT INR APTT D-Dimer ABG pH ABG pCO2 ABG pO2 ABG HCO3 ABG O2 Saturation ABG Base Excess VBG pH VBG pCO2 VBG pO2 VBG HCO3 VBG O2 Saturation VBG Base Excess Oxygen Given Sodium Potassium Chloride Carbon Dioxide Anion Gap BUN Creatinine Estim Creat Clear Calc Estimated GFR POC Glucose 203 H 204 H 202 H Random Glucose Lactic Acid Calcium Phosphorus Magnesium Ferritin Total Bilirubin Direct Bilirubin AST ALT Alkaline Phosphatase Lactate Dehydrogenase Total Creatine Kinase Troponin I High Sens C-Reactive Protein B-Natriuretic Peptide Total Protein Albumin Procalcitonin TSH Free T4 Free T3 Vancomycin Trough Coronavirus (PCR) COVID-19 (NELLY) COVID-19 Clin Com Influenza Type A (PCR) Influenza Type B (PCR) RSV RNA Qual (PCR) Blood Type Antibody Screen 11/20/20 11/20/20 11/21/20 22:01 23:43 02:11 WBC RBC Hgb Hct MCV MCH MCHC RDW Plt Count MPV Immature Gran % (Auto) Neut % (Auto) Lymph % (Auto) [place] % (Auto) Eos % (Auto) Baso % (Auto) Lymph # (Auto) [place] # (Auto) Eos # (Auto) Baso # (Auto) Abs Immat Gran (auto) Absolute Neuts (auto) Absolute Nucleated RBC Nucleated RBC % (auto) Neutrophils % (Manual) Band Neutrophils % Lymphocytes % (Manual) Atypical Lymphs % (Man) Monocytes % (Manual) Eosinophils % (Manual) Basophils % (Manual) Metamyelocytes % Myelocytes % Abs Neuts (Manual) Lymphocytes # (Manual) Atyp Lymphs # (Manual) Monocytes # (Manual) Eosinophils # (Manual) Basophils # (Manual) Metamyelocytes # Myelocytes # Nucleated RBCs Toxic Vacuolation Platelet Estimate Large Platelets Plt Morphology Comment RBC Morphology Polychromasia Hypochromasia Microcytosis Ovalocytes [place] Cells Acanthocytes (Spur) Schistocytes Smear Tech's Comments PT INR APTT D-Dimer ABG pH ABG pCO2 ABG pO2 ABG HCO3 ABG O2 Saturation ABG Base Excess VBG pH VBG pCO2 VBG pO2 VBG HCO3 VBG O2 Saturation VBG Base Excess Oxygen Given Sodium Potassium Chloride Carbon Dioxide Anion Gap BUN Creatinine Estim Creat Clear Calc Estimated GFR POC Glucose 193 H 210 H 155 H Random Glucose Lactic Acid Calcium Phosphorus Magnesium Ferritin Total Bilirubin Direct Bilirubin AST ALT Alkaline Phosphatase Lactate Dehydrogenase Total Creatine Kinase Troponin I High Sens C-Reactive Protein B-Natriuretic Peptide Total Protein Albumin Procalcitonin TSH Free T4 Free T3 Vancomycin Trough Coronavirus (PCR) COVID-19 (NELLY) COVID-19 Clin Com Influenza Type A (PCR) Influenza Type B (PCR) RSV RNA Qual (PCR) Blood Type Antibody Screen 11/21/20 11/21/20 11/21/20 04:01 05:38 05:38 WBC RBC Hgb Hct MCV MCH MCHC RDW Plt Count MPV Immature Gran % (Auto) Neut % (Auto) Lymph % (Auto) [place] % (Auto) Eos % (Auto) Baso % (Auto) Lymph # (Auto) [place] # (Auto) Eos # (Auto) Baso # (Auto) Abs Immat Gran (auto) Absolute Neuts (auto) Absolute Nucleated RBC Nucleated RBC % (auto) Neutrophils % (Manual) Band Neutrophils % Lymphocytes % (Manual) Atypical Lymphs % (Man) Monocytes % (Manual) Eosinophils % (Manual) Basophils % (Manual) Metamyelocytes % Myelocytes % Abs Neuts (Manual) Lymphocytes # (Manual) Atyp Lymphs # (Manual) Monocytes # (Manual) Eosinophils # (Manual) Basophils # (Manual) Metamyelocytes # Myelocytes # Nucleated RBCs Toxic Vacuolation Platelet Estimate Large Platelets Plt Morphology Comment RBC Morphology Polychromasia Hypochromasia Microcytosis Ovalocytes [place] Cells Acanthocytes (Spur) Schistocytes Smear Tech's Comments PT 15.0 H INR 1.3 H APTT 35.9 D-Dimer 1874 ABG pH ABG pCO2 ABG pO2 ABG HCO3 ABG O2 Saturation ABG Base Excess VBG pH VBG pCO2 VBG pO2 VBG HCO3 VBG O2 Saturation VBG Base Excess Oxygen Given Sodium 137 Potassium 4.6 Chloride 98 Carbon Dioxide 26 Anion Gap 18 BUN 71 H Creatinine 0.98 Estim Creat Clear Calc 83.9 Estimated GFR 57 POC Glucose 157 H Random Glucose 187 H Lactic Acid Calcium 8.3 L Phosphorus 4.2 Magnesium 2.5 Ferritin 634 H Total Bilirubin 0.8 Direct Bilirubin 0.5 AST 31 ALT 22 Alkaline Phosphatase 111 Lactate Dehydrogenase 500 H Total Creatine Kinase 83 Troponin I High Sens C-Reactive Protein 8.03 H B-Natriuretic Peptide Total Protein 6.7 Albumin 2.8 L Procalcitonin TSH Free T4 Free T3 Vancomycin Trough Coronavirus (PCR) COVID-19 (NELLY) COVID-19 Clin Com Influenza Type A (PCR) Influenza Type B (PCR) RSV RNA Qual (PCR) Blood Type Antibody Screen 11/21/20 11/21/20 11/21/20 05:38 05:38 05:52 WBC 10.7 RBC 5.01 Hgb 12.7 Hct 40.1 MCV 80.0 MCH 25.3 L MCHC 31.7 RDW 16.6 H Plt Count 163 MPV 10.4 Immature Gran % (Auto) 3.1 H Neut % (Auto) 83.1 H Lymph % (Auto) 9.2 L [place] % (Auto) 3.5 Eos % (Auto) 0.9 Baso % (Auto) 0.2 Lymph # (Auto) 1.0 L [place] # (Auto) 0.4 Eos # (Auto) 0.1 Baso # (Auto) 0.0 Abs Immat Gran (auto) 0.33 H Absolute Neuts (auto) 8.9 H Absolute Nucleated RBC 0.000 Nucleated RBC % (auto) 0.0 Neutrophils % (Manual) Band Neutrophils % Lymphocytes % (Manual) Atypical Lymphs % (Man) Monocytes % (Manual) Eosinophils % (Manual) Basophils % (Manual) Metamyelocytes % Myelocytes % Abs Neuts (Manual) Lymphocytes # (Manual) Atyp Lymphs # (Manual) Monocytes # (Manual) Eosinophils # (Manual) Basophils # (Manual) Metamyelocytes # Myelocytes # Nucleated RBCs Toxic Vacuolation Platelet Estimate Large Platelets Plt Morphology Comment RBC Morphology Polychromasia Hypochromasia Microcytosis Ovalocytes [place]ige Cells Acanthocytes (Spur) Schistocytes Smear Tech's Comments PT INR APTT D-Dimer ABG pH ABG pCO2 ABG pO2 ABG HCO3 ABG O2 Saturation ABG Base Excess VBG pH 7.42 VBG pCO2 40 VBG pO2 60 VBG HCO3 26 VBG O2 Saturation 88.0 VBG Base Excess 2.0 Oxygen Given Sodium Potassium Chloride Carbon Dioxide Anion Gap BUN Creatinine Estim Creat Clear Calc Estimated GFR POC Glucose Random Glucose Lactic Acid Calcium Phosphorus Magnesium Ferritin Total Bilirubin Direct Bilirubin AST ALT Alkaline Phosphatase Lactate Dehydrogenase Total Creatine Kinase Troponin I High Sens C-Reactive Protein B-Natriuretic Peptide 115 H Total Protein Albumin Procalcitonin TSH Free T4 Free T3 Vancomycin Trough Coronavirus (PCR) COVID-19 (NELLY) COVID-19 Clin Com Influenza Type A (PCR) Influenza Type B (PCR) RSV RNA Qual (PCR) Blood Type Antibody Screen 11/21/20 11/21/20 11/21/20 08:06 10:11 12:30 WBC RBC Hgb Hct MCV MCH MCHC RDW Plt Count MPV Immature Gran % (Auto) Neut % (Auto) Lymph % (Auto) [place] % (Auto) Eos % (Auto) Baso % (Auto) Lymph # (Auto) [place] # (Auto) Eos # (Auto) Baso # (Auto) Abs Immat Gran (auto) Absolute Neuts (auto) Absolute Nucleated RBC Nucleated RBC % (auto) Neutrophils % (Manual) Band Neutrophils % Lymphocytes % (Manual) Atypical Lymphs % (Man) Monocytes % (Manual) Eosinophils % (Manual) Basophils % (Manual) Metamyelocytes % Myelocytes % Abs Neuts (Manual) Lymphocytes # (Manual) Atyp Lymphs # (Manual) Monocytes # (Manual) Eosinophils # (Manual) Basophils # (Manual) Metamyelocytes # Myelocytes # Nucleated RBCs Toxic Vacuolation Platelet Estimate Large Platelets Plt Morphology Comment RBC Morphology Polychromasia Hypochromasia Microcytosis Ovalocytes [place] Cells Acanthocytes (Spur) Schistocytes Smear Tech's Comments PT INR APTT D-Dimer ABG pH ABG pCO2 ABG pO2 ABG HCO3 ABG O2 Saturation ABG Base Excess VBG pH VBG pCO2 VBG pO2 VBG HCO3 VBG O2 Saturation VBG Base Excess Oxygen Given Sodium Potassium Chloride Carbon Dioxide Anion Gap BUN Creatinine Estim Creat Clear Calc Estimated GFR POC Glucose 200 H 198 H 215 H Random Glucose Lactic Acid Calcium Phosphorus Magnesium Ferritin Total Bilirubin Direct Bilirubin AST ALT Alkaline Phosphatase Lactate Dehydrogenase Total Creatine Kinase Troponin I High Sens C-Reactive Protein B-Natriuretic Peptide Total Protein Albumin Procalcitonin TSH Free T4 Free T3 Vancomycin Trough Coronavirus (PCR) COVID-19 (NELLY) COVID-19 Clin Com Influenza Type A (PCR) Influenza Type B (PCR) RSV RNA Qual (PCR) Blood Type Antibody Screen 11/21/20 11/21/20 11/21/20 14:12 15:22 16:21 WBC RBC Hgb Hct MCV MCH MCHC RDW Plt Count MPV Immature Gran % (Auto) Neut % (Auto) Lymph % (Auto) [place] % (Auto) Eos % (Auto) Baso % (Auto) Lymph # (Auto) [place] # (Auto) Eos # (Auto) Baso # (Auto) Abs Immat Gran (auto) Absolute Neuts (auto) Absolute Nucleated RBC Nucleated RBC % (auto) Neutrophils % (Manual) Band Neutrophils % Lymphocytes % (Manual) Atypical Lymphs % (Man) Monocytes % (Manual) Eosinophils % (Manual) Basophils % (Manual) Metamyelocytes % Myelocytes % Abs Neuts (Manual) Lymphocytes # (Manual) Atyp Lymphs # (Manual) Monocytes # (Manual) Eosinophils # (Manual) Basophils # (Manual) Metamyelocytes # Myelocytes # Nucleated RBCs Toxic Vacuolation Platelet Estimate Large Platelets Plt Morphology Comment RBC Morphology Polychromasia Hypochromasia Microcytosis Ovalocytes [place] Cells Acanthocytes (Spur) Schistocytes Smear Tech's Comments PT INR APTT D-Dimer ABG pH ABG pCO2 ABG pO2 ABG HCO3 ABG O2 Saturation ABG Base Excess VBG pH VBG pCO2 VBG pO2 VBG HCO3 VBG O2 Saturation VBG Base Excess Oxygen Given Sodium Potassium Chloride Carbon Dioxide Anion Gap BUN Creatinine Estim Creat Clear Calc Estimated GFR POC Glucose 275 H 275 H 282 H Random Glucose Lactic Acid Calcium Phosphorus Magnesium Ferritin Total Bilirubin Direct Bilirubin AST ALT Alkaline Phosphatase Lactate Dehydrogenase Total Creatine Kinase Troponin I High Sens C-Reactive Protein B-Natriuretic Peptide Total Protein Albumin Procalcitonin TSH Free T4 Free T3 Vancomycin Trough Coronavirus (PCR) COVID-19 (NELLY) COVID-19 Clin Com Influenza Type A (PCR) Influenza Type B (PCR) RSV RNA Qual (PCR) Blood Type Antibody Screen 11/21/20 11/21/20 11/21/20 17:23 18:56 20:26 WBC RBC Hgb Hct MCV MCH MCHC RDW Plt Count MPV Immature Gran % (Auto) Neut % (Auto) Lymph % (Auto) [place] % (Auto) Eos % (Auto) Baso % (Auto) Lymph # (Auto) [place] # (Auto) Eos # (Auto) Baso # (Auto) Abs Immat Gran (auto) Absolute Neuts (auto) Absolute Nucleated RBC Nucleated RBC % (auto) Neutrophils % (Manual) Band Neutrophils % Lymphocytes % (Manual) Atypical Lymphs % (Man) Monocytes % (Manual) Eosinophils % (Manual) Basophils % (Manual) Metamyelocytes % Myelocytes % Abs Neuts (Manual) Lymphocytes # (Manual) Atyp Lymphs # (Manual) Monocytes # (Manual) Eosinophils # (Manual) Basophils # (Manual) Metamyelocytes # Myelocytes # Nucleated RBCs Toxic Vacuolation Platelet Estimate Large Platelets Plt Morphology Comment RBC Morphology Polychromasia Hypochromasia Microcytosis Ovalocytes [place] Cells Acanthocytes (Spur) Schistocytes Smear Tech's Comments PT INR APTT D-Dimer ABG pH ABG pCO2 ABG pO2 ABG HCO3 ABG O2 Saturation ABG Base Excess VBG pH VBG pCO2 VBG pO2 VBG HCO3 VBG O2 Saturation VBG Base Excess Oxygen Given Sodium Potassium Chloride Carbon Dioxide Anion Gap BUN Creatinine Estim Creat Clear Calc Estimated GFR POC Glucose 271 H 278 H 246 H Random Glucose Lactic Acid Calcium Phosphorus Magnesium Ferritin Total Bilirubin Direct Bilirubin AST ALT Alkaline Phosphatase Lactate Dehydrogenase Total Creatine Kinase Troponin I High Sens C-Reactive Protein B-Natriuretic Peptide Total Protein Albumin Procalcitonin TSH Free T4 Free T3 Vancomycin Trough Coronavirus (PCR) COVID-19 (NELLY) COVID-19 Clin Com Influenza Type A (PCR) Influenza Type B (PCR) RSV RNA Qual (PCR) Blood Type Antibody Screen 11/21/20 11/21/20 11/21/20 21:16 22:10 23:23 WBC RBC Hgb Hct MCV MCH MCHC RDW Plt Count MPV Immature Gran % (Auto) Neut % (Auto) Lymph % (Auto) [place] % (Auto) Eos % (Auto) Baso % (Auto) Lymph # (Auto) [place] # (Auto) Eos # (Auto) Baso # (Auto) Abs Immat Gran (auto) Absolute Neuts (auto) Absolute Nucleated RBC Nucleated RBC % (auto) Neutrophils % (Manual) Band Neutrophils % Lymphocytes % (Manual) Atypical Lymphs % (Man) Monocytes % (Manual) Eosinophils % (Manual) Basophils % (Manual) Metamyelocytes % Myelocytes % Abs Neuts (Manual) Lymphocytes # (Manual) Atyp Lymphs # (Manual) Monocytes # (Manual) Eosinophils # (Manual) Basophils # (Manual) Metamyelocytes # Myelocytes # Nucleated RBCs Toxic Vacuolation Platelet Estimate Large Platelets Plt Morphology Comment RBC Morphology Polychromasia Hypochromasia Microcytosis Ovalocytes [place] Cells Acanthocytes (Spur) Schistocytes Smear Tech's Comments PT INR APTT D-Dimer ABG pH ABG pCO2 ABG pO2 ABG HCO3 ABG O2 Saturation ABG Base Excess VBG pH VBG pCO2 VBG pO2 VBG HCO3 VBG O2 Saturation VBG Base Excess Oxygen Given Sodium Potassium Chloride Carbon Dioxide Anion Gap BUN Creatinine Estim Creat Clear Calc Estimated GFR POC Glucose 234 H 197 H 163 H Random Glucose Lactic Acid Calcium Phosphorus Magnesium Ferritin Total Bilirubin Direct Bilirubin AST ALT Alkaline Phosphatase Lactate Dehydrogenase Total Creatine Kinase Troponin I High Sens C-Reactive Protein B-Natriuretic Peptide Total Protein Albumin Procalcitonin TSH Free T4 Free T3 Vancomycin Trough Coronavirus (PCR) COVID-19 (NELLY) COVID-19 Clin Com Influenza Type A (PCR) Influenza Type B (PCR) RSV RNA Qual (PCR) Blood Type Antibody Screen 11/22/20 11/22/20 11/22/20 00:27 01:26 03:07 WBC RBC Hgb Hct MCV MCH MCHC RDW Plt Count MPV Immature Gran % (Auto) Neut % (Auto) Lymph % (Auto) [place] % (Auto) Eos % (Auto) Baso % (Auto) Lymph # (Auto) [place] # (Auto) Eos # (Auto) Baso # (Auto) Abs Immat Gran (auto) Absolute Neuts (auto) Absolute Nucleated RBC Nucleated RBC % (auto) Neutrophils % (Manual) Band Neutrophils % Lymphocytes % (Manual) Atypical Lymphs % (Man) Monocytes % (Manual) Eosinophils % (Manual) Basophils % (Manual) Metamyelocytes % Myelocytes % Abs Neuts (Manual) Lymphocytes # (Manual) Atyp Lymphs # (Manual) Monocytes # (Manual) Eosinophils # (Manual) Basophils # (Manual) Metamyelocytes # Myelocytes # Nucleated RBCs Toxic Vacuolation Platelet Estimate Large Platelets Plt Morphology Comment RBC Morphology Polychromasia Hypochromasia Microcytosis Ovalocytes [place] Cells Acanthocytes (Spur) Schistocytes Smear Tech's Comments PT INR APTT D-Dimer ABG pH ABG pCO2 ABG pO2 ABG HCO3 ABG O2 Saturation ABG Base Excess VBG pH VBG pCO2 VBG pO2 VBG HCO3 VBG O2 Saturation VBG Base Excess Oxygen Given Sodium Potassium Chloride Carbon Dioxide Anion Gap BUN Creatinine Estim Creat Clear Calc Estimated GFR POC Glucose 150 H 143 H 139 H Random Glucose Lactic Acid Calcium Phosphorus Magnesium Ferritin Total Bilirubin Direct Bilirubin AST ALT Alkaline Phosphatase Lactate Dehydrogenase Total Creatine Kinase Troponin I High Sens C-Reactive Protein B-Natriuretic Peptide Total Protein Albumin Procalcitonin TSH Free T4 Free T3 Vancomycin Trough Coronavirus (PCR) COVID-19 (NELLY) COVID-19 Clin Com Influenza Type A (PCR) Influenza Type B (PCR) RSV RNA Qual (PCR) Blood Type Antibody Screen 11/22/20 11/22/2021 04:15 05:13 05:13 WBC RBC Hgb Hct MCV MCH MCHC RDW Plt Count MPV Immature Gran % (Auto) Neut % (Auto) Lymph % (Auto) [place] % (Auto) Eos % (Auto) Baso % (Auto) Lymph # (Auto) [place] # (Auto) Eos # (Auto) Baso # (Auto) Abs Immat Gran (auto) Absolute Neuts (auto) Absolute Nucleated RBC Nucleated RBC % (auto) Neutrophils % (Manual) Band Neutrophils % Lymphocytes % (Manual) Atypical Lymphs % (Man) Monocytes % (Manual) Eosinophils % (Manual) Basophils % (Manual) Metamyelocytes % Myelocytes % Abs Neuts (Manual) Lymphocytes # (Manual) Atyp Lymphs # (Manual) Monocytes # (Manual) Eosinophils # (Manual) Basophils # (Manual) Metamyelocytes # Myelocytes # Nucleated RBCs Toxic Vacuolation Platelet Estimate Large Platelets Plt Morphology Comment RBC Morphology Polychromasia Hypochromasia Microcytosis Ovalocytes [place] Cells Acanthocytes (Spur) Schistocytes Smear Tech's Comments PT 16.2 H INR 1.4 H APTT 34.9 D-Dimer 1045 ABG pH ABG pCO2 ABG pO2 ABG HCO3 ABG O2 Saturation ABG Base Excess VBG pH VBG pCO2 VBG pO2 VBG HCO3 VBG O2 Saturation VBG Base Excess Oxygen Given Sodium 140 Potassium 4.6 Chloride 103 Carbon Dioxide 29 Anion Gap 13 BUN 52 H Creatinine 0.85 Estim Creat Clear Calc 96.7 Estimated GFR > 60 POC Glucose 128 H Random Glucose 179 H Lactic Acid Calcium 8.3 L Phosphorus 3.8 Magnesium 2.3 Ferritin 542 H Total Bilirubin 0.8 Direct Bilirubin 0.5 AST 30 ALT 21 Alkaline Phosphatase 104 Lactate Dehydrogenase 454 H Total Creatine Kinase 105 Troponin I High Sens C-Reactive Protein 6.57 H B-Natriuretic Peptide Total Protein 6.6 Albumin 2.7 L Procalcitonin TSH Free T4 Free T3 Vancomycin Trough Coronavirus (PCR) COVID-19 (NELLY) COVID-19 Clin Com Influenza Type A (PCR) Influenza Type B (PCR) RSV RNA Qual (PCR) Blood Type Antibody Screen 11/22/20 11/22/20 11/22/20 05:13 05:13 05:22 WBC 13.3 H RBC 4.84 Hgb 12.4 Hct 38.7 MCV 80.0 MCH 25.6 L MCHC 32.0 RDW 16.5 H Plt Count 147 L MPV 9.9 Immature Gran % (Auto) 2.2 H Neut % (Auto) 89.1 H Lymph % (Auto) 6.0 L [place] % (Auto) 2.3 Eos % (Auto) 0.2 Baso % (Auto) 0.2 Lymph # (Auto) 0.8 L [place] # (Auto) 0.3 Eos # (Auto) 0.0 Baso # (Auto) 0.0 Abs Immat Gran (auto) 0.29 H Absolute Neuts (auto) 11.9 H Absolute Nucleated RBC 0.000 Nucleated RBC % (auto) 0.0 Neutrophils % (Manual) Band Neutrophils % Lymphocytes % (Manual) Atypical Lymphs % (Man) Monocytes % (Manual) Eosinophils % (Manual) Basophils % (Manual) Metamyelocytes % Myelocytes % Abs Neuts (Manual) Lymphocytes # (Manual) Atyp Lymphs # (Manual) Monocytes # (Manual) Eosinophils # (Manual) Basophils # (Manual) Metamyelocytes # Myelocytes # Nucleated RBCs Toxic Vacuolation Platelet Estimate Large Platelets Plt Morphology Comment RBC Morphology Polychromasia Hypochromasia Microcytosis Ovalocytes [place] Cells Acanthocytes (Spur) Schistocytes Smear Tech's Comments PT INR APTT D-Dimer ABG pH ABG pCO2 ABG pO2 ABG HCO3 ABG O2 Saturation ABG Base Excess VBG pH 7.42 VBG pCO2 38 VBG pO2 54 VBG HCO3 25 VBG O2 Saturation 84.0 VBG Base Excess 1.3 Oxygen Given Sodium Potassium Chloride Carbon Dioxide Anion Gap BUN Creatinine Estim Creat Clear Calc Estimated GFR POC Glucose Random Glucose Lactic Acid Calcium Phosphorus Magnesium Ferritin Total Bilirubin Direct Bilirubin AST ALT Alkaline Phosphatase Lactate Dehydrogenase Total Creatine Kinase Troponin I High Sens C-Reactive Protein B-Natriuretic Peptide 91 Total Protein Albumin Procalcitonin TSH Free T4 Free T3 Vancomycin Trough Coronavirus (PCR) COVID-19 (NELLY) COVID-19 Clin Com Influenza Type A (PCR) Influenza Type B (PCR) RSV RNA Qual (PCR) Blood Type Antibody Screen 11/22/20 11/22/20 11/22/20 06:26 06:50 07:54 WBC RBC Hgb Hct MCV MCH MCHC RDW Plt Count MPV Immature Gran % (Auto) Neut % (Auto) Lymph % (Auto) [place] % (Auto) Eos % (Auto) Baso % (Auto) Lymph # (Auto) [place] # (Auto) Eos # (Auto) Baso # (Auto) Abs Immat Gran (auto) Absolute Neuts (auto) Absolute Nucleated RBC Nucleated RBC % (auto) Neutrophils % (Manual) Band Neutrophils % Lymphocytes % (Manual) Atypical Lymphs % (Man) Monocytes % (Manual) Eosinophils % (Manual) Basophils % (Manual) Metamyelocytes % Myelocytes % Abs Neuts (Manual) Lymphocytes # (Manual) Atyp Lymphs # (Manual) Monocytes # (Manual) Eosinophils # (Manual) Basophils # (Manual) Metamyelocytes # Myelocytes # Nucleated RBCs Toxic Vacuolation Platelet Estimate Large Platelets Plt Morphology Comment RBC Morphology Polychromasia Hypochromasia Microcytosis Ovalocytes [place] Cells Acanthocytes (Spur) Schistocytes Smear Tech's Comments PT INR APTT D-Dimer ABG pH ABG pCO2 ABG pO2 ABG HCO3 ABG O2 Saturation ABG Base Excess VBG pH VBG pCO2 VBG pO2 VBG HCO3 VBG O2 Saturation VBG Base Excess Oxygen Given Sodium Potassium Chloride Carbon Dioxide Anion Gap BUN Creatinine Estim Creat Clear Calc Estimated GFR POC Glucose 125 H 131 H 163 H Random Glucose Lactic Acid Calcium Phosphorus Magnesium Ferritin Total Bilirubin Direct Bilirubin AST ALT Alkaline Phosphatase Lactate Dehydrogenase Total Creatine Kinase Troponin I High Sens C-Reactive Protein B-Natriuretic Peptide Total Protein Albumin Procalcitonin TSH Free T4 Free T3 Vancomycin Trough Coronavirus (PCR) COVID-19 (NELLY) COVID-19 Clin Com Influenza Type A (PCR) Influenza Type B (PCR) RSV RNA Qual (PCR) Blood Type Antibody Screen 11/22/20 11/22/20 11/22/20 08:51 09:46 10:51 WBC RBC Hgb Hct MCV MCH MCHC RDW Plt Count MPV Immature Gran % (Auto) Neut % (Auto) Lymph % (Auto) [place] % (Auto) Eos % (Auto) Baso % (Auto) Lymph # (Auto) [place] # (Auto) Eos # (Auto) Baso # (Auto) Abs Immat Gran (auto) Absolute Neuts (auto) Absolute Nucleated RBC Nucleated RBC % (auto) Neutrophils % (Manual) Band Neutrophils % Lymphocytes % (Manual) Atypical Lymphs % (Man) Monocytes % (Manual) Eosinophils % (Manual) Basophils % (Manual) Metamyelocytes % Myelocytes % Abs Neuts (Manual) Lymphocytes # (Manual) Atyp Lymphs # (Manual) Monocytes # (Manual) Eosinophils # (Manual) Basophils # (Manual) Metamyelocytes # Myelocytes # Nucleated RBCs Toxic Vacuolation Platelet Estimate Large Platelets Plt Morphology Comment RBC Morphology Polychromasia Hypochromasia Microcytosis Ovalocytes [place] Cells Acanthocytes (Spur) Schistocytes Smear Tech's Comments PT INR APTT D-Dimer ABG pH ABG pCO2 ABG pO2 ABG HCO3 ABG O2 Saturation ABG Base Excess VBG pH VBG pCO2 VBG pO2 VBG HCO3 VBG O2 Saturation VBG Base Excess Oxygen Given Sodium Potassium Chloride Carbon Dioxide Anion Gap BUN Creatinine Estim Creat Clear Calc Estimated GFR POC Glucose 160 H 164 H 164 H Random Glucose Lactic Acid Calcium Phosphorus Magnesium Ferritin Total Bilirubin Direct Bilirubin AST ALT Alkaline Phosphatase Lactate Dehydrogenase Total Creatine Kinase Troponin I High Sens C-Reactive Protein B-Natriuretic Peptide Total Protein Albumin Procalcitonin TSH Free T4 Free T3 Vancomycin Trough Coronavirus (PCR) COVID-19 (NELLY) COVID-19 Clin Com Influenza Type A (PCR) Influenza Type B (PCR) RSV RNA Qual (PCR) Blood Type Antibody Screen 11/22/20 11/22/20 11/22/20 11:44 13:04 13:47 WBC RBC Hgb Hct MCV MCH MCHC RDW Plt Count MPV Immature Gran % (Auto) Neut % (Auto) Lymph % (Auto) [place] % (Auto) Eos % (Auto) Baso % (Auto) Lymph # (Auto) [place] # (Auto) Eos # (Auto) Baso # (Auto) Abs Immat Gran (auto) Absolute Neuts (auto) Absolute Nucleated RBC Nucleated RBC % (auto) Neutrophils % (Manual) Band Neutrophils % Lymphocytes % (Manual) Atypical Lymphs % (Man) Monocytes % (Manual) Eosinophils % (Manual) Basophils % (Manual) Metamyelocytes % Myelocytes % Abs Neuts (Manual) Lymphocytes # (Manual) Atyp Lymphs # (Manual) Monocytes # (Manual) Eosinophils # (Manual) Basophils # (Manual) Metamyelocytes # Myelocytes # Nucleated RBCs Toxic Vacuolation Platelet Estimate Large Platelets Plt Morphology Comment RBC Morphology Polychromasia Hypochromasia Microcytosis Ovalocytes [place] Cells Acanthocytes (Spur) Schistocytes Smear Tech's Comments PT INR APTT D-Dimer ABG pH ABG pCO2 ABG pO2 ABG HCO3 ABG O2 Saturation ABG Base Excess VBG pH VBG pCO2 VBG pO2 VBG HCO3 VBG O2 Saturation VBG Base Excess Oxygen Given Sodium Potassium Chloride Carbon Dioxide Anion Gap BUN Creatinine Estim Creat Clear Calc Estimated GFR POC Glucose 186 H 231 H 238 H Random Glucose Lactic Acid Calcium Phosphorus Magnesium Ferritin Total Bilirubin Direct Bilirubin AST ALT Alkaline Phosphatase Lactate Dehydrogenase Total Creatine Kinase Troponin I High Sens C-Reactive Protein B-Natriuretic Peptide Total Protein Albumin Procalcitonin TSH Free T4 Free T3 Vancomycin Trough Coronavirus (PCR) COVID-19 (NELLY) COVID-19 Clin Com Influenza Type A (PCR) Influenza Type B (PCR) RSV RNA Qual (PCR) Blood Type Antibody Screen 11/22/20 11/22/20 11/22/20 15:07 16:03 17:03 WBC RBC Hgb Hct MCV MCH MCHC RDW Plt Count MPV Immature Gran % (Auto) Neut % (Auto) Lymph % (Auto) [place] % (Auto) Eos % (Auto) Baso % (Auto) Lymph # (Auto) [place] # (Auto) Eos # (Auto) Baso # (Auto) Abs Immat Gran (auto) Absolute Neuts (auto) Absolute Nucleated RBC Nucleated RBC % (auto) Neutrophils % (Manual) Band Neutrophils % Lymphocytes % (Manual) Atypical Lymphs % (Man) Monocytes % (Manual) Eosinophils % (Manual) Basophils % (Manual) Metamyelocytes % Myelocytes % Abs Neuts (Manual) Lymphocytes # (Manual) Atyp Lymphs # (Manual) Monocytes # (Manual) Eosinophils # (Manual) Basophils # (Manual) Metamyelocytes # Myelocytes # Nucleated RBCs Toxic Vacuolation Platelet Estimate Large Platelets Plt Morphology Comment RBC Morphology Polychromasia Hypochromasia Microcytosis Ovalocytes [place] Cells Acanthocytes (Spur) Schistocytes Smear Tech's Comments PT INR APTT D-Dimer ABG pH ABG pCO2 ABG pO2 ABG HCO3 ABG O2 Saturation ABG Base Excess VBG pH VBG pCO2 VBG pO2 VBG HCO3 VBG O2 Saturation VBG Base Excess Oxygen Given Sodium Potassium Chloride Carbon Dioxide Anion Gap BUN Creatinine Estim Creat Clear Calc Estimated GFR POC Glucose 253 H 245 H 218 H Random Glucose Lactic Acid Calcium Phosphorus Magnesium Ferritin Total Bilirubin Direct Bilirubin AST ALT Alkaline Phosphatase Lactate Dehydrogenase Total Creatine Kinase Troponin I High Sens C-Reactive Protein B-Natriuretic Peptide Total Protein Albumin Procalcitonin TSH Free T4 Free T3 Vancomycin Trough Coronavirus (PCR) COVID-19 (NELLY) COVID-19 Clin Com Influenza Type A (PCR) Influenza Type B (PCR) RSV RNA Qual (PCR) Blood Type Antibody Screen 11/22/20 11/22/20 11/22/20 17:55 19:42 22:05 WBC RBC Hgb Hct MCV MCH MCHC RDW Plt Count MPV Immature Gran % (Auto) Neut % (Auto) Lymph % (Auto) [place] % (Auto) Eos % (Auto) Baso % (Auto) Lymph # (Auto) [place] # (Auto) Eos # (Auto) Baso # (Auto) Abs Immat Gran (auto) Absolute Neuts (auto) Absolute Nucleated RBC Nucleated RBC % (auto) Neutrophils % (Manual) Band Neutrophils % Lymphocytes % (Manual) Atypical Lymphs % (Man) Monocytes % (Manual) Eosinophils % (Manual) Basophils % (Manual) Metamyelocytes % Myelocytes % Abs Neuts (Manual) Lymphocytes # (Manual) Atyp Lymphs # (Manual) Monocytes # (Manual) Eosinophils # (Manual) Basophils # (Manual) Metamyelocytes # Myelocytes # Nucleated RBCs Toxic Vacuolation Platelet Estimate Large Platelets Plt Morphology Comment RBC Morphology Polychromasia Hypochromasia Microcytosis Ovalocytes [place] Cells Acanthocytes (Spur) Schistocytes Smear Tech's Comments PT INR APTT D-Dimer ABG pH ABG pCO2 ABG pO2 ABG HCO3 ABG O2 Saturation ABG Base Excess VBG pH VBG pCO2 VBG pO2 VBG HCO3 VBG O2 Saturation VBG Base Excess Oxygen Given Sodium Potassium Chloride Carbon Dioxide Anion Gap BUN Creatinine Estim Creat Clear Calc Estimated GFR POC Glucose 214 H 199 H 157 H Random Glucose Lactic Acid Calcium Phosphorus Magnesium Ferritin Total Bilirubin Direct Bilirubin AST ALT Alkaline Phosphatase Lactate Dehydrogenase Total Creatine Kinase Troponin I High Sens C-Reactive Protein B-Natriuretic Peptide Total Protein Albumin Procalcitonin TSH Free T4 Free T3 Vancomycin Trough Coronavirus (PCR) COVID-19 (NELLY) COVID-19 Clin Com Influenza Type A (PCR) Influenza Type B (PCR) RSV RNA Qual (PCR) Blood Type Antibody Screen 11/22/20 11/23/20 11/23/20 23:24 01:07 04:20 WBC RBC Hgb Hct MCV MCH MCHC RDW Plt Count MPV Immature Gran % (Auto) Neut % (Auto) Lymph % (Auto) [place] % (Auto) Eos % (Auto) Baso % (Auto) Lymph # (Auto) [place] # (Auto) Eos # (Auto) Baso # (Auto) Abs Immat Gran (auto) Absolute Neuts (auto) Absolute Nucleated RBC Nucleated RBC % (auto) Neutrophils % (Manual) Band Neutrophils % Lymphocytes % (Manual) Atypical Lymphs % (Man) Monocytes % (Manual) Eosinophils % (Manual) Basophils % (Manual) Metamyelocytes % Myelocytes % Abs Neuts (Manual) Lymphocytes # (Manual) Atyp Lymphs # (Manual) Monocytes # (Manual) Eosinophils # (Manual) Basophils # (Manual) Metamyelocytes # Myelocytes # Nucleated RBCs Toxic Vacuolation Platelet Estimate Large Platelets Plt Morphology Comment RBC Morphology Polychromasia Hypochromasia Microcytosis Ovalocytes [place] Cells Acanthocytes (Spur) Schistocytes Smear Tech's Comments PT INR APTT D-Dimer ABG pH ABG pCO2 ABG pO2 ABG HCO3 ABG O2 Saturation ABG Base Excess VBG pH VBG pCO2 VBG pO2 VBG HCO3 VBG O2 Saturation VBG Base Excess Oxygen Given Sodium Potassium Chloride Carbon Dioxide Anion Gap BUN Creatinine Estim Creat Clear Calc Estimated GFR POC Glucose 149 H 175 H 157 H Random Glucose Lactic Acid Calcium Phosphorus Magnesium Ferritin Total Bilirubin Direct Bilirubin AST ALT Alkaline Phosphatase Lactate Dehydrogenase Total Creatine Kinase Troponin I High Sens C-Reactive Protein B-Natriuretic Peptide Total Protein Albumin Procalcitonin TSH Free T4 Free T3 Vancomycin Trough Coronavirus (PCR) COVID-19 (NELLY) COVID-19 Clin Com Influenza Type A (PCR) Influenza Type B (PCR) RSV RNA Qual (PCR) Blood Type Antibody Screen 11/23/20 11/23/20 11/23/20 04:21 04:21 04:21 WBC RBC Hgb Hct MCV MCH MCHC RDW Plt Count MPV Immature Gran % (Auto) Neut % (Auto) Lymph % (Auto) [place] % (Auto) Eos % (Auto) Baso % (Auto) Lymph # (Auto) [place] # (Auto) Eos # (Auto) Baso # (Auto) Abs Immat Gran (auto) Absolute Neuts (auto) Absolute Nucleated RBC Nucleated RBC % (auto) Neutrophils % (Manual) Band Neutrophils % Lymphocytes % (Manual) Atypical Lymphs % (Man) Monocytes % (Manual) Eosinophils % (Manual) Basophils % (Manual) Metamyelocytes % Myelocytes % Abs Neuts (Manual) Lymphocytes # (Manual) Atyp Lymphs # (Manual) Monocytes # (Manual) Eosinophils # (Manual) Basophils # (Manual) Metamyelocytes # Myelocytes # Nucleated RBCs Toxic Vacuolation Platelet Estimate Large Platelets Plt Morphology Comment RBC Morphology Polychromasia Hypochromasia Microcytosis Ovalocytes [place] Cells Acanthocytes (Spur) Schistocytes Smear Tech's Comments PT 18.6 H INR 1.6 H APTT 35.2 D-Dimer 916 ABG pH ABG pCO2 ABG pO2 ABG HCO3 ABG O2 Saturation ABG Base Excess VBG pH VBG pCO2 VBG pO2 VBG HCO3 VBG O2 Saturation VBG Base Excess Oxygen Given Sodium 138 Potassium 4.3 Chloride 104 Carbon Dioxide 26 Anion Gap 11 L BUN 51 H Creatinine 0.96 Estim Creat Clear Calc 85.7 Estimated GFR 58 POC Glucose Random Glucose 192 H Lactic Acid Calcium 7.9 L Phosphorus 4.9 H Magnesium 2.3 Ferritin 793 H Total Bilirubin 0.8 Direct Bilirubin 0.6 H AST 26 ALT 20 Alkaline Phosphatase 84 Lactate Dehydrogenase 380 H Total Creatine Kinase 144 H D Troponin I High Sens C-Reactive Protein 20.55 H B-Natriuretic Peptide 88 Total Protein 5.8 L Albumin 2.5 L Procalcitonin TSH Free T4 Free T3 Vancomycin Trough Coronavirus (PCR) COVID-19 (NELLY) COVID-19 Clin Com Influenza Type A (PCR) Influenza Type B (PCR) RSV RNA Qual (PCR) Blood Type Antibody Screen 11/23/20 11/23/20 11/23/20 04:21 04:30 06:02 WBC 13.8 H RBC 4.28 Hgb 11.0 L Hct 34.9 L MCV 81.5 MCH 25.7 L MCHC 31.5 RDW 16.6 H Plt Count 129 L MPV 10.2 Immature Gran % (Auto) 2.1 H Neut % (Auto) 88.8 H Lymph % (Auto) 5.7 L [place] % (Auto) 2.9 Eos % (Auto) 0.4 Baso % (Auto) 0.1 Lymph # (Auto) 0.8 L [place] # (Auto) 0.4 Eos # (Auto) 0.1 Baso # (Auto) 0.0 Abs Immat Gran (auto) 0.29 H Absolute Neuts (auto) 12.2 H Absolute Nucleated RBC 0.000 Nucleated RBC % (auto) 0.0 Neutrophils % (Manual) Band Neutrophils % Lymphocytes % (Manual) Atypical Lymphs % (Man) Monocytes % (Manual) Eosinophils % (Manual) Basophils % (Manual) Metamyelocytes % Myelocytes % Abs Neuts (Manual) Lymphocytes # (Manual) Atyp Lymphs # (Manual) Monocytes # (Manual) Eosinophils # (Manual) Basophils # (Manual) Metamyelocytes # Myelocytes # Nucleated RBCs Toxic Vacuolation Platelet Estimate Large Platelets Plt Morphology Comment RBC Morphology Polychromasia Hypochromasia Microcytosis Ovalocytes [place] Cells Acanthocytes (Spur) Schistocytes Smear Tech's Comments VERIFIED PT INR APTT D-Dimer ABG pH ABG pCO2 ABG pO2 ABG HCO3 ABG O2 Saturation ABG Base Excess VBG pH 7.40 VBG pCO2 38 VBG pO2 60 VBG HCO3 24 VBG O2 Saturation 88.0 VBG Base Excess -0.4 Oxygen Given Sodium Potassium Chloride Carbon Dioxide Anion Gap BUN Creatinine Estim Creat Clear Calc Estimated GFR POC Glucose 158 H Random Glucose Lactic Acid Calcium Phosphorus Magnesium Ferritin Total Bilirubin Direct Bilirubin AST ALT Alkaline Phosphatase Lactate Dehydrogenase Total Creatine Kinase Troponin I High Sens C-Reactive Protein B-Natriuretic Peptide Total Protein Albumin Procalcitonin TSH Free T4 Free T3 Vancomycin Trough Coronavirus (PCR) COVID-19 (NELLY) COVID-19 Clin Com Influenza Type A (PCR) Influenza Type B (PCR) RSV RNA Qual (PCR) Blood Type Antibody Screen 11/23/20 11/23/20 11/23/20 07:19 08:57 11:06 WBC RBC Hgb Hct MCV MCH MCHC RDW Plt Count MPV Immature Gran % (Auto) Neut % (Auto) Lymph % (Auto) [place] % (Auto) Eos % (Auto) Baso % (Auto) Lymph # (Auto) [place] # (Auto) Eos # (Auto) Baso # (Auto) Abs Immat Gran (auto) Absolute Neuts (auto) Absolute Nucleated RBC Nucleated RBC % (auto) Neutrophils % (Manual) Band Neutrophils % Lymphocytes % (Manual) Atypical Lymphs % (Man) Monocytes % (Manual) Eosinophils % (Manual) Basophils % (Manual) Metamyelocytes % Myelocytes % Abs Neuts (Manual) Lymphocytes # (Manual) Atyp Lymphs # (Manual) Monocytes # (Manual) Eosinophils # (Manual) Basophils # (Manual) Metamyelocytes # Myelocytes # Nucleated RBCs Toxic Vacuolation Platelet Estimate Large Platelets Plt Morphology Comment RBC Morphology Polychromasia Hypochromasia Microcytosis Ovalocytes [place] Cells Acanthocytes (Spur) Schistocytes Smear Tech's Comments PT INR APTT D-Dimer ABG pH ABG pCO2 ABG pO2 ABG HCO3 ABG O2 Saturation ABG Base Excess VBG pH VBG pCO2 VBG pO2 VBG HCO3 VBG O2 Saturation VBG Base Excess Oxygen Given Sodium Potassium Chloride Carbon Dioxide Anion Gap BUN Creatinine Estim Creat Clear Calc Estimated GFR POC Glucose 148 H 158 H 150 H Random Glucose Lactic Acid Calcium Phosphorus Magnesium Ferritin Total Bilirubin Direct Bilirubin AST ALT Alkaline Phosphatase Lactate Dehydrogenase Total Creatine Kinase Troponin I High Sens C-Reactive Protein B-Natriuretic Peptide Total Protein Albumin Procalcitonin TSH Free T4 Free T3 Vancomycin Trough Coronavirus (PCR) COVID-19 (NELLY) COVID-19 Clin Com Influenza Type A (PCR) Influenza Type B (PCR) RSV RNA Qual (PCR) Blood Type Antibody Screen 11/23/20 11/23/20 11/23/20 12:52 14:50 17:08 WBC RBC Hgb Hct MCV MCH MCHC RDW Plt Count MPV Immature Gran % (Auto) Neut % (Auto) Lymph % (Auto) [place] % (Auto) Eos % (Auto) Baso % (Auto) Lymph # (Auto) [place] # (Auto) Eos # (Auto) Baso # (Auto) Abs Immat Gran (auto) Absolute Neuts (auto) Absolute Nucleated RBC Nucleated RBC % (auto) Neutrophils % (Manual) Band Neutrophils % Lymphocytes % (Manual) Atypical Lymphs % (Man) Monocytes % (Manual) Eosinophils % (Manual) Basophils % (Manual) Metamyelocytes % Myelocytes % Abs Neuts (Manual) Lymphocytes # (Manual) Atyp Lymphs # (Manual) Monocytes # (Manual) Eosinophils # (Manual) Basophils # (Manual) Metamyelocytes # Myelocytes # Nucleated RBCs Toxic Vacuolation Platelet Estimate Large Platelets Plt Morphology Comment RBC Morphology Polychromasia Hypochromasia Microcytosis Ovalocytes [place] Cells Acanthocytes (Spur) Schistocytes Smear Tech's Comments PT INR APTT D-Dimer ABG pH ABG pCO2 ABG pO2 ABG HCO3 ABG O2 Saturation ABG Base Excess VBG pH VBG pCO2 VBG pO2 VBG HCO3 VBG O2 Saturation VBG Base Excess Oxygen Given Sodium Potassium Chloride Carbon Dioxide Anion Gap BUN Creatinine Estim Creat Clear Calc Estimated GFR POC Glucose 146 H 172 H 209 H Random Glucose Lactic Acid Calcium Phosphorus Magnesium Ferritin Total Bilirubin Direct Bilirubin AST ALT Alkaline Phosphatase Lactate Dehydrogenase Total Creatine Kinase Troponin I High Sens C-Reactive Protein B-Natriuretic Peptide Total Protein Albumin Procalcitonin TSH Free T4 Free T3 Vancomycin Trough Coronavirus (PCR) COVID-19 (NELLY) COVID-19 Clin Com Influenza Type A (PCR) Influenza Type B (PCR) RSV RNA Qual (PCR) Blood Type Antibody Screen 11/23/20 11/23/20 11/23/20 19:18 20:56 23:05 WBC RBC Hgb Hct MCV MCH MCHC RDW Plt Count MPV Immature Gran % (Auto) Neut % (Auto) Lymph % (Auto) [place] % (Auto) Eos % (Auto) Baso % (Auto) Lymph # (Auto) [place] # (Auto) Eos # (Auto) Baso # (Auto) Abs Immat Gran (auto) Absolute Neuts (auto) Absolute Nucleated RBC Nucleated RBC % (auto) Neutrophils % (Manual) Band Neutrophils % Lymphocytes % (Manual) Atypical Lymphs % (Man) Monocytes % (Manual) Eosinophils % (Manual) Basophils % (Manual) Metamyelocytes % Myelocytes % Abs Neuts (Manual) Lymphocytes # (Manual) Atyp Lymphs # (Manual) Monocytes # (Manual) Eosinophils # (Manual) Basophils # (Manual) Metamyelocytes # Myelocytes # Nucleated RBCs Toxic Vacuolation Platelet Estimate Large Platelets Plt Morphology Comment RBC Morphology Polychromasia Hypochromasia Microcytosis Ovalocytes [place] Cells Acanthocytes (Spur) Schistocytes Smear Tech's Comments PT INR APTT D-Dimer ABG pH ABG pCO2 ABG pO2 ABG HCO3 ABG O2 Saturation ABG Base Excess VBG pH VBG pCO2 VBG pO2 VBG HCO3 VBG O2 Saturation VBG Base Excess Oxygen Given Sodium Potassium Chloride Carbon Dioxide Anion Gap BUN Creatinine Estim Creat Clear Calc Estimated GFR POC Glucose 247 H 205 H 156 H Random Glucose Lactic Acid Calcium Phosphorus Magnesium Ferritin Total Bilirubin Direct Bilirubin AST ALT Alkaline Phosphatase Lactate Dehydrogenase Total Creatine Kinase Troponin I High Sens C-Reactive Protein B-Natriuretic Peptide Total Protein Albumin Procalcitonin TSH Free T4 Free T3 Vancomycin Trough Coronavirus (PCR) COVID-19 (NELLY) COVID-19 Clin Com Influenza Type A (PCR) Influenza Type B (PCR) RSV RNA Qual (PCR) Blood Type Antibody Screen 11/24/20 11/24/20 11/24/20 00:13 03:02 05:05 WBC RBC Hgb Hct MCV MCH MCHC RDW Plt Count MPV Immature Gran % (Auto) Neut % (Auto) Lymph % (Auto) [place] % (Auto) Eos % (Auto) Baso % (Auto) Lymph # (Auto) [place] # (Auto) Eos # (Auto) Baso # (Auto) Abs Immat Gran (auto) Absolute Neuts (auto) Absolute Nucleated RBC Nucleated RBC % (auto) Neutrophils % (Manual) Band Neutrophils % Lymphocytes % (Manual) Atypical Lymphs % (Man) Monocytes % (Manual) Eosinophils % (Manual) Basophils % (Manual) Metamyelocytes % Myelocytes % Abs Neuts (Manual) Lymphocytes # (Manual) Atyp Lymphs # (Manual) Monocytes # (Manual) Eosinophils # (Manual) Basophils # (Manual) Metamyelocytes # Myelocytes # Nucleated RBCs Toxic Vacuolation Platelet Estimate Large Platelets Plt Morphology Comment RBC Morphology Polychromasia Hypochromasia Microcytosis Ovalocytes [place] Cells Acanthocytes (Spur) Schistocytes Smear Tech's Comments PT INR APTT D-Dimer ABG pH ABG pCO2 ABG pO2 ABG HCO3 ABG O2 Saturation ABG Base Excess VBG pH VBG pCO2 VBG pO2 VBG HCO3 VBG O2 Saturation VBG Base Excess Oxygen Given Sodium Potassium Chloride Carbon Dioxide Anion Gap BUN Creatinine Estim Creat Clear Calc Estimated GFR POC Glucose 154 H 175 H 177 H Random Glucose Lactic Acid Calcium Phosphorus Magnesium Ferritin Total Bilirubin Direct Bilirubin AST ALT Alkaline Phosphatase Lactate Dehydrogenase Total Creatine Kinase Troponin I High Sens C-Reactive Protein B-Natriuretic Peptide Total Protein Albumin Procalcitonin TSH Free T4 Free T3 Vancomycin Trough Coronavirus (PCR) COVID-19 (NELLY) COVID-19 Clin Com Influenza Type A (PCR) Influenza Type B (PCR) RSV RNA Qual (PCR) Blood Type Antibody Screen 11/24/20 11/24/20 11/24/20 05:35 05:35 05:35 WBC RBC Hgb Hct MCV MCH MCHC RDW Plt Count MPV Immature Gran % (Auto) Neut % (Auto) Lymph % (Auto) [place] % (Auto) Eos % (Auto) Baso % (Auto) Lymph # (Auto) [place] # (Auto) Eos # (Auto) Baso # (Auto) Abs Immat Gran (auto) Absolute Neuts (auto) Absolute Nucleated RBC Nucleated RBC % (auto) Neutrophils % (Manual) Band Neutrophils % Lymphocytes % (Manual) Atypical Lymphs % (Man) Monocytes % (Manual) Eosinophils % (Manual) Basophils % (Manual) Metamyelocytes % Myelocytes % Abs Neuts (Manual) Lymphocytes # (Manual) Atyp Lymphs # (Manual) Monocytes # (Manual) Eosinophils # (Manual) Basophils # (Manual) Metamyelocytes # Myelocytes # Nucleated RBCs Toxic Vacuolation Platelet Estimate Large Platelets Plt Morphology Comment RBC Morphology Polychromasia Hypochromasia Microcytosis Ovalocytes [place] Cells Acanthocytes (Spur) Schistocytes Smear Tech's Comments PT 16.6 H INR 1.4 H APTT 36.0 D-Dimer ABG pH ABG pCO2 ABG pO2 ABG HCO3 ABG O2 Saturation ABG Base Excess VBG pH VBG pCO2 VBG pO2 VBG HCO3 VBG O2 Saturation VBG Base Excess Oxygen Given Sodium 138 Potassium 4.6 Chloride 103 Carbon Dioxide 26 Anion Gap 14 BUN 45 H Creatinine 0.92 Estim Creat Clear Calc 89.3 Estimated GFR > 60 POC Glucose Random Glucose 228 H Lactic Acid Calcium 8.0 L Phosphorus 4.8 H Magnesium 2.2 Ferritin 699 H Total Bilirubin 0.7 Direct Bilirubin 0.6 H AST 22 ALT 18 Alkaline Phosphatase 83 Lactate Dehydrogenase 385 H Total Creatine Kinase 86 D Troponin I High Sens C-Reactive Protein 18.08 H B-Natriuretic Peptide 133 H Total Protein 6.1 L Albumin 2.5 L Procalcitonin TSH Free T4 Free T3 Vancomycin Trough Coronavirus (PCR) COVID-19 (NELLY) COVID-19 Clin Com Influenza Type A (PCR) Influenza Type B (PCR) RSV RNA Qual (PCR) Blood Type Antibody Screen 11/24/20 11/24/20 11/24/20 05:35 07:29 09:27 WBC 9.6 RBC 4.24 Hgb 11.0 L Hct 34.5 L MCV 81.4 MCH 25.9 L MCHC 31.9 RDW 16.7 H Plt Count 144 L MPV 10.5 Immature Gran % (Auto) Cancelled Neut % (Auto) Cancelled Lymph % (Auto) Cancelled [place] % (Auto) Cancelled Eos % (Auto) Cancelled Baso % (Auto) Cancelled Lymph # (Auto) Cancelled [place] # (Auto) Cancelled Eos # (Auto) Cancelled Baso # (Auto) Cancelled Abs Immat Gran (auto) Cancelled Absolute Neuts (auto) Cancelled Absolute Nucleated RBC 0.000 Nucleated RBC % (auto) 0.0 Neutrophils % (Manual) 89 H Band Neutrophils % 4 Lymphocytes % (Manual) 3 L Atypical Lymphs % (Man) Monocytes % (Manual) 1 L Eosinophils % (Manual) 3 Basophils % (Manual) Metamyelocytes % Myelocytes % Abs Neuts (Manual) 8.9 H Lymphocytes # (Manual) 0.3 L Atyp Lymphs # (Manual) Monocytes # (Manual) 0.1 Eosinophils # (Manual) 0.3 Basophils # (Manual) Metamyelocytes # Myelocytes # Nucleated RBCs Toxic Vacuolation Platelet Estimate SLIGHTLY DECREASED Large Platelets Plt Morphology Comment NORMAL RBC Morphology NOTED Polychromasia Hypochromasia 1+ Microcytosis Ovalocytes [place] Cells 1+ Acanthocytes (Spur) Schistocytes Smear Tech's Comments PT INR APTT D-Dimer ABG pH ABG pCO2 ABG pO2 ABG HCO3 ABG O2 Saturation ABG Base Excess VBG pH VBG pCO2 VBG pO2 VBG HCO3 VBG O2 Saturation VBG Base Excess Oxygen Given Sodium Potassium Chloride Carbon Dioxide Anion Gap BUN Creatinine Estim Creat Clear Calc Estimated GFR POC Glucose 179 H 173 H Random Glucose Lactic Acid Calcium Phosphorus Magnesium Ferritin Total Bilirubin Direct Bilirubin AST ALT Alkaline Phosphatase Lactate Dehydrogenase Total Creatine Kinase Troponin I High Sens C-Reactive Protein B-Natriuretic Peptide Total Protein Albumin Procalcitonin TSH Free T4 Free T3 Vancomycin Trough Coronavirus (PCR) COVID-19 (NELLY) COVID-19 Clin Com Influenza Type A (PCR) Influenza Type B (PCR) RSV RNA Qual (PCR) Blood Type Antibody Screen 11/24/20 11/24/20 11/24/20 10:13 13:05 15:12 WBC RBC Hgb Hct MCV MCH MCHC RDW Plt Count MPV Immature Gran % (Auto) Neut % (Auto) Lymph % (Auto) [place] % (Auto) Eos % (Auto) Baso % (Auto) Lymph # (Auto) [place] # (Auto) Eos # (Auto) Baso # (Auto) Abs Immat Gran (auto) Absolute Neuts (auto) Absolute Nucleated RBC Nucleated RBC % (auto) Neutrophils % (Manual) Band Neutrophils % Lymphocytes % (Manual) Atypical Lymphs % (Man) Monocytes % (Manual) Eosinophils % (Manual) Basophils % (Manual) Metamyelocytes % Myelocytes % Abs Neuts (Manual) Lymphocytes # (Manual) Atyp Lymphs # (Manual) Monocytes # (Manual) Eosinophils # (Manual) Basophils # (Manual) Metamyelocytes # Myelocytes # Nucleated RBCs Toxic Vacuolation Platelet Estimate Large Platelets Plt Morphology Comment RBC Morphology Polychromasia Hypochromasia Microcytosis Ovalocytes [place] Cells Acanthocytes (Spur) Schistocytes Smear Tech's Comments PT INR APTT D-Dimer ABG pH ABG pCO2 ABG pO2 ABG HCO3 ABG O2 Saturation ABG Base Excess VBG pH VBG pCO2 VBG pO2 VBG HCO3 VBG O2 Saturation VBG Base Excess Oxygen Given Sodium Potassium Chloride Carbon Dioxide Anion Gap BUN Creatinine Estim Creat Clear Calc Estimated GFR POC Glucose 141 H 112 153 H Random Glucose Lactic Acid Calcium Phosphorus Magnesium Ferritin Total Bilirubin Direct Bilirubin AST ALT Alkaline Phosphatase Lactate Dehydrogenase Total Creatine Kinase Troponin I High Sens C-Reactive Protein B-Natriuretic Peptide Total Protein Albumin Procalcitonin TSH Free T4 Free T3 Vancomycin Trough Coronavirus (PCR) COVID-19 (NELLY) COVID-19 Clin Com Influenza Type A (PCR) Influenza Type B (PCR) RSV RNA Qual (PCR) Blood Type Antibody Screen 11/24/20 11/24/20 11/24/20 16:00 18:50 20:40 WBC RBC Hgb Hct MCV MCH MCHC RDW Plt Count MPV Immature Gran % (Auto) Neut % (Auto) Lymph % (Auto) [place] % (Auto) Eos % (Auto) Baso % (Auto) Lymph # (Auto) [place] # (Auto) Eos # (Auto) Baso # (Auto) Abs Immat Gran (auto) Absolute Neuts (auto) Absolute Nucleated RBC Nucleated RBC % (auto) Neutrophils % (Manual) Band Neutrophils % Lymphocytes % (Manual) Atypical Lymphs % (Man) Monocytes % (Manual) Eosinophils % (Manual) Basophils % (Manual) Metamyelocytes % Myelocytes % Abs Neuts (Manual) Lymphocytes # (Manual) Atyp Lymphs # (Manual) Monocytes # (Manual) Eosinophils # (Manual) Basophils # (Manual) Metamyelocytes # Myelocytes # Nucleated RBCs Toxic Vacuolation Platelet Estimate Large Platelets Plt Morphology Comment RBC Morphology Polychromasia Hypochromasia Microcytosis Ovalocytes [place] Cells Acanthocytes (Spur) Schistocytes Smear Tech's Comments PT INR APTT D-Dimer ABG pH ABG pCO2 ABG pO2 ABG HCO3 ABG O2 Saturation ABG Base Excess VBG pH VBG pCO2 VBG pO2 VBG HCO3 VBG O2 Saturation VBG Base Excess Oxygen Given Sodium Potassium Chloride Carbon Dioxide Anion Gap BUN Creatinine Estim Creat Clear Calc Estimated GFR POC Glucose 136 H 174 H 187 H Random Glucose Lactic Acid Calcium Phosphorus Magnesium Ferritin Total Bilirubin Direct Bilirubin AST ALT Alkaline Phosphatase Lactate Dehydrogenase Total Creatine Kinase Troponin I High Sens C-Reactive Protein B-Natriuretic Peptide Total Protein Albumin Procalcitonin TSH Free T4 Free T3 Vancomycin Trough Coronavirus (PCR) COVID-19 (NELLY) COVID-19 Clin Com Influenza Type A (PCR) Influenza Type B (PCR) RSV RNA Qual (PCR) Blood Type Antibody Screen 11/24/20 11/25/20 11/25/20 22:12 00:19 01:51 WBC RBC Hgb Hct MCV MCH MCHC RDW Plt Count MPV Immature Gran % (Auto) Neut % (Auto) Lymph % (Auto) [place] % (Auto) Eos % (Auto) Baso % (Auto) Lymph # (Auto) [place] # (Auto) Eos # (Auto) Baso # (Auto) Abs Immat Gran (auto) Absolute Neuts (auto) Absolute Nucleated RBC Nucleated RBC % (auto) Neutrophils % (Manual) Band Neutrophils % Lymphocytes % (Manual) Atypical Lymphs % (Man) Monocytes % (Manual) Eosinophils % (Manual) Basophils % (Manual) Metamyelocytes % Myelocytes % Abs Neuts (Manual) Lymphocytes # (Manual) Atyp Lymphs # (Manual) Monocytes # (Manual) Eosinophils # (Manual) Basophils # (Manual) Metamyelocytes # Myelocytes # Nucleated RBCs Toxic Vacuolation Platelet Estimate Large Platelets Plt Morphology Comment RBC Morphology Polychromasia Hypochromasia Microcytosis Ovalocytes [place] Cells Acanthocytes (Spur) Schistocytes Smear Tech's Comments PT INR APTT D-Dimer ABG pH ABG pCO2 ABG pO2 ABG HCO3 ABG O2 Saturation ABG Base Excess VBG pH VBG pCO2 VBG pO2 VBG HCO3 VBG O2 Saturation VBG Base Excess Oxygen Given Sodium Potassium Chloride Carbon Dioxide Anion Gap BUN Creatinine Estim Creat Clear Calc Estimated GFR POC Glucose 162 H 146 H 134 H Random Glucose Lactic Acid Calcium Phosphorus Magnesium Ferritin Total Bilirubin Direct Bilirubin AST ALT Alkaline Phosphatase Lactate Dehydrogenase Total Creatine Kinase Troponin I High Sens C-Reactive Protein B-Natriuretic Peptide Total Protein Albumin Procalcitonin TSH Free T4 Free T3 Vancomycin Trough Coronavirus (PCR) COVID-19 (NELLY) COVID-19 Clin Com Influenza Type A (PCR) Influenza Type B (PCR) RSV RNA Qual (PCR) Blood Type Antibody Screen 11/25/20 11/25/20 11/25/20 04:14 05:20 05:20 WBC 9.1 RBC 3.96 L Hgb 10.0 L Hct 32.4 L MCV 81.8 MCH 25.3 L MCHC 30.9 L RDW 16.6 H Plt Count 146 L MPV 10.0 Immature Gran % (Auto) 3.4 H Neut % (Auto) 82.6 H Lymph % (Auto) 7.2 L [place] % (Auto) 3.2 Eos % (Auto) 3.3 Baso % (Auto) 0.3 Lymph # (Auto) 0.7 L [place] # (Auto) 0.3 Eos # (Auto) 0.3 Baso # (Auto) 0.0 Abs Immat Gran (auto) 0.31 H Absolute Neuts (auto) 7.5 Absolute Nucleated RBC 0.000 Nucleated RBC % (auto) 0.0 Neutrophils % (Manual) Band Neutrophils % Lymphocytes % (Manual) Atypical Lymphs % (Man) Monocytes % (Manual) Eosinophils % (Manual) Basophils % (Manual) Metamyelocytes % Myelocytes % Abs Neuts (Manual) Lymphocytes # (Manual) Atyp Lymphs # (Manual) Monocytes # (Manual) Eosinophils # (Manual) Basophils # (Manual) Metamyelocytes # Myelocytes # Nucleated RBCs Toxic Vacuolation Platelet Estimate Large Platelets Plt Morphology Comment RBC Morphology Polychromasia Hypochromasia Microcytosis Ovalocytes [place] Cells Acanthocytes (Spur) Schistocytes Smear Tech's Comments VERIFIED PT INR APTT D-Dimer ABG pH ABG pCO2 ABG pO2 ABG HCO3 ABG O2 Saturation ABG Base Excess VBG pH VBG pCO2 VBG pO2 VBG HCO3 VBG O2 Saturation VBG Base Excess Oxygen Given Sodium 141 Potassium 3.8 Chloride 104 Carbon Dioxide 26 Anion Gap 15 BUN 43 H Creatinine 0.88 Estim Creat Clear Calc 93.4 Estimated GFR > 60 POC Glucose 127 H Random Glucose 159 H Lactic Acid Calcium 8.4 Phosphorus 5.0 H Magnesium 1.9 Ferritin Total Bilirubin Direct Bilirubin AST ALT Alkaline Phosphatase Lactate Dehydrogenase Total Creatine Kinase Troponin I High Sens C-Reactive Protein B-Natriuretic Peptide Total Protein Albumin 3.4 L D Procalcitonin TSH Free T4 Free T3 Vancomycin Trough Coronavirus (PCR) COVID-19 (NELLY) COVID-19 Clin Com Influenza Type A (PCR) Influenza Type B (PCR) RSV RNA Qual (PCR) Blood Type Antibody Screen 11/25/20 11/25/20 11/25/20 05:32 06:07 07:08 WBC RBC Hgb Hct MCV MCH MCHC RDW Plt Count MPV Immature Gran % (Auto) Neut % (Auto) Lymph % (Auto) [place] % (Auto) Eos % (Auto) Baso % (Auto) Lymph # (Auto) [place] # (Auto) Eos # (Auto) Baso # (Auto) Abs Immat Gran (auto) Absolute Neuts (auto) Absolute Nucleated RBC Nucleated RBC % (auto) Neutrophils % (Manual) Band Neutrophils % Lymphocytes % (Manual) Atypical Lymphs % (Man) Monocytes % (Manual) Eosinophils % (Manual) Basophils % (Manual) Metamyelocytes % Myelocytes % Abs Neuts (Manual) Lymphocytes # (Manual) Atyp Lymphs # (Manual) Monocytes # (Manual) Eosinophils # (Manual) Basophils # (Manual) Metamyelocytes # Myelocytes # Nucleated RBCs Toxic Vacuolation Platelet Estimate Large Platelets Plt Morphology Comment RBC Morphology Polychromasia Hypochromasia Microcytosis Ovalocytes [place] Cells Acanthocytes (Spur) Schistocytes Smear Tech's Comments PT INR APTT D-Dimer ABG pH ABG pCO2 ABG pO2 ABG HCO3 ABG O2 Saturation ABG Base Excess VBG pH 7.41 VBG pCO2 39 VBG pO2 61 VBG HCO3 25 VBG O2 Saturation 89.0 VBG Base Excess 1.3 Oxygen Given Sodium Potassium Chloride Carbon Dioxide Anion Gap BUN Creatinine Estim Creat Clear Calc Estimated GFR POC Glucose 134 H 142 H Random Glucose Lactic Acid Calcium Phosphorus Magnesium Ferritin Total Bilirubin Direct Bilirubin AST ALT Alkaline Phosphatase Lactate Dehydrogenase Total Creatine Kinase Troponin I High Sens C-Reactive Protein B-Natriuretic Peptide Total Protein Albumin Procalcitonin TSH Free T4 Free T3 Vancomycin Trough Coronavirus (PCR) COVID-19 (NELLY) COVID-19 Clin Com Influenza Type A (PCR) Influenza Type B (PCR) RSV RNA Qual (PCR) Blood Type Antibody Screen 11/25/20 11/25/20 11/25/20 09:05 10:54 12:54 WBC RBC Hgb Hct MCV MCH MCHC RDW Plt Count MPV Immature Gran % (Auto) Neut % (Auto) Lymph % (Auto) [place] % (Auto) Eos % (Auto) Baso % (Auto) Lymph # (Auto) [place] # (Auto) Eos # (Auto) Baso # (Auto) Abs Immat Gran (auto) Absolute Neuts (auto) Absolute Nucleated RBC Nucleated RBC % (auto) Neutrophils % (Manual) Band Neutrophils % Lymphocytes % (Manual) Atypical Lymphs % (Man) Monocytes % (Manual) Eosinophils % (Manual) Basophils % (Manual) Metamyelocytes % Myelocytes % Abs Neuts (Manual) Lymphocytes # (Manual) Atyp Lymphs # (Manual) Monocytes # (Manual) Eosinophils # (Manual) Basophils # (Manual) Metamyelocytes # Myelocytes # Nucleated RBCs Toxic Vacuolation Platelet Estimate Large Platelets Plt Morphology Comment RBC Morphology Polychromasia Hypochromasia Microcytosis Ovalocytes [place] Cells Acanthocytes (Spur) Schistocytes Smear Tech's Comments PT INR APTT D-Dimer ABG pH ABG pCO2 ABG pO2 ABG HCO3 ABG O2 Saturation ABG Base Excess VBG pH VBG pCO2 VBG pO2 VBG HCO3 VBG O2 Saturation VBG Base Excess Oxygen Given Sodium Potassium Chloride Carbon Dioxide Anion Gap BUN Creatinine Estim Creat Clear Calc Estimated GFR POC Glucose 170 H 175 H 129 H Random Glucose Lactic Acid Calcium Phosphorus Magnesium Ferritin Total Bilirubin Direct Bilirubin AST ALT Alkaline Phosphatase Lactate Dehydrogenase Total Creatine Kinase Troponin I High Sens C-Reactive Protein B-Natriuretic Peptide Total Protein Albumin Procalcitonin TSH Free T4 Free T3 Vancomycin Trough Coronavirus (PCR) COVID-19 (NELLY) COVID-19 Clin Com Influenza Type A (PCR) Influenza Type B (PCR) RSV RNA Qual (PCR) Blood Type Antibody Screen 11/25/20 11/25/20 11/25/20 15:17 17:07 18:54 WBC RBC Hgb Hct MCV MCH MCHC RDW Plt Count MPV Immature Gran % (Auto) Neut % (Auto) Lymph % (Auto) [place] % (Auto) Eos % (Auto) Baso % (Auto) Lymph # (Auto) [place] # (Auto) Eos # (Auto) Baso # (Auto) Abs Immat Gran (auto) Absolute Neuts (auto) Absolute Nucleated RBC Nucleated RBC % (auto) Neutrophils % (Manual) Band Neutrophils % Lymphocytes % (Manual) Atypical Lymphs % (Man) Monocytes % (Manual) Eosinophils % (Manual) Basophils % (Manual) Metamyelocytes % Myelocytes % Abs Neuts (Manual) Lymphocytes # (Manual) Atyp Lymphs # (Manual) Monocytes # (Manual) Eosinophils # (Manual) Basophils # (Manual) Metamyelocytes # Myelocytes # Nucleated RBCs Toxic Vacuolation Platelet Estimate Large Platelets Plt Morphology Comment RBC Morphology Polychromasia Hypochromasia Microcytosis Ovalocytes [place] Cells Acanthocytes (Spur) Schistocytes Smear Tech's Comments PT INR APTT D-Dimer ABG pH ABG pCO2 ABG pO2 ABG HCO3 ABG O2 Saturation ABG Base Excess VBG pH VBG pCO2 VBG pO2 VBG HCO3 VBG O2 Saturation VBG Base Excess Oxygen Given Sodium Potassium Chloride Carbon Dioxide Anion Gap BUN Creatinine Estim Creat Clear Calc Estimated GFR POC Glucose 156 H 201 H 221 H Random Glucose Lactic Acid Calcium Phosphorus Magnesium Ferritin Total Bilirubin Direct Bilirubin AST ALT Alkaline Phosphatase Lactate Dehydrogenase Total Creatine Kinase Troponin I High Sens C-Reactive Protein B-Natriuretic Peptide Total Protein Albumin Procalcitonin TSH Free T4 Free T3 Vancomycin Trough Coronavirus (PCR) COVID-19 (NELLY) COVID-19 Clin Com Influenza Type A (PCR) Influenza Type B (PCR) RSV RNA Qual (PCR) Blood Type Antibody Screen 11/25/20 11/25/20 11/26/20 20:58 22:28 01:15 WBC RBC Hgb Hct MCV MCH MCHC RDW Plt Count MPV Immature Gran % (Auto) Neut % (Auto) Lymph % (Auto) [place] % (Auto) Eos % (Auto) Baso % (Auto) Lymph # (Auto) [place] # (Auto) Eos # (Auto) Baso # (Auto) Abs Immat Gran (auto) Absolute Neuts (auto) Absolute Nucleated RBC Nucleated RBC % (auto) Neutrophils % (Manual) Band Neutrophils % Lymphocytes % (Manual) Atypical Lymphs % (Man) Monocytes % (Manual) Eosinophils % (Manual) Basophils % (Manual) Metamyelocytes % Myelocytes % Abs Neuts (Manual) Lymphocytes # (Manual) Atyp Lymphs # (Manual) Monocytes # (Manual) Eosinophils # (Manual) Basophils # (Manual) Metamyelocytes # Myelocytes # Nucleated RBCs Toxic Vacuolation Platelet Estimate Large Platelets Plt Morphology Comment RBC Morphology Polychromasia Hypochromasia Microcytosis Ovalocytes [place] Cells Acanthocytes (Spur) Schistocytes Smear Tech's Comments PT INR APTT D-Dimer ABG pH ABG pCO2 ABG pO2 ABG HCO3 ABG O2 Saturation ABG Base Excess VBG pH VBG pCO2 VBG pO2 VBG HCO3 VBG O2 Saturation VBG Base Excess Oxygen Given Sodium Potassium Chloride Carbon Dioxide Anion Gap BUN Creatinine Estim Creat Clear Calc Estimated GFR POC Glucose 167 H 187 H 171 H Random Glucose Lactic Acid Calcium Phosphorus Magnesium Ferritin Total Bilirubin Direct Bilirubin AST ALT Alkaline Phosphatase Lactate Dehydrogenase Total Creatine Kinase Troponin I High Sens C-Reactive Protein B-Natriuretic Peptide Total Protein Albumin Procalcitonin TSH Free T4 Free T3 Vancomycin Trough Coronavirus (PCR) COVID-19 (NELLY) COVID-19 Clin Com Influenza Type A (PCR) Influenza Type B (PCR) RSV RNA Qual (PCR) Blood Type Antibody Screen 11/26/20 11/26/20 11/26/20 02:54 04:59 05:30 WBC 8.5 RBC 4.06 L Hgb 10.3 L Hct 33.4 L MCV 82.3 MCH 25.4 L MCHC 30.8 L RDW 16.6 H Plt Count 153 L MPV 10.1 Immature Gran % (Auto) Cancelled Neut % (Auto) Cancelled Lymph % (Auto) Cancelled [place] % (Auto) Cancelled Eos % (Auto) Cancelled Baso % (Auto) Cancelled Lymph # (Auto) Cancelled [place] # (Auto) Cancelled Eos # (Auto) Cancelled Baso # (Auto) Cancelled Abs Immat Gran (auto) Cancelled Absolute Neuts (auto) Cancelled Absolute Nucleated RBC 0.000 Nucleated RBC % (auto) 0.0 Neutrophils % (Manual) 82 H Band Neutrophils % 3 Lymphocytes % (Manual) 3 L Atypical Lymphs % (Man) Monocytes % (Manual) 6 Eosinophils % (Manual) 2 Basophils % (Manual) Metamyelocytes % 4 Myelocytes % Abs Neuts (Manual) 7.2 Lymphocytes # (Manual) 0.3 L Atyp Lymphs # (Manual) Monocytes # (Manual) 0.5 Eosinophils # (Manual) 0.2 Basophils # (Manual) Metamyelocytes # 0.3 Myelocytes # Nucleated RBCs Toxic Vacuolation Platelet Estimate SLIGHTLY DECREASED Large Platelets PRESENT Plt Morphology Comment NOTED RBC Morphology NOTED Polychromasia Hypochromasia 1+ Microcytosis Ovalocytes 1+ [place] Cells 1+ Acanthocytes (Spur) Schistocytes Smear Tech's Comments PT INR APTT D-Dimer ABG pH ABG pCO2 ABG pO2 ABG HCO3 ABG O2 Saturation ABG Base Excess VBG pH VBG pCO2 VBG pO2 VBG HCO3 VBG O2 Saturation VBG Base Excess Oxygen Given Sodium Potassium Chloride Carbon Dioxide Anion Gap BUN Creatinine Estim Creat Clear Calc Estimated GFR POC Glucose 165 H 166 H Random Glucose Lactic Acid Calcium Phosphorus Magnesium Ferritin Total Bilirubin Direct Bilirubin AST ALT Alkaline Phosphatase Lactate Dehydrogenase Total Creatine Kinase Troponin I High Sens C-Reactive Protein B-Natriuretic Peptide Total Protein Albumin Procalcitonin TSH Free T4 Free T3 Vancomycin Trough Coronavirus (PCR) COVID-19 (NELLY) COVID-19 Clin Com Influenza Type A (PCR) Influenza Type B (PCR) RSV RNA Qual (PCR) Blood Type Antibody Screen 11/26/20 11/26/20 11/26/20 05:30 05:40 06:54 WBC RBC Hgb Hct MCV MCH MCHC RDW Plt Count MPV Immature Gran % (Auto) Neut % (Auto) Lymph % (Auto) [place] % (Auto) Eos % (Auto) Baso % (Auto) Lymph # (Auto) [place] # (Auto) Eos # (Auto) Baso # (Auto) Abs Immat Gran (auto) Absolute Neuts (auto) Absolute Nucleated RBC Nucleated RBC % (auto) Neutrophils % (Manual) Band Neutrophils % Lymphocytes % (Manual) Atypical Lymphs % (Man) Monocytes % (Manual) Eosinophils % (Manual) Basophils % (Manual) Metamyelocytes % Myelocytes % Abs Neuts (Manual) Lymphocytes # (Manual) Atyp Lymphs # (Manual) Monocytes # (Manual) Eosinophils # (Manual) Basophils # (Manual) Metamyelocytes # Myelocytes # Nucleated RBCs Toxic Vacuolation Platelet Estimate Large Platelets Plt Morphology Comment RBC Morphology Polychromasia Hypochromasia Microcytosis Ovalocytes [place] Cells Acanthocytes (Spur) Schistocytes Smear Tech's Comments PT INR APTT D-Dimer ABG pH ABG pCO2 ABG pO2 ABG HCO3 ABG O2 Saturation ABG Base Excess VBG pH 7.41 VBG pCO2 40 VBG pO2 48 VBG HCO3 25 VBG O2 Saturation 79.0 VBG Base Excess 1.2 Oxygen Given Sodium 139 Potassium 3.9 Chloride 102 Carbon Dioxide 28 Anion Gap 13 BUN 39 H Creatinine 0.97 Estim Creat Clear Calc 84.7 Estimated GFR 57 POC Glucose 122 H Random Glucose 183 H Lactic Acid Calcium 8.3 L Phosphorus 4.5 Magnesium 1.9 Ferritin Total Bilirubin Direct Bilirubin AST ALT Alkaline Phosphatase Lactate Dehydrogenase Total Creatine Kinase Troponin I High Sens C-Reactive Protein B-Natriuretic Peptide Total Protein Albumin 3.1 L Procalcitonin TSH Free T4 Free T3 Vancomycin Trough Coronavirus (PCR) COVID-19 (NELLY) COVID-19 Clin Com Influenza Type A (PCR) Influenza Type B (PCR) RSV RNA Qual (PCR) Blood Type Antibody Screen 11/26/20 11/26/20 11/26/20 08:51 11:01 13:00 WBC RBC Hgb Hct MCV MCH MCHC RDW Plt Count MPV Immature Gran % (Auto) Neut % (Auto) Lymph % (Auto) [place] % (Auto) Eos % (Auto) Baso % (Auto) Lymph # (Auto) [place] # (Auto) Eos # (Auto) Baso # (Auto) Abs Immat Gran (auto) Absolute Neuts (auto) Absolute Nucleated RBC Nucleated RBC % (auto) Neutrophils % (Manual) Band Neutrophils % Lymphocytes % (Manual) Atypical Lymphs % (Man) Monocytes % (Manual) Eosinophils % (Manual) Basophils % (Manual) Metamyelocytes % Myelocytes % Abs Neuts (Manual) Lymphocytes # (Manual) Atyp Lymphs # (Manual) Monocytes # (Manual) Eosinophils # (Manual) Basophils # (Manual) Metamyelocytes # Myelocytes # Nucleated RBCs Toxic Vacuolation Platelet Estimate Large Platelets Plt Morphology Comment RBC Morphology Polychromasia Hypochromasia Microcytosis Ovalocytes [place] Cells Acanthocytes (Spur) Schistocytes Smear Tech's Comments PT INR APTT D-Dimer ABG pH ABG pCO2 ABG pO2 ABG HCO3 ABG O2 Saturation ABG Base Excess VBG pH VBG pCO2 VBG pO2 VBG HCO3 VBG O2 Saturation VBG Base Excess Oxygen Given Sodium Potassium Chloride Carbon Dioxide Anion Gap BUN Creatinine Estim Creat Clear Calc Estimated GFR POC Glucose 129 H 181 H 211 H Random Glucose Lactic Acid Calcium Phosphorus Magnesium Ferritin Total Bilirubin Direct Bilirubin AST ALT Alkaline Phosphatase Lactate Dehydrogenase Total Creatine Kinase Troponin I High Sens C-Reactive Protein B-Natriuretic Peptide Total Protein Albumin Procalcitonin TSH Free T4 Free T3 Vancomycin Trough Coronavirus (PCR) COVID-19 (NELLY) COVID-19 Clin Com Influenza Type A (PCR) Influenza Type B (PCR) RSV RNA Qual (PCR) Blood Type Antibody Screen 11/26/20 11/26/20 11/26/20 15:14 17:16 19:07 WBC RBC Hgb Hct MCV MCH MCHC RDW Plt Count MPV Immature Gran % (Auto) Neut % (Auto) Lymph % (Auto) [place] % (Auto) Eos % (Auto) Baso % (Auto) Lymph # (Auto) [place] # (Auto) Eos # (Auto) Baso # (Auto) Abs Immat Gran (auto) Absolute Neuts (auto) Absolute Nucleated RBC Nucleated RBC % (auto) Neutrophils % (Manual) Band Neutrophils % Lymphocytes % (Manual) Atypical Lymphs % (Man) Monocytes % (Manual) Eosinophils % (Manual) Basophils % (Manual) Metamyelocytes % Myelocytes % Abs Neuts (Manual) Lymphocytes # (Manual) Atyp Lymphs # (Manual) Monocytes # (Manual) Eosinophils # (Manual) Basophils # (Manual) Metamyelocytes # Myelocytes # Nucleated RBCs Toxic Vacuolation Platelet Estimate Large Platelets Plt Morphology Comment RBC Morphology Polychromasia Hypochromasia Microcytosis Ovalocytes [place] Cells Acanthocytes (Spur) Schistocytes Smear Tech's Comments PT INR APTT D-Dimer ABG pH ABG pCO2 ABG pO2 ABG HCO3 ABG O2 Saturation ABG Base Excess VBG pH VBG pCO2 VBG pO2 VBG HCO3 VBG O2 Saturation VBG Base Excess Oxygen Given Sodium Potassium Chloride Carbon Dioxide Anion Gap BUN Creatinine Estim Creat Clear Calc Estimated GFR POC Glucose 189 H 234 H 230 H Random Glucose Lactic Acid Calcium Phosphorus Magnesium Ferritin Total Bilirubin Direct Bilirubin AST ALT Alkaline Phosphatase Lactate Dehydrogenase Total Creatine Kinase Troponin I High Sens C-Reactive Protein B-Natriuretic Peptide Total Protein Albumin Procalcitonin TSH Free T4 Free T3 Vancomycin Trough Coronavirus (PCR) COVID-19 (NELLY) COVID-19 Clin Com Influenza Type A (PCR) Influenza Type B (PCR) RSV RNA Qual (PCR) Blood Type Antibody Screen 11/26/20 11/27/20 11/27/20 21:04 00:59 02:30 WBC RBC Hgb Hct MCV MCH MCHC RDW Plt Count MPV Immature Gran % (Auto) Neut % (Auto) Lymph % (Auto) [place] % (Auto) Eos % (Auto) Baso % (Auto) Lymph # (Auto) [place] # (Auto) Eos # (Auto) Baso # (Auto) Abs Immat Gran (auto) Absolute Neuts (auto) Absolute Nucleated RBC Nucleated RBC % (auto) Neutrophils % (Manual) Band Neutrophils % Lymphocytes % (Manual) Atypical Lymphs % (Man) Monocytes % (Manual) Eosinophils % (Manual) Basophils % (Manual) Metamyelocytes % Myelocytes % Abs Neuts (Manual) Lymphocytes # (Manual) Atyp Lymphs # (Manual) Monocytes # (Manual) Eosinophils # (Manual) Basophils # (Manual) Metamyelocytes # Myelocytes # Nucleated RBCs Toxic Vacuolation Platelet Estimate Large Platelets Plt Morphology Comment RBC Morphology Polychromasia Hypochromasia Microcytosis Ovalocytes [place] Cells Acanthocytes (Spur) Schistocytes Smear Tech's Comments PT INR APTT D-Dimer ABG pH ABG pCO2 ABG pO2 ABG HCO3 ABG O2 Saturation ABG Base Excess VBG pH VBG pCO2 VBG pO2 VBG HCO3 VBG O2 Saturation VBG Base Excess Oxygen Given Sodium Potassium Chloride Carbon Dioxide Anion Gap BUN Creatinine Estim Creat Clear Calc Estimated GFR POC Glucose 208 H 88 102 Random Glucose Lactic Acid Calcium Phosphorus Magnesium Ferritin Total Bilirubin Direct Bilirubin AST ALT Alkaline Phosphatase Lactate Dehydrogenase Total Creatine Kinase Troponin I High Sens C-Reactive Protein B-Natriuretic Peptide Total Protein Albumin Procalcitonin TSH Free T4 Free T3 Vancomycin Trough Coronavirus (PCR) COVID-19 (NELLY) COVID-19 Clin Com Influenza Type A (PCR) Influenza Type B (PCR) RSV RNA Qual (PCR) Blood Type Antibody Screen 11/27/20 11/27/20 11/27/20 03:45 04:45 05:45 WBC 10.1 RBC 4.11 L Hgb 10.5 L Hct 34.2 L MCV 83.2 MCH 25.5 L MCHC 30.7 L RDW 16.4 H Plt Count 160 MPV 10.5 Immature Gran % (Auto) Cancelled Neut % (Auto) Cancelled Lymph % (Auto) Cancelled [place] % (Auto) Cancelled Eos % (Auto) Cancelled Baso % (Auto) Cancelled Lymph # (Auto) Cancelled [place] # (Auto) Cancelled Eos # (Auto) Cancelled Baso # (Auto) Cancelled Abs Immat Gran (auto) Cancelled Absolute Neuts (auto) Cancelled Absolute Nucleated RBC 0.000 Nucleated RBC % (auto) 0.0 Neutrophils % (Manual) 77 H Band Neutrophils % 3 Lymphocytes % (Manual) 7 L Atypical Lymphs % (Man) Monocytes % (Manual) 4 Eosinophils % (Manual) 6 H Basophils % (Manual) 1 Metamyelocytes % 2 Myelocytes % Abs Neuts (Manual) 8.1 H Lymphocytes # (Manual) 0.7 Atyp Lymphs # (Manual) Monocytes # (Manual) 0.4 Eosinophils # (Manual) 0.6 Basophils # (Manual) 0.1 Metamyelocytes # 0.2 Myelocytes # Nucleated RBCs Toxic Vacuolation Platelet Estimate NORMAL Large Platelets Plt Morphology Comment NORMAL RBC Morphology NOTED Polychromasia Hypochromasia Microcytosis Ovalocytes 1+ [place] Cells 1+ Acanthocytes (Spur) Schistocytes Smear Tech's Comments PT INR APTT D-Dimer ABG pH ABG pCO2 ABG pO2 ABG HCO3 ABG O2 Saturation ABG Base Excess VBG pH VBG pCO2 VBG pO2 VBG HCO3 VBG O2 Saturation VBG Base Excess Oxygen Given Sodium Potassium Chloride Carbon Dioxide Anion Gap BUN Creatinine Estim Creat Clear Calc Estimated GFR POC Glucose 163 H 201 H Random Glucose Lactic Acid Calcium Phosphorus Magnesium Ferritin Total Bilirubin Direct Bilirubin AST ALT Alkaline Phosphatase Lactate Dehydrogenase Total Creatine Kinase Troponin I High Sens C-Reactive Protein B-Natriuretic Peptide Total Protein Albumin Procalcitonin TSH Free T4 Free T3 Vancomycin Trough Coronavirus (PCR) COVID-19 (NELLY) COVID-19 Clin Com Influenza Type A (PCR) Influenza Type B (PCR) RSV RNA Qual (PCR) Blood Type Antibody Screen 11/27/20 11/27/20 11/27/20 05:45 05:53 06:53 WBC RBC Hgb Hct MCV MCH MCHC RDW Plt Count MPV Immature Gran % (Auto) Neut % (Auto) Lymph % (Auto) [place] % (Auto) Eos % (Auto) Baso % (Auto) Lymph # (Auto) [place] # (Auto) Eos # (Auto) Baso # (Auto) Abs Immat Gran (auto) Absolute Neuts (auto) Absolute Nucleated RBC Nucleated RBC % (auto) Neutrophils % (Manual) Band Neutrophils % Lymphocytes % (Manual) Atypical Lymphs % (Man) Monocytes % (Manual) Eosinophils % (Manual) Basophils % (Manual) Metamyelocytes % Myelocytes % Abs Neuts (Manual) Lymphocytes # (Manual) Atyp Lymphs # (Manual) Monocytes # (Manual) Eosinophils # (Manual) Basophils # (Manual) Metamyelocytes # Myelocytes # Nucleated RBCs Toxic Vacuolation Platelet Estimate Large Platelets Plt Morphology Comment RBC Morphology Polychromasia Hypochromasia Microcytosis Ovalocytes [place] Cells Acanthocytes (Spur) Schistocytes Smear Tech's Comments PT INR APTT D-Dimer ABG pH ABG pCO2 ABG pO2 ABG HCO3 ABG O2 Saturation ABG Base Excess VBG pH 7.37 VBG pCO2 37 VBG pO2 60 VBG HCO3 22 VBG O2 Saturation 87.0 VBG Base Excess -2.5 Oxygen Given Sodium 136 Potassium 3.8 Chloride 98 Carbon Dioxide 26 Anion Gap 16 BUN 38 H Creatinine 0.95 Estim Creat Clear Calc 86.5 Estimated GFR 59 POC Glucose 237 H Random Glucose 284 H D Lactic Acid Calcium 8.5 Phosphorus 4.3 Magnesium 1.7 Ferritin Total Bilirubin Direct Bilirubin AST ALT Alkaline Phosphatase Lactate Dehydrogenase Total Creatine Kinase Troponin I High Sens C-Reactive Protein B-Natriuretic Peptide Total Protein Albumin 3.0 L Procalcitonin TSH Free T4 Free T3 Vancomycin Trough Coronavirus (PCR) COVID-19 (NELLY) COVID-19 Clin Com Influenza Type A (PCR) Influenza Type B (PCR) RSV RNA Qual (PCR) Blood Type Antibody Screen 11/27/20 11/27/20 11/27/20 08:09 08:49 10:26 WBC RBC Hgb Hct MCV MCH MCHC RDW Plt Count MPV Immature Gran % (Auto) Neut % (Auto) Lymph % (Auto) [place] % (Auto) Eos % (Auto) Baso % (Auto) Lymph # (Auto) [place] # (Auto) Eos # (Auto) Baso # (Auto) Abs Immat Gran (auto) Absolute Neuts (auto) Absolute Nucleated RBC Nucleated RBC % (auto) Neutrophils % (Manual) Band Neutrophils % Lymphocytes % (Manual) Atypical Lymphs % (Man) Monocytes % (Manual) Eosinophils % (Manual) Basophils % (Manual) Metamyelocytes % Myelocytes % Abs Neuts (Manual) Lymphocytes # (Manual) Atyp Lymphs # (Manual) Monocytes # (Manual) Eosinophils # (Manual) Basophils # (Manual) Metamyelocytes # Myelocytes # Nucleated RBCs Toxic Vacuolation Platelet Estimate Large Platelets Plt Morphology Comment RBC Morphology Polychromasia Hypochromasia Microcytosis Ovalocytes [place] Cells Acanthocytes (Spur) Schistocytes Smear Tech's Comments PT INR APTT D-Dimer ABG pH ABG pCO2 ABG pO2 ABG HCO3 ABG O2 Saturation ABG Base Excess VBG pH VBG pCO2 VBG pO2 VBG HCO3 VBG O2 Saturation VBG Base Excess Oxygen Given Sodium Potassium Chloride Carbon Dioxide Anion Gap BUN Creatinine Estim Creat Clear Calc Estimated GFR POC Glucose 232 H 242 H 204 H Random Glucose Lactic Acid Calcium Phosphorus Magnesium Ferritin Total Bilirubin Direct Bilirubin AST ALT Alkaline Phosphatase Lactate Dehydrogenase Total Creatine Kinase Troponin I High Sens C-Reactive Protein B-Natriuretic Peptide Total Protein Albumin Procalcitonin TSH Free T4 Free T3 Vancomycin Trough Coronavirus (PCR) COVID-19 (NELLY) COVID-19 Clin Com Influenza Type A (PCR) Influenza Type B (PCR) RSV RNA Qual (PCR) Blood Type Antibody Screen 11/27/20 11/27/20 11/27/20 11:00 12:04 13:56 WBC RBC Hgb Hct MCV MCH MCHC RDW Plt Count MPV Immature Gran % (Auto) Neut % (Auto) Lymph % (Auto) [place] % (Auto) Eos % (Auto) Baso % (Auto) Lymph # (Auto) [place] # (Auto) Eos # (Auto) Baso # (Auto) Abs Immat Gran (auto) Absolute Neuts (auto) Absolute Nucleated RBC Nucleated RBC % (auto) Neutrophils % (Manual) Band Neutrophils % Lymphocytes % (Manual) Atypical Lymphs % (Man) Monocytes % (Manual) Eosinophils % (Manual) Basophils % (Manual) Metamyelocytes % Myelocytes % Abs Neuts (Manual) Lymphocytes # (Manual) Atyp Lymphs # (Manual) Monocytes # (Manual) Eosinophils # (Manual) Basophils # (Manual) Metamyelocytes # Myelocytes # Nucleated RBCs Toxic Vacuolation Platelet Estimate Large Platelets Plt Morphology Comment RBC Morphology Polychromasia Hypochromasia Microcytosis Ovalocytes [place] Cells Acanthocytes (Spur) Schistocytes Smear Tech's Comments PT INR APTT D-Dimer ABG pH ABG pCO2 ABG pO2 ABG HCO3 ABG O2 Saturation ABG Base Excess VBG pH VBG pCO2 VBG pO2 VBG HCO3 VBG O2 Saturation VBG Base Excess Oxygen Given Sodium Potassium Chloride Carbon Dioxide Anion Gap BUN Creatinine Estim Creat Clear Calc Estimated GFR POC Glucose 159 H 173 H 187 H Random Glucose Lactic Acid Calcium Phosphorus Magnesium Ferritin Total Bilirubin Direct Bilirubin AST ALT Alkaline Phosphatase Lactate Dehydrogenase Total Creatine Kinase Troponin I High Sens C-Reactive Protein B-Natriuretic Peptide Total Protein Albumin Procalcitonin TSH Free T4 Free T3 Vancomycin Trough Coronavirus (PCR) COVID-19 (NELLY) COVID-19 Clin Com Influenza Type A (PCR) Influenza Type B (PCR) RSV RNA Qual (PCR) Blood Type Antibody Screen 11/27/20 11/27/20 11/27/20 16:26 18:30 19:47 WBC RBC Hgb Hct MCV MCH MCHC RDW Plt Count MPV Immature Gran % (Auto) Neut % (Auto) Lymph % (Auto) [place] % (Auto) Eos % (Auto) Baso % (Auto) Lymph # (Auto) [place] # (Auto) Eos # (Auto) Baso # (Auto) Abs Immat Gran (auto) Absolute Neuts (auto) Absolute Nucleated RBC Nucleated RBC % (auto) Neutrophils % (Manual) Band Neutrophils % Lymphocytes % (Manual) Atypical Lymphs % (Man) Monocytes % (Manual) Eosinophils % (Manual) Basophils % (Manual) Metamyelocytes % Myelocytes % Abs Neuts (Manual) Lymphocytes # (Manual) Atyp Lymphs # (Manual) Monocytes # (Manual) Eosinophils # (Manual) Basophils # (Manual) Metamyelocytes # Myelocytes # Nucleated RBCs Toxic Vacuolation Platelet Estimate Large Platelets Plt Morphology Comment RBC Morphology Polychromasia Hypochromasia Microcytosis Ovalocytes [place] Cells Acanthocytes (Spur) Schistocytes Smear Tech's Comments PT INR APTT D-Dimer ABG pH ABG pCO2 ABG pO2 ABG HCO3 ABG O2 Saturation ABG Base Excess VBG pH VBG pCO2 VBG pO2 VBG HCO3 VBG O2 Saturation VBG Base Excess Oxygen Given Sodium Potassium Chloride Carbon Dioxide Anion Gap BUN Creatinine Estim Creat Clear Calc Estimated GFR POC Glucose 191 H 160 H 159 H Random Glucose Lactic Acid Calcium Phosphorus Magnesium Ferritin Total Bilirubin Direct Bilirubin AST ALT Alkaline Phosphatase Lactate Dehydrogenase Total Creatine Kinase Troponin I High Sens C-Reactive Protein B-Natriuretic Peptide Total Protein Albumin Procalcitonin TSH Free T4 Free T3 Vancomycin Trough Coronavirus (PCR) COVID-19 (NELLY) COVID-19 Clin Com Influenza Type A (PCR) Influenza Type B (PCR) RSV RNA Qual (PCR) Blood Type Antibody Screen 11/27/20 11/28/20 11/28/20 21:54 00:18 02:40 WBC RBC Hgb Hct MCV MCH MCHC RDW Plt Count MPV Immature Gran % (Auto) Neut % (Auto) Lymph % (Auto) [place] % (Auto) Eos % (Auto) Baso % (Auto) Lymph # (Auto) [place] # (Auto) Eos # (Auto) Baso # (Auto) Abs Immat Gran (auto) Absolute Neuts (auto) Absolute Nucleated RBC Nucleated RBC % (auto) Neutrophils % (Manual) Band Neutrophils % Lymphocytes % (Manual) Atypical Lymphs % (Man) Monocytes % (Manual) Eosinophils % (Manual) Basophils % (Manual) Metamyelocytes % Myelocytes % Abs Neuts (Manual) Lymphocytes # (Manual) Atyp Lymphs # (Manual) Monocytes # (Manual) Eosinophils # (Manual) Basophils # (Manual) Metamyelocytes # Myelocytes # Nucleated RBCs Toxic Vacuolation Platelet Estimate Large Platelets Plt Morphology Comment RBC Morphology Polychromasia Hypochromasia Microcytosis Ovalocytes [place] Cells Acanthocytes (Spur) Schistocytes Smear Tech's Comments PT INR APTT D-Dimer ABG pH ABG pCO2 ABG pO2 ABG HCO3 ABG O2 Saturation ABG Base Excess VBG pH VBG pCO2 VBG pO2 VBG HCO3 VBG O2 Saturation VBG Base Excess Oxygen Given Sodium Potassium Chloride Carbon Dioxide Anion Gap BUN Creatinine Estim Creat Clear Calc Estimated GFR POC Glucose 115 118 H 137 H Random Glucose Lactic Acid Calcium Phosphorus Magnesium Ferritin Total Bilirubin Direct Bilirubin AST ALT Alkaline Phosphatase Lactate Dehydrogenase Total Creatine Kinase Troponin I High Sens C-Reactive Protein B-Natriuretic Peptide Total Protein Albumin Procalcitonin TSH Free T4 Free T3 Vancomycin Trough Coronavirus (PCR) COVID-19 (NELLY) COVID-19 Clin Com Influenza Type A (PCR) Influenza Type B (PCR) RSV RNA Qual (PCR) Blood Type Antibody Screen 11/28/20 11/28/20 11/28/20 06:17 06:17 06:24 WBC 9.4 RBC 3.99 L Hgb 10.1 L Hct 32.7 L MCV 82.0 MCH 25.3 L MCHC 30.9 L RDW 16.3 H Plt Count 173 MPV 10.2 Immature Gran % (Auto) Cancelled Neut % (Auto) Cancelled Lymph % (Auto) Cancelled [place] % (Auto) Cancelled Eos % (Auto) Cancelled Baso % (Auto) Cancelled Lymph # (Auto) Cancelled [place] # (Auto) Cancelled Eos # (Auto) Cancelled Baso # (Auto) Cancelled Abs Immat Gran (auto) Cancelled Absolute Neuts (auto) Cancelled Absolute Nucleated RBC 0.000 Nucleated RBC % (auto) 0.0 Neutrophils % (Manual) 67 Band Neutrophils % 8 H Lymphocytes % (Manual) 4 L Atypical Lymphs % (Man) Monocytes % (Manual) 2 Eosinophils % (Manual) 15 H Basophils % (Manual) Metamyelocytes % 4 Myelocytes % Abs Neuts (Manual) 7.1 Lymphocytes # (Manual) 0.4 L Atyp Lymphs # (Manual) Monocytes # (Manual) 0.2 Eosinophils # (Manual) 1.4 H Basophils # (Manual) Metamyelocytes # 0.4 Myelocytes # Nucleated RBCs 1 H Toxic Vacuolation Platelet Estimate NORMAL Large Platelets Plt Morphology Comment NORMAL RBC Morphology NOTED Polychromasia Hypochromasia Microcytosis 1+ Ovalocytes 1+ [place] Cells Acanthocytes (Spur) Schistocytes 1+ Smear Tech's Comments PT INR APTT D-Dimer ABG pH ABG pCO2 ABG pO2 ABG HCO3 ABG O2 Saturation ABG Base Excess VBG pH VBG pCO2 VBG pO2 VBG HCO3 VBG O2 Saturation VBG Base Excess Oxygen Given Sodium 137 Potassium 3.6 Chloride 98 Carbon Dioxide 27 Anion Gap 16 BUN 33 H Creatinine 0.88 Estim Creat Clear Calc 93.4 Estimated GFR > 60 POC Glucose 222 H Random Glucose 264 H Lactic Acid Calcium 9.1 D Phosphorus 4.4 Magnesium 1.9 Ferritin Total Bilirubin 0.8 Direct Bilirubin AST 23 ALT 18 Alkaline Phosphatase 73 Lactate Dehydrogenase Total Creatine Kinase Troponin I High Sens C-Reactive Protein B-Natriuretic Peptide Total Protein 6.8 Albumin 3.9 D Procalcitonin TSH Free T4 Free T3 Vancomycin Trough Coronavirus (PCR) COVID-19 (NE[facility]) COVID-19 Clin Com Influenza Type A (PCR) Influenza Type B (PCR) RSV RNA Qual (PCR) Blood Type Antibody Screen 11/28/20 11/28/20 11/28/20 06:26 07:15 08:29 WBC RBC Hgb Hct MCV MCH MCHC RDW Plt Count MPV Immature Gran % (Auto) Neut % (Auto) Lymph % (Auto) [place] % (Auto) Eos % (Auto) Baso % (Auto) Lymph # (Auto) [place] # (Auto) Eos # (Auto) Baso # (Auto) Abs Immat Gran (auto) Absolute Neuts (auto) Absolute Nucleated RBC Nucleated RBC % (auto) Neutrophils % (Manual) Band Neutrophils % Lymphocytes % (Manual) Atypical Lymphs % (Man) Monocytes % (Manual) Eosinophils % (Manual) Basophils % (Manual) Metamyelocytes % Myelocytes % Abs Neuts (Manual) Lymphocytes # (Manual) Atyp Lymphs # (Manual) Monocytes # (Manual) Eosinophils # (Manual) Basophils # (Manual) Metamyelocytes # Myelocytes # Nucleated RBCs Toxic Vacuolation Platelet Estimate Large Platelets Plt Morphology Comment RBC Morphology Polychromasia Hypochromasia Microcytosis Ovalocytes [place] Cells Acanthocytes (Spur) Schistocytes Smear Tech's Comments PT INR APTT D-Dimer ABG pH ABG pCO2 ABG pO2 ABG HCO3 ABG O2 Saturation ABG Base Excess VBG pH 7.38 VBG pCO2 34 VBG pO2 68 VBG HCO3 20 L VBG O2 Saturation 90.0 VBG Base Excess -3.7 Oxygen Given Sodium Potassium Chloride Carbon Dioxide Anion Gap BUN Creatinine Estim Creat Clear Calc Estimated GFR POC Glucose 247 H 227 H Random Glucose Lactic Acid Calcium Phosphorus Magnesium Ferritin Total Bilirubin Direct Bilirubin AST ALT Alkaline Phosphatase Lactate Dehydrogenase Total Creatine Kinase Troponin I High Sens C-Reactive Protein B-Natriuretic Peptide Total Protein Albumin Procalcitonin TSH Free T4 Free T3 Vancomycin Trough Coronavirus (PCR) COVID-19 (NELLY) COVID-19 Clin Com Influenza Type A (PCR) Influenza Type B (PCR) RSV RNA Qual (PCR) Blood Type Antibody Screen 11/28/20 11/28/20 11/28/20 09:46 10:35 10:57 WBC RBC Hgb Hct MCV MCH MCHC RDW Plt Count MPV Immature Gran % (Auto) Neut % (Auto) Lymph % (Auto) [place] % (Auto) Eos % (Auto) Baso % (Auto) Lymph # (Auto) [place] # (Auto) Eos # (Auto) Baso # (Auto) Abs Immat Gran (auto) Absolute Neuts (auto) Absolute Nucleated RBC Nucleated RBC % (auto) Neutrophils % (Manual) Band Neutrophils % Lymphocytes % (Manual) Atypical Lymphs % (Man) Monocytes % (Manual) Eosinophils % (Manual) Basophils % (Manual) Metamyelocytes % Myelocytes % Abs Neuts (Manual) Lymphocytes # (Manual) Atyp Lymphs # (Manual) Monocytes # (Manual) Eosinophils # (Manual) Basophils # (Manual) Metamyelocytes # Myelocytes # Nucleated RBCs Toxic Vacuolation Platelet Estimate Large Platelets Plt Morphology Comment RBC Morphology Polychromasia Hypochromasia Microcytosis Ovalocytes [place] Cells Acanthocytes (Spur) Schistocytes Smear Tech's Comments PT INR APTT D-Dimer ABG pH ABG pCO2 ABG pO2 ABG HCO3 ABG O2 Saturation ABG Base Excess VBG pH VBG pCO2 VBG pO2 VBG HCO3 VBG O2 Saturation VBG Base Excess Oxygen Given Sodium Potassium Chloride Carbon Dioxide Anion Gap BUN Creatinine Estim Creat Clear Calc Estimated GFR POC Glucose 218 H 207 H 190 H Random Glucose Lactic Acid Calcium Phosphorus Magnesium Ferritin Total Bilirubin Direct Bilirubin AST ALT Alkaline Phosphatase Lactate Dehydrogenase Total Creatine Kinase Troponin I High Sens C-Reactive Protein B-Natriuretic Peptide Total Protein Albumin Procalcitonin TSH Free T4 Free T3 Vancomycin Trough Coronavirus (PCR) COVID-19 (NELLY) COVID-19 Clin Com Influenza Type A (PCR) Influenza Type B (PCR) RSV RNA Qual (PCR) Blood Type Antibody Screen 11/28/20 11/28/20 11/28/20 11:51 13:11 15:04 WBC RBC Hgb Hct MCV MCH MCHC RDW Plt Count MPV Immature Gran % (Auto) Neut % (Auto) Lymph % (Auto) [place] % (Auto) Eos % (Auto) Baso % (Auto) Lymph # (Auto) [place] # (Auto) Eos # (Auto) Baso # (Auto) Abs Immat Gran (auto) Absolute Neuts (auto) Absolute Nucleated RBC Nucleated RBC % (auto) Neutrophils % (Manual) Band Neutrophils % Lymphocytes % (Manual) Atypical Lymphs % (Man) Monocytes % (Manual) Eosinophils % (Manual) Basophils % (Manual) Metamyelocytes % Myelocytes % Abs Neuts (Manual) Lymphocytes # (Manual) Atyp Lymphs # (Manual) Monocytes # (Manual) Eosinophils # (Manual) Basophils # (Manual) Metamyelocytes # Myelocytes # Nucleated RBCs Toxic Vacuolation Platelet Estimate Large Platelets Plt Morphology Comment RBC Morphology Polychromasia Hypochromasia Microcytosis Ovalocytes [place] Cells Acanthocytes (Spur) Schistocytes Smear Tech's Comments PT INR APTT D-Dimer ABG pH ABG pCO2 ABG pO2 ABG HCO3 ABG O2 Saturation ABG Base Excess VBG pH VBG pCO2 VBG pO2 VBG HCO3 VBG O2 Saturation VBG Base Excess Oxygen Given Sodium Potassium Chloride Carbon Dioxide Anion Gap BUN Creatinine Estim Creat Clear Calc Estimated GFR POC Glucose 190 H 161 H 170 H Random Glucose Lactic Acid Calcium Phosphorus Magnesium Ferritin Total Bilirubin Direct Bilirubin AST ALT Alkaline Phosphatase Lactate Dehydrogenase Total Creatine Kinase Troponin I High Sens C-Reactive Protein B-Natriuretic Peptide Total Protein Albumin Procalcitonin TSH Free T4 Free T3 Vancomycin Trough Coronavirus (PCR) COVID-19 (NELLY) COVID-19 Clin Com Influenza Type A (PCR) Influenza Type B (PCR) RSV RNA Qual (PCR) Blood Type Antibody Screen 11/28/20 11/28/20 11/28/20 16:46 18:40 20:55 WBC RBC Hgb Hct MCV MCH MCHC RDW Plt Count MPV Immature Gran % (Auto) Neut % (Auto) Lymph % (Auto) [place] % (Auto) Eos % (Auto) Baso % (Auto) Lymph # (Auto) [place] # (Auto) Eos # (Auto) Baso # (Auto) Abs Immat Gran (auto) Absolute Neuts (auto) Absolute Nucleated RBC Nucleated RBC % (auto) Neutrophils % (Manual) Band Neutrophils % Lymphocytes % (Manual) Atypical Lymphs % (Man) Monocytes % (Manual) Eosinophils % (Manual) Basophils % (Manual) Metamyelocytes % Myelocytes % Abs Neuts (Manual) Lymphocytes # (Manual) Atyp Lymphs # (Manual) Monocytes # (Manual) Eosinophils # (Manual) Basophils # (Manual) Metamyelocytes # Myelocytes # Nucleated RBCs Toxic Vacuolation Platelet Estimate Large Platelets Plt Morphology Comment RBC Morphology Polychromasia Hypochromasia Microcytosis Ovalocytes [place] Cells Acanthocytes (Spur) Schistocytes Smear Tech's Comments PT INR APTT D-Dimer ABG pH ABG pCO2 ABG pO2 ABG HCO3 ABG O2 Saturation ABG Base Excess VBG pH VBG pCO2 VBG pO2 VBG HCO3 VBG O2 Saturation VBG Base Excess Oxygen Given Sodium Potassium Chloride Carbon Dioxide Anion Gap BUN Creatinine Estim Creat Clear Calc Estimated GFR POC Glucose 152 H 171 H 149 H Random Glucose Lactic Acid Calcium Phosphorus Magnesium Ferritin Total Bilirubin Direct Bilirubin AST ALT Alkaline Phosphatase Lactate Dehydrogenase Total Creatine Kinase Troponin I High Sens C-Reactive Protein B-Natriuretic Peptide Total Protein Albumin Procalcitonin TSH Free T4 Free T3 Vancomycin Trough Coronavirus (PCR) COVID-19 (NE[facility]) COVID-19 Clin Com Influenza Type A (PCR) Influenza Type B (PCR) RSV RNA Qual (PCR) Blood Type Antibody Screen 11/28/20 11/29/20 11/29/20 23:28 00:10 02:11 WBC RBC Hgb Hct MCV MCH MCHC RDW Plt Count MPV Immature Gran % (Auto) Neut % (Auto) Lymph % (Auto) [place] % (Auto) Eos % (Auto) Baso % (Auto) Lymph # (Auto) [place] # (Auto) Eos # (Auto) Baso # (Auto) Abs Immat Gran (auto) Absolute Neuts (auto) Absolute Nucleated RBC Nucleated RBC % (auto) Neutrophils % (Manual) Band Neutrophils % Lymphocytes % (Manual) Atypical Lymphs % (Man) Monocytes % (Manual) Eosinophils % (Manual) Basophils % (Manual) Metamyelocytes % Myelocytes % Abs Neuts (Manual) Lymphocytes # (Manual) Atyp Lymphs # (Manual) Monocytes # (Manual) Eosinophils # (Manual) Basophils # (Manual) Metamyelocytes # Myelocytes # Nucleated RBCs Toxic Vacuolation Platelet Estimate Large Platelets Plt Morphology Comment RBC Morphology Polychromasia Hypochromasia Microcytosis Ovalocytes [place] Cells Acanthocytes (Spur) Schistocytes Smear Tech's Comments PT INR APTT D-Dimer ABG pH ABG pCO2 ABG pO2 ABG HCO3 ABG O2 Saturation ABG Base Excess VBG pH VBG pCO2 VBG pO2 VBG HCO3 VBG O2 Saturation VBG Base Excess Oxygen Given Sodium Potassium Chloride Carbon Dioxide Anion Gap BUN Creatinine Estim Creat Clear Calc Estimated GFR POC Glucose 138 H 142 H 172 H Random Glucose Lactic Acid Calcium Phosphorus Magnesium Ferritin Total Bilirubin Direct Bilirubin AST ALT Alkaline Phosphatase Lactate Dehydrogenase Total Creatine Kinase Troponin I High Sens C-Reactive Protein B-Natriuretic Peptide Total Protein Albumin Procalcitonin TSH Free T4 Free T3 Vancomycin Trough Coronavirus (PCR) COVID-19 (NE[facility]) COVID-19 Clin Com Influenza Type A (PCR) Influenza Type B (PCR) RSV RNA Qual (PCR) Blood Type Antibody Screen 11/29/20 11/29/20 11/29/20 04:05 05:37 05:37 WBC 10.0 RBC 4.02 L Hgb 10.7 L Hct 33.3 L MCV 82.8 MCH 26.6 L MCHC 32.1 RDW 16.1 H Plt Count 181 MPV 10.8 Immature Gran % (Auto) Cancelled Neut % (Auto) Cancelled Lymph % (Auto) Cancelled [place] % (Auto) Cancelled Eos % (Auto) Cancelled Baso % (Auto) Cancelled Lymph # (Auto) Cancelled [place] # (Auto) Cancelled Eos # (Auto) Cancelled Baso # (Auto) Cancelled Abs Immat Gran (auto) Cancelled Absolute Neuts (auto) Cancelled Absolute Nucleated RBC 0.020 H Nucleated RBC % (auto) 0.2 Neutrophils % (Manual) 65 Band Neutrophils % 10 H Lymphocytes % (Manual) 9 L Atypical Lymphs % (Man) Monocytes % (Manual) 1 L Eosinophils % (Manual) 9 H Basophils % (Manual) Metamyelocytes % 5 Myelocytes % 1 Abs Neuts (Manual) 7.5 Lymphocytes # (Manual) 0.9 Atyp Lymphs # (Manual) Monocytes # (Manual) 0.1 Eosinophils # (Manual) 0.9 H Basophils # (Manual) Metamyelocytes # 0.5 Myelocytes # 0.1 Nucleated RBCs Toxic Vacuolation Platelet Estimate NORMAL Large Platelets Plt Morphology Comment NORMAL RBC Morphology NOTED Polychromasia Hypochromasia Microcytosis Ovalocytes 1+ [place] Cells Acanthocytes (Spur) 1+ Schistocytes Smear Tech's Comments PT INR APTT D-Dimer ABG pH ABG pCO2 ABG pO2 ABG HCO3 ABG O2 Saturation ABG Base Excess VBG pH VBG pCO2 VBG pO2 VBG HCO3 VBG O2 Saturation VBG Base Excess Oxygen Given Sodium 136 Potassium 3.9 Chloride 97 Carbon Dioxide 24 Anion Gap 19 BUN 32 H Creatinine 0.89 Estim Creat Clear Calc 92.4 Estimated GFR > 60 POC Glucose 147 H Random Glucose 164 H D Lactic Acid Calcium 9.1 Phosphorus 5.5 H Magnesium 1.9 Ferritin Total Bilirubin Direct Bilirubin AST ALT Alkaline Phosphatase Lactate Dehydrogenase Total Creatine Kinase Troponin I High Sens C-Reactive Protein B-Natriuretic Peptide Total Protein Albumin 3.5 Procalcitonin TSH Free T4 Free T3 Vancomycin Trough Coronavirus (PCR) COVID-19 (NELLY) COVID-19 Clin Com Influenza Type A (PCR) Influenza Type B (PCR) RSV RNA Qual (PCR) Blood Type Antibody Screen 11/29/20 11/29/20 11/29/20 05:49 05:54 07:26 WBC RBC Hgb Hct MCV MCH MCHC RDW Plt Count MPV Immature Gran % (Auto) Neut % (Auto) Lymph % (Auto) [place] % (Auto) Eos % (Auto) Baso % (Auto) Lymph # (Auto) [place] # (Auto) Eos # (Auto) Baso # (Auto) Abs Immat Gran (auto) Absolute Neuts (auto) Absolute Nucleated RBC Nucleated RBC % (auto) Neutrophils % (Manual) Band Neutrophils % Lymphocytes % (Manual) Atypical Lymphs % (Man) Monocytes % (Manual) Eosinophils % (Manual) Basophils % (Manual) Metamyelocytes % Myelocytes % Abs Neuts (Manual) Lymphocytes # (Manual) Atyp Lymphs # (Manual) Monocytes # (Manual) Eosinophils # (Manual) Basophils # (Manual) Metamyelocytes # Myelocytes # Nucleated RBCs Toxic Vacuolation Platelet Estimate Large Platelets Plt Morphology Comment RBC Morphology Polychromasia Hypochromasia Microcytosis Ovalocytes [place] Cells Acanthocytes (Spur) Schistocytes Smear Tech's Comments PT INR APTT D-Dimer ABG pH ABG pCO2 ABG pO2 ABG HCO3 ABG O2 Saturation ABG Base Excess VBG pH 7.41 VBG pCO2 44 VBG pO2 77 VBG HCO3 28 H VBG O2 Saturation 94.0 VBG Base Excess 3.4 Oxygen Given Sodium Potassium Chloride Carbon Dioxide Anion Gap BUN Creatinine Estim Creat Clear Calc Estimated GFR POC Glucose 132 H 151 H Random Glucose Lactic Acid Calcium Phosphorus Magnesium Ferritin Total Bilirubin Direct Bilirubin AST ALT Alkaline Phosphatase Lactate Dehydrogenase Total Creatine Kinase Troponin I High Sens C-Reactive Protein B-Natriuretic Peptide Total Protein Albumin Procalcitonin TSH Free T4 Free T3 Vancomycin Trough Coronavirus (PCR) COVID-19 (NELLY) COVID-19 Clin Com Influenza Type A (PCR) Influenza Type B (PCR) RSV RNA Qual (PCR) Blood Type Antibody Screen 11/29/20 11/29/20 11/29/20 08:22 09:17 10:32 WBC RBC Hgb Hct MCV MCH MCHC RDW Plt Count MPV Immature Gran % (Auto) Neut % (Auto) Lymph % (Auto) [place] % (Auto) Eos % (Auto) Baso % (Auto) Lymph # (Auto) [place] # (Auto) Eos # (Auto) Baso # (Auto) Abs Immat Gran (auto) Absolute Neuts (auto) Absolute Nucleated RBC Nucleated RBC % (auto) Neutrophils % (Manual) Band Neutrophils % Lymphocytes % (Manual) Atypical Lymphs % (Man) Monocytes % (Manual) Eosinophils % (Manual) Basophils % (Manual) Metamyelocytes % Myelocytes % Abs Neuts (Manual) Lymphocytes # (Manual) Atyp Lymphs # (Manual) Monocytes # (Manual) Eosinophils # (Manual) Basophils # (Manual) Metamyelocytes # Myelocytes # Nucleated RBCs Toxic Vacuolation Platelet Estimate Large Platelets Plt Morphology Comment RBC Morphology Polychromasia Hypochromasia Microcytosis Ovalocytes [place] Cells Acanthocytes (Spur) Schistocytes Smear Tech's Comments PT INR APTT D-Dimer ABG pH ABG pCO2 ABG pO2 ABG HCO3 ABG O2 Saturation ABG Base Excess VBG pH VBG pCO2 VBG pO2 VBG HCO3 VBG O2 Saturation VBG Base Excess Oxygen Given Sodium Potassium Chloride Carbon Dioxide Anion Gap BUN Creatinine Estim Creat Clear Calc Estimated GFR POC Glucose 168 H 179 H 153 H Random Glucose Lactic Acid Calcium Phosphorus Magnesium Ferritin Total Bilirubin Direct Bilirubin AST ALT Alkaline Phosphatase Lactate Dehydrogenase Total Creatine Kinase Troponin I High Sens C-Reactive Protein B-Natriuretic Peptide Total Protein Albumin Procalcitonin TSH Free T4 Free T3 Vancomycin Trough Coronavirus (PCR) COVID-19 (NELLY) COVID-19 Clin Com Influenza Type A (PCR) Influenza Type B (PCR) RSV RNA Qual (PCR) Blood Type Antibody Screen 11/29/20 11/29/20 11/29/20 11:31 12:28 13:42 WBC RBC Hgb Hct MCV MCH MCHC RDW Plt Count MPV Immature Gran % (Auto) Neut % (Auto) Lymph % (Auto) [place] % (Auto) Eos % (Auto) Baso % (Auto) Lymph # (Auto) [place] # (Auto) Eos # (Auto) Baso # (Auto) Abs Immat Gran (auto) Absolute Neuts (auto) Absolute Nucleated RBC Nucleated RBC % (auto) Neutrophils % (Manual) Band Neutrophils % Lymphocytes % (Manual) Atypical Lymphs % (Man) Monocytes % (Manual) Eosinophils % (Manual) Basophils % (Manual) Metamyelocytes % Myelocytes % Abs Neuts (Manual) Lymphocytes # (Manual) Atyp Lymphs # (Manual) Monocytes # (Manual) Eosinophils # (Manual) Basophils # (Manual) Metamyelocytes # Myelocytes # Nucleated RBCs Toxic Vacuolation Platelet Estimate Large Platelets Plt Morphology Comment RBC Morphology Polychromasia Hypochromasia Microcytosis Ovalocytes [place] Cells Acanthocytes (Spur) Schistocytes Smear Tech's Comments PT INR APTT D-Dimer ABG pH ABG pCO2 ABG pO2 ABG HCO3 ABG O2 Saturation ABG Base Excess VBG pH VBG pCO2 VBG pO2 VBG HCO3 VBG O2 Saturation VBG Base Excess Oxygen Given Sodium Potassium Chloride Carbon Dioxide Anion Gap BUN Creatinine Estim Creat Clear Calc Estimated GFR POC Glucose 157 H 149 H 138 H Random Glucose Lactic Acid Calcium Phosphorus Magnesium Ferritin Total Bilirubin Direct Bilirubin AST ALT Alkaline Phosphatase Lactate Dehydrogenase Total Creatine Kinase Troponin I High Sens C-Reactive Protein B-Natriuretic Peptide Total Protein Albumin Procalcitonin TSH Free T4 Free T3 Vancomycin Trough Coronavirus (PCR) COVID-19 (NELLY) COVID-19 Clin Com Influenza Type A (PCR) Influenza Type B (PCR) RSV RNA Qual (PCR) Blood Type Antibody Screen 11/29/20 11/29/20 11/29/20 14:47 15:38 17:04 WBC RBC Hgb Hct MCV MCH MCHC RDW Plt Count MPV Immature Gran % (Auto) Neut % (Auto) Lymph % (Auto) [place] % (Auto) Eos % (Auto) Baso % (Auto) Lymph # (Auto) [place] # (Auto) Eos # (Auto) Baso # (Auto) Abs Immat Gran (auto) Absolute Neuts (auto) Absolute Nucleated RBC Nucleated RBC % (auto) Neutrophils % (Manual) Band Neutrophils % Lymphocytes % (Manual) Atypical Lymphs % (Man) Monocytes % (Manual) Eosinophils % (Manual) Basophils % (Manual) Metamyelocytes % Myelocytes % Abs Neuts (Manual) Lymphocytes # (Manual) Atyp Lymphs # (Manual) Monocytes # (Manual) Eosinophils # (Manual) Basophils # (Manual) Metamyelocytes # Myelocytes # Nucleated RBCs Toxic Vacuolation Platelet Estimate Large Platelets Plt Morphology Comment RBC Morphology Polychromasia Hypochromasia Microcytosis Ovalocytes [place] Cells Acanthocytes (Spur) Schistocytes Smear Tech's Comments PT INR APTT D-Dimer ABG pH ABG pCO2 ABG pO2 ABG HCO3 ABG O2 Saturation ABG Base Excess VBG pH VBG pCO2 VBG pO2 VBG HCO3 VBG O2 Saturation VBG Base Excess Oxygen Given Sodium Potassium Chloride Carbon Dioxide Anion Gap BUN Creatinine Estim Creat Clear Calc Estimated GFR POC Glucose 126 H 121 H 97 Random Glucose Lactic Acid Calcium Phosphorus Magnesium Ferritin Total Bilirubin Direct Bilirubin AST ALT Alkaline Phosphatase Lactate Dehydrogenase Total Creatine Kinase Troponin I High Sens C-Reactive Protein B-Natriuretic Peptide Total Protein Albumin Procalcitonin TSH Free T4 Free T3 Vancomycin Trough Coronavirus (PCR) COVID-19 (NELLY) COVID-19 Clin Com Influenza Type A (PCR) Influenza Type B (PCR) RSV RNA Qual (PCR) Blood Type Antibody Screen 11/29/20 11/29/20 11/29/20 17:54 18:30 20:33 WBC RBC Hgb Hct MCV MCH MCHC RDW Plt Count MPV Immature Gran % (Auto) Neut % (Auto) Lymph % (Auto) [place] % (Auto) Eos % (Auto) Baso % (Auto) Lymph # (Auto) [place] # (Auto) Eos # (Auto) Baso # (Auto) Abs Immat Gran (auto) Absolute Neuts (auto) Absolute Nucleated RBC Nucleated RBC % (auto) Neutrophils % (Manual) Band Neutrophils % Lymphocytes % (Manual) Atypical Lymphs % (Man) Monocytes % (Manual) Eosinophils % (Manual) Basophils % (Manual) Metamyelocytes % Myelocytes % Abs Neuts (Manual) Lymphocytes # (Manual) Atyp Lymphs # (Manual) Monocytes # (Manual) Eosinophils # (Manual) Basophils # (Manual) Metamyelocytes # Myelocytes # Nucleated RBCs Toxic Vacuolation Platelet Estimate Large Platelets Plt Morphology Comment RBC Morphology Polychromasia Hypochromasia Microcytosis Ovalocytes [place] Cells Acanthocytes (Spur) Schistocytes Smear Tech's Comments PT INR APTT D-Dimer ABG pH ABG pCO2 ABG pO2 ABG HCO3 ABG O2 Saturation ABG Base Excess VBG pH VBG pCO2 VBG pO2 VBG HCO3 VBG O2 Saturation VBG Base Excess Oxygen Given Sodium Potassium Chloride Carbon Dioxide Anion Gap BUN Creatinine Estim Creat Clear Calc Estimated GFR POC Glucose 102 100 91 Random Glucose Lactic Acid Calcium Phosphorus Magnesium Ferritin Total Bilirubin Direct Bilirubin AST ALT Alkaline Phosphatase Lactate Dehydrogenase Total Creatine Kinase Troponin I High Sens C-Reactive Protein B-Natriuretic Peptide Total Protein Albumin Procalcitonin TSH Free T4 Free T3 Vancomycin Trough Coronavirus (PCR) COVID-19 (NELLY) COVID-19 Clin Com Influenza Type A (PCR) Influenza Type B (PCR) RSV RNA Qual (PCR) Blood Type Antibody Screen 11/29/20 11/29/20 11/29/20 21:13 22:25 23:52 WBC RBC Hgb Hct MCV MCH MCHC RDW Plt Count MPV Immature Gran % (Auto) Neut % (Auto) Lymph % (Auto) [place] % (Auto) Eos % (Auto) Baso % (Auto) Lymph # (Auto) [place] # (Auto) Eos # (Auto) Baso # (Auto) Abs Immat Gran (auto) Absolute Neuts (auto) Absolute Nucleated RBC Nucleated RBC % (auto) Neutrophils % (Manual) Band Neutrophils % Lymphocytes % (Manual) Atypical Lymphs % (Man) Monocytes % (Manual) Eosinophils % (Manual) Basophils % (Manual) Metamyelocytes % Myelocytes % Abs Neuts (Manual) Lymphocytes # (Manual) Atyp Lymphs # (Manual) Monocytes # (Manual) Eosinophils # (Manual) Basophils # (Manual) Metamyelocytes # Myelocytes # Nucleated RBCs Toxic Vacuolation Platelet Estimate Large Platelets Plt Morphology Comment RBC Morphology Polychromasia Hypochromasia Microcytosis Ovalocytes [place] Cells Acanthocytes (Spur) Schistocytes Smear Tech's Comments PT INR APTT D-Dimer ABG pH ABG pCO2 ABG pO2 ABG HCO3 ABG O2 Saturation ABG Base Excess VBG pH VBG pCO2 VBG pO2 VBG HCO3 VBG O2 Saturation VBG Base Excess Oxygen Given Sodium Potassium Chloride Carbon Dioxide Anion Gap BUN Creatinine Estim Creat Clear Calc Estimated GFR POC Glucose 96 179 H 232 H Random Glucose Lactic Acid Calcium Phosphorus Magnesium Ferritin Total Bilirubin Direct Bilirubin AST ALT Alkaline Phosphatase Lactate Dehydrogenase Total Creatine Kinase Troponin I High Sens C-Reactive Protein B-Natriuretic Peptide Total Protein Albumin Procalcitonin TSH Free T4 Free T3 Vancomycin Trough Coronavirus (PCR) COVID-19 (NELLY) COVID-19 Clin Com Influenza Type A (PCR) Influenza Type B (PCR) RSV RNA Qual (PCR) Blood Type Antibody Screen 11/30/20 11/30/20 11/30/20 00:50 00:50 01:07 WBC RBC Hgb Hct MCV MCH MCHC RDW Plt Count MPV Immature Gran % (Auto) Neut % (Auto) Lymph % (Auto) [place] % (Auto) Eos % (Auto) Baso % (Auto) Lymph # (Auto) [place] # (Auto) Eos # (Auto) Baso # (Auto) Abs Immat Gran (auto) Absolute Neuts (auto) Absolute Nucleated RBC Nucleated RBC % (auto) Neutrophils % (Manual) Band Neutrophils % Lymphocytes % (Manual) Atypical Lymphs % (Man) Monocytes % (Manual) Eosinophils % (Manual) Basophils % (Manual) Metamyelocytes % Myelocytes % Abs Neuts (Manual) Lymphocytes # (Manual) Atyp Lymphs # (Manual) Monocytes # (Manual) Eosinophils # (Manual) Basophils # (Manual) Metamyelocytes # Myelocytes # Nucleated RBCs Toxic Vacuolation Platelet Estimate Large Platelets Plt Morphology Comment RBC Morphology Polychromasia Hypochromasia Microcytosis Ovalocytes [place] Cells Acanthocytes (Spur) Schistocytes Smear Tech's Comments PT INR APTT D-Dimer ABG pH ABG pCO2 ABG pO2 ABG HCO3 ABG O2 Saturation ABG Base Excess VBG pH 7.41 VBG pCO2 33 VBG pO2 55 VBG HCO3 21 L VBG O2 Saturation 86.0 VBG Base Excess -2.2 Oxygen Given Sodium 135 Potassium 4.3 Chloride 96 Carbon Dioxide 23 Anion Gap 20 BUN 37 H Creatinine 1.09 Estim Creat Clear Calc 75.4 Estimated GFR 50 POC Glucose Random Glucose 264 H D Lactic Acid Calcium 9.2 Phosphorus Magnesium Ferritin Total Bilirubin Direct Bilirubin AST ALT Alkaline Phosphatase Lactate Dehydrogenase Total Creatine Kinase Troponin I High Sens 5.4 C-Reactive Protein B-Natriuretic Peptide Total Protein Albumin Procalcitonin TSH Free T4 Free T3 Vancomycin Trough Coronavirus (PCR) COVID-19 (NELLY) COVID-19 Clin Com Influenza Type A (PCR) Influenza Type B (PCR) RSV RNA Qual (PCR) Blood Type Antibody Screen 11/30/20 11/30/20 11/30/20 03:09 04:30 06:06 WBC RBC Hgb Hct MCV MCH MCHC RDW Plt Count MPV Immature Gran % (Auto) Neut % (Auto) Lymph % (Auto) [place] % (Auto) Eos % (Auto) Baso % (Auto) Lymph # (Auto) [place] # (Auto) Eos # (Auto) Baso # (Auto) Abs Immat Gran (auto) Absolute Neuts (auto) Absolute Nucleated RBC Nucleated RBC % (auto) Neutrophils % (Manual) Band Neutrophils % Lymphocytes % (Manual) Atypical Lymphs % (Man) Monocytes % (Manual) Eosinophils % (Manual) Basophils % (Manual) Metamyelocytes % Myelocytes % Abs Neuts (Manual) Lymphocytes # (Manual) Atyp Lymphs # (Manual) Monocytes # (Manual) Eosinophils # (Manual) Basophils # (Manual) Metamyelocytes # Myelocytes # Nucleated RBCs Toxic Vacuolation Platelet Estimate Large Platelets Plt Morphology Comment RBC Morphology Polychromasia Hypochromasia Microcytosis Ovalocytes [place] Cells Acanthocytes (Spur) Schistocytes Smear Tech's Comments PT INR APTT D-Dimer ABG pH ABG pCO2 ABG pO2 ABG HCO3 ABG O2 Saturation ABG Base Excess VBG pH VBG pCO2 VBG pO2 VBG HCO3 VBG O2 Saturation VBG Base Excess Oxygen Given Sodium Potassium Chloride Carbon Dioxide Anion Gap BUN Creatinine Estim Creat Clear Calc Estimated GFR POC Glucose 243 H 211 H 184 H Random Glucose Lactic Acid Calcium Phosphorus Magnesium Ferritin Total Bilirubin Direct Bilirubin AST ALT Alkaline Phosphatase Lactate Dehydrogenase Total Creatine Kinase Troponin I High Sens C-Reactive Protein B-Natriuretic Peptide Total Protein Albumin Procalcitonin TSH Free T4 Free T3 Vancomycin Trough Coronavirus (PCR) COVID-19 (NELLY) COVID-19 Clin Com Influenza Type A (PCR) Influenza Type B (PCR) RSV RNA Qual (PCR) Blood Type Antibody Screen 11/30/20 11/30/20 11/30/20 07:32 08:08 08:08 WBC 14.0 H RBC 4.37 Hgb 11.2 L Hct 36.6 L MCV 83.8 MCH 25.6 L MCHC 30.6 L RDW 16.5 H Plt Count 175 MPV 10.2 Immature Gran % (Auto) Cancelled Neut % (Auto) Cancelled Lymph % (Auto) Cancelled [place] % (Auto) Cancelled Eos % (Auto) Cancelled Baso % (Auto) Cancelled Lymph # (Auto) Cancelled [place] # (Auto) Cancelled Eos # (Auto) Cancelled Baso # (Auto) Cancelled Abs Immat Gran (auto) Cancelled Absolute Neuts (auto) Cancelled Absolute Nucleated RBC 0.000 Nucleated RBC % (auto) 0.0 Neutrophils % (Manual) 71 Band Neutrophils % 9 H Lymphocytes % (Manual) 8 L Atypical Lymphs % (Man) 1 Monocytes % (Manual) 2 Eosinophils % (Manual) 7 H Basophils % (Manual) 1 Metamyelocytes % 1 Myelocytes % Abs Neuts (Manual) 11.2 H Lymphocytes # (Manual) 1.1 Atyp Lymphs # (Manual) 0.1 Monocytes # (Manual) 0.3 Eosinophils # (Manual) 1.0 H Basophils # (Manual) 0.1 Metamyelocytes # 0.1 Myelocytes # Nucleated RBCs Toxic Vacuolation Platelet Estimate NORMAL Large Platelets Plt Morphology Comment NORMAL RBC Morphology NOTED Polychromasia Hypochromasia 1+ Microcytosis Ovalocytes 1+ [place] Cells Acanthocytes (Spur) 1+ Schistocytes Smear Tech's Comments PT INR APTT D-Dimer ABG pH ABG pCO2 ABG pO2 ABG HCO3 ABG O2 Saturation ABG Base Excess VBG pH VBG pCO2 VBG pO2 VBG HCO3 VBG O2 Saturation VBG Base Excess Oxygen Given Sodium 136 Potassium 3.9 Chloride 96 Carbon Dioxide 28 Anion Gap 16 BUN 37 H Creatinine 1.02 Estim Creat Clear Calc 80.6 Estimated GFR 54 POC Glucose 173 H Random Glucose 204 H Lactic Acid Calcium 9.4 Phosphorus 5.7 H Magnesium 2.0 Ferritin Total Bilirubin Direct Bilirubin AST ALT Alkaline Phosphatase Lactate Dehydrogenase Total Creatine Kinase Troponin I High Sens C-Reactive Protein B-Natriuretic Peptide Total Protein Albumin 3.5 Procalcitonin TSH Free T4 Free T3 Vancomycin Trough Coronavirus (PCR) COVID-19 (NELLY) COVID-19 Clin Com Influenza Type A (PCR) Influenza Type B (PCR) RSV RNA Qual (PCR) Blood Type Antibody Screen 11/30/20 11/30/20 11/30/20 08:12 08:51 11:32 WBC RBC Hgb Hct MCV MCH MCHC RDW Plt Count MPV Immature Gran % (Auto) Neut % (Auto) Lymph % (Auto) [place] % (Auto) Eos % (Auto) Baso % (Auto) Lymph # (Auto) [place] # (Auto) Eos # (Auto) Baso # (Auto) Abs Immat Gran (auto) Absolute Neuts (auto) Absolute Nucleated RBC Nucleated RBC % (auto) Neutrophils % (Manual) Band Neutrophils % Lymphocytes % (Manual) Atypical Lymphs % (Man) Monocytes % (Manual) Eosinophils % (Manual) Basophils % (Manual) Metamyelocytes % Myelocytes % Abs Neuts (Manual) Lymphocytes # (Manual) Atyp Lymphs # (Manual) Monocytes # (Manual) Eosinophils # (Manual) Basophils # (Manual) Metamyelocytes # Myelocytes # Nucleated RBCs Toxic Vacuolation Platelet Estimate Large Platelets Plt Morphology Comment RBC Morphology Polychromasia Hypochromasia Microcytosis Ovalocytes [place] Cells Acanthocytes (Spur) Schistocytes Smear Tech's Comments PT INR APTT D-Dimer ABG pH ABG pCO2 ABG pO2 ABG HCO3 ABG O2 Saturation ABG Base Excess VBG pH 7.31 L VBG pCO2 55 VBG pO2 37 VBG HCO3 28 H VBG O2 Saturation 53.0 VBG Base Excess 0.9 Oxygen Given Sodium Potassium Chloride Carbon Dioxide Anion Gap BUN Creatinine Estim Creat Clear Calc Estimated GFR POC Glucose 167 H 203 H Random Glucose Lactic Acid Calcium Phosphorus Magnesium Ferritin Total Bilirubin Direct Bilirubin AST ALT Alkaline Phosphatase Lactate Dehydrogenase Total Creatine Kinase Troponin I High Sens C-Reactive Protein B-Natriuretic Peptide Total Protein Albumin Procalcitonin TSH Free T4 Free T3 Vancomycin Trough Coronavirus (PCR) COVID-19 (NELLY) COVID-19 Clin Com Influenza Type A (PCR) Influenza Type B (PCR) RSV RNA Qual (PCR) Blood Type Antibody Screen 11/30/20 11/30/20 11/30/20 13:05 15:24 16:45 WBC RBC Hgb Hct MCV MCH MCHC RDW Plt Count MPV Immature Gran % (Auto) Neut % (Auto) Lymph % (Auto) [place] % (Auto) Eos % (Auto) Baso % (Auto) Lymph # (Auto) [place] # (Auto) Eos # (Auto) Baso # (Auto) Abs Immat Gran (auto) Absolute Neuts (auto) Absolute Nucleated RBC Nucleated RBC % (auto) Neutrophils % (Manual) Band Neutrophils % Lymphocytes % (Manual) Atypical Lymphs % (Man) Monocytes % (Manual) Eosinophils % (Manual) Basophils % (Manual) Metamyelocytes % Myelocytes % Abs Neuts (Manual) Lymphocytes # (Manual) Atyp Lymphs # (Manual) Monocytes # (Manual) Eosinophils # (Manual) Basophils # (Manual) Metamyelocytes # Myelocytes # Nucleated RBCs Toxic Vacuolation Platelet Estimate Large Platelets Plt Morphology Comment RBC Morphology Polychromasia Hypochromasia Microcytosis Ovalocytes [place] Cells Acanthocytes (Spur) Schistocytes Smear Tech's Comments PT INR APTT D-Dimer ABG pH ABG pCO2 ABG pO2 ABG HCO3 ABG O2 Saturation ABG Base Excess VBG pH VBG pCO2 VBG pO2 VBG HCO3 VBG O2 Saturation VBG Base Excess Oxygen Given Sodium Potassium Chloride Carbon Dioxide Anion Gap BUN Creatinine Estim Creat Clear Calc Estimated GFR POC Glucose 223 H 179 H 184 H Random Glucose Lactic Acid Calcium Phosphorus Magnesium Ferritin Total Bilirubin Direct Bilirubin AST ALT Alkaline Phosphatase Lactate Dehydrogenase Total Creatine Kinase Troponin I High Sens C-Reactive Protein B-Natriuretic Peptide Total Protein Albumin Procalcitonin TSH Free T4 Free T3 Vancomycin Trough Coronavirus (PCR) COVID-19 (NELLY) COVID-19 Clin Com Influenza Type A (PCR) Influenza Type B (PCR) RSV RNA Qual (PCR) Blood Type Antibody Screen 11/30/20 11/30/20 11/30/20 18:50 21:03 22:56 WBC RBC Hgb Hct MCV MCH MCHC RDW Plt Count MPV Immature Gran % (Auto) Neut % (Auto) Lymph % (Auto) [place] % (Auto) Eos % (Auto) Baso % (Auto) Lymph # (Auto) [place] # (Auto) Eos # (Auto) Baso # (Auto) Abs Immat Gran (auto) Absolute Neuts (auto) Absolute Nucleated RBC Nucleated RBC % (auto) Neutrophils % (Manual) Band Neutrophils % Lymphocytes % (Manual) Atypical Lymphs % (Man) Monocytes % (Manual) Eosinophils % (Manual) Basophils % (Manual) Metamyelocytes % Myelocytes % Abs Neuts (Manual) Lymphocytes # (Manual) Atyp Lymphs # (Manual) Monocytes # (Manual) Eosinophils # (Manual) Basophils # (Manual) Metamyelocytes # Myelocytes # Nucleated RBCs Toxic Vacuolation Platelet Estimate Large Platelets Plt Morphology Comment RBC Morphology Polychromasia Hypochromasia Microcytosis Ovalocytes [place] Cells Acanthocytes (Spur) Schistocytes Smear Tech's Comments PT INR APTT D-Dimer ABG pH ABG pCO2 ABG pO2 ABG HCO3 ABG O2 Saturation ABG Base Excess VBG pH VBG pCO2 VBG pO2 VBG HCO3 VBG O2 Saturation VBG Base Excess Oxygen Given Sodium Potassium Chloride Carbon Dioxide Anion Gap BUN Creatinine Estim Creat Clear Calc Estimated GFR POC Glucose 209 H 212 H 180 H Random Glucose Lactic Acid Calcium Phosphorus Magnesium Ferritin Total Bilirubin Direct Bilirubin AST ALT Alkaline Phosphatase Lactate Dehydrogenase Total Creatine Kinase Troponin I High Sens C-Reactive Protein B-Natriuretic Peptide Total Protein Albumin Procalcitonin TSH Free T4 Free T3 Vancomycin Trough Coronavirus (PCR) COVID-19 (NELLY) COVID-19 Clin Com Influenza Type A (PCR) Influenza Type B (PCR) RSV RNA Qual (PCR) Blood Type Antibody Screen 12/01/20 12/01/20 12/01/20 01:01 03:08 03:10 WBC RBC Hgb Hct MCV MCH MCHC RDW Plt Count MPV Immature Gran % (Auto) Neut % (Auto) Lymph % (Auto) [place] % (Auto) Eos % (Auto) Baso % (Auto) Lymph # (Auto) [place] # (Auto) Eos # (Auto) Baso # (Auto) Abs Immat Gran (auto) Absolute Neuts (auto) Absolute Nucleated RBC Nucleated RBC % (auto) Neutrophils % (Manual) Band Neutrophils % Lymphocytes % (Manual) Atypical Lymphs % (Man) Monocytes % (Manual) Eosinophils % (Manual) Basophils % (Manual) Metamyelocytes % Myelocytes % Abs Neuts (Manual) Lymphocytes # (Manual) Atyp Lymphs # (Manual) Monocytes # (Manual) Eosinophils # (Manual) Basophils # (Manual) Metamyelocytes # Myelocytes # Nucleated RBCs Toxic Vacuolation Platelet Estimate Large Platelets Plt Morphology Comment RBC Morphology Polychromasia Hypochromasia Microcytosis Ovalocytes [place] Cells Acanthocytes (Spur) Schistocytes Smear Tech's Comments PT INR APTT D-Dimer ABG pH ABG pCO2 ABG pO2 ABG HCO3 ABG O2 Saturation ABG Base Excess VBG pH VBG pCO2 VBG pO2 VBG HCO3 VBG O2 Saturation VBG Base Excess Oxygen Given Sodium Potassium Chloride Carbon Dioxide Anion Gap BUN Creatinine Estim Creat Clear Calc Estimated GFR POC Glucose 226 H 216 H 213 H Random Glucose Lactic Acid Calcium Phosphorus Magnesium Ferritin Total Bilirubin Direct Bilirubin AST ALT Alkaline Phosphatase Lactate Dehydrogenase Total Creatine Kinase Troponin I High Sens C-Reactive Protein B-Natriuretic Peptide Total Protein Albumin Procalcitonin TSH Free T4 Free T3 Vancomycin Trough Coronavirus (PCR) COVID-19 (NELLY) COVID-19 Clin Com Influenza Type A (PCR) Influenza Type B (PCR) RSV RNA Qual (PCR) Blood Type Antibody Screen 12/01/20 12/01/20 12/01/20 05:25 05:39 05:39 WBC 11.3 H RBC 4.25 Hgb 10.8 L Hct 36.3 L MCV 85.4 MCH 25.4 L MCHC 29.8 L RDW 16.5 H Plt Count 165 MPV 9.6 Immature Gran % (Auto) Cancelled Neut % (Auto) Cancelled Lymph % (Auto) Cancelled [place] % (Auto) Cancelled Eos % (Auto) Cancelled Baso % (Auto) Cancelled Lymph # (Auto) Cancelled [place] # (Auto) Cancelled Eos # (Auto) Cancelled Baso # (Auto) Cancelled Abs Immat Gran (auto) Cancelled Absolute Neuts (auto) Cancelled Absolute Nucleated RBC 0.020 H Nucleated RBC % (auto) 0.2 Neutrophils % (Manual) 65 Band Neutrophils % 9 H Lymphocytes % (Manual) 6 L Atypical Lymphs % (Man) Monocytes % (Manual) 6 Eosinophils % (Manual) 8 H Basophils % (Manual) Metamyelocytes % 6 Myelocytes % Abs Neuts (Manual) 8.4 H Lymphocytes # (Manual) 0.7 Atyp Lymphs # (Manual) Monocytes # (Manual) 0.7 Eosinophils # (Manual) 0.9 H Basophils # (Manual) Metamyelocytes # 0.7 Myelocytes # Nucleated RBCs Toxic Vacuolation PRESENT Platelet Estimate NORMAL Large Platelets PRESENT Plt Morphology Comment NOTED RBC Morphology NOTED Polychromasia 1+ Hypochromasia 1+ Microcytosis 1+ Ovalocytes [place] Cells Acanthocytes (Spur) 1+ Schistocytes Smear Tech's Comments PT INR APTT D-Dimer ABG pH ABG pCO2 ABG pO2 ABG HCO3 ABG O2 Saturation ABG Base Excess VBG pH VBG pCO2 VBG pO2 VBG HCO3 VBG O2 Saturation VBG Base Excess Oxygen Given Sodium 134 L Potassium 3.5 Chloride 97 Carbon Dioxide 26 Anion Gap 15 BUN 38 H Creatinine 1.05 Estim Creat Clear Calc 78.3 Estimated GFR 52 POC Glucose 202 H Random Glucose 226 H Lactic Acid Calcium 9.1 Phosphorus 5.3 H Magnesium 2.0 Ferritin Total Bilirubin 0.6 Direct Bilirubin AST 29 ALT 24 Alkaline Phosphatase 81 Lactate Dehydrogenase Total Creatine Kinase Troponin I High Sens C-Reactive Protein B-Natriuretic Peptide Total Protein 6.8 Albumin 3.2 L Procalcitonin TSH Free T4 Free T3 Vancomycin Trough Coronavirus (PCR) COVID-19 (NELLY) COVID-19 Clin Com Influenza Type A (PCR) Influenza Type B (PCR) RSV RNA Qual (PCR) Blood Type Antibody Screen 12/01/20 12/01/20 12/01/20 05:46 07:05 09:02 WBC RBC Hgb Hct MCV MCH MCHC RDW Plt Count MPV Immature Gran % (Auto) Neut % (Auto) Lymph % (Auto) [place] % (Auto) Eos % (Auto) Baso % (Auto) Lymph # (Auto) [place] # (Auto) Eos # (Auto) Baso # (Auto) Abs Immat Gran (auto) Absolute Neuts (auto) Absolute Nucleated RBC Nucleated RBC % (auto) Neutrophils % (Manual) Band Neutrophils % Lymphocytes % (Manual) Atypical Lymphs % (Man) Monocytes % (Manual) Eosinophils % (Manual) Basophils % (Manual) Metamyelocytes % Myelocytes % Abs Neuts (Manual) Lymphocytes # (Manual) Atyp Lymphs # (Manual) Monocytes # (Manual) Eosinophils # (Manual) Basophils # (Manual) Metamyelocytes # Myelocytes # Nucleated RBCs Toxic Vacuolation Platelet Estimate Large Platelets Plt Morphology Comment RBC Morphology Polychromasia Hypochromasia Microcytosis Ovalocytes [place] Cells Acanthocytes (Spur) Schistocytes Smear Tech's Comments PT INR APTT D-Dimer ABG pH ABG pCO2 ABG pO2 ABG HCO3 ABG O2 Saturation ABG Base Excess VBG pH 7.39 VBG pCO2 43 VBG pO2 52 VBG HCO3 26 VBG O2 Saturation 82.0 VBG Base Excess 1.5 Oxygen Given Sodium Potassium Chloride Carbon Dioxide Anion Gap BUN Creatinine Estim Creat Clear Calc Estimated GFR POC Glucose 188 H 202 H Random Glucose Lactic Acid Calcium Phosphorus Magnesium Ferritin Total Bilirubin Direct Bilirubin AST ALT Alkaline Phosphatase Lactate Dehydrogenase Total Creatine Kinase Troponin I High Sens C-Reactive Protein B-Natriuretic Peptide Total Protein Albumin Procalcitonin TSH Free T4 Free T3 Vancomycin Trough Coronavirus (PCR) COVID-19 (NELLY) COVID-19 Clin Com Influenza Type A (PCR) Influenza Type B (PCR) RSV RNA Qual (PCR) Blood Type Antibody Screen 12/01/20 12/01/20 12/01/20 11:01 12:56 15:08 WBC RBC Hgb Hct MCV MCH MCHC RDW Plt Count MPV Immature Gran % (Auto) Neut % (Auto) Lymph % (Auto) [place] % (Auto) Eos % (Auto) Baso % (Auto) Lymph # (Auto) [place] # (Auto) Eos # (Auto) Baso # (Auto) Abs Immat Gran (auto) Absolute Neuts (auto) Absolute Nucleated RBC Nucleated RBC % (auto) Neutrophils % (Manual) Band Neutrophils % Lymphocytes % (Manual) Atypical Lymphs % (Man) Monocytes % (Manual) Eosinophils % (Manual) Basophils % (Manual) Metamyelocytes % Myelocytes % Abs Neuts (Manual) Lymphocytes # (Manual) Atyp Lymphs # (Manual) Monocytes # (Manual) Eosinophils # (Manual) Basophils # (Manual) Metamyelocytes # Myelocytes # Nucleated RBCs Toxic Vacuolation Platelet Estimate Large Platelets Plt Morphology Comment RBC Morphology Polychromasia Hypochromasia Microcytosis Ovalocytes [place] Cells Acanthocytes (Spur) Schistocytes Smear Tech's Comments PT INR APTT D-Dimer ABG pH ABG pCO2 ABG pO2 ABG HCO3 ABG O2 Saturation ABG Base Excess VBG pH VBG pCO2 VBG pO2 VBG HCO3 VBG O2 Saturation VBG Base Excess Oxygen Given Sodium Potassium Chloride Carbon Dioxide Anion Gap BUN Creatinine Estim Creat Clear Calc Estimated GFR POC Glucose 177 H 175 H 182 H Random Glucose Lactic Acid Calcium Phosphorus Magnesium Ferritin Total Bilirubin Direct Bilirubin AST ALT Alkaline Phosphatase Lactate Dehydrogenase Total Creatine Kinase Troponin I High Sens C-Reactive Protein B-Natriuretic Peptide Total Protein Albumin Procalcitonin TSH Free T4 Free T3 Vancomycin Trough Coronavirus (PCR) COVID-19 (NELLY) COVID-19 Clin Com Influenza Type A (PCR) Influenza Type B (PCR) RSV RNA Qual (PCR) Blood Type Antibody Screen 12/01/20 12/01/20 12/01/20 19:14 19:17 21:11 WBC RBC Hgb Hct MCV MCH MCHC RDW Plt Count MPV Immature Gran % (Auto) Neut % (Auto) Lymph % (Auto) [place] % (Auto) Eos % (Auto) Baso % (Auto) Lymph # (Auto) [place] # (Auto) Eos # (Auto) Baso # (Auto) Abs Immat Gran (auto) Absolute Neuts (auto) Absolute Nucleated RBC Nucleated RBC % (auto) Neutrophils % (Manual) Band Neutrophils % Lymphocytes % (Manual) Atypical Lymphs % (Man) Monocytes % (Manual) Eosinophils % (Manual) Basophils % (Manual) Metamyelocytes % Myelocytes % Abs Neuts (Manual) Lymphocytes # (Manual) Atyp Lymphs # (Manual) Monocytes # (Manual) Eosinophils # (Manual) Basophils # (Manual) Metamyelocytes # Myelocytes # Nucleated RBCs Toxic Vacuolation Platelet Estimate Large Platelets Plt Morphology Comment RBC Morphology Polychromasia Hypochromasia Microcytosis Ovalocytes [place] Cells Acanthocytes (Spur) Schistocytes Smear Tech's Comments PT INR APTT D-Dimer 603 ABG pH ABG pCO2 ABG pO2 ABG HCO3 ABG O2 Saturation ABG Base Excess VBG pH VBG pCO2 VBG pO2 VBG HCO3 VBG O2 Saturation VBG Base Excess Oxygen Given Sodium Potassium Chloride Carbon Dioxide Anion Gap BUN Creatinine Estim Creat Clear Calc Estimated GFR POC Glucose 180 H 147 H Random Glucose Lactic Acid Calcium Phosphorus Magnesium Ferritin Total Bilirubin Direct Bilirubin AST ALT Alkaline Phosphatase Lactate Dehydrogenase Total Creatine Kinase Troponin I High Sens C-Reactive Protein B-Natriuretic Peptide Total Protein Albumin Procalcitonin TSH Free T4 Free T3 Vancomycin Trough Coronavirus (PCR) COVID-19 (NELLY) COVID-19 Clin Com Influenza Type A (PCR) Influenza Type B (PCR) RSV RNA Qual (PCR) Blood Type Antibody Screen 12/01/20 12/02/20 12/02/20 23:18 01:18 03:04 WBC RBC Hgb Hct MCV MCH MCHC RDW Plt Count MPV Immature Gran % (Auto) Neut % (Auto) Lymph % (Auto) [place] % (Auto) Eos % (Auto) Baso % (Auto) Lymph # (Auto) [place] # (Auto) Eos # (Auto) Baso # (Auto) Abs Immat Gran (auto) Absolute Neuts (auto) Absolute Nucleated RBC Nucleated RBC % (auto) Neutrophils % (Manual) Band Neutrophils % Lymphocytes % (Manual) Atypical Lymphs % (Man) Monocytes % (Manual) Eosinophils % (Manual) Basophils % (Manual) Metamyelocytes % Myelocytes % Abs Neuts (Manual) Lymphocytes # (Manual) Atyp Lymphs # (Manual) Monocytes # (Manual) Eosinophils # (Manual) Basophils # (Manual) Metamyelocytes # Myelocytes # Nucleated RBCs Toxic Vacuolation Platelet Estimate Large Platelets Plt Morphology Comment RBC Morphology Polychromasia Hypochromasia Microcytosis Ovalocytes [place] Cells Acanthocytes (Spur) Schistocytes Smear Tech's Comments PT INR APTT D-Dimer ABG pH ABG pCO2 ABG pO2 ABG HCO3 ABG O2 Saturation ABG Base Excess VBG pH VBG pCO2 VBG pO2 VBG HCO3 VBG O2 Saturation VBG Base Excess Oxygen Given Sodium Potassium Chloride Carbon Dioxide Anion Gap BUN Creatinine Estim Creat Clear Calc Estimated GFR POC Glucose 235 H 254 H 270 H Random Glucose Lactic Acid Calcium Phosphorus Magnesium Ferritin Total Bilirubin Direct Bilirubin AST ALT Alkaline Phosphatase Lactate Dehydrogenase Total Creatine Kinase Troponin I High Sens C-Reactive Protein B-Natriuretic Peptide Total Protein Albumin Procalcitonin TSH Free T4 Free T3 Vancomycin Trough Coronavirus (PCR) COVID-19 (NELLY) COVID-19 Clin Com Influenza Type A (PCR) Influenza Type B (PCR) RSV RNA Qual (PCR) Blood Type Antibody Screen 12/02/20 12/02/20 12/02/20 05:24 05:24 05:24 WBC 10.8 RBC 4.11 L Hgb 10.6 L Hct 34.4 L MCV 83.7 MCH 25.8 L MCHC 30.8 L RDW 16.7 H Plt Count 180 MPV 9.8 Immature Gran % (Auto) Cancelled Neut % (Auto) Cancelled Lymph % (Auto) Cancelled [place] % (Auto) Cancelled Eos % (Auto) Cancelled Baso % (Auto) Cancelled Lymph # (Auto) Cancelled [place] # (Auto) Cancelled Eos # (Auto) Cancelled Baso # (Auto) Cancelled Abs Immat Gran (auto) Cancelled Absolute Neuts (auto) Cancelled Absolute Nucleated RBC 0.000 Nucleated RBC % (auto) 0.0 Neutrophils % (Manual) 79 H Band Neutrophils % 2 L Lymphocytes % (Manual) 13 L Atypical Lymphs % (Man) Monocytes % (Manual) 2 Eosinophils % (Manual) 1 Basophils % (Manual) Metamyelocytes % Myelocytes % 3 Abs Neuts (Manual) 8.7 H Lymphocytes # (Manual) 1.4 Atyp Lymphs # (Manual) Monocytes # (Manual) 0.2 Eosinophils # (Manual) 0.1 Basophils # (Manual) Metamyelocytes # Myelocytes # 0.3 Nucleated RBCs Toxic Vacuolation Platelet Estimate NORMAL Large Platelets Plt Morphology Comment NORMAL RBC Morphology NOTED Polychromasia 1+ Hypochromasia 1+ Microcytosis 1+ Ovalocytes [place] Cells Acanthocytes (Spur) Schistocytes Smear Tech's Comments PT INR APTT D-Dimer ABG pH ABG pCO2 ABG pO2 ABG HCO3 ABG O2 Saturation ABG Base Excess VBG pH VBG pCO2 VBG pO2 VBG HCO3 VBG O2 Saturation VBG Base Excess Oxygen Given Sodium 136 Potassium 5.4 H D Chloride 100 Carbon Dioxide 27 Anion Gap 14 BUN 38 H Creatinine 1.08 Estim Creat Clear Calc 76.2 Estimated GFR 51 POC Glucose Random Glucose 265 H Lactic Acid Calcium 9.0 Phosphorus 5.4 H Magnesium 1.8 Ferritin 555 H Total Bilirubin Direct Bilirubin AST ALT Alkaline Phosphatase Lactate Dehydrogenase Total Creatine Kinase Troponin I High Sens C-Reactive Protein 9.13 H B-Natriuretic Peptide 202 H Total Protein Albumin Procalcitonin TSH Free T4 Free T3 Vancomycin Trough Coronavirus (PCR) COVID-19 (NELLY) COVID-19 Clin Com Influenza Type A (PCR) Influenza Type B (PCR) RSV RNA Qual (PCR) Blood Type Antibody Screen 12/02/20 12/02/20 12/02/20 05:24 05:25 05:26 WBC RBC Hgb Hct MCV MCH MCHC RDW Plt Count MPV Immature Gran % (Auto) Neut % (Auto) Lymph % (Auto) [place] % (Auto) Eos % (Auto) Baso % (Auto) Lymph # (Auto) [place] # (Auto) Eos # (Auto) Baso # (Auto) Abs Immat Gran (auto) Absolute Neuts (auto) Absolute Nucleated RBC Nucleated RBC % (auto) Neutrophils % (Manual) Band Neutrophils % Lymphocytes % (Manual) Atypical Lymphs % (Man) Monocytes % (Manual) Eosinophils % (Manual) Basophils % (Manual) Metamyelocytes % Myelocytes % Abs Neuts (Manual) Lymphocytes # (Manual) Atyp Lymphs # (Manual) Monocytes # (Manual) Eosinophils # (Manual) Basophils # (Manual) Metamyelocytes # Myelocytes # Nucleated RBCs Toxic Vacuolation Platelet Estimate Large Platelets Plt Morphology Comment RBC Morphology Polychromasia Hypochromasia Microcytosis Ovalocytes [place] Cells Acanthocytes (Spur) Schistocytes Smear Tech's Comments PT INR APTT D-Dimer ABG pH ABG pCO2 ABG pO2 ABG HCO3 ABG O2 Saturation ABG Base Excess VBG pH 7.32 VBG pCO2 52 VBG pO2 62 VBG HCO3 27 H VBG O2 Saturation 89.0 VBG Base Excess 0.8 Oxygen Given Sodium Potassium Chloride Carbon Dioxide Anion Gap BUN Creatinine Estim Creat Clear Calc Estimated GFR POC Glucose 158 H Random Glucose Lactic Acid Calcium Phosphorus Magnesium Ferritin Total Bilirubin Direct Bilirubin AST ALT Alkaline Phosphatase Lactate Dehydrogenase Total Creatine Kinase Troponin I High Sens C-Reactive Protein B-Natriuretic Peptide Total Protein Albumin Procalcitonin 0.14 TSH Free T4 Free T3 Vancomycin Trough Coronavirus (PCR) COVID-19 (NELLY) COVID-19 Clin Com Influenza Type A (PCR) Influenza Type B (PCR) RSV RNA Qual (PCR) Blood Type Antibody Screen 12/02/20 12/02/20 12/02/20 07:26 09:06 11:04 WBC RBC Hgb Hct MCV MCH MCHC RDW Plt Count MPV Immature Gran % (Auto) Neut % (Auto) Lymph % (Auto) [place] % (Auto) Eos % (Auto) Baso % (Auto) Lymph # (Auto) [place] # (Auto) Eos # (Auto) Baso # (Auto) Abs Immat Gran (auto) Absolute Neuts (auto) Absolute Nucleated RBC Nucleated RBC % (auto) Neutrophils % (Manual) Band Neutrophils % Lymphocytes % (Manual) Atypical Lymphs % (Man) Monocytes % (Manual) Eosinophils % (Manual) Basophils % (Manual) Metamyelocytes % Myelocytes % Abs Neuts (Manual) Lymphocytes # (Manual) Atyp Lymphs # (Manual) Monocytes # (Manual) Eosinophils # (Manual) Basophils # (Manual) Metamyelocytes # Myelocytes # Nucleated RBCs Toxic Vacuolation Platelet Estimate Large Platelets Plt Morphology Comment RBC Morphology Polychromasia Hypochromasia Microcytosis Ovalocytes [place] Cells Acanthocytes (Spur) Schistocytes Smear Tech's Comments PT INR APTT D-Dimer ABG pH ABG pCO2 ABG pO2 ABG HCO3 ABG O2 Saturation ABG Base Excess VBG pH VBG pCO2 VBG pO2 VBG HCO3 VBG O2 Saturation VBG Base Excess Oxygen Given Sodium Potassium Chloride Carbon Dioxide Anion Gap BUN Creatinine Estim Creat Clear Calc Estimated GFR POC Glucose 215 H 273 H 271 H Random Glucose Lactic Acid Calcium Phosphorus Magnesium Ferritin Total Bilirubin Direct Bilirubin AST ALT Alkaline Phosphatase Lactate Dehydrogenase Total Creatine Kinase Troponin I High Sens C-Reactive Protein B-Natriuretic Peptide Total Protein Albumin Procalcitonin TSH Free T4 Free T3 Vancomycin Trough Coronavirus (PCR) COVID-19 (NELLY) COVID-19 Clin Com Influenza Type A (PCR) Influenza Type B (PCR) RSV RNA Qual (PCR) Blood Type Antibody Screen 12/02/20 12/02/20 12/02/20 14:24 15:06 16:36 WBC RBC Hgb Hct MCV MCH MCHC RDW Plt Count MPV Immature Gran % (Auto) Neut % (Auto) Lymph % (Auto) [place] % (Auto) Eos % (Auto) Baso % (Auto) Lymph # (Auto) [place] # (Auto) Eos # (Auto) Baso # (Auto) Abs Immat Gran (auto) Absolute Neuts (auto) Absolute Nucleated RBC Nucleated RBC % (auto) Neutrophils % (Manual) Band Neutrophils % Lymphocytes % (Manual) Atypical Lymphs % (Man) Monocytes % (Manual) Eosinophils % (Manual) Basophils % (Manual) Metamyelocytes % Myelocytes % Abs Neuts (Manual) Lymphocytes # (Manual) Atyp Lymphs # (Manual) Monocytes # (Manual) Eosinophils # (Manual) Basophils # (Manual) Metamyelocytes # Myelocytes # Nucleated RBCs Toxic Vacuolation Platelet Estimate Large Platelets Plt Morphology Comment RBC Morphology Polychromasia Hypochromasia Microcytosis Ovalocytes [place] Cells Acanthocytes (Spur) Schistocytes Smear Tech's Comments PT INR APTT D-Dimer ABG pH ABG pCO2 ABG pO2 ABG HCO3 ABG O2 Saturation ABG Base Excess VBG pH VBG pCO2 VBG pO2 VBG HCO3 VBG O2 Saturation VBG Base Excess Oxygen Given Sodium Potassium Chloride Carbon Dioxide Anion Gap BUN Creatinine Estim Creat Clear Calc Estimated GFR POC Glucose 309 H 323 H 302 H Random Glucose Lactic Acid Calcium Phosphorus Magnesium Ferritin Total Bilirubin Direct Bilirubin AST ALT Alkaline Phosphatase Lactate Dehydrogenase Total Creatine Kinase Troponin I High Sens C-Reactive Protein B-Natriuretic Peptide Total Protein Albumin Procalcitonin TSH Free T4 Free T3 Vancomycin Trough Coronavirus (PCR) COVID-19 (NELLY) COVID-19 Clin Com Influenza Type A (PCR) Influenza Type B (PCR) RSV RNA Qual (PCR) Blood Type Antibody Screen 12/02/20 12/02/20 12/02/20 16:38 16:38 21:34 WBC RBC Hgb Hct MCV MCH MCHC RDW Plt Count MPV Immature Gran % (Auto) Neut % (Auto) Lymph % (Auto) [place] % (Auto) Eos % (Auto) Baso % (Auto) Lymph # (Auto) [place] # (Auto) Eos # (Auto) Baso # (Auto) Abs Immat Gran (auto) Absolute Neuts (auto) Absolute Nucleated RBC Nucleated RBC % (auto) Neutrophils % (Manual) Band Neutrophils % Lymphocytes % (Manual) Atypical Lymphs % (Man) Monocytes % (Manual) Eosinophils % (Manual) Basophils % (Manual) Metamyelocytes % Myelocytes % Abs Neuts (Manual) Lymphocytes # (Manual) Atyp Lymphs # (Manual) Monocytes # (Manual) Eosinophils # (Manual) Basophils # (Manual) Metamyelocytes # Myelocytes # Nucleated RBCs Toxic Vacuolation Platelet Estimate Large Platelets Plt Morphology Comment RBC Morphology Polychromasia Hypochromasia Microcytosis Ovalocytes Paige Cells Acanthocytes (Spur) Schistocytes Smear Tech's Comments PT 14.1 H INR 1.2 H APTT D-Dimer ABG pH ABG pCO2 ABG pO2 ABG HCO3 ABG O2 Saturation ABG Base Excess VBG pH VBG pCO2 VBG pO2 VBG HCO3 VBG O2 Saturation VBG Base Excess Oxygen Given Sodium Potassium Chloride Carbon Dioxide Anion Gap BUN Creatinine Estim Creat Clear Calc Estimated GFR POC Glucose 301 H Random Glucose Lactic Acid Calcium Phosphorus Magnesium Ferritin Total Bilirubin Direct Bilirubin AST ALT Alkaline Phosphatase Lactate Dehydrogenase Total Creatine Kinase Troponin I High Sens C-Reactive Protein B-Natriuretic Peptide Total Protein Albumin Procalcitonin TSH Free T4 Free T3 Vancomycin Trough Coronavirus (PCR) COVID-19 (NELLY) COVID-19 Clin Com Influenza Type A (PCR) Influenza Type B (PCR) RSV RNA Qual (PCR) Blood Type A Positive Antibody Screen NEGATIVE 12/02/20 12/03/20 12/03/20 23:31 02:05 03:50 WBC RBC Hgb Hct MCV MCH MCHC RDW Plt Count MPV Immature Gran % (Auto) Neut % (Auto) Lymph % (Auto) [place] % (Auto) Eos % (Auto) Baso % (Auto) Lymph # (Auto) [place] # (Auto) Eos # (Auto) Baso # (Auto) Abs Immat Gran (auto) Absolute Neuts (auto) Absolute Nucleated RBC Nucleated RBC % (auto) Neutrophils % (Manual) Band Neutrophils % Lymphocytes % (Manual) Atypical Lymphs % (Man) Monocytes % (Manual) Eosinophils % (Manual) Basophils % (Manual) Metamyelocytes % Myelocytes % Abs Neuts (Manual) Lymphocytes # (Manual) Atyp Lymphs # (Manual) Monocytes # (Manual) Eosinophils # (Manual) Basophils # (Manual) Metamyelocytes # Myelocytes # Nucleated RBCs Toxic Vacuolation Platelet Estimate Large Platelets Plt Morphology Comment RBC Morphology Polychromasia Hypochromasia Microcytosis Ovalocytes [place] Cells Acanthocytes (Spur) Schistocytes Smear Tech's Comments PT INR APTT D-Dimer ABG pH ABG pCO2 ABG pO2 ABG HCO3 ABG O2 Saturation ABG Base Excess VBG pH VBG pCO2 VBG pO2 VBG HCO3 VBG O2 Saturation VBG Base Excess Oxygen Given Sodium Potassium Chloride Carbon Dioxide Anion Gap BUN Creatinine Estim Creat Clear Calc Estimated GFR POC Glucose 287 H 227 H 195 H Random Glucose Lactic Acid Calcium Phosphorus Magnesium Ferritin Total Bilirubin Direct Bilirubin AST ALT Alkaline Phosphatase Lactate Dehydrogenase Total Creatine Kinase Troponin I High Sens C-Reactive Protein B-Natriuretic Peptide Total Protein Albumin Procalcitonin TSH Free T4 Free T3 Vancomycin Trough Coronavirus (PCR) COVID-19 (NELLY) COVID-19 Clin Com Influenza Type A (PCR) Influenza Type B (PCR) RSV RNA Qual (PCR) Blood Type Antibody Screen 12/03/20 12/03/20 12/03/20 05:30 05:30 05:56 WBC 11.3 H RBC 3.95 L Hgb 10.3 L Hct 33.5 L MCV 84.8 MCH 26.1 L MCHC 30.7 L RDW 16.9 H Plt Count 176 MPV 9.7 Immature Gran % (Auto) Cancelled Neut % (Auto) Cancelled Lymph % (Auto) Cancelled [place] % (Auto) Cancelled Eos % (Auto) Cancelled Baso % (Auto) Cancelled Lymph # (Auto) Cancelled [place] # (Auto) Cancelled Eos # (Auto) Cancelled Baso # (Auto) Cancelled Abs Immat Gran (auto) Cancelled Absolute Neuts (auto) Cancelled Absolute Nucleated RBC 0.000 Nucleated RBC % (auto) 0.0 Neutrophils % (Manual) 81 H Band Neutrophils % 4 Lymphocytes % (Manual) 5 L Atypical Lymphs % (Man) 1 Monocytes % (Manual) 6 Eosinophils % (Manual) Basophils % (Manual) Metamyelocytes % 2 Myelocytes % 1 Abs Neuts (Manual) 9.6 H Lymphocytes # (Manual) 0.6 Atyp Lymphs # (Manual) 0.1 Monocytes # (Manual) 0.7 Eosinophils # (Manual) Basophils # (Manual) Metamyelocytes # 0.2 Myelocytes # 0.1 Nucleated RBCs Toxic Vacuolation PRESENT Platelet Estimate NORMAL Large Platelets PRESENT Plt Morphology Comment NOTED RBC Morphology NOTED Polychromasia 1+ Hypochromasia 1+ Microcytosis 1+ Ovalocytes [place] Cells Acanthocytes (Spur) Schistocytes Smear Tech's Comments PT INR APTT D-Dimer ABG pH ABG pCO2 ABG pO2 ABG HCO3 ABG O2 Saturation ABG Base Excess VBG pH VBG pCO2 VBG pO2 VBG HCO3 VBG O2 Saturation VBG Base Excess Oxygen Given Sodium 134 L Potassium 4.8 Chloride 98 Carbon Dioxide 26 Anion Gap 15 BUN 59 H D Creatinine 1.28 Estim Creat Clear Calc 64.3 Estimated GFR 42 POC Glucose 190 H Random Glucose 199 H Lactic Acid Calcium 8.9 Phosphorus 6.9 H Magnesium 2.1 Ferritin Total Bilirubin Direct Bilirubin AST ALT Alkaline Phosphatase Lactate Dehydrogenase Total Creatine Kinase Troponin I High Sens C-Reactive Protein B-Natriuretic Peptide Total Protein Albumin Procalcitonin TSH Free T4 Free T3 Vancomycin Trough Coronavirus (PCR) COVID-19 (NELLY) COVID-19 Clin Com Influenza Type A (PCR) Influenza Type B (PCR) RSV RNA Qual (PCR) Blood Type Antibody Screen 12/03/20 12/03/20 12/03/20 07:23 07:34 10:51 WBC RBC Hgb Hct MCV MCH MCHC RDW Plt Count MPV Immature Gran % (Auto) Neut % (Auto) Lymph % (Auto) [place] % (Auto) Eos % (Auto) Baso % (Auto) Lymph # (Auto) [place] # (Auto) Eos # (Auto) Baso # (Auto) Abs Immat Gran (auto) Absolute Neuts (auto) Absolute Nucleated RBC Nucleated RBC % (auto) Neutrophils % (Manual) Band Neutrophils % Lymphocytes % (Manual) Atypical Lymphs % (Man) Monocytes % (Manual) Eosinophils % (Manual) Basophils % (Manual) Metamyelocytes % Myelocytes % Abs Neuts (Manual) Lymphocytes # (Manual) Atyp Lymphs # (Manual) Monocytes # (Manual) Eosinophils # (Manual) Basophils # (Manual) Metamyelocytes # Myelocytes # Nucleated RBCs Toxic Vacuolation Platelet Estimate Large Platelets Plt Morphology Comment RBC Morphology Polychromasia Hypochromasia Microcytosis Ovalocytes [place] Cells Acanthocytes (Spur) Schistocytes Smear Tech's Comments PT INR APTT D-Dimer ABG pH ABG pCO2 ABG pO2 ABG HCO3 ABG O2 Saturation ABG Base Excess VBG pH VBG pCO2 VBG pO2 VBG HCO3 VBG O2 Saturation VBG Base Excess Oxygen Given Sodium Potassium Chloride Carbon Dioxide Anion Gap BUN Creatinine Estim Creat Clear Calc Estimated GFR POC Glucose 196 H 231 H Random Glucose Lactic Acid Calcium Phosphorus Magnesium Ferritin Total Bilirubin Direct Bilirubin AST ALT Alkaline Phosphatase Lactate Dehydrogenase Total Creatine Kinase Troponin I High Sens C-Reactive Protein B-Natriuretic Peptide Total Protein Albumin Procalcitonin TSH Free T4 Free T3 Vancomycin Trough Coronavirus (PCR) COVID-19 (NELLY) Negative COVID-19 Clin Com See Note Influenza Type A (PCR) Influenza Type B (PCR) RSV RNA Qual (PCR) Blood Type Antibody Screen Airway Other: intubated Assessment and Plan Assessment Anesthesia Assessment: Anesthesia Plan Discussed Final Anesthetic Review NPO: Yes ASA Class: IV Final Preanesthetic Review: No Changes in Pt Med Stat, Meds/Allgs Chart Reviewed, Consent Obtained/Reviewed and Anes Risks/Benef Reviewed Patient Risk: High Procedure Risk: Intermediate Anesthetic Plan Anesthetic Plan: GA Disposition: Inp. Admit - ICU
[2020-12-03 18:06] LABS: Glucose, Whole Blood 276 mg/dL (60-115)
--- NOTE | 2020-12-03 18:13 | P.BOP_ITS ---
Brief Operative Note Date of Service: 12/03/20 Pre-op diagnosis: Acute respiratory distress syndrome secondary to COVID-19 Post-op diagnosis: same Procedure: Percutaneous tracheostomy and percutaneous PEG tube placement Surgeon: Alix Mendoza MD Anesthesia: HSELBYA Human Performance Consultant: Kath Ford Estimated blood loss (mL): 0 Pathology: none sent Condition: critical Disposition: ICU
[2020-12-03 18:49] LABS: Glucose, Whole Blood 221 mg/dL (60-115)
[2020-12-03] MEDS: Melatonin 3 MG TABLET 9 MG G-TUBE (20:00)
--- NOTE | 2020-12-03 20:57 | PM.CCPN ---
Subjective Subjective Date of Service: 12/04/20 Interval History: Interval History: Mrs. Carr was admitted to the ICU on November 18 with acute respiratory failure secondary to COVID pneumonia. TODAY she underwent a tracheostomy and PEG placement in the OR by Dr. Mendoza, according to him there was copious amounts of thick secretions. No surgical complications reported. She is a 65-year-old F with PMHx of type 2 diabetes w CKD (last baseline BUN/creat 37/1.3 on 08/03/20), HTN, morbid obesity, ischemic heart disease, chronic diastolic CHF, obstructive sleep apnea, obesity/hypoventilation syndrome noncompliant with CPAP, along with: Hyperlipidemia, Chronic pancreatitis, COPD, Degenerative arthritis of knees, Diverticulosis, Dysuria, Memory loss, Pulmonary embolism, Right heart failure (secondary to left heart failure), SVT, Diabetic polyneuropathy, and Vertigo. She presented to the ED on Nov 09 with h/o one week of SOB and cough. On arrival, Sat was 50% on room air. COVID PCR was positive. She was put on HFNC and admitted to Medicine. She was given Decadron and Remdesivir and 10 days of ceftiriaxone. She required brief NIV w CPAP/BiPAP betw Nov 13-. On November 18, she failed NIV bec of hypoxemia and was brought down to the ICU and intubated. On November 22, her WBC spiked and a sputum showed 4+ polys, 4+ GNRs, and culture grew stenotrophomonas. She was given three days of Zosyn. She had an episode of AFib with RVR requiring cardioversion, now controlled on propafenone and metoprolol. Had also been on Eliquis, which was stopped 2? bloody tracheal secretions. She has been afebrile almost the entire time she has been the here, except for a few isolated temperature spikes, the last one was a single temperature to 102 degrees on November 29. 2 days ago, her WBC bumped to 14 and she was started on Levaquin. Peak DDimer was 4295 on November 18, Ferritin 1887 on Nov 09, CRP 20 on November 23, PCT 0.3 on November 18. EXAM: 125/61; 86; 24; 95.7 F; 89% on Vent settings via Tracheostomy AC of 18/ 500 / 8 Fio2 80 % General: sedated and vented Skin: Intact, no lesions or rash HEENT: Normocephalic, atraumatic, extraocular movements intact, neck is supple, no lymphadenopathy. Buccal mucosa moist. Throat midline. Cardiac: Clear S1-S2, no murmurs rubs or gallops. Pulmonary: Diminished and coarsed bilaterally. Abdomen: Protuberant, positive bowel sounds in all 4 quadrants. Soft Musculoskeletal: No cough wheeling or crepitus on passive ROM of the major joints. No Edema of the legs and no Asymetry. Neurologic: As above, no new focal deficits. Vascular: 2+ pulses upper and lower extremities distally. LABORATORY DATA: wbc 11.3; hg 10.3, hct 33.5, plts 176; na 134,l K+ 4.8, chl 98, CO2 26; Bun 59 (increased), Cr 1.28 (1.08). VBG ph 7.2/ 52/ 62/27 sat 89 base Ex 0.8 IMAGING: CXR done 11/30 shows diffuse moderate-severe bilat ARDS. MICROBIOLOGY: Sputum GS from today showsf 2+ polys, no orgs. Culture is growing 3+ GNR. Last sputum from 11/22 showed 4+ polys, 4+ GNR, and grew stenotrophomonas. Assesment and PLAN : 1. Underlying morbid obesity, DM, and CAD. 2. Underlying right heart failure 2? morbid obesity and MOISÉS. 3. Pneumonia and ARDS due to COVID-19. Symptom onset approximately Nov 02==== POST Tracheostomy 4. Acute hypoxic respiratory failure secondary to above. She?s already had Remdesivir and ten days of Decadron. Started 12/02 on Solumedrol 80mg bid, Vit C, Vit D, thiamine, and melatonin. Peep increased to 8 and maybe back to 10 as her Sat is about 88 % on current vent settings. 5. AFib w/ RVR. Adequately controlled. If she has another run, I would prob restart her Eliquis. 6. H/o CHF does not appear to be fluid overloaded now 7. Renal. ?Prerenal? ratio of her indices may be 2? RHF; dc Lasix and monitor renal function closely as there is an increase in the BUN.Cr ratio already 8. Diabetes: Continue insulin drip. Dose requirement is increasing bec of the solu-Medrol. 9. ID: Started doxycycline yest bec of elevated WBC. Remains afebrile. 10. Nutrtition. On full dose tube feeds======= POST PEG TUBE PLACEMENT 11. DVT prophylaxis: Heparin 5000 u TID. Critical care time: 60 min. Physical Exam Vital Signs: Vital Signs: Last Vital Signs Temp 95.7 F L 12/03/20 20:50 Pulse 86 12/03/20 20:50 Resp 24 H 12/03/20 20:50 BP 125/61 12/03/20 20:50 Pulse Ox 89 L 12/03/20 20:50 Body Mass Index 53.2 Objective Data Labs CBC & Chem 7: 12/03/20 05:30 12/03/20 05:30 Labs: Laboratory Results - last 24 hr 12/02/20 12/02/20 12/03/20 21:34 23:31 02:05 WBC RBC Hgb Hct MCV MCH MCHC RDW Plt Count MPV Immature Gran % (Auto) Neut % (Auto) Lymph % (Auto) [place] % (Auto) Eos % (Auto) Baso % (Auto) Lymph # (Auto) [place] # (Auto) Eos # (Auto) Baso # (Auto) Abs Immat Gran (auto) Absolute Neuts (auto) Absolute Nucleated RBC Nucleated RBC % (auto) Neutrophils % (Manual) Band Neutrophils % Lymphocytes % (Manual) Atypical Lymphs % (Man) Monocytes % (Manual) Metamyelocytes % Myelocytes % Abs Neuts (Manual) Lymphocytes # (Manual) Atyp Lymphs # (Manual) Monocytes # (Manual) Metamyelocytes # Myelocytes # Toxic Vacuolation Platelet Estimate Large Platelets Plt Morphology Comment RBC Morphology Polychromasia Hypochromasia Microcytosis Sodium Potassium Chloride Carbon Dioxide Anion Gap BUN Creatinine Estim Creat Clear Calc Estimated GFR POC Glucose 301 H 287 H 227 H Random Glucose Calcium Phosphorus Magnesium COVID-19 (NELLY) COVID-19 Clin Com 12/03/20 12/03/20 12/03/20 03:50 05:30 05:30 WBC 11.3 H RBC 3.95 L Hgb 10.3 L Hct 33.5 L MCV 84.8 MCH 26.1 L MCHC 30.7 L RDW 16.9 H Plt Count 176 MPV 9.7 Immature Gran % (Auto) Cancelled Neut % (Auto) Cancelled Lymph % (Auto) Cancelled [place] % (Auto) Cancelled Eos % (Auto) Cancelled Baso % (Auto) Cancelled Lymph # (Auto) Cancelled [place] # (Auto) Cancelled Eos # (Auto) Cancelled Baso # (Auto) Cancelled Abs Immat Gran (auto) Cancelled Absolute Neuts (auto) Cancelled Absolute Nucleated RBC 0.000 Nucleated RBC % (auto) 0.0 Neutrophils % (Manual) 81 H Band Neutrophils % 4 Lymphocytes % (Manual) 5 L Atypical Lymphs % (Man) 1 Monocytes % (Manual) 6 Metamyelocytes % 2 Myelocytes % 1 Abs Neuts (Manual) 9.6 H Lymphocytes # (Manual) 0.6 Atyp Lymphs # (Manual) 0.1 Monocytes # (Manual) 0.7 Metamyelocytes # 0.2 Myelocytes # 0.1 Toxic Vacuolation PRESENT Platelet Estimate NORMAL Large Platelets PRESENT Plt Morphology Comment NOTED RBC Morphology NOTED Polychromasia 1+ Hypochromasia 1+ Microcytosis 1+ Sodium 134 L Potassium 4.8 Chloride 98 Carbon Dioxide 26 Anion Gap 15 BUN 59 H D Creatinine 1.28 Estim Creat Clear Calc 64.3 Estimated GFR 42 POC Glucose 195 H Random Glucose 199 H Calcium 8.9 Phosphorus 6.9 H Magnesium 2.1 COVID-19 (NELLY) COVID-19 Clin Com 12/03/20 12/03/20 12/03/20 05:56 07:23 07:34 WBC RBC Hgb Hct MCV MCH MCHC RDW Plt Count MPV Immature Gran % (Auto) Neut % (Auto) Lymph % (Auto) [place] % (Auto) Eos % (Auto) Baso % (Auto) Lymph # (Auto) [place] # (Auto) Eos # (Auto) Baso # (Auto) Abs Immat Gran (auto) Absolute Neuts (auto) Absolute Nucleated RBC Nucleated RBC % (auto) Neutrophils % (Manual) Band Neutrophils % Lymphocytes % (Manual) Atypical Lymphs % (Man) Monocytes % (Manual) Metamyelocytes % Myelocytes % Abs Neuts (Manual) Lymphocytes # (Manual) Atyp Lymphs # (Manual) Monocytes # (Manual) Metamyelocytes # Myelocytes # Toxic Vacuolation Platelet Estimate Large Platelets Plt Morphology Comment RBC Morphology Polychromasia Hypochromasia Microcytosis Sodium Potassium Chloride Carbon Dioxide Anion Gap BUN Creatinine Estim Creat Clear Calc Estimated GFR POC Glucose 190 H 196 H Random Glucose Calcium Phosphorus Magnesium COVID-19 (NELLY) Negative COVID-19 Clin Com See Note 12/03/20 12/03/20 12/03/20 10:51 15:34 18:44 WBC RBC Hgb Hct MCV MCH MCHC RDW Plt Count MPV Immature Gran % (Auto) Neut % (Auto) Lymph % (Auto) [place] % (Auto) Eos % (Auto) Baso % (Auto) Lymph # (Auto) [place] # (Auto) Eos # (Auto) Baso # (Auto) Abs Immat Gran (auto) Absolute Neuts (auto) Absolute Nucleated RBC Nucleated RBC % (auto) Neutrophils % (Manual) Band Neutrophils % Lymphocytes % (Manual) Atypical Lymphs % (Man) Monocytes % (Manual) Metamyelocytes % Myelocytes % Abs Neuts (Manual) Lymphocytes # (Manual) Atyp Lymphs # (Manual) Monocytes # (Manual) Metamyelocytes # Myelocytes # Toxic Vacuolation Platelet Estimate Large Platelets Plt Morphology Comment RBC Morphology Polychromasia Hypochromasia Microcytosis Sodium Potassium Chloride Carbon Dioxide Anion Gap BUN Creatinine Estim Creat Clear Calc Estimated GFR POC Glucose 231 H 276 H 221 H Random Glucose Calcium Phosphorus Magnesium COVID-19 (NELLY) COVID-19 Clin Com Microbiology Microbiology Results: Microbiology 12/01/20 14:39 Sputum - Suctioned Gram Stain - Final 12/01/20 14:39 Sputum - Suctioned Sputum Culture - Final Stenotrophomonas maltophilia 11/22/20 08:15 Sputum - Suctioned Gram Stain - Final 11/22/20 08:15 Sputum - Suctioned Sputum Culture - Final Stenotrophomonas maltophilia 11/09/20 19:57 Blood - Venous Blood Culture - Final Coag negative Staphylococcus 11/09/20 20:54 Blood - Venous Blood Culture - Final No growth after 5 days. Progress Note: A&P Time Spent With Patient Time: Total time spent is greater than 50% in coordination of care (as documented) at patient's floor/unit and/or counseling patient: Total time spent with greater than 50% in coordination of care (as documented) at patient's floor/unit and/or counseling patient:: 60
[2020-12-03 21:17] LABS: VBG Base Excess 0.8 mmol/L; VBG HCO3 29 mmol/L (22-26); VBG pCO2 67 mmHg; VBG pH 7.25 (7.32-7.43); VBG pO2 67 mmHg
[2020-12-03 21:36] LABS: Venous Blood Gas Refer to POC result
[2020-12-03 23:08] LABS: Glucose, Whole Blood 132 mg/dL (60-115)
[2020-12-04] VITALS (31 sets, daily range): BP systolic 95–139; BP diastolic 36–60; PULSE 19–103; RESP 16–23; TEMP 36.2–36.8; O2SAT 91–100
[2020-12-04] MEDS: Insulin Regular/NS 100 UNIT/100 ML PLAST..BAG IVCONT (00:40)
[2020-12-04] MEDS: Doxycycline Hyclate 100 MG in 0.9 % Sodium Chloride 250 ML 166.67 MG IV ×3 (00:40→23:25)
[2020-12-04] MEDS: Ascorbic Acid 500 MG TABLET 1000 MG G-TUBE ×5 (00:41→23:24)
[2020-12-04] MEDS: propofoL 1,000 MG/100 ML VIAL 17.96 MG IVCONT ×4 (00:41→18:44)
[2020-12-04] MEDS: 0.9 % Sodium Chloride Flush 3 ML SYRINGE IVFLUSH (00:42)
[2020-12-04] MEDS: fentaNYL citrate/NS 1,000 MCG/100 ML PLAST..BAG 5 MCG IVCONT ×2 (00:52→23:24)
--- NOTE | 2020-12-04 02:45 | OP_ITS ---
SURGEON: Alix Mendoza MD PREOPERATIVE DIAGNOSIS: Respiratory failure. POSTOPERATIVE DIAGNOSIS: Respiratory failure. PROCEDURE PERFORMED: Percutaneous tracheostomy and PEG tube placement. ESTIMATED BLOOD LOSS: Minimal. COMPLICATIONS: ANESTHESIA: ASSISTANTS: DAVID Fry. SPECIMENS: None. OPERATION IN DETAIL: The patient was brought from the ICU to the operating room and on her ICU bed. She was positioned with her neck extended and a time-out was performed confirming the correct patient, site and procedure. The neck and upper chest were then widely prepped and draped in standard sterile fashion. The bronchoscopy was done by the bedside retail event assistant, suctioning out as much of the thick secretions as possibly could be done. We then took the cuff down on the endotracheal tube and brought the endotracheal tube back as far as we could see; however, we had significant amount of difficulty with secretions within the tube. We did have to stop several times and reinsert the tube and bag her back up to the 90s saturation ellis. We did this several times and then the cuff on the endotracheal tube have stopped working, so the patient was then reintubated with a new endotracheal tube, 8.5 [place]. Once this was done and after at least an hour of trying, we finally were able to take the balloon cuff down to bring the endotracheal tube back to just below the vocal cords with the scope and proximal trachea in view. A needle with catheter on it was then inserted under view with the bronchoscope. The needle was removed, and catheter was left in place. The wire was then inserted through the catheter and was visualized to go down toward the dee dee. The first dilator was then placed over the wire followed by a second smaller dilator and then the larger Rhino dilator was placed over that dilator and then was dilated up to a 36-[place] again all under vision. Once this was done, the tracheostomy tube was then inserted over the wire and the inner dilator without much difficulty. The inner dilator and wire were then removed and the cuff was blown up. First, the bronchoscopy was done directly through the tracheostomy, suctioning out some secretions. There was no bleeding. We did end up visualizing the dee dee, which were about 3 cm above. The bronchoscope was then removed and she was connected to the ventilator with excellent volumes and return of normal oxygen saturations. The tracheostomy was then sewed in with nylon sutures. A dressing was applied and the trach ties were applied. This concluded this portion of the operation. I then placed an EGD scope through the oropharynx and into the esophagus without much difficulty. This was brought down into the stomach, visualizing the pylorus, first portion of the duodenum and retroflexing up to the GE junction. There were no mucosal lesions in the esophagus or anywhere else and there was a small hiatal hernia appreciated. Using a transilluminator and a scope, we were able to transilluminate through the abdominal wall. A yousif was made at that point, and the bedside retail event assistant made a small greg incision, and a needle and catheter were inserted under vision with the scope into the stomach. The needle was removed with the catheter left in place. A wire was then placed through the catheter and the catheter was pulled back. The wire was then snared through the scope and the scope and wire were then pulled back up and out through the mouth. The wire was then interlocked with the PEG tube and from the abdomen. By the bedside retail event assistant, the PEG tube was pulled back through the esophagus and up against the stomach. The scope followed, and PEG tube ended up 3 cm at the skin. It looked in excellent position on endoscopy. The air was then evacuated. The mucosa of the first portion of duodenum, stomach, and GE junction were then re-evaluated as well as the esophagus as we were pulling out. All the air was evacuated as we pulled out as well. The PEG tube was secured at the skin. Dressing was applied and the scope was totally removed. The patient tolerated this portion of the procedure quite well and was brought back to the ICU in a guarded, but stable condition. MD AVANI Mcleod/MAX / [id number]
[2020-12-04 04:02] LABS: Glucose, Whole Blood 145 mg/dL (60-115)
[2020-12-04] MEDS: Heparin Sodium,Porcine 5,000 UNIT/ML VIAL 5000 UNIT SUBCUT ×3 (05:38→21:15)
[2020-12-04] MEDS: methylPREDNISolone Sod Succ 125 MG/2 ML VIAL 80 MG IVPUSH ×2 (05:39→17:56)
[2020-12-04 06:03] LABS: VBG Base Excess 2.7 mmol/L; VBG HCO3 30 mmol/L (22-26); VBG pCO2 58 mmHg; VBG pH 7.31 (7.32-7.43); VBG pO2 65 mmHg
[2020-12-04 06:04] LABS: Venous Blood Gas Refer to POC result
[2020-12-04 06:53] LABS: Glucose, Whole Blood 155 mg/dL (60-115)
[2020-12-04 07:19] LABS: Glucose, Whole Blood 152 mg/dL (60-115)
--- NOTE | 2020-12-04 08:16 | PC.NURSE ---
Shift eval 7p-7a: Patient O2sat 86-88 on 60% FIO2. Titrate O2 to 100% in order to keep O2 above 90. Dr Arellano & Sam PA made aware - order to increase peep to 10 from 5. Order initiated. 8 portex trach - stoma bleeding scant amt. Moderate amt of thin bloody secretions in-line suctioned. Suctioning did not affect O2sat. Lungs - insp & exp rhonchi. VBG's done and results viewed by PA. Patient sedated w/ fentanyl & propofol (see drug titration for rates). Patient has cough & gag. Moderate amt bloody oral secretions. Trach care done at 6am. Left upper quad PEG patent - able to give meds. Plan to restart tube feed 12/04 @ 1800. Patient not responding to verbal stimuli, or following directions. opens eyes to care. Daughter Luz updated about patient plan of care & current vitals at approx 1900 & 0145.
[2020-12-04] MEDS: Cholecalciferol (Vitamin D3) 25 MCG TABLET 50 MCG G-TUBE (09:17)
[2020-12-04] MEDS: Thiamine HCL 100 MG TABLET 200 MG G-TUBE ×2 (09:17→21:15)
[2020-12-04] MEDS: Metoprolol Tartrate 25 MG TABLET PO ×2 (09:17→21:14)
[2020-12-04] MEDS: Famotidine/PF 20 MG/2 ML VIAL IVPUSH (09:17)
[2020-12-04] MEDS: Chlorhexidine Gluc Oral Rinse 15 ML MOUTHWASH BUCCAL ×3 (09:17→21:14)
[2020-12-04] MEDS: Nystatin Powder 15 GM BOTTLE 1 APPL TOPICAL ×2 (09:18→21:15)
[2020-12-04 11:23] LABS: Glucose, Whole Blood 133 mg/dL (60-115)
--- NOTE | 2020-12-04 12:29 | MHC.CLN ---
F/U PT CURRENTLY NPO WHEN TF NEEDED, RECOMMEND GLUCERNA AT MAX GOAL 50CC/HR WITH 30CC PROSOURCE BID AND 120CC FREE WATER FLUSHES Q 4HRS PROVIDES 1320KCALS (1674KCALS WITH SEDATION; 28KCALS/KG BASED ON IBW), 80G PROTEIN (1.4G/KG), 1744CC TOTAL WATER FROM FORMULA AND FLUSH (29.5CC/KG) MONITOR TOLERANCE, RESIDUALS AND LYTES
--- NOTE | 2020-12-04 14:24 | HO.POSTANES ---
Post Anesthesia Evaluation Post Anesthesia Evaluation Vital Signs: Vital Signs Temp Pulse Resp BP Pulse Ox 12/04/20 14:00 97.9 F 79 18 127/58 L 95 12/04/20 13:00 97.7 F 77 18 124/51 L 96 12/04/20 12:00 97.5 F 76 18 120/54 L 95 12/04/20 11:00 97.2 F 84 21 H 139/56 L 91 L 12/04/20 10:00 97.9 F 80 16 112/44 L 100 12/04/20 09:17 79 116/47 L 12/04/20 09:00 97.9 F 78 18 116/47 L 100 12/04/20 08:00 97.9 F 79 18 115/49 L 98 12/04/20 07:00 97.5 F 95 19 108/50 L 98 12/04/20 06:00 97.5 F 103 H 23 H 133/52 L 95 12/04/20 05:00 97.5 F 19 L 19 95/36 L 95 12/04/20 04:00 97.5 F 100 21 H 122/52 L 12/04/20 03:00 97.5 F 101 H 20 125/51 L 96 Anesthesia: General Endotracheal-GETA Mental Status: Awake Pain Control: Satisfactory Nausea/Vomiting: None Hydration: Adequate Anesthesia-Related Issues: No Anes. Related Issues
--- NOTE | 2020-12-04 14:26 | MHC.CM.PN ---
Pt is POD 1 from peg and trach placement: tolerating both well. Referral made to LTAC (both [facility] facilities) as well as trach care credentialed SNF's. No acceptance as of this note: There is an extendsibe LTAC wait list and her trach will need to be 30 days old prior to SNF acceptance. Call placed to Mikki Melgoza at [facility] to ensure an out of network contract for pt's post [facility] care given her medical complexity. Will await callback to discuss further. Dtkatherine Escobar updated on above and in agreement of d/c plan CM to follow for finalization of plan
[2020-12-04 15:34] LABS: Glucose, Whole Blood 166 mg/dL (60-115)
[2020-12-04] MEDS: Lactulose 20 GM/30 ML SOLUTION PO ×2 (16:15→21:27)
--- NOTE | 2020-12-04 18:14 | PC.NURSE ---
TUBE FEEDS RESTARTED WITH GLUCERNA AT 20 ML/HR WITH MAX GOAL 50.
[2020-12-04 19:18] LABS: Glucose, Whole Blood 134 mg/dL (60-115)
--- NOTE | 2020-12-04 20:37 | P.PNCC_ITS ---
Subjective Subjective Date of Service: 12/04/20 Interval History: Mrs. Carr was admitted to the ICU on November 18 with acute respiratory failure secondary to COVID pneumonia. TODAY patient has had no events, she underwent a 12/03/2020 tracheostomy and PEG placement in the OR by Dr. Mendoza, according to him there was copious amounts of thick secretions. No surgical complications reported. PMHx includes type 2 diabetes w CKD (last baseline BUN/creat 37/1.3 on 08/03/20), HTN, morbid obesit y, ischemic heart disease, chronic diastolic CHF, obstructive sleep apnea, obesity/hypoventilation syndrome noncompliant with CPAP Hyperlipidemia, Chronic pancreatitis, COPD, Degenerative arthritis of knees, Diverticulosis, Dysuria, Memory loss, Pulmonary embolism, Right heart failure (secondary to left heart failure), SVT, Diabetic polyneuropathy, and Vertigo. Admitted on Nov 09 with h/o one week of SOB and cough. On arrival, Sat was 50% on room air. COVID PCR was positive. She was put on HFNC and admitted to Medicine. She was given Decadron and Remdesivir and 10 days of ceftiriaxone. She required brief NIV w CPAP/BiPAP betw Nov 13-. On November 18, she failed NIV bec of hypoxemia and was brought down to the ICU and intubated. On November 22, her WBC spiked and a sputum showed 4+ polys, 4+ GNRs, and culture grew stenotrophomonas. She was given three days of Zosyn. She had an episode of AFib with RVR requiring cardioversion, now controlled on propafenone and metoprolol. Had also been on Eliquis, which was stopped 2? bloody tracheal secretions. She has been afebrile almost the entire time she has been the here, except for a few isolated temperature spikes, the last one was a single temperature to 102 degrees on November 29. 2 days ago, her WBC bumped to 14 and she was started on Levaquin. Peak DDimer was 4295 on November 18, Ferritin 1887 on Nov 09, CRP 20 on November 23, PCT 0.3 on November 18. EXAM: 133/54; 92; 18; 96.7 F; 89% on Vent settings via Tracheostomy AC of 18/ 500 / 10 Fio2 90 % General: sedated and vented Skin: Intact, no lesions or rash HEENT: Normocephalic, atraumatic, extraocular movements intact, neck is supple, no lymphadenopathy. Buccal mucosa moist. Throat midline. Cardiac: Clear S1-S2, no murmurs rubs or gallops. Pulmonary: Diminished and coarsed bilaterally. Abdomen: Protuberant, positive bowel sounds in all 4 quadrants. Soft Musculoskeletal: No cough wheeling or crepitus on passive ROM of the major joints. No Edema of the legs and no Asymetry. Neurologic: As above, no new focal deficits. Vascular: 2+ pulses upper and lower extremities distally. LABORATORY DATA: No new labs VBG ph 7.31/ 58/ 65/30 sat 88 base Ex 2.7 IMAGING: CXR done 11/30 shows diffuse moderate-severe bilat ARDS. MICROBIOLOGY: Sputum GS from today showsf 2+ polys, no orgs. Culture is growing 3+ GNR. Last sputum from 11/22 showed 4+ polys, 4+ GNR, and grew stenotrophomonas. Assesment and PLAN : 1. Underlying morbid obesity, DM, and CAD. 2. Underlying right heart failure 2? morbid obesity and MOISÉS. 3. Pneumonia and ARDS due to COVID-19. Symptom onset approximately Nov 02==== POD #2 Tracheostomy and PEG 4. Acute hypoxic respiratory failure secondary to above. She?s already had Remdesivir and ten days of Decadron. Started 12/02 on Solumedrol 80mg bid, Vit C, Vit D, thiamine, and melatonin. Peep increased to 8 and maybe back to 10 as her Sat is about 88 % on current vent settings. 5. AFib w/ RVR. Adequately controlled. If she has another run, I would prob restart her Eliquis, not the case yet. 6. H/o CHF does not appear to be fluid overloaded now 7. Renal. ?Prerenal? ratio of her indices may be 2? RHF; dc Lasix and monitor renal function, check labs in am 8. Diabetes: Continue insulin drip. Dose requirement is increasing bec of the solu-Medrol. 9. ID: Started doxycycline yest bec of elevated WBC. Remains afebrile. 10. Nutrtition. On full dose tube feeds======= POST PEG TUBE PLACEMENT 11. DVT prophylaxis: Heparin 5000 u TID. Critical care time used for critical evaluation of this patient, diagnosis, treatment and coordination of care, review her records and documentation TOTAL CRITICAL CARE TIME 60 MIN . Patient's care was discussed in detail with Dr. Arellano. He is aware of all the above as well as the plan of care for this patient. Physical Exam Vital Signs: Vital Signs: Last Vital Signs Temp 98.1 F 12/04/20 19:50 Pulse 87 12/04/20 19:50 Resp 20 12/04/20 19:50 BP 125/51 L 12/04/20 19:50 Pulse Ox 94 12/04/20 19:50 Body Mass Index 53.2 Objective Data Labs CBC & Chem 7: 12/03/20 05:30 12/03/20 05:30 Labs: Laboratory Results - last 24 hr 12/03/20 12/03/20 12/04/20 21:05 23:04 03:02 VBG pH 7.25 L VBG pCO2 67 VBG pO2 67 VBG HCO3 29 H VBG O2 Saturation 88.0 VBG Base Excess 0.8 POC Glucose 132 H 145 H 12/04/20 12/04/20 12/04/20 05:56 06:50 07:12 VBG pH 7.31 L VBG pCO2 58 VBG pO2 65 VBG HCO3 30 H VBG O2 Saturation 88.0 VBG Base Excess 2.7 POC Glucose 155 H 152 H 12/04/20 12/04/20 12/04/20 11:19 15:30 19:13 VBG pH VBG pCO2 VBG pO2 VBG HCO3 VBG O2 Saturation VBG Base Excess POC Glucose 133 H 166 H 134 H Microbiology Microbiology Results: Microbiology 12/01/20 14:39 Sputum - Suctioned Gram Stain - Final 12/01/20 14:39 Sputum - Suctioned Sputum Culture - Final Stenotrophomonas maltophilia 11/22/20 08:15 Sputum - Suctioned Gram Stain - Final 11/22/20 08:15 Sputum - Suctioned Sputum Culture - Final Stenotrophomonas maltophilia 11/09/20 19:57 Blood - Venous Blood Culture - Final Coag negative Staphylococcus 11/09/20 20:54 Blood - Venous Blood Culture - Final No growth after 5 days. Progress Note: A&P Time Spent With Patient Time: Total time spent is greater than 50% in coordination of care (as documented) at patient's floor/unit and/or counseling patient: Total time spent with greater than 50% in coordination of care (as documented) at patient's floor/unit and/or counseling patient:: 60
[2020-12-04] MEDS: Melatonin 3 MG TABLET 9 MG G-TUBE (21:14)
[2020-12-04 23:19] LABS: Glucose, Whole Blood 156 mg/dL (60-115)
[2020-12-05] VITALS (35 sets, daily range): BP systolic 98–144; BP diastolic 32–68; PULSE 78–126; RESP 13–28; TEMP 36.4–37.1; O2SAT 80–96
[2020-12-05] MEDS: Insulin Regular/NS 100 UNIT/100 ML PLAST..BAG IVCONT ×2 (02:07→22:49)
[2020-12-05] MEDS: propofoL 1,000 MG/100 ML VIAL 13.47 MG IVCONT ×2 (02:08→08:37)
[2020-12-05 03:04] LABS: Glucose, Whole Blood 173 mg/dL (60-115)
[2020-12-05] MEDS: Ascorbic Acid 500 MG TABLET 1000 MG G-TUBE ×2 (04:55→12:21)
[2020-12-05] MEDS: methylPREDNISolone Sod Succ 125 MG/2 ML VIAL 80 MG IVPUSH (04:55)
[2020-12-05] MEDS: Heparin Sodium,Porcine 5,000 UNIT/ML VIAL 5000 UNIT SUBCUT ×3 (04:55→20:49)
[2020-12-05 05:29] LABS: MANUAL DIFF FLAG NO
[2020-12-05 05:35] LABS: Venous Blood Gas Refer to POC result
[2020-12-05 05:36] LABS: VBG Base Excess 3.9 mmol/L; VBG HCO3 31 mmol/L (22-26); VBG pCO2 58 mmHg; VBG pH 7.32 (7.32-7.43); VBG pO2 66 mmHg
[2020-12-05 05:58] LABS: Basophils Percent Auto 0.3 % (0-2); Eosinophils Percent Auto 0.1 % (0-4); Hematocrit 34.5 % (37-47); Hemoglobin 10.3 g/dl (12.0-16.0); Imm Gran Abs Auto 0.41 X10*3/uL (0.00-0.03); Lymphocytes Absolute Auto 1.2 X10*3/uL (1.2-4.9); Lymphocytes Percent Auto 11.3 % (20-40); Mean Corpuscular HGB Conc 29.9 g/dl (31.0-35.0); Mean Corpuscular Hemoglobin 25.6 pg (27.0-33.0); Mean Corpuscular Volume 85.6 fL (80-98); Mean Platelet Volume 10.8 fL (9.4-12.3); Monocytes Absolute Auto 0.8 X10*3/uL (0.1-1.2); Monocytes Percent Auto 7.3 % (2-11); NRBC Pct Auto 0.2 /100WBC (0.0-0.2); Platelet Count 205 X10*3/uL (160-400); Red Blood Count 4.03 X10*6/uL (4.20-5.50); Red Cell Distribution Width 17.7 % (11.0-16.0); White Blood Count 10.3 X10*3/uL (4.8-10.8)
[2020-12-05 06:05] LABS: Alanine Aminotransferase 19 U/L (0-31); Albumin Level 3.1 g/dL (3.5-5.0); Alkaline Phosphatase 90 U/L (39-117); Anion Gap 14 (12-20); Aspartate Amino Transferase 27 U/L (5-31); Bilirubin Total 0.9 mg/dL (0.0-1.0); Blood Urea Nitrogen 61 mg/dL (9-16); C Reactive Protein 16.81 mg/dL (< or = 0.50); Calcium 8.9 mg/dL (8.4-10.2); Carbon Dioxide 27 mmol/L (22-29); Chloride 105 mmol/L (96-108); Creatinine Clr Calc Pharmacy 91.4; Estimated Glomerular Filt Rate > 60; Glucose Random 191 mg/dL (60-115); Sodium 142 mmol/L (135-145); Total Protein 6.8 g/dL (6.5-8.0)
[2020-12-05] MEDS: Metoprolol Tartrate 25 MG TABLET PO ×2 (08:36→21:32)
[2020-12-05] MEDS: Famotidine/PF 20 MG/2 ML VIAL IVPUSH (08:36)
[2020-12-05] MEDS: Thiamine HCL 100 MG TABLET 200 MG G-TUBE ×2 (08:36→21:33)
[2020-12-05] MEDS: Cholecalciferol (Vitamin D3) 25 MCG TABLET 50 MCG G-TUBE (08:36)
[2020-12-05] MEDS: 0.9 % Sodium Chloride Flush 3 ML SYRINGE IVFLUSH ×2 (08:36→16:02)
[2020-12-05] MEDS: Chlorhexidine Gluc Oral Rinse 15 ML MOUTHWASH BUCCAL ×3 (08:36→22:28)
[2020-12-05] MEDS: Nystatin Powder 15 GM BOTTLE 1 APPL TOPICAL ×2 (08:37→21:33)
[2020-12-05] MEDS: Lactulose 20 GM/30 ML SOLUTION PO ×3 (09:44→20:50)
[2020-12-05 11:52] LABS: Glucose, Whole Blood 156 mg/dL (60-115)
[2020-12-05 12:13] LABS: Glucose, Whole Blood 149 mg/dL (60-115)
[2020-12-05] MEDS: Doxycycline Hyclate 100 MG in 0.9 % Sodium Chloride 250 ML 166.67 MG IV (12:21)
[2020-12-05] MEDS: fentaNYL citrate/NS 1,000 MCG/100 ML PLAST..BAG 20 MCG IVCONT (12:22)
--- NOTE | 2020-12-05 12:46 | MHC.CM.PN ---
Pt remains in ICU following trach/peg placement. Referrals have been made to [facility] (LTAC) and SNF's that can accomodate her trach. Both will follow along. Currently pt is on the [facility] wait list. Family is aware of both plans for d/c and understands the barriers to both. 1. waitlist for LTAC and 2. need for 30 day trach maturity for SNF CM to follow
[2020-12-05] MEDS: propofoL 1,000 MG/100 ML VIAL 26.94 MG IVCONT (13:12)
[2020-12-05 14:35] LABS: Glucose, Whole Blood 165 mg/dL (60-115)
[2020-12-05 15:17] LABS: VBG HCO3 33 mmol/L (22-26); VBG pCO2 71 mmHg; VBG pH 7.26 (7.32-7.43); VBG pO2 59 mmHg
--- NOTE | 2020-12-05 15:25 | P.PNCC_ITS ---
Subjective Subjective Date of Service: 12/05/20 Interval History: Mrs. Carr was admitted to the ICU on November 18 with acute respiratory failure secondary to COVID pneumonia. The patient is a 65-year-old F with PMHx of type 2 diabetes w CKD (last baseline BUN/creat 37/1.3 on 08/03/20), HTN, morbid obesity, ischemic heart disease, chronic diastolic CHF, obstructive sleep apnea, obesity/hypoventilation syndrome noncompliant with CPAP, along with: Hyperlipidemia Chronic pancreatitis COPD Degenerative arthritis of knees Diverticulosis Dysuria Memory loss Pulmonary embolism Right heart failure (secondary to left heart failure) SVT Diabetic polyneuropathy Vertigo She presented to the ED on Nov 09 with h/o one week of SOB and cough. On arrival, Sat was 50% on room air. COVID PCR was positive. She was put on HFNC and admitted to Medicine. She was given Decadron and Remdesivir and 10 days of ceftiriaxone. She required brief NIV w CPAP/BiPAP betw Nov 13-. On November 18, she failed NIV bec of hypoxemia and was brought down to the ICU and intubated. On November 22, her WBC spiked and a sputum showed 4+ polys, 4+ GNRs, and culture grew stenotrophomonas. She was given three days of Zosyn. She had an episode of AFib with RVR requiring cardioversion, now controlled on propafenone and metoprolol. Had also been on Eliquis, which was stopped 2? bloody tracheal secretions. She has been afebrile almost the entire time she has been the here, except for a few isolated temperature spikes, the last one was a single temperature to 102 degrees on November 29. Yesterday, her WBC bumped to 14 and she was started on Levaquin. Peak DDimer was 4295 on November 18, Ferritin 1887 on Nov 09, CRP 20 on November 23, PCT 0.3 on November 18. On November 29, FiO2 got as low as 40%, but the patient failed a weaning trial. Subsequent FiO2 increased to the 50-60% range. I spoke to the family at length and indicated that is was not likely that she would be come off ventilator any time soon. I suggested tracheostomy and PEG, which they agreed to. Dr. Gottlieb did do procedures on December 03. Notably, the intraoperative course was marked by copious secretions that required extensive clearance via bronchoscopy. Subsequent FiO2 had to be increased to the 80% range. Today, her FiO2 is up to 100% and he ETCO2 and RR are up. See Vital Signs below. We had to switch her to PCV. On AC/PC F28, pressures 16/12, 100%, RR was 30, PIP 39cm, Vt 400cc, Ve 8L, Sat 85%. PvCO2 was up to 71. We tried paralyzing her with Nimbex, which was catastrophic bec we couldn?t ventilate her. Best Vt on PCV was about 280cc, with PIP in the 40?s. So we let the Nimbex wear off and got her breathing on PSV. With PSV 20cm, RR was 16, tidal vols 600cc. ETCO2 came down to 40, PvCO2 is down to 70. She remains afebrile. No JVD, Chest shows coarse BS with coarse crackles, normal exp phase, very obese, no gross edema, neuro nonfocal (albeit noninteractive). CURRENT MEDICATIONS also include: Insulin gtt. Solumedrol 80 mg bid Vit C Vit D Pepcid Melatonin Thiamine Heparin 5000u TID Metoprolol 25 bid Propafenone Doxycycline (started 12/01) LABORATORY DATA: As below. Notably, BUN/creat up to 61/0.9. IMAGING: CXR today (to r/o PTX) showed no PTX, but worsened ARDS. MICROBIOLOGY: Sputum GS from yest shows 3+ polys, 4+GNR. Culture is growing 4+ GNR. Last sputum from 12/01 grew stenotrophomonas. IMPRESSION: 1. Underlying morbid obesity, DM, and CAD. 2. Underlying right heart failure 2? morbid obesity and MOISÉS. 3. Pneumonia and ARDS due to COVID-19. Symptom onset approximately Nov 02. 4. Acute hypoxic respiratory failure secondary to above. She had Remdesivir and ten days of Decadron. On 12/02 I started her on Solumedrol 80mg bid, Vit C, Vit D, thiamine, and melatonin. Her disease is worsening and now she?s hypercabic. Survival would appear unlikely. I started her today on pulse steroids, 1G daily x 3 days. I spoke with the three daughters by phone today for about an hour, and then again with Luz when she came in to see her mother. I showed Luz the CXR, and how it had gotten worse compared to the previous film. I?ve indicated that her survival was in doubt. 5. AFib w/ RVR. Adequately controlled. She?s been in SR all week. If she has another run, I would prob restart her Eliquis. 6. H/o CHF. BUN and creat and ratio dai dramatically. We?ll have to give her back fluids. 7. Renal. ?Prerenal? ratio of her indices may be 2? RHF, in which case, diuresis would cause a rapid rise in the indices -- which is what happened. Stopped the Lasix yest. 8. Diabetes: Continue insulin drip. Dose requirement is increasing bec of the solu-Medrol. 9. ID: Started doxycycline 12/03 bec of elevated WBC. Changed to Zosyn today bec of the GNR in sputum. Likely going to be stenotrophomonas. 10. Nutrtition. On full dose tube feeds. 11. DVT prophylaxis: Heparin 5000 u TID. Critical care time (includ mult visits to bedside): 2+hrs. Physical Exam Vital Signs: Vital Signs: Last Vital Signs Temp 98.4 F 12/05/20 15:00 Pulse 91 12/05/20 15:00 Resp 13 12/05/20 15:00 BP 103/45 L 12/05/20 15:00 Pulse Ox 85 L 12/05/20 15:00 Body Mass Index 53.2 Objective Data Labs CBC & Chem 7: 12/05/20 05:22 12/05/20 05:22 Labs: Laboratory Results - last 24 hr 12/04/20 12/04/20 12/04/20 15:30 19:13 23:15 WBC RBC Hgb Hct MCV MCH MCHC RDW Plt Count MPV Immature Gran % (Auto) Neut % (Auto) Lymph % (Auto) [place] % (Auto) Eos % (Auto) Baso % (Auto) Lymph # (Auto) [place] # (Auto) Eos # (Auto) Baso # (Auto) Abs Immat Gran (auto) Absolute Neuts (auto) Absolute Nucleated RBC Nucleated RBC % (auto) VBG pH VBG pCO2 VBG pO2 VBG HCO3 VBG O2 Saturation VBG Base Excess Sodium Potassium Chloride Carbon Dioxide Anion Gap BUN Creatinine Estim Creat Clear Calc Estimated GFR POC Glucose 166 H 134 H 156 H Random Glucose Calcium Total Bilirubin AST ALT Alkaline Phosphatase C-Reactive Protein Total Protein Albumin 12/05/20 12/05/20 12/05/20 03:00 05:22 05:22 WBC 10.3 RBC 4.03 L Hgb 10.3 L Hct 34.5 L MCV 85.6 MCH 25.6 L MCHC 29.9 L RDW 17.7 H Plt Count 205 MPV 10.8 Immature Gran % (Auto) 4.0 H Neut % (Auto) 77.0 H Lymph % (Auto) 11.3 L [place] % (Auto) 7.3 Eos % (Auto) 0.1 Baso % (Auto) 0.3 Lymph # (Auto) 1.2 [place] # (Auto) 0.8 Eos # (Auto) 0.0 Baso # (Auto) 0.0 Abs Immat Gran (auto) 0.41 H Absolute Neuts (auto) 8.0 Absolute Nucleated RBC 0.020 H Nucleated RBC % (auto) 0.2 VBG pH VBG pCO2 VBG pO2 VBG HCO3 VBG O2 Saturation VBG Base Excess Sodium 142 Potassium 4.0 Chloride 105 Carbon Dioxide 27 Anion Gap 14 BUN 61 H Creatinine 0.90 Estim Creat Clear Calc 91.4 Estimated GFR > 60 POC Glucose 173 H Random Glucose 191 H Calcium 8.9 Total Bilirubin 0.9 AST 27 ALT 19 Alkaline Phosphatase 90 C-Reactive Protein 16.81 H Total Protein 6.8 Albumin 3.1 L 12/05/20 12/05/20 12/05/20 05:29 07:08 12:08 WBC RBC Hgb Hct MCV MCH MCHC RDW Plt Count MPV Immature Gran % (Auto) Neut % (Auto) Lymph % (Auto) [place] % (Auto) Eos % (Auto) Baso % (Auto) Lymph # (Auto) [place] # (Auto) Eos # (Auto) Baso # (Auto) Abs Immat Gran (auto) Absolute Neuts (auto) Absolute Nucleated RBC Nucleated RBC % (auto) VBG pH 7.32 VBG pCO2 58 VBG pO2 66 VBG HCO3 31 H VBG O2 Saturation 87.0 VBG Base Excess 3.9 Sodium Potassium Chloride Carbon Dioxide Anion Gap BUN Creatinine Estim Creat Clear Calc Estimated GFR POC Glucose 156 H 149 H Random Glucose Calcium Total Bilirubin AST ALT Alkaline Phosphatase C-Reactive Protein Total Protein Albumin 12/05/20 12/05/20 14:26 15:11 WBC RBC Hgb Hct MCV MCH MCHC RDW Plt Count MPV Immature Gran % (Auto) Neut % (Auto) Lymph % (Auto) [place] % (Auto) Eos % (Auto) Baso % (Auto) Lymph # (Auto) [place] # (Auto) Eos # (Auto) Baso # (Auto) Abs Immat Gran (auto) Absolute Neuts (auto) Absolute Nucleated RBC Nucleated RBC % (auto) VBG pH 7.26 L VBG pCO2 71 VBG pO2 59 VBG HCO3 33 H VBG O2 Saturation 81.0 VBG Base Excess 4.0 Sodium Potassium Chloride Carbon Dioxide Anion Gap BUN Creatinine Estim Creat Clear Calc Estimated GFR POC Glucose 165 H Random Glucose Calcium Total Bilirubin AST ALT Alkaline Phosphatase C-Reactive Protein Total Protein Albumin Microbiology Microbiology Results: Microbiology 12/04/20 16:31 Sputum - Suctioned Gram Stain - Final 12/04/20 16:31 Sputum - Suctioned Sputum Culture - Preliminary Gram negative emory 12/01/20 14:39 Sputum - Suctioned Gram Stain - Final 12/01/20 14:39 Sputum - Suctioned Sputum Culture - Final Stenotrophomonas maltophilia 11/22/20 08:15 Sputum - Suctioned Gram Stain - Final 11/22/20 08:15 Sputum - Suctioned Sputum Culture - Final Stenotrophomonas maltophilia 11/09/20 19:57 Blood - Venous Blood Culture - Final Coag negative Staphylococcus 11/09/20 20:54 Blood - Venous Blood Culture - Final No growth after 5 days. Progress Note: A&P Time Spent With Patient Time: Total time spent is greater than 50% in coordination of care (as docum ented) at patient's floor/unit and/or counseling patient: Total time spent with greater than 50% in coordination of care (as documented) at patient's floor/unit and/or counseling patient:: 0 Critical Care Time Critical Care Time (minutes): 60
[2020-12-05 15:28] LABS: Venous Blood Gas Refer to POC result
--- NOTE | 2020-12-05 15:53 | PC.NURSE ---
Pt desating this am, on 100% fio2 and o2 sat trending 90-91%, md aware and stat chest xray ordered,tidal volumes decreased by RT per MD to 380 from 500, pt continues to desat and trending 85-87%, md at bedside with RN and RT, sedation increased per MD and vent settings changed/ pt placed on PCV with rate of 28 and insp 16 and peep of 12, continues on 100% fio2 and o2 sat only trending 87-89% this afternoon, pt continues to not be synchronus with vent, maxed out on sedation, tidal volumes low, md at bedside, stat vbg ordered and drawn, stat nimbex 20mg iv given per MD, pt volumes down to 3-4, bagged via ambu by md, rt at bedside, stat treatment given by RT, o2 sats currently 92% after nimbex. daughter carl at bedside and updated by
[2020-12-05] MEDS: propofoL 1,000 MG/100 ML VIAL 44.91 MG IVCONT (16:00)
[2020-12-05] MEDS: Cisatracurium Besylate 20 MG/10 ML VIAL IVPUSH (16:35)
[2020-12-05] MEDS: fentaNYL citrate/NS 1,000 MCG/100 ML PLAST..BAG 15 MCG IVCONT (17:43)
[2020-12-05] MEDS: methylPREDNISolone Sod Succ 125 MG/2 ML VIAL 500 MG IV (18:30)
[2020-12-05 18:35] LABS: VBG Base Excess -2.1 mmol/L; VBG HCO3 28 mmol/L (22-26); VBG pCO2 75 mmHg; VBG pH 7.17 (7.32-7.43); VBG pO2 68 mmHg
[2020-12-05 18:37] LABS: Venous Blood Gas Refer to POC result
[2020-12-05] MEDS: propofoL 1,000 MG/100 ML VIAL 22.45 MG IVCONT (19:02)
[2020-12-05 19:13] LABS: Glucose, Whole Blood 140 mg/dL (60-115)
[2020-12-05 19:49] LABS: Venous Blood Gas Refer to POC result
[2020-12-05 19:49] LABS: VBG Base Excess 0.2 mmol/L; VBG HCO3 29 mmol/L (22-26); VBG pCO2 70 mmHg; VBG pH 7.22 (7.32-7.43); VBG pO2 47 mmHg
[2020-12-05] MEDS: Sodium Chloride 0.45 % 1,000 ML 80 ML IVCONT (20:48)
[2020-12-05] MEDS: Melatonin 3 MG TABLET 9 MG G-TUBE (20:49)
[2020-12-05] MEDS: Piperacillin Sodium/Tazobactam 4.5 GM in 0.9 % Sodium Chloride 100 ML IV (20:49)
[2020-12-05] MEDS: Albuterol Sulfate (0.083%) 2.5 MG/3 ML VIAL.NEB 10 MG INHALE (21:27)
[2020-12-05 22:42] LABS: Glucose, Whole Blood 124 mg/dL (60-115)
[2020-12-05] MEDS: propofoL 1,000 MG/100 ML VIAL 31.43 MG IVCONT (22:49)
[2020-12-05] MEDS: fentaNYL citrate/NS 1,000 MCG/100 ML PLAST..BAG 30 MCG IVCONT (23:52)
[2020-12-06] VITALS (37 sets, daily range): BP systolic 89–168; BP diastolic 37–75; PULSE 86–112; RESP 13–32; TEMP 36.2–37.3; O2SAT 79–93
[2020-12-06] MEDS: Ascorbic Acid 500 MG TABLET 1000 MG G-TUBE ×4 (00:54→23:01)
[2020-12-06] MEDS: 0.9 % Sodium Chloride Flush 3 ML SYRINGE IVFLUSH ×3 (02:08→14:56)
[2020-12-06] MEDS: propofoL 1,000 MG/100 ML VIAL 31.43 MG IVCONT ×5 (02:09→10:30)
[2020-12-06] MEDS: Piperacillin Sodium/Tazobactam 4.5 GM in 0.9 % Sodium Chloride 100 ML IV ×4 (02:28→20:33)
[2020-12-06 02:53] LABS: Glucose, Whole Blood 155 mg/dL (60-115)
[2020-12-06] MEDS: fentaNYL citrate/NS 1,000 MCG/100 ML PLAST..BAG 30 MCG IVCONT ×2 (03:17→06:30)
[2020-12-06] MEDS: Sodium Chloride 0.45 % 1,000 ML 80 ML IVCONT (03:20)
[2020-12-06] MEDS: Albuterol Sulfate (0.083%) 2.5 MG/3 ML VIAL.NEB INHALE ×2 (03:35→19:45)
--- NOTE | 2020-12-06 04:16 | PC.NURSE ---
pt has demonstrated resp deterioration over night. unfortunately on pressure support ventilation pts sao2 have declined into the 78-80%. with great difficulty various modes of ventilation attempted. in addition to ventilatory changes sedation increased with fentanyl being increased to 300 mcg/hr. propofol at 35mcg/kg/hr to achieve ventilatory synchrony currently ventilatory settings pc 30 rate 30 fio2 100% peep 10. breath sounds coarse with scattered rhonchi throughout. suctioned via trach for moderate amounts of pale yellow sputum. ecg displays sr-st with unifocal pvcs. with the increase in sedation dosages hypotension ensued. levophed has been added at 0.1 mcg/kg/min to achieve b/p guidelines. tube feedings have been off d/t high residuals and paralytic administration earlier in the day. u/o is extremely marginal 2-5 ml/hr. the following findings have been reviewed by midlevel provider shantell thomas. salazar henry and brother kareem summoned to bedside by shantell wood d/t deterioration in condition. daughter carl expresses that the family wants everything done and to stay the coarse. family members departed after several hours and will be notified of any significant changes in condition. salazar henry to be spoke person. due to extremely tenuous clinical status, repositioning side to side q 2hr deferred.
[2020-12-06] MEDS: Heparin Sodium,Porcine 5,000 UNIT/ML VIAL 5000 UNIT SUBCUT ×2 (04:23→11:24)
[2020-12-06 06:12] LABS: VBG Base Excess -3.4 mmol/L; VBG HCO3 28 mmol/L (22-26); VBG pCO2 88 mmHg; VBG pO2 61 mmHg
[2020-12-06 06:19] LABS: Hemoglobin 10.7 g/dl (12.0-16.0); Mean Corpuscular HGB Conc 28.9 g/dl (31.0-35.0); Mean Corpuscular Hemoglobin 25.8 pg (27.0-33.0); Mean Corpuscular Volume 89.4 fL (80-98); Mean Platelet Volume 10.1 fL (9.4-12.3); NRBC Pct Auto 0.8 /100WBC (0.0-0.2); Platelet Count 291 X10*3/uL (160-400); Red Blood Count 4.14 X10*6/uL (4.20-5.50); Red Cell Distribution Width 18.4 % (11.0-16.0); White Blood Count 16.9 X10*3/uL (4.8-10.8)
[2020-12-06 06:21] LABS: Venous Blood Gas Refer to POC result
[2020-12-06] MEDS: methylPREDNISolone Sod Succ 125 MG/2 ML VIAL 500 MG IV ×2 (06:28→16:31)
[2020-12-06 06:45] LABS: Band Neutrophils Percent 10 % (3-5); Metamyelocytes Absolute 0.2 X10*3/uL; Metamyelocytes Percent 1 %; Monocytes Absolute Manual 0.8 X10*3/uL (0.0-1.2); Monocytes Percent Manual 5 % (2-11); Myelocytes Absolute 0.2 X10*/uL; Myelocytes Percent 1 %; Neutrophils Absolute Manual 15.7 X10*3/uL (2.2-7.9); Neutrophils Percent Manual 83 % (45-73); RBC Morphology NOTED
[2020-12-06 06:46] LABS: Acanthocytes 1+ (0-2) /OIF; Basophilic Stippling 1+ (0-2) /OIF; Large Platelet PRESENT; Platelet Estimate NORMAL (NORMAL); Platelet Morphology Comment NOTED; Polychromasia 1+ (0-2) /OIF
[2020-12-06 06:54] LABS: Alanine Aminotransferase 34 U/L (0-31); Albumin Level 3.3 g/dL (3.5-5.0); Alkaline Phosphatase 118 U/L (39-117); Anion Gap 19 (12-20); Aspartate Amino Transferase 51 U/L (5-31); Bilirubin Total 1.2 mg/dL (0.0-1.0); Blood Urea Nitrogen 74 mg/dL (9-16); C Reactive Protein 17.47 mg/dL (< or = 0.50); Calcium 9.1 mg/dL (8.4-10.2); Carbon Dioxide 25 mmol/L (22-29); Chloride 103 mmol/L (96-108); Creatinine Clr Calc Pharmacy 47.5; Estimated Glomerular Filt Rate 29; Glucose Random 213 mg/dL (60-115); Potassium 5.8 mmol/L (3.3-5.1); Sodium 141 mmol/L (135-145); Total Protein 7.3 g/dL (6.5-8.0)
--- NOTE | 2020-12-06 06:57 | W.MHC.ACPN ---
Advanced Care Planning Note Advanced Care Planning Note Discussed with: family member(s) Time spent (in minutes): 45 Narrative: The patient has been deteriorating throughout the night, particularly her O2 saturation despite of all our clinical efforts to try to maintain good ventilation, I have increased and decrease the opioids, may changes in the vent settings, suction her and provider and bronchodilators with hopes of improving her ventilation however the patient continued to saturate her on 80% on the current vent settings. Given my concern that the patient would further deteriorate and that she would suffer from cardiopulmonary arrest I have call the patient's daughter Luz and explained to her the situation. I also suggested that she would come in so we have a better discussion about goals of care. Around 11:00 p.m., the above-mentioned daughter came into the hospital and we held a meeting with the rest of her siblings over the phone to home I split the situation and how concern I a.m. about the patient's suffering and poor prognosis. Approximately 30 minutes was spent answering questions, detail in the different treatments and trials that have been made in ordered to try to help these patient. They all insisted that the patient should be full code and the which should continue to fight, the hope a miracle will happen. At this point will continue with all measures. They are aware of the poor prognosis and that despite of all our efforts, we do not anticipate that she would have a good outcome. It appears that at this point we are simply prolonging the eminent, however will continue to provide the best medical care possible. Critical care time used for critical evaluation of this patient, diagnosis, treatment and coordination of care, review her records and documentation TOTAL CRITICAL CARE TIME 45 MIN . Patient's care was discussed in detail with Dr. Arellano. He is aware of all the above as well as the plan of care for this patient. Problems Discussed (1) Pneumonia due to COVID-19 virus: (2) Fever, unknown origin:
[2020-12-06 07:02] LABS: Glucose, Whole Blood 200 mg/dL (60-115)
[2020-12-06 07:26] LABS: Procalcitonin 0.62 ng/mL
[2020-12-06] MEDS: Chlorhexidine Gluc Oral Rinse 15 ML MOUTHWASH BUCCAL ×3 (08:54→20:30)
[2020-12-06] MEDS: Lactulose 20 GM/30 ML SOLUTION PO ×4 (08:55→20:30)
[2020-12-06] MEDS: Metoprolol Tartrate 25 MG TABLET PO ×2 (08:55→20:32)
[2020-12-06] MEDS: Cholecalciferol (Vitamin D3) 25 MCG TABLET 50 MCG G-TUBE (08:56)
[2020-12-06] MEDS: Nystatin Powder 15 GM BOTTLE 1 APPL TOPICAL ×2 (08:57→22:16)
[2020-12-06] MEDS: Thiamine HCL 100 MG TABLET 200 MG G-TUBE ×2 (08:57→20:32)
[2020-12-06] MEDS: Famotidine/PF 20 MG/2 ML VIAL IVPUSH (08:59)
[2020-12-06] MEDS: Sodium Zirconium Cyclosilicate 10 GM POWD.PACK PO ×3 (09:11→20:30)
[2020-12-06 11:42] LABS: Glucose, Whole Blood 180 mg/dL (60-115)
--- NOTE | 2020-12-06 12:29 | P.PNCC_ITS ---
Subjective Subjective Date of Service: 12/07/20 Interval History: Mrs. Carr was admitted to the ICU on November 18 with acute respiratory failure secondary to COVID pneumonia. The patient is a 65-year-old F with PMHx of type 2 diabetes w CKD (last baseline BUN/creat 37/1.3 on 08/03/20), HTN, morbid obesity, ischemic heart disease, chronic diastolic CHF, obstructive sleep apnea, obesity/hypoventilation syndrome noncompliant with CPAP, along with: Hyperlipidemia Chronic pancreatitis COPD Degenerative arthritis of knees Diverticulosis Dysuria Memory loss Pulmonary embolism Right heart failure (secondary to left heart failure) SVT Diabetic polyneuropathy Vertigo She presented to the ED on Nov 09 with h/o one week of SOB and cough. On arrival, Sat was 50% on room air. COVID PCR was positive. She was put on HFNC and admitted to Medicine. She was given Decadron and Remdesivir and 10 days of ceftiriaxone. She required brief NIV w CPAP/BiPAP betw Nov 13-. On November 18, she failed NIV bec of hypoxemia and was brought down to the ICU and intubated. On November 22, her WBC spiked and a sputum showed 4+ polys, 4+ GNRs, and culture grew stenotrophomonas. She was given three days of Zosyn. She had an episode of AFib with RVR requiring cardioversion, now controlled on propafenone and metoprolol. Had also been on Eliquis, which was stopped 2? bloody tracheal secretions. She has been afebrile almost the entire time she has been the here, except for a few isolated temperature spikes, the last one was a single temperature to 102 degrees on November 29. On November 30, her WBC bumped to 14 and she was started on Levaquin. That was then changed to Doxycycline. On November 29, FiO2 got as low as 40%, but the patient failed a weaning trial. Subsequent FiO2 increased to the 50-60% range. Dr. Gottlieb did tracheostomy and PEG on December 03. Notably, the intraoperative course was marked by copious secretions that required extensive suctioning via bronchoscopy. FiO2 then next day had to be increased to the 80% range, and the day after (yesterday) to 100%, along with a rise in her PvCO2 to the 70?s. Yesterday, her ventilation became dysynchronus and we paralyzed her, which was catastrophic bec we couldn?t ventilate her. Best Vt on PCV was about 280cc, with PIP in the 40?s. So we let the Nimbex wear off and got her breathing on PSV. With PSV 20cm, on the fentanyl infusion, RR was 16, tidal vols 600cc. ETCO2 came down to 40, PvCO2 was down to 70. Yesterday CXR showed no PTX, but her ARDS was worse. I started her on pulse steroids (1G daily x 3 days). Sputum grew out GNR, so we changed her to Zosyn. BUN/creat were up to 61/0.9 so she was given a fluid bolus. Overnite last night she was put on PCV, which was assoc with high PIPS, and her PvCO2 climbed to 88, so this morning I turned the fentanyl and propofol off and got her back on PSV. Currently, with the propofol and fentanyl off, She?s not awake. PER, about 2-3 mm. She?s on Levophed @ 0.08ug. See Vital Signs below. On PSV 15/100%/+10, RR is now 16, Vt 580cc, Ve 8.7L, ETCO2 54, Sat 87%. She remains afebrile. No JVD, Chest shows coarse BS, normal exp phase. Very obese, abdomen benign, maybe slight edema, neuro nonfocal (albeit noninteractive). CURRENT MEDICATIONS also include: Insulin gtt. Solumedrol 500 mg bid Vit C Vit D Pepcid Melatonin Thiamine Heparin 5000u TID Metoprolol 25 bid Propafenone Zosyn (day #2) LABORATORY DATA: As below. Notably, WBC up to 16, CVBG this morning showed 7.10/88/-3, BUN/creat up to 74/1.7, K up to 5.8, bicarb 25, PCT is 0.6. MICROBIOLOGY: Sputum GS from 12/04 shows 3+ polys, 4+GNR. Culture is growing 4+ GNR, yet to be ID?d. Last sputum from 12/01 grew stenotrophomonas. IMPRESSION: 1. Underlying morbid obesity, DM, and CAD. 2. Underlying right heart failure 2? morbid obesity and MOISÉS. 3. Pneumonia and ARDS due to COVID-19. Symptom onset approximately Nov 02. 4. Acute hypoxic respiratory failure secondary to above. She had Remdesivir and ten days of Decadron. On 12/02 I started her on Solumedrol 80mg bid, Vit C, Vit D, thiamine, and melatonin. Her disease is worsening and now she?s hypercabic. Survival is unlikely. I started her yesterday on pulse steroids, 1G daily x 3 days. NARESH Tafoya had daughter Luz and son Finesse come in last night and discussed with them the poor prognosis. I called daughter Joyce today (unable to reach Luz) and asked for all the daughters and sons to come in today for a family conference. 5. AFib w/ RVR. Adequately controlled. She?s been in SR all week. 6. H/o CHF. Last echo on November 19 suggested normal LV and RV cavity size and fxn. 7. Renal: BUN and creat and ratio have risen dramatically, suggestive of RHF. I?ll check DDimer, trop, BNP, lactate and duplex scan LEs. 8. Metabolic. Low pH, high K+. Started bicarb drip, potassium binder, and calcium. Already on insulin. Recheck later today. 9. Diabetes: Continue insulin drip. Now on high dose steroids 10. ID: Started doxycycline 12/03 bec of elevated WBC. Changed to Zosyn yesterday bec of the GNR in sputum. Likely going to be stenotrophomonas. Draw BCs today. 11. Nutrtition. Stopping tube feeds bec of high K+. 12. DVT prophylaxis: Heparin 5000 u TID. ADDENDUM at 15:00: Repeat labs at noon showed D-dimer slightly increased to 671, repeat venous gas shows pH 7.13, and the pCO2 improved to 73, and base ex cess -5. Note that the bicarb drip was started not long ago; we will recheck the blood gas at 18:00. Repeat chemistries show the potassium up to 5.8, BUN and creatinine 77/1.7, phosphorus up to 8.3, bicarb 26, and the lactic acid was 0.5. Troponin was 22, and BNP was 880. Because of the elevated renal ratio and the BNP, I re-echo?d: ECHOCARDIOGRAM for hemodynamic monitoring: Image quality: Very good. Findings: 1. At least moderate LVH. 2. LV cavity size is small, with hyperdynamic LV fxn, and no RWMA noted. EF 65- 70%. 3. RV cavity is definitely enlarged, with RV:LV ratio 1.5 (maybe larger), and a straightened septum. 4. Atria not adequately assessed. 5. AoV not adeq assessed. 6. MV morphologically normal trace MR by color rafal. 7. TV morphologically normal. With 2-3+ TR by color rafal, and CWD signal measuring 4.1 m/sec (gradient of 67mm). 8. IVC measured 2.44 cm w no insp collapse. Estimated CVP 15cm. Estimated RVSP 82mm. I spoke with the family (Luz, Joyce, Yoli, and the , in the waiting room, along with Juanpablo listening in by telephone) for about an hour in the w aiting room. I indicated to them that her pulmonary status was getting worse and discussed the details of her oxygenation and ventilation. I noted (in so many words) that progressive hypercarbia was non recoverable. I also told them that Kita?s kidney function was getting worse. I discussed with them that Lawanda was unlikely to survive. They asked me how long we could keep her on the ventilator. I told them (in so many words) that we could do that for a long time, but that usually a point was reached where it becomes clear that a patient is not going to survive, and that after that, it was unwarranted torture and immoral to keep someone on a breathing machine. They expressed that that was better than , and I indicated to them (in so many words) that that was incorrect, and that there were things worse than . They insisted on hoping for a miracle, and that we keep her going on the ventilator and do whatever is necessary. I also discussed the echo results with them. The elevated renal ratio and the BNP suggest RHF. The echo clearly indicates RHF. The question is, is that 2? to a PE or 2? chronic obesity+MOISÉS+acute lung disease. Given the DDimer (minimally increased from 12/01) and the low troponin, this is not likely acute PE. And she is no candidate for a CTPA or V/Q scan. Given all that, I see no roll for tPA. But I see little contraindication to heparinization (that we could readily reverse if any bleeding). Therefore I discussed that with them and they agreed. Critical care time (includ mult visits to bedside, mult vent changes, mult d/w nurse and RT, mult d/w pharmacy, mult d/w NARESH Tafoya): 180+ min. Physical Exam Vital Signs: Vital Signs: Last Vital Signs Temp 99.0 F 12/06/20 12:00 Pulse 93 12/06/20 12:00 Resp 19 12/06/20 12:00 BP 118/55 L 12/06/20 12:00 Pulse Ox 86 L 12/06/20 12:00 Body Mass Index 53.2 Objective Data Labs CBC & Chem 7: 12/07/20 05:44 12/07/20 05:44 Labs: Laboratory Results - last 24 hr 12/05/20 12/05/20 12/05/20 14:26 15:11 18:25 WBC RBC Hgb Hct MCV MCH MCHC RDW Plt Count MPV Immature Gran % (Auto) Neut % (Auto) Lymph % (Auto) Barbour % (Auto) Eos % (Auto) Baso % (Auto) Lymph # (Auto) Barbour # (Auto) Eos # (Auto) Baso # (Auto) Abs Immat Gran (auto) Absolute Neuts (auto) Absolute Nucleated RBC Nucleated RBC % (auto) Neutrophils % (Manual) Band Neutrophils % Monocytes % (Manual) Metamyelocytes % Myelocytes % Abs Neuts (Manual) Monocytes # (Manual) Metamyelocytes # Myelocytes # Platelet Estimate Large Platelets Plt Morphology Comment RBC Morphology Polychromasia Basophilic Stippling Acanthocytes (Spur) VBG pH 7.26 L 7.17 L* VBG pCO2 71 75 VBG pO2 59 68 VBG HCO3 33 H 28 H VBG O2 Saturation 81.0 89.0 VBG Base Excess 4.0 -2.1 Sodium Potassium Chloride Carbon Dioxide Anion Gap BUN Creatinine Estim Creat Clear Calc Estimated GFR POC Glucose 165 H Random Glucose Calcium Total Bilirubin AST ALT Alkaline Phosphatase C-Reactive Protein Total Protein Albumin Procalcitonin 12/05/20 12/05/20 12/05/20 19:09 19:41 22:38 WBC RBC Hgb Hct MCV MCH MCHC RDW Plt Count MPV Immature Gran % (Auto) Neut % (Auto) Lymph % (Auto) Barbour % (Auto) Eos % (Auto) Baso % (Auto) Lymph # (Auto) Barbour # (Auto) Eos # (Auto) Baso # (Auto) Abs Immat Gran (auto) Absolute Neuts (auto) Absolute Nucleated RBC Nucleated RBC % (auto) Neutrophils % (Manual) Band Neutrophils % Monocytes % (Manual) Metamyelocytes % Myelocytes % Abs Neuts (Manual) Monocytes # (Manual) Metamyelocytes # Myelocytes # Platelet Estimate Large Platelets Plt Morphology Comment RBC Morphology Polychromasia Basophilic Stippling Acanthocytes (Spur) VBG pH 7.22 L VBG pCO2 70 VBG pO2 47 VBG HCO3 29 H VBG O2 Saturation 76.0 VBG Base Excess 0.2 Sodium Potassium Chloride Carbon Dioxide Anion Gap BUN Creatinine Estim Creat Clear Calc Estimated GFR POC Glucose 140 H 124 H Random Glucose Calcium Total Bilirubin AST ALT Alkaline Phosphatase C-Reactive Protein Total Protein Albumin Procalcitonin 12/06/20 12/06/20 12/06/20 02:48 06:00 06:00 WBC 16.9 H RBC 4.14 L Hgb 10.7 L Hct 37.0 MCV 89.4 MCH 25.8 L MCHC 28.9 L RDW 18.4 H Plt Count 291 D MPV 10.1 Immature Gran % (Auto) Cancelled Neut % (Auto) Cancelled Lymph % (Auto) Cancelled Barbour % (Auto) Cancelled Eos % (Auto) Cancelled Baso % (Auto) Cancelled Lymph # (Auto) Cancelled Barbour # (Auto) Cancelled Eos # (Auto) Cancelled Baso # (Auto) Cancelled Abs Immat Gran (auto) Cancelled Absolute Neuts (auto) Cancelled Absolute Nucleated RBC 0.140 H Nucleated RBC % (auto) 0.8 H Neutrophils % (Manual) 83 H Band Neutrophils % 10 H Monocytes % (Manual) 5 Metamyelocytes % 1 Myelocytes % 1 Abs Neuts (Manual) 15.7 H Monocytes # (Manual) 0.8 Metamyelocytes # 0.2 Myelocytes # 0.2 Platelet Estimate NORMAL Large Platelets PRESENT Plt Morphology Comment NOTED RBC Morphology NOTED Polychromasia 1+ (0-2) Basophilic Stippling 1+ (0-2) Acanthocytes (Spur) 1+ (0-2) VBG pH VBG pCO2 VBG pO2 VBG HCO3 VBG O2 Saturation VBG Base Excess Sodium Potassium Chloride Carbon Dioxide Anion Gap BUN Creatinine Estim Creat Clear Calc Estimated GFR POC Glucose 155 H Random Glucose Calcium Total Bilirubin AST ALT Alkaline Phosphatase C-Reactive Protein Total Protein Albumin Procalcitonin 0.62 12/06/20 12/06/20 12/06/20 06:00 06:04 06:56 WBC RBC Hgb Hct MCV MCH MCHC RDW Plt Count MPV Immature Gran % (Auto) Neut % (Auto) Lymph % (Auto) Barbour % (Auto) Eos % (Auto) Baso % (Auto) Lymph # (Auto) Barbour # (Auto) Eos # (Auto) Baso # (Auto) Abs Immat Gran (auto) Absolute Neuts (auto) Absolute Nucleated RBC Nucleated RBC % (auto) Neutrophils % (Manual) Band Neutrophils % Monocytes % (Manual) Metamyelocytes % Myelocytes % Abs Neuts (Manual) Monocytes # (Manual) Metamyelocytes # Myelocytes # Platelet Estimate Large Platelets Plt Morphology Comment RBC Morphology Polychromasia Basophilic Stippling Acanthocytes (Spur) VBG pH 7.10 L* VBG pCO2 88 VBG pO2 61 VBG HCO3 28 H VBG O2 Saturation 83.0 VBG Base Excess -3.4 Sodium 141 Potassium 5.8 H D Chloride 103 Carbon Dioxide 25 Anion Gap 19 BUN 74 H Creatinine 1.73 H Estim Creat Clear Calc 47.5 Estimated GFR 29 POC Glucose 200 H Random Glucose 213 H Calcium 9.1 Total Bilirubin 1.2 H AST 51 H ALT 34 H Alkaline Phosphatase 118 H D C-Reactive Protein 17.47 H Total Protein 7.3 Albumin 3.3 L Procalcitonin 12/06/20 11:36 WBC RBC Hgb Hct MCV MCH MCHC RDW Plt Count MPV Immature Gran % (Auto) Neut % (Auto) Lymph % (Auto) Barbour % (Auto) Eos % (Auto) Baso % (Auto) Lymph # (Auto) Barbour # (Auto) Eos # (Auto) Baso # (Auto) Abs Immat Gran (auto) Absolute Neuts (auto) Absolute Nucleated RBC Nucleated RBC % (auto) Neutrophils % (Manual) Band Neutrophils % Monocytes % (Manual) Metamyelocytes % Myelocytes % Abs Neuts (Manual) Monocytes # (Manual) Metamyelocytes # Myelocytes # Platelet Estimate Large Platelets Plt Morphology Comment RBC Morphology Polychromasia Basophilic Stippling Acanthocytes (Spur) VBG pH VBG pCO2 VBG pO2 VBG HCO3 VBG O2 Saturation VBG Base Excess Sodium Potassium Chloride Carbon Dioxide Anion Gap BUN Creatinine Estim Creat Clear Calc Estimated GFR POC Glucose 180 H Random Glucose Calcium Total Bilirubin AST ALT Alkaline Phosphatase C-Reactive Protein Total Protein Albumin Procalcitonin Microbiology Microbiology Results: Microbiology 12/04/20 16:31 Sputum - Suctioned Gram Stain - Final 12/04/20 16:31 Sputum - Suctioned Sputum Culture - Preliminary Gram negative emory 12/01/20 14:39 Sputum - Suctioned Gram Stain - Final 12/01/20 14:39 Sputum - Suctioned Sputum Culture - Final Stenotrophomonas maltophilia 11/22/20 08:15 Sputum - Suctioned Gram Stain - Final 11/22/20 08:15 Sputum - Suctioned Sputum Culture - Final Stenotrophomonas maltophilia 11/09/20 19:57 Blood - Venous Blood Culture - Final Coag negative Staphylococcus 11/09/20 20:54 Blood - Venous Blood Culture - Final No growth after 5 days. Progress Note: A&P Time Spent With Patient Time: Total time spent is greater than 50% in coordination of care (as documented) at patient's floor/unit and/or counseling patient: Total time spent with greater than 50% in coordination of care (as documented) at patient's floor/unit and/or counseling patient:: 0 Critical Care Time Critical Care Time (minutes): 180
[2020-12-06 13:02] LABS: D Dimer 671 NG/ML
[2020-12-06] MEDS: Calcium Gluconate/NaCl,Iso-Osm 2 GM/100 ML PLAST..BAG IV (13:06)
[2020-12-06 13:07] LABS: Lactic Acid 0.5 mmol/L (0.5-2.0)
[2020-12-06 13:11] LABS: Anion Gap 19 (12-20); Blood Urea Nitrogen 77 mg/dL (9-16); Calcium 8.6 mg/dL (8.4-10.2); Carbon Dioxide 26 mmol/L (22-29); Chloride 101 mmol/L (96-108); Creatinine Clr Calc Pharmacy 46.2; Estimated Glomerular Filt Rate 28; Glucose Random 199 mg/dL (60-115); Magnesium 2.5 mg/dL (1.6-2.6); Phosphorus 8.3 mg/dL (2.7-4.5); Potassium 5.8 mmol/L (3.3-5.1); Sodium 140 mmol/L (135-145)
[2020-12-06 13:24] LABS: B Type Natriuretic Peptide 880 pg/mL (<100); Troponin-I High Sensitivity 22.7 ng/L (<3.5-17.0)
[2020-12-06 13:27] LABS: VBG Base Excess -5.3 mmol/L; VBG HCO3 25 mmol/L (22-26); VBG pCO2 73 mmHg; VBG pH 7.13 (7.32-7.43); VBG pO2 52 mmHg
[2020-12-06 13:28] LABS: Venous Blood Gas Refer to POC result
[2020-12-06] MEDS: Insulin Regular/NS 100 UNIT/100 ML PLAST..BAG IVCONT (14:54)
[2020-12-06 15:01] LABS: Glucose, Whole Blood 151 mg/dL (60-115)
[2020-12-06 15:49] LABS: INTERNATIONAL NORM RATIO 1.1 (0.9-1.1); Prothrombin Time 13.5 SEC (10.8-13.0)
[2020-12-06] MEDS: Heparin Sodium,Porcine/1/2NS 25,000 UNIT/250 ML IV.SOLN 20.96 UNIT IVCONT (15:49)
[2020-12-06] MEDS: Heparin Sodium,Porcine 5,000 UNIT/ML VIAL 10000 UNIT IVPUSH (15:50)
[2020-12-06 15:51] LABS: VBG Base Excess -4.9 mmol/L; VBG HCO3 25 mmol/L (22-26); VBG pCO2 74 mmHg; VBG pH 7.13 (7.32-7.43); VBG pO2 52 mmHg
[2020-12-06 15:52] LABS: PTT Heparin Drip 34.1 SEC (53-77.9)
[2020-12-06 15:58] LABS: Hematocrit 35.3 % (37-47); Hemoglobin 10.4 g/dl (12.0-16.0); Mean Corpuscular HGB Conc 29.5 g/dl (31.0-35.0); Mean Corpuscular Hemoglobin 26.1 pg (27.0-33.0); Mean Corpuscular Volume 88.5 fL (80-98); Mean Platelet Volume 10.1 fL (9.4-12.3); Platelet Count 267 X10*3/uL (160-400); Red Blood Count 3.99 X10*6/uL (4.20-5.50); White Blood Count 13.8 X10*3/uL (4.8-10.8)
[2020-12-06 15:59] LABS: Venous Blood Gas Refer to POC result
[2020-12-06 16:09] LABS: NRBC Pct Auto 2.2 /100WBC (0.0-0.2)
[2020-12-06] MEDS: propofoL 1,000 MG/100 ML VIAL 17.96 MG IVCONT ×2 (18:28→23:01)
[2020-12-06 18:57] LABS: Glucose, Whole Blood 177 mg/dL (60-115)
[2020-12-06] MEDS: Melatonin 3 MG TABLET 9 MG G-TUBE (20:32)
[2020-12-06 23:05] LABS: Glucose, Whole Blood 183 mg/dL (60-115)
[2020-12-06 23:42] LABS: PTT Heparin Drip > 200.0 SEC (53-77.9)
[2020-12-07] VITALS (34 sets, daily range): BP systolic 102–157; BP diastolic 48–72; PULSE 91–113; RESP 16–35; TEMP 36.3–37.2; O2SAT 71–85
[2020-12-07] MEDS: Albuterol Sulfate (0.083%) 2.5 MG/3 ML VIAL.NEB INHALE (00:10)
[2020-12-07 01:15] LABS: Glucose, Whole Blood 163 mg/dL (60-115)
[2020-12-07 01:55] LABS: PTT Heparin Drip 187.4 SEC (53-77.9)
[2020-12-07] MEDS: 0.9 % Sodium Chloride Flush 3 ML SYRINGE IVFLUSH ×3 (02:14→16:19)
[2020-12-07] MEDS: Piperacillin Sodium/Tazobactam 4.5 GM in 0.9 % Sodium Chloride 100 ML IV ×3 (02:24→14:04)
--- NOTE | 2020-12-07 03:19 | PC.NURSE ---
unresponsive. noxious stimulation elicits no eye opening. extremities flaccid. no withdrawl response. complexion sallow. skin hot/dry. stage 2 ulcerations on coccyx and bilat buttocks. anasarca is well noted. resp status remains extremely tenuous. despite fio2 100%, sao2 reman 83-85%. breath sounds coarse with scattered i/e rhonchi throughout. 8.0 tracheostomy tube midline and attached to mechanical ventilator with the following settings ps 15 fio2 100% peep 12 cm. vts 450-500. vtes 9-[address] with unifocal pvcs. low dose levophed necessary to maintain b/p guidelines. abdomen morbidly obese/silent/soft. peg tube midline clamped. gates catheter patent and draining conc alyse urine. u/o 40-70 ml/hr. insulin drip at 4ux/hr. poc reported to provider q 4hr and adjustments made. not following insulin protocol per md. heparin drip titrated as per protocol. sabrina canela and carl called in-plan of care reviewed and questions answered.
[2020-12-07 03:38] LABS: PTT Heparin Drip 103.3 SEC (53-77.9)
[2020-12-07] MEDS: propofoL 1,000 MG/100 ML VIAL 17.96 MG IVCONT ×2 (04:48→07:55)
[2020-12-07 04:50] LABS: PTT Heparin Drip 76.7 SEC (53-77.9)
[2020-12-07 05:54] LABS: VBG Base Excess 5.9 mmol/L; VBG HCO3 36 mmol/L (22-26); VBG pCO2 83 mmHg; VBG pH 7.24 (7.32-7.43); VBG pO2 47 mmHg
[2020-12-07 05:55] LABS: Hematocrit 34.6 % (37-47); Hemoglobin 10.1 g/dl (12.0-16.0); Mean Corpuscular HGB Conc 29.2 g/dl (31.0-35.0); Mean Corpuscular Hemoglobin 25.6 pg (27.0-33.0); Mean Corpuscular Volume 87.6 fL (80-98); Mean Platelet Volume 9.9 fL (9.4-12.3); Platelet Count 265 X10*3/uL (160-400); Red Blood Count 3.95 X10*6/uL (4.20-5.50); Red Cell Distribution Width 18.3 % (11.0-16.0); Venous Blood Gas Refer to POC result
[2020-12-07 06:01] LABS: INTERNATIONAL NORM RATIO 1.2 (0.9-1.1); Prothrombin Time 14.6 SEC (10.8-13.0)
[2020-12-07 06:07] LABS: NRBC Pct Auto 1.6 /100WBC (0.0-0.2); WBC ABN SCTR FOR CBC 1; White Blood Count 19.3 X10*3/uL (4.8-10.8)
[2020-12-07 06:23] LABS: Band Neutrophils Percent 7 % (3-5); Lymphocytes Absolute Manual 0.4 X10*3/uL (0.6-4.8); Lymphocytes Percent Manual 2 % (20-40); Metamyelocytes Absolute 0.8 X10*3/uL; Metamyelocytes Percent 4 %; Monocytes Absolute Manual 1.4 X10*3/uL (0.0-1.2); Monocytes Percent Manual 7 % (2-11); Myelocytes Absolute 0.8 X10*/uL; Myelocytes Percent 4 %; Neutrophils Percent Manual 76 % (45-73); Nucleated Red Blood Cells 3 /100WBC (0-0)
[2020-12-07 06:25] LABS: RBC Morphology NOTED
[2020-12-07 06:26] LABS: Basophilic Stippling 1+ (0-2) /OIF; Polychromasia 1+ (0-2) /OIF; Toxic Vacuolation PRESENT
[2020-12-07 06:27] LABS: Large Platelet PRESENT; Platelet Estimate NORMAL (NORMAL); Platelet Morphology Comment NORMAL
[2020-12-07] MEDS: methylPREDNISolone Sod Succ 125 MG/2 ML VIAL 500 MG IV ×2 (06:33→18:04)
[2020-12-07] MEDS: Ascorbic Acid 500 MG TABLET 1000 MG G-TUBE ×3 (06:33→18:04)
[2020-12-07 06:43] LABS: Alanine Aminotransferase 38 U/L (0-31); Albumin Level 3.1 g/dL (3.5-5.0); Alkaline Phosphatase 122 U/L (39-117); Anion Gap 20 (12-20); Aspartate Amino Transferase 50 U/L (5-31); Bilirubin Total 1.4 mg/dL (0.0-1.0); Calcium 8.4 mg/dL (8.4-10.2); Carbon Dioxide 29 mmol/L (22-29); Chloride 99 mmol/L (96-108); Creatinine Clr Calc Pharmacy 45.4; Estimated Glomerular Filt Rate 28; Glucose Random 146 mg/dL (60-115); Potassium 4.5 mmol/L (3.3-5.1); Sodium 143 mmol/L (135-145)
[2020-12-07 06:46] LABS: Blood Urea Nitrogen 81 mg/dL (9-16)
[2020-12-07] MEDS: Sodium Zirconium Cyclosilicate 10 GM POWD.PACK PO (07:55)
[2020-12-07] MEDS: Lactulose 20 GM/30 ML SOLUTION PO ×3 (07:55→16:19)
[2020-12-07] MEDS: Chlorhexidine Gluc Oral Rinse 15 ML MOUTHWASH BUCCAL ×2 (07:55→14:04)
[2020-12-07] MEDS: Famotidine/PF 20 MG/2 ML VIAL IVPUSH (07:55)
[2020-12-07] MEDS: Heparin Sodium,Porcine/1/2NS 25,000 UNIT/250 ML IV.SOLN 14.97 UNIT IVCONT (07:56)
[2020-12-07] MEDS: Thiamine HCL 100 MG TABLET 200 MG G-TUBE (07:56)
[2020-12-07] MEDS: Cholecalciferol (Vitamin D3) 25 MCG TABLET 50 MCG G-TUBE (07:56)
[2020-12-07] MEDS: Metoprolol Tartrate 25 MG TABLET PO (07:56)
[2020-12-07] MEDS: Nystatin Powder 15 GM BOTTLE 1 APPL TOPICAL (07:57)
[2020-12-07] MEDS: fentaNYL citrate/NS 1,000 MCG/100 ML PLAST..BAG 7.5 MCG IVCONT (08:36)
[2020-12-07 11:01] LABS: PTT Heparin Drip 128.8 SEC (53-77.9)
[2020-12-07 11:54] LABS: Glucose, Whole Blood 112 mg/dL (60-115)
[2020-12-07 12:09] LABS: Glucose, Whole Blood 170 mg/dL (60-115)
[2020-12-07 12:13] LABS: PTT Heparin Drip 97.5 SEC (53-77.9)
--- NOTE | 2020-12-07 12:35 | P.PNCC_ITS ---
Subjective Subjective Date of Service: 12/07/20 Interval History: Mrs. Carr was admitted to the ICU on November 18 with acute respiratory failure secondary to COVID pneumonia. The patient is a 65-year-old F with PMHx of type 2 diabetes w CKD (last baseline BUN/creat 37/1.3 on 08/03/20), HTN, morbid obesity, ischemic heart disease, chronic diastolic CHF, obstructive sleep apnea, obesity/hypoventilation syndrome noncompliant with CPAP, along with: Hyperlipidemia Chronic pancreatitis COPD Degenerative arthritis of knees Diverticulosis Dysuria Memory loss Pulmonary embolism Right heart failure (secondary to left heart failure) SVT Diabetic polyneuropathy Vertigo She presented to the ED on Nov 09 with h/o one week of SOB and cough. On arrival, Sat was 50% on room air. COVID PCR was positive. She was put on HFNC and admitted to Medicine. She was given Decadron and Remdesivir and 10 days of ceftiriaxone. She required brief NIV w CPAP/BiPAP betw Nov 13-. On November 18, she failed NIV bec of hypoxemia and was brought down to the ICU and intubated. On November 22, her WBC spiked and a sputum showed 4+ polys, 4+ GNRs, and culture grew stenotrophomonas. She was given three days of Zosyn. She had an episode of AFib with RVR requiring cardioversion, now controlled on propafenone and metoprolol. Had also been on Eliquis, which was stopped 2? bloody tracheal secretions. She has been afebrile almost the entire time she has been the here, except for a few isolated temperature spikes, the last one was a single temperature to 102 degrees on November 29. On November 30, her WBC bumped to 14 and she was started on Levaquin. That was then changed to Doxycycline. On November 29, FiO2 got as low as 40%, but the patient failed a weaning trial and FiO2 requirement has risen progressively. Dr. Gottlieb did tracheostomy and PEG on December 03. FiO2 has continued to rise and has been at 100% since the , along with a rise in her PvCO2 to the 70?s and then 80s. We tried pa ralyzing her, which was catastrophic bec we couldn?t ventilate her, Best Vt on PCV was about 280cc, with PIP in the 40?s. So we let the Nimbex wear off and got her breathing on PSV. For the last two days, we?ve gotten the best tidal vols on PSV with low dose fentanyl gtt. I?ve had daily conversations with the family (see below). Last chest x-ray on 12/05 showed no PTX, but her ARDS was worse. I started her on pulse steroids (1G daily x 3 days). Sputum grew out GNR, so we changed her to Zosyn. BUN/creat are climbing, with no response to a fluid load. DDimer was steady 600s, trop is low, BNP is 800s, DVT study was negative. My bedside echo yesterday (to r/o PE) showed: Image quality: Very good. Findings: 1. At least moderate LVH. 2. LV cavity size is small, with hyperdynamic LV fxn, and no RWMA noted. EF 65- 70%. 3. RV cavity is definitely enlarged, with RV:LV ratio 1.5-2.0, and a straightened septum. 4. Atria not adequately assessed. 5. AoV not adeq assessed. 6. MV morphologically normal trace MR by color rafal. 7. TV morphologically normal. With 2-3+ TR by color rafal, and CWD signal measuring 4.1 m/sec (gradient of 67mm). 8. IVC measured 2.44 cm w no insp collapse. Estimated CVP 15cm. Estimated RVSP 82mm. She is unable to be transported to CT or V/Q scan. I started her on a heparin infusion. Currently propofol is at 30 mcg, fentanyl is at 75 mcg, Levophed is at 0.06 mcg, insulin at 3 units/hr, and bicarb at 60 cc/hour. She is unresponsive. See Vital Signs below. HR 94, BP 133/59. She continues afebrile. With PSV 15/100%/+12, RR is 15, Vt 440cc, Ve 6.5L, ETCO2 59, Sat 82%. CVBG this morning showed 7.24/83/+5. PER, about 4mm. No JVD, Chest shows coarse BS, normal exp phase. Very obese, abdomen benign, at least 1+ anasarca, neuro nonfocal (albeit noninteractive). CURRENT MEDICATIONS also include: Solumedrol 500 mg bid (will finish 3 days tomorrow morning, then continue with 80 mg bid) Vit C Vit D Pepcid Melatonin Thiamine Heparin gtt Metoprolol 25 bid Propafenone Zosyn (day #3) LABORATORY DATA: As below. Notably, WBC up to 19, BUN/creat up to 81/1.8, K down to 4.5 (after the K binder), bicarb 29. MICROBIOLOGY: Sputum GS from 12/04 shows 3+ polys, 4+GNR. Culture is growing 4+ GNR, yet to be ID?d. Last sputum from 12/01 grew stenotrophomonas. IMPRESSION: 1. Underlying morbid obesity, DM, and CAD. 2. Underlying right heart failure 2? morbid obesity and MOISÉS. 3. Pneumonia and ARDS due to COVID-19. Symptom onset approximately Nov 02. 4. Acute hypoxemic and now hypercarbic respiratory failure. 2? to above. She had Remdesivir and ten days of Decadron. On 12/02 I started her on Solumedrol 80mg bid, Vit C, Vit D, thiamine, and melatonin. Her disease is worsening and now she?s hypercabic. Started pulse steroids on 12/05. Survival is unlikely. Over last two days, she?s done best on PSV, using the fentanyl to control RR and the propofol to modulate the fentanyl. Turned her fentanyl and propofol off this morning. She does not wake up. We?ll turn the fent back on at 25ug when RR hits 22, and then use the propofol to modulate her resp rate and pattern. Spoke with the entire family yesterday here for about an hour. NARESH Tafoya talked with them further in the evening last night. The last son is flying in tomorrow from [place]. 5. AFib w/ RVR. Adequately controlled on the metoprolol and propafenone. She?s been in SR all week. 6. H/o CHF. No problem with her LV. RV is very dilated on yesterday?s echo. 7. Renal: BUN and creat and ratio have risen dramatically, suggestive of RHF. Altho the [id number] rise in the BUN could be 2? to the steroids. 8. Metabolic. Low pH, high K+. Started bicarb drip, potassium binder, and calcium. Already on insulin. 9. Diabetes: Continue insulin drip. Now on high dose steroids 10. ID: Started doxycycline 12/03 bec of elevated WBC. Changed to Zosyn 12/05 bec of the GNR in sputum. BCs negative. Current leukocytosis could be 2? steroids too. 11. Nutrtition. Stopped tube feeds bec of high K+. See my note from yesterday in regards to family discussions. Critical care time: 70+ min. Physical Exam Vital Signs: Vital Signs: Last Vital Signs Temp 98.2 F 12/07/20 11:50 Pulse 95 12/07/20 11:50 Resp 16 12/07/20 11:50 BP 130/63 12/07/20 11:50 Pulse Ox 82 L 12/07/20 11:50 Body Mass Index 53.2 Objective Data Labs CBC & Chem 7: 12/07/20 05:44 12/07/20 05:44 Labs: Laboratory Results - last 24 hr 12/06/20 12/06/20 12/06/20 12:29 12:29 12:29 WBC RBC Hgb Hct MCV MCH MCHC RDW Plt Count MPV Immature Gran % (Auto) Neut % (Auto) Lymph % (Auto) Petroleum % (Auto) Eos % (Auto) Baso % (Auto) Lymph # (Auto) Petroleum # (Auto) Eos # (Auto) Baso # (Auto) Abs Immat Gran (auto) Absolute Neuts (auto) Absolute Nucleated RBC Nucleated RBC % (auto) Neutrophils % (Manual) Band Neutrophils % Lymphocytes % (Manual) Monocytes % (Manual) Metamyelocytes % Myelocytes % Abs Neuts (Manual) Lymphocytes # (Manual) Monocytes # (Manual) Metamyelocytes # Myelocytes # Nucleated RBCs Toxic Vacuolation Platelet Estimate Large Platelets Plt Morphology Comment RBC Morphology Polychromasia Basophilic Stippling PT INR PTT (Heparin Protocol) D-Dimer 671 VBG pH VBG pCO2 VBG pO2 VBG HCO3 VBG O2 Saturation VBG Base Excess Sodium Potassium Chloride Carbon Dioxide Anion Gap BUN Creatinine Estim Creat Clear Calc Estimated GFR POC Glucose Random Glucose Lactic Acid 0.5 Calcium Phosphorus Magnesium Total Bilirubin AST ALT Alkaline Phosphatase Troponin I High Sens 22.7 H D B-Natriuretic Peptide 880 H Total Protein Albumin 12/06/20 12/06/20 12/06/20 12:32 13:16 14:57 WBC RBC Hgb Hct MCV MCH MCHC RDW Plt Count MPV Immature Gran % (Auto) Neut % (Auto) Lymph % (Auto) Petroleum % (Auto) Eos % (Auto) Baso % (Auto) Lymph # (Auto) Petroleum # (Auto) Eos # (Auto) Baso # (Auto) Abs Immat Gran (auto) Absolute Neuts (auto) Absolute Nucleated RBC Nucleated RBC % (auto) Neutrophils % (Manual) Band Neutrophils % Lymphocytes % (Manual) Monocytes % (Manual) Metamyelocytes % Myelocytes % Abs Neuts (Manual) Lymphocytes # (Manual) Monocytes # (Manual) Metamyelocytes # Myelocytes # Nucleated RBCs Toxic Vacuolation Platelet Estimate Large Platelets Plt Morphology Comment RBC Morphology Polychromasia Basophilic Stippling PT INR PTT (Heparin Protocol) D-Dimer VBG pH 7.13 L* VBG pCO2 73 VBG pO2 52 VBG HCO3 25 VBG O2 Saturation 79.0 VBG Base Excess -5.3 Sodium 140 Potassium 5.8 H Chloride 101 Carbon Dioxide 26 Anion Gap 19 BUN 77 H Creatinine 1.78 H Estim Creat Clear Calc 46.2 Estimated GFR 28 POC Glucose 151 H Random Glucose 199 H Lactic Acid Calcium 8.6 Phosphorus 8.3 H Magnesium 2.5 Total Bilirubin AST ALT Alkaline Phosphatase Troponin I High Sens B-Natriuretic Peptide Total Protein Albumin 12/06/20 12/06/20 12/06/20 15:34 15:34 15:45 WBC 13.8 H RBC 3.99 L Hgb 10.4 L Hct 35.3 L MCV 88.5 MCH 26.1 L MCHC 29.5 L RDW 18.0 H Plt Count 267 MPV 10.1 Immature Gran % (Auto) Neut % (Auto) Lymph % (Auto) Petroleum % (Auto) Eos % (Auto) Baso % (Auto) Lymph # (Auto) Petroleum # (Auto) Eos # (Auto) Baso # (Auto) Abs Immat Gran (auto) Absolute Neuts (auto) Absolute Nucleated RBC 0.300 H Nucleated RBC % (auto) 2.2 H Neutrophils % (Manual) Band Neutrophils % Lymphocytes % (Manual) Monocytes % (Manual) Metamyelocytes % Myelocytes % Abs Neuts (Manual) Lymphocytes # (Manual) Monocytes # (Manual) Metamyelocytes # Myelocytes # Nucleated RBCs Toxic Vacuolation Platelet Estimate Large Platelets Plt Morphology Comment RBC Morphology Polychromasia Basophilic Stippling PT 13.5 H INR 1.1 PTT (Heparin Protocol) 34.1 L D-Dimer VBG pH 7.13 L* VBG pCO2 74 VBG pO2 52 VBG HCO3 25 VBG O2 Saturation 77.0 VBG Base Excess -4.9 Sodium Potassium Chloride Carbon Dioxide Anion Gap BUN Creatinine Estim Creat Clear Calc Estimated GFR POC Glucose Random Glucose Lactic Acid Calcium Phosphorus Magnesium Total Bilirubin AST ALT Alkaline Phosphatase Troponin I High Sens B-Natriuretic Peptide Total Protein Albumin 12/06/20 12/06/20 12/06/20 18:54 22:56 23:00 WBC RBC Hgb Hct MCV MCH MCHC RDW Plt Count MPV Immature Gran % (Auto) Neut % (Auto) Lymph % (Auto) Petroleum % (Auto) Eos % (Auto) Baso % (Auto) Lymph # (Auto) Petroleum # (Auto) Eos # (Auto) Baso # (Auto) Abs Immat Gran (auto) Absolute Neuts (auto) Absolute Nucleated RBC Nucleated RBC % (auto) Neutrophils % (Manual) Band Neutrophils % Lymphocytes % (Manual) Monocytes % (Manual) Metamyelocytes % Myelocytes % Abs Neuts (Manual) Lymphocytes # (Manual) Monocytes # (Manual) Metamyelocytes # Myelocytes # Nucleated RBCs Toxic Vacuolation Platelet Estimate Large Platelets Plt Morphology Comment RBC Morphology Polychromasia Basophilic Stippling PT INR PTT (Heparin Protocol) > 200.0 H* D D-Dimer VBG pH VBG pCO2 VBG pO2 VBG HCO3 VBG O2 Saturation VBG Base Excess Sodium Potassium Chloride Carbon Dioxide Anion Gap BUN Creatinine Estim Creat Clear Calc Estimated GFR POC Glucose 177 H 183 H Random Glucose Lactic Acid Calcium Phosphorus Magnesium Total Bilirubin AST ALT Alkaline Phosphatase Troponin I High Sens B-Natriuretic Peptide Total Protein Albumin 12/07/20 12/07/20 12/07/20 01:09 01:10 03:02 WBC RBC Hgb Hct MCV MCH MCHC RDW Plt Count MPV Immature Gran % (Auto) Neut % (Auto) Lymph % (Auto) Petroleum % (Auto) Eos % (Auto) Baso % (Auto) Lymph # (Auto) Petroleum # (Auto) Eos # (Auto) Baso # (Auto) Abs Immat Gran (auto) Absolute Neuts (auto) Absolute Nucleated RBC Nucleated RBC % (auto) Neutrophils % (Manual) Band Neutrophils % Lymphocytes % (Manual) Monocytes % (Manual) Metamyelocytes % Myelocytes % Abs Neuts (Manual) Lymphocytes # (Manual) Monocytes # (Manual) Metamyelocytes # Myelocytes # Nucleated RBCs Toxic Vacuolation Platelet Estimate Large Platelets Plt Morphology Comment RBC Morphology Polychromasia Basophilic Stippling PT INR PTT (Heparin Protocol) 187.4 H* 103.3 H D D-Dimer VBG pH VBG pCO2 VBG pO2 VBG HCO3 VBG O2 Saturation VBG Base Excess Sodium Potassium Chloride Carbon Dioxide Anion Gap BUN Creatinine Estim Creat Clear Calc Estimated GFR POC Glucose 163 H Random Glucose Lactic Acid Calcium Phosphorus Magnesium Total Bilirubin AST ALT Alkaline Phosphatase Troponin I High Sens B-Natriuretic Peptide Total Protein Albumin 12/07/20 12/07/20 12/07/20 04:13 05:44 05:44 WBC 19.3 H RBC 3.95 L Hgb 10.1 L Hct 34.6 L MCV 87.6 MCH 25.6 L MCHC 29.2 L RDW 18.3 H Plt Count 265 MPV 9.9 Immature Gran % (Auto) Cancelled Neut % (Auto) Cancelled Lymph % (Auto) Cancelled Petroleum % (Auto) Cancelled Eos % (Auto) Cancelled Baso % (Auto) Cancelled Lymph # (Auto) Cancelled Petroleum # (Auto) Cancelled Eos # (Auto) Cancelled Baso # (Auto) Cancelled Abs Immat Gran (auto) Cancelled Absolute Neuts (auto) Cancelled Absolute Nucleated RBC 0.300 H Nucleated RBC % (auto) 1.6 H Neutrophils % (Manual) 76 H Band Neutrophils % 7 H Lymphocytes % (Manual) 2 L Monocytes % (Manual) 7 Metamyelocytes % 4 Myelocytes % 4 Abs Neuts (Manual) 16.0 H Lymphocytes # (Manual) 0.4 L Monocytes # (Manual) 1.4 H Metamyelocytes # 0.8 Myelocytes # 0.8 Nucleated RBCs 3 H Toxic Vacuolation PRESENT Platelet Estimate NORMAL Large Platelets PRESENT Plt Morphology Comment NORMAL RBC Morphology NOTED Polychromasia 1+ (0-2) Basophilic Stippling 1+ (0-2) PT INR PTT (Heparin Protocol) 76.7 D D-Dimer VBG pH VBG pCO2 VBG pO2 VBG HCO3 VBG O2 Saturation VBG Base Excess Sodium 143 Potassium 4.5 D Chloride 99 Carbon Dioxide 29 Anion Gap 20 BUN 81 H* Creatinine 1.81 H Estim Creat Clear Calc 45.4 Estimated GFR 28 POC Glucose Random Glucose 146 H Lactic Acid Calcium 8.4 Phosphorus Magnesium Total Bilirubin 1.4 H AST 50 H ALT 38 H Alkaline Phosphatase 122 H Troponin I High Sens B-Natriuretic Peptide Total Protein 7.0 Albumin 3.1 L 12/07/20 12/07/20 12/07/20 05:44 05:48 09:24 WBC RBC Hgb Hct MCV MCH MCHC RDW Plt Count MPV Immature Gran % (Auto) Neut % (Auto) Lymph % (Auto) Petroleum % (Auto) Eos % (Auto) Baso % (Auto) Lymph # (Auto) Petroleum # (Auto) Eos # (Auto) Baso # (Auto) Abs Immat Gran (auto) Absolute Neuts (auto) Absolute Nucleated RBC Nucleated RBC % (auto) Neutrophils % (Manual) Band Neutrophils % Lymphocytes % (Manual) Monocytes % (Manual) Metamyelocytes % Myelocytes % Abs Neuts (Manual) Lymphocytes # (Manual) Monocytes # (Manual) Metamyelocytes # Myelocytes # Nucleated RBCs Toxic Vacuolation Platelet Estimate Large Platelets Plt Morphology Comment RBC Morphology Polychromasia Basophilic Stippling PT 14.6 H INR 1.2 H PTT (Heparin Protocol) D-Dimer VBG pH 7.24 L VBG pCO2 83 VBG pO2 47 VBG HCO3 36 H VBG O2 Saturation 72.0 VBG Base Excess 5.9 Sodium Potassium Chloride Carbon Dioxide Anion Gap BUN Creatinine Estim Creat Clear Calc Estimated GFR POC Glucose 112 Random Glucose Lactic Acid Calcium Phosphorus Magnesium Total Bilirubin AST ALT Alkaline Phosphatase Troponin I High Sens B-Natriuretic Peptide Total Protein Albumin 12/07/20 12/07/20 12/07/20 10:29 11:48 12:04 WBC RBC Hgb Hct MCV MCH MCHC RDW Plt Count MPV Immature Gran % (Auto) Neut % (Auto) Lymph % (Auto) Petroleum % (Auto) Eos % (Auto) Baso % (Auto) Lymph # (Auto) Petroleum # (Auto) Eos # (Auto) Baso # (Auto) Abs Immat Gran (auto) Absolute Neuts (auto) Absolute Nucleated RBC Nucleated RBC % (auto) Neutrophils % (Manual) Band Neutrophils % Lymphocytes % (Manual) Monocytes % (Manual) Metamyelocytes % Myelocytes % Abs Neuts (Manual) Lymphocytes # (Manual) Monocytes # (Manual) Metamyelocytes # Myelocytes # Nucleated RBCs Toxic Vacuolation Platelet Estimate Large Platelets Plt Morphology Comment RBC Morphology Polychromasia Basophilic Stippling PT INR PTT (Heparin Protocol) 128.8 H* D 97.5 H D D-Dimer VBG pH VBG pCO2 VBG pO2 VBG HCO3 VBG O2 Saturation VBG Base Excess Sodium Potassium Chloride Carbon Dioxide Anion Gap BUN Creatinine Estim Creat Clear Calc Estimated GFR POC Glucose 170 H Random Glucose Lactic Acid Calcium Phosphorus Magnesium Total Bilirubin AST ALT Alkaline Phosphatase Troponin I High Sens B-Natriuretic Peptide Total Protein Albumin Microbiology Microbiology Results: Microbiology 12/04/20 16:31 Sputum - Suctioned Gram Stain - Final 12/04/20 16:31 Sputum - Suctioned Sputum Culture - Final Stenotrophomonas maltophilia 12/01/20 14:39 Sputum - Suctioned Gram Stain - Final 12/01/20 14:39 Sputum - Suctioned Sputum Culture - Final Stenotrophomonas maltophilia 11/22/20 08:15 Sputum - Suctioned Gram Stain - Final 11/22/20 08:15 Sputum - Suctioned Sputum Culture - Final Stenotrophomonas maltophilia 11/09/20 19:57 Blood - Venous Blood Culture - Final Coag negative Staphylococcus 11/09/20 20:54 Blood - Venous Blood Culture - Final No growth after 5 days. Progress Note: A&P Time Spent With Patient Time: Total time spent is greater than 50% in coordination of care (as documented) at patient's floor/unit and/or counseling patient: Total time spent with greater than 50% in coordination of care (as documented) at patient's floor/unit and/or counseling patient:: 0 Critical Care Time Critical Care Time (minutes): 60
[2020-12-07 13:34] LABS: PTT Heparin Drip 66.2 SEC (53-77.9)
[2020-12-07 16:12] LABS: Glucose, Whole Blood 159 mg/dL (60-115)
[2020-12-07] MEDS: fentaNYL citrate/PF 100 MCG/2 ML VIAL 20 MCG IVPUSH (16:42)
[2020-12-07] MEDS: propofoL 1,000 MG/100 ML VIAL 8.98 MG IVCONT (17:39)
[2020-12-07] MEDS: Insulin Regular/NS 100 UNIT/100 ML PLAST..BAG IVCONT (18:04)
--- NOTE | 2020-12-07 18:22 | PC.NURSE ---
Addendum entered by Ange De La Cruz RN 12/07/20 18:47: Family updated extensivlly from this RN and MD regarding patient current status - Family at bedside, career technical supervisor called per family request Original Note: S/E Afebrile Sedated on Propofol & Fentanyl gtt Flaccid, no pain response, pupils 1mm sluggish Weak cough, absent gag ST HR 110's, PVCs Heparin gtt titrated per protocol - next ptthd 1945 Generalized anasarca Levophed gtt titrated off LS rhonchi throughout O2 sat slowly decreasing throughout shift - currently 75-76% - MD aware and at bedside Medications adjusted per MD - see titration Vent settings adjusted by MD - PS 07/09/100% TV 450-480's, RR low 20's [place] tinged inline secretions - MD aware Peg tube clamped - tube feeding on hold Insulin gtt continued per MD orders Urine output decreased throughout shift Unable to reposition patient due to compromised respiratory status - MD aware
[2020-12-07 19:04] LABS: Glucose, Whole Blood 154 mg/dL (60-115)
--- NOTE | 2020-12-07 20:31 | P.ACPN_ITS ---
Advanced Care Planning Note Advanced Care Planning Note Discussed with: family member(s) Time spent (in minutes): 60 Narrative: I held an in-person meeting for approximately 45 minutes with the patient's children, once again we went over the whole clinical scenario, disease process, treatment, poor prognosis and particularly goals of care. I was very honest with them about her current clinical situation as upon arriving, the patient continues to have desaturation in the low 70s despite of all our medical efforts, medication administration and current vent settings. Many questions were answered, and after this lengthy meeting, all children have finally agreed to make her BIOMETRIC TECHNICIAN and to disconnect the patient from the ventilator. A detailed discussion on what end of life care and how we would make her comfortable took place including the administration of opiates, as sedatives and if necessary anti secretion medications. Each 1 of her children had time to going to the room and say their goodbyes. I have informed hours nursing personnel and respiratory therapy of the decision and will proceed to remove the patient from the ventilator. At 8:01 a.m., the patient was given 50 mcg of fentanyl, proceeded to disconnect her from the vent. We will monitor her respirations and rhythm, given some additional effort, 2 more doses of 50 mcg of fentanyl were administered in the fentanyl drip was increased to 100. These maintain the patient is very comfortable and and the patient at 2017 pm. At this time, the patient has no heartbeat, no palpable pulses, pupils are fixed at 5 mm bilaterally, overall that anterior chamber and cornea of the eyes appear glossy, no spontaneous breathing. There is no corneal reflexes bilaterally, capillary refill of the fingers and toes is significantly delayed and there is cyanosis with cool extremities. Patient was pronounced at 2017pm . Certificate Completed. [facility] Called by RN. Discussed in detail with Dr. Arellano. He is aware of all the above. Problems Discussed (1) Pneumonia due to COVID-19 virus: (2) Fever, unknown origin:
--- NOTE | 2020-12-07 20:31 | PC.NURSE ---
Assumed care of patient at 1915. Satting 70-72% on max vent support. Family at bedside. Decision to terminally wean. [employer] called in per family request. Vent removed approx 1999. All drips turned off except fentanyl @ 100 mcg/hr per PA. Asystole 2017. PA and family at bedside for entire process. NE[facility] declined. [id number]
--- NOTE | 2020-12-07 21:12 | PM.DS ---
DS: Providers Provider Date of Service: 12/07/20 Date of admission: 11/09/20 23:12 Date of discharge: 12/07/20 Primary care physician: Mily Waite MD Admitting clinician: Jakub Arellano Attending physician on admission: Jakub Arellano Consults: ADMISSION/ DISCHARGE DIAGNOSIS: 1. Underlying morbid obesity, DM, and CAD. 2. Underlying right heart failure 2? morbid obesity and MOISÉS. 3. Pneumonia and ARDS due to COVID-19. Symptom onset approximately Nov 02. 4. Acute hypoxemic and now hypercarbic respiratory failure. 5. AFib w/ RVR. Adequately controlled on the metoprolol and propafenone. She?s been in SR all week. 6. H/o CHF. No problem with her LV. RV is very dilated on yesterday?s echo. 7. Renal: BUN and creat and ratio have risen dramatically, suggestive of RHF. 8. Metabolic. Low pH, high K+. 9. Diabetes: 10. ID: leukocytosis could be 2? steroids too. 11. Nutrtition. Stopped tube feeds bec of high K+. HPI / HOSPITAL COURSE: I held an in-person meeting for approximately 45 minutes with the patient's children, once again we went over the whole clinical scenario, disease process, treatment, poor prognosis and particularly goals of care. I was very honest with them about her current clinical situation as upon arriving, the patient continues to have desaturation in the low 70s despite of all our medical efforts, medication administration and current vent settings. Many questions were answered, and after this lengthy meeting, all children have finally agreed to make her [employer] and to disconnect the patient from the ventilator. A detailed discussion on what end of life care and how we would make her comfortable took place including the administration of opiates, as sedatives and if necessary anti secretion medications. Each 1 of her children had time to going to the room and say their goodbyes. I have informed nursing personnel and respiratory therapy of the decision and will proceed to remove the patient from the ventilator. At 20:01 p.m, the patient was given 50 mcg of fentanyl, proceeded to disconnect her from the vent. We will monitor her respirations and rhythm, given some additional effort, 2 more doses of 50 mcg of fentanyl were administered in the fentanyl drip was increased to 100. These maintain the patient is very comfortable and and the patient at 2016 pm. At this time, the patient has no heartbeat, no palpable pulses, pupils are fixed at 5 mm bilaterally, overall that anterior chamber and cornea of the eyes appear glossy, no spontaneous breathing. There is no corneal reflexes bilaterally, capillary refill of the fingers and toes is significantly delayed and there is cyanosis with cool extremities. Patient was pronounced at 2017pm . Certificate Completed. [facility] Called by RN. CLINICAL PRESCEDENT: Mrs. Carr was admitted to the ICU on November 18 with acute respiratory failure secondary to COVID pneumonia. The patient is a 65-year-old F with PMHx of type 2 diabetes w CKD (last baseline BUN/creat 37/1.3 on 08/03/20), HTN, morbid obesity, ischemic heart disease, chronic diastolic CHF, obstructive sleep apnea, obesity/hypoventilation syndrome noncompliant with CPAP, along with:Hyperlipidemia; Chronic pancreatitis; COPD; Degenerative arthritis of knees; Diverticulosis; Dysuria; Memory loss; Pulmonary embolism Right heart failure (secondary to left heart failure); SVT; Diabetic polyneuropathy; Vertigo. She presented to the ED on Nov 09 with h/o one week of SOB and cough. On arrival, Sat was 50% on room air. COVID PCR was positive. She was put on HFNC and admitted to Medicine. She was given Decadron and Remdesivir and 10 days of ceftiriaxone. She required brief NIV w CPAP/BiPAP betw Nov 13-. On November 18, she failed NIV bec of hypoxemia and was brought down to the ICU and intubated. On November 22, her WBC spiked and a sputum showed 4+ polys, 4+ GNRs, and culture grew stenotrophomonas. She was given three days of Zosyn. She had an episode of AFib with RVR requiring cardioversion, now controlled on propafenone and metoprolol. Had also been on Eliquis, which was stopped 2? bloody tracheal secretions. She was afebrile almost the entire time she has been the here, except for a few isolated temperature spikes, the last one was a single temperature to 102 degrees on November 29. On November 30, her WBC bumped to 14 and she was started on Levaquin. That was then changed to Doxycycline. On November 29, FiO2 got as low as 40%, but the patient failed a weaning trial and FiO2 requirement has risen progressively. Dr. Gottlieb did tracheostomy and PEG on December 03. FiO2 has continued to rise and has been at 100% since the , along with a rise in her PvCO2 to the 70?s and then 80s. We tried paralyzing her, which was catastrophic bec we couldn?t ventilate her, Best Vt on PCV was about 280cc, with PIP in the 40?s. So we let the Nimbex wear off and got her breathing on PSV. For the last two days, we?ve gotten the best tidal vols on PSV with low dose fentanyl gtt. I?ve had daily conversations with the family (see below). Last chest x-ray on 12/05 showed no PTX, but her ARDS was worse. I started her on pulse steroids (1G daily x 3 days). Sputum grew out GNR, so we changed her to Zosyn. BUN/creat are climbing, with no response to a fluid load. DDimer was steady 600s, trop is low, BNP is 800s, DVT study was negative. BEDSIDE ECHO: Image quality: Very good. Findings: 1. At least moderate LVH. 2. LV cavity size is small, with hyperdynamic LV fxn, and no RWMA noted. EF 65-70%. 3. RV cavity is definitely enlarged, with RV:LV ratio 1.5-2.0, and a straightened septum. 4. Atria not adequately assessed. 5. AoV not adeq assessed. 6. MV morphologically normal trace MR by color rafal. 7. TV morphologically normal. With 2-3+ TR by color rafal, and CWD signal measuring 4.1 m/sec (gradient of 67mm). 8. IVC measured 2.44 cm w no insp collapse. Estimated CVP 15cm. Estimated RVSP 82mm. She was unable to be transported to CT or V/Q scan. She was started her on a heparin infusion. LABORATORY DATA: As below. Notably, WBC up to 19, BUN/creat up to 81/1.8, K down to 4.5 (after the K binder), bicarb 29. MICROBIOLOGY: Sputum GS from 12/04 shows 3+ polys, 4+GNR. Culture is growing 4+ GNR, yet to be ID?d. Last sputum from 12/01 grew stenotrophomonas\ 11/09/20 23:12 Consult to Infectious Diseases Routine Consulting Provider: Scarlet Quintero Reason for consultation: COVID pneumonia 11/19/20 07:15 Consult to Pulmonology Routine Consulting Provider: Abhay Baird Reason for consultation: previous contact Has provider been notified: Yes 11/19/20 10:01 Consult to Wound Care Routine Consulting Provider: Jeannette Garsia Reason for consultation: stage II on coccyx/ covid positive Attending physician on discharge: Sam Tafoya Discharging clinician: Sam Tafoya DS: Diagnosis Discharge Diagnosis (1) Pneumonia due to COVID-19 virus: Status: Acute (2) Fever, unknown origin: Status: Acute Problem details: She has possible causes lung ,resistant organisms Gram negative and gram positive possible staph or gram negative DS: Medications Discharge Medications Home Medications: Home Medications Medication Instructions Recorded Confirmed Eliquis 5 mg PO BID 07/22/20 11/10/20 Flovent HFA 1 puff INHALATION BID 07/22/20 11/10/20 Incruse Ellipta 1 inh INHALATION DAILY 07/22/20 11/10/20 acetaminophen 650 mg PO Q8H PRN 07/22/20 11/10/20 albuterol sulfate 2.5 mg INHALATION Q4H PRN 07/22/20 11/10/20 amlodipine [Norvasc] 5 mg PO DAILY 07/22/20 11/10/20 atorvastatin 80 mg PO DAILY 07/22/20 11/10/20 melatonin 3 mg PO BEDTIME PRN 07/22/20 11/10/20 metoprolol tartrate 75 mg PO BID 07/22/20 11/10/20 olanzapine [Zyprexa] 15 mg PO BEDTIME 07/22/20 11/10/20 pantoprazole [Protonix] 20 mg PO DAILY 07/22/20 11/10/20 potassium chloride [Klor-Con M20] 20 meq PO DAILY 07/22/20 11/10/20 sertraline 200 mg PO DAILY 07/22/20 11/10/20 spironolactone 50 mg PO DAILY 07/22/20 11/10/20 acetazolamide 250 mg tablet 250 mg PO BID tab 10/17/20 11/10/20 bumetanide 2 mg tablet 2 mg PO DAILY tab 10/17/20 11/10/20 Previous Rx's Medication Instructions Recorded albuterol sulfate [Ventolin HFA] 4 puff INHALATION Q3H PRN #1 g 08/03/20 metolazone 2.5 mg PO ONCE PRN #30 tab 08/03/20 trazodone 100 mg PO BEDTIME PRN #0 tab 08/03/20 isosorbide mononitrate 60 mg 60 mg PO QAM #90 tab 09/11/20 tablet,extended release 24 hr insulin degludec 100 unit/mL (3 60 unit SUBCUT BEDTIME 90 Days #60 10/17/20 mL) subcutaneous pen ml metformin 500 mg tablet,extended 500 mg PO BID 90 Days #180 tab 10/17/20 release 24hr insulin aspart U-100 100 unit/mL See Rx Instructions SUBCUT TID 90 10/21/20 (3 mL) subcutaneous pen Days #60 ml DS: Summary Time Spent with Patient Time attestation: Total time spent providing and/or coordinating discharge services: Discharge coordination time: Greater than 30 minutes Physical Exam Vital Signs: Vital Signs: Last Vital Signs Temp 97.7 F 12/07/20 19:46 Pulse 96 12/07/20 19:46 Resp 29 H 12/07/20 19:46 BP 113/64 12/07/20 19:46 Pulse Ox 71 L 12/07/20 19:46 Body Mass Index 53.2 DS: Data Data Completed and Pending Completed studies during hospitalization [Text1]: Procedures Assistance with Respiratory Ventilation, Less than 24 Consecutive Hours, Continuous Positive Airway Pressure (07/28/20) Labs on day of discharge: Laboratory Results - last 24 hr 12/06/20 12/06/20 12/07/20 22:56 23:00 01:09 WBC RBC Hgb Hct MCV MCH MCHC RDW Plt Count MPV Immature Gran % (Auto) Neut % (Auto) Lymph % (Auto) [place] % (Auto) Eos % (Auto) Baso % (Auto) Lymph # (Auto) [place] # (Auto) Eos # (Auto) Baso # (Auto) Abs Immat Gran (auto) Absolute Neuts (auto) Absolute Nucleated RBC Nucleated RBC % (auto) Neutrophils % (Manual) Band Neutrophils % Lymphocytes % (Manual) Monocytes % (Manual) Metamyelocytes % Myelocytes % Abs Neuts (Manual) Lymphocytes # (Manual) Monocytes # (Manual) Metamyelocytes # Myelocytes # Nucleated RBCs Toxic Vacuolation Platelet Estimate Large Platelets Plt Morphology Comment RBC Morphology Polychromasia Basophilic Stippling PT INR PTT (Heparin Protocol) > 200.0 H* D VBG pH VBG pCO2 VBG pO2 VBG HCO3 VBG O2 Saturation VBG Base Excess Sodium Potassium Chloride Carbon Dioxide Anion Gap BUN Creatinine Estim Creat Clear Calc Estimated GFR POC Glucose 183 H 163 H Random Glucose Calcium Total Bilirubin AST ALT Alkaline Phosphatase Total Protein Albumin 12/07/20 12/07/20 12/07/20 01:10 03:02 04:13 WBC RBC Hgb Hct MCV MCH MCHC RDW Plt Count MPV Immature Gran % (Auto) Neut % (Auto) Lymph % (Auto) [place] % (Auto) Eos % (Auto) Baso % (Auto) Lymph # (Auto) [place] # (Auto) Eos # (Auto) Baso # (Auto) Abs Immat Gran (auto) Absolute Neuts (auto) Absolute Nucleated RBC Nucleated RBC % (auto) Neutrophils % (Manual) Band Neutrophils % Lymphocytes % (Manual) Monocytes % (Manual) Metamyelocytes % Myelocytes % Abs Neuts (Manual) Lymphocytes # (Manual) Monocytes # (Manual) Metamyelocytes # Myelocytes # Nucleated RBCs Toxic Vacuolation Platelet Estimate Large Platelets Plt Morphology Comment RBC Morphology Polychromasia Basophilic Stippling PT INR PTT (Heparin Protocol) 187.4 H* 103.3 H D 76.7 D VBG pH VBG pCO2 VBG pO2 VBG HCO3 VBG O2 Saturation VBG Base Excess Sodium Potassium Chloride Carbon Dioxide Anion Gap BUN Creatinine Estim Creat Clear Calc Estimated GFR POC Glucose Random Glucose Calcium Total Bilirubin AST ALT Alkaline Phosphatase Total Protein Albumin 12/07/20 12/07/20 12/07/20 05:44 05:44 05:44 WBC 19.3 H RBC 3.95 L Hgb 10.1 L Hct 34.6 L MCV 87.6 MCH 25.6 L MCHC 29.2 L RDW 18.3 H Plt Count 265 MPV 9.9 Immature Gran % (Auto) Cancelled Neut % (Auto) Cancelled Lymph % (Auto) Cancelled [place] % (Auto) Cancelled Eos % (Auto) Cancelled Baso % (Auto) Cancelled Lymph # (Auto) Cancelled [place] # (Auto) Cancelled Eos # (Auto) Cancelled Baso # (Auto) Cancelled Abs Immat Gran (auto) Cancelled Absolute Neuts (auto) Cancelled Absolute Nucleated RBC 0.300 H Nucleated RBC % (auto) 1.6 H Neutrophils % (Manual) 76 H Band Neutrophils % 7 H Lymphocytes % (Manual) 2 L Monocytes % (Manual) 7 Metamyelocytes % 4 Myelocytes % 4 Abs Neuts (Manual) 16.0 H Lymphocytes # (Manual) 0.4 L Monocytes # (Manual) 1.4 H Metamyelocytes # 0.8 Myelocytes # 0.8 Nucleated RBCs 3 H Toxic Vacuolation PRESENT Platelet Estimate NORMAL Large Platelets PRESENT Plt Morphology Comment NORMAL RBC Morphology NOTED Polychromasia 1+ (0-2) Basophilic Stippling 1+ (0-2) PT 14.6 H INR 1.2 H PTT (Heparin Protocol) VBG pH VBG pCO2 VBG pO2 VBG HCO3 VBG O2 Saturation VBG Base Excess Sodium 143 Potassium 4.5 D Chloride 99 Carbon Dioxide 29 Anion Gap 20 BUN 81 H* Creatinine 1.81 H Estim Creat Clear Calc 45.4 Estimated GFR 28 POC Glucose Random Glucose 146 H Calcium 8.4 Total Bilirubin 1.4 H AST 50 H ALT 38 H Alkaline Phosphatase 122 H Total Protein 7.0 Albumin 3.1 L 12/07/20 12/07/20 12/07/20 05:48 09:24 10:29 WBC RBC Hgb Hct MCV MCH MCHC RDW Plt Count MPV Immature Gran % (Auto) Neut % (Auto) Lymph % (Auto) [place] % (Auto) Eos % (Auto) Baso % (Auto) Lymph # (Auto) [place] # (Auto) Eos # (Auto) Baso # (Auto) Abs Immat Gran (auto) Absolute Neuts (auto) Absolute Nucleated RBC Nucleated RBC % (auto) Neutrophils % (Manual) Band Neutrophils % Lymphocytes % (Manual) Monocytes % (Manual) Metamyelocytes % Myelocytes % Abs Neuts (Manual) Lymphocytes # (Manual) Monocytes # (Manual) Metamyelocytes # Myelocytes # Nucleated RBCs Toxic Vacuolation Platelet Estimate Large Platelets Plt Morphology Comment RBC Morphology Polychromasia Basophilic Stippling PT INR PTT (Heparin Protocol) 128.8 H* D VBG pH 7.24 L VBG pCO2 83 VBG pO2 47 VBG HCO3 36 H VBG O2 Saturation 72.0 VBG Base Excess 5.9 Sodium Potassium Chloride Carbon Dioxide Anion Gap BUN Creatinine Estim Creat Clear Calc Estimated GFR POC Glucose 112 Random Glucose Calcium Total Bilirubin AST ALT Alkaline Phosphatase Total Protein Albumin 12/07/20 12/07/20 12/07/20 11:48 12:04 13:04 WBC RBC Hgb Hct MCV MCH MCHC RDW Plt Count MPV Immature Gran % (Auto) Neut % (Auto) Lymph % (Auto) [place] % (Auto) Eos % (Auto) Baso % (Auto) Lymph # (Auto) [place] # (Auto) Eos # (Auto) Baso # (Auto) Abs Immat Gran (auto) Absolute Neuts (auto) Absolute Nucleated RBC Nucleated RBC % (auto) Neutrophils % (Manual) Band Neutrophils % Lymphocytes % (Manual) Monocytes % (Manual) Metamyelocytes % Myelocytes % Abs Neuts (Manual) Lymphocytes # (Manual) Monocytes # (Manual) Metamyelocytes # Myelocytes # Nucleated RBCs Toxic Vacuolation Platelet Estimate Large Platelets Plt Morphology Comment RBC Morphology Polychromasia Basophilic Stippling PT INR PTT (Heparin Protocol) 97.5 H D 66.2 D VBG pH VBG pCO2 VBG pO2 VBG HCO3 VBG O2 Saturation VBG Base Excess Sodium Potassium Chloride Carbon Dioxide Anion Gap BUN Creatinine Estim Creat Clear Calc Estimated GFR POC Glucose 170 H Random Glucose Calcium Total Bilirubin AST ALT Alkaline Phosphatase Total Protein Albumin 12/07/20 12/07/20 16:06 19:00 WBC RBC Hgb Hct MCV MCH MCHC RDW Plt Count MPV Immature Gran % (Auto) Neut % (Auto) Lymph % (Auto) [place] % (Auto) Eos % (Auto) Baso % (Auto) Lymph # (Auto) [place] # (Auto) Eos # (Auto) Baso # (Auto) Abs Immat Gran (auto) Absolute Neuts (auto) Absolute Nucleated RBC Nucleated RBC % (auto) Neutrophils % (Manual) Band Neutrophils % Lymphocytes % (Manual) Monocytes % (Manual) Metamyelocytes % Myelocytes % Abs Neuts (Manual) Lymphocytes # (Manual) Monocytes # (Manual) Metamyelocytes # Myelocytes # Nucleated RBCs Toxic Vacuolation Platelet Estimate Large Platelets Plt Morphology Comment RBC Morphology Polychromasia Basophilic Stippling PT INR PTT (Heparin Protocol) VBG pH VBG pCO2 VBG pO2 VBG HCO3 VBG O2 Saturation VBG Base Excess Sodium Potassium Chloride Carbon Dioxide Anion Gap BUN Creatinine Estim Creat Clear Calc Estimated GFR POC Glucose 159 H 154 H Random Glucose Calcium Total Bilirubin AST ALT Alkaline Phosphatase Total Protein Albumin Preliminary micro results at discharge 12/06/20 12:29 Blood Culture - Preliminary Blood - Venous No growth after 24 hours. 12/06/20 12:29 Blood Culture - Preliminary Blood - Venous No growth after 24 hours. Discharge Plan Discharge Date/Time: 12/07/20 20:17 Patient Disposition: Referrals: Mily Waite MD [Primary Care Provider] - Discharge Medications: No Action isosorbide mononitrate 60 mg tablet extended release 24 hr 60 mg PO QAM Qty: 90 RF: 0 insulin aspart U-100 [Novolog Flexpen U-100 Insulin] 100 unit/mL (3 mL) insulin pen See Rx Instructions subcut TID 90 Days Qty: 60 RF: 1 atorvastatin 80 mg Tablet 80 mg PO DAILY RF: 0 albuterol sulfate 2.5 mg /3 mL (0.083 %) Solution For Nebulization 2.5 mg INHALATION Q4H PRN (Reason: Shortness Of Breath) RF: 0 sertraline 100 mg Tablet 200 mg PO DAILY RF: 0 melatonin 3 mg Tablet 3 mg PO BEDTIME PRN (Reason: Sleep) RF: 0 amlodipine [Norvasc] 5 mg Tablet 5 mg PO DAILY RF: 0 acetaminophen 650 mg Tablet Extended Release 650 mg PO Q8H PRN (Reason: Pain (Scale Score 1-3)) RF: 0 pantoprazole [Protonix] 20 mg Tablet,Delayed Release (Dr/Ec) 20 mg PO DAILY RF: 0 potassium chloride [Klor-Con M20] 20 mEq Tablet,Er Particles/Crystals 20 meq PO DAILY RF: 0 metoprolol tartrate 50 mg Tablet 75 mg PO BID RF: 0 olanzapine [Zyprexa] 15 mg Tablet 15 mg PO BEDTIME RF: 0 Flovent HFA 110 mcg/actuation Hfa Aerosol Inhaler 1 puff INHALATION BID RF: 0 spironolactone 50 mg Tablet 50 mg PO DAILY RF: 0 Eliquis 5 mg Tablet 5 mg PO BID RF: 0 Incruse Ellipta 62.5 mcg/actuation Blister With Device 1 inh INHALATION DAILY RF: 0 bumetanide 2 mg tablet 2 mg PO DAILY RF: 0 metolazone 2.5 mg Tablet 2.5 mg PO ONCE PRN (Reason: Shortness Of Breath) Qty: 30 RF: 0 trazodone 100 mg Tablet 100 mg PO BEDTIME PRN (Reason: Sleep) Qty: 0 RF: 0 albuterol sulfate [Ventolin HFA] 90 mcg/actuation Hfa Aerosol Inhaler 4 puff inhalation Q3H PRN (Reason: Shortness Of Breath) Qty: 1 RF: 0 acetazolamide 250 mg tablet 250 mg PO BID RF: 0 Tresiba FlexTouch U-100 100 unit/mL (3 mL) insulin pen 60 unit subcut BEDTIME 90 Days Qty: 60 RF: 1 metformin 500 mg tablet extended release 24hr 500 mg PO BID 90 Days Qty: 180 RF: 1 Discharge Orders: Discharge Order (Routine); Ordered 12/07/20 Ordered By: Sam Tafoya Discharge Date/Time: 12/07/20 20:17
--- NOTE | 2020-12-07 23:43 | PC.NURSE ---
REMAINDER OF DRIP=- 60CC FENTANYL WASTED WITH RN CHAY. PATIENT DISCHARGED FROM [facility], UNABLE TO WASTE IN [facility].
== END 2020-12-07 20:17 | disposition expired | DRG 4 ==
LOC: HO.ED 23:11 → HO.EDOVER 23:54 → HO.IMC 11-10 06:55 → HO.ICU 11-18 12:35
PROVIDERS: Family Medicine; Internal Medicine; Internal Medicine Cardiovascular Disease; Internal Medicine Pulmonary Disease; Nurse Practitioner Family; Physician Assistant; Physician Assistant Medical; Registered Nurse Community Health; Surgery; Admitting Provider Hospitalist; Emergency Provider Internal Medicine; PCP Family Medicine; Visit Provider Anesthesiology
PROC: 0B113F4 Bypass Trachea to Cutaneous with Tracheostomy Device, Percutaneous Approach (ICD-10-PCS; principal; 2020-12-03 16:00)
PROC: 0DH63UZ Insertion of Feeding Device into Stomach, Percutaneous Approach (ICD-10-PCS; CPT 43246; 2020-12-03 16:00)
DX: U07.1 COVID-19 (principal); J12.82 Pneumonia due to coronavirus disease 2019; J80 Acute respiratory distress syndrome; Z68.43 Body mass index [BMI] 50.0-59.9, adult; I13.0 Hypertensive heart and chronic kidney disease with heart failure and stage 1 through stage 4 chronic kidney disease, or unspecified chronic kidney disease; I50.32 Chronic diastolic (congestive) heart failure; E66.2 Morbid (severe) obesity with alveolar hypoventilation; I25.10 Atherosclerotic heart disease of native coronary artery without angina pectoris; E78.5 Hyperlipidemia, unspecified; I48.0 Paroxysmal atrial fibrillation; Z86.711 Personal history of pulmonary embolism; E11.22 Type 2 diabetes mellitus with diabetic chronic kidney disease; E11.65 Type 2 diabetes mellitus with hyperglycemia; N18.32 Chronic kidney disease, stage 3b; I50.814 Right heart failure due to left heart failure; I34.0 Nonrheumatic mitral (valve) insufficiency; L89.322 Pressure ulcer of left buttock, stage 2; L89.312 Pressure ulcer of right buttock, stage 2; Z99.81 Dependence on supplemental oxygen; M17.0 Bilateral primary osteoarthritis of knee; Z79.4 Long term (current) use of insulin; Z79.01 Long term (current) use of anticoagulants; Z79.52 Long term (current) use of systemic steroids; Z79.899 Other long term (current) drug therapy
CPT/HCPCS: 0241U; 36415; 36600; 71045; 71250; 80048; 80053; 80076; 80202; 82040; 82550; 82728; 82803; 82947; 83605; 83615; 83735; 83880; 84100; 84145; 84439; 84443; 84481; 84484; 85007; 85025; 85027; 85379; 85610; 85730; 86140; 86850; 86900; 87040; 87070; 87077; 87147; 87186; 87205; 87635; 93005; 93306; 93970; 94002; 94003; 94640; 94644; 94660; 94799; 96365; 96366; 96367; 96375; 99284; 99291; J0282; J0610; J0690; J0696; J1100; J1160; J1940; J1956; J2250; J2270; J2370; J2543; J2765; J2930; J3010; J3370; J3475; J3490; J8540; P9047

== ENCOUNTER → 2021-11-13 13:49 | Outpatient (RCR) | payer MEDICARE, SELFPAY | END | disposition home or self-care (01) | LOC: HO.PT 06-26 12:04 | PROVIDERS: PCP Family Medicine; Visit Provider Family Medicine | DX: M17.0 Bilateral primary osteoarthritis of knee (principal) ==